=== PATIENT | female | born 1965 | race Caucasian/White ===

== ENCOUNTER 2016-10-11 13:12 | Inpatient (IN) | payer OTHER ==
[2016-10-11] VITALS (7 sets, daily range): BP systolic 124–174; BP diastolic 88–99; PULSE 84–99; RESP 16–18; TEMP 96.6–98.7; O2SAT 98–100
[~2016-10-11] VITALS: Ht 154.9 cm; Wt 48.9 kg
[~2016-10-11 13:12] MED LIST: ALAV10TA10 PO; ALBU0.08 NEB; CLON1TAB PO; GABA100C4 PO; LISI-515 PO; SODI1TAB PO; VENTAER INH
--- NOTE | 2016-10-11 14:44 | PD ---
HPI Chief Complaint: GI Complaint Time Seen by Provider: 14:26 Travel History International Travel<30 days: No Contact w/Intl Traveler<30days: No Traveled to known affect area: No History of Present Illness HPI 51-year-old female complains of nausea and poor appetite and generalized malaise and weakness. Patient states that symptoms started a week ago. Patient states that she has mild aching headache. Patient denies any visual change. Patient denies any neck pain. Patient denies any chest pain or shortness of breath. Patient denies abdominal pain. Patient states that she has nausea but no vomiting or diarrhea. Patient denies dysuria or frequency. Patient denies any fever chills. Patient denies any focal weakness and numbness of extremity. Patient was admitted on September 25 and discharged September 28 for hyponatremia, hypokalemia, COPD, anemia and depression. Patient has been taking sodium tablets as directed. Patient was advised to follow with waist pleater for hyponatremia problem. Patient has not seen a waist pleater as directed. Patient states that she did not take sodium tablets yesterday and today. Patient states that she has intermittent nausea vomiting for the past week. Patient denies any diarrhea. PFSH Past Medical History Hx Anticoagulant Therapy: No Asthma: Yes Autoimmune Disease: No Anxiety: No Depression: No Heart Rhythm Problems: No Cancer: No Cardiovascular Problems: Yes (HTN) High Cholesterol: No Chest Pain: No Congestive Heart Failure: No COPD: Yes Cerebrovascular Accident: No Diabetes: No Diminished Hearing: No Endocrine: No Gastrointestinal Disorders: Yes GERD: Yes Glaucoma: No Genitourinary: No Hepatitis: No Hypertension: Yes Immune Disorder: No Musculoskeletal: Yes Neurologic: Yes Psychiatric: No Reproductive: No Respiratory: Yes (ASTHMA) Immunizations Current: Yes Migraines: Yes Seizures: No Sleep Apnea: No Thyroid Disease: No Ulcer: Yes ?: Not Past Surgical History Abdominal Surgery: Yes (endoscopy and colonoscopy) Cardiac Surgery: No Genitourinary Surgery: No Gynecologic Surgery: Yes (tubal ligation and partial hysterectomy) Hysterectomy: Yes (2007) Pacemaker: No Thoracic Surgery: No Other Surgery: Yes (' BREAST AUGMENTATION ) Social History Alcohol Use: Yes (SOCIALLY) Tobacco Use: Yes (1.5PPD) Substance Use: Yes Allergies-Medications (Allergen,Severity, Reaction): Coded Allergies: Lipitor (Verified Adverse Reaction, Severe, Myalgia, 10/11/16) Codeine (Verified Adverse Reaction, Intermediate, Sedation, 10/11/16) Uncoded Allergies: SEASONAL ALLERGIES (Allergy, Mild, 03/13/08) estroven (Adverse Reaction, Intermediate, raised BP, 06/12/15) Reported Meds & Prescriptions Reported Meds & Active Scripts Active Lisinopril 20 Mg Tab 10 Mg PO DAILY Sodium Chloride 1 Gm Tab 500 Mg PO BID 30 Days Reported Clonazepam 1 Mg Tab 1 Mg PO BID Albuterol Neb (Albuterol Sulfate) 2.5 Mg/3 Ml Neb 2.5 Mg NEB Q2HR While awake Ventolin Hfa 18 GM Inh (Albuterol Sulfate) 90 Mcg/Act Aer 2 Puff INH Q6H PRN Gabapentin 100 Mg Cap 100 Mg PO 5 TIMES A DAY Alavert (Loratadine) 10 Mg Tab 10 Mg PO DAILY Review of Systems General / Constitutional: No: Fever Eyes: No: Visual changes HENT: Positive: Headaches Cardiovascular: No: Chest Pain or Discomfort Respiratory: No: Shortness of Breath Gastrointestinal: No: Abdominal Pain Genitourinary: No: Dysuria Musculoskeletal: No: Pain Skin: No Rash Neurologic: No: Weakness Psychiatric: No: Depression Endocrine: No: Polydipsia Hematologic/Lymphatic: No: Easy Bruising Physical Exam Narrative GENERAL: Well-nourished, well-developed patient. SKIN: Warm and dry. HEAD: Normocephalic. EYES: No scleral icterus. No injection or drainage. NECK: Supple, trachea midline. No JVD or lymphadenopathy. CARDIOVASCULAR: Regular rate and rhythm without murmurs, gallops, or rubs. RESPIRATORY: Breath sounds equal bilaterally. No accessory muscle use. GASTROINTESTINAL: Abdomen soft, non-tender, nondistended. MUSCULOSKELETAL: No cyanosis, or edema. BACK: Nontender without obvious deformity. No CVA tenderness. Neurologic exam normal. Data Data Last Documented VS Vital Signs Date Time Temp Pulse Resp B/P Pulse Ox O2 Delivery O2 Flow Rate FiO2 10/11/16 15:09 16 100 Room Air 10/11/16 13:47 98.7 99 124/89 Orders Electrocardiogram (10/11/16 14:31) Complete Blood Count With Diff (10/11/16 14:31) Comprehensive Metabolic Panel (10/11/16 14:31) Lipase (10/11/16 14:31) Urinalysis - C+S If Indicated (10/11/16 14:31) Thyroid Stimulating Hormone (10/11/16 14:31) Iv Access Insert/Monitor (10/11/16 14:31) Ecg Monitoring (10/11/16 14:31) Oximetry (10/11/16 14:31) Ns + Kcl 20 Meq Inj (Ns + Kcl 20 Meq Inj (10/11/16 14:45) Sodium Chlor 0.9% 1000 Ml Inj (Ns 1000 M (10/11/16 16:45) Labs Laboratory Tests Test 10/11/16 15:05 White Blood Count 7.8 TH/MM3 Red Blood Count 3.95 MIL/MM3 Hemoglobin 11.0 GM/DL Hematocrit 33.3 % Mean Corpuscular Volume 84.4 FL Mean Corpuscular Hemoglobin 27.8 PG Mean Corpuscular Hemoglobin 33.0 % Concent Red Cell Distribution Width 15.1 % Platelet Count 385 TH/MM3 Mean Platelet Volume 8.6 FL Neutrophils (%) (Auto) 73.2 % Lymphocytes (%) (Auto) 16.7 % Monocytes (%) (Auto) 5.2 % Eosinophils (%) (Auto) 0.6 % Basophils (%) (Auto) 4.3 % Neutrophils # (Auto) 5.8 TH/MM3 Lymphocytes # (Auto) 1.3 TH/MM3 Monocytes # (Auto) 0.4 TH/MM3 Eosinophils # (Auto) 0.0 TH/MM3 Basophils # (Auto) 0.3 TH/MM3 CBC Comment DIFF FINAL Differential Comment Sodium Level 113 MEQ/L Potassium Level 3.4 MEQ/L Chloride Level 76 MEQ/L Carbon Dioxide Level 22.1 MEQ/L Anion Gap 15 MEQ/L Blood Urea Nitrogen 4 MG/DL Creatinine 0.52 MG/DL Estimat Glomerular Filtration 124 ML/MIN Rate Random Glucose 98 MG/DL Calcium Level 8.6 MG/DL Total Bilirubin 0.6 MG/DL Aspartate Amino Transf 20 U/L (AST/SGOT) Alanine Aminotransferase 14 U/L (ALT/SGPT) Alkaline Phosphatase 99 U/L Total Protein 7.4 GM/DL Albumin 3.5 GM/DL Lipase 85 U/L Thyroid Stimulating Hormone 0.622 uIU/ML 3rd Gen [facility] Medical Decision Making Medical Screen Exam Complete: Yes Emergency Medical Condition: Yes Interpretation(s) 1626 PM. CBC within normal limit. Sodium 113. Potassium 3.4. TSH normal. Differential Diagnosis Differential diagnosis including electrolyte imbalance, dehydration, viral syndrome, UTI, sepsis. Narrative Course 51-year-old female with nausea, poor appetite and generalized malaise. History of hyponatremia and hypokalemia. Normal saline solution 1 L IV bolus. Normal saline solution with 20 mEq KCl per liter at 1 25 cc an hour. Diagnosis Primary Impression: Hyponatremia Additional Impression: Hypokalemia Admitting Information Admitting Physician Requests: Admit Martin Tom MD Oct 11, 2016 14:43
[2016-10-11] MEDS ORDERED: NS + KCL 20 MEQ INJ 1,000 ML IV SCH ×2 (14:45→17:30)
[2016-10-11 15:13] LABS: AUTOMATED NEUTROPHIL # 5.8 TH/MM3 (1.8-7.7); BASOPHIL # 0.3 TH/MM3 (0-0.2); BASOPHIL % 4.3 % (0.0-2.0); EOSINOPHIL % 0.6 % (0.0-4.0); HEMATOCRIT 33.3 % (35.0-46.0); HEMO FLAGS DIFF FINAL; LYMPH % 16.7 % (9.0-44.0); LYMPHOCYTE # 1.3 TH/MM3 (1.0-4.8); MEAN CELL VOLUME 84.4 FL (80.0-100.0); MEAN CORPUSCULAR HEMOGLOBIN 27.8 PG (27.0-34.0); MONO % 5.2 % (0.0-8.0); NEUT % 73.2 % (16.0-70.0); PLATELET COUNT 385 TH/MM3 (150-450); RED BLOOD COUNT 3.95 MIL/MM3 (4.00-5.30); RED CELL DISTRIBUTION WIDTH 15.1 % (11.6-17.2); WHITE BLOOD COUNT 7.8 TH/MM3 (4.0-11.0)
[2016-10-11 15:54] LABS: ALKALINE PHOSPHATASE 99 U/L (45-117); ALT (GPT) 14 U/L (10-53); ANION GAP 15 MEQ/L (5-15); AST (GOT) 20 U/L (15-37); BICARBONATE 22.1 MEQ/L (21.0-32.0); BLOOD UREA NITROGEN 4 MG/DL (7-18); CHLORIDE 76 MEQ/L (98-107); GLOMERULAR FILTRATION RATE 124 ML/MIN (>89); POTASSIUM 3.4 MEQ/L (3.5-5.1); TOTAL BILIRUBIN ADULT 0.6 MG/DL (0.2-1.0)
[2016-10-11 15:59] LABS: SODIUM (NA) 113 MEQ/L (136-145)
[2016-10-11] MEDS ORDERED: SODIUM CHLOR 0.9% 1000 ML INJ 1,000 ML IV ONE (16:45)
[2016-10-11] MEDS ORDERED: SODIUM CHLORIDE 0.9% FLUSH 5 ML FLUSH IVF PRN (17:00)
[2016-10-11] MEDS ORDERED: ONDANSETRON HCL 4 MG/2 ML VIAL IV PRN (17:00)
[2016-10-11] MEDS: ACETAMINOPHEN 325 MG TAB PO PRN ×2 (17:29→20:01)
[2016-10-11] MEDS ORDERED: ACETAMINOPHEN 325 MG TAB PO ONE (17:30)
[2016-10-11] MEDS ORDERED: IBUPROFEN 600 MG TAB PO ONE (17:30)
[2016-10-11] MEDS ORDERED: ONDANSETRON HCL 4 MG/2 ML VIAL IVP PRN (17:30)
[2016-10-11] MEDS ORDERED: NALOXONE HCL 0.4 MG/ML AMP IV PRN (17:30)
[2016-10-11] MEDS ORDERED: TOLVAPTAN 15 MG TAB PO STA (18:14)
[2016-10-11] MEDS ORDERED: TOLVAPTAN 30 MG TAB PO ONE (18:30)
[2016-10-11] MEDS: SODIUM CHLORIDE 0.9% FLUSH 5 ML FLUSH FLUSH SCH (20:01)
[2016-10-11] MEDS ORDERED: SODIUM CHLORIDE 0.9% FLUSH 5 ML FLUSH IVF SCH (21:00)
[2016-10-11 21:35] LABS: BICARBONATE 20.5 MEQ/L (21.0-32.0)
[2016-10-11 21:43] LABS: POTASSIUM 2.9 MEQ/L (3.5-5.1)
[2016-10-11] MEDS ORDERED: 1/2 NS + KCL 20 MEQ INJ 1,000 ML IV SCH (22:45)
[2016-10-11] MEDS ORDERED: POTASSIUM CHLORIDE 20 MEQ CONTROLLED RELEASE TAB PO ONE (23:00)
[2016-10-11] MEDS ORDERED: DEXTROSE 5% IV PRN (23:15)
[2016-10-11] MEDS ORDERED: WATE IV PRN (23:15)
[2016-10-12] VITALS (8 sets, daily range): BP systolic 97–131; BP diastolic 64–95; PULSE 72–95; RESP 16–20; TEMP 97.1–98.1; O2SAT 87–100
[2016-10-12] MEDS: DEXTROSE 5% IV PRN ×2 (00:02→03:29)
[2016-10-12] MEDS: WATE IV PRN ×2 (00:02→03:29)
[2016-10-12] MEDS: SODIUM CHLORIDE 0.9% FLUSH 5 ML FLUSH FLUSH PRN ×2 (00:03→03:30)
--- NOTE | 2016-10-12 00:06 | RADHPO ---
EXAM DATE/TIME: 10/11/2016 22:53 [facility] COMPARISON: CT ABDOMEN & PELVIS W CONTRAST, October 22, 2014, 15:48. CHEST SINGLE AP, August 05, 2016, 13:44. INDICATIONS : Evaluate for neoplasm. Severe hypotremia. RADIATION DOSE: 6.19 CTDIvol (mGy) MEDICAL HISTORY : Gastroesophageal reflux disease. Chronic obstructive pulmonary disease. Hypertension. SURGICAL HISTORY : Hysterectomy. ENCOUNTER: Initial ACUITY: 1 day PAIN SCALE: 0/10 LOCATION: chest TECHNIQUE: Volumetric scanning of the chest was performed. Using automated exposure control and adjustment of t he mA and/or kV according to patient size, radiation dose was kept as low as reasonably achievable to obtain optimal diagnostic quality images. FINDINGS: LUNGS: There is a masslike area consolidation involving the medial left upper lobe. This extends from the ramirez perior portion of the hilum anteriorly and superiorly. This lesion measures 7.3 x 5.9-2.4 cm. Scatter ed areas of groundglass opacity are seen throughout the remaining lungs bilaterally but most pronounc ed within the left lower lobe. PLEURAE: A tiny left pleural effusion. No effusion on the right. MEDIASTINUM: The heart is normal in size. Significant coronary artery atherosclerotic calcifications noted. Aorta and pulmonary arteries are normal in caliber. Mediastinal adenopathy is seen involving anterior media stinum. The largest lymph node is within the aorticopulmonary window measuring 2.3 x 1.3 cm. No peric ardial effusion. AXILLAE: Within normal limits. No lymphadenopathy. MUSCULOSKELETAL: Within normal limits for patient age. MISCELLANEOUS: Multiple low density masses are seen within the visualized portions of the liver. The largest is with in the right lobe measuring 2.8 cm. Bilateral breast implants. CONCLUSION: 1. Mass-like consolidation involving the left upper lobe with metastatic involvement to the liver and mediastinal lymph nodes. The dominant hepatic lesion is percutaneously accessible for biopsy. Baron Layton Jr., MD on October 11, 2016 at 23:58 Board Certified Radiologist. This report was verified electronically.
[2016-10-12 00:18] LABS: BLOOD, URINE TRACE (NEG); GLUCOSE,URINE NEG (NEG); KETONE, URINE NEG (NEG); NITRITE,URINE NEG (NEG)
[2016-10-12 00:25] LABS: METHOD OF COLLECTION CLEAN CATCH; URINE COLOR STRAW (YELLW/STRAW)
[2016-10-12 00:26] LABS: RBC, URINE 0-3 /hpf (0-3); SQUAMOUS EPITHELIAL CELL URINE 0-5 /hpf (0-5)
[2016-10-12 00:29] LABS: COMMENT (UR) CULT NOT INDICATED; CULTURE IF INDICATED CULT NOT INDICATED
[2016-10-12] MEDS: ACETAMINOPHEN 325 MG TAB PO PRN ×2 (04:58→14:32)
[2016-10-12 06:23] LABS: BASOPHIL % 0.5 % (0.0-2.0); EOSINOPHIL % 0.3 % (0.0-4.0); HEMATOCRIT 30.5 % (35.0-46.0); LYMPH % 20.2 % (9.0-44.0); LYMPHOCYTE # 1.2 TH/MM3 (1.0-4.8); MEAN CELL VOLUME 83.8 FL (80.0-100.0); MEAN CORPUSCULAR HEMOGLOBIN 27.9 PG (27.0-34.0); MEAN CORPUSCULAR HGB CONC 33.3 % (32.0-36.0); MONO % 10.4 % (0.0-8.0); NEUT % 68.6 % (16.0-70.0); PLATELET COUNT 384 TH/MM3 (150-450); RED BLOOD COUNT 3.64 MIL/MM3 (4.00-5.30); RED CELL DISTRIBUTION WIDTH 15.8 % (11.6-17.2); WHITE BLOOD COUNT 5.8 TH/MM3 (4.0-11.0)
[2016-10-12 06:27] LABS: HEMO FLAGS AUTO DIFF
[2016-10-12 06:43] LABS: BICARBONATE 22.1 MEQ/L (21.0-32.0); POTASSIUM 4.2 MEQ/L (3.5-5.1)
[2016-10-12 07:35] LABS: SCAN/DIFF AUTO DIFF CONFIRMED
[2016-10-12] MEDS: SODIUM CHLORIDE 0.9% FLUSH 5 ML FLUSH FLUSH SCH ×2 (09:00→20:58)
--- NOTE | 2016-10-12 09:26 | PD.CONS ---
HPI Consult Requested By Reason for Consult Hyponatremia Primary Care Physician Adele Chow History of Present Illness This is my first encounter with this patient who apparently has been admitted multiple times previously with hyponatremia. 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 Patient has been on salt pills previously but somewhat noncompliant. Has not followed up with a tissue inserter as an outpatient apparently. On questioning patient she indicated that she has been smoking since the age of 11 and continues to do so. Patient now presents again with complaints of nausea , anorexia. No history of thiazide diuretic usage, significant NSAID usage, denying excessive fluid intake also. No previous history of hypo-thyroidism and she has been screened for same in the past. Review of Systems Respiratory: COMPLAINS OF: Cough, DENIES: Apneas, Snoring, Wheezing, Hemoptysis, Sputum production, Shortness of breath Cardiovascular: DENIES: Chest pain, Palpitations, Syncope, Dyspnea on Exertion , PND, Lower Extremity Edema, Orthopnea, Claudication Gastrointestinal: COMPLAINS OF: Anorexia, DENIES: Abdominal pain, Black stools , Bloody stools, Constipation, Diarrhea, Nausea, Vomiting, Difficulty Swallowing Genitourinary: DENIES: Abnormal vaginal bleeding, Dysmenorrhea, Dyspareunia, Sexual dysfunction, Urinary frequency, Urinary incontinence, Urgency, Hematuria , Dysuria, Nocturia, Vaginal discharge Past Family Social History Allergies: Coded Allergies: Lipitor (Verified Adverse Reaction, Severe, Myalgia, 10/11/16) Codeine (Verified Adverse Reaction, Intermediate, Sedation, 10/11/16) Uncoded Allergies: SEASONAL ALLERGIES (Allergy, Mild, 03/13/08) estroven (Adverse Reaction, Intermediate, raised BP, 06/12/15) Past Medical History COPD Chronic tobacco use Recurrent hyponatremia with previous admissions. Past Surgical History Noncontributory to current complaint. Reported Medications Reported Meds & Active Scripts Active Lisinopril 20 Mg Tab 10 Mg PO DAILY Sodium Chloride 1 Gm Tab 500 Mg PO BID 30 Days Reported Clonazepam 1 Mg Tab 1 Mg PO BID Albuterol Neb (Albuterol Sulfate) 2.5 Mg/3 Ml Neb 2.5 Mg NEB Q2HR While awake Ventolin Hfa 18 GM Inh (Albuterol Sulfate) 90 Mcg/Act Aer 2 Puff INH Q6H PRN Gabapentin 100 Mg Cap 100 Mg PO 5 TIMES A DAY Alavert (Loratadine) 10 Mg Tab 10 Mg PO DAILY Active Ordered Medications Current Medications Potassium Chloride/Sodium Chloride 1,000 ml @ 125 mls/hr Q8H IV Last administered on 10/11/16 14:54; Start 10/11/16 at 14:45; Stop 10/11/16 at 22:42; Status DC Sodium Chloride (NS 1000 ml Inj) 1,000 ml @ 999 mls/hr BOLUS ONCE IV Last administered on 10/11/16 16:52; Start 10/11/16 at 16:45; Stop 10/11/16 at 17:45; Status DC Ondansetron HCl (Zofran Inj) 4 mg Q6H PRN IV NAUSEA OR VOMITING; Start 10/11/16 at 17:00 IV Flush (NS Flush) 2 ml BID IVF ; Start 10/11/16 at 21:00; Stop 10/11/16 at 22:44 ; Status DC IV Flush (NS Flush) 2 ml UNSCH PRN IVF FLUSH AFTER USING IV ACCESS; Start at 17:00; Stop 10/11/16 at 22:44; Status DC Ibuprofen (Motrin) 600 mg ONCE ONCE PO ; Start 10/11/16 at 17:30; Stop 10/11/16 at 17:31; Status DC IV Flush (NS Flush) 2 ml UNSCH PRN FLUSH FLUSH AFTER USING IV ACCESS Last administered on 10/12/16 03:30; Start 10/11/16 at 17:30 IV Flush (NS Flush) 2 ml BID FLUSH Last administered on 10/12/16 09:00; Start 10/11/16 at 21:00 Acetaminophen (Tylenol) 650 mg Q4H PRN PO TEMP > 100.4 Last administered on 10/12 04:58; Start 10/11/16 at 17:30 Ondansetron HCl (Zofran Inj) 4 mg Q6H PRN IVP NAUSEA OR VOMITING; Start at 17:30; Stop 10/11/16 at 17:30; Status DC Naloxone HCl 0.4 mg 0.4 mg UNSCH PRN IV SEE LABEL COMMENTS; Start 10/11/16 at 17 :30 Potassium Chloride/Sodium Chloride (NS + KCl 20 Meq Inj) 1,000 ml @ 125 mls/hr Q8H IV ; Start 10/11/16 at 17:30; Stop 10/11/16 at 22:42; Status DC Acetaminophen (Tylenol) 650 mg ONCE ONCE PO ; Start 10/11/16 at 17:30; Stop 10/11 at 17:31; Status DC Tolvaptan (Samsca) 15 mg ONCE STAT PO ; Start 10/11/16 at 18:14; Stop 10/11/16 at 18:22; Status DC Tolvaptan 15 mg 15 mg STAT ONCE PO Last administered on 10/11/16 18:30; Start 10/11/16 at 18:30; Stop 10/11/16 at 18:31; Status DC Potassium Chloride/Sodium Chloride (10/10 NS + KCl 20 Meq Inj) 1,000 ml @ 75 mls/ hr [id number] IV ; Start 10/11/16 at 22:45; Stop 10/11/16 at 23:06; Status DC Potassium Chloride 40 meq 40 meq NOW ONCE PO Last administered on 10/11/16 23: 43; Start 10/11/16 at 23:00; Stop 10/11/16 at 23:02; Status DC Dextrose 400 ml @ 200 mls/hr BOLUS PRN IV As per Comments X 1.; Start 10/11/16 at 23:15; Stop 10/12/16 at 00:00; Status DC Dextrose 400 ml @ 200 mls/hr BOLUS PRN IV SEE COMMENTS Last administered on 03:29; Start 10/12/16 at 00:15 Dextrose (D5W 500 ml Inj) 500 ml @ 250 mls/hr BOLUS ONCE IV ; Start 10/12/16 at 09:30; Stop 10/12/16 at 11:29; Status UNV Desmopressin Acetate (Ddavp Inj) 1 mcg ONCE ONCE IV PUSH ; Start 10/12/16 at 09: 30; Stop 10/12/16 at 09:31; Status UNV Family History Noncontributory to current complaint. Social History Alcohol usage said to have been discontinued several months ago. Ongoing chronic tobacco usage since the age of 11. Physical Exam Vital Signs Vital Signs Date Time Temp Pulse Resp B/P Pulse Ox O2 Delivery O2 Flow Rate FiO2 10/12/16 04:00 97.3 87 18 102/70 87 1/4/17 00:00 97.2 91 18 97/64 97 10/11/16 20:00 96 10/11/16 20:00 96.7 85 18 155/94 100 10/11/16 20:00 98 21 10/11/16 18:48 174/88 10/11/16 18:19 96.6 87 16 174/99 100 10/11/16 16:53 84 16 158/99 98 Room Air 10/11/16 16:50 98 21 10/11/16 15:09 16 100 Room Air 10/11/16 13:47 98.7 99 16 124/89 100 Physical Exam GENERAL: Not in respiratory distress. SKIN: Warm and dry. HEAD: Normocephalic. EYES: No scleral icterus. No injection or drainage. NECK: Supple, trachea midline. No JVD or lymphadenopathy. CARDIOVASCULAR: Regular rate and rhythm without murmurs, gallops, or rubs. RESPIRATORY: Breath sounds equal bilaterally. No accessory muscle use. GASTROINTESTINAL: Abdomen soft, non-tender, nondistended. MUSCULOSKELETAL: No cyanosis, or edema. No CVA tenderness. Laboratory Laboratory Tests Test 10/11/16 10/11/16 10/11/16 10/12/16 15:05 21:09 22:00 02:50 White Blood Count 7.8 Red Blood Count 3.95 Hemoglobin 11.0 Hematocrit 33.3 Mean Corpuscular Volume 84.4 Mean Corpuscular Hemoglobin 27.8 Mean Corpuscular Hemoglobin 33.0 Concent Red Cell Distribution Width 15.1 Platelet Count 385 Mean Platelet Volume 8.6 Neutrophils (%) (Auto) 73.2 Lymphocytes (%) (Auto) 16.7 Monocytes (%) (Auto) 5.2 Eosinophils (%) (Auto) 0.6 Basophils (%) (Auto) 4.3 Neutrophils # (Auto) 5.8 Lymphocytes # (Auto) 1.3 Monocytes # (Auto) 0.4 Eosinophils # (Auto) 0.0 Basophils # (Auto) 0.3 CBC Comment DIFF FINAL Differential Comment Sodium Level 113 122 129 Potassium Level 3.4 2.9 Chloride Level 76 89 Carbon Dioxide Level 22.1 20.5 Anion Gap 15 13 Blood Urea Nitrogen 4 4 Creatinine 0.52 0.66 Estimat Glomerular Filtration 124 94 Rate Random Glucose 98 125 Calcium Level 8.6 8.0 Total Bilirubin 0.6 Aspartate Amino Transf 20 (AST/SGOT) Alanine Aminotransferase 14 (ALT/SGPT) Alkaline Phosphatase 99 Total Protein 7.4 Albumin 3.5 Lipase 85 Thyroid Stimulating Hormone 0.622 3rd Gen Ethyl Alcohol Level 0 Urine Collection Type CLEAN CATCH Urine Color STRAW Urine Turbidity CLEAR Urine pH 6.0 Urine Specific Rousseau 1.001 Urine Protein NEG Urine Glucose (UA) NEG Urine Ketones NEG Urine Occult Blood TRACE Urine Nitrite NEG Urine Bilirubin NEG Urine Leukocyte Esterase NEG Urine RBC 0-3 Urine Squamous Epithelial 0-5 Cells Urine Amorphous Sediment SMALL Microscopic Urinalysis Comment CULT NOT INDICATED Test 10/12/16 05:35 White Blood Count 5.8 Red Blood Count 3.64 Hemoglobin 10.1 Hematocrit 30.5 Mean Corpuscular Volume 83.8 Mean Corpuscular Hemoglobin 27.9 Mean Corpuscular Hemoglobin 33.3 Concent Red Cell Distribution Width 15.8 Platelet Count 384 Mean Platelet Volume 9.2 Neutrophils (%) (Auto) 68.6 Lymphocytes (%) (Auto) 20.2 Monocytes (%) (Auto) 10.4 Eosinophils (%) (Auto) 0.3 Basophils (%) (Auto) 0.5 Neutrophils # (Auto) 4.0 Lymphocytes # (Auto) 1.2 Monocytes # (Auto) 0.6 Eosinophils # (Auto) 0.0 Basophils # (Auto) 0.0 CBC Comment AUTO DIFF Differential Comment AUTO DIFF CONFIRMED Sodium Level 130 Potassium Level 4.2 Chloride Level 98 Carbon Dioxide Level 22.1 Anion Gap 10 Blood Urea Nitrogen 2 Creatinine 0.62 Estimat Glomerular Filtration 101 Rate Random Glucose 121 Calcium Level 9.0 Result Diagram: 10/12/16 0535 10/12/16 0535 Imaging Last [address] 10/11/16 0000 Signed Impressions: Service Date/Time: Tuesday, October 11, 2016 22:53 - CONCLUSION: 1. Mass-like consolidation involving the left upper lobe with metastatic involvement to the liver and mediastinal lymph nodes. The dominant hepatic lesion is percutaneously accessible for biopsy. Baron Layton Jr., MD Assessment and Plan Problem List: (1) Hyponatremia Plan: This is my first encounter with this patient who has been admitted previously with hyponatremia. Patient may have had idiopathic SIADH based on previous urine osmolalities from previous admissions however in view of tobacco history I ordered a CT of the chest and there is evidence of masslike lesion involving the left upper lobe with suggestion of metastatic involvement of the liver. I informed the patient that there is a lesion within her lung and that she would be seeing pulmonary. Patient may have small cell carcinoma the lung. Agree with pulmonary consultation and she may require oncology consultation also. 1 dose of Samsca was administered last night. Serum sodium level is improving more rapidly than I would like. 2 doses of D5W have been administered overnight and we will order another bolus with 1 dose of desmopressin with follow-up of the sodium level. The patient indicated that Samsca was very expensive and she cannot afford same and also the FDA does not recommend usage beyond 30 days regardless. I advised her that I would likely have to resume sodium chloride pills with fluid restriction and I emphasize the importance of compliance with same post discharge. Patient will be seen when necessary. Please do not hesitate to call. Discussed Condition With Patient. Rafiq Rai MD Oct 12, 2016 09:26
[2016-10-12] MEDS ORDERED: DEXTROSE 5% IN WATE 500 ML INJ 500 ML IV ONE ×2 (09:30→18:45)
[2016-10-12] MEDS ORDERED: DESMOPRESSIN ACETATE 4 MCG/ML VIAL IV PUSH ONE ×3 (09:30→18:45)
--- NOTE | 2016-10-12 11:44 | EKG ---
Date Performed: 10/11/2016 Time Performed: 14:54:42 PTAGE: 51 years EKG: Sinus rhythm Possible left atrial abnormality rSr'(V1) - probable normal variant Possible inferior infarct - age undetermined Septal ST changes are nonspecific Abnormal ECG PREVIOUS TRACING : 09/25/2016 13.36 DOCTOR: Jamel Rausch Interpretating Date/Time 10/12/2016 11:43:10
[2016-10-12] MEDS ORDERED: ALBUTEROL SULFATE 90 MCG/ACT HFA 8 GM INHALER INH PRN (14:15)
[2016-10-12] MEDS: clonazePAM 1 MG TAB PO SCH ×2 (14:15→20:59)
[2016-10-12] MEDS: LORATADINE 10 MG TAB PO SCH (14:28)
[2016-10-12] MEDS: SODIUM CHLORIDE 1 GRAM TAB PO SCH ×2 (14:28→20:59)
--- NOTE | 2016-10-12 14:48 | MH ---
cc: ULI GARNETT MD DATE OF ADMISSION: 10/11/2016 CHIEF COMPLAINT Generalized weakness HISTORY OF PRESENT ILLNESS This is 51-year-old female with past medical and surgical history significant for hypertension, GERD, COPD, asthma, stomach ulcer, history of endoscopy and colonoscopy in the past, tubal ligation and partial hysterectomy in 2007 and breast augmentation in 1992, who came to the ER at [facility] complaining of nausea and poor appetite and generalized malaise and weakness. She feels very weak and tired. She denies any chest pain, any shortness of breath. She denies any abdominal pain. She has a mild achy headache. Denies any visual changes. Denies any neck pain. Denies any neck stiffness. Denies any fever or chills. Denies any blood in the stool. Denies any nausea, vomiting or diarrhea. The patient denies any difficulty with urination, painful urination or UTI symptoms. Denies any focal weakness or numbness. She was admitted on September 25 and discharged on September 28 for hyponatremia and hypokalemia, COPD, anemia and depression. Other than that her sodium on that admission was 113 and now sodium increased is increased to 133. The patient also had a low potassium of 2.9 which improved to 4.2. The patient denies any symptoms at the time of examination. The nurse, Torie, was present in the room during the whole time. All questions were answered to the patient's satisfaction. Other than that nothing significant. PAST MEDICAL/SURGICAL HISTORY As dictated above. SOCIAL HISTORY She smoked 1-1/2 packs a day since the age of 11. She drank socially but says she quit. Denies any drug abuse. She lives at home with her and she is unemployed. FAMILY HISTORY Her father had a heart attack. ALLERGIES 1. LIPITOR. 2. CODEINE. 3. SEASONAL ALLERGIES. 4. ESTROVEN. MEDICATIONS 1. Lisinopril 20 mg p.o. daily. 2. Sodium chloride 1 mg p.o. b.i.d. 3. Clonazepam 1 mg p.o. b.i.d. 4. Albuterol nebulization 2.5 mg q.2h. 5. Ventolin HFA 18 mcg, two puffs inhalation q.6h. 6. Gabapentin 100 mg five times a day. 7. Alavert 10 mg p.o. daily. REVIEW OF SYSTEMS The review of systems is negative except for feeling weak and tired. PHYSICAL EXAMINATION GENERAL: This is a 51-year-old female sitting on the bed, not in acute distress. VITAL SIGNS: Temperature 97.7, heart rate 91, respirations 18, blood pressure 121/85. O2 saturation 98% on room air. HEENT: Normocephalic, atraumatic. EOMI. PERRL. Oral mucosa moist. NECK: Supple. No visible thyromegaly or neck mass. Trachea is central. CARDIOVASCULAR: Regular rate and rhythm. LUNGS: Respiration is bilaterally clear to auscultation. ABDOMEN: Soft, nontender. Bowel sounds audible. EXTREMITIES: No cyanosis or clubbing. Full range of motion of all extremities. NEUROLOGIC: Awake, alert, oriented x4. No focal deficit. SKIN: Warm and dry. PSYCHIATRIC: Patient is cooperative. Mood and affect are normal. LABORATORY DATA CBC shows a WBC count of 5.8. Hemoglobin was 11.0 now it is 10.1. Hematocrit was 33.3 now it is 30.5. [place] is 10.4 high, neutrophils 73.2 high. BMP is totally unremarkable except for sodium was 113 now it is 133, potassium was 3.4 now it is 4.2, chloride was 89 now it is 98, carbon dioxide was 20.5 now it is 22.1. BUN 4 low. Glucose random 121 high. Ethyl alcohol 0. Urinalysis shows trace occult blood, specific gravity 1.0. IMAGING DATA CT chest was done and shows a mass-like consolidation involving the left upper lobe with metastatic involvement to the liver and mediastinal lymph nodes. A dominant hepatic lesion is percutaneously assessable for biopsy. ASSESSMENT AND PLAN 1. This is 51-year-old female who came to the ER diagnosed with generalized weakness, most likely secondary to hyponatremia and hypokalemia. The patient's sodium and potassium have improved. Nephrology, Dr. Manuel, has seen the patient. Per nephrology Samsca is very expensive and cannot afford. The same also does not recommend usage beyond 30 days regardless and they recommended to resume the sodium chloride pill with fluid restriction. She has a mass-like consolidative involving the left upper lobe with metastatic involvement of the liver and mediastinal lymph nodes. No hepatic lesion is percutaneous accessible for biopsy. I will consult pulmonology and oncology. The patient was advised to quit smoking. She has been smoking since the age of 11. 2. History of smoking. Patient advised to quit. 3. Hypertension. Continue home medication. 4. History of anxiety. Continue home medication. 5. We are going to manage the patient on a daily basis and make recommendations on a daily basis. Uli Garnett MD EA/STEFFANIE /2:06 PM /2:23 PM
[2016-10-12] MEDS ORDERED: RESP: ALBUTEROL 2.5 MG/3 ML NEB (PRN) NEB (16:00)
[2016-10-12] MEDS: LISINOPRIL 10 MG TAB PO SCH (16:16)
[2016-10-12] MEDS: GABAPENTIN 100 MG CAP PO SCH ×2 (16:17→20:59)
[2016-10-12 18:00] LABS: MAGNESIUM 1.8 MG/DL (1.5-2.5)
[2016-10-12] MEDS: cefTRIAXone INJ 1,000 MG in SODIUM CHLORIDE 0.9% INJ 100 ML IV SCH (18:28)
[2016-10-12] MEDS: RESP: ALBUTEROL 2.5 MG/IPRATROPIUM 0.5 MG NEB (SCH) NEB (19:54)
[2016-10-12] MEDS: BUDESONIDE-FORMOTEROL 160/4.5 MCG INHALER INH SCH (20:58)
[2016-10-12 21:01] LABS: POTASSIUM 3.8 MEQ/L (3.5-5.1)
[2016-10-12 21:13] LABS: BETA HCG QUANT 3 MIU/ML (0-5)
--- NOTE | 2016-10-12 21:13 | MB ---
cc: LISA HOFFMANN DATE OF CONSULTATION: 10/12/16 INPATIENT CONSULT AT [facility] DATE OF 1965 REASON FOR CONSULTATION Patient with findings of a lung lesion as well as liver lesions and hyponatremia. CHIEF COMPLAINT Confusion, hyponatremia, confusion/low sodium levels. HISTORY OF PRESENT ILLNESS Mrs. Galaviz is a 51-year-old female with a past medical history of extensive tobacco abuse of approximately 70 pack-years. She smokes two packs of cigarettes and has done so for the last 30-35 years. She also has a history of hypertension, anxiety, asthma and peripheral neuropathy. The patient was admitted to the hospital with hyponatremia. The patient states that sometime in June and July of 2016 she visited her primary care physician and was found to be hyponatremic. She has had multiple hospital admissions since then and she developed confusion. She was again admitted to the hospital yesterday with hyponatremia. On admission she had a CT of the chest without IV contrast and this showed a mass-like consolidation area involving the medial left upper lobe of the lung. This extended from the superior portion of the hilum anteriorly and superiorly. This lesion is quite large and measures 7.3 x 5.9 x 2.4 cm. There is a tiny left pleural effusion. There is also mediastinal lymphadenopathy seen involving the anterior mediastinum. The largest lymph node is within the aortopulmonary window measuring 2.3 x 1.3 cm. There are also multiple low-density lesions visualized in the liver. The largest lesion is in the right lobe and measures 2.8 cm. I have been consulted to evaluate this patient who has a long history of tobacco abuse and now what appears to be bronchogenic carcinoma which is metastatic to liver. She also has hyponatremia. The patient lives in the [facility] with her . She does not have any children. She does not work. She complains of constant headaches that come and go. She has had confusion previously but she is currently alert and oriented. She does not have any dysphagia. She denies any shortness of breath, no hemoptysis, no chest pain, no abdominal pain, no changes in her bowel habits. She does not have any lower extremity edema or pain. She denies any nosebleeds, gum bleeds, petechiae or lesions. No bright red blood per rectum or melena. Her ECOG performance status is 1. REVIEW OF SYSTEMS A comprehensive 14-point review of systems was completed which is negative except as described in the HPI. PAST MEDICAL HISTORY 1. Hypertension. 2. Hyperlipidemia. 3. Asthma. 4. Anxiety. 5. Peripheral neuropathy. MEDICATIONS 1. Lisinopril 20 mg daily. 2. Sodium chloride 1 mg p.o. b.i.d. 3. Clonazepam 1 mg p.o. b.i.d. 4. Albuterol nebulizer 2.5 mg q.2 hours p.r.n. 5. Ventolin HFA 18 mcg two puffs INH q.6 hours. 6. Gabapentin 100 mg three times a day. 7. Alavert 10 mg one tablet p.o. daily. ALLERGIES SHE IS ALLERGIC TO LIPITOR, CODEINE, ESTROVEN AND SHE HAS SEASONAL ALLERGIES. FAMILY HISTORY Reviewed. Significant for coronary artery disease. SOCIAL HISTORY She lives with her in [place]. She is unemployed. She smokes two packs of cigarettes and has done that since age 11. She occasionally drinks alcohol. No illicit drug use. PHYSICAL EXAMINATION VITAL SIGNS: Blood pressure is 118/80, pulse is in the 80s, temperature is 97.7, respiratory rate is 16, O2 sats are 98% on room air. GENERAL: A thin female in no apparent distress. HEENT: Pupils are equal, round and reactive to light. EOMI. No oral thrush. No oral lesions. NECK: Neck is supple. No JVD. No bruits. No lymphadenopathy. CHEST: Chest is clear to auscultation bilaterally. CARDIAC: S1, S2. Regular rate and rhythm. ABDOMEN: Abdomen is soft, nontender, nondistended. Bowel sounds are present. EXTREMITIES: Extremities without any edema, erythema or cyanosis. SKIN: Skin without any petechiae, lesions or bruises. NEUROLOGIC: No focal deficits. PSYCHIATRIC: Mood and affect is appropriate. LYMPH NODES EXAM: No cervical, supraclavicular, axillary, epitrochlear or inguinal lymphadenopathy on exam. LABORATORY DATA WBC is 5.8, hemoglobin is 10.1, MCV is 83.8, platelet count is 384. Chemistries: Sodium 132, potassium 4.2, chloride 98, CO2 22.1, anion gap 20, BUN 2, creatinine 0.62, GFR is 101, glucose is 121, calcium 9, magnesium is 1.8. IMAGING Reviewed in the HPI. ASSESSMENT AND PLAN This is a 51-year-old female with a past medical history of extensive tobacco abuse, COPD, asthma, hypertension, hyperlipidemia, anxiety, and history of hyponatremia discovered in June of 2016 who presents with hyponatremia. She has also lost 30 pounds unintentionally over the past six months. She appears cachectic. 1. Lung lesion involving the medial left upper lobe. This is a fairly large lesion which is 7.3 x 5.9 x 2.4 cm, there is mediastinal involvement. Additionally, there appears to be a metastatic lesion in the liver in the right lobe measuring 2.8 cm. Given her past medical history of smoking cigarettes and findings on imaging, this is highly suspicious for bronchogenic carcinoma. It appears to be metastatic disease. I had a long conversation with the patient. In order to make a diagnosis we have to obtain a tissue biopsy. It appears that her liver lesion is amenable to CT-guided biopsy. The patient is agreeable to proceeding with this procedure. I will refer her to interventional radiology for a CT-guided biopsy of the liver lesion. We will need to obtain a CT of the abdomen and pelvis as well as an MRI of the brain to complete her staging. I explained to her that if this is confirmed metastatic bronchogenic carcinoma that she will require systemic chemotherapy treatments. There will not be any surgical or radiation options. After the completion of biopsy and CT of the chest, abdomen and pelvis as well as the MRI, the patient can be discharged if she is stable. The patient can be scheduled for an outpatient port placement once we have confirmed the diagnosis. She will also need outpatient PET-CT scan. Check CEA and LDH levels. 2. Hyponatremia. 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 I agree with sodium tabs orally as well as oral free water restriction. 3. Normocytic anemia with a hemoglobin of 10.1. Anemia studies. Check B12 and folate. Obtain a stool hemoccult. 4. History of COPD/tobacco abuse. I counseled the patient to abstain from smoking. All questions asked by the patient were answered. Thank you for allowing me to participate in the care of this patient. MD DOMINICK Brown/KI /7:55 PM /8:25 PM EMELI
[2016-10-12 23:11] LABS: TRANSFERRIN IRON PROFILE 188 MG/DL (200-360)
[2016-10-12] MEDS ORDERED: IOHEXOL 300 MG/ML 100 ML BTL (for Rad CT) IV ONE (23:21)
--- NOTE | 2016-10-12 23:40 | MB ---
cc: ULI GARNETT MD, JOHN DATE OF CONSULTATION: 10/12/2016 REASON FOR CONSULTATION: Lung density. HISTORY OF PRESENT ILLNESS: This is a 51-year-old white female who has had a history of hypertension, COPD, asthma and gastroesophageal reflux, who has been admitted through the emergency room with complaints of nausea, abdominal pain, loss of appetite and generalized weakness. She has had these symptoms for the past 2-3 months. She also stated she has lost about 30 pounds of weight in the past 4 months. She denied any GI bleed but has had some nausea. The patient also has mild cough but does not bring up much sputum. Upon arrival, however, chest CT was obtained and CT chest demonstrated evidence of rounded infiltrate in the left lung field and also some mediastinal adenopathy and lesions in the liver which may be metastatic lesions. The patient was then admitted. She has been started on oxygen at two liters. She was given potassium infusion since her K-level was only 2.9, but did improve to over 4. Presently she is feeling somewhat better and denies any chest tightness or shortness of breath. PAST HISTORY 1. History of tubal ligation and partial hysterectomy. 2. Breast augmentation surgery. 3. Hypertension. 4. History of asthma with chronic bronchitis. HABITS: The patient was a smoker, one pack per day for almost 40 years and trying to quit. No significant alcohol use at this time. No illicit drug use. FAMILY HISTORY: Significant for heart disease in her father. ALLERGIES CODEINE. LIPITOR ESTROVEN MEDICATIONS: 1. Ventolin 2 puffs q.i.d. p.r.n. 2. Gabapentin 100 milligrams q.i.d. 3. Alavert 10 milligrams daily. 4. Clonazepam 1 mg b.i.d. 5. Lisinopril 20 mg a day. SYSTEM REVIEW: The patient has had significant weight loss. She has dizziness, postnasal drip, cough and wheezing. She has some epigastric discomfort and abdominal cramping. She denies any GI bleed. No urinary symptoms. No leg or calf muscle pain. She has some joint pain. PHYSICAL EXAMINATION This thinly built middle-aged white female is alert, pale and in no acute distress. VITAL SIGNS: Blood pressure 130/70, pulse is 85, respirations are 18, temperature 97.5. HEENT: Head normocephalic. Pupils reactive. Tongue is moist. Nasal mucosa erythematous. Throat is injected. NECK: Supple. No lymphadenopathy. Trachea midline. CHEST: Equal movements with distant breath sounds with occasional wheezes, bilaterally prolonged expirations. HEART: The heart sounds are irregular. S1-S2 with no murmur. No S3 gallop. ABDOMEN: Soft, protuberant, no masses, no organomegaly. Liver is just felt below the costal margin. Bowel sounds are active. EXTREMITIES: No edema, no lesions. No calf tenderness. Reflexes are normal. NEUROLOGIC: There are no gross motor deficits. Cranial nerves II-XII grossly intact. RECTAL: Deferred. SKIN: No lesions. IMPRESSION 1. COPD with chronic bronchitis and acute exacerbation. 2. Left upper lobe lung density, possible obstructive pneumonia with malignancy. 3. Liver lesions, rule out malignancy. PLAN The patient had been placed on O2 at 2 liters and a blood gas study will be obtained. Nebulized albuterol/Atrovent solution added q.i.d. She was also counseled about quitting cigarette smoking and use a nicotine patch. We will add IV antibiotic therapy including Rocephin 1 gram daily IV, and a CT-guided biopsy of the liver lesion to be done by radiology. Pulmonary function study was also ordered at the bedside. If the biopsy of the liver lesion is inconclusive bronchoscopy will be scheduled. Thank you, Dr. Uli Ganrett, for this consultation. MD KAUR Roger/IFTIKHAR /10:59 PM /11:14 PM
--- NOTE | 2016-10-12 23:49 | RADHPO ---
EXAM DATE/TIME: 10/12/2016 23:16 [facility] COMPARISON: CT ABDOMEN & PELVIS W CONTRAST, October 22, 2014, 15:48. INDICATIONS : Lung and liver cancer. Evaluate metastatic disease. IV CONTRAST: 100 cc Omnipaque 300 (iohexol) IV ORAL CONTRAST: No oral contrast ingested. RADIATION DOSE: 4.74 CTDIvol (mGy) MEDICAL HISTORY : Carcinoma, lung. Carcinoma, hepatocellular. Hypertension. SURGICAL HISTORY : Tubal ligation. Hysterectomy. ENCOUNTER: Initial ACUITY: 1 day PAIN SCALE: 0/10 LOCATION: abdomen TECHNIQUE: Volumetric scanning of the abdomen and pelvis was performed. Using automated exposure control and ad justment of the mA and/or kV according to patient size, radiation dose was kept as low as reasonably achievable to obtain optimal diagnostic quality images. FINDINGS: LOWER LUNGS: The visualized lower lungs are clear. LIVER: Multiple new hepatic masses are seen. These are scattered throughout the left and right lobes of the liver. The largest lesion measures 2.2 cm within the medial portion of segment 6. No ductal dilatatio n. Portal vein is patent. Gallbladder is unremarkable. SPLEEN: Absent or atrophic. PANCREAS: Within normal limits. KIDNEYS: Normal in size and shape. There is no mass, stone or hydronephrosis. ADRENAL GLANDS: Within normal limits. VASCULAR: There is no aortic aneurysm. BOWEL/MESENTERY: The stomach, small bowel, and colon demonstrate no acute abnormality. There is no free intraperitone al air or fluid. ABDOMINAL WALL: Within normal limits. RETROPERITONEUM: There is no lymphadenopathy. BLADDER: No wall thickening or mass. REPRODUCTIVE: Within normal limits. INGUINAL: There is no lymphadenopathy or hernia. MUSCULOSKELETAL: Scattered subtle areas of sclerosis throughout the lumbar spine consistent with metastatic disease. T he largest lesion involves the L1 vertebral body. This measures 2 cm in diameter. CONCLUSION: 1. Multiple hepatic lesions consistent with metastatic disease. The largest lesion measures 2.2 cm wi thin segment 6 and has percutaneously accessible for biopsy. 2. Subtle areas of sclerosis scattered throughout the lumbar spine consistent with metastatic disease . Baron Layton Jr., MD on October 12, 2016 at 23:35 Board Certified Radiologist. This report was verified electronically.
[2016-10-13] VITALS (11 sets, daily range): BP systolic 121–182; BP diastolic 75–96; PULSE 65–102; RESP 15–20; TEMP 95–97.9; O2SAT 94–100
[2016-10-13 00:24] LABS: LDH SERUM 147 U/L (84-246)
[2016-10-13] MEDS: GABAPENTIN 100 MG CAP PO SCH ×5 (06:00→21:00)
[2016-10-13 06:11] LABS: AUTOMATED NEUTROPHIL # 3.1 TH/MM3 (1.8-7.7); BASOPHIL # 0.1 TH/MM3 (0-0.2); EOSINOPHIL # 0.1 TH/MM3 (0-0.4); EOSINOPHIL % 0.9 % (0.0-4.0); HEMATOCRIT 29.3 % (35.0-46.0); HEMO FLAGS DIFF FINAL; LYMPH % 42.3 % (9.0-44.0); LYMPHOCYTE # 2.8 TH/MM3 (1.0-4.8); MEAN CELL VOLUME 84.8 FL (80.0-100.0); MEAN CORPUSCULAR HEMOGLOBIN 28.3 PG (27.0-34.0); MEAN CORPUSCULAR HGB CONC 33.3 % (32.0-36.0); NEUT % 47.8 % (16.0-70.0); PLATELET COUNT 330 TH/MM3 (150-450); RED BLOOD COUNT 3.45 MIL/MM3 (4.00-5.30); RED CELL DISTRIBUTION WIDTH 15.9 % (11.6-17.2); WHITE BLOOD COUNT 6.6 TH/MM3 (4.0-11.0)
[2016-10-13 06:18] LABS: APTT (PATIENT) 27.8 SEC (24.3-30.1); PROTHROMBIN TIME - PATIENT 11.3 SEC (9.8-11.6)
[2016-10-13] MEDS: RESP: ALBUTEROL 2.5 MG/IPRATROPIUM 0.5 MG NEB (SCH) NEB ×4 (07:47→19:46)
--- NOTE | 2016-10-13 08:07 | HHI.PR ---
Subjective History of Present Illness Patient feel better weakness better sodium still low Pulmonary and oncology input noted getting CT Guided biopsy metastatic work up in progress CT Abdomen and pelvis shows multiple hepatic lesion and lumber spine lesion consistant with metastasis ...d/w Patient.d/w SARAH Ferrer all patient question answered to patient satisafication and happy with care provided. Review of Systems Constitutional Constitutional: Fatigue, Weakness Vitals/Results Intake & Output 10/12/16 10/12/16 10/13/16 15:00 23:00 07:00 Intake Total 1345 ml 240 ml Balance 1345 ml 240 ml Intake Oral 730 ml 240 ml IV Total 615 ml # Voids 3 1 # Bowel Movements 0 0 Vital Signs Vital Signs Date Time Temp Pulse Resp B/P Pulse Ox O2 Delivery O2 Flow Rate FiO2 10/13/16 07:49 98 21 10/13/16 04:00 96.2 88 20 145/95 99 10/13/16 00:00 95.0 89 20 127/92 100 10/12/16 20:01 95 10/12/16 20:00 97.1 72 20 131/95 100 10/12/16 19:54 100 21 10/12/16 16:04 18 10/12/16 16:00 97.7 80 16 118/80 98 10/12/16 12:00 98.1 80 18 120/84 96 CBC/BMP: 10/13/16 0510 10/13/16 0510 Lab Results Laboratory Tests Test 10/12/16 10/12/16 10/12/16 10/12/16 09:20 12:50 17:16 20:45 Sodium Level 132 MEQ/L 133 MEQ/L 132 MEQ/L 131 MEQ/L Magnesium Level 1.8 MG/DL Iron Level 39 MCG/DL Total Iron Binding Capacity 263 MCG/DL Percent Iron Saturation 14.8 % Potassium Level 3.8 MEQ/L Chloride Level 97 MEQ/L Carbon Dioxide Level 23.0 MEQ/L Anion Gap 11 MEQ/L Blood Urea Nitrogen 3 MG/DL Creatinine 0.61 MG/DL Estimat Glomerular Filtration 103 ML/MIN Rate Random Glucose 93 MG/DL Calcium Level 8.8 MG/DL Transferrin 177 MG/DL Lactate Dehydrogenase 147 U/L Carcinoembryonic Antigen 6.4 NG/ML Vitamin B12 Level 451 PG/ML Human Chorionic Gonadotropin, 3 MIU/ML Quant Test 10/13/16 10/13/16 01:01 05:10 Sodium Level 126 MEQ/L 128 MEQ/L White Blood Count 6.6 TH/MM3 Red Blood Count 3.45 MIL/MM3 Hemoglobin 9.8 GM/DL Hematocrit 29.3 % Mean Corpuscular Volume 84.8 FL Mean Corpuscular Hemoglobin 28.3 PG Mean Corpuscular Hemoglobin 33.3 % Concent Red Cell Distribution Width 15.9 % Platelet Count 330 TH/MM3 Mean Platelet Volume 9.7 FL Neutrophils (%) (Auto) 47.8 % Lymphocytes (%) (Auto) 42.3 % Monocytes (%) (Auto) 8.0 % Eosinophils (%) (Auto) 0.9 % Basophils (%) (Auto) 1.0 % Neutrophils # (Auto) 3.1 TH/MM3 Lymphocytes # (Auto) 2.8 TH/MM3 Monocytes # (Auto) 0.5 TH/MM3 Eosinophils # (Auto) 0.1 TH/MM3 Basophils # (Auto) 0.1 TH/MM3 CBC Comment DIFF FINAL Differential Comment Prothrombin Time 11.3 SEC Prothromb Time International 1.0 RATIO Ratio Activated Partial 27.8 SEC Thromboplast Time Physical Exam General General Appearance: No Acute Distress, Comfortable Eyes Eye Exam: Pupils Equal, Pupils Reactive, Sclera White, Extraocular Movement Intact Ears & Nose Ears & Nose Exam: Tympanic Membranes Normal, Auditory Canals Normal, Nasal Mucosa [place], Septum Midline Throat Throat Exam: Oral Mucosa [place] & Moist, Oral Pharynx Normal Neck Neck Exam: Neck Supple, Trachea Midline Pulmonary Resp Exam: Clear Bilaterally, Breath Sounds Equal Cardiology CV Exam: Regular, Normal Sinus Rhythm Gastrointestinal/Abdomen GI Exam: Soft, Non-Tender, Bowel Sounds Present Musculoskeletal MS Exam: Joints Intact, Normal Tone Integumentary Skin Exam: Clear, Warm, Dry, Intact, Normal Turgor Extremeties Extremities Exam: No Edema Neurologic Neuro Exam: Alert, Awake, Oriented, Speech Clear, Moving All Extremities, No Focal Deficits Psychiatric Psych Exam: Appropriate Responses PUD Prophylasis PUD Prophylaxis: Protonix Assessment/Plan Assessment/Plan ASSESSMENT AND PLAN 1. This is 51-year-old female who came to the ER diagnosed with generalized weakness, most likely secondary to hyponatremia and hypokalemia. The patient's sodium and potassium have improved. Nephrology, , has seen the patient. Per nephrology on sodium chloride pill with fluid restriction. She has a mass-like consolidative involving the left upper lobe with metastatic involvement of the liver and mediastinal lymph nodes. hepatic lesion is percutaneous accessible for biopsy. pulmonology and oncology input noted metastatic work up in progress CT Abdomen and pelvis shows multiple hepatic lesion and lumber spine lesion consistant with metastasis ...d/w Patient Getting CT Guided biopsy . The patient was advised to quit smoking. She has been smoking since the age of 11. 2. History of smoking. Patient advised to quit. 3. Hypertension. Continue home medication. 4. History of anxiety. Continue home medication. 5. We are going to manage the patient on a daily basis and make recommendations on a daily basis. Discussed Condition with: Patient Uli Serrano MD Oct 13, 2016 08:07
[2016-10-13] MEDS: LORATADINE 10 MG TAB PO SCH (08:58)
[2016-10-13] MEDS: SODIUM CHLORIDE 1 GRAM TAB PO SCH ×3 (08:59→17:08)
[2016-10-13] MEDS: LISINOPRIL 10 MG TAB PO SCH (08:59)
[2016-10-13] MEDS: clonazePAM 1 MG TAB PO SCH ×2 (08:59→20:59)
[2016-10-13] MEDS: SODIUM CHLORIDE 0.9% FLUSH 5 ML FLUSH FLUSH SCH ×2 (09:00→20:59)
[2016-10-13] MEDS: AZITHROMYCIN 250 MG TAB PO SCH (09:00)
[2016-10-13] MEDS: BUDESONIDE-FORMOTEROL 160/4.5 MCG INHALER INH SCH ×2 (09:06→20:59)
[2016-10-13] MEDS ORDERED: LORazepam 1 MG TAB PO ONE (10:45)
[2016-10-13] MEDS ORDERED: GADODIAMIDE PF 287 MG/ML 10 ML VIAL (for RAD MRI) IV ONE (11:55)
--- NOTE | 2016-10-13 14:07 | RADHPO ---
EXAM DATE/TIME: 10/13/2016 11:52 [facility] COMPARISON: No previous studies available for comparison. INDICATIONS : Metastatic disease. Headaches. CONTRAST: 10 cc Omniscan (gadodiamide) IV MEDICAL HISTORY : Hypertension. Lung cancer. SURGICAL HISTORY : Tubal ligation. Hysterectomy. ENCOUNTER: Initial ACUITY: 2 day PAIN SCORE: 4/10 LOCATION: Head. TECHNIQUE: Multiplanar, multisequence MRI of the brain was performed both prior to and following the administrat ion of paramagnetic contrast. FINDINGS: CEREBRUM: The ventricles are normal for age. No evidence of midline shift, mass lesion, hemorrhage or acute in farction. No extraaxial fluid collections are seen. The pituitary gland and suprasellar cistern are normal in configuration. WHITE MATTER: Scattered areas of high focal flair signal abnormalities are seen in the periventricular white matter . There is a white matter plaque within the right frontal subcortical white matter measuring approxim ately 1 cm in size. No significant enhancement. POSTERIOR FOSSA: The cerebellum and brainstem are intact. The 4th ventricle is midline. The cerebellopontine angle is unremarkable. The cerebellar tonsils are normal in position. DIFFUSION IMAGING: No focal areas of restricted diffusion are seen. No evidence of acute infarction. EXTRACRANIAL: The visualized portions of the orbits and paranasal sinuses are unremarkable. POST-CONTRAST: No abnormal areas of parenchymal or dural enhancement. No evidence of blood-brain barrier breakdown. CONCLUSION: 1. 1 cm white matter lesion in the right frontal lobe. This does not enhance with contrast and althou gh somewhat unusual likely related to nonspecific white matter changes. No enhancement to suggest met astatic disease. Close interval followup. 2. Chronic ischemic small vessel vasculopathy. 3. No enhancement to suggest metastatic disease. Chaparro Baig MD on October 13, 2016 at 13:57 Board Certified Radiologist. This report was verified electronically.
[2016-10-13] MEDS: cefTRIAXone INJ 1,000 MG in SODIUM CHLORIDE 0.9% INJ 100 ML IV SCH (17:08)
[2016-10-13 17:20] LABS: CHLORIDE 92 MEQ/L (98-107); POTASSIUM 3.6 MEQ/L (3.5-5.1); SODIUM (NA) 127 MEQ/L (136-145)
[2016-10-13 17:24] LABS: ANION GAP 10 MEQ/L (5-15); BICARBONATE 25.5 MEQ/L (21.0-32.0); BLOOD UREA NITROGEN 3 MG/DL (7-18)
[2016-10-13 17:27] LABS: ALT (GPT) 16 U/L (10-53); AST (GOT) 21 U/L (15-37); GLOMERULAR FILTRATION RATE 91 ML/MIN (>89)
[2016-10-13 17:29] LABS: TOTAL BILIRUBIN ADULT 0.4 MG/DL (0.2-1.0)
[2016-10-13 17:30] LABS: ALKALINE PHOSPHATASE 95 U/L (45-117)
--- NOTE | 2016-10-13 20:10 | HHI.PR ---
Subjective Remarks Weak and SOB . Cannot bring up any Sputum , No fever. CT biopsy of liver pending. On IV antibiotics for MARC infiltrate Objective Vital Signs Date Time Temp Pulse Resp B/P Pulse Ox O2 Delivery O2 Flow Rate FiO2 10/13/16 19:46 100 21 10/13/16 18:36 90 10/13/16 16:00 96.6 80 20 125/90 99 10/13/16 12:00 96.2 84 20 121/93 99 10/13/16 08:00 96.7 93 20 133/92 97 10/13/16 07:49 98 21 10/13/16 04:00 96.2 88 20 145/95 99 10/13/16 00:00 95.0 89 20 127/92 100 I/O 10/12/16 10/12/16 10/12/16 10/13/16 10/13/16 10/13/16 07:00 15:00 23:00 07:00 15:00 23:00 Intake Total 800 ml 1345 ml 240 ml Output Total 1800 ml Balance -1000 ml 1345 ml 240 ml Intake Oral 730 ml 240 ml IV Total 800 ml 615 ml Output Urine Total 1800 ml # Voids 3 3 1 4 # Bowel Movements 0 0 0 Result Diagram: 10/13/16 0510 10/13/16 1705 Objective Remarks This thinly built middle-aged white female is alert, pale and in no acute distress. HEENT: Head normocephalic. Pupils reactive. Tongue is moist. Nasal mucosa erythematous. Throat is injected. NECK: Supple. No lymphadenopathy. Trachea midline. CHEST: Equal movements with distant breath sounds with occasional wheezes, bilaterally prolonged expirations. HEART: The heart sounds are irregular. S1-S2 with no murmur. No S3 gallop. ABDOMEN: Soft, protuberant, no masses, no organomegaly. Liver is just felt below the costal margin. Bowel sounds are active. EXTREMITIES: No edema, no lesions. No calf tenderness. Reflexes are normal. NEUROLOGIC: There are no gross motor deficits. Cranial nerves II-XII grossly intact. RECTAL: Deferred. SKIN: No lesions. Assessment and Plan Assessment and Plan IMPRESSION 1. COPD with chronic bronchitis and acute exacerbation. 2. Left upper lobe lung density, possible obstructive pneumonia with malignancy. 3. Liver lesions, rule out malignancy. Plan 1. O2 prn 2 l 2. Nebs qid, duoneb. 3. CT guided biopsy of liver mass. 4. Cont Solumedrol 40 mg IV q8h. 5. CBC,BMP in am Ronel Sparrow MD Oct 13, 2016 20:10
--- NOTE | 2016-10-13 22:55 | PD.ONC.PN ---
Subjective Subjective Remarks unable to have biopsy today. plans for biopsy in am discussed with Dr. Serrano about possible transfer to [facility] if biopsy not possible [place] abdomen and pelvis reviewed. multiple hepatic lesions MRI brain reviewed. white matter changes--less likely metastatic disease Hyponatremia due to SIADH increase salt tabs to 1gm TID continue free water restriction D/W RN Objective Data Date Time Temp Pulse Resp B/P Pulse Ox O2 Delivery O2 Flow Rate FiO2 10/13/16 20:00 96.9 92 20 146/96 100 10/13/16 19:46 100 21 10/13/16 18:36 90 10/13/16 16:00 96.6 80 20 125/90 99 10/13/16 12:00 96.2 84 20 121/93 99 10/13/16 08:00 96.7 93 20 133/92 97 10/13/16 07:49 98 21 10/13/16 04:00 96.2 88 20 145/95 99 10/13/16 00:00 95.0 89 20 127/92 100 10/13/16 10/13/16 10/13/16 07:00 15:00 23:00 Intake Total 240 ml 195 ml Balance 240 ml 195 ml Result Diagram: 10/13/16 0510 10/13/16 1705 Laboratory Results Laboratory Tests Test 10/13/16 10/13/16 10/13/16 10/13/16 01:01 05:10 09:20 13:00 Sodium Level 126 MEQ/L 128 MEQ/L 128 MEQ/L 128 MEQ/L White Blood Count 6.6 TH/MM3 Red Blood Count 3.45 MIL/MM3 Hemoglobin 9.8 GM/DL Hematocrit 29.3 % Mean Corpuscular Volume 84.8 FL Mean Corpuscular Hemoglobin 28.3 PG Mean Corpuscular Hemoglobin 33.3 % Concent Red Cell Distribution Width 15.9 % Platelet Count 330 TH/MM3 Mean Platelet Volume 9.7 FL Neutrophils (%) (Auto) 47.8 % Lymphocytes (%) (Auto) 42.3 % Monocytes (%) (Auto) 8.0 % Eosinophils (%) (Auto) 0.9 % Basophils (%) (Auto) 1.0 % Neutrophils # (Auto) 3.1 TH/MM3 Lymphocytes # (Auto) 2.8 TH/MM3 Monocytes # (Auto) 0.5 TH/MM3 Eosinophils # (Auto) 0.1 TH/MM3 Basophils # (Auto) 0.1 TH/MM3 CBC Comment DIFF FINAL Differential Comment Prothrombin Time 11.3 SEC Prothromb Time International 1.0 RATIO Ratio Activated Partial 27.8 SEC Thromboplast Time Test 10/13/16 17:05 Sodium Level 127 MEQ/L Potassium Level 3.6 MEQ/L Chloride Level 92 MEQ/L Carbon Dioxide Level 25.5 MEQ/L Anion Gap 10 MEQ/L Blood Urea Nitrogen 3 MG/DL Creatinine 0.68 MG/DL Estimat Glomerular Filtration 91 ML/MIN Rate Random Glucose 112 MG/DL Calcium Level 9.2 MG/DL Total Bilirubin 0.4 MG/DL Aspartate Amino Transf 21 U/L (AST/SGOT) Alanine Aminotransferase 16 U/L (ALT/SGPT) Alkaline Phosphatase 95 U/L Total Protein 7.1 GM/DL Albumin 3.3 GM/DL Imaging Studies Last 24 hours Impressions Brain MRI 10/13/16 0000 Signed Impressions: Service Date/Time: October 11:52 - CONCLUSION: 1. 1 cm white matter lesion in the right frontal lobe. This does not enhance with contrast and although somewhat unusual likely related to nonspecific white matter changes. No enhancement to suggest metastatic disease. Close interval followup. 2. Chronic ischemic small vessel vasculopathy. 3. No enhancement to suggest metastatic disease. Chaparro Baig MD Administered Medications Medications (Trade) Dose Ordered Sig/Ermias Route PRN Reason Start Time Stop Time Status Last Admin Dose Admin IV Flush (NS Flush) 2 ml UNSCH PRN FLUSH FLUSH AFTER USING IV ACCESS 10/11/16 17:30 10/12/16 03:30 IV Flush (NS Flush) 2 ml BID FLUSH 10/11/16 21:00 10/13/16 20:59 Acetaminophen 650 mg 650 mg Q4H PRN PO TEMP > 100.4 10/11/16 17:30 10/12/16 14:32 Dextrose (D5W 1000 ml Inj) 400 ml @ 200 mls/hr BOLUS PRN IV SEE COMMENTS 10/12/16 00:15 10/12/16 03:29 Clonazepam (KlonoPIN) 1 mg BID PO 10/12/16 14:15 10/13/16 20:59 Lisinopril (Prinivil) 10 mg DAILY PO 10/12/16 14:30 10/13/16 08:59 Loratadine 10 mg 10 mg DAILY PO 10/12/16 14:15 10/13/16 08:58 Ceftriaxone Sodium/Sodium Chloride (Rocephin Inj/NS Inj) 100 ml @ 200 mls/hr Q24H IV 10/12/16 18:00 10/13/16 17:08 Azithromycin (Zithromax) 500 mg DAILY PO 10/13/16 09:00 10/13/16 09:00 Budesonide/ Formoterol Fumarate (Symbicort 160-4.5 Inh) 1 puff Q12HR INH 10/12/16 21:00 10/13/16 20:59 Sodium Chloride (Sodium Chloride) 1 gm TID PO 10/13/16 13:00 10/13/16 17:08 Objective Remarks GENERAL: nad, thin cachectic SKIN: Warm and dry. HEAD: Normocephalic. EYES: No scleral icterus. No injection or drainage. NECK: Supple, trachea midline. No JVD or lymphadenopathy. LYMPHATIC: No adenopathy. CARDIOVASCULAR: Regular rate and rhythm without murmurs. RESPIRATORY: Breath sounds equal bilaterally. No accessory muscle use. GASTROINTESTINAL: Abdomen soft, non-tender, nondistended. EXTREMITIES: No cyanosis, or edema. Assessment/Plan Problem List: (1) Hyponatremia Status: Acute (2) Anemia Status: Acute (3) Tobacco abuse Status: Acute (4) Liver lesion Status: Acute (5) Lesion of lung Status: Acute (6) SIADH (syndrome of inappropriate ADH production) Status: Acute Aakash Gama MD Oct 13, 2016 22:55
[2016-10-14] VITALS (9 sets, daily range): BP systolic 120–151; BP diastolic 82–97; PULSE 74–94; RESP 15–18; TEMP 96.3–98.2; O2SAT 92–99
[2016-10-14 05:21] LABS: AUTOMATED NEUTROPHIL # 3.6 TH/MM3 (1.8-7.7); BASOPHIL # 0.1 TH/MM3 (0-0.2); BASOPHIL % 1.4 % (0.0-2.0); EOSINOPHIL # 0.1 TH/MM3 (0-0.4); EOSINOPHIL % 1.4 % (0.0-4.0); HEMO FLAGS DIFF FINAL; LYMPHOCYTE # 3.9 TH/MM3 (1.0-4.8); MEAN CELL VOLUME 82.4 FL (80.0-100.0); MEAN CORPUSCULAR HEMOGLOBIN 28.9 PG (27.0-34.0); MEAN CORPUSCULAR HGB CONC 35.1 % (32.0-36.0); MONO % 7.7 % (0.0-8.0); NEUT % 43.5 % (16.0-70.0); PLATELET COUNT 285 TH/MM3 (150-450); RED BLOOD COUNT 3.04 MIL/MM3 (4.00-5.30); RED CELL DISTRIBUTION WIDTH 16.2 % (11.6-17.2); WHITE BLOOD COUNT 8.4 TH/MM3 (4.0-11.0)
[2016-10-14 06:00] LABS: ALKALINE PHOSPHATASE 84 U/L (45-117); ALT (GPT) 14 U/L (10-53); ANION GAP 10 MEQ/L (5-15); AST (GOT) 21 U/L (15-37); BICARBONATE 22.5 MEQ/L (21.0-32.0); BLOOD UREA NITROGEN 4 MG/DL (7-18); CHLORIDE 91 MEQ/L (98-107); GLOMERULAR FILTRATION RATE 119 ML/MIN (>89); POTASSIUM 3.6 MEQ/L (3.5-5.1); TOTAL BILIRUBIN ADULT 0.2 MG/DL (0.2-1.0)
[2016-10-14] MEDS: GABAPENTIN 100 MG CAP PO SCH ×5 (06:05→20:27)
--- NOTE | 2016-10-14 06:07 | HHI.PR ---
Subjective History of Present Illness Patient feel better weakness better sodium still low Pulmonary and oncology input noted s/p CT Guided biopsy metastatic work up in progress CT Abdomen and pelvis shows multiple hepatic lesion and lumber spine lesion consistant with metastasis MRI Brain discussed with patient ...d/w family at bed side.. all patient question answered to patient satisafication and happy with care provided. Review of Systems Constitutional Constitutional: Fatigue, Weakness Vitals/Results Intake & Output 10/13/16 10/13/16 10/14/16 15:00 23:00 07:00 Intake Total 195 ml Balance 195 ml Intake Oral 80 ml IV Total 115 ml # Voids 4 1 # Bowel Movements 0 0 Vital Signs Vital Signs Date Time Temp Pulse Resp B/P Pulse Ox O2 Delivery O2 Flow Rate FiO2 10/14/16 03:50 97.1 90 15 120/82 96 10/14/16 00:38 94 10/13/16 21:35 97.9 95 15 133/83 99 10/13/16 20:00 96.9 92 20 146/96 100 10/13/16 19:46 100 21 10/13/16 19:22 102 10/13/16 18:36 90 10/13/16 16:00 96.6 80 20 125/90 99 10/13/16 12:00 96.2 84 20 121/93 99 10/13/16 08:00 96.7 93 20 133/92 97 10/13/16 07:49 98 21 CBC/BMP: 10/14/16 0441 10/13/16 1705 Lab Results Laboratory Tests Test 10/13/16 10/13/16 10/13/16 10/14/16 09:20 13:00 17:05 04:41 Sodium Level 128 MEQ/L 128 MEQ/L 127 MEQ/L Potassium Level 3.6 MEQ/L Chloride Level 92 MEQ/L Carbon Dioxide Level 25.5 MEQ/L Anion Gap 10 MEQ/L Blood Urea Nitrogen 3 MG/DL Creatinine 0.68 MG/DL Estimat Glomerular Filtration 91 ML/MIN Rate Random Glucose 112 MG/DL Calcium Level 9.2 MG/DL Total Bilirubin 0.4 MG/DL Aspartate Amino Transf 21 U/L (AST/SGOT) Alanine Aminotransferase 16 U/L (ALT/SGPT) Alkaline Phosphatase 95 U/L Total Protein 7.1 GM/DL Albumin 3.3 GM/DL White Blood Count 8.4 TH/MM3 Red Blood Count 3.04 MIL/MM3 Hemoglobin 8.8 GM/DL Hematocrit 25.0 % Mean Corpuscular Volume 82.4 FL Mean Corpuscular Hemoglobin 28.9 PG Mean Corpuscular Hemoglobin 35.1 % Concent Red Cell Distribution Width 16.2 % Platelet Count 285 TH/MM3 Mean Platelet Volume 9.3 FL Neutrophils (%) (Auto) 43.5 % Lymphocytes (%) (Auto) 46.0 % Monocytes (%) (Auto) 7.7 % Eosinophils (%) (Auto) 1.4 % Basophils (%) (Auto) 1.4 % Neutrophils # (Auto) 3.6 TH/MM3 Lymphocytes # (Auto) 3.9 TH/MM3 Monocytes # (Auto) 0.6 TH/MM3 Eosinophils # (Auto) 0.1 TH/MM3 Basophils # (Auto) 0.1 TH/MM3 CBC Comment DIFF FINAL Differential Comment Physical Exam General General Appearance: No Acute Distress, Comfortable Eyes Eye Exam: Pupils Equal, Pupils Reactive, Sclera White, Extraocular Movement Intact Ears & Nose Ears & Nose Exam: Tympanic Membranes Normal, Auditory Canals Normal, Nasal Mucosa [place], Septum Midline Throat Throat Exam: Oral Mucosa [place] & Moist, Oral Pharynx Normal Neck Neck Exam: Neck Supple, Trachea Midline Pulmonary Resp Exam: Clear Bilaterally, Breath Sounds Equal Cardiology CV Exam: Regular, Normal Sinus Rhythm Gastrointestinal/Abdomen GI Exam: Soft, Non-Tender, Bowel Sounds Present Musculoskeletal MS Exam: Joints Intact, Normal Tone Integumentary Skin Exam: Clear, Warm, Dry, Intact, Normal Turgor Extremeties Extremities Exam: No Edema Neurologic Neuro Exam: Alert, Awake, Oriented, Speech Clear, Moving All Extremities, No Focal Deficits Psychiatric Psych Exam: Appropriate Responses PUD Prophylasis PUD Prophylaxis: Protonix Assessment/Plan Assessment/Plan ASSESSMENT AND PLAN 1. This is 51-year-old female who came to the ER diagnosed with generalized weakness, most likely secondary to hyponatremia and hypokalemia. The patient's sodium and potassium have improved. Nephrology, , has seen the patient. Per nephrology on sodium chloride pill with fluid restriction. She has a mass-like consolidative involving the left upper lobe with metastatic involvement of the liver and mediastinal lymph nodes. hepatic lesion is percutaneous accessible for biopsy. pulmonology and oncology input noted metastatic work up in progress CT Abdomen and pelvis shows multiple hepatic lesion and lumber spine lesion consistant with metastasis ...d/w Patient s/p CT Guided biopsy.. MRI of Brain discussed with patient. . The patient was advised to quit smoking. She has been smoking since the age of 11. 2. History of smoking. Patient advised to quit. 3. Hypertension. Continue home medication. 4. History of anxiety. Continue home medication. 5. We are going to manage the patient on a daily basis and make recommendations on a daily basis. Discussed Condition with: Patient, Parent Uli Serrano MD Oct 14, 2016 06:07
[2016-10-14 06:08] LABS: SODIUM (NA) 123 MEQ/L (136-145)
[2016-10-14] MEDS: RESP: ALBUTEROL 2.5 MG/IPRATROPIUM 0.5 MG NEB (SCH) NEB ×4 (08:36→21:04)
[2016-10-14] MEDS: SODIUM CHLORIDE 0.9% FLUSH 5 ML FLUSH FLUSH SCH ×2 (09:00→20:27)
[2016-10-14] MEDS: LORATADINE 10 MG TAB PO SCH (09:00)
[2016-10-14] MEDS: SODIUM CHLORIDE 1 GRAM TAB PO SCH ×5 (09:00→21:30)
[2016-10-14] MEDS: clonazePAM 1 MG TAB PO SCH ×2 (09:00→21:00)
[2016-10-14] MEDS: BUDESONIDE-FORMOTEROL 160/4.5 MCG INHALER INH SCH ×2 (09:00→21:00)
[2016-10-14] MEDS: AZITHROMYCIN 250 MG TAB PO SCH (09:00)
[2016-10-14] MEDS: LISINOPRIL 10 MG TAB PO SCH (09:00)
[2016-10-14] MEDS ORDERED: fentaNYL CITRATE 250 MCG/5 ML AMP ONE (09:15)
[2016-10-14] MEDS ORDERED: MIDAZOLAM HCL 5 MG/5 ML VIAL ONE (09:15)
[2016-10-14] MEDS ORDERED: LIDOCAINE 1%/EPINEPHrine 1:100,000 SOLN 20 ML VIAL ONE (09:16)
[2016-10-14] MEDS: ACETAMINOPHEN 325 MG TAB PO PRN ×2 (13:07→18:42)
--- NOTE | 2016-10-14 14:20 | RADRPT ---
EXAM DATE/TIME: 10/14/2016 10:03 [place] COMPARISON: No previous studies available for comparison. INDICATIONS : Liver lesions, history of lung mass. SEDATION TIME: 30 minutes BIOPSY SITE: Right liver MEDICATION(S): 1.) 1 mg midazolam (Versed) IV 2.) 100 mcg fentanyl (Sublimaze) IV DEVICE(S): 1.) 18 gauge Oneil blunt needle 2.) 20 gauge Temno core biopsy needle MEDICAL HISTORY : Hypertension. Chronic obstructive pulmonary disease. Gastroesophageal reflux disease. SURGICAL HISTORY : None. ENCOUNTER: Initial ACUITY: 1 day PAIN SCORE: 0/10 LOCATION: Right liver A total of two core specimen(s) were obtained and sent to the laboratory for pathologic evaluation. PROCEDURE: 1. CT guided liver biopsy. 2. Conscious sedation with continuous EKG and oximetry monitoring. Prior to the procedure informed consent was obtained. Any appropriate prior imaging studies were rev iewed. The site was prepped in a sterile fashion. Full sterile technique was used, including cap, mask, familia rile gloves and gown and a large sterile sheet. Hand hygiene and 2% chlorhexidine and/or betadine/al cohol prep was utilized per protocol for cutaneous antisepsis. The skin and subcutaneous tissues wer e infiltrated with local anesthetic solution. 18 gauge blunt needle was placed down to the lesion in the right lobe of the liver. 2 cores were obt ained. Slides were submitted. Follow-up CT scan reveals no hemorrhage. The patient tolerated the procedure well and there were no complications. The patient was returned to the Radiology Outpatient Unit in stable condition. CONCLUSION: Uncomplicated CT guided biopsy of the mass right lobe of the liver. Gurwidner Hernandez MD FACR on October 14, 2016 at 14:17 Board Certified Radiologist. This report was verified electronically.
[2016-10-14] MEDS: cefTRIAXone INJ 1,000 MG in SODIUM CHLORIDE 0.9% INJ 100 ML IV SCH (17:59)
--- NOTE | 2016-10-14 18:43 | HHI.PR ---
Subjective Remarks Feels better , No fever. CT biopsy of liver done today .On IV antibiotics for MARC infiltrate. Off o2 Objective Vital Signs Date Time Temp Pulse Resp B/P Pulse Ox O2 Delivery O2 Flow Rate FiO2 10/14/16 16:00 87 10/14/16 16:00 96.3 78 16 139/87 96 10/14/16 12:05 74 16 136/86 96 10/14/16 11:35 78 18 147/97 95 10/14/16 11:05 84 18 144/90 92 10/14/16 10:48 97.6 82 18 130/86 96 10/14/16 08:00 97.2 84 16 151/86 99 10/14/16 03:50 97.1 90 15 120/82 96 10/14/16 00:38 94 10/13/16 21:35 97.9 95 15 133/83 99 10/13/16 20:00 96.9 92 20 146/96 100 10/13/16 19:46 100 21 10/13/16 19:22 102 I/O 10/13/16 10/13/16 10/13/16 10/14/16 10/14/16 10/14/16 06:59 14:59 22:59 06:59 14:59 22:59 Intake Total 855 ml 195 ml 0 ml 480 ml Output Total 0 ml 2 ml Balance 855 ml 195 ml 0 ml 478 ml Intake Oral 240 ml 80 ml 0 ml 480 ml IV Total 615 ml 115 ml Output Urine Total 0 ml 2 ml # Voids 1 4 1 # Bowel Movements 0 0 0 1 Result Diagram: 10/14/1644010/14/16440 Objective Remarks This thinly built middle-aged white female is alert, pale and in no acute distress. HEENT: Head normocephalic. Pupils reactive. Tongue is moist. Nasal mucosa erythematous. Throat is clear NECK: Supple. No lymphadenopathy. Trachea midline. CHEST: Equal movements with distant breath sounds with occasional wheezes, bilaterally prolonged expirations. HEART: The heart sounds are irregular. S1-S2 with no murmur. No S3 gallop. ABDOMEN: Soft, protuberant, no masses, no organomegaly. Liver is just felt below the costal margin. Bowel sounds are active. EXTREMITIES: No edema, no lesions. No calf tenderness. Reflexes are normal. NEUROLOGIC: There are no gross motor deficits. RECTAL: Deferred. SKIN: No lesions. Assessment and Plan Assessment and Plan IMPRESSION 1. COPD with chronic bronchitis and acute exacerbation. 2. Left upper lobe lung density, possible obstructive pneumonia with malignancy. 3. Liver lesions, rule out malignancy. Plan 1. O2 prn 2 l 2. Nebs qid, duoneb. 3. CXR in am 4. D/C Solumedrol and add Prednisone 20 mg daily. 5. CBC,BMP in am Ronel Sparrow MD Oct 14, 2016 18:43
--- NOTE | 2016-10-14 21:17 | PD.ONC.PN ---
Subjective Subjective Remarks awake and alert no complaints had liver biopsy today and pathology results pending sodium trending down patient drinking water increase sodium tab to to 2gm tid Free water restriction further recs after biopsy results available Objective Data Date Time Temp Pulse Resp B/P Pulse Ox O2 Delivery O2 Flow Rate FiO2 10/14/16 18:56 Room Air 10/14/16 16:00 87 10/14/16 16:00 96.3 78 16 139/87 96 10/14/16 12:05 74 16 136/86 96 10/14/16 11:35 78 18 147/97 95 10/14/16 11:05 84 18 144/90 92 10/14/16 10:48 97.6 82 18 130/86 96 10/14/16 08:00 97.2 84 16 151/86 99 10/14/16 03:50 97.1 90 15 120/82 96 10/14/16 00:38 94 10/13/16 21:35 97.9 95 15 133/83 99 10/14/16 10/14/16 10/14/16 07:00 15:00 23:00 Intake Total 480 ml Output Total 2 ml Balance 478 ml Result Diagram: 10/14/16 0441 10/14/16 0441 Laboratory Results Laboratory Tests Test 10/14/16 04:41 White Blood Count 8.4 TH/MM3 Red Blood Count 3.04 MIL/MM3 Hemoglobin 8.8 GM/DL Hematocrit 25.0 % Mean Corpuscular Volume 82.4 FL Mean Corpuscular Hemoglobin 28.9 PG Mean Corpuscular Hemoglobin 35.1 % Concent Red Cell Distribution Width 16.2 % Platelet Count 285 TH/MM3 Mean Platelet Volume 9.3 FL Neutrophils (%) (Auto) 43.5 % Lymphocytes (%) (Auto) 46.0 % Monocytes (%) (Auto) 7.7 % Eosinophils (%) (Auto) 1.4 % Basophils (%) (Auto) 1.4 % Neutrophils # (Auto) 3.6 TH/MM3 Lymphocytes # (Auto) 3.9 TH/MM3 Monocytes # (Auto) 0.6 TH/MM3 Eosinophils # (Auto) 0.1 TH/MM3 Basophils # (Auto) 0.1 TH/MM3 CBC Comment DIFF FINAL Differential Comment Sodium Level 123 MEQ/L Potassium Level 3.6 MEQ/L Chloride Level 91 MEQ/L Carbon Dioxide Level 22.5 MEQ/L Anion Gap 10 MEQ/L Blood Urea Nitrogen 4 MG/DL Creatinine 0.54 MG/DL Estimat Glomerular Filtration 119 ML/MIN Rate Random Glucose 85 MG/DL Calcium Level 8.5 MG/DL Total Bilirubin 0.2 MG/DL Aspartate Amino Transf 21 U/L (AST/SGOT) Alanine Aminotransferase 14 U/L (ALT/SGPT) Alkaline Phosphatase 84 U/L Total Protein 5.9 GM/DL Albumin 3.0 GM/DL Imaging Studies Last 24 hours Impressions Liver Biopsy CT 10/14/16 0000 Signed Impressions: Service Date/Time: Friday, October 14, 2016 10:03 - CONCLUSION: Uncomplicated CT guided biopsy of the mass right lobe of the liver. Gurwinder Hernandez MD FACR Administered Medications Medications (Trade) Dose Ordered Sig/Ermias Route PRN Reason Start Time Stop Time Status Last Admin Dose Admin IV Flush (NS Flush) 2 ml UNSCH PRN FLUSH FLUSH AFTER USING IV ACCESS 10/11/16 17:30 10/12/16 03:30 IV Flush (NS Flush) 2 ml BID FLUSH 10/11/16 21:00 10/14/16 20:27 Acetaminophen 650 mg 650 mg Q4H PRN PO TEMP > 100.4 10/11/16 17:30 10/14/16 18:42 Dextrose (D5W 1000 ml Inj) 400 ml @ 200 mls/hr BOLUS PRN IV SEE COMMENTS 10/12/16 00:15 10/12/16 03:29 Clonazepam (KlonoPIN) 1 mg BID PO 10/12/16 14:15 10/13/16 20:59 Lisinopril (Prinivil) 10 mg DAILY PO 10/12/16 14:30 10/13/16 08:59 Loratadine 10 mg 10 mg DAILY PO 10/12/16 14:15 10/13/16 08:58 Ceftriaxone Sodium/Sodium Chloride (Rocephin Inj/NS Inj) 100 ml @ 200 mls/hr Q24H IV 10/12/16 18:00 10/14/16 17:59 Azithromycin (Zithromax) 500 mg DAILY PO 10/13/16 09:00 10/13/16 09:00 Budesonide/ Formoterol Fumarate (Symbicort 160-4.5 Inh) 1 puff Q12HR INH 10/12/16 21:00 10/13/16 20:59 Sodium Chloride (Sodium Chloride) 1 gm QID PO 10/14/16 18:00 10/14/16 20:27 Objective Remarks GENERAL: nad SKIN: Warm and dry. HEAD: Normocephalic. EYES: No scleral icterus. No injection or drainage. NECK: Supple, trachea midline. No JVD or lymphadenopathy. LYMPHATIC: No adenopathy. CARDIOVASCULAR: Regular rate and rhythm without murmurs. RESPIRATORY: Breath sounds equal bilaterally. No accessory muscle use. GASTROINTESTINAL: Abdomen soft, non-tender, nondistended. EXTREMITIES: No cyanosis, or edema. Assessment/Plan Problem List: (1) Hyponatremia Status: Acute (2) Anemia Status: Acute (3) Tobacco abuse Status: Acute (4) Liver lesion Status: Acute (5) Lesion of lung Status: Acute (6) SIADH (syndrome of inappropriate ADH production) Status: Acute Aakash Gama MD Oct 14, 2016 21:17
[2016-10-15] VITALS: BP 143/91; PULSE 85; RESP 16; TEMP 97.8; O2SAT 98
[2016-10-15] MEDS: GABAPENTIN 100 MG CAP PO SCH ×5 (05:24→21:03)
[2016-10-15 06:28] LABS: AUTOMATED NEUTROPHIL # 3.3 TH/MM3 (1.8-7.7); BASOPHIL # 0.1 TH/MM3 (0-0.2); BASOPHIL % 1.4 % (0.0-2.0); EOSINOPHIL # 0.2 TH/MM3 (0-0.4); EOSINOPHIL % 2.8 % (0.0-4.0); HEMATOCRIT 26.4 % (35.0-46.0); HEMO FLAGS DIFF FINAL; LYMPH % 41.5 % (9.0-44.0); LYMPHOCYTE # 3.1 TH/MM3 (1.0-4.8); MEAN CELL VOLUME 83.9 FL (80.0-100.0); MEAN CORPUSCULAR HEMOGLOBIN 28.8 PG (27.0-34.0); MEAN CORPUSCULAR HGB CONC 34.3 % (32.0-36.0); MONO % 10.7 % (0.0-8.0); NEUT % 43.6 % (16.0-70.0); PLATELET COUNT 263 TH/MM3 (150-450); RED BLOOD COUNT 3.15 MIL/MM3 (4.00-5.30); RED CELL DISTRIBUTION WIDTH 15.8 % (11.6-17.2); WHITE BLOOD COUNT 7.5 TH/MM3 (4.0-11.0)
--- NOTE | 2016-10-15 07:03 | HHI.PR ---
Subjective History of Present Illness Patient feel better weakness better sodium still low Pulmonary and oncology input noted s/p CT Guided biopsy metastatic work up in progress CT Abdomen and pelvis shows multiple hepatic lesion and lumber spine lesion consistant with metastasis MRI Brain discussed with patient no tan. ...d/w RN [place]... Low sodium 120 nephrology to address. Review of Systems Constitutional Constitutional: Fatigue, Weakness Vitals/Results Intake & Output 10/14/16 10/14/16 10/15/16 15:00 23:00 07:00 Intake Total 480 ml 720 ml 240 ml Output Total 2 ml Balance 478 ml 720 ml 240 ml Intake Oral 480 ml 720 ml 240 ml Output Urine Total 2 ml # Voids 1 1 # Bowel Movements 1 Vital Signs Vital Signs Date Time Temp Pulse Resp B/P Pulse Ox O2 Delivery O2 Flow Rate FiO2 10/15/16 00:00 97.8 85 16 143/91 98 10/14/16 20:00 98.2 93 16 149/91 99 10/14/16 18:56 Room Air 10/14/16 16:00 87 10/14/16 16:00 96.3 78 16 139/87 96 10/14/16 12:05 74 16 136/86 96 10/14/16 11:35 78 18 147/97 95 10/14/16 11:05 84 18 144/90 92 10/14/16 10:48 97.6 82 18 130/86 96 10/14/16 08:00 97.2 84 16 151/86 99 CBC/BMP: 10/15/16 0508 10/14/16 0441 Lab Results Laboratory Tests Test 10/15/16 05:08 White Blood Count 7.5 TH/MM3 Red Blood Count 3.15 MIL/MM3 Hemoglobin 9.0 GM/DL Hematocrit 26.4 % Mean Corpuscular Volume 83.9 FL Mean Corpuscular Hemoglobin 28.8 PG Mean Corpuscular Hemoglobin 34.3 % Concent Red Cell Distribution Width 15.8 % Platelet Count 263 TH/MM3 Mean Platelet Volume 9.5 FL Neutrophils (%) (Auto) 43.6 % Lymphocytes (%) (Auto) 41.5 % Monocytes (%) (Auto) 10.7 % Eosinophils (%) (Auto) 2.8 % Basophils (%) (Auto) 1.4 % Neutrophils # (Auto) 3.3 TH/MM3 Lymphocytes # (Auto) 3.1 TH/MM3 Monocytes # (Auto) 0.8 TH/MM3 Eosinophils # (Auto) 0.2 TH/MM3 Basophils # (Auto) 0.1 TH/MM3 CBC Comment DIFF FINAL Differential Comment Physical Exam General General Appearance: No Acute Distress, Comfortable Eyes Eye Exam: Pupils Equal, Pupils Reactive, Sclera White, Extraocular Movement Intact Ears & Nose Ears & Nose Exam: Tympanic Membranes Normal, Auditory Canals Normal, Nasal Mucosa [place], Septum Midline Throat Throat Exam: Oral Mucosa [place] & Moist, Oral Pharynx Normal Neck Neck Exam: Neck Supple, Trachea Midline Pulmonary Resp Exam: Clear Bilaterally, Breath Sounds Equal Cardiology CV Exam: Regular, Normal Sinus Rhythm Gastrointestinal/Abdomen GI Exam: Soft, Non-Tender, Bowel Sounds Present Musculoskeletal MS Exam: Joints Intact, Normal Tone Integumentary Skin Exam: Clear, Warm, Dry, Intact, Normal Turgor Extremeties Extremities Exam: No Edema Neurologic Neuro Exam: Alert, Awake, Oriented, Speech Clear, Moving All Extremities, No Focal Deficits Psychiatric Psych Exam: Appropriate Responses PUD Prophylasis PUD Prophylaxis: Protonix Assessment/Plan Assessment/Plan ASSESSMENT AND PLAN 1. This is 51-year-old female who came to the ER diagnosed with generalized weakness, most likely secondary to hyponatremia and hypokalemia. The patient's sodium and potassium have improved. Nephrology, , has seen the patient. Per nephrology on sodium chloride pill with fluid restriction. She has a mass-like consolidative involving the left upper lobe with metastatic involvement of the liver and mediastinal lymph nodes. hepatic lesion is percutaneous accessible for biopsy. pulmonology and oncology input noted metastatic work up in progress CT Abdomen and pelvis shows multiple hepatic lesion and lumber spine lesion consistant with metastasis ...d/w Patient s/p CT Guided biopsy.. MRI of Brain discussed with patient. no metasis. The patient was advised to quit smoking. She has been smoking since the age of 11. 2. History of smoking. Patient advised to quit. 3. Hypertension. Continue home medication. 4. History of anxiety. Continue home medication. 5. We are going to manage the patient on a daily basis and make recommendations on a daily basis. Uli Serrano MD Oct 15, 2016 07:03 Uli Serrano MD Oct 15, 2016 07:03
[2016-10-15 07:14] LABS: ALKALINE PHOSPHATASE 88 U/L (45-117); ALT (GPT) 13 U/L (10-53); ANION GAP 11 MEQ/L (5-15); AST (GOT) 14 U/L (15-37); BICARBONATE 25.6 MEQ/L (21.0-32.0); BLOOD UREA NITROGEN 3 MG/DL (7-18); CHLORIDE 83 MEQ/L (98-107); GLOMERULAR FILTRATION RATE 139 ML/MIN (>89); POTASSIUM 3.6 MEQ/L (3.5-5.1); TOTAL BILIRUBIN ADULT 0.3 MG/DL (0.2-1.0)
[2016-10-15 07:35] LABS: SODIUM (NA) 120 MEQ/L (136-145)
[2016-10-15 08:00] VITALS: BP 159/100; PULSE 83; RESP 16; TEMP 98.2; O2SAT 98
[2016-10-15] MEDS: LORATADINE 10 MG TAB PO SCH (08:28)
[2016-10-15] MEDS: AZITHROMYCIN 250 MG TAB PO SCH (08:28)
[2016-10-15] MEDS: clonazePAM 1 MG TAB PO SCH ×2 (08:28→21:03)
[2016-10-15] MEDS: SODIUM CHLORIDE 1 GRAM TAB PO SCH ×3 (08:28→18:10)
[2016-10-15] MEDS: predniSONE 20 MG TAB PO SCH (08:28)
[2016-10-15] MEDS: LISINOPRIL 10 MG TAB PO SCH (08:28)
[2016-10-15] MEDS: BUDESONIDE-FORMOTEROL 160/4.5 MCG INHALER INH SCH ×2 (08:29→21:00)
[2016-10-15] MEDS: SODIUM CHLORIDE 0.9% FLUSH 5 ML FLUSH FLUSH SCH ×2 (08:29→21:04)
[2016-10-15] MEDS: ACETAMINOPHEN 325 MG TAB PO PRN ×2 (08:31→21:03)
[2016-10-15] MEDS: RESP: ALBUTEROL 2.5 MG/IPRATROPIUM 0.5 MG NEB (SCH) NEB ×4 (09:05→20:22)
[2016-10-15 10:29] VITALS: PULSE 78
[2016-10-15 12:00] VITALS: BP 136/81; PULSE 86; RESP 16; TEMP 96.1; O2SAT 97
[2016-10-15] MEDS ORDERED: TOLVAPTAN 15 MG TAB PO STA (14:39)
[2016-10-15] MEDS: POTASSIUM CHLORIDE 10 MEQ CONTROLLED RELEASE TAB PO SCH (15:34)
[2016-10-15 16:16] VITALS: BP 123/70; PULSE 109; RESP 16; TEMP 96.1; O2SAT 99
--- NOTE | 2016-10-15 16:33 | HHI.NPPN ---
Subjective History of Present Illness Patient with a history of chronic hyponatremia and tobacco usage with CT scan indicating probable malignancy but biopsy currently pending as far as results are concerned. Patient's serum sodium level initially improved with salt pills however deteriorating again and I was recalled. Patient himself has no complaints. by bedside. Review of Systems General Constitutional: Fatigue Objective Data Data 10/14/16 10/15/16 19:00 07:00 Intake Total 480 ml 960 ml Output Total 2 ml Balance 478 ml 960 ml Intake Oral 480 ml 960 ml Output Urine Total 2 ml # Voids 2 # Bowel Movements 1 Vital Signs Date Time Temp Pulse Resp B/P Pulse Ox O2 Delivery O2 Flow Rate FiO2 10/15/16 12:00 96.1 86 16 136/81 97 10/15/16 10:29 78 10/15/16 09:00 Room Air 10/15/16 08:00 98.2 83 16 159/100 98 10/15/16 00:00 97.8 85 16 143/91 98 10/14/16 20:00 98.2 93 16 149/91 99 10/14/16 18:56 Room Air -: 10/15/16 0508 10/15/16 0508 Physical Exam General Appearance: No Acute Distress, Comfortable Eyes Eye Exam: Pupils Equal, Pupils Reactive, Sclera White Ears & Nose Ears & Nose Exam: Nasal Mucosa [place], Septum Midline Throat Throat Exam: Oral Mucosa [place] & Moist Pulmonary Resp Exam: Clear Bilaterally, Breath Sounds Equal Cardiology CV Exam: Regular, Normal Sinus Rhythm Gastrointestinal/Abdomen GI Exam: Soft, Non-Tender, Bowel Sounds Present Musculoskeletal MS Exam: Joints Intact, Normal Tone Integumentary Skin Exam: Clear, Warm, Dry, Intact, Normal Turgor Extremeties Extremities Exam: No Edema Neurologic Neuro Exam: Alert, Awake, Oriented, Speech Clear Psychiatric Psych Exam: Appropriate Responses Assessment/Plan Discussed Condition With: Patient, Spouse Problem List: (1) Hyponatremia Plan: In view of deteriorating sodium level again we'll give 1 dose of [place] today. Add furosemide to salt pills to try and stabilize a serum sodium level. Goal will be to maintain the sodium level 130 of greater if possible. If the patient does have small cell carcinoma definitive treatment of SIADH is treatment of the underlying cause. We'll defer to oncology in this regard. Repeat BMP a.m. I will also discontinue the salt restricted diet. Patient was advised of the need to improve her dietary protein intake as poor nutritional intake could also aggravate her hyponatremia. Rafiq Rai MD Oct 15, 2016 16:33
[2016-10-15] MEDS: cefTRIAXone INJ 1,000 MG in SODIUM CHLORIDE 0.9% INJ 100 ML IV SCH (18:09)
[2016-10-15 20:00] VITALS: BP 138/77; PULSE 107; RESP 16; TEMP 96.9; O2SAT 100
[2016-10-16] VITALS (7 sets, daily range): BP systolic 103–139; BP diastolic 73–88; PULSE 92–117; RESP 16–20; TEMP 95.5–98.2; O2SAT 93–100
[2016-10-16] MEDS: GABAPENTIN 100 MG CAP PO SCH ×5 (05:04→21:16)
[2016-10-16 06:00] LABS: AUTOMATED NEUTROPHIL # 4.4 TH/MM3 (1.8-7.7); BASOPHIL # 0.1 TH/MM3 (0-0.2); BASOPHIL % 1.7 % (0.0-2.0); EOSINOPHIL % 0.5 % (0.0-4.0); HEMATOCRIT 27.9 % (35.0-46.0); HEMO FLAGS DIFF FINAL; LYMPH % 33.8 % (9.0-44.0); LYMPHOCYTE # 2.8 TH/MM3 (1.0-4.8); MEAN CORPUSCULAR HGB CONC 34.6 % (32.0-36.0); MONO % 10.6 % (0.0-8.0); NEUT % 53.4 % (16.0-70.0); PLATELET COUNT 266 TH/MM3 (150-450); RED BLOOD COUNT 3.32 MIL/MM3 (4.00-5.30); WHITE BLOOD COUNT 8.2 TH/MM3 (4.0-11.0)
[2016-10-16 06:26] LABS: ALKALINE PHOSPHATASE 95 U/L (45-117); ALT (GPT) 15 U/L (10-53); ANION GAP 12 MEQ/L (5-15); AST (GOT) 16 U/L (15-37); BICARBONATE 23.2 MEQ/L (21.0-32.0); BLOOD UREA NITROGEN 3 MG/DL (7-18); CHLORIDE 91 MEQ/L (98-107); GLOMERULAR FILTRATION RATE 121 ML/MIN (>89); POTASSIUM 3.7 MEQ/L (3.5-5.1); SODIUM (NA) 126 MEQ/L (136-145); TOTAL BILIRUBIN ADULT 0.2 MG/DL (0.2-1.0)
[2016-10-16] MEDS: RESP: ALBUTEROL 2.5 MG/IPRATROPIUM 0.5 MG NEB (SCH) NEB ×4 (08:00→19:42)
[2016-10-16] MEDS: SODIUM CHLORIDE 1 GRAM TAB PO SCH ×3 (08:29→16:52)
[2016-10-16] MEDS: LORATADINE 10 MG TAB PO SCH (08:30)
[2016-10-16] MEDS: clonazePAM 1 MG TAB PO SCH ×2 (08:30→21:16)
[2016-10-16] MEDS: FUROSEMIDE 20 MG TAB PO SCH ×2 (08:30→16:52)
[2016-10-16] MEDS: predniSONE 20 MG TAB PO SCH (08:30)
[2016-10-16] MEDS: LISINOPRIL 10 MG TAB PO SCH (08:30)
[2016-10-16] MEDS: AZITHROMYCIN 250 MG TAB PO SCH (08:30)
[2016-10-16] MEDS: POTASSIUM CHLORIDE 10 MEQ CONTROLLED RELEASE TAB PO SCH (08:30)
[2016-10-16] MEDS: BUDESONIDE-FORMOTEROL 160/4.5 MCG INHALER INH SCH ×2 (09:00→21:00)
--- NOTE | 2016-10-16 09:31 | HHI.PR ---
Subjective History of Present Illness Patient feel better weakness better sodium still low 126 Nephrology managing.. Pulmonary and oncology input noted s/p CT Guided biopsy report pending.. metastatic work up noted.. CT Abdomen and pelvis shows multiple hepatic lesion and lumber spine lesion consistant with metastasis MRI Brain discussed with patient no metastasis Review of Systems Constitutional Constitutional: Fatigue, Weakness Vitals/Results Intake & Output 10/15/16 10/15/16 10/16/16 15:00 23:00 07:00 Intake Total 690 ml 1060 ml 240 ml Balance 690 ml 1060 ml 240 ml Intake Oral 690 ml 960 ml 240 ml IV Total 100 ml # Voids 3 2 2 Vital Signs Vital Signs Date Time Temp Pulse Resp B/P Pulse Ox O2 Delivery O2 Flow Rate FiO2 10/16/16 04:00 98.2 99 20 118/80 95 10/16/16 00:00 97.5 101 16 124/76 97 10/15/16 20:00 96.9 107 16 138/77 100 10/15/16 16:16 96.1 109 16 123/70 99 10/15/16 12:00 96.1 86 16 136/81 97 10/15/16 10:29 78 CBC/BMP: 10/16/16 0500 10/16/16 0500 Lab Results Laboratory Tests Test 10/16/16 05:00 White Blood Count 8.2 TH/MM3 Red Blood Count 3.32 MIL/MM3 Hemoglobin 9.7 GM/DL Hematocrit 27.9 % Mean Corpuscular Volume 84.0 FL Mean Corpuscular Hemoglobin 29.0 PG Mean Corpuscular Hemoglobin 34.6 % Concent Red Cell Distribution Width 16.0 % Platelet Count 266 TH/MM3 Mean Platelet Volume 9.6 FL Neutrophils (%) (Auto) 53.4 % Lymphocytes (%) (Auto) 33.8 % Monocytes (%) (Auto) 10.6 % Eosinophils (%) (Auto) 0.5 % Basophils (%) (Auto) 1.7 % Neutrophils # (Auto) 4.4 TH/MM3 Lymphocytes # (Auto) 2.8 TH/MM3 Monocytes # (Auto) 0.9 TH/MM3 Eosinophils # (Auto) 0.0 TH/MM3 Basophils # (Auto) 0.1 TH/MM3 CBC Comment DIFF FINAL Differential Comment Sodium Level 126 MEQ/L Potassium Level 3.7 MEQ/L Chloride Level 91 MEQ/L Carbon Dioxide Level 23.2 MEQ/L Anion Gap 12 MEQ/L Blood Urea Nitrogen 3 MG/DL Creatinine 0.53 MG/DL Estimat Glomerular Filtration 121 ML/MIN Rate Random Glucose 92 MG/DL Calcium Level 8.7 MG/DL Total Bilirubin 0.2 MG/DL Aspartate Amino Transf 16 U/L (AST/SGOT) Alanine Aminotransferase 15 U/L (ALT/SGPT) Alkaline Phosphatase 95 U/L Total Protein 6.9 GM/DL Albumin 3.2 GM/DL Physical Exam General General Appearance: No Acute Distress, Comfortable Eyes Eye Exam: Pupils Equal, Pupils Reactive, Sclera White Ears & Nose Ears & Nose Exam: Nasal Mucosa [place], Septum Midline Throat Throat Exam: Oral Mucosa [place] & Moist Pulmonary Resp Exam: Clear Bilaterally, Breath Sounds Equal Cardiology CV Exam: Regular, Normal Sinus Rhythm Gastrointestinal/Abdomen GI Exam: Soft, Non-Tender, Bowel Sounds Present Musculoskeletal MS Exam: Joints Intact, Normal Tone Integumentary Skin Exam: Clear, Warm, Dry, Intact, Normal Turgor Extremeties Extremities Exam: No Edema Neurologic Neuro Exam: Alert, Awake, Oriented, Speech Clear Psychiatric Psych Exam: Appropriate Responses Assessment/Plan Assessment/Plan ASSESSMENT AND PLAN 1. This is 51-year-old female who came to the ER diagnosed with generalized weakness, most likely secondary to hyponatremia and hypokalemia. The patient's sodium and potassium have improved. Nephrology, , has seen the patient. Per nephrology on sodium chloride pill with fluid restriction. 2. Mass-like consolidative involving the left upper lobe with metastatic involvement of the liver and mediastinal lymph nodes. hepatic lesion is percutaneous accessible for biopsy. pulmonology and oncology input noted metastatic work up in progress CT Abdomen and pelvis shows multiple hepatic lesion and lumber spine lesion consistant with metastasis ...d/w Patient S/P CT Guided biopsy. Report pending... MRI of Brain discussed with patient. no metastasis. The patient was advised to quit smoking. She has been smoking since the age of 11. 3. History of smoking. Patient advised to quit. 4. Hypertension. Continue home medication. 5. History of anxiety. Continue home medication. 6. We are going to manage the patient on a daily basis and make recommendations on a daily basis. Discussed Condition with: Patient Uli Serrano MD Oct 16, 2016 09:31
[2016-10-16] MEDS: cefTRIAXone INJ 1,000 MG in SODIUM CHLORIDE 0.9% INJ 100 ML IV SCH (16:56)
[2016-10-16] MEDS: SODIUM CHLORIDE 0.9% FLUSH 5 ML FLUSH FLUSH SCH (21:16)
[2016-10-17 00:34] VITALS: BP 151/89; PULSE 105; RESP 17; TEMP 97.6; O2SAT 99
[2016-10-17 04:55] VITALS: BP 135/80; PULSE 95; RESP 17; TEMP 96.6; O2SAT 96
[2016-10-17] MEDS: GABAPENTIN 100 MG CAP PO SCH ×5 (05:38→21:20)
[2016-10-17 06:22] LABS: AUTOMATED NEUTROPHIL # 7.4 TH/MM3 (1.8-7.7); BASOPHIL # 0.3 TH/MM3 (0-0.2); BASOPHIL % 2.1 % (0.0-2.0); EOSINOPHIL # 0.1 TH/MM3 (0-0.4); EOSINOPHIL % 0.5 % (0.0-4.0); HEMATOCRIT 31.5 % (35.0-46.0); HEMO FLAGS DIFF FINAL; LYMPH % 31.2 % (9.0-44.0); LYMPHOCYTE # 4.1 TH/MM3 (1.0-4.8); MEAN CELL VOLUME 84.2 FL (80.0-100.0); MEAN CORPUSCULAR HEMOGLOBIN 27.6 PG (27.0-34.0); MEAN CORPUSCULAR HGB CONC 32.8 % (32.0-36.0); MONO % 10.1 % (0.0-8.0); NEUT % 56.1 % (16.0-70.0); PLATELET COUNT 342 TH/MM3 (150-450); RED BLOOD COUNT 3.74 MIL/MM3 (4.00-5.30); RED CELL DISTRIBUTION WIDTH 16.1 % (11.6-17.2); WHITE BLOOD COUNT 13.2 TH/MM3 (4.0-11.0)
[2016-10-17 07:13] LABS: ALKALINE PHOSPHATASE 104 U/L (45-117); ALT (GPT) 28 U/L (10-53); ANION GAP 11 MEQ/L (5-15); AST (GOT) 33 U/L (15-37); BICARBONATE 25.7 MEQ/L (21.0-32.0); BLOOD UREA NITROGEN 5 MG/DL (7-18); CHLORIDE 95 MEQ/L (98-107); GLOMERULAR FILTRATION RATE 86 ML/MIN (>89); POTASSIUM 3.9 MEQ/L (3.5-5.1); SODIUM (NA) 132 MEQ/L (136-145); TOTAL BILIRUBIN ADULT 0.2 MG/DL (0.2-1.0)
[2016-10-17 08:00] VITALS: BP 145/90; PULSE 93; RESP 18; TEMP 97.2; O2SAT 100
[2016-10-17] MEDS: LORATADINE 10 MG TAB PO SCH (08:57)
[2016-10-17] MEDS: POTASSIUM CHLORIDE 10 MEQ CONTROLLED RELEASE TAB PO SCH (08:57)
[2016-10-17] MEDS: predniSONE 20 MG TAB PO SCH (08:57)
[2016-10-17] MEDS: LISINOPRIL 10 MG TAB PO SCH (08:57)
[2016-10-17] MEDS: FUROSEMIDE 20 MG TAB PO SCH ×2 (08:57→17:39)
[2016-10-17] MEDS: AZITHROMYCIN 250 MG TAB PO SCH (08:57)
[2016-10-17] MEDS: clonazePAM 1 MG TAB PO SCH ×2 (08:57→21:20)
[2016-10-17] MEDS: SODIUM CHLORIDE 1 GRAM TAB PO SCH ×3 (08:58→17:39)
[2016-10-17] MEDS: BUDESONIDE-FORMOTEROL 160/4.5 MCG INHALER INH SCH ×2 (09:00→21:00)
[2016-10-17] MEDS: SODIUM CHLORIDE 0.9% FLUSH 5 ML FLUSH FLUSH SCH ×2 (09:02→21:20)
--- NOTE | 2016-10-17 10:10 | HHI.NPPN ---
Subjective History of Present Illness Patient with a history of chronic hyponatremia and tobacco usage with CT scan indicating probable malignancy but biopsy currently pending as far as results are concerned. Patient's serum sodium level initially improved with salt pills however deteriorating again and I was recalled. Patient himself has no complaints. by bedside. Interval History Feeling OK today. States she is having diarrhea Review of Systems General Constitutional: Fatigue Objective Data Data 10/16/16 10/17/16 19:00 07:00 Intake Total 480 ml 960 ml Balance 480 ml 960 ml Intake Oral 480 ml 960 ml # Voids 4 9 # Bowel Movements 2 5 Vital Signs Date Time Temp Pulse Resp B/P Pulse Ox O2 Delivery O2 Flow Rate FiO2 10/17/16 08:00 97.2 93 18 145/90 100 10/17/16 04:55 96.6 95 17 135/80 96 10/17/16 00:34 97.6 105 17 151/89 99 10/16/16 21:30 96.5 104 17 129/88 97 10/16/16 17:40 95.9 117 17 129/84 99 10/16/16 16:31 93 21 10/16/16 12:46 95.5 115 16 103/73 97 -: 10/17/16 0556 10/17/16 0556 Medication Review Current Medications Medications (Trade) Dose Ordered Sig/Ermias Route Start Time Stop Time Status Last Admin (Zofran Inj) 4 mg Q6H PRN IV 10/11/16 17:00 (NS Flush) 2 ml UNSCH PRN FLUSH 10/11/16 17:30 10/12/16 03:30 (NS Flush) 2 ml BID FLUSH 10/11/16 21:00 10/17/16 09:02 (Tylenol) 650 mg Q4H PRN PO 10/11/16 17:30 10/15/16 21:03 Naloxone HCl 0.4 mg 0.4 mg UNSCH PRN IV 10/11/16 17:30 (D5W 1000 ml Inj) 400 ml @ 200 mls/hr BOLUS PRN IV 10/12/16 00:15 10/12/16 03:29 (Proair Hfa Inh) 2 puff Q6H PRN INH 10/12/16 14:15 (KlonoPIN) 1 mg BID PO 10/12/16 14:15 10/17/16 08:57 (Prinivil) 10 mg DAILY PO 10/12/16 14:30 10/17/16 08:57 Loratadine 10 mg 10 mg DAILY PO 10/12/16 14:15 10/17/16 08:57 (Rocephin Inj/NS Inj) 100 ml @ 200 mls/hr Q24H IV 10/12/16 18:00 10/16/16 16:56 (Zithromax) 500 mg DAILY PO 10/13/16 09:00 10/17/16 08:57 (Symbicort 160-4.5 Inh) 1 puff Q12HR INH 10/12/16 21:00 10/15/16 08:29 (Deltasone) 20 mg DAILY PO 10/15/16 09:00 10/17/16 08:57 (Sodium Chloride) 2 gm TID PO 10/14/16 21:30 10/17/16 08:58 (Lasix) 10 mg BID@09,18 PO 10/16/16 09:00 10/17/16 08:57 (KCl) 10 meq DAILY PO 10/15/16 15:00 10/17/16 08:57 Physical Exam General Appearance: No Acute Distress, Comfortable Eyes Eye Exam: Pupils Equal, Pupils Reactive, Sclera White Ears & Nose Ears & Nose Exam: Nasal Mucosa [place], Septum Midline Throat Throat Exam: Oral Mucosa [place] & Moist Pulmonary Resp Exam: Clear Bilaterally, Breath Sounds Equal Cardiology CV Exam: Regular, Normal Sinus Rhythm Gastrointestinal/Abdomen GI Exam: Soft, Non-Tender, Bowel Sounds Present Musculoskeletal MS Exam: Joints Intact, Normal Tone Integumentary Skin Exam: Clear, Warm, Dry, Intact, Normal Turgor Extremeties Extremities Exam: No Edema Neurologic Neuro Exam: Alert, Awake, Oriented, Speech Clear Psychiatric Psych Exam: Appropriate Responses Assessment/Plan Discussed Condition With: Patient, Spouse Problem List: (1) Hyponatremia Plan: Na level improved after dose of Samsca. Continue on NaCl tablets with Lasix. Continue on fluid restriction. Advised of importance of dietary protein intake. Goal will be to maintain the sodium level 130 of greater if possible. If the patient does have small cell carcinoma definitive treatment of SIADH is treatment of the underlying cause. We'll defer to oncology in this regard. Elda Tejada Oct 17, 2016 10:10
--- NOTE | 2016-10-17 11:03 | PD.ONC.PN ---
Subjective Subjective Remarks Afebrile overnight. Patient states she had multiple loose stools overnight. She denies pain at the site of her CT-guided liver biopsy. She wants to know when she can go home. Objective Data Date Time Temp Pulse Resp B/P Pulse Ox O2 Delivery O2 Flow Rate FiO2 10/17/16 08:00 97.2 93 18 145/90 100 10/17/16 04:55 96.6 95 17 135/80 96 10/17/16 00:34 97.6 105 17 151/89 99 10/16/16 21:30 96.5 104 17 129/88 97 10/16/16 17:40 95.9 117 17 129/84 99 10/16/16 16:31 93 21 10/16/16 12:46 95.5 115 16 103/73 97 10/17/16 10/17/16 10/17/16 07:00 15:00 23:00 Intake Total 240 ml Balance 240 ml Result Diagram: 10/17/16 0556 10/17/16 0556 Laboratory Results Laboratory Tests Test 10/17/16 05:56 White Blood Count 13.2 TH/MM3 Red Blood Count 3.74 MIL/MM3 Hemoglobin 10.3 GM/DL Hematocrit 31.5 % Mean Corpuscular Volume 84.2 FL Mean Corpuscular Hemoglobin 27.6 PG Mean Corpuscular Hemoglobin 32.8 % Concent Red Cell Distribution Width 16.1 % Platelet Count 342 TH/MM3 Mean Platelet Volume 9.3 FL Neutrophils (%) (Auto) 56.1 % Lymphocytes (%) (Auto) 31.2 % Monocytes (%) (Auto) 10.1 % Eosinophils (%) (Auto) 0.5 % Basophils (%) (Auto) 2.1 % Neutrophils # (Auto) 7.4 TH/MM3 Lymphocytes # (Auto) 4.1 TH/MM3 Monocytes # (Auto) 1.3 TH/MM3 Eosinophils # (Auto) 0.1 TH/MM3 Basophils # (Auto) 0.3 TH/MM3 CBC Comment DIFF FINAL Differential Comment Sodium Level 132 MEQ/L Potassium Level 3.9 MEQ/L Chloride Level 95 MEQ/L Carbon Dioxide Level 25.7 MEQ/L Anion Gap 11 MEQ/L Blood Urea Nitrogen 5 MG/DL Creatinine 0.71 MG/DL Estimat Glomerular Filtration 86 ML/MIN Rate Random Glucose 82 MG/DL Calcium Level 9.2 MG/DL Total Bilirubin 0.2 MG/DL Aspartate Amino Transf 33 U/L (AST/SGOT) Alanine Aminotransferase 28 U/L (ALT/SGPT) Alkaline Phosphatase 104 U/L Total Protein 7.5 GM/DL Albumin 3.5 GM/DL Administered Medications Medications (Trade) Dose Ordered Sig/Ermias Route PRN Reason Start Time Stop Time Status Last Admin Dose Admin IV Flush (NS Flush) 2 ml UNSCH PRN FLUSH FLUSH AFTER USING IV ACCESS 10/11/16 17:30 10/12/16 03:30 IV Flush (NS Flush) 2 ml BID FLUSH 10/11/16 21:00 10/17/16 09:02 Acetaminophen 650 mg 650 mg Q4H PRN PO TEMP > 100.4 10/11/16 17:30 10/15/16 21:03 Dextrose (D5W 1000 ml Inj) 400 ml @ 200 mls/hr BOLUS PRN IV SEE COMMENTS 10/12/16 00:15 10/12/16 03:29 Clonazepam (KlonoPIN) 1 mg BID PO 10/12/16 14:15 10/17/16 08:57 Lisinopril (Prinivil) 10 mg DAILY PO 10/12/16 14:30 10/17/16 08:57 Loratadine 10 mg 10 mg DAILY PO 10/12/16 14:15 10/17/16 08:57 Ceftriaxone Sodium/Sodium Chloride (Rocephin Inj/NS Inj) 100 ml @ 200 mls/hr Q24H IV 10/12/16 18:00 10/16/16 16:56 Azithromycin (Zithromax) 500 mg DAILY PO 10/13/16 09:00 10/17/16 08:57 Budesonide/ Formoterol Fumarate (Symbicort 160-4.5 Inh) 1 puff Q12HR INH 10/12/16 21:00 10/15/16 08:29 Prednisone (Deltasone) 20 mg DAILY PO 10/15/16 09:00 10/17/16 08:57 Sodium Chloride (Sodium Chloride) 2 gm TID PO 10/14/16 21:30 10/17/16 08:58 Furosemide (Lasix) 10 mg BID@,18 PO 10/16/16 09:00 10/17/16 08:57 Potassium Chloride (KCl) 10 meq DAILY PO 10/15/16 15:00 10/17/16 08:57 Objective Remarks GENERAL: Middle aged female, sitting up in bed in nad. SKIN: Warm and dry. HEAD: Normocephalic. EYES: No injection or drainage. NECK: Supple, trachea midline. CARDIOVASCULAR: Regular rate and rhythm RESPIRATORY: Breath sounds equal bilaterally. No accessory muscle use. GASTROINTESTINAL: Abdomen soft, non-tender, nondistended. EXTREMITIES: No cyanosis NEUROLOGICAL: No obvious focal deficit. Awake, alert, and oriented x3. Assessment/Plan Problem List: (1) Normocytic anemia Status: Acute Plan: --hgb stable. --B12 WNL --low iron (2) Hyponatremia Status: Acute Plan: --on sodium tablets 2gm TID --on Samsca + diuretics --nephrology following --sodium improved to 132 today (3) Liver lesion Status: Acute Plan: --s/p CT guided liver biopsy, pathology pending (4) Lesion of lung Status: Acute (5) SIADH (syndrome of inappropriate ADH production) Status: Acute (6) Tobacco abuse Status: Acute Assessment 51y/o female with stage IV small cell lung cancer. Plan 1. 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 2. monitor sodium 3. arrange follow up in clinic--fs faxed to new patient referrals. 4. we plan to give the first dose of chemotherapy inpatient as we expect outpatient follow up will be delayed due to patient's lack of insurance. Attending Statement The exam, history, and the medical decision-making described in the above note were completed with the assistance of the mid-level provider. I reviewed and agree with the findings presented. I attest that I had a [id number] encounter with the patient on the same day, and personally performed and documented my assessment and findings in the medical record. Extensive stage Small Cell carcinoma. Needs port placement. Case management to assist with insurance and outpatient follow-up. If she is not able to be seen out-patient in a timely fashion then we plan to give her first treatment in- patient. SIADH--Na improving. continue salt tabs and free water restriction Johanna Orozco Oct 17, 2016 11:03 Aakash Gama MD Oct 17, 2016 20:52
--- NOTE | 2016-10-17 11:54 | HHI.PR ---
Subjective History of Present Illness Patient have diarrhea checking stool studies. sodium still low 132 Nephrology managing.. Pulmonary and oncology input noted s/p CT Guided biopsy report pending.. metastatic work up noted.. D/W RN Bora at bed side. Review of Systems Constitutional Constitutional: Fatigue, Weakness Vitals/Results Intake & Output 10/16/16 10/16/16 10/17/16 15:00 23:00 07:00 Intake Total 480 ml 720 ml 240 ml Balance 480 ml 720 ml 240 ml Intake Oral 480 ml 720 ml 240 ml # Voids 4 6 3 # Bowel Movements 2 5 0 Vital Signs Vital Signs Date Time Temp Pulse Resp B/P Pulse Ox O2 Delivery O2 Flow Rate FiO2 10/17/16 08:00 97.2 93 18 145/90 100 10/17/16 04:55 96.6 95 17 135/80 96 10/17/16 00:34 97.6 105 17 151/89 99 10/16/16 21:30 96.5 104 17 129/88 97 10/16/16 17:40 95.9 117 17 129/84 99 10/16/16 16:31 93 21 10/16/16 12:46 95.5 115 16 103/73 97 CBC/BMP: 10/17/16 0556 10/17/16 0556 Lab Results Laboratory Tests Test 10/17/16 05:56 White Blood Count 13.2 TH/MM3 Red Blood Count 3.74 MIL/MM3 Hemoglobin 10.3 GM/DL Hematocrit 31.5 % Mean Corpuscular Volume 84.2 FL Mean Corpuscular Hemoglobin 27.6 PG Mean Corpuscular Hemoglobin 32.8 % Concent Red Cell Distribution Width 16.1 % Platelet Count 342 TH/MM3 Mean Platelet Volume 9.3 FL Neutrophils (%) (Auto) 56.1 % Lymphocytes (%) (Auto) 31.2 % Monocytes (%) (Auto) 10.1 % Eosinophils (%) (Auto) 0.5 % Basophils (%) (Auto) 2.1 % Neutrophils # (Auto) 7.4 TH/MM3 Lymphocytes # (Auto) 4.1 TH/MM3 Monocytes # (Auto) 1.3 TH/MM3 Eosinophils # (Auto) 0.1 TH/MM3 Basophils # (Auto) 0.3 TH/MM3 CBC Comment DIFF FINAL Differential Comment Sodium Level 132 MEQ/L Potassium Level 3.9 MEQ/L Chloride Level 95 MEQ/L Carbon Dioxide Level 25.7 MEQ/L Anion Gap 11 MEQ/L Blood Urea Nitrogen 5 MG/DL Creatinine 0.71 MG/DL Estimat Glomerular Filtration 86 ML/MIN Rate Random Glucose 82 MG/DL Calcium Level 9.2 MG/DL Total Bilirubin 0.2 MG/DL Aspartate Amino Transf 33 U/L (AST/SGOT) Alanine Aminotransferase 28 U/L (ALT/SGPT) Alkaline Phosphatase 104 U/L Total Protein 7.5 GM/DL Albumin 3.5 GM/DL Physical Exam General General Appearance: No Acute Distress, Comfortable Eyes Eye Exam: Pupils Equal, Pupils Reactive, Sclera White Ears & Nose Ears & Nose Exam: Nasal Mucosa [place], Septum Midline Throat Throat Exam: Oral Mucosa [place] & Moist Pulmonary Resp Exam: Clear Bilaterally, Breath Sounds Equal Cardiology CV Exam: Regular, Normal Sinus Rhythm Gastrointestinal/Abdomen GI Exam: Soft, Non-Tender, Bowel Sounds Present Musculoskeletal MS Exam: Joints Intact, Normal Tone Integumentary Skin Exam: Clear, Warm, Dry, Intact, Normal Turgor Extremeties Extremities Exam: No Edema Neurologic Neuro Exam: Alert, Awake, Oriented, Speech Clear Psychiatric Psych Exam: Appropriate Responses Assessment/Plan Assessment/Plan ASSESSMENT AND PLAN 1. This is 51-year-old female who came to the ER diagnosed with Generalized weakness, most likely secondary to hyponatremia and hypokalemia. The patient's sodium and potassium have improved. Nephrology, has seen the patient. Per nephrology on sodium chloride pill with fluid restriction. 2. Mass-like consolidative involving the left upper lobe with metastatic involvement of the liver and mediastinal lymph nodes. hepatic lesion is percutaneous accessible for biopsy. pulmonology and oncology input noted metastatic work up in progress CT Abdomen and pelvis shows multiple hepatic lesion and lumber spine lesion consistant with metastasis ...d/w Patient S/P CT Guided biopsy. Report pending... MRI of Brain discussed with patient. no metastasis. The patient was advised to quit smoking. She has been smoking since the age of 11. 3. History of smoking. Patient advised to quit. 4. Hypertension. Continue home medication. 5. History of anxiety. Continue home medication. 6. Diarrhea checking stool study. We are going to manage the patient on a daily basis and make recommendations on a daily basis. Check CBC with diff CMP in AM. Discussed Condition with: Patient Uli Serrano MD Oct 17, 2016 11:54
[2016-10-17 12:00] VITALS: BP 142/88; PULSE 99; RESP 18; TEMP 98.1; O2SAT 97
[2016-10-17] MEDS: ACETAMINOPHEN 325 MG TAB PO PRN (13:17)
[2016-10-17 16:00] VITALS: BP 121/82; PULSE 91; RESP 18; TEMP 97.4; O2SAT 97
[2016-10-17] MEDS: cefTRIAXone INJ 1,000 MG in SODIUM CHLORIDE 0.9% INJ 100 ML IV SCH (17:39)
--- NOTE | 2016-10-17 19:55 | HHI.PR ---
Subjective Remarks Feels better , No fever. CT biopsy of liver shows Small cell Carcinoma.On IV antibiotics for MARC infiltrate. Off o2 Oncology on Board for chemo. Objective Vital Signs Date Time Temp Pulse Resp B/P Pulse Ox O2 Delivery O2 Flow Rate FiO2 10/17/16 16:00 97.4 91 18 121/82 97 10/17/16 12:00 98.1 99 18 142/88 97 10/17/16 09:00 Room Air 10/17/16 08:00 97.2 93 18 145/90 100 10/17/16 04:55 96.6 95 17 135/80 96 10/17/16 00:34 97.6 105 17 151/89 99 10/16/16 21:30 96.5 104 17 129/88 97 I/O 10/16/16 10/16/16 10/16/16 10/17/16 10/17/16 10/17/16 07:00 15:00 23:00 07:00 15:00 23:00 Intake Total 240 ml 480 ml 720 ml 240 ml 830 ml Balance 240 ml 480 ml 720 ml 240 ml 830 ml Intake Oral 240 ml 480 ml 720 ml 240 ml 830 ml # Voids 2 4 6 3 3 # Bowel Movements 2 5 0 2 Result Diagram: 10/17/16 0556 10/17/16 0556 Objective Remarks This thinly built middle-aged white female is alert, pale and in no acute distress. HEENT: Head normocephalic. Pupils reactive. Tongue is moist. Nasal mucosa erythematous. Throat is clear NECK: Supple. No lymphadenopathy. Trachea midline. CHEST: Equal movements with distant breath sounds with occasional wheezes, bilaterally . HEART: The heart sounds are irregular. S1-S2 with no murmur. No S3 gallop. ABDOMEN: Soft, protuberant, no masses, no organomegaly. Liver is just felt below the costal margin. Bowel sounds are active. EXTREMITIES: No edema, no lesions. No calf tenderness. Reflexes are normal. NEUROLOGIC: There are no gross motor deficits. RECTAL: Deferred. SKIN: No lesions. Assessment and Plan Assessment and Plan IMPRESSION 1. COPD with chronic bronchitis and acute exacerbation. 2. Left upper lobe lung density, possible obstructive pneumonia with malignancy. 3. Liver lesions, Metastatic Small cell Ca. Plan 1. O2 prn 2 l 2. Nebs qid, duoneb. 3. CXR in am 4. Prednisone 20 mg daily.and taper over 2 weeks. 5. Oncology evaluation 6. D/C IV antibiotics and add ceftin 500 mg bid X 7 days. Ronel Sparrow MD Oct 17, 2016 19:55
[2016-10-17 20:00] VITALS: BP 129/74; PULSE 103; RESP 16; TEMP 97.5; O2SAT 99
[2016-10-17] MEDS: CEFUROXIME AXETIL 500 MG TAB PO SCH (21:20)
[2016-10-18] VITALS (10 sets, daily range): BP systolic 132–189; BP diastolic 68–102; PULSE 68–96; RESP 16–20; TEMP 95.5–98.1; O2SAT 95–100
[2016-10-18] MEDS ORDERED: cloNIDine HCL 0.1 MG TAB PO PRN (06:00)
[2016-10-18] MEDS: GABAPENTIN 100 MG CAP PO SCH ×5 (06:10→20:49)
[2016-10-18 06:11] LABS: AUTOMATED NEUTROPHIL # 8.7 TH/MM3 (1.8-7.7); BASOPHIL # 0.2 TH/MM3 (0-0.2); BASOPHIL % 1.2 % (0.0-2.0); EOSINOPHIL # 0.1 TH/MM3 (0-0.4); EOSINOPHIL % 0.8 % (0.0-4.0); HEMATOCRIT 26.4 % (35.0-46.0); HEMO FLAGS DIFF FINAL; LYMPHOCYTE # 4.2 TH/MM3 (1.0-4.8); MEAN CELL VOLUME 84.2 FL (80.0-100.0); MEAN CORPUSCULAR HEMOGLOBIN 28.4 PG (27.0-34.0); MEAN CORPUSCULAR HGB CONC 33.7 % (32.0-36.0); MONO % 8.9 % (0.0-8.0); NEUT % 60.1 % (16.0-70.0); PLATELET COUNT 317 TH/MM3 (150-450); RED BLOOD COUNT 3.14 MIL/MM3 (4.00-5.30); RED CELL DISTRIBUTION WIDTH 15.9 % (11.6-17.2); WHITE BLOOD COUNT 14.4 TH/MM3 (4.0-11.0)
[2016-10-18 06:34] LABS: ALKALINE PHOSPHATASE 89 U/L (45-117); ALT (GPT) 20 U/L (10-53); ANION GAP 9 MEQ/L (5-15); AST (GOT) 18 U/L (15-37); BICARBONATE 25.7 MEQ/L (21.0-32.0); BLOOD UREA NITROGEN 5 MG/DL (7-18); CHLORIDE 92 MEQ/L (98-107); GLOMERULAR FILTRATION RATE 114 ML/MIN (>89); POTASSIUM 3.3 MEQ/L (3.5-5.1); SODIUM (NA) 127 MEQ/L (136-145); TOTAL BILIRUBIN ADULT 0.2 MG/DL (0.2-1.0)
--- NOTE | 2016-10-18 07:58 | HHI.PR ---
Subjective History of Present Illness Patient have diarrhea checking stool studies. sodium still low 127 Nephrology managing.. Pulmonary and oncology input noted s/p CT Guided biopsy report shows small cell cancer .. metastatic work up noted.. s/p Port Placement.. D/ W RN Bora at bed side. Low Potassium will replace. Review of Systems Constitutional Constitutional: Fatigue, Weakness Vitals/Results Intake & Output 10/17/16 10/17/16 10/18/16 15:00 23:00 07:00 Intake Total 830 ml 240 ml 240 ml Balance 830 ml 240 ml 240 ml Intake Oral 830 ml 240 ml 240 ml # Voids 3 2 1 # Bowel Movements 2 2 0 Vital Signs Vital Signs Date Time Temp Pulse Resp B/P Pulse Ox O2 Delivery O2 Flow Rate FiO2 10/18/16 05:41 97.6 89 16 176/91 97 10/18/16 00:00 98.0 92 16 139/68 95 10/17/16 20:00 97.5 103 16 129/74 99 10/17/16 16:00 97.4 91 18 121/82 97 10/17/16 12:00 98.1 99 18 142/88 97 10/17/16 09:00 Room Air 10/17/16 08:00 97.2 93 18 145/90 100 CBC/BMP: 10/18/16 0525 10/18/16 0525 Lab Results Laboratory Tests Test 10/18/16 05:25 White Blood Count 14.4 TH/MM3 Red Blood Count 3.14 MIL/MM3 Hemoglobin 8.9 GM/DL Hematocrit 26.4 % Mean Corpuscular Volume 84.2 FL Mean Corpuscular Hemoglobin 28.4 PG Mean Corpuscular Hemoglobin 33.7 % Concent Red Cell Distribution Width 15.9 % Platelet Count 317 TH/MM3 Mean Platelet Volume 9.4 FL Neutrophils (%) (Auto) 60.1 % Lymphocytes (%) (Auto) 29.0 % Monocytes (%) (Auto) 8.9 % Eosinophils (%) (Auto) 0.8 % Basophils (%) (Auto) 1.2 % Neutrophils # (Auto) 8.7 TH/MM3 Lymphocytes # (Auto) 4.2 TH/MM3 Monocytes # (Auto) 1.3 TH/MM3 Eosinophils # (Auto) 0.1 TH/MM3 Basophils # (Auto) 0.2 TH/MM3 CBC Comment DIFF FINAL Differential Comment Sodium Level 127 MEQ/L Potassium Level 3.3 MEQ/L Chloride Level 92 MEQ/L Carbon Dioxide Level 25.7 MEQ/L Anion Gap 9 MEQ/L Blood Urea Nitrogen 5 MG/DL Creatinine 0.56 MG/DL Estimat Glomerular Filtration 114 ML/MIN Rate Random Glucose 74 MG/DL Calcium Level 8.8 MG/DL Total Bilirubin 0.2 MG/DL Aspartate Amino Transf 18 U/L (AST/SGOT) Alanine Aminotransferase 20 U/L (ALT/SGPT) Alkaline Phosphatase 89 U/L Total Protein 6.3 GM/DL Albumin 2.9 GM/DL Physical Exam General General Appearance: No Acute Distress, Comfortable Eyes Eye Exam: Pupils Equal, Pupils Reactive, Sclera White Ears & Nose Ears & Nose Exam: Nasal Mucosa [place], Septum Midline Throat Throat Exam: Oral Mucosa [place] & Moist Pulmonary Resp Exam: Clear Bilaterally, Breath Sounds Equal Cardiology CV Exam: Regular, Normal Sinus Rhythm Gastrointestinal/Abdomen GI Exam: Soft, Non-Tender, Bowel Sounds Present Musculoskeletal MS Exam: Joints Intact, Normal Tone Integumentary Skin Exam: Clear, Warm, Dry, Intact, Normal Turgor Extremeties Extremities Exam: No Edema Neurologic Neuro Exam: Alert, Awake, Oriented, Speech Clear Psychiatric Psych Exam: Appropriate Responses Assessment/Plan Assessment/Plan ASSESSMENT AND PLAN 1. This is 51-year-old female who came to the ER diagnosed with Generalized weakness, most likely secondary to hyponatremia and hypokalemia. The patient's sodium and potassium have improved. Nephrology, has seen the patient. Per nephrology on sodium chloride pill with fluid restriction. 2. Mass-like consolidative involving the left upper lobe with metastatic involvement of the liver and mediastinal lymph nodes. hepatic lesion is percutaneous accessible for biopsy. pulmonology and oncology input noted metastatic work up noted CT Abdomen and pelvis shows multiple hepatic lesion and lumber spine lesion consistant with metastasis ...d/w Patient S/P CT Guided biopsy. Report shows small cell lung cancer. s/p Port Placement..... MRI of Brain discussed with patient. no metastasis. The patient was advised to quit smoking. She has been smoking since the age of 11. 3. History of smoking. Patient advised to quit. 4. Hypertension. Continue home medication. 5. History of anxiety. Continue home medication. 6. Diarrhea checking stool study. 7. Hypokalemia will replace We are going to manage the patient on a daily basis and make recommendations on a daily basis. Check CBC with diff CMP in AM. Discussed Condition with: Patient Uli Serrano MD Oct 18, 2016 07:58
[2016-10-18] MEDS: POTASSIUM CHLORIDE 10 MEQ CONTROLLED RELEASE TAB PO SCH (08:33)
[2016-10-18] MEDS: SODIUM CHLORIDE 1 GRAM TAB PO SCH ×3 (08:33→17:43)
[2016-10-18] MEDS: FUROSEMIDE 20 MG TAB PO SCH ×2 (08:33→17:44)
[2016-10-18] MEDS: CEFUROXIME AXETIL 500 MG TAB PO SCH ×2 (08:33→20:00)
[2016-10-18] MEDS: LISINOPRIL 10 MG TAB PO SCH (08:34)
[2016-10-18] MEDS: LORATADINE 10 MG TAB PO SCH (08:34)
[2016-10-18] MEDS: predniSONE 20 MG TAB PO SCH (08:34)
[2016-10-18] MEDS: ACETAMINOPHEN 325 MG TAB PO PRN ×2 (08:34→17:43)
[2016-10-18] MEDS: clonazePAM 1 MG TAB PO SCH ×2 (08:34→20:00)
[2016-10-18] MEDS: SODIUM CHLORIDE 0.9% FLUSH 5 ML FLUSH FLUSH SCH ×2 (08:35→20:04)
[2016-10-18] MEDS: BUDESONIDE-FORMOTEROL 160/4.5 MCG INHALER INH SCH ×2 (08:40→20:01)
[2016-10-18] MEDS ORDERED: LIDOCAINE 1%/EPINEPHrine 1:100,000 SOLN 20 ML VIAL ONE (09:23)
--- NOTE | 2016-10-18 10:04 | PD.ONC.PN ---
Subjective Subjective Remarks Afebrile overnight. Patient reporting feeling thirsty, wanting to be able to drink more fluids. No pain at site of liver biopsy. Objective Data Date Time Temp Pulse Resp B/P Pulse Ox O2 Delivery O2 Flow Rate FiO2 10/18/16 05:41 97.6 89 16 176/91 97 10/18/16 00:00 98.0 92 16 139/68 95 10/17/16 20:00 97.5 103 16 129/74 99 10/17/16 16:00 97.4 91 18 121/82 97 10/17/16 12:00 98.1 99 18 142/88 97 10/18/16 10/18/16 10/18/16 07:00 15:00 23:00 Intake Total 240 ml Balance 240 ml Result Diagram: 10/18/1625 10/18/1625 Laboratory Results Laboratory Tests Test 10/18/16 05:25 White Blood Count 14.4 TH/MM3 Red Blood Count 3.14 MIL/MM3 Hemoglobin 8.9 GM/DL Hematocrit 26.4 % Mean Corpuscular Volume 84.2 FL Mean Corpuscular Hemoglobin 28.4 PG Mean Corpuscular Hemoglobin 33.7 % Concent Red Cell Distribution Width 15.9 % Platelet Count 317 TH/MM3 Mean Platelet Volume 9.4 FL Neutrophils (%) (Auto) 60.1 % Lymphocytes (%) (Auto) 29.0 % Monocytes (%) (Auto) 8.9 % Eosinophils (%) (Auto) 0.8 % Basophils (%) (Auto) 1.2 % Neutrophils # (Auto) 8.7 TH/MM3 Lymphocytes # (Auto) 4.2 TH/MM3 Monocytes # (Auto) 1.3 TH/MM3 Eosinophils # (Auto) 0.1 TH/MM3 Basophils # (Auto) 0.2 TH/MM3 CBC Comment DIFF FINAL Differential Comment Sodium Level 127 MEQ/L Potassium Level 3.3 MEQ/L Chloride Level 92 MEQ/L Carbon Dioxide Level 25.7 MEQ/L Anion Gap 9 MEQ/L Blood Urea Nitrogen 5 MG/DL Creatinine 0.56 MG/DL Estimat Glomerular Filtration 114 ML/MIN Rate Random Glucose 74 MG/DL Calcium Level 8.8 MG/DL Total Bilirubin 0.2 MG/DL Aspartate Amino Transf 18 U/L (AST/SGOT) Alanine Aminotransferase 20 U/L (ALT/SGPT) Alkaline Phosphatase 89 U/L Total Protein 6.3 GM/DL Albumin 2.9 GM/DL Administered Medications Medications (Trade) Dose Ordered Sig/Ermias Route PRN Reason Start Time Stop Time Status Last Admin Dose Admin IV Flush (NS Flush) 2 ml UNSCH PRN FLUSH FLUSH AFTER USING IV ACCESS 10/11/16 17:30 10/12/16 03:30 IV Flush (NS Flush) 2 ml BID FLUSH 10/11/16 21:00 10/18/16 08:35 Acetaminophen 650 mg 650 mg Q4H PRN PO TEMP > 100.4 10/11/16 17:30 10/18/16 08:34 Dextrose (D5W 1000 ml Inj) 400 ml @ 200 mls/hr BOLUS PRN IV SEE COMMENTS 10/12/16 00:15 10/12/16 03:29 Clonazepam (KlonoPIN) 1 mg BID PO 10/12/16 14:15 10/18/16 08:34 Lisinopril (Prinivil) 10 mg DAILY PO 10/12/16 14:30 10/18/16 08:34 Loratadine (Claritin) 10 mg DAILY PO 10/12/16 14:15 10/18/16 08:34 Budesonide/ Formoterol Fumarate (Symbicort 160-4.5 Inh) 1 puff Q12HR INH 10/12/16 21:00 10/15/16 08:29 Prednisone (Deltasone) 20 mg DAILY PO 10/15/16 09:00 10/18/16 08:34 Sodium Chloride (Sodium Chloride) 2 gm TID PO 10/14/16 21:30 10/18/16 08:33 Furosemide (Lasix) 10 mg BID@09,18 PO 10/16/16 09:00 10/18/16 08:33 Potassium Chloride (KCl) 10 meq DAILY PO 10/15/16 15:00 10/18/16 08:33 Cefuroxime Axetil (Ceftin) 500 mg Q12HR PO 10/17/16 21:00 10/18/16 08:33 Objective Remarks GENERAL: Middle aged female, sitting up in bed. SKIN: Warm and dry. HEAD: Normocephalic. EYES: No injection or drainage. NECK: Supple, trachea midline. CARDIOVASCULAR: Regular rate and rhythm RESPIRATORY: diminished at bases. anterior butler occasional wheeze GASTROINTESTINAL: Abdomen soft, non-tender, nondistended. EXTREMITIES: No cyanosis NEUROLOGICAL: awake and alert, normal speech. Assessment/Plan Problem List: (1) SCLC (small cell lung carcinoma) Status: Acute Plan: --CT guided lung biopsy shows small cell (oat cell) carcinoma --plan to place port and start chemotherapy inpatient (2) Normocytic anemia Status: Acute Plan: --monitor hgb --B12 WNL --low iron (3) Hyponatremia Status: Acute Plan: --on sodium tablets 2gm TID --on Samsca + diuretics --nephrology following (4) SIADH (syndrome of inappropriate ADH production) Status: Acute (5) Tobacco abuse Status: Acute Assessment 51y/o female with stage IV small cell lung cancer. Plan 1. Pathology results returned which show Stage IV small cell lung cancer. I had a long discussion with Ms. Mullins in which I reviewed the pathology results with her and discussed the diagnosis of stage IV lung cancer. We discussed that this is a treatable, but not curable condition. We discussed the next steps of placing a port. I asked Ms. Mullins if she had anyone who she would like me to call to go over the pathology results with. She stated her was working and asked me to speak with her sister. I spoke with her sister in her presence and reviewed the pathology results and diagnosis with her. We discussed the next step of placing the port. We discussed having the case management rn apply for SSI on Ms. Mullins's behalf. We discussed the potential side effects of cytopenias, hair loss, GI symptoms with chemotherapy. Emotional support provided. Feelings normalized. Opportunities to ask questions provided. I discussed with the patient's nurse the aforementioned conversations as well as the diagnosis and treatment plan. I also asked the case management rn to begin working on applying for SSI. Attending Statement The exam, history, and the medical decision-making described in the above note were completed with the assistance of the mid-level provider. I reviewed and agree with the findings presented. I attest that I had a [id number] encounter with the patient on the same day, and personally performed and documented my assessment and findings in the medical record. Discussed diagnosis Port placement Initiate treatment in-patient since there will be delay in treatment o/p transfer to oncology floor. Johanna Orozco 10, 2017 10:04 Aakash Gama MD Oct 18, 2016 21:37
[2016-10-18] MEDS ORDERED: fentaNYL CITRATE 250 MCG/5 ML AMP ONE (10:13)
[2016-10-18] MEDS ORDERED: MIDAZOLAM HCL 5 MG/5 ML VIAL ONE (10:13)
--- NOTE | 2016-10-18 10:20 | RSPPFT ---
DATE OF PROCEDURE: 10/13/16 COMMENTS: Spirometry demonstrates an FEV1 of 1.1 at 47% of predicted, FVC of 1.3 at49%, FEF 25-75 at 39% of predicted. Post-bronchodilator study demonstrated no significant change. Lung volumes were not completed. Flow volume loops suggest a restrictive pattern. IMPRESSION: 1. Moderate restrictive disease. 2. Additional mild to moderate obstructive disease. 3. No significant change following use of bronchodilator.
--- NOTE | 2016-10-18 11:05 | PD.RAD ---
Post Procedure Progress Note Pre Procedure Diagnosis: (1) Liver lesion (2) Lesion of lung (3) SCLC (small cell lung carcinoma) Post Procedure Diagnosis: (1) Liver lesion (2) Lesion of lung (3) SCLC (small cell lung carcinoma) Procedure Date: Oct 18, 2016 Supervising Radiologist: Marshal Mace Proceduralist/Assist: Bisi Lackey, RT(R)(CV), Melany Eastman RT(R)() Anesthesia: Local, Conscious Sedation Plan of Activity Patient to Unit: Nursing Unit Patient Condition: Good See PACS Report for procedural detail/treatment Central Venous Access Device Procedure 1 Right Internal Jugular Infusaport Placement single lumen Indonesian: 8 Marshal Mace MD Oct 18, 2016 11:05
[2016-10-18] MEDS ORDERED: MIDAZOLAM HCL 5 MG/5 ML VIAL IVP ONE (11:26)
[2016-10-18] MEDS ORDERED: fentaNYL CITRATE 250 MCG/5 ML AMP IV PUSH ONE (11:26)
--- NOTE | 2016-10-18 14:00 | RADRPT ---
EXAM DATE/TIME: 10/18/2016 09:42 [place] COMPARISON: No previous studies available for comparison. INDICATIONS : Patient is in need of placement of an Infusaport for chemotherapy. MEDICAL HISTORY : History of lung cancer with metastases to liver and lymph nodes, COPD, asthma, anemia, herniated disk s. SURGICAL HISTORY : History of CTuided liver biopsy, partial hysterectomy, tubal ligation, breast augmentation, endoscopy , colnoscopy. ENCOUNTER: Initial ACUITY: 1 week PAIN SCORE: 0/10 FLUORO TIME: 0.6 minutes SEDATION TIME: 30 minutes ACCESS: Right internal jugular vein SEDATION: 1.) 2 mg midazolam (Versed) IV 2.) 150 mcg fentanyl (Sublimaze) IV Prophylactic antibiotics were administered with appropriate pre-procedure timing. Vancomycin within 2 hours of procedure, Ancef (or alternative) within 1 hour of procedure. DEVICE: 1. 8 Kosovan Bard Power Port PROCEDURE : 1. Continuous pulse oximetry and EKG monitoring. 2. Intravenous conscious sedation. 3. Ultrasound guidance for venous access. 4. Fluoroscopic guided implantable central venous port placement. The patient was placed supine. The neck was prepped in sterile fashion. Full sterile technique was u sed, including cap, mask, sterile gloves and gown, and a large sterile sheet. Hand hygiene and 2% ch lorhexidine Betadine was utilized per protocol for cutaneous antisepsis with appropriate dry time for site. The skin and subcutaneous tissues were infiltrated with local anesthetic solution. Under direct ultrasound guidance, central venous access was accomplished in the targeted vessel. The ultrasound images depicting access guidance were stored and saved to PACS for permanent record. A s ubcutaneous pocket was created using blunt dissection. The port was introduced to the pocket. The c atheter tubing was fed through a subcutaneous tunnel to the venotomy site. The catheter tubing was c ut to a suitable length and then was introduced through a valved Peel-Away sheath and positioned with catheter tubing tip at the cavo-atrial junction level. The pocket incision was closed with subcutic ular Vicryl suture. Steri-Strips were applied. The port was flushed and locked with heparin solutio n per protocol. Sterile dressing was applied to the site. The patient tolerated the procedure well. Conscious sedation was performed with the prescribed dosages and duration as above. The patient eleni ated the procedure well and there were no complications. EKG and oximetry remained stable throughout the procedure. The patient was sent to post anesthesia recovery in stable condition. CONCLUSION: Uncomplicated ultrasound and fluoroscopic guided implanted central venous port catheter placement as described in detail above. An 8 Kosovan Power port was placed. Marshal Mace MD on October 18, 2016 at 13:58 Board Certified Radiologist. This report was verified electronically.
[2016-10-18] MEDS ORDERED: POTASSIUM CL 40 MEQ/30 ML LIQ UDC PO ONE (15:00)
--- NOTE | 2016-10-18 15:00 | EKG ---
Date Performed: 10/17/2016 Time Performed: 12:30:51 PTAGE: 51 years EKG: Sinus rhythm POSSIBLE RIGHT VENTRICULAR CONDUCTION DELAY Since previous tracing, no significant change noted ABNO RMAL RHYTHM ECG PREVIOUS TRACING : 10/11/2016 14.54 DOCTOR: Joseph Prather Interpretating Date/Time 10/18/2016 14:58:19
[2016-10-18] MEDS ORDERED: HYDROmorphone HCL PF 1 MG/ML VIAL IV PRN (23:30)
[2016-10-18] MEDS ORDERED: amLODIPine BESYLATE 5 MG TAB PO SCH (23:30)
[2016-10-19] VITALS (8 sets, daily range): BP systolic 88–172; BP diastolic 69–84; PULSE 68–86; RESP 15–16; TEMP 96.7–98.7; O2SAT 96–100
[2016-10-19] MEDS: GABAPENTIN 100 MG CAP PO SCH ×5 (04:50→21:28)
[2016-10-19 06:29] LABS: BASOPHIL # 0.1 TH/MM3 (0-0.2); BASOPHIL % 1.1 % (0.0-2.0); EOSINOPHIL # 0.1 TH/MM3 (0-0.4); EOSINOPHIL % 0.7 % (0.0-4.0); HEMATOCRIT 28.7 % (35.0-46.0); HEMO FLAGS DIFF FINAL; LYMPH % 35.3 % (9.0-44.0); LYMPHOCYTE # 4.6 TH/MM3 (1.0-4.8); MEAN CELL VOLUME 84.4 FL (80.0-100.0); MEAN CORPUSCULAR HEMOGLOBIN 28.2 PG (27.0-34.0); MEAN CORPUSCULAR HGB CONC 33.4 % (32.0-36.0); MONO % 8.6 % (0.0-8.0); NEUT % 54.3 % (16.0-70.0); PLATELET COUNT 330 TH/MM3 (150-450); RED CELL DISTRIBUTION WIDTH 15.3 % (11.6-17.2); WHITE BLOOD COUNT 12.9 TH/MM3 (4.0-11.0)
[2016-10-19 06:51] LABS: ALKALINE PHOSPHATASE 90 U/L (45-117); ALT (GPT) 19 U/L (10-53); ANION GAP 9 MEQ/L (5-15); AST (GOT) 21 U/L (15-37); BICARBONATE 27.8 MEQ/L (21.0-32.0); BLOOD UREA NITROGEN 4 MG/DL (7-18); CHLORIDE 85 MEQ/L (98-107); GLOMERULAR FILTRATION RATE 111 ML/MIN (>89); POTASSIUM 3.7 MEQ/L (3.5-5.1); TOTAL BILIRUBIN ADULT 0.3 MG/DL (0.2-1.0)
[2016-10-19 07:03] LABS: SODIUM (NA) 122 MEQ/L (136-145)
--- NOTE | 2016-10-19 08:16 | HHI.PR ---
Subjective History of Present Illness Patient have diarrhea checking stool studies. sodium still low 122 Nephrology managing.. Pulmonary and oncology input noted s/p CT Guided biopsy report shows small cell cancer .. metastatic work up noted.. s/p Port Placement.. D/ W SARAH Brasher at bed side. Low Potassium resolved. Review of Systems Constitutional Constitutional: Fatigue, Weakness Vitals/Results Intake & Output 10/18/16 10/18/16 10/19/16 15:00 23:00 07:00 Intake Total 1160 ml 240 ml 200 ml Balance 1160 ml 240 ml 200 ml Intake Oral 1160 ml 240 ml 200 ml # Voids 4 1 1 # Bowel Movements 2 0 0 Vital Signs Vital Signs Date Time Temp Pulse Resp B/P Pulse Ox O2 Delivery O2 Flow Rate FiO2 10/19/16 04:00 97.8 69 16 140/77 96 10/19/16 01:33 149/79 10/19/16 00:30 96.8 68 16 172/81 97 10/18/16 20:45 96.9 81 17 189/102 99 10/18/16 16:00 96.6 96 18 162/85 100 10/18/16 12:20 68 18 139/83 96 10/18/16 11:49 70 18 143/89 96 10/18/16 11:19 74 19 149/91 97 10/18/16 11:15 98.1 72 20 149/90 98 10/18/16 11:04 98.1 72 18 143/90 98 10/18/16 08:25 Room Air CBC/BMP: 10/19/16 0529 10/19/16 0529 Lab Results Laboratory Tests Test 10/19/16 05:29 White Blood Count 12.9 TH/MM3 Red Blood Count 3.40 MIL/MM3 Hemoglobin 9.6 GM/DL Hematocrit 28.7 % Mean Corpuscular Volume 84.4 FL Mean Corpuscular Hemoglobin 28.2 PG Mean Corpuscular Hemoglobin 33.4 % Concent Red Cell Distribution Width 15.3 % Platelet Count 330 TH/MM3 Mean Platelet Volume 9.4 FL Neutrophils (%) (Auto) 54.3 % Lymphocytes (%) (Auto) 35.3 % Monocytes (%) (Auto) 8.6 % Eosinophils (%) (Auto) 0.7 % Basophils (%) (Auto) 1.1 % Neutrophils # (Auto) 7.0 TH/MM3 Lymphocytes # (Auto) 4.6 TH/MM3 Monocytes # (Auto) 1.1 TH/MM3 Eosinophils # (Auto) 0.1 TH/MM3 Basophils # (Auto) 0.1 TH/MM3 CBC Comment DIFF FINAL Differential Comment Sodium Level 122 MEQ/L Potassium Level 3.7 MEQ/L Chloride Level 85 MEQ/L Carbon Dioxide Level 27.8 MEQ/L Anion Gap 9 MEQ/L Blood Urea Nitrogen 4 MG/DL Creatinine 0.57 MG/DL Estimat Glomerular Filtration 111 ML/MIN Rate Random Glucose 71 MG/DL Calcium Level 8.8 MG/DL Total Bilirubin 0.3 MG/DL Aspartate Amino Transf 21 U/L (AST/SGOT) Alanine Aminotransferase 19 U/L (ALT/SGPT) Alkaline Phosphatase 90 U/L Total Protein 6.8 GM/DL Albumin 3.2 GM/DL Physical Exam General General Appearance: No Acute Distress, Comfortable Eyes Eye Exam: Pupils Equal, Pupils Reactive, Sclera White Ears & Nose Ears & Nose Exam: Nasal Mucosa [place], Septum Midline Throat Throat Exam: Oral Mucosa [place] & Moist Pulmonary Resp Exam: Clear Bilaterally, Breath Sounds Equal Cardiology CV Exam: Regular, Normal Sinus Rhythm Gastrointestinal/Abdomen GI Exam: Soft, Non-Tender, Bowel Sounds Present Musculoskeletal MS Exam: Joints Intact, Normal Tone Integumentary Skin Exam: Clear, Warm, Dry, Intact, Normal Turgor Extremeties Extremities Exam: No Edema Neurologic Neuro Exam: Alert, Awake, Oriented, Speech Clear Psychiatric Psych Exam: Appropriate Responses Assessment/Plan Assessment/Plan ASSESSMENT AND PLAN 1. This is 51-year-old female who came to the ER diagnosed with Generalized weakness, most likely secondary to hyponatremia and hypokalemia. The patient's sodium and potassium have improved. Nephrology, has seen the patient. Per nephrology on sodium chloride pill with fluid restriction. 2. Mass-like consolidative involving the left upper lobe with metastatic involvement of the liver and mediastinal lymph nodes. hepatic lesion is percutaneous accessible for biopsy. pulmonology and oncology input noted metastatic work up noted CT Abdomen and pelvis shows multiple hepatic lesion and lumber spine lesion consistant with metastasis ...d/w Patient S/P CT Guided biopsy. Report shows small cell lung cancer. s/p Port Placement..... MRI of Brain discussed with patient. no metastasis. The patient was advised to quit smoking. She has been smoking since the age of 11. 3. History of smoking. Patient advised to quit. 4. Hypertension. Continue home medication. 5. History of anxiety. Continue home medication. 6. Diarrhea checking stool study...better. 7. Hypokalemia resolved. We are going to manage the patient on a daily basis and make recommendations on a daily basis. Check CBC with diff CMP in AM. Discussed Condition with: Patient Uli Serrano MD Oct 19, 2016 08:16
[2016-10-19] MEDS: clonazePAM 1 MG TAB PO SCH ×2 (08:27→21:28)
[2016-10-19] MEDS: FUROSEMIDE 20 MG TAB PO SCH ×2 (08:27→18:10)
[2016-10-19] MEDS: LISINOPRIL 10 MG TAB PO SCH (08:27)
[2016-10-19] MEDS: amLODIPine BESYLATE 5 MG TAB PO SCH (08:27)
[2016-10-19] MEDS: SODIUM CHLORIDE 1 GRAM TAB PO SCH ×3 (08:27→18:10)
[2016-10-19] MEDS: POTASSIUM CHLORIDE 10 MEQ CONTROLLED RELEASE TAB PO SCH (08:27)
[2016-10-19] MEDS: predniSONE 20 MG TAB PO SCH (08:27)
[2016-10-19] MEDS: SODIUM CHLORIDE 0.9% FLUSH 5 ML FLUSH FLUSH SCH ×2 (08:28→21:32)
[2016-10-19] MEDS: CEFUROXIME AXETIL 500 MG TAB PO SCH ×2 (08:28→21:28)
[2016-10-19] MEDS: BUDESONIDE-FORMOTEROL 160/4.5 MCG INHALER INH SCH ×2 (08:28→21:00)
[2016-10-19] MEDS: LORATADINE 10 MG TAB PO SCH (08:28)
[2016-10-19] MEDS ORDERED: FLUCONAZOLE 100 MG TAB PO ONE (12:15)
[2016-10-19] MEDS: ACETAMINOPHEN 325 MG TAB PO PRN ×2 (12:51→19:47)
[2016-10-19] MEDS ORDERED: TOLVAPTAN 15 MG TAB PO STA (15:37)
--- NOTE | 2016-10-19 19:19 | HHI.PR ---
Subjective Remarks Wants to drink more water. Sodium [id number]. No fever. CT biopsy of liver shows Small cell Carcinoma.Had Port placed. Off o2 Oncology on Board for chemo. Objective Vital Signs Date Time Temp Pulse Resp B/P Pulse Ox O2 Delivery O2 Flow Rate FiO2 10/19/16 12:40 96.7 76 15 124/83 97 10/19/16 08:00 96.8 72 16 143/84 100 10/19/16 04:00 97.8 69 16 140/77 96 10/19/16 01:33 149/79 10/19/16 00:30 96.8 68 16 172/81 97 10/18/16 20:45 96.9 81 17 189/102 99 I/O 10/18/16 10/18/16 10/18/16 10/19/16 10/19/16 10/19/16 07:00 15:00 23:00 07:00 15:00 23:00 Intake Total 240 ml 1160 ml 240 ml 200 ml Balance 240 ml 1160 ml 240 ml 200 ml Intake Oral 240 ml 1160 ml 240 ml 200 ml # Voids 1 4 1 1 # Bowel Movements 0 2 0 0 Result Diagram: 10/19/1652810/19/16528 Objective Remarks This thinly built middle-aged white female is alert, pale and in no acute distress. HEENT: Head normocephalic. Pupils reactive. Tongue is moist. Nasal mucosa erythematous. Throat is clear NECK: Supple. No lymphadenopathy. Trachea midline. CHEST: Equal movements with distant breath sounds with occasional wheezes, bilaterally .Right chest with Port. HEART: The heart sounds are irregular. S1-S2 with no murmur. No S3 gallop. ABDOMEN: Soft, protuberant, no masses, no organomegaly. Liver is just felt below the costal margin. Bowel sounds are active. EXTREMITIES: No edema, no lesions. No calf tenderness. Reflexes are normal. NEUROLOGIC: There are no gross motor deficits. RECTAL: Deferred. SKIN: No lesions. Assessment and Plan Assessment and Plan IMPRESSION 1. COPD with chronic bronchitis and acute exacerbation. 2. Left upper lobe lung density, possible obstructive pneumonia with malignancy. 3. Liver lesions, Metastatic Small cell Ca. Plan 1. Fluid restriction 2. Nebs qid, duoneb. 3. CXR in am 4. Prednisone 10 mg daily. 5. Chemo this week per Oncology 6.ceftin 500 mg bid X 7 days. Ronel Sparrow MD Oct 19, 2016 19:19
--- NOTE | 2016-10-19 23:36 | PD.ONC.PN ---
Subjective Subjective Remarks port placed today family present bedside had numerous question regarding diagnosis/prognosis and treatment no cough/congestion/no fevers having diarrhea d/w rn Objective Data Date Time Temp Pulse Resp B/P Pulse Ox O2 Delivery O2 Flow Rate FiO2 10/19/16 20:00 98.7 86 16 88/69 98 10/19/16 19:52 77 10/19/16 16:00 97.6 82 16 92/69 100 10/19/16 12:40 96.7 76 15 124/83 97 10/19/16 08:00 96.8 72 16 143/84 100 10/19/16 04:00 97.8 69 16 140/77 96 10/19/16 01:33 149/79 10/19/16 00:30 96.8 68 16 172/81 97 10/19/16 10/19/16 10/19/16 07:00 15:00 23:00 Intake Total 200 ml 240 ml Balance 200 ml 240 ml Result Diagram: 10/19/16 0529 10/19/16 0529 Laboratory Results Laboratory Tests Test 10/19/16 05:29 White Blood Count 12.9 TH/MM3 Red Blood Count 3.40 MIL/MM3 Hemoglobin 9.6 GM/DL Hematocrit 28.7 % Mean Corpuscular Volume 84.4 FL Mean Corpuscular Hemoglobin 28.2 PG Mean Corpuscular Hemoglobin 33.4 % Concent Red Cell Distribution Width 15.3 % Platelet Count 330 TH/MM3 Mean Platelet Volume 9.4 FL Neutrophils (%) (Auto) 54.3 % Lymphocytes (%) (Auto) 35.3 % Monocytes (%) (Auto) 8.6 % Eosinophils (%) (Auto) 0.7 % Basophils (%) (Auto) 1.1 % Neutrophils # (Auto) 7.0 TH/MM3 Lymphocytes # (Auto) 4.6 TH/MM3 Monocytes # (Auto) 1.1 TH/MM3 Eosinophils # (Auto) 0.1 TH/MM3 Basophils # (Auto) 0.1 TH/MM3 CBC Comment DIFF FINAL Differential Comment Sodium Level 122 MEQ/L Potassium Level 3.7 MEQ/L Chloride Level 85 MEQ/L Carbon Dioxide Level 27.8 MEQ/L Anion Gap 9 MEQ/L Blood Urea Nitrogen 4 MG/DL Creatinine 0.57 MG/DL Estimat Glomerular Filtration 111 ML/MIN Rate Random Glucose 71 MG/DL Calcium Level 8.8 MG/DL Total Bilirubin 0.3 MG/DL Aspartate Amino Transf 21 U/L (AST/SGOT) Alanine Aminotransferase 19 U/L (ALT/SGPT) Alkaline Phosphatase 90 U/L Total Protein 6.8 GM/DL Albumin 3.2 GM/DL Administered Medications Medications (Trade) Dose Ordered Sig/Ermias Route PRN Reason Start Time Stop Time Status Last Admin Dose Admin Ondansetron HCl (Zofran Inj) 4 mg Q6H PRN IV NAUSEA OR VOMITING 10/11/16 17:00 10/19/16 16:22 IV Flush (NS Flush) 2 ml UNSCH PRN FLUSH FLUSH AFTER USING IV ACCESS 10/11/16 17:30 10/12/16 03:30 IV Flush (NS Flush) 2 ml BID FLUSH 10/11/16 21:00 10/19/16 21:32 Acetaminophen 650 mg 650 mg Q4H PRN PO TEMP > 100.4 10/11/16 17:30 10/19/16 19:47 Dextrose (D5W 1000 ml Inj) 400 ml @ 200 mls/hr BOLUS PRN IV SEE COMMENTS 10/12/16 00:15 10/12/16 03:29 Clonazepam (KlonoPIN) 1 mg BID PO 10/12/16 14:15 10/19/16 21:28 Lisinopril (Prinivil) 10 mg DAILY PO 10/12/16 14:30 10/19/16 08:27 Loratadine (Claritin) 10 mg DAILY PO 10/12/16 14:15 10/19/16 08:28 Budesonide/ Formoterol Fumarate (Symbicort 160-4.5 Inh) 1 puff Q12HR INH 10/12/16 21:00 10/15/16 08:29 Prednisone (Deltasone) 20 mg DAILY PO 10/15/16 09:00 10/19/16 08:27 Sodium Chloride (Sodium Chloride) 2 gm TID PO 10/14/16 21:30 10/19/16 18:10 Furosemide (Lasix) 10 mg BID@09,18 PO 10/16/16 09:00 10/19/16 18:10 Potassium Chloride (KCl) 10 meq DAILY PO 10/15/16 15:00 10/19/16 08:27 Cefuroxime Axetil (Ceftin) 500 mg Q12HR PO 10/17/16 21:00 10/19/16 21:28 Clonidine (Catapres) 0.1 mg Q6H PRN PO FOR SBP > 180 10/18/16 06:00 10/18/16 20:49 Amlodipine Besylate (Norvasc) 5 mg DAILY PO 10/19/16 09:00 10/19/16 08:27 Hydromorphone HCl (Dilaudid Pf Inj) 0.5 mg Q3H PRN IV BREAKTHROUGH PAIN 10/18/16 23:30 10/19/16 00:47 Objective Remarks GENERAL: nad SKIN: Warm and dry. NECK: Supple, trachea midline. No JVD or lymphadenopathy. LYMPHATIC: No adenopathy. CARDIOVASCULAR: Regular rate and rhythm without murmurs. RESPIRATORY: Breath sounds equal bilaterally. No accessory muscle use. GASTROINTESTINAL: Abdomen soft, non-tender, nondistended. EXTREMITIES: No cyanosis, or edema. PORT site covered with dressing Assessment/Plan Problem List: (1) SCLC (small cell lung carcinoma) Status: Acute Plan: --CT guided lung biopsy shows small cell (oat cell) carcinoma --plan to place port and start chemotherapy inpatient (2) Normocytic anemia Status: Acute Plan: --monitor hgb --B12 WNL --low iron (3) Hyponatremia Status: Acute Plan: --on sodium tablets 2gm TID --on Samsca + diuretics --nephrology following (4) SIADH (syndrome of inappropriate ADH production) Status: Acute (5) Tobacco abuse Status: Acute Assessment 51y/o female with extensive stage small cell lung cancer. Plan 1. Extensive Stage Small Cell Carcinoma - will need systemic chemotherapy - Due to delay in establishing o/p follow-up at the oncology clinic and persistent SIADH and risk of worsening will initiate first treatment in patient - Cisplatin and Etoposide. D1, D2 and D3 - d/w patient and family and answered questions - agreeable to proceeds discussed risks/side-effects and benefits - Port placed - Transfer to oncology floor. - Plan for treatment in AM 2. SIADH--sodium worsening - sodium tabs and free water restriction - Definitive treatment in chemotherapy 30 minutes spent with patient Aakash Gama MD Oct 19, 2016 23:36
[2016-10-20] VITALS (8 sets, daily range): BP systolic 88–122; BP diastolic 64–80; PULSE 76–103; RESP 16–19; TEMP 96.2–99.1; O2SAT 95–99
[2016-10-20 02:21] LABS: C. DIFF EPI 027 PRESUMPTIVE NEGATIVE (NEGATIVE); C. DIFF TOXIN PCR NEGATIVE (NEGATIVE)
[2016-10-20] MEDS: GABAPENTIN 100 MG CAP PO SCH ×5 (05:40→22:35)
[2016-10-20] MEDS: ACETAMINOPHEN 325 MG TAB PO PRN ×2 (05:40→15:09)
[2016-10-20 05:51] LABS: AUTOMATED NEUTROPHIL # 6.7 TH/MM3 (1.8-7.7); BASOPHIL # 0.1 TH/MM3 (0-0.2); BASOPHIL % 0.5 % (0.0-2.0); EOSINOPHIL # 0.1 TH/MM3 (0-0.4); EOSINOPHIL % 0.5 % (0.0-4.0); HEMO FLAGS DIFF FINAL; LYMPH % 30.3 % (9.0-44.0); LYMPHOCYTE # 3.6 TH/MM3 (1.0-4.8); MEAN CELL VOLUME 84.4 FL (80.0-100.0); MEAN CORPUSCULAR HEMOGLOBIN 28.3 PG (27.0-34.0); MEAN CORPUSCULAR HGB CONC 33.5 % (32.0-36.0); MONO % 11.7 % (0.0-8.0); PLATELET COUNT 368 TH/MM3 (150-450); RED BLOOD COUNT 3.68 MIL/MM3 (4.00-5.30); RED CELL DISTRIBUTION WIDTH 15.8 % (11.6-17.2); WHITE BLOOD COUNT 11.8 TH/MM3 (4.0-11.0)
[2016-10-20 06:08] LABS: ALT (GPT) 23 U/L (10-53); ANION GAP 10 MEQ/L (5-15); AST (GOT) 27 U/L (15-37); BICARBONATE 27.3 MEQ/L (21.0-32.0); BLOOD UREA NITROGEN 8 MG/DL (7-18); CHLORIDE 92 MEQ/L (98-107); GLOMERULAR FILTRATION RATE 94 ML/MIN (>89); POTASSIUM 3.6 MEQ/L (3.5-5.1); SODIUM (NA) 129 MEQ/L (136-145)
[2016-10-20 06:10] LABS: ALKALINE PHOSPHATASE 99 U/L (45-117); TOTAL BILIRUBIN ADULT 0.2 MG/DL (0.2-1.0)
[2016-10-20] MEDS: FUROSEMIDE 20 MG TAB PO SCH ×2 (09:00→18:00)
[2016-10-20] MEDS: SODIUM CHLORIDE 0.9% FLUSH 5 ML FLUSH FLUSH SCH ×2 (09:00→22:36)
[2016-10-20] MEDS: LISINOPRIL 10 MG TAB PO SCH (09:00)
[2016-10-20] MEDS: amLODIPine BESYLATE 5 MG TAB PO SCH (09:00)
[2016-10-20] MEDS: BUDESONIDE-FORMOTEROL 160/4.5 MCG INHALER INH SCH ×2 (09:00→21:00)
--- NOTE | 2016-10-20 10:08 | HHI.PR ---
Subjective History of Present Illness Patient have diarrhea checking stool studies...better.. sodium still low 129 Nephrology managing.. Pulmonary and oncology input noted s/p CT Guided biopsy report shows small cell cancer .. metastatic work up noted.. s/p Port Placement. getting chemotherapy soon.. D/W SARAH Moreno at bed side. Review of Systems Constitutional Constitutional: Fatigue, Weakness Vitals/Results Intake & Output 10/19/16 10/19/16 10/20/16 15:00 23:00 07:00 Intake Total 240 ml 640 ml 240 ml Balance 240 ml 640 ml 240 ml Intake Oral 240 ml 640 ml 240 ml # Voids 3 5 2 # Bowel Movements 1 5 0 Vital Signs Vital Signs Date Time Temp Pulse Resp B/P Pulse Ox O2 Delivery O2 Flow Rate FiO2 10/20/16 04:51 96.2 80 16 100/70 96 10/20/16 00:00 96.7 80 17 100/69 98 10/19/16 20:00 98.7 86 16 88/69 98 10/19/16 19:52 77 10/19/16 16:00 97.6 82 16 92/69 100 10/19/16 12:40 96.7 76 15 124/83 97 CBC/BMP: 10/20/16 0441 10/20/16 0441 Lab Results Laboratory Tests Test 10/20/16 10/20/16 01:20 04:41 Stool C. difficile Toxin (PCR) NEGATIVE Stl C. difficile Toxin PRESUMPTIVE Epiderm 027 NEGATIVE White Blood Count 11.8 TH/MM3 Red Blood Count 3.68 MIL/MM3 Hemoglobin 10.4 GM/DL Hematocrit 31.0 % Mean Corpuscular Volume 84.4 FL Mean Corpuscular Hemoglobin 28.3 PG Mean Corpuscular Hemoglobin 33.5 % Concent Red Cell Distribution Width 15.8 % Platelet Count 368 TH/MM3 Mean Platelet Volume 9.0 FL Neutrophils (%) (Auto) 57.0 % Lymphocytes (%) (Auto) 30.3 % Monocytes (%) (Auto) 11.7 % Eosinophils (%) (Auto) 0.5 % Basophils (%) (Auto) 0.5 % Neutrophils # (Auto) 6.7 TH/MM3 Lymphocytes # (Auto) 3.6 TH/MM3 Monocytes # (Auto) 1.4 TH/MM3 Eosinophils # (Auto) 0.1 TH/MM3 Basophils # (Auto) 0.1 TH/MM3 CBC Comment DIFF FINAL Differential Comment Sodium Level 129 MEQ/L Potassium Level 3.6 MEQ/L Chloride Level 92 MEQ/L Carbon Dioxide Level 27.3 MEQ/L Anion Gap 10 MEQ/L Blood Urea Nitrogen 8 MG/DL Creatinine 0.66 MG/DL Estimat Glomerular Filtration 94 ML/MIN Rate Random Glucose 74 MG/DL Calcium Level 9.2 MG/DL Total Bilirubin 0.2 MG/DL Aspartate Amino Transf 27 U/L (AST/SGOT) Alanine Aminotransferase 23 U/L (ALT/SGPT) Alkaline Phosphatase 99 U/L Total Protein 6.9 GM/DL Albumin 3.2 GM/DL Physical Exam General General Appearance: No Acute Distress, Comfortable Eyes Eye Exam: Pupils Equal, Pupils Reactive, Sclera White Ears & Nose Ears & Nose Exam: Nasal Mucosa [place], Septum Midline Throat Throat Exam: Oral Mucosa [place] & Moist Pulmonary Resp Exam: Clear Bilaterally, Breath Sounds Equal Cardiology CV Exam: Regular, Normal Sinus Rhythm Gastrointestinal/Abdomen GI Exam: Soft, Non-Tender, Bowel Sounds Present Musculoskeletal MS Exam: Joints Intact, Normal Tone Integumentary Skin Exam: Clear, Warm, Dry, Intact, Normal Turgor Extremeties Extremities Exam: No Edema Neurologic Neuro Exam: Alert, Awake, Oriented, Speech Clear Psychiatric Psych Exam: Appropriate Responses Assessment/Plan Assessment/Plan ASSESSMENT AND PLAN 1. This is 51-year-old female who came to the ER diagnosed with Generalized weakness, most likely secondary to hyponatremia and hypokalemia. The patient's sodium and potassium have improved. Nephrology, has seen the patient. Per nephrology on sodium chloride pill with fluid restriction. 2. Mass-like consolidative involving the left upper lobe with metastatic involvement of the liver and mediastinal lymph nodes. hepatic lesion is percutaneous accessible for biopsy. pulmonology and oncology input noted metastatic work up noted CT Abdomen and pelvis shows multiple hepatic lesion and lumber spine lesion consistant with metastasis. MRI of Brain discussed with patient. no metastasis in brain.....d/w Patient. S/P CT Guided biopsy. Report shows small cell lung cancer. s/p Port Placement...getting chemotherapy soon. The patient was advised to quit smoking. She has been smoking since the age of 11. 3. History of smoking. Patient advised to quit. 4. Hypertension. Continue home medication. 5. History of anxiety. Continue home medication. 6. Diarrhea checking stool study...better. 7. Hypokalemia resolved. We are going to manage the patient on a daily basis and make recommendations on a daily basis. Check CBC with diff CMP in AM. Discussed Condition with: Patient Uli Serrano MD Oct 20, 2016 10:08
[2016-10-20] MEDS: predniSONE 20 MG TAB PO SCH (11:16)
[2016-10-20] MEDS: clonazePAM 1 MG TAB PO SCH ×2 (11:16→22:35)
[2016-10-20] MEDS: SODIUM CHLORIDE 1 GRAM TAB PO SCH ×3 (11:16→18:26)
[2016-10-20] MEDS: POTASSIUM CHLORIDE 10 MEQ CONTROLLED RELEASE TAB PO SCH (11:17)
[2016-10-20] MEDS: LORATADINE 10 MG TAB PO SCH (11:18)
[2016-10-20] MEDS: CEFUROXIME AXETIL 500 MG TAB PO SCH ×2 (11:18→22:35)
[2016-10-20] MEDS ORDERED: SODIUM CHLORID 0.9% 500 ML INJ 500 ML IV SCH (16:00)
[2016-10-20] MEDS ORDERED: DEXAMETHASONE INJ 20 MG in SODIUM CHLORIDE 0.9% INJ 50 ML IV ONE (16:00)
[2016-10-20] MEDS ORDERED: GRANISETRON HCL 1 MG/ML VIAL IV ONE (16:00)
[2016-10-20] MEDS ORDERED: FUROSEMIDE 20 MG/2 ML VIAL IV PUSH ONE (16:00)
[2016-10-20] MEDS ORDERED: [UNRECOGNIZED DRUG - OTHER] IV ONE (17:00)
[2016-10-20] MEDS ORDERED: CISPLATIN IV ONE (17:00)
[2016-10-20] MEDS ORDERED: POTASSIUM CHLORIDE IV ONE (17:00)
[2016-10-20] MEDS ORDERED: MAGNESIUM SULFATE IV ONE (17:00)
[2016-10-20] MEDS ORDERED: SODIUM CHLOR 0.9% 1000 ML INJ 1,000 ML IV SCH (18:00)
--- NOTE | 2016-10-20 19:02 | HHI.PR ---
Subjective Remarks Wants to drink more water. Sodium [id number] Chemotherapy now. No chest pain. Objective Vital Signs Date Time Temp Pulse Resp B/P Pulse Ox O2 Delivery O2 Flow Rate FiO2 10/20/16 16:00 99.1 85 18 106/75 98 10/20/16 12:00 98.0 95 19 93/64 98 10/20/16 08:00 97.0 76 18 88/67 98 10/20/16 04:51 96.2 80 16 100/70 96 10/20/16 00:00 96.7 80 17 100/69 98 10/19/16 20:00 98.7 86 16 88/69 98 10/19/16 19:52 77 I/O 10/19/16 10/19/16 10/19/16 10/20/16 10/20/16 10/20/16 07:00 15:00 23:00 07:00 15:00 23:00 Intake Total 200 ml 240 ml 640 ml 240 ml 800 ml Balance 200 ml 240 ml 640 ml 240 ml 800 ml Intake Oral 200 ml 240 ml 640 ml 240 ml 800 ml # Voids 1 3 5 2 3 # Bowel Movements 0 1 5 0 2 Result Diagram: 10/20/1644010/20/16 0441 Objective Remarks This thinly built middle-aged white female is alert, pale and in no acute distress. HEENT: Head normocephalic. Pupils reactive. Tongue is moist. Nasal mucosa clear. Throat is clear NECK: Supple. No lymphadenopathy. Trachea midline. CHEST: Equal movements with distant breath sounds with occasional wheezes, bilaterally .Right chest with Port. HEART: The heart sounds are irregular. S1-S2 with no murmur. No S3 gallop. ABDOMEN: Soft, protuberant, no masses, no organomegaly. Liver is just felt below the costal margin. Bowel sounds are active. EXTREMITIES: No edema, no lesions. No calf tenderness. Reflexes are normal. NEUROLOGIC: There are no gross motor deficits. RECTAL: Deferred. SKIN: No lesions. Assessment and Plan Assessment and Plan IMPRESSION 1. COPD with chronic bronchitis and acute exacerbation. 2. Left upper lobe lung density, possible obstructive pneumonia with malignancy. 3. Liver lesions, Metastatic Small cell Ca. Plan 1. Fluid restriction 2. Nebs qid, duoneb. 3. CBC,BMP 4. Prednisone 10 mg daily. 5. Chemo this week per Oncology 6.ceftin 500 mg bid X 7 days. Ronel Sparrow MD Oct 20, 2016 19:02
[2016-10-20] MEDS: ETOPOSIDE IV SCH (22:15)
[2016-10-20] MEDS: NS IV SCH (22:15)
--- NOTE | 2016-10-20 23:14 | PD.ONC.PN ---
Subjective Subjective Remarks seen earlier in the day sleepy/had questions about treatment will proceed with treatment today. Cisplatin and [employer]-16 for extensive stage small cell carcinoma. D# 1 awaiting transfer to oncology floor. d/w rn d/w charge nurse on oncology floor chemotherapy orders signed Objective Data Date Time Temp Pulse Resp B/P Pulse Ox O2 Delivery O2 Flow Rate FiO2 10/20/16 20:00 97.7 97 16 102/69 99 10/20/16 16:00 99.1 85 18 106/75 98 10/20/16 12:00 98.0 95 19 93/64 98 10/20/16 08:00 97.0 76 18 88/67 98 10/20/16 04:51 96.2 80 16 100/70 96 10/20/16 00:00 96.7 80 17 100/69 98 10/20/16 10/20/16 10/20/16 07:00 15:00 23:00 Intake Total 240 ml 800 ml Balance 240 ml 800 ml Result Diagram: 10/20/16 0441 10/20/16 0441 Laboratory Results Laboratory Tests Test 10/20/16 10/20/16 01:20 04:41 Stool C. difficile Toxin (PCR) NEGATIVE Stl C. difficile Toxin PRESUMPTIVE Epiderm 027 NEGATIVE White Blood Count 11.8 TH/MM3 Red Blood Count 3.68 MIL/MM3 Hemoglobin 10.4 GM/DL Hematocrit 31.0 % Mean Corpuscular Volume 84.4 FL Mean Corpuscular Hemoglobin 28.3 PG Mean Corpuscular Hemoglobin 33.5 % Concent Red Cell Distribution Width 15.8 % Platelet Count 368 TH/MM3 Mean Platelet Volume 9.0 FL Neutrophils (%) (Auto) 57.0 % Lymphocytes (%) (Auto) 30.3 % Monocytes (%) (Auto) 11.7 % Eosinophils (%) (Auto) 0.5 % Basophils (%) (Auto) 0.5 % Neutrophils # (Auto) 6.7 TH/MM3 Lymphocytes # (Auto) 3.6 TH/MM3 Monocytes # (Auto) 1.4 TH/MM3 Eosinophils # (Auto) 0.1 TH/MM3 Basophils # (Auto) 0.1 TH/MM3 CBC Comment DIFF FINAL Differential Comment Sodium Level 129 MEQ/L Potassium Level 3.6 MEQ/L Chloride Level 92 MEQ/L Carbon Dioxide Level 27.3 MEQ/L Anion Gap 10 MEQ/L Blood Urea Nitrogen 8 MG/DL Creatinine 0.66 MG/DL Estimat Glomerular Filtration 94 ML/MIN Rate Random Glucose 74 MG/DL Calcium Level 9.2 MG/DL Total Bilirubin 0.2 MG/DL Aspartate Amino Transf 27 U/L (AST/SGOT) Alanine Aminotransferase 23 U/L (ALT/SGPT) Alkaline Phosphatase 99 U/L Total Protein 6.9 GM/DL Albumin 3.2 GM/DL Administered Medications Medications (Trade) Dose Ordered Sig/Ermias Route PRN Reason Start Time Stop Time Status Last Admin Dose Admin Ondansetron HCl (Zofran Inj) 4 mg Q6H PRN IV NAUSEA OR VOMITING 10/11/16 17:00 10/19/16 16:22 IV Flush (NS Flush) 2 ml UNSCH PRN FLUSH FLUSH AFTER USING IV ACCESS 10/11/16 17:30 10/12/16 03:30 IV Flush (NS Flush) 2 ml BID FLUSH 10/11/16 21:00 10/20/16 22:36 Acetaminophen 650 mg 650 mg Q4H PRN PO TEMP > 100.4 10/11/16 17:30 10/20/16 15:09 Dextrose (D5W 1000 ml Inj) 400 ml @ 200 mls/hr BOLUS PRN IV SEE COMMENTS 10/12/16 00:15 10/12/16 03:29 Clonazepam (KlonoPIN) 1 mg BID PO 10/12/16 14:15 10/20/16 22:35 Lisinopril (Prinivil) 10 mg DAILY PO 10/12/16 14:30 10/19/16 08:27 Loratadine (Claritin) 10 mg DAILY PO 10/12/16 14:15 10/20/16 11:18 Budesonide/ Formoterol Fumarate (Symbicort 160-4.5 Inh) 1 puff Q12HR INH 10/12/16 21:00 10/15/16 08:29 Sodium Chloride (Sodium Chloride) 2 gm TID PO 10/14/16 21:30 10/20/16 18:26 Furosemide (Lasix) 10 mg BID@09,18 PO 10/16/16 09:00 10/19/16 18:10 Potassium Chloride (KCl) 10 meq DAILY PO 10/15/16 15:00 10/20/16 11:17 Cefuroxime Axetil (Ceftin) 500 mg Q12HR PO 10/17/16 21:00 10/20/16 22:35 Clonidine (Catapres) 0.1 mg Q6H PRN PO FOR SBP > 180 10/18/16 06:00 10/18/16 20:49 Amlodipine Besylate (Norvasc) 5 mg DAILY PO 10/19/16 09:00 10/19/16 08:27 Hydromorphone HCl 0.5 mg 0.5 mg Q3H PRN IV BREAKTHROUGH PAIN 10/18/16 23:30 10/19/16 00:47 Etoposide/Sodium Chloride (Vepesid Inj/NS 500 ml ([place] Bag) Inj) 507.15 ml @ 507.15 mls/hr Q24H IV 10/20/16 18:00 10/22/16 18:59 10/20/16 22:15 Objective Remarks GENERAL: thin/cachectic SKIN: Warm and dry. NECK: Supple, trachea midline. No JVD or lymphadenopathy. LYMPHATIC: No adenopathy. CARDIOVASCULAR: Regular rate and rhythm without murmurs. RESPIRATORY: Breath sounds equal bilaterally. No accessory muscle use. GASTROINTESTINAL: Abdomen soft, non-tender, nondistended. EXTREMITIES: No cyanosis, or edema. Assessment/Plan Problem List: (1) SCLC (small cell lung carcinoma) Status: Acute Plan: --CT guided lung biopsy shows small cell (oat cell) carcinoma --plan to place port and start chemotherapy inpatient (2) Normocytic anemia Status: Acute Plan: --monitor hgb --B12 WNL --low iron (3) Hyponatremia Status: Acute Plan: --on sodium tablets 2gm TID --on Samsca + diuretics --nephrology following (4) SIADH (syndrome of inappropriate ADH production) Status: Acute (5) Tobacco abuse Status: Acute Assessment 51y/o female with extensive stage small cell lung cancer. Plan 1. Extensive Stage Small Cell Carcinoma - Due to delay in establishing o/p follow-up at the oncology clinic and persistent SIADH and risk of worsening, will initiate first treatment in patient - Cisplatin and Etoposide. D1, D2 and D3 today - Transfer to oncology floor. - D/C telemetry 2. SIADH--sodium worsening - sodium tabs and free water restriction - Definitive treatment is chemotherapy 3. Nausea prophylaxis - premeds with chemotherapy Post chemo IV fluids at 75 cc/hr approximately 30 minutes spent speaking with patient and coordination of care 30 minutes spent with patient Aakash Gama MD Oct 20, 2016 23:14
[2016-10-21] VITALS (10 sets, daily range): BP systolic 136–160; BP diastolic 84–99; PULSE 84–109; RESP 16–19; TEMP 95.9–97.1; O2SAT 95–100
[2016-10-21] MEDS: ACETAMINOPHEN 325 MG TAB PO PRN ×3 (00:44→18:53)
[2016-10-21] MEDS: GABAPENTIN 100 MG CAP PO SCH ×5 (05:07→20:22)
[2016-10-21 05:34] LABS: AUTOMATED NEUTROPHIL # 11.6 TH/MM3 (1.8-7.7); BASOPHIL % 0.3 % (0.0-2.0); HEMATOCRIT 29.7 % (35.0-46.0); HEMO FLAGS DIFF FINAL; LYMPH % 4.9 % (9.0-44.0); LYMPHOCYTE # 0.6 TH/MM3 (1.0-4.8); MEAN CELL VOLUME 85.1 FL (80.0-100.0); MEAN CORPUSCULAR HEMOGLOBIN 28.4 PG (27.0-34.0); MEAN CORPUSCULAR HGB CONC 33.3 % (32.0-36.0); NEUT % 90.8 % (16.0-70.0); PLATELET COUNT 383 TH/MM3 (150-450); RED BLOOD COUNT 3.49 MIL/MM3 (4.00-5.30); RED CELL DISTRIBUTION WIDTH 15.8 % (11.6-17.2); WHITE BLOOD COUNT 12.8 TH/MM3 (4.0-11.0)
[2016-10-21 06:11] LABS: ALKALINE PHOSPHATASE 105 U/L (45-117); ALT (GPT) 31 U/L (10-53); ANION GAP 11 MEQ/L (5-15); AST (GOT) 27 U/L (15-37); BICARBONATE 23.3 MEQ/L (21.0-32.0); BLOOD UREA NITROGEN 6 MG/DL (7-18); CHLORIDE 102 MEQ/L (98-107); GLOMERULAR FILTRATION RATE 92 ML/MIN (>89); POTASSIUM 3.7 MEQ/L (3.5-5.1); SODIUM (NA) 136 MEQ/L (136-145); TOTAL BILIRUBIN ADULT 0.5 MG/DL (0.2-1.0)
[2016-10-21] MEDS: SODIUM CHLORIDE 0.9% FLUSH 5 ML FLUSH FLUSH SCH ×2 (09:00→20:22)
[2016-10-21] MEDS: BUDESONIDE-FORMOTEROL 160/4.5 MCG INHALER INH SCH ×2 (09:00→20:22)
[2016-10-21] MEDS: PROCHLORPERAZINE MALEATE 10 MG TAB PO SCH (09:56)
[2016-10-21] MEDS: LORATADINE 10 MG TAB PO SCH (09:56)
[2016-10-21] MEDS: CEFUROXIME AXETIL 500 MG TAB PO SCH ×2 (09:56→20:22)
[2016-10-21] MEDS: predniSONE 10 MG TAB PO SCH (09:56)
[2016-10-21] MEDS: LISINOPRIL 10 MG TAB PO SCH (09:56)
[2016-10-21] MEDS: clonazePAM 1 MG TAB PO SCH ×2 (09:56→20:22)
[2016-10-21] MEDS: POTASSIUM CHLORIDE 10 MEQ CONTROLLED RELEASE TAB PO SCH (09:57)
[2016-10-21] MEDS: SODIUM CHLORIDE 1 GRAM TAB PO SCH ×3 (09:57→18:52)
[2016-10-21] MEDS: FUROSEMIDE 20 MG TAB PO SCH ×2 (09:57→18:53)
[2016-10-21] MEDS: amLODIPine BESYLATE 5 MG TAB PO SCH (09:57)
--- NOTE | 2016-10-21 11:17 | PD.ONC.PN ---
Subjective Subjective Remarks Afebrile overnight. Patient tolerated chemotherapy yesterday. She tells me she is very glad to have the telemetry off and that she was able to wash from the waist down yesterday. She is still having some loose bowel movements, which were causing some pain in her rectum. She is having trouble sleeping at night and would like to try something to help her sleep. Objective Data Date Time Temp Pulse Resp B/P Pulse Ox O2 Delivery O2 Flow Rate FiO2 10/21/16 09:40 95 10/21/16 08:00 97.1 108 18 144/85 96 10/21/16 04:00 95.9 100 18 155/99 100 10/21/16 00:00 96.7 90 16 140/90 99 10/20/16 23:14 103 10/20/16 20:20 97.7 89 18 122/80 95 10/20/16 20:00 97.7 97 16 102/69 99 10/20/16 16:00 99.1 85 18 106/75 98 10/20/16 12:00 98.0 95 19 93/64 98 10/21/16 10/21/16 10/21/16 07:00 15:00 23:00 Intake Total 670 ml Balance 670 ml Result Diagram: 10/21/16 0510 10/21/16 0510 Laboratory Results Laboratory Tests Test 10/21/16 05:10 White Blood Count 12.8 TH/MM3 Red Blood Count 3.49 MIL/MM3 Hemoglobin 9.9 GM/DL Hematocrit 29.7 % Mean Corpuscular Volume 85.1 FL Mean Corpuscular Hemoglobin 28.4 PG Mean Corpuscular Hemoglobin 33.3 % Concent Red Cell Distribution Width 15.8 % Platelet Count 383 TH/MM3 Mean Platelet Volume 8.6 FL Neutrophils (%) (Auto) 90.8 % Lymphocytes (%) (Auto) 4.9 % Monocytes (%) (Auto) 4.0 % Eosinophils (%) (Auto) 0.0 % Basophils (%) (Auto) 0.3 % Neutrophils # (Auto) 11.6 TH/MM3 Lymphocytes # (Auto) 0.6 TH/MM3 Monocytes # (Auto) 0.5 TH/MM3 Eosinophils # (Auto) 0.0 TH/MM3 Basophils # (Auto) 0.0 TH/MM3 CBC Comment DIFF FINAL Differential Comment Sodium Level 136 MEQ/L Potassium Level 3.7 MEQ/L Chloride Level 102 MEQ/L Carbon Dioxide Level 23.3 MEQ/L Anion Gap 11 MEQ/L Blood Urea Nitrogen 6 MG/DL Creatinine 0.67 MG/DL Estimat Glomerular Filtration 92 ML/MIN Rate Random Glucose 146 MG/DL Calcium Level 8.7 MG/DL Total Bilirubin 0.5 MG/DL Aspartate Amino Transf 27 U/L (AST/SGOT) Alanine Aminotransferase 31 U/L (ALT/SGPT) Alkaline Phosphatase 105 U/L Total Protein 7.3 GM/DL Albumin 3.2 GM/DL Administered Medications Medications (Trade) Dose Ordered Sig/Ermias Route PRN Reason Start Time Stop Time Status Last Admin Dose Admin Ondansetron HCl (Zofran Inj) 4 mg Q6H PRN IV NAUSEA OR VOMITING 10/11/16 17:00 10/19/16 16:22 IV Flush (NS Flush) 2 ml UNSCH PRN FLUSH FLUSH AFTER USING IV ACCESS 10/11/16 17:30 10/12/16 03:30 IV Flush (NS Flush) 2 ml BID FLUSH 10/11/16 21:00 10/20/16 22:36 Acetaminophen 650 mg 650 mg Q4H PRN PO TEMP > 100.4 10/11/16 17:30 10/21/16 05:08 Dextrose (D5W 1000 ml Inj) 400 ml @ 200 mls/hr BOLUS PRN IV SEE COMMENTS 10/12/16 00:15 10/12/16 03:29 Clonazepam (KlonoPIN) 1 mg BID PO 10/12/16 14:15 10/21/16 09:56 Lisinopril (Prinivil) 10 mg DAILY PO 10/12/16 14:30 10/21/16 09:56 Loratadine (Claritin) 10 mg DAILY PO 10/12/16 14:15 10/21/16 09:56 Budesonide/ Formoterol Fumarate (Symbicort 160-4.5 Inh) 1 puff Q12HR INH 10/12/16 21:00 10/15/16 08:29 Sodium Chloride (Sodium Chloride) 2 gm TID PO 10/14/16 21:30 10/21/16 09:57 Furosemide (Lasix) 10 mg BID@,18 PO 10/16/16 09:00 10/21/16 09:57 Potassium Chloride (KCl) 10 meq DAILY PO 10/15/16 15:00 10/21/16 09:57 Clonidine (Catapres) 0.1 mg Q6H PRN PO FOR SBP > 180 10/18/16 06:00 10/18/16 20:49 Amlodipine Besylate (Norvasc) 5 mg DAILY PO 10/19/16 09:00 10/21/16 09:57 Hydromorphone HCl 0.5 mg 0.5 mg Q3H PRN IV BREAKTHROUGH PAIN 10/18/16 23:30 10/19/16 00:47 Etoposide/Sodium Chloride (Vepesid Inj/NS 500 ml ([place] Bag) Inj) 507.15 ml @ 507.15 mls/hr Q24H IV 10/20/16 18:00 10/22/16 18:59 10/20/16 22:15 Prochlorperazine Maleate (Compazine) 10 mg DAILY PO 10/21/16 09:00 10/22/16 09:01 10/21/16 09:56 Prednisone (Deltasone) 10 mg DAILY PO 10/21/16 09:00 10/21/16 09:56 Cefuroxime Axetil (Ceftin) 500 mg Q12HR PO 10/21/16 09:00 10/21/16 09:56 Objective Remarks GENERAL: Middle aged female, sitting up in bed, she is anxious appearing, but otherwise in nad. SKIN: Warm and dry. port in place, right chest wall. peripheral IV, right arm. HEAD: Normocephalic. EYES: No injection or drainage. NECK: Supple, trachea midline. CARDIOVASCULAR: Regular rate and rhythm RESPIRATORY: Breath sounds equal bilaterally. No accessory muscle use. GASTROINTESTINAL: Abdomen soft, non-tender, nondistended. EXTREMITIES: No cyanosis NEUROLOGICAL: No obvious focal deficit. Awake, alert, and oriented x3. 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 --patient approved for follow up in clinic. (2) Normocytic anemia Status: Acute Plan: --monitor hgb --B12 WNL --low iron (3) Hyponatremia Status: Resolved Plan: --treating underlying cause w/ chemotherapy (4) SIADH (syndrome of inappropriate ADH production) Status: Acute (5) Tobacco abuse Status: Acute Assessment 51y/o female with extensive stage small cell lung cancer. Plan 1. proceed with day 2 of chemotherapy today 2. arrange follow up in clinic--November 04--2:45 appointment, 2:15 arrival time. At [facility] office. 3. monitor labs Attending Statement The exam, history, and the medical decision-making described in the above note were completed with the assistance of the mid-level provider. I reviewed and agree with the findings presented. I attest that I had a [id number] encounter with the patient on the same day, and personally performed and documented my assessment and findings in the medical record. on going treatment with cisplatin and etoposide. continue to monitor labs cbc and bmp daily. SIADH stable. free water restriction. Johanna Orozco Oct 21, 2016 11:17 Aakash Gama MD Oct 23, 2016 15:06
--- NOTE | 2016-10-21 13:10 | HHI.PR ---
Subjective History of Present Illness Patient have diarrhea checking stool studies...better.. sodium still low 136 Nephrology managing.. Pulmonary and oncology input noted s/p CT Guided biopsy report shows small cell cancer .. metastatic work up noted.. s/p Port Placement. getting chemotherapy .. D/W SARAH Moreno at bed side. Review of Systems Constitutional Constitutional: Fatigue, Weakness Vitals/Results Intake & Output 10/20/16 10/20/16 10/21/16 15:00 23:00 07:00 Intake Total 1040 ml 670 ml Balance 1040 ml 670 ml Intake Oral 1040 ml 240 ml IV Total 430 ml # Voids 10 1 # Bowel Movements 9 0 Vital Signs Vital Signs Date Time Temp Pulse Resp B/P Pulse Ox O2 Delivery O2 Flow Rate FiO2 10/21/16 12:00 96.6 109 19 136/94 100 10/21/16 09:40 95 10/21/16 08:00 97.1 108 18 144/85 96 10/21/16 04:00 95.9 100 18 155/99 100 10/21/16 00:00 96.7 90 16 140/90 99 10/20/16 23:14 103 10/20/16 20:20 97.7 89 18 122/80 95 10/20/16 20:00 97.7 97 16 102/69 99 10/20/16 16:00 99.1 85 18 106/75 98 CBC/BMP: 10/21/16 0510 10/21/16 0510 Lab Results Laboratory Tests Test 10/21/16 05:10 White Blood Count 12.8 TH/MM3 Red Blood Count 3.49 MIL/MM3 Hemoglobin 9.9 GM/DL Hematocrit 29.7 % Mean Corpuscular Volume 85.1 FL Mean Corpuscular Hemoglobin 28.4 PG Mean Corpuscular Hemoglobin 33.3 % Concent Red Cell Distribution Width 15.8 % Platelet Count 383 TH/MM3 Mean Platelet Volume 8.6 FL Neutrophils (%) (Auto) 90.8 % Lymphocytes (%) (Auto) 4.9 % Monocytes (%) (Auto) 4.0 % Eosinophils (%) (Auto) 0.0 % Basophils (%) (Auto) 0.3 % Neutrophils # (Auto) 11.6 TH/MM3 Lymphocytes # (Auto) 0.6 TH/MM3 Monocytes # (Auto) 0.5 TH/MM3 Eosinophils # (Auto) 0.0 TH/MM3 Basophils # (Auto) 0.0 TH/MM3 CBC Comment DIFF FINAL Differential Comment Sodium Level 136 MEQ/L Potassium Level 3.7 MEQ/L Chloride Level 102 MEQ/L Carbon Dioxide Level 23.3 MEQ/L Anion Gap 11 MEQ/L Blood Urea Nitrogen 6 MG/DL Creatinine 0.67 MG/DL Estimat Glomerular Filtration 92 ML/MIN Rate Random Glucose 146 MG/DL Calcium Level 8.7 MG/DL Total Bilirubin 0.5 MG/DL Aspartate Amino Transf 27 U/L (AST/SGOT) Alanine Aminotransferase 31 U/L (ALT/SGPT) Alkaline Phosphatase 105 U/L Total Protein 7.3 GM/DL Albumin 3.2 GM/DL Physical Exam General General Appearance: No Acute Distress, Comfortable Eyes Eye Exam: Pupils Equal, Pupils Reactive, Sclera White Ears & Nose Ears & Nose Exam: Nasal Mucosa [place], Septum Midline Throat Throat Exam: Oral Mucosa [place] & Moist Pulmonary Resp Exam: Clear Bilaterally, Breath Sounds Equal Cardiology CV Exam: Regular, Normal Sinus Rhythm Gastrointestinal/Abdomen GI Exam: Soft, Non-Tender, Bowel Sounds Present Musculoskeletal MS Exam: Joints Intact, Normal Tone Integumentary Skin Exam: Clear, Warm, Dry, Intact, Normal Turgor Extremeties Extremities Exam: No Edema Neurologic Neuro Exam: Alert, Awake, Oriented, Speech Clear Psychiatric Psych Exam: Appropriate Responses Assessment/Plan Assessment/Plan ASSESSMENT AND PLAN 1. This is 51-year-old female who came to the ER diagnosed with Generalized weakness, most likely secondary to hyponatremia and hypokalemia. The patient's sodium and potassium have improved. Nephrology, has seen the patient. Per nephrology on sodium chloride pill with fluid restriction. 2. Mass-like consolidative involving the left upper lobe with metastatic involvement of the liver and mediastinal lymph nodes. hepatic lesion is percutaneous accessible for biopsy. pulmonology and oncology input noted metastatic work up noted CT Abdomen and pelvis shows multiple hepatic lesion and lumber spine lesion consistant with metastasis. MRI of Brain discussed with patient. no metastasis in brain.....d/w Patient. S/P CT Guided biopsy. Report shows small cell lung cancer. s/p Port Placement...getting chemotherapy. The patient was advised to quit smoking. She has been smoking since the age of 11. 3. History of smoking. Patient advised to quit. 4. Hypertension. Continue home medication. 5. History of anxiety. Continue home medication. 6. Diarrhea checking stool study...better. 7. Hypokalemia resolved. We are going to manage the patient on a daily basis and make recommendations on a daily basis. Check CBC with diff CMP in AM. Discussed Condition with: Patient, Relative Uli Serrano MD Oct 21, 2016 13:10
[2016-10-21] MEDS ORDERED: SODIUM CHLOR 0.9% IV SCH (18:00)
[2016-10-21] MEDS: NS IV SCH (23:01)
[2016-10-21] MEDS: ETOPOSIDE IV SCH (23:01)
[2016-10-22] VITALS (8 sets, daily range): BP systolic 130–154; BP diastolic 78–105; PULSE 80–120; RESP 16–20; TEMP 96.1–97.1; O2SAT 97–100
[2016-10-22] MEDS: ACETAMINOPHEN 325 MG TAB PO PRN ×2 (03:49→22:44)
[2016-10-22] MEDS: GABAPENTIN 100 MG CAP PO SCH ×5 (05:02→20:05)
[2016-10-22 05:45] LABS: BASOPHIL # 0.1 TH/MM3 (0-0.2); BASOPHIL % 0.8 % (0.0-2.0); EOSINOPHIL % 0.1 % (0.0-4.0); HEMO FLAGS DIFF FINAL; LYMPH % 19.1 % (9.0-44.0); LYMPHOCYTE # 2.7 TH/MM3 (1.0-4.8); MEAN CELL VOLUME 84.4 FL (80.0-100.0); MEAN CORPUSCULAR HEMOGLOBIN 28.6 PG (27.0-34.0); MEAN CORPUSCULAR HGB CONC 33.9 % (32.0-36.0); MONO % 10.5 % (0.0-8.0); NEUT % 69.5 % (16.0-70.0); PLATELET COUNT 383 TH/MM3 (150-450); RED BLOOD COUNT 3.19 MIL/MM3 (4.00-5.30); RED CELL DISTRIBUTION WIDTH 15.9 % (11.6-17.2); WHITE BLOOD COUNT 14.4 TH/MM3 (4.0-11.0)
[2016-10-22 06:10] LABS: ANION GAP 9 MEQ/L (5-15)
[2016-10-22 06:14] LABS: ALKALINE PHOSPHATASE 81 U/L (45-117); ALT (GPT) 33 U/L (10-53); AST (GOT) 33 U/L (15-37); BLOOD UREA NITROGEN 6 MG/DL (7-18); CHLORIDE 92 MEQ/L (98-107); GLOMERULAR FILTRATION RATE 109 ML/MIN (>89); SODIUM (NA) 128 MEQ/L (136-145); TOTAL BILIRUBIN ADULT 0.3 MG/DL (0.2-1.0)
[2016-10-22 06:18] LABS: POTASSIUM 2.8 MEQ/L (3.5-5.1)
[2016-10-22] MEDS ORDERED: POTASSIUM CHLOR 20 MEQ PREMIX 100 ML IV ONE (07:00)
[2016-10-22] MEDS ORDERED: POTASSIUM CHLORIDE 20 MEQ CONTROLLED RELEASE TAB PO ONE (07:00)
[2016-10-22] MEDS: FUROSEMIDE 20 MG TAB PO SCH ×2 (08:48→17:31)
[2016-10-22] MEDS: CEFUROXIME AXETIL 500 MG TAB PO SCH ×2 (08:48→20:05)
[2016-10-22] MEDS: LORATADINE 10 MG TAB PO SCH (08:49)
[2016-10-22] MEDS: POTASSIUM CHLORIDE 10 MEQ CONTROLLED RELEASE TAB PO SCH (08:49)
[2016-10-22] MEDS: amLODIPine BESYLATE 5 MG TAB PO SCH (08:49)
[2016-10-22] MEDS: PROCHLORPERAZINE MALEATE 10 MG TAB PO SCH (08:49)
[2016-10-22] MEDS: LISINOPRIL 10 MG TAB PO SCH (08:49)
[2016-10-22] MEDS: SODIUM CHLORIDE 0.9% FLUSH 5 ML FLUSH FLUSH SCH ×2 (08:50→20:06)
[2016-10-22] MEDS: predniSONE 10 MG TAB PO SCH (08:50)
[2016-10-22] MEDS: clonazePAM 1 MG TAB PO SCH ×2 (08:50→20:05)
[2016-10-22] MEDS: SODIUM CHLORIDE 1 GRAM TAB PO SCH ×3 (08:50→17:31)
[2016-10-22] MEDS: BUDESONIDE-FORMOTEROL 160/4.5 MCG INHALER INH SCH ×2 (08:50→20:06)
--- NOTE | 2016-10-22 10:56 | PD.ONC.PN ---
Subjective Subjective Remarks Afebrile overnight. Patient resting comfortably. She wants to know when she can go home. She is still very thirsty and wants to know when she can drink normally again. She continues to have frequent urination and frequent stools. Objective Data Date Time Temp Pulse Resp B/P Pulse Ox O2 Delivery O2 Flow Rate FiO2 10/22/16 08:00 96.1 92 20 153/87 100 10/22/16 04:00 96.3 89 18 154/96 100 10/22/16 00:15 80 153/94 100 10/22/16 00:00 96.9 93 18 148/105 100 10/21/16 23:01 96 21 10/21/16 22:45 84 145/92 98 10/21/16 20:00 96.3 106 18 160/94 100 10/21/16 16:00 96.6 103 18 141/84 100 10/21/16 12:00 96.6 109 19 136/94 100 10/22/16 10/22/16 10/22/16 07:00 15:00 23:00 Intake Total 1682 ml Balance 1682 ml Result Diagram: 10/22/16 0527 10/22/16 0527 Laboratory Results Laboratory Tests Test 10/22/16 05:27 White Blood Count 14.4 TH/MM3 Red Blood Count 3.19 MIL/MM3 Hemoglobin 9.1 GM/DL Hematocrit 27.0 % Mean Corpuscular Volume 84.4 FL Mean Corpuscular Hemoglobin 28.6 PG Mean Corpuscular Hemoglobin 33.9 % Concent Red Cell Distribution Width 15.9 % Platelet Count 383 TH/MM3 Mean Platelet Volume 8.7 FL Neutrophils (%) (Auto) 69.5 % Lymphocytes (%) (Auto) 19.1 % Monocytes (%) (Auto) 10.5 % Eosinophils (%) (Auto) 0.1 % Basophils (%) (Auto) 0.8 % Neutrophils # (Auto) 10.0 TH/MM3 Lymphocytes # (Auto) 2.7 TH/MM3 Monocytes # (Auto) 1.5 TH/MM3 Eosinophils # (Auto) 0.0 TH/MM3 Basophils # (Auto) 0.1 TH/MM3 CBC Comment DIFF FINAL Differential Comment Sodium Level 128 MEQ/L Potassium Level 2.8 MEQ/L Chloride Level 92 MEQ/L Carbon Dioxide Level 27.0 MEQ/L Anion Gap 9 MEQ/L Blood Urea Nitrogen 6 MG/DL Creatinine 0.58 MG/DL Estimat Glomerular Filtration 109 ML/MIN Rate Random Glucose 95 MG/DL Calcium Level 8.4 MG/DL Total Bilirubin 0.3 MG/DL Aspartate Amino Transf 33 U/L (AST/SGOT) Alanine Aminotransferase 33 U/L (ALT/SGPT) Alkaline Phosphatase 81 U/L Total Protein 6.7 GM/DL Albumin 3.1 GM/DL Administered Medications Medications (Trade) Dose Ordered Sig/Ermias Route PRN Reason Start Time Stop Time Status Last Admin Dose Admin Ondansetron HCl (Zofran Inj) 4 mg Q6H PRN IV NAUSEA OR VOMITING 10/11/16 17:00 10/19/16 16:22 IV Flush (NS Flush) 2 ml UNSCH PRN FLUSH FLUSH AFTER USING IV ACCESS 10/11/16 17:30 10/12/16 03:30 IV Flush (NS Flush) 2 ml BID FLUSH 10/11/16 21:00 10/20/16 22:36 Acetaminophen 650 mg 650 mg Q4H PRN PO TEMP > 100.4 10/11/16 17:30 10/22/16 03:49 Dextrose (D5W 1000 ml Inj) 400 ml @ 200 mls/hr BOLUS PRN IV SEE COMMENTS 10/12/16 00:15 10/12/16 03:29 Clonazepam (KlonoPIN) 1 mg BID PO 10/12/16 14:15 10/22/16 08:50 Lisinopril (Prinivil) 10 mg DAILY PO 10/12/16 14:30 10/22/16 08:49 Loratadine (Claritin) 10 mg DAILY PO 10/12/16 14:15 10/22/16 08:49 Budesonide/ Formoterol Fumarate (Symbicort 160-4.5 Inh) 1 puff Q12HR INH 10/12/16 21:00 10/22/16 08:50 Sodium Chloride (Sodium Chloride) 2 gm TID PO 10/14/16 21:30 10/22/16 08:50 Furosemide (Lasix) 10 mg BID@09,18 PO 10/16/16 09:00 10/22/16 08:48 Potassium Chloride (KCl) 10 meq DAILY PO 10/15/16 15:00 10/22/16 08:49 Clonidine (Catapres) 0.1 mg Q6H PRN PO FOR SBP > 180 10/18/16 06:00 10/18/16 20:49 Amlodipine Besylate (Norvasc) 5 mg DAILY PO 10/19/16 09:00 10/22/16 08:49 Hydromorphone HCl 0.5 mg 0.5 mg Q3H PRN IV BREAKTHROUGH PAIN 10/18/16 23:30 10/19/16 00:47 Etoposide 143 mg/ Sodium Chloride 507.15 ml @ 507.15 mls/hr Q24H IV 10/20/16 18:00 10/22/16 18:59 10/21/16 23:01 Sodium Chloride (NS 1000 ml Inj) 1,500 ml @ 75 mls/hr Q20H IV 10/21/16 18:00 10/22/16 17:59 10/21/16 23:07 Prednisone (Deltasone) 10 mg DAILY PO 10/21/16 09:00 10/22/16 08:50 Cefuroxime Axetil (Ceftin) 500 mg Q12HR PO 10/21/16 09:00 10/22/16 08:48 Objective Remarks GENERAL: Middle aged female, lying in bed in nad. SKIN: Warm and dry. port right chest wall. IV, right arm. HEAD: Normocephalic. EYES: No injection or drainage. NECK: Supple, trachea midline. CARDIOVASCULAR: Regular rate and rhythm RESPIRATORY: Breath sounds equal bilaterally. No accessory muscle use. GASTROINTESTINAL: Abdomen soft, non-tender, nondistended. EXTREMITIES: No cyanosis NEUROLOGICAL: No obvious focal deficit. Awake, alert, and oriented x3. 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 --patient approved for follow up in clinic. (2) Normocytic anemia Status: Acute Plan: --monitor hgb --B12 WNL --low iron (3) Hyponatremia Status: Resolved Plan: --treating underlying cause w/ chemotherapy (4) SIADH (syndrome of inappropriate ADH production) Status: Acute (5) Tobacco abuse Status: Acute Assessment 51y/o female with extensive stage small cell lung cancer. Plan 1. proceed with last day of chemotherapy today 2. follow up is scheduled for -->November 04--2:45 appointment, 2:15 arrival time. At [facility]. 3. monitor labs Attending Statement The exam, history, and the medical decision-making described in the above note were completed with the assistance of the mid-level provider. I reviewed and agree with the findings presented. I attest that I had a [id number] encounter with the patient on the same day, and personally performed and documented my assessment and findings in the medical record. Johanna Orozco Oct 22, 2016 10:55 Aakash Gama MD Oct 23, 2016 15:06
--- NOTE | 2016-10-22 10:58 | HHI.PR ---
Subjective History of Present Illness Patient feel weak sodium still low 128 and low potassium 2.8 will replace. Nephrology managing.. Pulmonary and oncology input noted S/P CT Guided biopsy report shows small cell cancer .. metastatic work up noted.. S/P Port Placement. getting chemotherapy . Review of Systems Constitutional Constitutional: Fatigue, Weakness Vitals/Results Intake & Output 10/21/16 10/21/16 10/22/16 15:00 23:00 07:00 Intake Total 2320 ml 1682 ml Balance 2320 ml 1682 ml Intake Oral 2320 ml 720 ml IV Total 962 ml # Voids 11 3 # Bowel Movements 8 3 Vital Signs Vital Signs Date Time Temp Pulse Resp B/P Pulse Ox O2 Delivery O2 Flow Rate FiO2 10/22/16 08:00 96.1 92 20 153/87 100 10/22/16 04:00 96.3 89 18 154/96 100 10/22/16 00:15 80 153/94 100 10/22/16 00:00 96.9 93 18 148/105 100 10/21/16 23:01 96 21 10/21/16 22:45 84 145/92 98 10/21/16 20:00 96.3 106 18 160/94 100 10/21/16 16:00 96.6 103 18 141/84 100 10/21/16 12:00 96.6 109 19 136/94 100 CBC/BMP: 10/22/16 0527 10/22/16 0527 Lab Results Laboratory Tests Test 10/22/16 05:27 White Blood Count 14.4 TH/MM3 Red Blood Count 3.19 MIL/MM3 Hemoglobin 9.1 GM/DL Hematocrit 27.0 % Mean Corpuscular Volume 84.4 FL Mean Corpuscular Hemoglobin 28.6 PG Mean Corpuscular Hemoglobin 33.9 % Concent Red Cell Distribution Width 15.9 % Platelet Count 383 TH/MM3 Mean Platelet Volume 8.7 FL Neutrophils (%) (Auto) 69.5 % Lymphocytes (%) (Auto) 19.1 % Monocytes (%) (Auto) 10.5 % Eosinophils (%) (Auto) 0.1 % Basophils (%) (Auto) 0.8 % Neutrophils # (Auto) 10.0 TH/MM3 Lymphocytes # (Auto) 2.7 TH/MM3 Monocytes # (Auto) 1.5 TH/MM3 Eosinophils # (Auto) 0.0 TH/MM3 Basophils # (Auto) 0.1 TH/MM3 CBC Comment DIFF FINAL Differential Comment Sodium Level 128 MEQ/L Potassium Level 2.8 MEQ/L Chloride Level 92 MEQ/L Carbon Dioxide Level 27.0 MEQ/L Anion Gap 9 MEQ/L Blood Urea Nitrogen 6 MG/DL Creatinine 0.58 MG/DL Estimat Glomerular Filtration 109 ML/MIN Rate Random Glucose 95 MG/DL Calcium Level 8.4 MG/DL Total Bilirubin 0.3 MG/DL Aspartate Amino Transf 33 U/L (AST/SGOT) Alanine Aminotransferase 33 U/L (ALT/SGPT) Alkaline Phosphatase 81 U/L Total Protein 6.7 GM/DL Albumin 3.1 GM/DL Physical Exam General General Appearance: No Acute Distress, Comfortable Eyes Eye Exam: Pupils Equal, Pupils Reactive, Sclera White Ears & Nose Ears & Nose Exam: Nasal Mucosa [place], Septum Midline Throat Throat Exam: Oral Mucosa [place] & Moist Pulmonary Resp Exam: Clear Bilaterally, Breath Sounds Equal Cardiology CV Exam: Regular, Normal Sinus Rhythm Gastrointestinal/Abdomen GI Exam: Soft, Non-Tender, Bowel Sounds Present Musculoskeletal MS Exam: Joints Intact, Normal Tone Integumentary Skin Exam: Clear, Warm, Dry, Intact, Normal Turgor Extremeties Extremities Exam: No Edema Neurologic Neuro Exam: Alert, Awake, Oriented, Speech Clear Psychiatric Psych Exam: Appropriate Responses Assessment/Plan Assessment/Plan ASSESSMENT AND PLAN 1. This is 51-year-old female who came to the ER diagnosed with Generalized weakness, most likely secondary to hyponatremia and hypokalemia. The patient's sodium and potassium have improved. Nephrology, has seen the patient. Per nephrology on sodium chloride pill with fluid restriction. 2. Mass-like consolidative involving the left upper lobe with metastatic involvement of the liver and mediastinal lymph nodes. hepatic lesion is percutaneous accessible for biopsy. pulmonology and oncology input noted metastatic work up noted CT Abdomen and pelvis shows multiple hepatic lesion and lumber spine lesion consistant with metastasis. MRI of Brain discussed with patient. no metastasis in brain.....d/w Patient. S/P CT Guided biopsy. Report shows small cell lung cancer. s/p Port Placement...getting chemotherapy. The patient was advised to quit smoking. She has been smoking since the age of 11. 3. History of smoking. Patient advised to quit. 4. Hypertension. Continue home medication. 5. History of anxiety. Continue home medication. 6. Diarrhea checking stool study...better. 7. Hypokalemia wiil replace. We are going to manage the patient on a daily basis and make recommendations on a daily basis. Check CBC with diff CMP in AM. Discussed Condition with: Patient Uli Serrano MD Oct 22, 2016 10:58
[2016-10-22] MEDS: NS IV SCH (20:42)
[2016-10-22] MEDS: ETOPOSIDE IV SCH (20:42)
[2016-10-23] VITALS: BP 136/85; PULSE 98; RESP 18; TEMP 97.8; O2SAT 99
[2016-10-23] MEDS: ZOLPIDEM TARTRATE 5 MG TAB PO PRN (00:01)
[2016-10-23] MEDS: GABAPENTIN 100 MG CAP PO SCH ×5 (04:41→20:31)
[2016-10-23 05:14] LABS: AUTOMATED NEUTROPHIL # 6.5 TH/MM3 (1.8-7.7); BASOPHIL # 0.3 TH/MM3 (0-0.2); BASOPHIL % 2.7 % (0.0-2.0); EOSINOPHIL # 0.1 TH/MM3 (0-0.4); EOSINOPHIL % 0.6 % (0.0-4.0); HEMATOCRIT 29.1 % (35.0-46.0); HEMO FLAGS DIFF FINAL; LYMPH % 35.1 % (9.0-44.0); MEAN CELL VOLUME 84.7 FL (80.0-100.0); MEAN CORPUSCULAR HEMOGLOBIN 28.3 PG (27.0-34.0); MEAN CORPUSCULAR HGB CONC 33.5 % (32.0-36.0); NEUT % 57.6 % (16.0-70.0); PLATELET COUNT 365 TH/MM3 (150-450); RED BLOOD COUNT 3.44 MIL/MM3 (4.00-5.30); RED CELL DISTRIBUTION WIDTH 15.4 % (11.6-17.2); WHITE BLOOD COUNT 11.3 TH/MM3 (4.0-11.0)
[2016-10-23 05:33] LABS: ALKALINE PHOSPHATASE 94 U/L (45-117); ALT (GPT) 45 U/L (10-53); ANION GAP 10 MEQ/L (5-15); AST (GOT) 48 U/L (15-37); BICARBONATE 25.3 MEQ/L (21.0-32.0); BLOOD UREA NITROGEN 7 MG/DL (7-18); CHLORIDE 91 MEQ/L (98-107); GLOMERULAR FILTRATION RATE 114 ML/MIN (>89); POTASSIUM 3.7 MEQ/L (3.5-5.1); SODIUM (NA) 126 MEQ/L (136-145); TOTAL BILIRUBIN ADULT 0.2 MG/DL (0.2-1.0)
[2016-10-23 08:00] VITALS: BP 151/94; PULSE 88; RESP 16; TEMP 97.2; O2SAT 98
[2016-10-23] MEDS: predniSONE 10 MG TAB PO SCH (08:03)
[2016-10-23] MEDS: POTASSIUM CHLORIDE 10 MEQ CONTROLLED RELEASE TAB PO SCH (08:03)
[2016-10-23] MEDS: FUROSEMIDE 20 MG TAB PO SCH ×2 (08:03→17:07)
[2016-10-23] MEDS: LORATADINE 10 MG TAB PO SCH (08:03)
[2016-10-23] MEDS: amLODIPine BESYLATE 5 MG TAB PO SCH (08:03)
[2016-10-23] MEDS: CEFUROXIME AXETIL 500 MG TAB PO SCH ×2 (08:03→20:31)
[2016-10-23] MEDS: LISINOPRIL 10 MG TAB PO SCH (08:03)
[2016-10-23] MEDS: clonazePAM 1 MG TAB PO SCH ×2 (08:03→20:31)
[2016-10-23] MEDS: SODIUM CHLORIDE 0.9% FLUSH 5 ML FLUSH FLUSH SCH ×2 (08:04→20:32)
[2016-10-23] MEDS: BUDESONIDE-FORMOTEROL 160/4.5 MCG INHALER INH SCH ×2 (08:04→20:31)
[2016-10-23] MEDS: SODIUM CHLORIDE 1 GRAM TAB PO SCH ×3 (08:04→17:06)
[2016-10-23] MEDS: ACETAMINOPHEN 325 MG TAB PO PRN ×2 (09:58→15:17)
[2016-10-23 12:00] VITALS: BP 137/85; PULSE 91; RESP 20; TEMP 96.8; O2SAT 98
--- NOTE | 2016-10-23 12:43 | PD.ONC.PN ---
Subjective Subjective Remarks Afebrile overnight. Patient resting comfortably. Stating she really wants to go home. She also really wants to be able to drink more fluids. Sister and at bedside. Objective Data Date Time Temp Pulse Resp B/P Pulse Ox O2 Delivery O2 Flow Rate FiO2 10/23/16 10:58 18 10/23/16 08:00 97.2 88 16 151/94 98 10/23/16 00:00 97.8 98 18 136/85 99 10/22/16 20:00 97.1 101 16 131/78 98 10/22/16 19:30 120 10/22/16 16:00 96.1 92 20 145/86 100 10/23/16 10/23/16 10/23/16 07:00 15:00 23:00 Intake Total 736 ml Balance 736 ml Result Diagram: 10/23/16 0451 10/23/16 0451 Laboratory Results Laboratory Tests Test 10/23/16 04:51 White Blood Count 11.3 TH/MM3 Red Blood Count 3.44 MIL/MM3 Hemoglobin 9.7 GM/DL Hematocrit 29.1 % Mean Corpuscular Volume 84.7 FL Mean Corpuscular Hemoglobin 28.3 PG Mean Corpuscular Hemoglobin 33.5 % Concent Red Cell Distribution Width 15.4 % Platelet Count 365 TH/MM3 Mean Platelet Volume 8.9 FL Neutrophils (%) (Auto) 57.6 % Lymphocytes (%) (Auto) 35.1 % Monocytes (%) (Auto) 4.0 % Eosinophils (%) (Auto) 0.6 % Basophils (%) (Auto) 2.7 % Neutrophils # (Auto) 6.5 TH/MM3 Lymphocytes # (Auto) 4.0 TH/MM3 Monocytes # (Auto) 0.5 TH/MM3 Eosinophils # (Auto) 0.1 TH/MM3 Basophils # (Auto) 0.3 TH/MM3 CBC Comment DIFF FINAL Differential Comment Sodium Level 126 MEQ/L Potassium Level 3.7 MEQ/L Chloride Level 91 MEQ/L Carbon Dioxide Level 25.3 MEQ/L Anion Gap 10 MEQ/L Blood Urea Nitrogen 7 MG/DL Creatinine 0.56 MG/DL Estimat Glomerular Filtration 114 ML/MIN Rate Random Glucose 81 MG/DL Calcium Level 8.2 MG/DL Total Bilirubin 0.2 MG/DL Aspartate Amino Transf 48 U/L (AST/SGOT) Alanine Aminotransferase 45 U/L (ALT/SGPT) Alkaline Phosphatase 94 U/L Total Protein 6.9 GM/DL Albumin 3.1 GM/DL Administered Medications Medications (Trade) Dose Ordered Sig/Ermias Route PRN Reason Start Time Stop Time Status Last Admin Dose Admin Ondansetron HCl (Zofran Inj) 4 mg Q6H PRN IV NAUSEA OR VOMITING 10/11/16 17:00 10/19/16 16:22 IV Flush (NS Flush) 2 ml UNSCH PRN FLUSH FLUSH AFTER USING IV ACCESS 10/11/16 17:30 10/12/16 03:30 IV Flush (NS Flush) 2 ml BID FLUSH 10/11/16 21:00 10/20/16 22:36 Acetaminophen 650 mg 650 mg Q4H PRN PO TEMP > 100.4 10/11/16 17:30 10/23/16 09:58 Dextrose (D5W 1000 ml Inj) 400 ml @ 200 mls/hr BOLUS PRN IV SEE COMMENTS 10/12/16 00:15 10/12/16 03:29 Clonazepam (KlonoPIN) 1 mg BID PO 10/12/16 14:15 10/23/16 08:03 Lisinopril (Prinivil) 10 mg DAILY PO 10/12/16 14:30 10/23/16 08:03 Loratadine (Claritin) 10 mg DAILY PO 10/12/16 14:15 10/23/16 08:03 Budesonide/ Formoterol Fumarate (Symbicort 160-4.5 Inh) 1 puff Q12HR INH 10/12/16 21:00 10/23/16 08:04 Sodium Chloride (Sodium Chloride) 2 gm TID PO 10/14/16 21:30 10/23/16 08:04 Furosemide (Lasix) 10 mg BID@09,18 PO 10/16/16 09:00 10/23/16 08:03 Potassium Chloride (KCl) 10 meq DAILY PO 10/15/16 15:00 10/23/16 08:03 Clonidine (Catapres) 0.1 mg Q6H PRN PO FOR SBP > 180 10/18/16 06:00 10/18/16 20:49 Amlodipine Besylate (Norvasc) 5 mg DAILY PO 10/19/16 09:00 10/23/16 08:03 Hydromorphone HCl (Dilaudid Pf Inj) 0.5 mg Q3H PRN IV BREAKTHROUGH PAIN 10/18/16 23:30 10/19/16 00:47 Prednisone (Deltasone) 10 mg DAILY PO 10/21/16 09:00 10/23/16 08:03 Cefuroxime Axetil (Ceftin) 500 mg Q12HR PO 10/21/16 09:00 10/23/16 08:03 Zolpidem Tartrate (Ambien) 5 mg HS PRN PO INSOMNIA 10/21/16 19:00 10/23/16 00:01 Objective Remarks GENERAL: Middle aged female, sitting up in bed talking excitedly. SKIN: Warm and dry. port accessed, right chest wall. HEAD: Normocephalic. EYES: No injection or drainage. NECK: Supple, trachea midline. CARDIOVASCULAR: Regular rate and rhythm RESPIRATORY: Breath sounds equal bilaterally. No accessory muscle use. GASTROINTESTINAL: Abdomen soft, non-tender, nondistended. EXTREMITIES: No cyanosis NEUROLOGICAL: No obvious focal deficit. Awake, alert, and oriented x3. 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 --patient approved for follow up in clinic. (2) Normocytic anemia Status: Acute Plan: --monitor hgb --B12 WNL --low iron (3) Hyponatremia Status: Resolved Plan: --free water restriction of 1200cc/day --treating underlying cause w/ chemotherapy (4) SIADH (syndrome of inappropriate ADH production) Status: Acute (5) Tobacco abuse Status: Acute Assessment 51y/o female with extensive stage small cell lung cancer. Plan 1. monitor sodium 2. finished chemotherapy yesterday 3. monitor CBC follow up is scheduled for -->November 04--2:45 appointment, 2:15 arrival time. At [facility] office. Johanna Orozco Oct 23, 2016 12:42
[2016-10-23] MEDS ORDERED: TOLVAPTAN 15 MG TAB PO ONE (13:15)
--- NOTE | 2016-10-23 13:23 | HHI.PR ---
Subjective History of Present Illness Patient feel weak sodium still low 126 and low potassium resolved . Nephrology managing.. Pulmonary and oncology input noted S/P CT Guided biopsy report shows small cell cancer .. metastatic work up noted.. S/P Port Placement. getting chemotherapy . Review of Systems Constitutional Constitutional: Fatigue, Weakness Vitals/Results Intake & Output 10/22/16 10/22/16 10/23/16 15:00 23:00 07:00 Intake Total 300 ml 360 ml 736 ml Output Total 725 ml Balance -425 ml 360 ml 736 ml Intake Oral 300 ml 360 ml 240 ml IV Total 496 ml Output Urine Total 725 ml # Voids 3 2 2 Vital Signs Vital Signs Date Time Temp Pulse Resp B/P Pulse Ox O2 Delivery O2 Flow Rate FiO2 10/23/16 12:00 96.8 91 20 137/85 98 10/23/16 10:58 18 10/23/16 08:00 97.2 88 16 151/94 98 10/23/16 00:00 97.8 98 18 136/85 99 10/22/16 20:00 97.1 101 16 131/78 98 10/22/16 19:30 120 10/22/16 16:00 96.1 92 20 145/86 100 CBC/BMP: 10/23/16 0451 10/23/16 0451 Lab Results Laboratory Tests Test 10/23/16 04:51 White Blood Count 11.3 TH/MM3 Red Blood Count 3.44 MIL/MM3 Hemoglobin 9.7 GM/DL Hematocrit 29.1 % Mean Corpuscular Volume 84.7 FL Mean Corpuscular Hemoglobin 28.3 PG Mean Corpuscular Hemoglobin 33.5 % Concent Red Cell Distribution Width 15.4 % Platelet Count 365 TH/MM3 Mean Platelet Volume 8.9 FL Neutrophils (%) (Auto) 57.6 % Lymphocytes (%) (Auto) 35.1 % Monocytes (%) (Auto) 4.0 % Eosinophils (%) (Auto) 0.6 % Basophils (%) (Auto) 2.7 % Neutrophils # (Auto) 6.5 TH/MM3 Lymphocytes # (Auto) 4.0 TH/MM3 Monocytes # (Auto) 0.5 TH/MM3 Eosinophils # (Auto) 0.1 TH/MM3 Basophils # (Auto) 0.3 TH/MM3 CBC Comment DIFF FINAL Differential Comment Sodium Level 126 MEQ/L Potassium Level 3.7 MEQ/L Chloride Level 91 MEQ/L Carbon Dioxide Level 25.3 MEQ/L Anion Gap 10 MEQ/L Blood Urea Nitrogen 7 MG/DL Creatinine 0.56 MG/DL Estimat Glomerular Filtration 114 ML/MIN Rate Random Glucose 81 MG/DL Calcium Level 8.2 MG/DL Total Bilirubin 0.2 MG/DL Aspartate Amino Transf 48 U/L (AST/SGOT) Alanine Aminotransferase 45 U/L (ALT/SGPT) Alkaline Phosphatase 94 U/L Total Protein 6.9 GM/DL Albumin 3.1 GM/DL Physical Exam General General Appearance: No Acute Distress, Comfortable Eyes Eye Exam: Pupils Equal, Pupils Reactive, Sclera White Ears & Nose Ears & Nose Exam: Nasal Mucosa [place], Septum Midline Throat Throat Exam: Oral Mucosa [place] & Moist Pulmonary Resp Exam: Clear Bilaterally, Breath Sounds Equal Cardiology CV Exam: Regular, Normal Sinus Rhythm Gastrointestinal/Abdomen GI Exam: Soft, Non-Tender, Bowel Sounds Present Musculoskeletal MS Exam: Joints Intact, Normal Tone Integumentary Skin Exam: Clear, Warm, Dry, Intact, Normal Turgor Extremeties Extremities Exam: No Edema Neurologic Neuro Exam: Alert, Awake, Oriented, Speech Clear Psychiatric Psych Exam: Appropriate Responses Assessment/Plan Assessment/Plan ASSESSMENT AND PLAN 1. This is 51-year-old female who came to the ER diagnosed with Generalized weakness, most likely secondary to hyponatremia and hypokalemia. The patient's sodium and potassium have improved. Nephrology, has seen the patient. Per nephrology on sodium chloride pill with fluid restriction. 2. Mass-like consolidative involving the left upper lobe with metastatic involvement of the liver and mediastinal lymph nodes. hepatic lesion is percutaneous accessible for biopsy. pulmonology and oncology input noted metastatic work up noted CT Abdomen and pelvis shows multiple hepatic lesion and lumber spine lesion consistant with metastasis. MRI of Brain discussed with patient. no metastasis in brain.....d/w Patient. S/P CT Guided biopsy. Report shows small cell lung cancer. s/p Port Placement...getting chemotherapy. The patient was advised to quit smoking. She has been smoking since the age of 11. 3. History of smoking. Patient advised to quit. 4. Hypertension. Continue home medication. 5. History of anxiety. Continue home medication. 6. Diarrhea checking stool study...better. 7. Hypokalemia resolved. We are going to manage the patient on a daily basis and make recommendations on a daily basis. Check CBC with diff CMP in AM. Discussed Condition with: Patient Uli Serrano MD Oct 23, 2016 13:23
[2016-10-23 16:00] VITALS: BP 136/82; PULSE 87; RESP 20; TEMP 96.4; O2SAT 100
[2016-10-23 20:00] VITALS: BP 127/86; PULSE 93; RESP 16; TEMP 97.2; O2SAT 98
[2016-10-23 20:23] VITALS: PULSE 97
[2016-10-24] VITALS: BP 123/92; PULSE 114; RESP 17; TEMP 97.4; O2SAT 97
[2016-10-24] MEDS: ZOLPIDEM TARTRATE 5 MG TAB PO PRN (00:03)
[2016-10-24] MEDS: ACETAMINOPHEN 325 MG TAB PO PRN (03:38)
[2016-10-24 04:00] VITALS: BP 130/91; PULSE 103; RESP 16; TEMP 97.5; O2SAT 99
[2016-10-24] MEDS: GABAPENTIN 100 MG CAP PO SCH ×3 (05:41→13:43)
[2016-10-24 05:55] LABS: AUTOMATED NEUTROPHIL # 7.6 TH/MM3 (1.8-7.7); BASOPHIL # 0.1 TH/MM3 (0-0.2); BASOPHIL % 0.9 % (0.0-2.0); EOSINOPHIL # 0.1 TH/MM3 (0-0.4); EOSINOPHIL % 0.8 % (0.0-4.0); HEMATOCRIT 31.4 % (35.0-46.0); HEMO FLAGS DIFF FINAL; LYMPH % 29.9 % (9.0-44.0); LYMPHOCYTE # 3.4 TH/MM3 (1.0-4.8); MEAN CORPUSCULAR HEMOGLOBIN 28.2 PG (27.0-34.0); MEAN CORPUSCULAR HGB CONC 32.8 % (32.0-36.0); NEUT % 67.4 % (16.0-70.0); PLATELET COUNT 346 TH/MM3 (150-450); RED BLOOD COUNT 3.65 MIL/MM3 (4.00-5.30); RED CELL DISTRIBUTION WIDTH 15.1 % (11.6-17.2); WHITE BLOOD COUNT 11.2 TH/MM3 (4.0-11.0)
[2016-10-24 06:10] LABS: ALKALINE PHOSPHATASE 93 U/L (45-117); ALT (GPT) 61 U/L (10-53); ANION GAP 9 MEQ/L (5-15); AST (GOT) 55 U/L (15-37); BICARBONATE 27.9 MEQ/L (21.0-32.0); BLOOD UREA NITROGEN 7 MG/DL (7-18); CHLORIDE 95 MEQ/L (98-107); GLOMERULAR FILTRATION RATE 89 ML/MIN (>89); POTASSIUM 3.1 MEQ/L (3.5-5.1); SODIUM (NA) 132 MEQ/L (136-145); TOTAL BILIRUBIN ADULT 0.5 MG/DL (0.2-1.0)
--- NOTE | 2016-10-24 07:29 | HHI.PR ---
Subjective History of Present Illness Patient feel weak sodium still low 126 and low potassium resolved . Nephrology managing.. Pulmonary and oncology input noted S/P CT Guided biopsy report shows small cell cancer .. metastatic work up noted.. S/P Port Placement.s/p chemotherapy . ok to dc home today. Review of Systems Constitutional Constitutional: Fatigue, Weakness Vitals/Results Intake & Output 10/23/16 10/23/16 10/24/16 15:00 23:00 07:00 Intake Total 1400 ml 360 ml Output Total 1000 ml Balance 400 ml 360 ml Intake Oral 800 ml 360 ml IV Total 600 ml Output Urine Total 1000 ml # Voids 11 1 # Bowel Movements 11 0 Vital Signs Vital Signs Date Time Temp Pulse Resp B/P Pulse Ox O2 Delivery O2 Flow Rate FiO2 10/24/16 00:00 97.4 114 17 123/92 97 10/23/16 20:23 97 10/23/16 20:00 97.2 93 16 127/86 98 10/23/16 16:17 18 10/23/16 16:00 96.4 87 20 136/82 100 10/23/16 12:00 96.8 91 20 137/85 98 10/23/16 08:00 97.2 88 16 151/94 98 CBC/BMP: 10/24/16 0533 10/24/16 0533 Lab Results Laboratory Tests Test 10/24/16 05:33 White Blood Count 11.2 TH/MM3 Red Blood Count 3.65 MIL/MM3 Hemoglobin 10.3 GM/DL Hematocrit 31.4 % Mean Corpuscular Volume 86.0 FL Mean Corpuscular Hemoglobin 28.2 PG Mean Corpuscular Hemoglobin 32.8 % Concent Red Cell Distribution Width 15.1 % Platelet Count 346 TH/MM3 Mean Platelet Volume 8.8 FL Neutrophils (%) (Auto) 67.4 % Lymphocytes (%) (Auto) 29.9 % Monocytes (%) (Auto) 1.0 % Eosinophils (%) (Auto) 0.8 % Basophils (%) (Auto) 0.9 % Neutrophils # (Auto) 7.6 TH/MM3 Lymphocytes # (Auto) 3.4 TH/MM3 Monocytes # (Auto) 0.1 TH/MM3 Eosinophils # (Auto) 0.1 TH/MM3 Basophils # (Auto) 0.1 TH/MM3 CBC Comment DIFF FINAL Differential Comment Sodium Level 132 MEQ/L Potassium Level 3.1 MEQ/L Chloride Level 95 MEQ/L Carbon Dioxide Level 27.9 MEQ/L Anion Gap 9 MEQ/L Blood Urea Nitrogen 7 MG/DL Creatinine 0.69 MG/DL Estimat Glomerular Filtration 89 ML/MIN Rate Random Glucose 109 MG/DL Serum Osmolality 269 MOSM/KG Calcium Level 8.5 MG/DL Total Bilirubin 0.5 MG/DL Aspartate Amino Transf 55 U/L (AST/SGOT) Alanine Aminotransferase 61 U/L (ALT/SGPT) Alkaline Phosphatase 93 U/L Total Protein 7.1 GM/DL Albumin 3.3 GM/DL Physical Exam General General Appearance: No Acute Distress, Comfortable Eyes Eye Exam: Pupils Equal, Pupils Reactive, Sclera White Ears & Nose Ears & Nose Exam: Nasal Mucosa [place], Septum Midline Throat Throat Exam: Oral Mucosa [place] & Moist Pulmonary Resp Exam: Clear Bilaterally, Breath Sounds Equal Cardiology CV Exam: Regular, Normal Sinus Rhythm Gastrointestinal/Abdomen GI Exam: Soft, Non-Tender, Bowel Sounds Present Musculoskeletal MS Exam: Joints Intact, Normal Tone Integumentary Skin Exam: Clear, Warm, Dry, Intact, Normal Turgor Extremeties Extremities Exam: No Edema Neurologic Neuro Exam: Alert, Awake, Oriented, Speech Clear Psychiatric Psych Exam: Appropriate Responses Assessment/Plan Assessment/Plan ASSESSMENT AND PLAN 1. This is 51-year-old female who came to the ER diagnosed with Generalized weakness, most likely secondary to hyponatremia and hypokalemia. The patient's sodium and potassium have improved. Nephrology, has seen the patient. Per nephrology on sodium chloride pill with fluid restriction. 2. Mass-like consolidative involving the left upper lobe with metastatic involvement of the liver and mediastinal lymph nodes. hepatic lesion is percutaneous accessible for biopsy. pulmonology and oncology input noted metastatic work up noted CT Abdomen and pelvis shows multiple hepatic lesion and lumber spine lesion consistant with metastasis. MRI of Brain discussed with patient. no metastasis in brain.....d/w Patient. S/P CT Guided biopsy. Report shows small cell lung cancer. s/p Port Placement...getting chemotherapy. The patient was advised to quit smoking. She has been smoking since the age of 11. 3. History of smoking. Patient advised to quit. 4. Hypertension. Continue home medication. 5. History of anxiety. Continue home medication. 6. Diarrhea checking stool study...better. 7. Hypokalemia resolved. ok to dc home today. f/u with oncology/Nephrology 2-3 days. Discussed Condition with: Patient Uli Serrano MD Oct 24, 2016 07:28
[2016-10-24] MEDS: LISINOPRIL 10 MG TAB PO SCH (07:59)
[2016-10-24] MEDS: clonazePAM 1 MG TAB PO SCH (07:59)
[2016-10-24] MEDS: POTASSIUM CHLORIDE 10 MEQ CONTROLLED RELEASE TAB PO SCH (07:59)
[2016-10-24] MEDS: SODIUM CHLORIDE 1 GRAM TAB PO SCH ×2 (07:59→13:00)
[2016-10-24] MEDS: predniSONE 10 MG TAB PO SCH (07:59)
[2016-10-24] MEDS: CEFUROXIME AXETIL 500 MG TAB PO SCH (07:59)
[2016-10-24 08:00] VITALS: BP 100/68; PULSE 109; RESP 18; TEMP 97.8; O2SAT 99
[2016-10-24] MEDS: LORATADINE 10 MG TAB PO SCH (08:00)
[2016-10-24] MEDS: FUROSEMIDE 20 MG TAB PO SCH (08:00)
[2016-10-24] MEDS: amLODIPine BESYLATE 5 MG TAB PO SCH (08:00)
[2016-10-24] MEDS: SODIUM CHLORIDE 0.9% FLUSH 5 ML FLUSH FLUSH SCH (09:00)
[2016-10-24] MEDS: BUDESONIDE-FORMOTEROL 160/4.5 MCG INHALER INH SCH (09:00)
[2016-10-24] MEDS ORDERED: SODI1TAB PO (09:14)
[2016-10-24] MEDS ORDERED: AMBI5TAB PO (09:14)
[2016-10-24] MEDS ORDERED: AMLO5 PO (09:14)
[2016-10-24] MEDS ORDERED: SYMB160A INH (09:14)
[2016-10-24] MEDS ORDERED: POTA-243 PO (09:14)
[2016-10-24] MEDS ORDERED: CEFT500T3 PO (09:14)
--- NOTE | 2016-10-24 10:14 | PD.ONC.PN ---
Subjective Subjective Remarks Afebrile overnight. patient eager to know when she can go home. Still thirsty. Objective Data Date Time Temp Pulse Resp B/P Pulse Ox O2 Delivery O2 Flow Rate FiO2 10/24/16 04:00 97.5 103 16 130/91 99 10/24/16 00:00 97.4 114 17 123/92 97 10/23/16 20:23 97 10/23/16 20:00 97.2 93 16 127/86 98 10/23/16 16:17 18 10/23/16 16:00 96.4 87 20 136/82 100 10/23/16 12:00 96.8 91 20 137/85 98 10/24/16 10/24/16 10/24/16 07:00 15:00 23:00 Intake Total 240 ml Balance 240 ml Result Diagram: 10/24/16 0533 10/24/16 0533 Laboratory Results Laboratory Tests Test 10/24/16 05:33 White Blood Count 11.2 TH/MM3 Red Blood Count 3.65 MIL/MM3 Hemoglobin 10.3 GM/DL Hematocrit 31.4 % Mean Corpuscular Volume 86.0 FL Mean Corpuscular Hemoglobin 28.2 PG Mean Corpuscular Hemoglobin 32.8 % Concent Red Cell Distribution Width 15.1 % Platelet Count 346 TH/MM3 Mean Platelet Volume 8.8 FL Neutrophils (%) (Auto) 67.4 % Lymphocytes (%) (Auto) 29.9 % Monocytes (%) (Auto) 1.0 % Eosinophils (%) (Auto) 0.8 % Basophils (%) (Auto) 0.9 % Neutrophils # (Auto) 7.6 TH/MM3 Lymphocytes # (Auto) 3.4 TH/MM3 Monocytes # (Auto) 0.1 TH/MM3 Eosinophils # (Auto) 0.1 TH/MM3 Basophils # (Auto) 0.1 TH/MM3 CBC Comment DIFF FINAL Differential Comment Sodium Level 132 MEQ/L Potassium Level 3.1 MEQ/L Chloride Level 95 MEQ/L Carbon Dioxide Level 27.9 MEQ/L Anion Gap 9 MEQ/L Blood Urea Nitrogen 7 MG/DL Creatinine 0.69 MG/DL Estimat Glomerular Filtration 89 ML/MIN Rate Random Glucose 109 MG/DL Serum Osmolality 269 MOSM/KG Calcium Level 8.5 MG/DL Total Bilirubin 0.5 MG/DL Aspartate Amino Transf 55 U/L (AST/SGOT) Alanine Aminotransferase 61 U/L (ALT/SGPT) Alkaline Phosphatase 93 U/L Total Protein 7.1 GM/DL Albumin 3.3 GM/DL Administered Medications Medications (Trade) Dose Ordered Sig/Ermias Route PRN Reason Start Time Stop Time Status Last Admin Dose Admin Ondansetron HCl (Zofran Inj) 4 mg Q6H PRN IV NAUSEA OR VOMITING 10/11/16 17:00 10/19/16 16:22 IV Flush (NS Flush) 2 ml UNSCH PRN FLUSH FLUSH AFTER USING IV ACCESS 10/11/16 17:30 10/12/16 03:30 IV Flush (NS Flush) 2 ml BID FLUSH 10/11/16 21:00 10/23/16 20:32 Acetaminophen 650 mg 650 mg Q4H PRN PO TEMP > 100.4 10/11/16 17:30 10/24/16 03:38 Dextrose (D5W 1000 ml Inj) 400 ml @ 200 mls/hr BOLUS PRN IV SEE COMMENTS 10/12/16 00:15 10/12/16 03:29 Albuterol Sulfate (Proair Hfa Inh) 2 puff Q6H PRN INH SHORTNESS OF BREATH 10/12/16 14:15 10/24/16 08:05 Clonazepam (KlonoPIN) 1 mg BID PO 10/12/16 14:15 10/24/16 07:59 Lisinopril (Prinivil) 10 mg DAILY PO 10/12/16 14:30 10/24/16 07:59 Loratadine (Claritin) 10 mg DAILY PO 10/12/16 14:15 10/24/16 08:00 Budesonide/ Formoterol Fumarate (Symbicort 160-4.5 Inh) 1 puff Q12HR INH 10/12/16 21:00 10/23/16 08:04 Sodium Chloride (Sodium Chloride) 2 gm TID PO 10/14/16 21:30 10/24/16 07:59 Furosemide (Lasix) 10 mg BID@09,18 PO 10/16/16 09:00 10/24/16 08:00 Potassium Chloride (KCl) 10 meq DAILY PO 10/15/16 15:00 10/24/16 07:59 Clonidine (Catapres) 0.1 mg Q6H PRN PO FOR SBP > 180 10/18/16 06:00 10/18/16 20:49 Amlodipine Besylate (Norvasc) 5 mg DAILY PO 10/19/16 09:00 10/24/16 08:00 Hydromorphone HCl (Dilaudid Pf Inj) 0.5 mg Q3H PRN IV BREAKTHROUGH PAIN 10/18/16 23:30 10/19/16 00:47 Prednisone (Deltasone) 10 mg DAILY PO 10/21/16 09:00 10/24/16 07:59 Cefuroxime Axetil (Ceftin) 500 mg Q12HR PO 10/21/16 09:00 10/24/16 07:59 Zolpidem Tartrate (Ambien) 5 mg HS PRN PO INSOMNIA 10/21/16 19:00 10/24/16 00:03 Objective Remarks GENERAL: Middle aged female, sitting up in bed in nad SKIN: Warm and dry. port , right chest wall. HEAD: Normocephalic. EYES: No injection or drainage. NECK: Supple, trachea midline. CARDIOVASCULAR: Regular rate and rhythm RESPIRATORY: Breath sounds equal bilaterally. No accessory muscle use. GASTROINTESTINAL: Abdomen soft, non-tender, nondistended. EXTREMITIES: No cyanosis NEUROLOGICAL: No obvious focal deficit. Awake, alert, and oriented x3. Assessment/Plan Problem List: (1) SCLC (small cell lung carcinoma) Status: Acute Plan: --CT guided lung biopsy shows small cell (oat cell) carcinoma --port placed and cisplatin + VP16 started 10/20/16 (completed 10/22/16) --patient approved for follow up in clinic. (2) Normocytic anemia Status: Acute Plan: --monitor hgb --B12 WNL --low iron (3) Hyponatremia Status: Resolved Plan: --free water restriction of 1200cc/day --treating underlying cause w/ chemotherapy (4) SIADH (syndrome of inappropriate ADH production) Status: Acute (5) Tobacco abuse Status: Acute Assessment 51y/o female with extensive stage small cell lung cancer. Plan 1. monitor sodium 2. clear for discharge follow up is scheduled for -->November 04--2:45 appointment, 2:15 arrival time. At [facility] office. Attending Statement The exam, history, and the medical decision-making described in the above note were completed with the assistance of the mid-level provider. I reviewed and agree with the findings presented. I attest that I had a [id number] encounter with the patient on the same day, and personally performed and documented my assessment and findings in the medical record. tolerated chemotherapy, no major issues at this point. Hponatremia improving. f/ u with in clinic in 1-2 weeks, Johanna Orozco Oct 24, 2016 10:14 Aakash Gama MD Oct 24, 2016 23:49
[2016-10-24 12:00] VITALS: BP 113/76; PULSE 105; RESP 19; TEMP 98.3; O2SAT 97
[2016-10-24 16:00] VITALS: BP 122/87; PULSE 98; RESP 19; TEMP 96.9; O2SAT 100
--- NOTE | 2016-11-03 07:43 | MD ---
cc: ULI GARNETT MD ADMISSION DATE: 10/11/2016 DISCHARGE DATE: 10/24/2016 DISPOSITION Okay to discharge the patient home. CONDITION AT THE TIME OF DISCHARGE Satisfactory. ACTIVITY As tolerated. DIET Cardiac diet. ALLERGIES LIPITOR. CODEINE. SEASONAL ALLERGY. ESTROVEN. DISCHARGE MEDICATIONS 1. Amlodipine 5 mg p.o. daily 2. Symbicort 1 puff inhalation q.12 hours. 3. Ceftin 500 mg q. 12-hour for 7 days. 4. Potassium chloride 10 mEq p.o. daily. 5. Sodium chloride 2 grams p.o. t.i.d. 6. Ambien 5 mg p.o. at bedtime. 7. Klonopin 1 mg p.o. b.i.d. 8. Albuterol nebulization. 9. Albuterol inhaler 2 puffs q. 6 hours. 10. Albuterol nebulization q.2 hours. 11. Clonazepam 1 mg p.o. b.i.d. 12. Gabapentin 100 mg of five times a day. 13. Lisinopril 10 mg p.o. daily. 14. Loratadine 10 mg p.o. daily. FOLLOWUP The patient was advised to follow with Nephrology and Oncology and PCP within a week. ADMISSION DIAGNOSES 1. Generalized weakness secondary to hyponatremia and hypokalemia. Sodium and potassium were low and eventually they improved. Mass-like consolidation involving the left upper lobe with metastatic involvement of the liver, edematous mediastinal lymph node. The hepatic lesion was percutaneously accessible for biopsy. Biopsy was done and showed a small-cell cancer of the lung, Stage IV. The patient is status post port placement and had chemotherapy done and was discharged home, advised to follow up with Oncology. 2. History of smoking since the age of 11. The patient advised to quit. 3. History of hypertension. 4. History of anxiety. 5. Diarrhea which has resolved. 6. Hypokalemia which has resolved. HOSPITAL COURSE This is a 51-year-old female admitted the generalized weakness, had hyponatremia. Sodium was 113. The patient was given sodium replacement and also given sodium chloride tablets. The patient's sodium improved. The patient had a CT of the abdomen done, shows multiple hepatic lesion consistent with metastatic disease, largest lesion measuring 2.2 cm within Segment and was percutaneously accessible for biopsy. Subtle areas of sclerosis scattered throughout the lumbar spine consistent with metastatic disease. CT chest was done that showed mass-like consolidation involving the left upper lobe with metastatic involvement to the liver and mediastinal lymph nodes. Dominant hepatic lesion is percutaneously accessible for biopsy. The patient had MRI of the brain done that shows no metastatic disease in the brain but CT abdomen shows metastatic disease in the lumbar spine. The patient was seen by Oncology, Dr. Aakash Gama. The patient's histopathology of the mass showed a small-cell cancer. The patient had mild leukocytosis during the hospital stay. The patient also had anemia of 9.7-9.8 hemoglobin during hospital stay. The patient had a fluctuating sodium level during the hospital stay but at the time of discharge sodium was 132. The patient also had hypokalemia during the hospital stay. The patient's INR was 1.0, APTT was 27.8. Urine examination shows trace of occult blood. Toxicology screen and alcohol was negative. C-diff was negative. Dr. Manuel has seen the patient from nephrology standpoint. Further details in the medical record. Uli Garnett MD EA/MICK /3:33 PM /7:19 AM
== END 2016-10-24 17:43 | disposition home or self-care (01) | DRG 180 ==
LOC: PHED 13:12 → PHEDA 16:50 → PH3A 18:08 → N06A 10-13 23:37
PROVIDERS: ADMIT Family Medicine; ATTEND Family Medicine
PROC: 0FB13ZX Excision of Right Lobe Liver, Percutaneous Approach, Diagnostic (ICD-10-PCS; principal; 2016-10-14)
PROC: 0JH63XZ Insertion of Tunneled Vascular Access Device into Chest Subcutaneous Tissue and Fascia, Percutaneous Approach (ICD-10-PCS; 2016-10-18)
PROC: 05HM33Z Insertion of Infusion Device into Right Internal Jugular Vein, Percutaneous Approach (ICD-10-PCS; 2016-10-18)
PROC: B543ZZA Ultrasonography of Right Jugular Veins, Guidance (ICD-10-PCS; 2016-10-18)
PROC: 3E04305 Introduction of Other Antineoplastic into Central Vein, Percutaneous Approach (ICD-10-PCS; 2016-10-20)
DX: C34.12 Malignant neoplasm of upper lobe, left bronchus or lung (principal); J18.9 Pneumonia, unspecified organism; R64 Cachexia; C78.7 Secondary malignant neoplasm of liver and intrahepatic bile duct; C77.1 Secondary and unspecified malignant neoplasm of intrathoracic lymph nodes; E22.2 Syndrome of inappropriate secretion of antidiuretic hormone; C79.51 Secondary malignant neoplasm of bone; J44.0 Chronic obstructive pulmonary disease with (acute) lower respiratory infection; J44.1 Chronic obstructive pulmonary disease with (acute) exacerbation; G62.9 Polyneuropathy, unspecified; I10 Essential (primary) hypertension; E87.6 Hypokalemia; J45.909 Unspecified asthma, uncomplicated; K21.9 Gastro-esophageal reflux disease without esophagitis; F41.9 Anxiety disorder, unspecified; E78.5 Hyperlipidemia, unspecified; D64.9 Anemia, unspecified; R19.7 Diarrhea, unspecified; F17.210 Nicotine dependence, cigarettes, uncomplicated; Z68.20 Body mass index [BMI] 20.0-20.9, adult; Z88.5 Allergy status to narcotic agent; Z91.19 Patient's noncompliance with other medical treatment and regimen
CPT/HCPCS: 36561; 47000; 70553; 71250; 74177; 76937; 77001; 77012; 80048; 80053; 80320; 81001; 82378; 82607; 82747; 83540; 83550; 83615; 83690; 83735; 83930; 84295; 84443; 84466; 84702; 85025; 85610; 85730; 87493; 88307; 88333; 88341; 88342; 93005; 94060; 94640; 94664; 96360; 96361; 99152; 99153; A9579; C1788; J0696; J1100; J1170; J1626; J1642; J1940; J2250; J2405; J2597; J3010; J3475; J3480; J7030; J7040; J7060; J7070; J7512; J9060; J9181; Q0164; Q9967

== ENCOUNTER 2016-10-31 16:58 | Inpatient (IN) | payer OTHER ==
[~2016-10-31] VITALS: Ht 154.9 cm; Wt 47.9 kg
[~2016-10-31 16:58] MED LIST changes: +AMBI5TAB PO; +AMLO5 PO; +CEFT500T3 PO; +POTA-243 PO; +SYMB160A INH
[2016-10-31 17:03] VITALS: BP 118/78; PULSE 80; RESP 18; TEMP 97.7; O2SAT 96
[2016-10-31 17:11] VITALS: BP 118/74; PULSE 84; TEMP 97.7; O2SAT 99
[2016-10-31] MEDS ORDERED: SODIUM CHLOR 0.9% 1000 ML INJ 1,000 ML IV SCH (17:20)
--- NOTE | 2016-10-31 17:21 | PD ---
HPI Chief Complaint: Dizziness Time Seen by Provider: 17:21 Travel History International Travel<30 days: No Contact w/Intl Traveler<30days: No Traveled to known affect area: No History of Present Illness HPI 51-year-old female with a history of hypertension, COPD, asthma, GERD, small cell lung cancer is brought to the emergency department by EMS for evaluation of dizziness and confusion. The patient states that she was at home having her sister color her hair, was bent over the sink when she began to experience dizziness. Per EMS report the family states that she became confused and had difficulty finding words. States that she is no longer experiencing any dizziness, complains of feeling slightly fatigued. Denies any one-sided weakness, numbness or tingling, headache, nausea, vomiting, chest pain, shortness of breath. The patient admits that she has a history of hyponatremia and that sometimes she feels this way when her sodium is low. States that she has only taken 2 of her 6 sodium tablets today because she ran out of her pills. The patient was just recently diagnosed with small cell lung carcinoma and had a port placed, was given her first dose of chemotherapy 2 weeks ago. States she has an appointment with the oncologist in about a week for follow- up. No other complaints. PFSH Past Medical History Hx Anticoagulant Therapy: No Asthma: Yes Autoimmune Disease: No Anxiety: No Depression: No Heart Rhythm Problems: No Cancer: No Cardiovascular Problems: Yes (HTN) High Cholesterol: No Chest Pain: No Congestive Heart Failure: No COPD: Yes Cerebrovascular Accident: No Diabetes: No Diminished Hearing: No Endocrine: No Gastrointestinal Disorders: Yes GERD: Yes Glaucoma: No Genitourinary: No Hepatitis: No Hypertension: Yes Immune Disorder: No Implanted Vascular Access Dvce: No Medical other: Yes (GERD) Musculoskeletal: Yes Neurologic: Yes Psychiatric: No Reproductive: No Respiratory: Yes (ASTHMA) Immunizations Current: Yes Migraines: Yes Seizures: No Sleep Apnea: No Thyroid Disease: No Ulcer: Yes Tetanus Vaccination: < 5 Years Influenza Vaccination: Yes ?: Not Past Surgical History Abdominal Surgery: Yes (endoscopy and colonoscopy) Cardiac Surgery: No Genitourinary Surgery: No Gynecologic Surgery: Yes (tubal ligation and partial hysterectomy) Hysterectomy: Yes (PARTIAL ) Neurologic Surgery: No Pacemaker: No Thoracic Surgery: No Other Surgery: Yes (93' BREAST AUGMENTATION ) Social History Alcohol Use: No Tobacco Use: Yes (1.5PPD) Substance Use: No Allergies-Medications (Allergen,Severity, Reaction): Coded Allergies: Lipitor (Verified Adverse Reaction, Severe, Myalgia, 10/11/16) Codeine (Verified Adverse Reaction, Intermediate, Sedation, 10/11/16) Uncoded Allergies: SEASONAL ALLERGIES (Allergy, Mild, 03/13/08) estroven (Adverse Reaction, Intermediate, raised BP, 06/12/15) Reported Meds & Prescriptions Reported Meds & Active Scripts Active Symbicort Inh (Budesonide/Formoterol Fumarate) 160-4.5 Mcg/Act Aero 1 Puff INH Q12HR Klor-Con 10 (Potassium Chloride) 10 Meq Tab 10 Meq PO DAILY Ambien (Zolpidem Tartrate) 5 Mg Tab 5 Mg PO HS PRN Sodium Chloride 1 Gm Tab 2 Gm PO TID Ceftin (Cefuroxime Axetil) 500 Mg Tab 500 Mg PO Q12HR Norvasc (Amlodipine Besylate) 5 Mg Tab 5 Mg PO DAILY Lisinopril 20 Mg Tab 10 Mg PO DAILY Reported Clonazepam 1 Mg Tab 1 Mg PO BID Albuterol Neb (Albuterol Sulfate) 2.5 Mg/3 Ml Neb 2.5 Mg NEB Q2HR While awake Ventolin Hfa 18 GM Inh (Albuterol Sulfate) 90 Mcg/Act Aer 2 Puff INH Q6H PRN Gabapentin 100 Mg Cap 100 Mg PO 5 TIMES A DAY Alavert (Loratadine) 10 Mg Tab 10 Mg PO DAILY Review of Systems Except as stated in HPI: all other systems reviewed are Neg Physical Exam Narrative GENERAL: Well-nourished and well-developed pleasant patient in no acute distress who is nontoxic appearing. SKIN: Warm and dry. HEAD: Normocephalic and atraumatic. EYES: No injection, drainage, or hyphema noted. PERRLA. EOMI. ENT: No nasal drainage noted. Oropharynx is clear. NECK: Supple and the trachea is midline. CARDIOVASCULAR: Regular rate and rhythm. RESPIRATORY: Breath sounds are equal bilaterally with no accessory muscle use, wheezing, rhonchi, or crackles. GASTROINTESTINAL: Abdomen is soft, non-tender, and nondistended. MUSCULOSKELETAL: No obvious deformities, swelling, cyanosis, or ecchymosis is present throughout the upper and lower extremities. Patient has full range of motion without any signs of neurovascular compromise. Strength 5/5 upper and lower extremities equal bilaterally. NEUROLOGICAL: Awake, alert, and oriented. Normal speech and gait. Finger to nose test is normal. Cranial nerves are grossly intact. Data Data Last Documented VS Vital Signs Date Time Temp Pulse Resp B/P Pulse Ox O2 Delivery O2 Flow Rate FiO2 10/31/16 17:37 99 Room Air 10/31/16 17:11 97.7 84 118/74 10/31/16 17:03 18 Orders Electrocardiogram (10/31/16 17:20) Complete Blood Count With Diff (10/31/16 17:20) Comprehensive Metabolic Panel (10/31/16 17:20) Drug Screen, Random Urine (10/31/16 17:20) Prothrombin Time / Inr (Pt) (10/31/16 17:20) Act Partial Throm Time (Ptt) (10/31/16 17:20) Troponin I (10/31/16 17:20) Urinalysis - C+S If Indicated (10/31/16 17:20) Chest, Single Ap (10/31/16 17:20) Ct Brain W/O Iv Contrast(Rout) (10/31/16 17:20) Ecg Monitoring (10/31/16 17:20) Iv Access Insert/Monitor (10/31/16 17:20) Oximetry (10/31/16 17:20) Sodium Chloride 0.9% Flush (Ns Flush) (10/31/16 17:30) Sodium Chlor 0.9% 1000 Ml Inj (Ns 1000 M (10/31/16 17:20) Acetaminophen (Tylenol) (10/31/16 19:00) Admit Order (Ed Use Only) (10/31/16 19:03) 3% Saline Inj (10/31/16 19:06) Labs Laboratory Tests Test 10/31/16 17:30 White Blood Count 3.1 TH/MM3 Red Blood Count 3.57 MIL/MM3 Hemoglobin 10.2 GM/DL Hematocrit 29.9 % Mean Corpuscular Volume 83.7 FL Mean Corpuscular Hemoglobin 28.4 PG Mean Corpuscular Hemoglobin 33.9 % Concent Red Cell Distribution Width 14.1 % Platelet Count 97 TH/MM3 Mean Platelet Volume 8.8 FL Neutrophils (%) (Auto) 51.8 % Lymphocytes (%) (Auto) 41.3 % Monocytes (%) (Auto) 5.7 % Eosinophils (%) (Auto) 0.7 % Basophils (%) (Auto) 0.5 % Neutrophils # (Auto) 1.6 TH/MM3 Lymphocytes # (Auto) 1.3 TH/MM3 Monocytes # (Auto) 0.2 TH/MM3 Eosinophils # (Auto) 0.0 TH/MM3 Basophils # (Auto) 0.0 TH/MM3 CBC Comment AUTO DIFF Differential Comment AUTO DIFF CONFIRMED Platelet Estimate LOW Platelet Morphology Comment NORMAL Red Cell Morphology Comment NORMAL Prothrombin Time 11.1 SEC Prothromb Time International 1.0 RATIO Ratio Activated Partial 30.6 SEC Thromboplast Time Sodium Level 111 MEQ/L Potassium Level 3.9 MEQ/L Chloride Level 76 MEQ/L Carbon Dioxide Level 23.0 MEQ/L Anion Gap 12 MEQ/L Blood Urea Nitrogen 5 MG/DL Creatinine 0.42 MG/DL Estimat Glomerular Filtration 158 ML/MIN Rate Random Glucose 93 MG/DL Calcium Level 8.2 MG/DL Total Bilirubin 0.3 MG/DL Aspartate Amino Transf 20 U/L (AST/SGOT) Alanine Aminotransferase 22 U/L (ALT/SGPT) Alkaline Phosphatase 102 U/L Troponin I LESS THAN 0.02 NG/ML Total Protein 6.8 GM/DL Albumin 3.4 GM/DL MDM Medical Decision Making Medical Screen Exam Complete: Yes Emergency Medical Condition: Yes Differential Diagnosis Electrolyte abnormality versus TIA versus UTI versus other Narrative Course 51-year-old female is brought to the emergency department by EMS for evaluation of confusion and dizziness. Patient is afebrile, vital signs are stable. Physical examination is essentially unremarkable. No focal neurologic deficits. Patient has a history of hyponatremia with several recent admissions for the same, I reviewed the patient's EMR. IV access is obtained, labs have been drawn and sent. EKG shows normal sinus rhythm with no acute ST elevations or depressions. CBC shows pancytopenia. CBC shows severe hypernatremia with a sodium of 111. Troponin is less than 0.02. Coags are unremarkable. Chest x-ray shows left upper lobe mass consistent with previous chest x-ray. Head CT is negative for any Abnormalities. Patient will be admitted to the [facility] for severe hyponatremia. I discussed the case with my attending physician Dr. Das who is aware of the patients history, physical examination findings, and treatment plan. Physician Communication Physician Communication Dr. Das spoke with Dr. Nunn [facility] who agrees to admit the patient to his service. He requests 3% Saline ran at 30 mls/hr. Diagnosis Primary Impression: Hyponatremia Christie Britton Oct 31, 2016 17:21
[2016-10-31] MEDS ORDERED: SODIUM CHLORIDE 0.9% FLUSH 5 ML FLUSH IVF PRN (17:30)
[2016-10-31 17:37] VITALS: O2SAT 99
[2016-10-31 17:46] LABS: AUTOMATED NEUTROPHIL # 1.6 TH/MM3 (1.8-7.7); BASOPHIL % 0.5 % (0.0-2.0); EOSINOPHIL % 0.7 % (0.0-4.0); HEMATOCRIT 29.9 % (35.0-46.0); LYMPH % 41.3 % (9.0-44.0); LYMPHOCYTE # 1.3 TH/MM3 (1.0-4.8); MEAN CELL VOLUME 83.7 FL (80.0-100.0); MEAN CORPUSCULAR HEMOGLOBIN 28.4 PG (27.0-34.0); MEAN CORPUSCULAR HGB CONC 33.9 % (32.0-36.0); MONO % 5.7 % (0.0-8.0); NEUT % 51.8 % (16.0-70.0); PLATELET COUNT 97 TH/MM3 (150-450); RED BLOOD COUNT 3.57 MIL/MM3 (4.00-5.30); RED CELL DISTRIBUTION WIDTH 14.1 % (11.6-17.2); WHITE BLOOD COUNT 3.1 TH/MM3 (4.0-11.0)
[2016-10-31 17:56] LABS: APTT (PATIENT) 30.6 SEC (24.3-30.1); PROTHROMBIN TIME - PATIENT 11.1 SEC (9.8-11.6)
[2016-10-31 18:04] LABS: ALKALINE PHOSPHATASE 102 U/L (45-117); ALT (GPT) 22 U/L (10-53); ANION GAP 12 MEQ/L (5-15); AST (GOT) 20 U/L (15-37); BLOOD UREA NITROGEN 5 MG/DL (7-18); CHLORIDE 76 MEQ/L (98-107); GLOMERULAR FILTRATION RATE 158 ML/MIN (>89); POTASSIUM 3.9 MEQ/L (3.5-5.1); TOTAL BILIRUBIN ADULT 0.3 MG/DL (0.2-1.0)
[2016-10-31 18:12] LABS: SODIUM (NA) 111 MEQ/L (136-145)
[2016-10-31 18:13] LABS: HEMO FLAGS AUTO DIFF
[2016-10-31 18:14] LABS: PLATELET ESTIMATE SMEAR LOW (NORMAL); PLATELET MORPHOLOGY NORMAL (NORMAL); SCAN/DIFF AUTO DIFF CONFIRMED
--- NOTE | 2016-10-31 18:38 | RADRPT ---
EXAM DATE/TIME: 10/31/2016 17:59 [facility] COMPARISON: CT THORAX W/O CONTRAST, October 11, 2016, 22:53. INDICATIONS : Short of breath. MEDICAL HISTORY : History of lung cancer with metastases to liver and lymph nodes, COPD, asthma. SURGICAL HISTORY : Endoscopy. Breast augmentation. Port placement. ENCOUNTER: Initial ACUITY: 1 day PAIN SCORE: 0/10 LOCATION: Bilateral chest FINDINGS: Comparison the chest CT from October 11, 2016. Airspace disease in the left upper lobe has decreased b ut remains present overlying the left hilum. Right lung remains relatively clear. No effusion. Infuse -a-Port tip in superior vena cava. CONCLUSION: 1. Improvement in left upper lobe airspace disease since chest CT from October 11. Clem Ingram MD on October 31, 2016 at 18:34 Board Certified Radiologist. This report was verified electronically.
[2016-10-31] MEDS ORDERED: ACETAMINOPHEN 325 MG TAB PO ONE (19:00)
--- NOTE | 2016-10-31 19:00 | RADRPT ---
EXAM DATE/TIME: 10/31/2016 18:30 [facility] COMPARISON: CT BRAIN W/O CONTRAST, August 05, 2016, 11:34. INDICATIONS : Dizziness with confusion and trouble with speech today. RADIATION DOSE: 36.18 CTDIvol (mGy) MEDICAL HISTORY : Cardiovascular disease. Hypertension. Carcinoma, lung.copd SURGICAL HISTORY : Tubal ligation. Hysterectomy. ENCOUNTER: Initial ACUITY: 1 day PAIN SCALE: 0/10 LOCATION: cranial TECHNIQUE: Multiple contiguous axial images were obtained of the head. Using automated exposure control and adj ustment of the mA and/or kV according to patient size, radiation dose was kept as low as reasonably a chievable to obtain optimal diagnostic quality images. FINDINGS: CEREBRUM: The ventricles are normal for age. No evidence of midline shift, mass lesion, hemorrhage or acute in farction. No extra-axial fluid collections are seen. POSTERIOR FOSSA: The cerebellum and brainstem are intact. The 4th ventricle is midline. The cerebellopontine angle i s unremarkable. EXTRACRANIAL: The visualized portion of the orbits is intact. SKULL: The calvaria is intact. No evidence of skull fracture. CONCLUSION: Normal examination for a patient of this age. Clem Ingram MD on October 31, 2016 at 18:56 Board Certified Radiologist. This report was verified electronically.
[2016-10-31] MEDS ORDERED: 3% SALINE INJ 500 ML IV STA (19:06)
--- NOTE | 2016-10-31 19:11 | PD ---
Data Data Last Documented VS Vital Signs Date Time Temp Pulse Resp B/P Pulse Ox O2 Delivery O2 Flow Rate FiO2 10/31/16 17:37 99 Room Air 10/31/16 17:11 97.7 84 118/74 10/31/16 17:03 18 Orders Electrocardiogram (10/31/16 17:20) Complete Blood Count With Diff (10/31/16 17:20) Comprehensive Metabolic Panel (10/31/16 17:20) Drug Screen, Random Urine (10/31/16 17:20) Prothrombin Time / Inr (Pt) (10/31/16 17:20) Act Partial Throm Time (Ptt) (10/31/16 17:20) Troponin I (10/31/16 17:20) Urinalysis - C+S If Indicated (10/31/16 17:20) Chest, Single Ap (10/31/16 17:20) Ct Brain W/O Iv Contrast(Rout) (10/31/16 17:20) Ecg Monitoring (10/31/16 17:20) Iv Access Insert/Monitor (10/31/16 17:20) Oximetry (10/31/16 17:20) Sodium Chloride 0.9% Flush (Ns Flush) (10/31/16 17:30) Sodium Chlor 0.9% 1000 Ml Inj (Ns 1000 M (10/31/16 17:20) Acetaminophen (Tylenol) (10/31/16 19:00) Admit Order (Ed Use Only) (10/31/16 19:03) Labs Laboratory Tests Test 10/31/16 17:30 White Blood Count 3.1 TH/MM3 Red Blood Count 3.57 MIL/MM3 Hemoglobin 10.2 GM/DL Hematocrit 29.9 % Mean Corpuscular Volume 83.7 FL Mean Corpuscular Hemoglobin 28.4 PG Mean Corpuscular Hemoglobin 33.9 % Concent Red Cell Distribution Width 14.1 % Platelet Count 97 TH/MM3 Mean Platelet Volume 8.8 FL Neutrophils (%) (Auto) 51.8 % Lymphocytes (%) (Auto) 41.3 % Monocytes (%) (Auto) 5.7 % Eosinophils (%) (Auto) 0.7 % Basophils (%) (Auto) 0.5 % Neutrophils # (Auto) 1.6 TH/MM3 Lymphocytes # (Auto) 1.3 TH/MM3 Monocytes # (Auto) 0.2 TH/MM3 Eosinophils # (Auto) 0.0 TH/MM3 Basophils # (Auto) 0.0 TH/MM3 CBC Comment AUTO DIFF Differential Comment AUTO DIFF CONFIRMED Platelet Estimate LOW Platelet Morphology Comment NORMAL Red Cell Morphology Comment NORMAL Prothrombin Time 11.1 SEC Prothromb Time International 1.0 RATIO Ratio Activated Partial 30.6 SEC Thromboplast Time Sodium Level 111 MEQ/L Potassium Level 3.9 MEQ/L Chloride Level 76 MEQ/L Carbon Dioxide Level 23.0 MEQ/L Anion Gap 12 MEQ/L Blood Urea Nitrogen 5 MG/DL Creatinine 0.42 MG/DL Estimat Glomerular Filtration 158 ML/MIN Rate Random Glucose 93 MG/DL Calcium Level 8.2 MG/DL Total Bilirubin 0.3 MG/DL Aspartate Amino Transf 20 U/L (AST/SGOT) Alanine Aminotransferase 22 U/L (ALT/SGPT) Alkaline Phosphatase 102 U/L Troponin I LESS THAN 0.02 NG/ML Total Protein 6.8 GM/DL Albumin 3.4 GM/DL MDM Supervised Visit with KATINA: Yes Narrative Course I, Dr. HOBBS, have reviewed the advance practice practitioner's documentation and am in agreement, met with the patient face to face, made the diagnosis, and the medical decision making was done by me. *My assessment and Findings: Symptomatic hyponatremia requiring 3% saline and ICU admission Critical Care Narrative Aggregate critical care time was 30 minutes. Time to perform other separately billable procedures was not included in the critical care time. My time did not include minutes spent treating any other patients simultaneously or on activities that did not directly contribute to the patient's treatment. The services I provided to this patient were to treat and/or prevent clinically significant deterioration that could result in: , decompensation, deterioration I provided critical care services requiring my management, as noted below: Chart data review, documentation time, medication orders and management, vital sign assessments/reviewing monitor data, ordering and reviewing lab tests, ordering and interpreting/reviewing x-rays and diagnostic studies, care of the patient and discussion of the patient with the admitting physicians. Diagnosis Primary Impression: Hyponatremia Carrie Hobbs DO Oct 31, 2016 19:11
[2016-10-31 19:25] VITALS: BP 115/68; PULSE 78; RESP 16; O2SAT 98
[2016-10-31] MEDS ORDERED: MISCELLANEOUS NURSING INFORMATION XX SCH (19:45)
[2016-10-31] MEDS ORDERED: CHLORHEXIDINE GLUCONATE 2 % 1 PACK (2 CLOTHS) TOP PRN (19:45)
[2016-10-31] MEDS ORDERED: RESP: ALBUTEROL 2.5 MG/IPRATROPIUM 0.5 MG NEB (PRN) INH (19:45)
[2016-10-31] MEDS: RESP: ALBUTEROL 2.5 MG/IPRATROPIUM 0.5 MG NEB (SCH) INH (22:27)
[2016-11-01] VITALS (12 sets, daily range): BP systolic 116–147; BP diastolic 71–84; PULSE 81–106; RESP 16–26; TEMP 97.5–98.1; O2SAT 97–100
[2016-11-01] MEDS ORDERED: ZOLPIDEM TARTRATE 5 MG TAB PO ONE
[2016-11-01] MEDS: RESP: ALBUTEROL 2.5 MG/IPRATROPIUM 0.5 MG NEB (SCH) INH (03:51)
[2016-11-01] MEDS: CHLORHEXIDINE GLUCONATE 2 % 1 PACK (2 CLOTHS) TOP SCH (04:00)
[2016-11-01] MEDS: ACETAMINOPHEN 325 MG TAB PO PRN ×3 (04:06→15:18)
[2016-11-01 04:18] LABS: AUTOMATED NEUTROPHIL # 1.3 TH/MM3 (1.8-7.7); BASOPHIL # 0.1 TH/MM3 (0-0.2); BASOPHIL % 1.6 % (0.0-2.0); EOSINOPHIL % 0.5 % (0.0-4.0); HEMATOCRIT 25.8 % (35.0-46.0); LYMPH % 59.4 % (9.0-44.0); LYMPHOCYTE # 2.5 TH/MM3 (1.0-4.8); MEAN CELL VOLUME 83.7 FL (80.0-100.0); MEAN CORPUSCULAR HEMOGLOBIN 29.2 PG (27.0-34.0); MEAN CORPUSCULAR HGB CONC 34.9 % (32.0-36.0); MONO % 6.9 % (0.0-8.0); NEUT % 31.6 % (16.0-70.0); PLATELET COUNT 91 TH/MM3 (150-450); RED BLOOD COUNT 3.09 MIL/MM3 (4.00-5.30); RED CELL DISTRIBUTION WIDTH 14.2 % (11.6-17.2); WHITE BLOOD COUNT 4.2 TH/MM3 (4.0-11.0)
[2016-11-01 04:33] LABS: HEMO FLAGS AUTO DIFF
[2016-11-01 04:50] LABS: BICARBONATE 20.8 MEQ/L (21.0-32.0); MAGNESIUM 1.1 MG/DL (1.5-2.5); POTASSIUM 3.2 MEQ/L (3.5-5.1)
[2016-11-01] MEDS ORDERED: POTASSIUM CHLOR 20 MEQ PREMIX 100 ML IV PRN ×3 (05:15)
[2016-11-01] MEDS ORDERED: MAGNESIUM OXIDE 400 MG TAB PO PRN ×2 (05:15)
[2016-11-01] MEDS ORDERED: POTASSIUM PHOSPHATE MONOBASIC 500 MG TAB PO PRN ×2 (05:15)
[2016-11-01] MEDS ORDERED: MAGNESIUM SULFATE INJ 2 GM in SODIUM CHLORIDE 0.9% INJ 96 ML IV PRN ×2 (05:15)
[2016-11-01] MEDS ORDERED: POTASSIUM PHOSPHATE INJ 30 MMOL in SODIUM CHLOR 0.9% 250 ML INJ 250 ML IV PRN ×2 (05:15)
[2016-11-01] MEDS ORDERED: FUROSEMIDE 20 MG/2 ML VIAL IV PUSH ONE (05:15)
[2016-11-01] MEDS ORDERED: SODIUM PHOSPHATE INJ 30 MMOL in SODIUM CHLOR 0.9% 250 ML INJ 240 ML IV PRN ×2 (05:15)
[2016-11-01] MEDS ORDERED: POTASSIUM CL 40 MEQ/30 ML LIQ UDC PO/TUBE PRN ×4 (05:15)
[2016-11-01] MEDS ORDERED: POTASSIUM PHOSPHATE MONOBASIC 500 MG TAB PO/TUBE PRN ×2 (05:15)
[2016-11-01] MEDS ORDERED: POTASSIUM CHLOR 40 MEQ PREMIX 100 ML IV PRN ×4 (05:15)
[2016-11-01] MEDS ORDERED: MAGNESIUM SULFATE INJ 4 GM in SODIUM CHLORIDE 0.9% INJ 92 ML IV PRN ×2 (05:15)
[2016-11-01] MEDS ORDERED: NS + KCL 20 MEQ INJ 1,000 ML IV SCH (05:30)
[2016-11-01] MEDS ORDERED: ALBUTEROL SULFATE 90 MCG/ACT HFA 8 GM INHALER INH PRN (05:30)
[2016-11-01] MEDS: POTASSIUM CHLOR 20 MEQ PREMIX 100 ML IV PRN ×3 (05:51→11:09)
[2016-11-01] MEDS ORDERED: RESP: ALBUTEROL 2.5 MG/3 ML NEB (PRN) NEB SCH (06:00)
[2016-11-01] MEDS ORDERED: FUROSEMIDE 20 MG/2 ML VIAL IV PUSH SCH (06:00)
[2016-11-01 07:10] LABS: ACANTHOCYTES OCC (NORMAL); KERATOCYTES OCC (NORMAL)
[2016-11-01 07:11] LABS: HELMET CELLS OCC (NORMAL); PLATELET ESTIMATE SMEAR LOW (NORMAL); PLATELET MORPHOLOGY NORMAL (NORMAL); SCAN/DIFF AUTO DIFF CONFIRMED
[2016-11-01] MEDS: RESP: ALBUTEROL 2.5 MG/3 ML NEB (SCH) NEB ×8 (07:55→23:30)
--- NOTE | 2016-11-01 08:43 | MH ---
cc: MARGARITA DELGADO M.D. DATE OF ADMISSION: 10/31/2016 DATE OF 1965 HISTORY OF PRESENT ILLNESS The patient is a 51-year-old female with past medical history of COPD, gastroesophageal reflux disease, recent diagnosis of metastatic small cell lung cancer diagnosed via CT-guided biopsy of a liver mass on October 14. The patient underwent chemotherapy on October 22 with cisplatin and ROLLED HAM LACER-16. In addition she has a history of SIADH, normocytic anemia, chronic hyponatremia and hypertension. She presented to [facility] ED via EMS for evaluation of dizziness and confusion. Per the ED report, the patient became confused and had difficulty finding words. Also, her states that she has been having decreased p.o. intake along with feeling nauseous. Her baseline sodium level ranges between 126-133. Her laboratory data showed severe hyponatremia with a sodium level of 111. She is also on salt tablets at home. Due to her mental status, a CT scan of the brain was obtained which showed no evidence of any acute intracranial process. In the ED she was given 1 liter bolus of normal saline and placed on 3% saline at 30 mL per hour. She denies any chest pain, shortness of breath, cough or any constitutional symptoms. Her states that she had similar presentations normally when her sodium is low. PAST MEDICAL HISTORY Significant for - 1. Recent diagnosis of metastatic small cell lung cancer to the liver status post chemotherapy. 2. SIADH. 3. Normocytic anemia. 4. Hypertension. 5. COPD. 6. Gastroesophageal reflux disease. PAST SURGICAL HISTORY 1. Previous port placement. 2. Previous tubal ligation and partial hysterectomy. 3. Previous endoscopy and colonoscopy. ALLERGIES LIPITOR. CODEINE. ESTROVEN. REPORTED MEDICATIONS 1. Symbicort. 2. Ambien. 3. Sodium. 4. Norvasc. 5. Lisinopril. 6. Loratadine. FAMILY HISTORY Noncontributory. SOCIAL HISTORY The patient has a history of tobacco use. Nondrinker. REVIEW OF SYSTEMS As per HPI. The rest of the review of systems is unremarkable. PHYSICAL EXAMINATION GENERAL: A 51-year-old female lying in bed in no acute respiratory distress. VITAL SIGNS: Temperature 97.7, pulse of 82, blood pressure 113/75, saturation 99% on room air. HEENT: Atraumatic, normocephalic. Pupils equal and reactive to light and accommodation. Extraocular muscles intact. Conjunctivae pink. Nonicteric sclerae. Oral mucosa within normal. NECK: Supple. No JVD, adenopathy or thyromegaly. Trachea in the midline. CARDIOVASCULAR EXAM: Regular rate and rhythm. Normal S1-S2. No murmurs, rubs or gallops noted. PULMONARY EXAM: Bilateral equal entry. No rales or wheezing. ABDOMEN: Soft, nontender, no distension. Positive bowel sounds. EXTREMITIES: No cyanosis, clubbing or edema. NEURO: No focal sensory deficit. LABORATORY DATA Sodium 111, calcium 3.9, chloride 76, CO2 23, BUN of 5, creatinine 0.42, glucose 93. AST 20, ALT 22, total bilirubin 0.3. Troponin less than 0.02. WBC 3.1, hemoglobin 10.2, hematocrit 29, platelet count of 97. INR 1.0. PT 11.1, PTT 30.6. RADIOGRAPHIC STUDIES Chest x-ray showed improvement in left upper lobe airspace disease compared to prior study from October 11. CT scan of the brain - No acute intracranial process. IMPRESSION 1. Altered mental status, likely secondary to hyponatremia. 2. Severe hyponatremia. 3. Metastatic small cell lung CA to the liver, status post chemotherapy on October 22. 4. 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 5. Normocytic anemia. 6. Thrombocytopenia. 7. Hypertension. 8. COPD. 9. GERD. 10. Port placement. RECOMMENDATIONS 1. Monitor neuro status and avoid any sedatives. CT scan of the brain in the ED negative for acute intracranial process. 2. Oxygen p.r.n. to maintain sats above 92%. 3. Bronchodilators in the form of DuoNeb and Symbicort. 4. Monitor heart rate and blood pressure closely and maintain MAP greater than 65 mmHg. 5. Monitor renal function and electrolyte replacement as needed. 6. She was given 1 liter bolus of normal saline in the ED and placed on 30% saline at 30 mL/hour. We will monitor sodium level q.4 hours. 7. Check serum and urine osmolality and we will obtain a baseline TSH level. We will consult nephrology service given underlying history of chronic hyponatremia. 8. Monitor CBC for signs of infections which include fever and WBC. 9. Chest x-ray in the ED showed improvements in her left upper lobe airspace disease compared to prior study of October 11. 10. We will consult Dr. Gama from Oncology Service as the patient is known to him. She is status post chemotherapy on October 22 with cisplatin and ROLLED HAM LACER-16. 11. Sliding scale insulin if needed for glycemic control. 12. GI prophylaxis with Protonix 40 mg daily and DVT prophylaxis with SCDs. We will hold off on chemical prophylaxis for now given underlying thrombocytopenia. Critical care time 50 minutes excluding procedures. MD MACY Sánchez/MICK /10:43 PM /8:23 AM
[2016-11-01 08:54] LABS: BLOOD, URINE NEG (NEG); COMMENT (UR) CATH-CULT NOT IND; CULTURE IF INDICATED CATH CULTURE NOT IND; GLUCOSE,URINE NEG (NEG); KETONE, URINE NEG (NEG); NITRITE,URINE NEG (NEG); PH, URINE 6.5 (5.0-8.5); URINE COLOR COLORLESS (YELLW/STRAW)
[2016-11-01] MEDS: BUDESONIDE-FORMOTEROL 160/4.5 MCG INHALER INH SCH ×2 (09:00→22:20)
--- NOTE | 2016-11-01 09:32 | HHI.CCPN ---
Subjective Remarks/Hospital Course DX: Symptomatic Hyponatremia 10/31: The patient is a 51-year-old female with past medical history of COPD, gastroesophageal reflux disease, recent diagnosis of metastatic small cell lung cancer diagnosed via CT-guided biopsy of a liver mass on October 14. The patient underwent chemotherapy on October 22 with cisplatin and DIRECTOR ENTERPRISE SYSTEMS-16. In addition she has a history of SIADH, normocytic anemia, chronic hyponatremia and hypertension. She presented to [facility] ED via EMS for evaluation of dizziness and confusion. The patient became confused and had difficulty finding words. Also, her states that she has been having decreased p.o. intake along with feeling nauseous. Her baseline sodium level ranges between 126-133. 11/01: Speech is improved this morning. Patient still having slowed mentation. Objective Vital Signs Date Time Temp Pulse Resp B/P Pulse Ox O2 Delivery O2 Flow Rate FiO2 11/01/16 06:00 81 11/01/16 04:00 97.7 20 147/73 100 11/01/16 00:27 Room Air Result Diagram: 11/01/16 0330 11/01/16 0350 Objective Remarks PHYSICAL EXAMINATION GENERAL: Talkative 51-year-old female. VITAL SIGNS: Temperature 98.7, pulse of 81, blood pressure 147/85, saturation 97% on room air. HEENT: Atraumatic, normocephalic. NECK: Supple. Airway widely patent. Trachea in the midline. CARDIOVASCULAR EXAM: Regular rate and rhythm. Normal S1-S2. No murmurs, rubs or gallops noted. No JVD. PULMONARY EXAM: Bilateral equal entry. No rales or wheezing. ABDOMEN: Soft, nontender, no distension. Positive bowel sounds. EXTREMITIES: No cyanosis, clubbing or edema. Well perfused. NEURO: No focal sensory deficit. O X 2, speech still slightly garbled but better. A/P Assessment and Plan IMPRESSION: 1. Altered mental status, likely secondary to hyponatremia. 2. Severe hyponatremia. 3. Metastatic small cell lung CA to the liver, status post chemotherapy on October 22. 4. 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 5. Normocytic anemia. 6. Thrombocytopenia. 7. Hypertension. 8. COPD. 9. GERD. 10. Port placement. RECOMMENDATIONS: 1. Monitor neuro status and avoid any sedatives. 2. Oxygen p.r.n. to maintain sats above 92%. 3. Bronchodilators in the form of DuoNeb and Symbicort. 4. Monitor heart rate and blood pressure closely and maintain MAP greater than 65 mmHg. 5. Monitor renal function and electrolyte replacement as needed. 6. NS at 42 ml/hr. Q6h lytes. 7. Check serum and urine osmolality and we will obtain a baseline TSH level. We will consult nephrology service given underlying history of chronic hyponatremia. 8. Monitor CBC for signs of infections which include fever and WBC. 9. Chest x-ray in the ED showed improvements in her left upper lobe airspace disease compared to prior study of October 11. 10. We will consult Dr. Gama from Oncology Service as the patient is known to him. She is status post chemotherapy on October 22 with cisplatin and DIRECTOR ENTERPRISE SYSTEMS-16. 11. Sliding scale insulin if needed for glycemic control. 12. GI prophylaxis with Protonix 40 mg daily and DVT prophylaxis with SCDs. We will hold off on chemical prophylaxis for now given underlying thrombocytopenia. Overall impression: Chronic moderate hyponatremia from SIADH. Stopped taking salt pills, holding onto free water. Correct slowly to baseline mid 120s. Baudilio Willett MD Nov 01, 2016 09:32
[2016-11-01] MEDS: PANTOPRAZOLE SODIUM 40 MG VIAL IV SCH (09:34)
--- NOTE | 2016-11-01 12:41 | PD.CONS ---
HPI Service Nephrology Consult Requested By Primary Care Physician Adele Chow History of Present Illness The patient is a 51-year-old female with past medical history of COPD, gastroesophageal reflux disease, recent diagnosis of metastatic small cell lung cancer diagnosed via CT-guided biopsy of a liver mass on October 14. The patient underwent chemotherapy on October 22 with cisplatin and PATIENT FINANCIAL REPRESENTATIVE-16. In addition she has a history of SIADH, normocytic anemia, chronic hyponatremia and hypertension. She presented to [facility] ED via EMS for evaluation of dizziness and confusion. The patient became confused and had difficulty finding words. Also, her states that she has been having decreased p.o. intake along with feeling nauseous. Her baseline sodium level ranges between 126-133. Her admitting serum Na was 111. She was started on 3 % Sodium chloride and also NS with potassium. Most recent serum Na is 120, a correction of about 9 mEq/L in about 17.5 hours. Review of Systems Constitutional: COMPLAINS OF: Fatigue Respiratory: DENIES: Cough Cardiovascular: DENIES: Chest pain, Dyspnea on Exertion Gastrointestinal: DENIES: Abdominal pain, Black stools Musculoskeletal: DENIES: Joint pain, Muscle aches Neurologic: DENIES: Abnormal gait Past Family Social History Allergies: Coded Allergies: Lipitor (Verified Adverse Reaction, Severe, Myalgia, 10/11/16) Codeine (Verified Adverse Reaction, Intermediate, Sedation, 10/11/16) Uncoded Allergies: SEASONAL ALLERGIES (Allergy, Mild, 03/13/08) estroven (Adverse Reaction, Intermediate, raised BP, 06/12/15) Past Medical History GERD COPD Tobacco abuse Metastatic lung cancer Reported Medications Symbicort Inh (Budesonide/Formoterol Fumarate) 160-4.5 Mcg/Act Aero 1 Puff INH Q12HR Klor-Con 10 (Potassium Chloride) 10 Meq Tab 10 Meq PO DAILY Ambien (Zolpidem Tartrate) 5 Mg Tab 5 Mg PO HS PRN Sodium Chloride 1 Gm Tab 2 Gm PO TID Ceftin (Cefuroxime Axetil) 500 Mg Tab 500 Mg PO Q12HR Norvasc (Amlodipine Besylate) 5 Mg Tab 5 Mg PO DAILY Lisinopril 20 Mg Tab 10 Mg PO DAILY Reported Clonazepam 1 Mg Tab 1 Mg PO BID Albuterol Neb (Albuterol Sulfate) 2.5 Mg/3 Ml Neb 2.5 Mg NEB Q2HR While awake Ventolin Hfa 18 GM Inh (Albuterol Sulfate) 90 Mcg/Act Aer 2 Puff INH Q6H PRN Gabapentin 100 Mg Cap 100 Mg PO 5 TIMES A DAY Alavert (Loratadine) 10 Mg Tab 10 Mg PO DAILY Active Ordered Medications Current Medications Medications (Trade) Dose Ordered Sig/Ermias Route Start Time Stop Time Status Last Admin (NS Flush) 2 ml UNSCH PRN IVF 10/31/16 17:30 (Protonix Inj) 40 mg DAILY IV 11/01/16 09:00 11/01/16 09:34 Miscellaneous Information 1 [id number] XX 10/31/16 19:45 (Chlorhexidine 2% Cloth) 3 pack Taper DAILY@04 TOP 11/01/16 04:00 10/28/17 03:59 (Chlorhexidine 2% Cloth) 3 pack UNSCH PRN TOP 10/31/16 19:45 Acetaminophen 650 mg 650 mg Q4H PRN PO 11/01/16 04:00 11/01/16 09:34 Potassium Chloride 100 ml @ 50 mls/hr Q2H PRN IV 11/01/16 05:15 (KCl 20 Meq Premix Inj) 100 ml @ 50 mls/hr Q2H PRN IV 11/01/16 05:15 11/01/16 08:20 Potassium Chloride 40 meq 40 meq UNSCH PRN PO/TUBE 11/01/16 05:15 Potassium Chloride 100 ml @ 25 mls/hr UNSCH PRN IV 11/01/16 05:15 Potassium Chloride 100 ml @ 50 mls/hr Q2H PRN IV 11/01/16 05:15 (Magnesium Sulfate Inj/NS Inj) 100 ml @ 50 mls/hr UNSCH PRN IV 11/01/16 05:15 Magnesium Oxide 800 mg 800 mg UNSCH PRN PO 11/01/16 05:15 (Magnesium Sulfate Inj/NS Inj) 100 ml @ 50 mls/hr UNSCH PRN IV 11/01/16 05:15 Potassium Phosphate 2000 mg 2,000 mg Q4H PRN PO 11/01/16 05:15 (Sodium Phosphate Inj/NS 250 ml Inj) 250 ml @ 42 mls/hr UNSCH PRN IV 11/01/16 05:15 11/01/16 06:25 (KCl 40 Meq/30 ml Liq) 40 meq UNSCH PRN PO/TUBE 11/01/16 05:15 Potassium Phosphate 2000 mg 2,000 mg UNSCH PRN PO/TUBE 11/01/16 05:15 Potassium Phosphate 30 mmol/ Sodium Chloride 260 ml @ 42 mls/hr UNSCH PRN IV 11/01/16 05:15 Potassium Chloride 100 ml @ 50 mls/hr Q2H PRN IV 11/01/16 05:15 (KCl 20 Meq Premix Inj) 100 ml @ 50 mls/hr Q2H PRN IV 11/01/16 05:15 Potassium Chloride 40 meq 40 meq UNSCH PRN PO/TUBE 11/01/16 05:15 Potassium Chloride 100 ml @ 25 mls/hr UNSCH PRN IV 11/01/16 05:15 Potassium Chloride 100 ml @ 50 mls/hr Q2H PRN IV 11/01/16 05:15 (Magnesium Sulfate Inj/NS Inj) 100 ml @ 50 mls/hr UNSCH PRN IV 11/01/16 05:15 11/01/16 06:26 Magnesium Oxide 800 mg 800 mg UNSCH PRN PO 11/01/16 05:15 (Magnesium Sulfate Inj/NS Inj) 100 ml @ 50 mls/hr UNSCH PRN IV 11/01/16 05:15 Potassium Phosphate 2000 mg 2,000 mg Q4H PRN PO 11/01/16 05:15 (Sodium Phosphate Inj/NS 250 ml Inj) 250 ml @ 42 mls/hr UNSCH PRN IV 11/01/16 05:15 (KCl 40 Meq/30 ml Liq) 40 meq UNSCH PRN PO/TUBE 11/01/16 05:15 Potassium Phosphate 2000 mg 2,000 mg UNSCH PRN PO/TUBE 11/01/16 05:15 Potassium Phosphate 30 mmol/ Sodium Chloride 260 ml @ 42 mls/hr UNSCH PRN IV 11/01/16 05:15 (NS + KCl 20 Meq Inj) 1,000 ml @ 42 mls/hr [id number] IV 11/01/16 05:30 11/01/16 05:52 (Lasix Inj) 20 mg BID@06,18 IV PUSH 11/01/16 06:00 11/02/16 22:00 (Proair Hfa Inh) 2 puff Q6H PRN INH 11/01/16 05:30 (Symbicort 160-4.5 Inh) 1 puff Q12HR INH 11/01/16 09:00 Family History non contributory Social History History of tobacco abuse. Physical Exam Vital Signs Vital Signs Date Time Temp Pulse Resp B/P Pulse Ox O2 Delivery O2 Flow Rate FiO2 11/01/16 08:00 91 11/01/16 08:00 97.5 91 26 117/84 97 11/01/16 06:00 81 11/01/16 04:00 97.7 92 20 147/73 100 11/01/16 04:00 90 11/01/16 04:00 101 11/01/16 00:27 82 16 121/71 98 Room Air 10/31/16 19:25 78 16 115/68 98 Room Air 10/31/16 17:37 99 Room Air 10/31/16 17:11 96 Room Air 10/31/16 17:11 97.7 84 118/74 99 Room Air 10/31/16 17:03 97.7 80 18 118/78 96 Physical Exam GENERAL: she is oriented, knows she is in the hospital. Knows her name. SKIN: Warm and dry. HEAD: Normocephalic. EYES: No scleral icterus. No injection or drainage. NECK: Supple, trachea midline. No JVD or lymphadenopathy. CARDIOVASCULAR: Regular rate and rhythm without murmurs, gallops, or rubs. RESPIRATORY: Breath sounds equal bilaterally. No accessory muscle use. GASTROINTESTINAL: Abdomen soft, non-tender, nondistended. MUSCULOSKELETAL: No cyanosis, or edema. BACK: Nontender without obvious deformity. No CVA tenderness. Laboratory Laboratory Tests Test 10/31/16 10/31/16 11/01/16 11/01/16 17:30 22:00 03:30 03:50 White Blood Count 3.1 4.2 Red Blood Count 3.57 3.09 Hemoglobin 10.2 9.0 Hematocrit 29.9 25.8 Mean Corpuscular Volume 83.7 83.7 Mean Corpuscular Hemoglobin 28.4 29.2 Mean Corpuscular Hemoglobin 33.9 34.9 Concent Red Cell Distribution Width 14.1 14.2 Platelet Count 97 91 Mean Platelet Volume 8.8 9.8 Neutrophils (%) (Auto) 51.8 31.6 Lymphocytes (%) (Auto) 41.3 59.4 Monocytes (%) (Auto) 5.7 6.9 Eosinophils (%) (Auto) 0.7 0.5 Basophils (%) (Auto) 0.5 1.6 Neutrophils # (Auto) 1.6 1.3 Lymphocytes # (Auto) 1.3 2.5 Monocytes # (Auto) 0.2 0.3 Eosinophils # (Auto) 0.0 0.0 Basophils # (Auto) 0.0 0.1 CBC Comment AUTO DIFF AUTO DIFF Differential Comment AUTO DIFF AUTO DIFF CONFIRMED CONFIRMED Platelet Estimate LOW LOW Platelet Morphology Comment NORMAL NORMAL Red Cell Morphology Comment NORMAL Prothrombin Time 11.1 Prothromb Time International 1.0 Ratio Activated Partial 30.6 Thromboplast Time Sodium Level 111 112 113 Potassium Level 3.9 3.2 Chloride Level 76 79 Carbon Dioxide Level 23.0 20.8 Anion Gap 12 13 Blood Urea Nitrogen 5 3 Creatinine 0.42 0.36 Estimat Glomerular Filtration 158 189 Rate Random Glucose 93 84 Calcium Level 8.2 8.0 Total Bilirubin 0.3 Aspartate Amino Transf 20 (AST/SGOT) Alanine Aminotransferase 22 (ALT/SGPT) Alkaline Phosphatase 102 Troponin I LESS THAN 0.02 Total Protein 6.8 Albumin 3.4 Serum Osmolality 226 Thyroid Stimulating Hormone 0.398 3rd Gen Helmet Cells OCC Acanthocytes OCC Keratocytes OCC Phosphorus Level 2.1 Magnesium Level 1.1 Test 11/01/16 11/01/16 07:00 10:00 Urine Color COLORLESS Urine Turbidity CLEAR Urine pH 6.5 Urine Specific Karthaus 1.004 Urine Protein NEG Urine Glucose (UA) NEG Urine Ketones NEG Urine Occult Blood NEG Urine Nitrite NEG Urine Bilirubin NEG Urine Urobilinogen LESS THAN 2.0 Urine Leukocyte Esterase NEG Urine RBC 1 Urine WBC LESS THAN 1 Microscopic Urinalysis Comment CATH-CULT NOT IND Sodium Level 120 Result Diagram: 11/01/16 0330 11/01/16 1000 Assessment and Plan Problem List: (1) Hyponatremia Plan: due to SIADH, resulting from small cell lung cancer. She was initiated on 3 % saline due to neurological symptoms apparently noted yesterday. Recommendation is to correct serum Na by about 6-8 mEq in 24 hours. Her current rate of correction is faster than desired. I have asked the RN to stop both 3 % saline and 0.9% NS. Repeat serum Na, continue to monitor. If the serum Na increases, recommend desmopressin. If it continues to decrease, consider Tolvaptan tomorrow as she now does not have neurological symptoms. No need for fluid restriction while on Tolvaptan. On the skilled nursing, she will need fluid restriction and possibly salt tablets with loop diuretic. To complete the workup, I will obtain urine osmolality, urine Na, and serum uric acid. (2) Hypokalemia Plan: replace as needed. (3) SIADH (syndrome of inappropriate ADH production) Plan: due to small cell cancer of the lung. (4) SCLC (small cell lung carcinoma) Plan: She has received chemotherapy. Metastatic, has liver lesion that was biopsied. Assessment and Plan Thanks for the consult. Santiago Elliott MD Nov 01, 2016 12:41
[2016-11-01] MEDS ORDERED: POTASSIUM CHLORIDE 10 MEQ CONTROLLED RELEASE TAB PO ONE (12:45)
[2016-11-01 16:51] LABS: URIC ACID 1.1 MG/DL (2.6-6.0)
--- NOTE | 2016-11-01 16:52 | EKG ---
Date Performed: 10/31/2016 Time Performed: 17:50:12 PTAGE: 51 years EKG: Sinus rhythm POSSIBLE RIGHT VENTRICULAR CONDUCTION DELAY Compared to prior tracing no significant change BORDERLI NE ECG PREVIOUS TRACING : 10/17/2016 12.30 DOCTOR: Zelda Smith Interpretating Date/Time 11/01/2016 16:51:22
[2016-11-01 18:59] LABS: AMPHETAMINE, URINE NEG (NEG); BARBITURATES, URINE NEG (NEG); COCAINE, URINE NEG (NEG)
[2016-11-01 23:11] LABS: POTASSIUM 4.1 MEQ/L (3.5-5.1)
--- NOTE | 2016-11-01 23:39 | MB ---
cc: LISA HOFFMANN DATE OF CONSULTATION: 11/01/2016 Date of : 1965 REASON FOR CONSULTATION Patient with a history of small-cell lung cancer presents with acute mental status changes and hyponatremia. CHIEF COMPLAINT "I am doing better." HISTORY OF PRESENT ILLNESS: Ms. Galaviz is a 51 year-old female who was recently diagnosed with extensive stage small cell lung cancer. She has metastatic disease to the liver. She has a long history of COPD and tobacco abuse. The patient was brought to the emergency department after she acutely became confused and had difficulty with speech. The patient was found to be hyponatremic on admission with a sodium level of 111. The patient was discharged home with salt tabs and she states that she ran out of salt tabs three to four days ago and has not had them since then. In the emergency department, she had a CT scan of her brain which did not show any acute intracranial process. The patient was started on 3% saline at 30 cc per hour. Her sodium had subsequently improved to 120 today. She is more alert and awake. She does not have any other complaints. REVIEW OF SYSTEMS: A comprehensive 14-point review of systems was completed which is negative except as described in the HPI. PAST MEDICAL HISTORY 1. Extensive stage small cell lung cancer. 2. COPD. 3. Tobacco abuse. 4. Gastroesophageal reflux disease. 5. SIADH. PAST SURGICAL HISTORY: Liver biopsy. MEDICATIONS: 6. Symbicort one puff INH q12 hours. 7. Klor-Con 10 mEq 1 tablet p.o. daily. 8. Ambien 5 mg one tablet p.o. q.h.s. 9. Sodium chloride 1 gram tabs 2 grams p.o. t.i.d. 10. Ceftin 500 mg one tablet p.o. q.12 h. 11. Norvasc 5 mg one tablet p.o. daily 12. Lisinopril 20 mg tablet p.o. daily. 13. Clonazepam 1 milligram, one tablet p.o. t.i.d. 14. Gabapentin 100 milligram one tablet p.o. five times a day. 15. Loratadine 10 milligrams one tablet p.o. daily FAMILY HISTORY: Reviewed, noncontributory to this admission. SOCIAL HISTORY: She is an ex-smoker, had than more than 30 pack-year smoking history. She does not drink alcohol. No illicit drug use. ALLERGIES LIPITOR AND CODEINE PHYSICAL EXAMINATION Vital signs: Blood pressure is 117/84, respiratory rate 14, pulse in the 90s, temperature 97.5, pulse oximetry is 97% on room air. GENERAL: Thin female in no apparent distress. She is alert and oriented. HEENT: Pupils are equal, round, reactive to light. EOMI. No oral thrush. No oral lesions. Neck is supple. No JVD, no bruits. No lymphadenopathy. Chest: Clear to auscultation bilaterally. Cardiac: S1-S2 regular rate and rhythm. Abdomen: Soft, nontender, nondistended, bowel sounds are present. Extremities: Without any edema, erythema or cyanosis. Skin: Without any lesions or bruises. Neuro: She is grossly alert and oriented. No focal deficits. Psychiatric: Mood and affect appropriate. LABORATORY DATA: WBC is 4.2, hemoglobin is 9. MCV is 83.7, platelet count is 91. Sodium is 113, most recent one is 120. Potassium 3.2, chloride is 79. CO2 is 20.8, BUN is 3, creatinine is 0.36. AST is 20, ALT is 22. IMAGING STUDIES: Reviewed in the EMR. ASSESSMENT AND PLAN: The patient is a 51 year-old female with a diagnosis of extensive stage small cell lung cancer who has received one cycle of carboplatin and etoposide. She was admitted to the hospital after she presented with confusion and difficulty with speech. She was found to have: 1. Hyponatremia secondary to SIADH. Apparently she ran out of salt tabs. Sodium on admission was 111. She was started on hypertonic solution with a rapid improvement in her sodium levels and I agree with nephrology colleague that we need to be careful with an increased rate of correction. 3% normal saline has been stopped. We will restart the patient on salt tabs at 2 grams p.o. t.i.d. Will have free water restriction of 800 cc per day. Appreciate nephrology recommendations. 2. Hypokalemia. Replace potassium. 3. Small cell lung carcinoma, status post treatment with cisplatin, etoposide. She will need outpatient follow up. She will be due for her second cycle of chemotherapy very soon. Thank you for allowing me to participate in the care of this patient. I will continue to follow this patient along. MD PRAVEEN Brown /10:28 PM /11:14 PM EMELI
[2016-11-02] VITALS (12 sets, daily range): BP systolic 92–164; BP diastolic 63–93; PULSE 78–109; RESP 11–25; TEMP 97.2–98.6; O2SAT 100
[2016-11-02] MEDS: RESP: ALBUTEROL 2.5 MG/3 ML NEB (SCH) NEB (01:04)
[2016-11-02] MEDS: CHLORHEXIDINE GLUCONATE 2 % 1 PACK (2 CLOTHS) TOP SCH (05:27)
[2016-11-02] MEDS ORDERED: 2% NS 1000 ML IV SCH ×2 (05:30)
--- NOTE | 2016-11-02 07:19 | HHI.CCPN ---
Subjective Remarks/Hospital Course DX: Symptomatic Hyponatremia 10/31: The patient is a 51-year-old female with past medical history of COPD, gastroesophageal reflux disease, recent diagnosis of metastatic small cell lung cancer diagnosed via CT-guided biopsy of a liver mass on October 14. The patient underwent chemotherapy on October 22 with cisplatin and CUSTOMER SUCCESS DIRECTOR-16. In addition she has a history of SIADH, normocytic anemia, chronic hyponatremia and hypertension. She presented to [facility] ED via EMS for evaluation of dizziness and confusion. The patient became confused and had difficulty finding words. Also, her states that she has been having decreased p.o. intake along with feeling nauseous. Her baseline sodium level ranges between 126-133. 11/01: Speech is improved this morning. Patient still having slowed mentation. 11/02: Continued efforts to slowly raise sodium level. No change in behavior. Objective Vital Signs Date Time Temp Pulse Resp B/P Pulse Ox O2 Delivery O2 Flow Rate FiO2 11/02/16 06:00 78 11/02/16 04:00 97.9 20 152/93 100 11/01/16 00:27 Room Air Intake and Output 11/01/16 11/01/16 11/02/16 08:00 16:00 00:00 Intake Total 310 ml 1220 ml 400 ml Output Total 1200 ml 1000 ml 1000 ml Balance -890 ml 220 ml -600 ml Result Diagram: 11/01/16 0330 11/02/16 0400 Objective Remarks PHYSICAL EXAMINATION GENERAL: Talkative 51-year-old female. VITAL SIGNS: Pulse of 78, blood pressure 152/93, saturation 96%, R 15 HEENT: Atraumatic, normocephalic. NECK: Supple. Airway widely patent. CARDIOVASCULAR EXAM: Regular rate and rhythm. Normal S1-S2. No murmurs, rubs or gallops noted. No JVD. PULMONARY EXAM: Bilateral equal entry. No rales or wheezing. Comfortable pattern. ABDOMEN: Soft, nontender, no distension. Active bowel sounds. EXTREMITIES: No cyanosis, clubbing or edema. Well perfused. NEURO: No focal sensory deficit. O X 3, speech still slightly garbled but better. A/P Assessment and Plan IMPRESSION: 1. Altered mental status, likely secondary to hyponatremia. 2. Severe hyponatremia. 3. Metastatic small cell lung CA to the liver, status post chemotherapy on October 22. 4. 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 5. Normocytic anemia. 6. Thrombocytopenia. 7. Hypertension. 8. COPD. 9. GERD. 10. Port placement. RECOMMENDATIONS: 1. Monitor neuro status and avoid any sedatives. 2. Oxygen p.r.n. to maintain sats above 92%. 3. Bronchodilators. 5. Monitor renal function and electrolyte replacement as needed. 6. d/c NS at 42 ml/hr. Q6h lytes. 7. Check serum and urine osmolality and we will obtain a baseline TSH level. 8. Monitor CBC for signs of infections which include fever and WBC. 10. We will consult Dr. Gama from Oncology Service as the patient is known to him. She is status post chemotherapy on October 22 with cisplatin and CUSTOMER SUCCESS DIRECTOR-16. 11. Sliding scale insulin if needed for glycemic control. 12. GI prophylaxis with Protonix 40 mg daily and DVT prophylaxis with SCDs. 13. Hold chemical DVT px - thrombocytopenia. Overall impression: Chronic moderate hyponatremia from SIADH. Stopped taking salt pills, holding onto free water. Correct slowly to baseline mid 120s. May transfer today. Baudilio Willett MD Nov 02, 2016 07:19
[2016-11-02] MEDS: PANTOPRAZOLE SODIUM 40 MG VIAL IV SCH (08:09)
[2016-11-02] MEDS: TOLVAPTAN 15 MG TAB PO SCH (09:00)
--- NOTE | 2016-11-02 11:15 | HHI.NPPN ---
Subjective Interval History Lying in bed in no distress. She nods head yes/no but unable to speak. Nurse states she called and ordered herself breakfast today. (Karie Valencia ) Objective Data Data 11/01/16 11/02/16 19:00 07:00 Intake Total 1220 ml 640 ml Output Total 1000 ml 1400 ml Balance 220 ml -760 ml Intake Oral 350 ml 640 ml IV Total 870 ml Output Urine Total 1000 ml 1400 ml Stool Total 0 ml 0 ml # Voids 1 # Bowel Movements 1 Vital Signs Date Time Temp Pulse Resp B/P Pulse Ox O2 Delivery O2 Flow Rate FiO2 11/02/16 10:00 81 11/02/16 08:00 97.6 84 11 164/87 100 11/02/16 08:00 78 11/02/16 08:00 84 Room Air 11/02/16 06:00 78 11/02/16 04:00 97.9 87 20 152/93 100 11/02/16 04:00 87 11/02/16 02:00 87 11/02/16 00:00 97.9 107 16 152/90 100 11/02/16 00:00 107 11/01/16 22:00 91 11/01/16 20:00 98.1 94 19 132/81 100 11/01/16 20:00 94 11/01/16 19:53 100 11/01/16 18:00 90 11/01/16 16:00 97.5 93 22 116/73 100 11/01/16 16:00 93 11/01/16 14:00 106 11/01/16 12:00 98 (Karie Valencia) -: 11/01/16 0330 11/02/16 0400 Imaging Last [address] 10/31/160 Signed Impressions: Service Date/Time: Monday, October 31, 2016 18:30 - CONCLUSION: Normal examination for a patient of this age. Clem Ingram MD Chest X-Ray 10/31/160 Signed Impressions: Service Date/Time: Monday, October 31, 2016 17:59 - CONCLUSION: 1. Improvement in left upper lobe airspace disease since chest CT from October 11. Clem Ingram MD (Karie Valencia) Physical Exam General Appearance: Well Developed, Well Nourished, No Acute Distress (Karie Valencia) Eyes Eye Exam: Pupils Equal (Karie Valencia) Throat Throat Exam: Oral Mucosa [place] & Moist (Karie Valencia) Pulmonary Resp Exam: Clear Bilaterally, Breath Sounds Equal (Karie ValenciaP) Cardiology CV Exam: Regular, Normal Sinus Rhythm (Karie Valencia) Gastrointestinal/Abdomen GI Exam: Soft, Non-Tender, Bowel Sounds Present (Karie Valencia) Musculoskeletal MS Exam: Joints Intact, Normal Tone (Karie Valencia) Integumentary Skin Exam: Clear, Warm, Dry, Intact (Karie Valencia) Extremeties Extremities Exam: No Edema, Pedal Pulses Palpable (Karie Valencia) Neurologic Neuro Exam: Alert, Awake, Moving All Extremities (Karie Valencia) Assessment/Plan Discussed Condition With: Patient Electrolyte Assessment: Hyponatremia Problem List: (1) Hyponatremia Plan: due to SIADH, resulting from small cell lung cancer. Work up including osmolality and uric acid in agreement. I have stopped her 2% NS this morning she was started on Tolvaptan today no salt tabs or fluid restriction is required at this time Repeat serum Na, continue to monitor. On the prison, she will need fluid restriction and possibly salt tablets with loop diuretic. (2) SIADH (syndrome of inappropriate ADH production) Plan: due to small cell cancer of the lung. (3) Hypokalemia Plan: replace as needed. (4) SCLC (small cell lung carcinoma) Plan: seen by oncology She has received chemotherapy. Is to have further treatment in the future. (Karie Valencia) Plan patient was seen and examined. Start Tolvaptan. Patient has SIADH. No fluid restriction while on Tolvaptan. (Santiago Elliott MD) Karie Valencia Nov 02, 2016 11:15 Santiago Elliott MD Nov 03, 2016 14:13
[2016-11-02] MEDS ORDERED: SODIUM CHLOR 0.9% 1000 ML INJ 1,000 ML IV SCH (12:00)
--- NOTE | 2016-11-02 16:58 | PD.ONC.PN ---
Subjective Subjective Remarks Afebrile overnight. Pt is resting in bed in no acute distress. She is nodding her head yes and no to answer questions. She nods her head yes when asked about sore throat and indicates that is the reason she does not want to talk. She has no other complaints. Objective Data Date Time Temp Pulse Resp B/P Pulse Ox O2 Delivery O2 Flow Rate FiO2 11/02/16 14:00 98 11/02/16 12:00 98.6 82 13 118/72 11/02/16 12:00 82 11/02/16 10:00 81 11/02/16 08:00 97.6 84 11 164/87 100 11/02/16 08:00 78 11/02/16 08:00 84 Room Air 11/02/16 06:00 78 11/02/16 04:00 97.9 87 20 152/93 100 11/02/16 04:00 87 11/02/16 02:00 87 11/02/16 00:00 97.9 107 16 152/90 100 11/02/16 00:00 107 11/01/16 22:00 91 11/01/16 20:00 98.1 94 19 132/81 100 11/01/16 20:00 94 11/01/16 19:53 100 11/01/16 18:00 90 11/02/16 11/02/16 11/02/16 07:00 15:00 23:00 Intake Total 240 ml 416 ml Output Total 400 ml 1100 ml Balance -160 ml -684 ml Result Diagram: 11/01/16 0330 11/02/16 1030 Laboratory Results Laboratory Tests Test 11/01/16 11/02/16 11/02/16 22:20 04:00 10:30 Sodium Level 118 MEQ/L 115 MEQ/L 114 MEQ/L Potassium Level 4.1 MEQ/L Administered Medications Medications (Trade) Dose Ordered Sig/Ermias Route PRN Reason Start Time Stop Time Status Last Admin Dose Admin Pantoprazole Sodium (Protonix Inj) 40 mg DAILY IV 11/01/16 09:00 11/02/16 08:09 Chlorhexidine Gluconate (Chlorhexidine 2% Cloth) 3 pack Taper DAILY@04 TOP 11/01/16 04:00 10/28/17 03:59 11/02/16 05:27 Acetaminophen 650 mg 650 mg Q4H PRN PO HEADACHE 11/01/16 04:00 11/01/16 15:18 Potassium Chloride 100 ml @ 50 mls/hr Q2H PRN IV For Potassium 2.8 - 3.2 mEq/L 11/01/16 05:15 11/01/16 08:20 Sodium Phosphate 30 mmol/Sodium Chloride 250 ml @ 42 mls/hr UNSCH PRN IV For Phosphorus < 2.5 mg/dL 11/01/16 05:15 11/01/16 06:25 Magnesium Sulfate/ Sodium Chloride (Magnesium Sulfate Inj/NS Inj) 100 ml @ 50 mls/hr UNSCH PRN IV For Magnesium 0.9 - 1.1 mg/dL 11/01/16 05:15 11/01/16 06:26 Budesonide/ Formoterol Fumarate (Symbicort 160-4.5 Inh) 1 puff Q12HR INH 11/01/16 09:00 11/01/16 22:20 Tolvaptan 15 mg 15 mg DAILY PO 11/02/16 09:00 11/02/16 09:00 Sodium Chloride (NS 1000 ml Inj) 1,000 ml @ 50 mls/hr Q20H IV 11/02/16 12:00 11/02/16 12:00 Objective Remarks GENERAL: Middle-aged female sitting up in bed in no distress. SKIN: Warm and dry. HEAD: Normocephalic. EYES: No injection or drainage. NECK: Supple, trachea midline. CARDIOVASCULAR: +S1/S2. No murmur appreciated. RESPIRATORY: Lungs clear anteriorly. Breathing unlabored. GASTROINTESTINAL: Abdomen soft, non-tender, nondistended. EXTREMITIES: No cyanosis, or edema. NEUROLOGICAL: Awake and alert. Nodding her head yes and no appropriately to questions. Assessment/Plan Problem List: (1) SCLC (small cell lung carcinoma) Status: Acute Plan: -- Extensive stage -- s/p 1 dose Cisplatin and Etoposide -- Has now developed SIADH. Hx/Workup: Pt recently diagnosed with extensive stage small cell lung cancer. She has mets to the liver. She received one dose of chemotherapy with Cisplatin and Etoposide. She was brought to the ER after she became confused and had difficulty speaking. (2) Hyponatremia Status: Acute Plan: -- Pt with difficulty speaking; CT brain negative. -- On Samsca 15mg po daily -- Nephrology following -- Will consult speech therapy for difficulty speaking. Assessment 51 y/o female presents to the ER with difficulty speaking and dizziness. Plan 1. Continue Samsca 2. Daily labs to monitor electrolytes 3. Consult speech therapy for difficulty speaking 4. Supportive care. Attending Statement The exam, history, and the medical decision-making described in the above note were completed with the assistance of the mid-level provider. I reviewed and agree with the findings presented. I attest that I had a [id number] encounter with the patient on the same day, and personally performed and documented my assessment and findings in the medical record. having speech issues and sometimes incoherent speech. Hyponatremia may be contributing. Given history of small cell carcinoma which has a propensity to metastasize to the Brain, we will get an MRI with contrast. Brain CT scan did not show any intracranial abnormality. It was w/o contrast and not very sensitive. Discussed with Patient. Saba Banegas Nov 02, 2016 16:58 Aakash Gama MD Nov 02, 2016 23:46
[2016-11-02] MEDS: SODIUM CHLOR 0.45% 1000 ML INJ 1,000 ML IV SCH (21:00)
[2016-11-02] MEDS: BUDESONIDE-FORMOTEROL 160/4.5 MCG INHALER INH SCH (21:00)
[2016-11-03] VITALS (13 sets, daily range): BP systolic 99–111; BP diastolic 63–81; PULSE 98–118; RESP 14–20; TEMP 97.7–98.2; O2SAT 98–100
[2016-11-03 01:20] LABS: BETA HCG QUANT 2 MIU/ML (0-5)
[2016-11-03 01:23] LABS: SODIUM (NA) 129 MEQ/L (136-145)
[2016-11-03] MEDS: CHLORHEXIDINE GLUCONATE 2 % 1 PACK (2 CLOTHS) TOP SCH (04:00)
[2016-11-03 07:53] LABS: AUTOMATED NEUTROPHIL # 1.2 TH/MM3 (1.8-7.7); BASOPHIL # 0.1 TH/MM3 (0-0.2); BASOPHIL % 2.5 % (0.0-2.0); EOSINOPHIL % 0.1 % (0.0-4.0); HEMATOCRIT 29.1 % (35.0-46.0); HEMO FLAGS DIFF FINAL; LYMPH % 46.6 % (9.0-44.0); LYMPHOCYTE # 1.5 TH/MM3 (1.0-4.8); MEAN CELL VOLUME 84.2 FL (80.0-100.0); MEAN CORPUSCULAR HEMOGLOBIN 29.3 PG (27.0-34.0); MEAN CORPUSCULAR HGB CONC 34.8 % (32.0-36.0); NEUT % 37.8 % (16.0-70.0); PLATELET COUNT 104 TH/MM3 (150-450); RED BLOOD COUNT 3.45 MIL/MM3 (4.00-5.30); RED CELL DISTRIBUTION WIDTH 14.3 % (11.6-17.2); WHITE BLOOD COUNT 3.3 TH/MM3 (4.0-11.0)
[2016-11-03] MEDS: BUDESONIDE-FORMOTEROL 160/4.5 MCG INHALER INH SCH ×3 (09:00→21:00)
[2016-11-03] MEDS: TOLVAPTAN 15 MG TAB PO SCH (09:00)
[2016-11-03] MEDS: PANTOPRAZOLE SODIUM 40 MG VIAL IV SCH (10:16)
--- NOTE | 2016-11-03 12:05 | PD.ONC.PN ---
Subjective Subjective Remarks awake and alert. family says she has occasional incoherent speech throat stallings no fevers/cough/congestion no nuase/vomiting or headaches d/w children's author present during rounds d/w in detail with patient's sister Objective Data Date Time Temp Pulse Resp B/P Pulse Ox O2 Delivery O2 Flow Rate FiO2 11/03/16 11:00 98.1 99 14 99/63 100 11/03/16 08:00 99 11/03/16 07:00 Room Air 11/03/16 06:00 103 11/03/16 04:00 97.7 107 20 108/81 100 11/03/16 04:00 107 11/03/16 02:00 105 11/03/16 00:00 100 11/03/16 00:00 98.1 100 20 111/76 100 11/02/16 22:00 108 11/02/16 20:00 97.6 108 20 92/63 100 11/02/16 20:00 108 11/02/16 19:00 100 11/02/16 18:00 102 11/02/16 16:00 97.2 109 25 123/78 11/02/16 16:00 109 11/02/16 14:00 98 11/03/16 11/03/16 11/03/16 07:00 15:00 23:00 Intake Total 634 ml Output Total 1050 ml Balance -416 ml Result Diagram: 11/03/16 0740 11/03/16 0600 Laboratory Results Laboratory Tests Test 11/02/16 11/03/16 11/03/16 11/03/16 18:15 00:30 06:00 07:40 Sodium Level 124 MEQ/L 129 MEQ/L 129 MEQ/L Human Chorionic Gonadotropin, 2 MIU/ML Quant White Blood Count 3.3 TH/MM3 Red Blood Count 3.45 MIL/MM3 Hemoglobin 10.1 GM/DL Hematocrit 29.1 % Mean Corpuscular Volume 84.2 FL Mean Corpuscular Hemoglobin 29.3 PG Mean Corpuscular Hemoglobin 34.8 % Concent Red Cell Distribution Width 14.3 % Platelet Count 104 TH/MM3 Mean Platelet Volume 9.5 FL Neutrophils (%) (Auto) 37.8 % Lymphocytes (%) (Auto) 46.6 % Monocytes (%) (Auto) 13.0 % Eosinophils (%) (Auto) 0.1 % Basophils (%) (Auto) 2.5 % Neutrophils # (Auto) 1.2 TH/MM3 Lymphocytes # (Auto) 1.5 TH/MM3 Monocytes # (Auto) 0.4 TH/MM3 Eosinophils # (Auto) 0.0 TH/MM3 Basophils # (Auto) 0.1 TH/MM3 CBC Comment DIFF FINAL Differential Comment Administered Medications Medications (Trade) Dose Ordered Sig/Ermias Route PRN Reason Start Time Stop Time Status Last Admin Dose Admin Pantoprazole Sodium (Protonix Inj) 40 mg DAILY IV 11/01/16 09:00 11/03/16 10:16 Chlorhexidine Gluconate (Chlorhexidine 2% Cloth) 3 pack Taper DAILY@04 TOP 11/01/16 04:00 10/28/17 03:59 11/02/16 05:27 Acetaminophen 650 mg 650 mg Q4H PRN PO HEADACHE 11/01/16 04:00 11/01/16 15:18 Potassium Chloride 100 ml @ 50 mls/hr Q2H PRN IV For Potassium 2.8 - 3.2 mEq/L 11/01/16 05:15 11/01/16 08:20 Sodium Phosphate 30 mmol/Sodium Chloride 250 ml @ 42 mls/hr UNSCH PRN IV For Phosphorus < 2.5 mg/dL 11/01/16 05:15 11/01/16 06:25 Magnesium Sulfate/ Sodium Chloride (Magnesium Sulfate Inj/NS Inj) 100 ml @ 50 mls/hr UNSCH PRN IV For Magnesium 0.9 - 1.1 mg/dL 11/01/16 05:15 11/01/16 06:26 Budesonide/ Formoterol Fumarate (Symbicort 160-4.5 Inh) 1 puff Q12HR INH 11/01/16 09:00 11/02/16 21:00 Tolvaptan 15 mg 15 mg DAILY PO 11/02/16 09:00 11/02/16 09:00 Sodium Chloride (1/2 NS 1000 ml Inj) 1,000 ml @ 50 mls/hr Q20H IV 11/02/16 21:45 11/02/16 21:00 Objective Remarks GENERAL: nad SKIN: Warm and dry. NECK: Supple, trachea midline. No JVD or lymphadenopathy. LYMPHATIC: No adenopathy. CARDIOVASCULAR: Regular rate and rhythm without murmurs. RESPIRATORY: Breath sounds equal bilaterally. No accessory muscle use. GASTROINTESTINAL: Abdomen soft, non-tender, nondistended. EXTREMITIES: No cyanosis, or edema. Assessment/Plan Problem List: (1) SCLC (small cell lung carcinoma) Status: Acute Plan: -- Extensive stage -- s/p 1 dose Cisplatin and Etoposide -- Has now developed SIADH. Hx/Workup: Pt recently diagnosed with extensive stage small cell lung cancer. She has mets to the liver. She received one dose of chemotherapy with Cisplatin and Etoposide. She was brought to the ER after she became confused and had difficulty speaking. (2) Hyponatremia Status: Acute Plan: -- Pt with difficulty speaking; CT brain negative. -- On Samsca 15mg po daily -- Nephrology following -- Will consult speech therapy for difficulty speaking. Assessment 51 y/o female presents to the ER with difficulty speaking and dizziness. Plan 1. SIADH--sodium improving, received tolvaptan 2. Confusion/speech problems: obtain MRI to r/o brain mets. Ativan 0.5mg IV prior to MRI for anxiety. 3. Odynophagia/?esophagitis/Voice changes: GI consult for EGD. start Diflucan 4. 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 Diarrhea: stop antibiotics. if continues will check c.diff tomorrow. Discussed with family, patient plans for future treatment Time spent 30 minutes Aakash Gama MD Nov 03, 2016 12:05
--- NOTE | 2016-11-03 13:37 | HHI.NPPN ---
Subjective Interval History She is now able to speak, reporting sore throat. Na 129. (Karie Valencia) Review of Systems Ears, Nose, & Throat Ears, Nose & Throat: Sore Throat (Karie Valencia) Objective Data Data 11/02/16 11/03/16 19:00 07:00 Intake Total 416 ml 1741 ml Output Total 1100 ml 3350 ml Balance -684 ml -1609 ml Intake Oral 240 ml 900 ml IV Total 176 ml 841 ml Output Urine Total 1100 ml 3350 ml # Voids 1 # Bowel Movements 0 0 Vital Signs Date Time Temp Pulse Resp B/P Pulse Ox O2 Delivery O2 Flow Rate FiO2 11/03/16 12:00 98.0 102 20 106/80 99 11/03/16 12:00 102 11/03/16 11:00 98.1 99 14 99/63 100 11/03/16 10:00 114 11/03/16 08:00 99 11/03/16 07:00 Room Air 11/03/16 06:00 103 11/03/16 04:00 97.7 107 20 108/81 100 11/03/16 04:00 107 11/03/16 02:00 105 11/03/16 00:00 100 11/03/16 00:00 98.1 100 20 111/76 100 11/02/16 22:00 108 11/02/16 20:00 97.6 108 20 92/63 100 11/02/16 20:00 108 11/02/16 19:00 100 11/02/16 18:00 102 11/02/16 16:00 97.2 109 25 123/78 11/02/16 16:00 109 11/02/16 14:00 98 (Karie Valencia) -: 11/03/16 0740 11/03/16 0600 Physical Exam General Appearance: Well Developed, Well Nourished, No Acute Distress, Comfortable ( Karie Valencia) Eyes Eye Exam: Pupils Equal (Karie Valencia) Throat Throat Exam: Oral Mucosa [place] & Moist (Karie Valencia) Neck Neck Exam: Neck Supple (Karie Valencia) Pulmonary Resp Exam: Clear Bilaterally, Breath Sounds Equal (Karie Valencia) Cardiology CV Exam: Regular, Normal Sinus Rhythm, Good Perfusion (Karie Valencia) Gastrointestinal/Abdomen GI Exam: Soft, Non-Tender, Bowel Sounds Present (Karie Valencia) Musculoskeletal MS Exam: Joints Intact, Normal Tone, Good Strength (Karie Valencia) Integumentary Skin Exam: Clear, Warm, Dry, Intact (Karie Valencia) Extremeties Extremities Exam: No Edema, Pedal Pulses Palpable (Karie Valencia) Neurologic Neuro Exam: Alert, Awake, Oriented, Speech Clear, Moving All Extremities ( Karie Valencia) Assessment/Plan Discussed Condition With: Patient Electrolyte Assessment: Hyponatremia Problem List: (1) Hyponatremia Plan: due to SIADH, resulting from small cell lung cancer. Work up confirms she was started on Tolvaptan 11/02, due to current Na level we will hold today's dose and reevaluate tomorrow to prevent rapid rise in serum Na, she is on 1/2 NS with liberal water intake no salt tabs or fluid restriction is required at this time Repeat serum Na, continue to monitor. On the moth exterminator, she will need fluid restriction and possibly salt tablets with loop diuretic. She reports she ran out of Na tabs for two days leading to this hospitalization (2) SIADH (syndrome of inappropriate ADH production) Plan: due to small cell cancer of the lung. (3) Hypokalemia Plan: replace as needed. (4) SCLC (small cell lung carcinoma) Plan: seen by oncology She has received chemotherapy. Is to have further treatment in the future. (Karie Valencia) Plan patient was seen and examined. Agree with above assessment and plan. (Santiago Elliott MD) Karie Valencia Nov 03, 2016 13:37 Santiago Elliott MD Nov 03, 2016 15:03
[2016-11-03] MEDS ORDERED: LORazepam 2 MG/ML VIAL IV PUSH SCH (14:15)
[2016-11-03] MEDS ORDERED: DEXAMETHASONE SOD PHOS 20 MG/5 ML VIAL IV SCH (14:15)
[2016-11-03] MEDS ORDERED: GADODIAMIDE PF 287 MG/ML 10 ML VIAL (for RAD MRI) IV ONE (15:44)
--- NOTE | 2016-11-03 16:15 | RADRPT ---
EXAM DATE/TIME: 11/03/2016 15:32 [facility] COMPARISON: MRI BRAIN W & W/O CONTRAST, October 13, 2016, 11:52. INDICATIONS : Metastatic disease. Speech abnormalities and confusion. History of small cell lung cancer. CONTRAST: 9 cc Omniscan (gadodiamide) IV MEDICAL HISTORY : Carcinoma, lung. Hypertension. Small cell lung cancer. SURGICAL HISTORY : Hysterectomy. Port placement. Breast implants. ENCOUNTER: Subsequent ACUITY: 2 day PAIN SCORE: 0/10 LOCATION: head. TECHNIQUE: Multiplanar, multisequence MRI of the brain was performed both prior to and following the administrat ion of paramagnetic contrast. FINDINGS: CEREBRUM: The ventricles are normal for age. No evidence of midline shift, mass lesion, hemorrhage or acute in farction. No extraaxial fluid collections are seen. The pituitary gland and suprasellar cistern are normal in configuration. WHITE MATTER: The previously noted area of abnormal increased T2 signal identified within the right subcortical whi te matter has resolved. Currently there are no abnormal foci of T2 signal. POSTERIOR FOSSA: The cerebellum and brainstem are intact. The 4th ventricle is midline. The cerebellopontine angle is unremarkable. The cerebellar tonsils are normal in position. DIFFUSION IMAGING: No focal areas of restricted diffusion are seen. No evidence of acute infarction. EXTRACRANIAL: The visualized portions of the orbits and paranasal sinuses are unremarkable. POST-CONTRAST: No abnormal areas of parenchymal or dural enhancement. No evidence of blood-brain barrier breakdown. CONCLUSION: Normal exam. The previously noted area of abnormal signal identified within the subcortical white mat ter of the right frontal lobe has resolved. No abnormal enhancement seen to suggest metastatic diseas e.. Gertrude Forrest MD on November 03, 2016 at 16:03 Board Certified Radiologist. This report was verified electronically.
[2016-11-03] MEDS: SODIUM CHLOR 0.45% 1000 ML INJ 1,000 ML IV SCH (17:52)
--- NOTE | 2016-11-03 19:39 | HHI.PR ---
Objective Objective Results - Vital Signs Date Time Temp Pulse Resp B/P Pulse Ox O2 Delivery O2 Flow Rate FiO2 11/03/16 18:00 102 11/03/16 16:30 98.2 107 18 101/76 100 11/03/16 16:30 107 11/03/16 14:00 98 11/03/16 12:00 98.0 102 20 106/80 99 11/03/16 12:00 102 11/03/16 11:00 98.1 99 14 99/63 100 11/03/16 10:00 114 11/03/16 08:00 99 11/03/16 07:00 Room Air 11/03/16 06:00 103 11/03/16 04:00 97.7 107 20 108/81 100 11/03/16 04:00 107 11/03/16 02:00 105 11/03/16 00:00 100 11/03/16 00:00 98.1 100 20 111/76 100 11/02/16 22:00 108 11/02/16 20:00 97.6 108 20 92/63 100 11/02/16 20:00 108 I/O 11/02/16 11/02/16 11/02/16 11/03/16 11/03/16 11/03/16 07:00 15:00 23:00 07:00 15:00 23:00 Intake Total 240 ml 416 ml 1107 ml 634 ml 602 ml Output Total 400 ml 1100 ml 2300 ml 1050 ml Balance -160 ml -684 ml -1193 ml -416 ml 602 ml Intake Oral 240 ml 240 ml 600 ml 300 ml 240 ml IV Total 176 ml 507 ml 334 ml 362 ml Output Urine Total 400 ml 1100 ml 2300 ml 1050 ml # Voids 1 1 2 # Bowel Movements 1 0 0 0 0 Result Diagram: 11/03/16 0740 11/03/16 0600 Other Results Laboratory Tests Test 11/03/16 11/03/16 11/03/16 00:30 06:00 07:40 Sodium Level 129 129 Human Chorionic Gonadotropin, 2 Quant White Blood Count 3.3 Red Blood Count 3.45 Hemoglobin 10.1 Hematocrit 29.1 Mean Corpuscular Volume 84.2 Mean Corpuscular Hemoglobin 29.3 Mean Corpuscular Hemoglobin 34.8 Concent Red Cell Distribution Width 14.3 Platelet Count 104 Mean Platelet Volume 9.5 Neutrophils (%) (Auto) 37.8 Lymphocytes (%) (Auto) 46.6 Monocytes (%) (Auto) 13.0 Eosinophils (%) (Auto) 0.1 Basophils (%) (Auto) 2.5 Neutrophils # (Auto) 1.2 Lymphocytes # (Auto) 1.5 Monocytes # (Auto) 0.4 Eosinophils # (Auto) 0.0 Basophils # (Auto) 0.1 CBC Comment DIFF FINAL Differential Comment Physical Exam Physical Exam PT is seen & examined chart reviewed d/w Brooke see consult see orders will f/u Allen Lerma MD Nov 03, 2016 19:39
[2016-11-03] MEDS ORDERED: FLUCONAZOLE 200 MG TAB PO ONE (21:55)
[2016-11-04] VITALS (8 sets, daily range): BP systolic 116–149; BP diastolic 76–101; PULSE 87–109; RESP 16–20; TEMP 97.5–98.2; O2SAT 100
[2016-11-04] MEDS: ACETAMINOPHEN 325 MG TAB PO PRN ×2 (00:41→06:53)
[2016-11-04] MEDS: CHLORHEXIDINE GLUCONATE 2 % 1 PACK (2 CLOTHS) TOP SCH (04:00)
[2016-11-04 04:35] LABS: HEMATOCRIT 25.9 % (35.0-46.0); MEAN CELL VOLUME 84.1 FL (80.0-100.0); MEAN CORPUSCULAR HEMOGLOBIN 29.1 PG (27.0-34.0); MEAN CORPUSCULAR HGB CONC 34.6 % (32.0-36.0); PLATELET COUNT 115 TH/MM3 (150-450); RED BLOOD COUNT 3.08 MIL/MM3 (4.00-5.30); RED CELL DISTRIBUTION WIDTH 14.4 % (11.6-17.2); REVIEW FLAG FINAL; WHITE BLOOD COUNT 2.1 TH/MM3 (4.0-11.0)
[2016-11-04 05:00] LABS: BICARBONATE 22.8 MEQ/L (21.0-32.0)
[2016-11-04] MEDS: BUDESONIDE-FORMOTEROL 160/4.5 MCG INHALER INH SCH ×2 (09:00→21:00)
--- NOTE | 2016-11-04 09:05 | MB ---
cc: ALLEN LERMA MD DATE OF ADMISSION 10/31/2016 DATE OF CONSULTATION 11/03/2016 REASON FOR CONSULTATION Medical management assistance. DATE OF 1965 HISTORY OF PRESENT ILLNESS This is a pleasant 51-year-old white female who was recently diagnosed with metastatic small cell lung cancer in October. She has already undergone chemotherapy starting October [address]-guided biopsy on a liver mass October 14. The patient has had four admissions in the past two months, struggling with hyponatremia/SIADH. She has been seen per Oncology and Nephrology and has continued to receive workups and treatment regimens to stabilize her sodium. states that the sodium will drop as much as 10 points in 24 hours despite aggressive treatment regimen. The patient has the tendency to become confused, have difficulty with word-finding. This current admission she states that she lost at least two days of time due to her confusion. She has also been known to have chronic hyponatremia. The patient denies any chest pain. She is positive for nausea but not vomiting, a decreased appetite. Her states that she eats approximately 200-300 calories per day and cannot stomach anything else. She is able to take water and p.o. liquids but she is limiting that currently due to the hyponatremia events. She did present this admission with some hypertension, dizziness, altered mental status and confusion but at this time has started to clear and is a fairly good historian. She does tend to get off on prior history information that is not related to this illness but is easy to reorient back to the current and present time. She has had an approximately 40-pound weight loss in the past four months. In the ER the patient receive normal saline boluses and she has just returned to her room from MRI. PAST MEDICAL HISTORY 1. Recent diagnosis of metastatic small cell lung cancer with mets to the liver. 2. Normocytic anemia. 3. Hypertension. 4. SIADH. 5. COPD/asthma as a child. 6. GERD. 7. Weight loss of 40 pounds in the past four months. PAST SURGICAL HISTORY 1. Tubal ligation. 2. Partial hysterectomy. 3. Port insertion. 4. Endoscopy. 5. Colonoscopy. 6. MRI procedure today. ALLERGIES CODEINE. LIPITOR. ESTROVEN. MEDICATIONS 1. Symbicort. 2. Ambien. 3. Sodium tabs. 4. Norvasc. 5. Lisinopril. 6. Loratadine. SOCIAL HISTORY The patient is , currently lives in her home with her . She has been a 1-1/2 pack per day smoker and is still currently smoking. No alcohol. No illicit drugs. FAMILY HISTORY N/A. REVIEW OF SYSTEMS A 12-point review was done. Positive assessments include some pleasant confusion but orients easily, dizziness, decreased appetite, some insomnia. All other systems were unremarkable or negative. PHYSICAL EXAMINATION GENERAL: This is a thin, 51-year-old white female resting in the bed. She is alert and talking with no acute distress at this time. VITAL SIGNS: Temperature is 98.1, pulse 99, respiratory rate 20, blood pressure 106/80 and 99/63. O2 sat 100. HEENT: Atraumatic, normocephalic. PERRLA. Nonicteric sclerae. Oral mucosa is pink and moist. NECK: Supple. No JVD. Trachea is midline. CARDIOVASCULAR: Regular rate and rhythm. Borderline tachycardic. S1, S2, without murmur or gallops appreciated. She has no edema and her pulses are intact, 2+/4+. PULMONARY: Essentially clear anteriorly and posteriorly without any wheezes, rales or rhonchi. She has equal expansion and no struggle at rest. ABDOMEN: Soft, flat, non-tender, non-distended. Positive bowel sounds in all four quadrants. MUSCULOSKELETAL: She moves all extremities with purpose. She can overcome resistance. No clubbing, cyanosis or edema. NEUROLOGIC: She is alert, appropriate 95% of the time. She is able to give her history. No focal sensory deficits. LABORATORY DATA White count is 3.3, RBC count 3.45, hemoglobin 10.1, hematocrit is 29.1, platelet count 104, lymphocyte auto 46.6, monocytes 13. PT/INR was 1 on 10/31/2016. Sodium is 129, has been as low as 114 on 11/02/2016. Nasal MRSA screen negative. Toxicology screen negative for any cannabis, cocaine, benzos, amphetamines, barbiturates or opiates. IMAGING STUDIES MRI performed today - normal exam. Chest x-ray and CT also done on the : Improvement of her left upper lobe airspace disease this admission from October 11. CT of the head - Normal exam for a patient of this age. ASSESSMENT AND PLAN 1. Altered mental status. 2. Severe hyponatremia. 3. Metastatic small cell lung cancer with mets to the liver status post chemotherapy. 4. SIADH probably secondary to the lung cancer. 5. Anemia, probably secondary to chronic disease. 6. Thrombocytopenia. 7. Hypertension. 8. Chronic obstructive pulmonary disease. 9. Gastroesophageal reflux disease. 10. Asthma. We will assist in managing her electrolytes, nutritional support, pain management, monitoring of her vital signs. We will monitor for any fever, any heart rate issues, blood pressure or respirations. Hydration continues with normal saline, regular diet, highly encouraged frequent small amounts of food even if she is not hungry, medical management of her medications, support for this and patient through this difficult time. Currently the patient is full code, full aggressive care, and we will follow. Dictated by: MOUSTAPHA Stone Allen Lerma MD MNA/SSB /5:08 PM /9:04 AM PT is seen & examined chart reviewed d/w Brooke see consult see orders will f/u Allen Lerma MD Nov 03, 2016 19:39 MTDD
--- NOTE | 2016-11-04 10:51 | HHI.PR ---
Subjective History of Present Illness I am ok feels better No N/V drank lot of fluid yesterday as per renal rec appetite is improving no cough or sputum no fever or chills no abd pain offers no other c/o Vitals/Results Intake & Output 11/03/16 11/03/16 11/04/16 15:00 23:00 07:00 Intake Total 602 ml 1384 ml 1060 ml Output Total 800 ml 200 ml Balance 602 ml 584 ml 860 ml Intake Oral 240 ml 1000 ml 750 ml IV Total 362 ml 384 ml 310 ml Output Urine Total 800 ml 200 ml # Voids 2 3 # Bowel Movements 0 0 2 Vital Signs Vital Signs Date Time Temp Pulse Resp B/P Pulse Ox O2 Delivery O2 Flow Rate FiO2 11/04/16 08:00 97.7 87 16 148/101 100 140/94 11/04/16 06:00 88 11/04/16 04:00 89 11/04/16 04:00 97.5 89 20 146/90 100 11/04/16 02:00 87 11/04/16 00:00 97.8 98 16 133/86 100 11/04/16 00:00 98 11/03/16 22:00 102 11/03/16 20:00 97.9 118 20 108/71 98 11/03/16 20:00 118 11/03/16 19:00 98 Room Air 11/03/16 18:00 102 11/03/16 16:30 98.2 107 18 101/76 100 11/03/16 16:30 107 11/03/16 14:00 98 11/03/16 12:00 98.0 102 20 106/80 99 11/03/16 12:00 102 11/03/16 11:00 98.1 99 14 99/63 100 CBC/BMP: 11/04/16 0420 11/04/16 0420 Lab Results Laboratory Tests Test 11/03/16 11/04/16 22:50 04:20 Sodium Level 129 MEQ/L 125 MEQ/L White Blood Count 2.1 TH/MM3 Red Blood Count 3.08 MIL/MM3 Hemoglobin 9.0 GM/DL Hematocrit 25.9 % Mean Corpuscular Volume 84.1 FL Mean Corpuscular Hemoglobin 29.1 PG Mean Corpuscular Hemoglobin 34.6 % Concent Red Cell Distribution Width 14.4 % Platelet Count 115 TH/MM3 Mean Platelet Volume 9.3 FL Potassium Level 4.0 MEQ/L Chloride Level 92 MEQ/L Carbon Dioxide Level 22.8 MEQ/L Anion Gap 10 MEQ/L Blood Urea Nitrogen 2 MG/DL Creatinine 0.49 MG/DL Estimat Glomerular Filtration 133 ML/MIN Rate Random Glucose 125 MG/DL Calcium Level 8.9 MG/DL Physical Exam General General Appearance: No Acute Distress, Comfortable Eyes Eye Exam: Pupils Equal, Sclera White, Extraocular Movement Intact Ears & Nose Ears & Nose Exam: Nasal Mucosa [place] Throat Throat Exam: Oral Mucosa [place] & Moist Neck Neck Exam: Neck Supple, Trachea Midline Pulmonary Resp Exam: Clear Bilaterally, Breath Sounds Equal, No Distress Cardiology CV Exam: Regular, Normal Sinus Rhythm, Good Perfusion Gastrointestinal/Abdomen GI Exam: Soft, Non-Tender, Bowel Sounds Present Integumentary Skin Exam: Warm, Dry Extremeties Extremities Exam: No Edema, Pedal Pulses Palpable Neurologic Neuro Exam: Alert, Awake, Oriented, Speech Clear, Moving All Extremities PUD Prophylasis PUD Prophylaxis: Protonix Assessment/Plan Assessment/Plan ASSESSMENT AND PLAN 1. s/p Altered mental status Metabolic Encephalopathy 2. Severe hyponatremia d/t SIADH . 3. Metastatic small cell lung cancer with mets to the liver s/p chemotherapy. 4. SIADH secondary to the lung cancer. 5. Anemia, probably secondary to chronic disease + Chemo. 6. Thrombocytopenia d/t Chemo 7. Hypertension. 8. Chronic obstructive pulmonary disease. 9. Gastroesophageal reflux disease. 10. Asthma. PLAN fluid restriction 1400cc/day cont Tolvaptan monitor Na level albuterol symbicort PPI monitor CBC stop smoking ambulate am labs for d/c planning Dr Orr will f/u in am Allen Lerma MD Nov 04, 2016 10:51
--- NOTE | 2016-11-04 11:31 | PD.ONC.PN ---
Subjective Subjective Remarks Afebrile overnight. The patient is awake, jovial. She states she feels much better. Sore throat is improved. She has no complaints except that she cannot sleep. Objective Data Date Time Temp Pulse Resp B/P Pulse Ox O2 Delivery O2 Flow Rate FiO2 11/04/16 08:00 97.7 87 16 148/101 100 140/94 11/04/16 06:00 88 11/04/16 04:00 89 11/04/16 04:00 97.5 89 20 146/90 100 11/04/16 02:00 87 11/04/16 00:00 97.8 98 16 133/86 100 11/04/16 00:00 98 11/03/16 22:00 102 11/03/16 20:00 97.9 118 20 108/71 98 11/03/16 20:00 118 11/03/16 19:00 98 Room Air 11/03/16 18:00 102 11/03/16 16:30 98.2 107 18 101/76 100 11/03/16 16:30 107 11/03/16 14:00 98 11/03/16 12:00 98.0 102 20 106/80 99 11/03/16 12:00 102 11/04/16 11/04/16 11/04/16 07:00 15:00 23:00 Intake Total 1060 ml Output Total 200 ml Balance 860 ml Result Diagram: 11/04/16 0420 11/04/16 0420 Laboratory Results Laboratory Tests Test 11/03/16 11/04/16 22:50 04:20 Sodium Level 129 MEQ/L 125 MEQ/L White Blood Count 2.1 TH/MM3 Red Blood Count 3.08 MIL/MM3 Hemoglobin 9.0 GM/DL Hematocrit 25.9 % Mean Corpuscular Volume 84.1 FL Mean Corpuscular Hemoglobin 29.1 PG Mean Corpuscular Hemoglobin 34.6 % Concent Red Cell Distribution Width 14.4 % Platelet Count 115 TH/MM3 Mean Platelet Volume 9.3 FL Potassium Level 4.0 MEQ/L Chloride Level 92 MEQ/L Carbon Dioxide Level 22.8 MEQ/L Anion Gap 10 MEQ/L Blood Urea Nitrogen 2 MG/DL Creatinine 0.49 MG/DL Estimat Glomerular Filtration 133 ML/MIN Rate Random Glucose 125 MG/DL Calcium Level 8.9 MG/DL Imaging Studies Last 48 hours Impressions Brain MRI 11/03/16 0000 Signed Impressions: Service Date/Time: October 15:32 - CONCLUSION: Normal exam. The previously noted area of abnormal signal identified within the subcortical white matter of the right frontal lobe has resolved. No abnormal enhancement seen to suggest metastatic disease.. Gertrude Forrest MD Administered Medications Medications (Trade) Dose Ordered Sig/Ermias Route PRN Reason Start Time Stop Time Status Last Admin Dose Admin Pantoprazole Sodium (Protonix Inj) 40 mg DAILY IV 11/01/16 09:00 11/03/16 10:16 Chlorhexidine Gluconate (Chlorhexidine 2% Cloth) 3 pack Taper DAILY@04 TOP 11/01/16 04:00 10/28/17 03:59 11/02/16 05:27 Acetaminophen (Tylenol) 650 mg Q4H PRN PO HEADACHE 11/01/16 04:00 11/04/16 06:53 Budesonide/ Formoterol Fumarate (Symbicort 160-4.5 Inh) 1 puff Q12HR INH 11/01/16 09:00 11/02/16 21:00 Tolvaptan 15 mg 15 mg DAILY PO 11/02/16 09:00 11/02/16 09:00 Sodium Chloride (1/2 NS 1000 ml Inj) 1,000 ml @ 50 mls/hr Q20H IV 11/02/16 21:45 11/03/16 17:52 Objective Remarks GENERAL: Middle aged female lying in bed in no distress. SKIN: Warm and dry. HEAD: Normocephalic. EYES: No injection or drainage. NECK: Supple, trachea midline. CARDIOVASCULAR: +S1/S2. No murmur appreciated. RESPIRATORY: Lungs clear throughout. Breathing easy and unlabored. GASTROINTESTINAL: Abdomen soft, non-tender, nondistended. EXTREMITIES: No cyanosis, or edema. NEUROLOGICAL: Normal speech. Moving all extremities. No obvious focal deficit. 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 Hx/Workup: Pt recently diagnosed with extensive stage small cell lung cancer. She has mets to the liver. She received one dose of chemotherapy with Cisplatin and Etoposide. She was brought to the ER after she became confused and had difficulty speaking. (2) Hyponatremia Status: Acute Plan: -- Previously had difficulty speaking. -- CT and MRI of brain were both negative for any acute processes. -- On Samsca 15mg po daily -- Nephrology following Assessment 51 y/o female presents to the ER with difficulty speaking and dizziness. Plan 1. SIADH--sodium 125 today. Continue Samsca 15mg po daily. 2. Confusion/speech problems resolved. 3. Await GI consult for esophagitis/ odynophagia 4. 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 Diarrhea; will check stool for C-diff. Attending Statement The exam, history, and the medical decision-making described in the above note were completed with the assistance of the mid-level provider. I reviewed and agree with the findings presented. I attest that I had a [id number] encounter with the patient on the same day, and personally performed and documented my assessment and findings in the medical record. Brain MRI did not show any acute intracranial pathology Discussed with Patient and family the results of MRI More coherent today Sodium levels better Esophageal pain improved continue Diflucan GI consult pending Plans for chemotherapy next week out-patient. Dr. Chavez to see patient on Monday. Saba Banegas Nov 04, 2016 11:30 Aakash Gama MD Nov 04, 2016 23:10
[2016-11-04] MEDS: TOLVAPTAN 15 MG TAB PO SCH (15:05)
[2016-11-04] MEDS: FLUCONAZOLE 100 MG TAB PO SCH (15:07)
[2016-11-04] MEDS: PANTOPRAZOLE SODIUM 40 MG VIAL IV SCH (15:08)
--- NOTE | 2016-11-04 15:56 | HHI.NPPN ---
Subjective Interval History she is comfortable. Voiced no complaints. Wants to go home. Able to communicate. Review of Systems Ears, Nose, & Throat Ears, Nose & Throat: Sore Throat Objective Data Data 11/03/16 11/04/16 19:00 07:00 Intake Total 602 ml 2444 ml Output Total 1000 ml Balance 602 ml 1444 ml Intake Oral 240 ml 1750 ml IV Total 362 ml 694 ml Output Urine Total 1000 ml # Voids 2 3 # Bowel Movements 0 2 Vital Signs Date Time Temp Pulse Resp B/P Pulse Ox O2 Delivery O2 Flow Rate FiO2 11/04/16 12:00 98.0 109 18 116/93 100 11/04/16 08:00 97.7 87 16 148/101 100 140/94 11/04/16 06:00 88 11/04/16 04:00 89 11/04/16 04:00 97.5 89 20 146/90 100 11/04/16 02:00 87 11/04/16 00:00 97.8 98 16 133/86 100 11/04/16 00:00 98 11/03/16 22:00 102 11/03/16 20:00 97.9 118 20 108/71 98 11/03/16 20:00 118 11/03/16 19:00 98 Room Air 11/03/16 18:00 102 11/03/16 16:30 98.2 107 18 101/76 100 11/03/16 16:30 107 -: 11/04/16 0420 11/04/16 0420 Physical Exam General Appearance: Well Developed, Well Nourished, No Acute Distress, Comfortable Eyes Eye Exam: Pupils Equal Throat Throat Exam: Oral Mucosa [place] & Moist Neck Neck Exam: Neck Supple Pulmonary Resp Exam: Clear Bilaterally, Breath Sounds Equal Cardiology CV Exam: Regular, Normal Sinus Rhythm, Good Perfusion Gastrointestinal/Abdomen GI Exam: Soft, Non-Tender, Bowel Sounds Present Musculoskeletal MS Exam: Joints Intact, Normal Tone, Good Strength Integumentary Skin Exam: Clear, Warm, Dry, Intact Extremeties Extremities Exam: No Edema, Pedal Pulses Palpable Neurologic Neuro Exam: Alert, Awake, Oriented, Speech Clear, Moving All Extremities Assessment/Plan Discussed Condition With: Patient Electrolyte Assessment: Hyponatremia Problem List: (1) Hyponatremia Plan: due to SIADH, resulting from small cell lung cancer. Work up confirms this diagnosis. Another dose of Tolvaptan today. No need for fluid restriction while on Tolvaptan. [place] fluid restriction at the time of discharge along with salt tablets and a small dose of loop diuretic: 10 mg PO daily. (2) SIADH (syndrome of inappropriate ADH production) Plan: due to small cell cancer of the lung. (3) Hypokalemia Plan: replace as needed. (4) SCLC (small cell lung carcinoma) Plan: seen by oncology She has received chemotherapy. Is to have further treatment in the future. Plan Possible discharge tomorrow Santiago Elliott MD Nov 04, 2016 15:56
[2016-11-05] VITALS: BP 148/105; PULSE 94; RESP 20; TEMP 98.1; O2SAT 100
[2016-11-05] MEDS: ACETAMINOPHEN 325 MG TAB PO PRN ×5 (01:25→23:25)
[2016-11-05 04:00] VITALS: BP 144/99
[2016-11-05] MEDS: CHLORHEXIDINE GLUCONATE 2 % 1 PACK (2 CLOTHS) TOP SCH ×2 (04:00→19:32)
[2016-11-05 06:29] LABS: BICARBONATE 27.8 MEQ/L (21.0-32.0); POTASSIUM 3.4 MEQ/L (3.5-5.1)
[2016-11-05 06:44] LABS: AUTOMATED NEUTROPHIL # 1.3 TH/MM3 (1.8-7.7); BASOPHIL % 0.4 % (0.0-2.0); EOSINOPHIL % 0.1 % (0.0-4.0); HEMATOCRIT 24.5 % (35.0-46.0); HEMO FLAGS DIFF FINAL; LYMPH % 58.8 % (9.0-44.0); LYMPHOCYTE # 3.5 TH/MM3 (1.0-4.8); MEAN CELL VOLUME 84.7 FL (80.0-100.0); MEAN CORPUSCULAR HEMOGLOBIN 29.6 PG (27.0-34.0); MONO % 18.1 % (0.0-8.0); NEUT % 22.6 % (16.0-70.0); PLATELET COUNT 153 TH/MM3 (150-450); RED BLOOD COUNT 2.89 MIL/MM3 (4.00-5.30); RED CELL DISTRIBUTION WIDTH 14.2 % (11.6-17.2); WHITE BLOOD COUNT 5.9 TH/MM3 (4.0-11.0)
[2016-11-05 08:00] VITALS: BP 137/85; PULSE 80; RESP 20; TEMP 97.5; O2SAT 99
[2016-11-05] MEDS: BUDESONIDE-FORMOTEROL 160/4.5 MCG INHALER INH SCH ×2 (08:10→19:32)
[2016-11-05] MEDS: FLUCONAZOLE 100 MG TAB PO SCH (08:11)
[2016-11-05] MEDS: PANTOPRAZOLE SODIUM 40 MG VIAL IV SCH (08:11)
--- NOTE | 2016-11-05 10:20 | MB ---
cc: EVARISTO SANCHEZ M.D., AWAIS DATE OF CONSULTATION: 11/04/[address] Gama REASON FOR CONSULTATION Metastatic liver disease. Going through the records, apparently the consultation was called for a possible endoscopy for odynophagia and voice change. HISTORY OF PRESENT ILLNESS Ms. Madison Galaviz is a 51-year-old lady who was recently diagnosed with small cell lung cancer status post chemotherapy two weeks ago, with metastasis to the liver. The patient was admitted with severe hyponatremia. She had recurrent episodes of altered mental status secondary to hyponatremia. Currently on supplementation of salt and water restriction.Apparently she had some hoarseness, odynophagia, dysphagia few days ago , resolved for now. PAST MEDICAL HISTORY 1. Small cell lung cancer with metastatic liver disease. 2. COPD. 3. History of tobacco abuse. 4. Reflux. 5. SIADH. PAST SURGICAL HISTORY Liver biopsy. MEDICATIONS 1. Symbicort. 2. Potassium chloride. 3. Ambien. 4. Sodium chloride. 5. Ceftin. 6. Norvasc. 7. Lisinopril. 8. Clonazepam. 9. Gabapentin. 10. Loratadine. FAMILY HISTORY No family history of colon cancer or any other GI pathology. SOCIAL HISTORY Ex-smoker. Denies any drugs or alcohol use. ALLERGIES LIPITOR AND CODEINE. REVIEW OF SYSTEMS She denies any fever or chills. She does have significant weight loss. ENT: No alteration in baseline hearing or visual acuity. PULMONARY: She does have shortness of breath. GASTROINTESTINAL: As above. GENITOURINARY: Denies dysuria or hematuria. HEMATOLOGICAL: Denies any history of anemia or bleeding disorder. SKIN: No alteration in baseline skin lesion. NEUROLOGICAL: No history of TIA or CVA kind of symptoms, but she does have a history of recurrent altered mental status secondary to hyponatremia. The patient complains of headaches followed by episodes of nausea and vomiting, they last for a few hours and then improve after taking Tylenol and then reappear again. PHYSICAL EXAMINATION GENERAL: On current examination, she is sitting comfortable in bed in no acute distress. VITAL SIGNS: Her vitals are stable. Her temperature is 98.2, pulse is 96, respiration is 16, blood pressure 118/76, pulse oximetry 100. HEAD, EYES, EARS, NOSE AND THROAT: LINO. NECK: No JVD. No lymphadenopathy. CHEST: Clear to auscultation and palpation. CARDIOVASCULAR: S1, S2. No murmur. ABDOMEN: Abdomen is soft, nontender. Bowel sounds are present. FILE KEEPER: Awake, alert, oriented x3. No focal signs identified. LABORATORY DATA Her sodium currently is 125, her glucose is 125. Her most recent liver enzymes done 10/24/2016: AST 55, ALT 61, her total bilirubin is 0.5; before that they were normal. IMAGING The patient had a brain MRI which showed no abnormal lesion to suggest metastatic disease. Had a CT abdomen and pelvis done on 10/12/2016 which showed multiple hepatic lesions consistent with metastatic disease. The largest lesion measured 2.2 cm. Her pathology report from the liver biopsy shows small cell carcinoma. The patient had an endoscopy and a colonoscopy back in 2014. Pathology from the antrum showed gastritis and duodenitis. IMPRESSION Ms. Galaviz is a 51-year-old lady with newly diagnosed metastatic lung cancer to the liver, undergoing chemotherapy at this time. Initial consultation was called for metastatic liver disease. Not much to add from GI point of view in terms of treatment. Reviewing the chart, apparently the consultation was requested actually for odynophagia, dysphagia and voice change. At this time, the patient denies any symptoms. She said all her above symptoms improved significantly. RECOMMENDATIONS Continue PPI. If the patient continues to have dysphagia, odynophagia or change in voice, we are going to schedule an upper endoscopy. Supportive care. Poor prognosis. MD SANDIP Harden/KI /7:31 PM /9:40 AM EMELI
--- NOTE | 2016-11-05 10:23 | PD.ONC.PN ---
Subjective Subjective Remarks Afebrile overnight. Patient feeling very well today. She really wants to go home. Objective Data Date Time Temp Pulse Resp B/P Pulse Ox O2 Delivery O2 Flow Rate FiO2 11/05/16 09:11 19 11/05/16 08:07 Room Air 11/05/16 08:00 97.5 80 20 137/85 99 11/05/16 04:00 144/99 11/05/16 00:00 98.1 94 20 148/105 100 11/04/16 21:13 Room Air 11/04/16 20:00 98.1 100 20 149/100 100 11/04/16 16:00 98.2 96 16 118/76 100 11/04/16 12:00 98.0 109 18 116/93 100 11/05/16 11/05/16 11/05/16 07:00 15:00 23:00 Intake Total 120 ml 120 ml Balance 120 ml 120 ml Result Diagram: 11/05/16 0534 11/05/16 0534 Laboratory Results Laboratory Tests Test 11/05/16 05:34 White Blood Count 5.9 TH/MM3 Red Blood Count 2.89 MIL/MM3 Hemoglobin 8.6 GM/DL Hematocrit 24.5 % Mean Corpuscular Volume 84.7 FL Mean Corpuscular Hemoglobin 29.6 PG Mean Corpuscular Hemoglobin 35.0 % Concent Red Cell Distribution Width 14.2 % Platelet Count 153 TH/MM3 Mean Platelet Volume 9.4 FL Neutrophils (%) (Auto) 22.6 % Lymphocytes (%) (Auto) 58.8 % Monocytes (%) (Auto) 18.1 % Eosinophils (%) (Auto) 0.1 % Basophils (%) (Auto) 0.4 % Neutrophils # (Auto) 1.3 TH/MM3 Lymphocytes # (Auto) 3.5 TH/MM3 Monocytes # (Auto) 1.1 TH/MM3 Eosinophils # (Auto) 0.0 TH/MM3 Basophils # (Auto) 0.0 TH/MM3 CBC Comment DIFF FINAL Differential Comment Sodium Level 136 MEQ/L Potassium Level 3.4 MEQ/L Chloride Level 100 MEQ/L Carbon Dioxide Level 27.8 MEQ/L Anion Gap 8 MEQ/L Blood Urea Nitrogen 4 MG/DL Creatinine 0.67 MG/DL Estimat Glomerular Filtration 92 ML/MIN Rate Random Glucose 79 MG/DL Calcium Level 8.6 MG/DL Administered Medications Medications (Trade) Dose Ordered Sig/Ermias Route PRN Reason Start Time Stop Time Status Last Admin Dose Admin Pantoprazole Sodium (Protonix Inj) 40 mg DAILY IV 11/01/16 09:00 11/05/16 08:11 Chlorhexidine Gluconate (Chlorhexidine 2% Cloth) 3 pack Taper DAILY@04 TOP 11/01/16 04:00 10/28/17 03:59 11/02/16 05:27 Acetaminophen (Tylenol) 650 mg Q4H PRN PO HEADACHE 11/01/16 04:00 11/05/16 08:11 Budesonide/ Formoterol Fumarate (Symbicort 160-4.5 Inh) 1 puff Q12HR INH 11/01/16 09:00 11/02/16 21:00 Tolvaptan (Samsca) 15 mg DAILY PO 11/02/16 09:00 11/04/16 15:05 Fluconazole (Diflucan) 100 mg DAILY PO 11/04/16 09:00 11/05/16 08:11 Objective Remarks GENERAL: Middle aged female, sitting up in bed in [facility]. SKIN: Warm and dry. HEAD: Normocephalic. EYES: No injection or drainage. NECK: Supple, trachea midline. CARDIOVASCULAR: Regular rate and rhythm RESPIRATORY: Breath sounds equal bilaterally. No accessory muscle use. GASTROINTESTINAL: Abdomen soft, non-tender, nondistended. EXTREMITIES: No cyanosis NEUROLOGICAL: No obvious focal deficit. Awake, alert, and oriented x3. 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 Hx/Workup: Pt recently diagnosed with extensive stage small cell lung cancer. She has mets to the liver. She received one dose of chemotherapy with Cisplatin and Etoposide. She was brought to the ER after she became confused and had difficulty speaking. (2) Hyponatremia Status: Acute Plan: Na 136 today -- CT and MRI of brain were both negative for any acute processes. -- On Samsca 15mg po daily -- Nephrology following (3) Diarrhea Status: Acute Plan: --c. diff pending. Assessment 51 y/o female w/ SCLC admitted with difficulty speaking and dizziness. Plan 1. SIADH--sodium 136 today. Continue Samsca 15mg po daily. 2. diarrhea: awaiting C. diff testing 3. dysphagia: improved. appreciate GI consult. continue PPI. patient may need EGD at some point in future. Attending Statement The exam, history, and the medical decision-making described in the above note were completed with the assistance of the mid-level provider. I reviewed and agree with the findings presented. I attest that I had a [id number] encounter with the patient on the same day, and personally performed and documented my assessment and findings in the medical record. Patient was seen and examined, labs, vital signs, medications were reviewed. Patient reports feeling better, she feels more alert and oriented today. When I saw her, she was in her bed crying; she tells me she is upset at her sister for giving her a hard time because she continues to smoke. The patient denies acute complaints. She wants know she is ready to go home today. This patient does have a history of metastatic small cell carcinoma of the lung. She has been given a single dose of cisplatin/etoposide the previous few weeks. 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 Dispo: Clear for discharge from oncology standpoint. She is to follow-up with Dr. Gama next week. Johanna Orozco Nov 05, 2016 10:23 Christopher Chavez MD Nov 05, 2016 13:36
--- NOTE | 2016-11-05 10:56 | HHI.NPPN ---
Subjective Interval History patient's serum Na has improved. She wants to go home. Review of Systems Ears, Nose, & Throat Ears, Nose & Throat: Sore Throat Objective Data Data 11/04/16 11/05/16 19:00 07:00 Intake Total 600 ml 840 ml Output Total 850 ml Balance -250 ml 840 ml Intake Oral 600 ml 840 ml IV Total 0 ml Output Urine Total 850 ml # Voids 8 # Bowel Movements 3 3 Vital Signs Date Time Temp Pulse Resp B/P Pulse Ox O2 Delivery O2 Flow Rate FiO2 11/05/16 09:11 19 11/05/16 08:07 Room Air 11/05/16 08:00 97.5 80 20 137/85 99 11/05/16 04:00 144/99 11/05/16 00:00 98.1 94 20 148/105 100 11/04/16 21:13 Room Air 11/04/16 20:00 98.1 100 20 149/100 100 11/04/16 16:00 98.2 96 16 118/76 100 11/04/16 12:00 98.0 109 18 116/93 100 -: 11/05/16 0534 11/05/16 0534 Physical Exam General Appearance: No Acute Distress, Comfortable Eyes Eye Exam: Pupils Equal, Sclera White, Extraocular Movement Intact Ears & Nose Ears & Nose Exam: Nasal Mucosa [place] Throat Throat Exam: Oral Mucosa [place] & Moist Neck Neck Exam: Neck Supple, Trachea Midline Pulmonary Resp Exam: Clear Bilaterally, Breath Sounds Equal, No Distress Cardiology CV Exam: Regular, Normal Sinus Rhythm, Good Perfusion Gastrointestinal/Abdomen GI Exam: Soft, Non-Tender, Bowel Sounds Present Integumentary Skin Exam: Warm, Dry Extremeties Extremities Exam: No Edema, Pedal Pulses Palpable Neurologic Neuro Exam: Alert, Awake, Oriented, Speech Clear, Moving All Extremities PUD Prophylasis PUD Prophylaxis: Protonix Assessment/Plan Discussed Condition With: Patient Electrolyte Assessment: Hyponatremia Problem List: (1) Hyponatremia Plan: due to SIADH, resulting from small cell lung cancer. Work up confirms this diagnosis. Serum Na has improved with Tolvaptan. We can discontinue Tolvaptan at this time. Start Sodium chloride tablet, loop diuretic and potassium supplementation. Fluid restriction to 1200 ml/day. (2) SIADH (syndrome of inappropriate ADH production) Plan: due to small cell cancer of the lung. (3) Hypokalemia Plan: replace as needed. (4) SCLC (small cell lung carcinoma) Plan: seen by oncology She has received chemotherapy. Is to have further treatment in the future. Plan Patient can be discharged from renal standpoint. I will sign off at this time. Santiago Elliott MD Nov 05, 2016 10:56
[2016-11-05 11:29] VITALS: BP_SYST 94; PULSE 86; RESP 20; TEMP 97.6; O2SAT 96
--- NOTE | 2016-11-05 15:46 | HHI.PR ---
Subjective Interval History Alert, oriented, confused, cried during the interview , thinks that she is dying , Review of Systems Constitutional Constitutional Remarks General weakness, depression, complaining of her hair hurting, 10 systems reviewed and otherwise negative but not reliable Vitals/Results Intake & Output 11/04/16 11/04/16 11/05/16 15:00 23:00 07:00 Intake Total 600 ml 720 ml 120 ml Output Total 850 ml Balance -250 ml 720 ml 120 ml Intake Oral 600 ml 720 ml 120 ml IV Total 0 ml 0 ml Output Urine Total 850 ml # Voids 3 5 # Bowel Movements 3 3 Vital Signs Vital Signs Date Time Temp Pulse Resp B/P Pulse Ox O2 Delivery O2 Flow Rate FiO2 11/05/16 15:02 18 11/05/16 11:29 97.6 86 20 94/ 96 11/05/16 08:07 Room Air 11/05/16 08:00 97.5 80 20 137/85 99 11/05/16 04:00 144/99 11/05/16 00:00 98.1 94 20 148/105 100 11/04/16 21:13 Room Air 11/04/16 20:00 98.1 100 20 149/100 100 11/04/16 16:00 98.2 96 16 118/76 100 CBC/BMP: 11/05/16 0534 11/05/16 0534 Lab Results Laboratory Tests Test 11/05/16 05:34 White Blood Count 5.9 TH/MM3 Red Blood Count 2.89 MIL/MM3 Hemoglobin 8.6 GM/DL Hematocrit 24.5 % Mean Corpuscular Volume 84.7 FL Mean Corpuscular Hemoglobin 29.6 PG Mean Corpuscular Hemoglobin 35.0 % Concent Red Cell Distribution Width 14.2 % Platelet Count 153 TH/MM3 Mean Platelet Volume 9.4 FL Neutrophils (%) (Auto) 22.6 % Lymphocytes (%) (Auto) 58.8 % Monocytes (%) (Auto) 18.1 % Eosinophils (%) (Auto) 0.1 % Basophils (%) (Auto) 0.4 % Neutrophils # (Auto) 1.3 TH/MM3 Lymphocytes # (Auto) 3.5 TH/MM3 Monocytes # (Auto) 1.1 TH/MM3 Eosinophils # (Auto) 0.0 TH/MM3 Basophils # (Auto) 0.0 TH/MM3 CBC Comment DIFF FINAL Differential Comment Sodium Level 136 MEQ/L Potassium Level 3.4 MEQ/L Chloride Level 100 MEQ/L Carbon Dioxide Level 27.8 MEQ/L Anion Gap 8 MEQ/L Blood Urea Nitrogen 4 MG/DL Creatinine 0.67 MG/DL Estimat Glomerular Filtration 92 ML/MIN Rate Random Glucose 79 MG/DL Calcium Level 8.6 MG/DL Physical Exam General General Appearance: No Acute Distress, Comfortable, Malnourished Eyes Eye Exam: Pupils Equal, Sclera White, Extraocular Movement Intact Ears & Nose Ears & Nose Exam: Nasal Mucosa [place] Throat Throat Exam: Oral Mucosa [place] & Moist Neck Neck Exam: Neck Supple, Trachea Midline Pulmonary Resp Exam: Breath Sounds Equal, No Distress, Crackles, Rhonchi Cardiology CV Exam: Regular, Normal Sinus Rhythm, Good Perfusion Chest/Breast Chest/Breast Remarks Right upper chest [id number] in place Gastrointestinal/Abdomen GI Exam: Soft, Non-Tender, Bowel Sounds Present Musculoskeletal MS Exam: Normal Tone Integumentary Skin Exam: Warm, Dry Extremeties Extremities Exam: No Edema, Pedal Pulses Palpable Neurologic Neuro Exam: Alert, Awake, Oriented, Speech Clear, Moving All Extremities Psychiatric Psych Exam: Appropriate Responses PUD Prophylasis PUD Prophylaxis: Protonix Assessment/Plan Assessment/Plan ASSESSMENT AND PLAN . s/p Altered mental status Metabolic Encephalopathy . Severe hyponatremia secondary to SIADH . . Metastatic small cell lung cancer with mets to the liver s/p chemotherapy. . SIADH secondary to the lung cancer. . Anemia, probably secondary to chronic disease + Chemo. . Thrombocytopenia secondary to Chemo . Hypertension. . Chronic obstructive pulmonary disease. . Gastroesophageal reflux disease. . Asthma. PLAN fluid restriction 1400cc/day Tolvaptan discontinued, no longer needed monitor Na level albuterol symbicort PPI monitor CBC stop smoking ambulate am labs ss for d/c planning Keara Orr MD Nov 05, 2016 15:46
[2016-11-05 16:00] VITALS: BP 140/80; PULSE 81; RESP 19; TEMP 97.5; O2SAT 96
[2016-11-05] MEDS: HEPARIN SODIUM - SQ 10,000 UNITS/ML VIAL SQ SCH (19:33)
[2016-11-05 20:00] VITALS: BP 143/82; PULSE 105; RESP 18; TEMP 97.5; O2SAT 100
[2016-11-06] VITALS: BP_SYST 166; BP_SYST 167; BP_DIAS 85; BP_DIAS 95; PULSE 89; PULSE 95; RESP 18; TEMP 97.6; TEMP 97.9; O2SAT 100; O2SAT 99
[2016-11-06 04:00] VITALS: BP 162/94
[2016-11-06] MEDS: ACETAMINOPHEN 325 MG TAB PO PRN ×3 (05:03→19:23)
[2016-11-06] MEDS: FUROSEMIDE 20 MG TAB PO SCH (07:42)
[2016-11-06] MEDS: SODIUM CHLORIDE 1 GRAM TAB PO SCH (07:42)
[2016-11-06] MEDS: BUDESONIDE-FORMOTEROL 160/4.5 MCG INHALER INH SCH ×2 (07:43→19:22)
[2016-11-06] MEDS: PANTOPRAZOLE SODIUM 40 MG VIAL IV SCH (07:43)
[2016-11-06] MEDS: HEPARIN SODIUM - SQ 10,000 UNITS/ML VIAL SQ SCH ×2 (07:43→19:22)
[2016-11-06] MEDS: FLUCONAZOLE 100 MG TAB PO SCH (07:43)
[2016-11-06 08:02] VITALS: BP 151/91; PULSE 81; RESP 20; TEMP 97.9; O2SAT 100
[2016-11-06 08:30] LABS: MEAN CORPUSCULAR HEMOGLOBIN 29.9 PG (27.0-34.0); MEAN CORPUSCULAR HGB CONC 35.2 % (32.0-36.0); PLATELET COUNT 191 TH/MM3 (150-450); RED BLOOD COUNT 2.82 MIL/MM3 (4.00-5.30); RED CELL DISTRIBUTION WIDTH 14.5 % (11.6-17.2); WHITE BLOOD COUNT 6.4 TH/MM3 (4.0-11.0)
[2016-11-06 08:31] LABS: HEMO FLAGS AUTO DIFF
[2016-11-06 08:48] LABS: BICARBONATE 25.4 MEQ/L (21.0-32.0); POTASSIUM 3.2 MEQ/L (3.5-5.1)
[2016-11-06] MEDS ORDERED: POTASSIUM CHLORIDE 10 MEQ CONTROLLED RELEASE TAB PO SCH (09:00)
[2016-11-06 10:21] LABS: BANDS 1 % (0-6); EOSINOPHILS 1 % (0-4); NEUTROPHIL # MANUAL DIFF 0.6 TH/MM3 (1.8-7.7); PLATELET ESTIMATE SMEAR NORMAL (NORMAL); PLATELET MORPHOLOGY NORMAL (NORMAL); POLYS (SEG NEUTROPHILS) 8 % (16-70); SCAN/DIFF FINAL DIFF MANUAL; WBC DIFF SAMPLE 100
[2016-11-06 10:23] LABS: ACANTHOCYTES 1+ (NORMAL)
[2016-11-06 11:45] VITALS: BP 132/84; PULSE 105; RESP 20; TEMP 98.5; O2SAT 100
--- NOTE | 2016-11-06 12:26 | HHI.GIFU ---
GI Follow-up Note Consult Follow-up Subjective: Patient laying in bed comfortably, denies nausea, vomiting, abdominal pain, dysphagia, odynophagia. She is awake and oriented times 3 at this point .Discussed about possible egd- states she is fine , not interested for now, if recurrent symptoms will let us know Objective: PHYSICAL EXAMINATION: Vitals signs stable No fever Vital Signs Date Time Temp Pulse Resp B/P Pulse Ox O2 Delivery O2 Flow Rate FiO2 11/06/16 11:45 98.5 105 20 132/84 100 11/06/16 08:02 97.9 81 20 151/91 100 11/06/16 07:41 Room Air HEENT: Pupils round and reactive to light; normocephalic; atraumatic; no jaundice. Throat is clear. NECK: Neck is supple, no JVD, no lymphadenopathy. CHEST: Chest is clear to auscultation and percussion. CARDIAC: Regular rate and rhythm with no murmur gallop or rubs. ABDOMEN: Soft, nondistended, nontender; no hepatosplenomegaly; bowel sounds are present in all four quadrants. EXTREMITIES: No clubbing, cyanosis, or edema. SKIN: Normal; no rash; no jaundice. 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 Available Data (labs, X- Rays, Procedues) : Laboratory Tests Test 11/05/16 11/06/16 05:34 08:00 White Blood Count 5.9 TH/MM3 6.4 TH/MM3 Red Blood Count 2.89 MIL/MM3 2.82 MIL/MM3 Hemoglobin 8.6 GM/DL 8.4 GM/DL Hematocrit 24.5 % 24.0 % Mean Corpuscular Volume 84.7 FL 85.0 FL Mean Corpuscular Hemoglobin 29.6 PG 29.9 PG Mean Corpuscular Hemoglobin 35.0 % 35.2 % Concent Red Cell Distribution Width 14.2 % 14.5 % Platelet Count 153 TH/MM3 191 TH/MM3 Mean Platelet Volume 9.4 FL 9.2 FL Neutrophils (%) (Auto) 22.6 % % Lymphocytes (%) (Auto) 58.8 % % Monocytes (%) (Auto) 18.1 % % Eosinophils (%) (Auto) 0.1 % % Basophils (%) (Auto) 0.4 % % Neutrophils # (Auto) 1.3 TH/MM3 TH/MM3 Lymphocytes # (Auto) 3.5 TH/MM3 TH/MM3 Monocytes # (Auto) 1.1 TH/MM3 TH/MM3 Eosinophils # (Auto) 0.0 TH/MM3 TH/MM3 Basophils # (Auto) 0.0 TH/MM3 TH/MM3 CBC Comment DIFF FINAL AUTO DIFF Differential Comment FINAL DIFF MANUAL Sodium Level 136 MEQ/L 132 MEQ/L Potassium Level 3.4 MEQ/L 3.2 MEQ/L Chloride Level 100 MEQ/L 98 MEQ/L Carbon Dioxide Level 27.8 MEQ/L 25.4 MEQ/L Anion Gap 8 MEQ/L 9 MEQ/L Blood Urea Nitrogen 4 MG/DL 2 MG/DL Creatinine 0.67 MG/DL 0.66 MG/DL Estimat Glomerular Filtration 92 ML/MIN 94 ML/MIN Rate Random Glucose 79 MG/DL 81 MG/DL Calcium Level 8.6 MG/DL 8.9 MG/DL Differential Total Cells 100 Counted Neutrophils % (Manual) 8 % Band Neutrophils % 1 % Lymphocytes % 71 % Monocytes % 19 % Eosinophils % 1 % Neutrophils # (Manual) 0.6 TH/MM3 Platelet Estimate NORMAL Platelet Morphology Comment NORMAL Acanthocytes 1+ Red Cell Morphology Comment ASSESSMENT/PLAN: metastatic lung cancer to the liver-not much gi can add to the management hoarse voice, [id number] not interested in egd at this point altered mental status due to sever hyponatremia-resolved for now hyponatremia secondary SIADH Recommendations ppi antireflux measures gi will sign off call us as needed It was a pleasure seeing Madison Mullins. Thank you for this consult. Entered by: Katey Ibrahim MD Nov 06, 2016 12:26
--- NOTE | 2016-11-06 13:28 | HHI.PR ---
Subjective Interval History Alert, verbal, oriented but confused, having a better day today, still occasionally crying during interview, Review of Systems Constitutional Constitutional Remarks General weakness, depression, 10 systems reviewed and otherwise negative but not reliable Vitals/Results Intake & Output 11/05/16 11/05/16 11/06/16 15:00 23:00 07:00 Intake Total 880 ml 240 ml 240 ml Output Total 800 ml 300 ml Balance 80 ml 240 ml -60 ml Intake Oral 880 ml 240 ml 240 ml IV Total 0 ml Output Urine Total 800 ml 300 ml # Voids 1 # Bowel Movements 0 0 Vital Signs Vital Signs Date Time Temp Pulse Resp B/P Pulse Ox O2 Delivery O2 Flow Rate FiO2 11/06/16 11:45 98.5 105 20 132/84 100 11/06/16 08:02 97.9 81 20 151/91 100 11/06/16 07:41 Room Air 11/06/16 04:00 162/94 11/06/16 00:00 97.6 95 18 167/95 99 11/05/16 20:30 Room Air 11/05/16 20:00 97.5 105 18 143/82 100 11/05/16 16:00 97.5 81 19 140/80 96 11/05/16 15:02 18 CBC/BMP: 11/06/16 0800 11/06/16 0800 Lab Results Laboratory Tests Test 11/06/16 08:00 White Blood Count 6.4 TH/MM3 Red Blood Count 2.82 MIL/MM3 Hemoglobin 8.4 GM/DL Hematocrit 24.0 % Mean Corpuscular Volume 85.0 FL Mean Corpuscular Hemoglobin 29.9 PG Mean Corpuscular Hemoglobin 35.2 % Concent Red Cell Distribution Width 14.5 % Platelet Count 191 TH/MM3 Mean Platelet Volume 9.2 FL Neutrophils (%) (Auto) % Lymphocytes (%) (Auto) % Monocytes (%) (Auto) % Eosinophils (%) (Auto) % Basophils (%) (Auto) % Neutrophils # (Auto) TH/MM3 Lymphocytes # (Auto) TH/MM3 Monocytes # (Auto) TH/MM3 Eosinophils # (Auto) TH/MM3 Basophils # (Auto) TH/MM3 CBC Comment AUTO DIFF Differential Total Cells 100 Counted Neutrophils % (Manual) 8 % Band Neutrophils % 1 % Lymphocytes % 71 % Monocytes % 19 % Eosinophils % 1 % Neutrophils # (Manual) 0.6 TH/MM3 Differential Comment FINAL DIFF MANUAL Platelet Estimate NORMAL Platelet Morphology Comment NORMAL Acanthocytes 1+ Red Cell Morphology Comment Sodium Level 132 MEQ/L Potassium Level 3.2 MEQ/L Chloride Level 98 MEQ/L Carbon Dioxide Level 25.4 MEQ/L Anion Gap 9 MEQ/L Blood Urea Nitrogen 2 MG/DL Creatinine 0.66 MG/DL Estimat Glomerular Filtration 94 ML/MIN Rate Random Glucose 81 MG/DL Calcium Level 8.9 MG/DL Physical Exam General General Appearance: No Acute Distress, Comfortable, Malnourished Eyes Eye Exam: Pupils Equal, Sclera White, Extraocular Movement Intact Ears & Nose Ears & Nose Exam: Nasal Mucosa [place] Throat Throat Exam: Oral Mucosa [place] & Moist Neck Neck Exam: Neck Supple, Trachea Midline Pulmonary Resp Exam: Breath Sounds Equal, No Distress, Crackles, Rhonchi Cardiology CV Exam: Regular, Normal Sinus Rhythm, Good Perfusion Chest/Breast Chest/Breast Remarks Right upper chest [id number] in place Gastrointestinal/Abdomen GI Exam: Soft, Non-Tender, Bowel Sounds Present Musculoskeletal MS Exam: Normal Tone Integumentary Skin Exam: Warm, Dry Extremeties Extremities Exam: No Edema, Pedal Pulses Palpable Neurologic Neuro Exam: Alert, Awake, Oriented, Speech Clear, Moving All Extremities Psychiatric Psych Exam: Appropriate Responses PUD Prophylasis PUD Prophylaxis: Protonix Assessment/Plan Assessment/Plan ASSESSMENT AND PLAN . s/p Altered mental status Metabolic Encephalopathy . Severe hyponatremia secondary to SIADH . Hypokalemia . Metastatic small cell lung cancer with mets to the liver s/p chemotherapy. . SIADH secondary to the lung cancer. . Anemia, probably secondary to chronic disease + Chemo. . Thrombocytopenia secondary to Chemo . Hypertension. . Chronic obstructive pulmonary disease. . Gastroesophageal reflux disease. . Asthma. PLAN Replace potassium fluid restriction 1400cc/day Tolvaptan discontinued, no longer needed monitor Na level albuterol symbicort PPI monitor CBC stop smoking ambulate am labs ss for d/c planning Keara Orr MD Nov 06, 2016 13:28
[2016-11-06 16:00] VITALS: BP 137/92; PULSE 83; RESP 20; TEMP 97.8; O2SAT 100
[2016-11-06] MEDS: CHLORHEXIDINE GLUCONATE 2 % 1 PACK (2 CLOTHS) TOP SCH (19:22)
[2016-11-06 20:00] VITALS: BP 121/76; PULSE 91; RESP 18; TEMP 97.3; O2SAT 100
[2016-11-07] VITALS: BP 166/85; PULSE 89; RESP 18; TEMP 97.9; O2SAT 100
[2016-11-07 08:00] VITALS: BP 151/92; PULSE 88; RESP 19; TEMP 96; O2SAT 100
[2016-11-07] MEDS: BUDESONIDE-FORMOTEROL 160/4.5 MCG INHALER INH SCH (08:44)
[2016-11-07] MEDS: PANTOPRAZOLE SODIUM 40 MG VIAL IV SCH (08:45)
[2016-11-07] MEDS: SODIUM CHLORIDE 1 GRAM TAB PO SCH (08:45)
[2016-11-07] MEDS: FLUCONAZOLE 100 MG TAB PO SCH (08:45)
[2016-11-07] MEDS: FUROSEMIDE 20 MG TAB PO SCH (08:46)
[2016-11-07] MEDS: HEPARIN SODIUM - SQ 10,000 UNITS/ML VIAL SQ SCH (08:46)
[2016-11-07] MEDS: ACETAMINOPHEN 325 MG TAB PO PRN (08:55)
[2016-11-07] MEDS ORDERED: POTASSIUM CHLORIDE 10 MEQ CONTROLLED RELEASE TAB PO SCH ×2 (09:00→21:00)
--- NOTE | 2016-11-07 10:55 | HHI.PR ---
Review of Systems Constitutional Constitutional Remarks General weakness, depression, 10 systems reviewed and otherwise negative but not reliable Vitals/Results Intake & Output 11/06/16 11/06/16 11/07/16 15:00 23:00 07:00 Intake Total 600 ml 240 ml 240 ml Output Total 700 ml Balance -100 ml 240 ml 240 ml Intake Oral 600 ml 240 ml 240 ml IV Total 0 ml Output Urine Total 700 ml # Voids 2 2 # Bowel Movements 0 1 0 Vital Signs Vital Signs Date Time Temp Pulse Resp B/P Pulse Ox O2 Delivery O2 Flow Rate FiO2 11/07/16 08:00 96.0 88 19 151/92 100 11/07/16 00:00 97.9 89 18 166/85 100 11/06/16 20:00 97.3 91 18 121/76 100 11/06/16 16:26 18 11/06/16 16:00 97.8 83 20 137/92 100 11/06/16 11:45 98.5 105 20 132/84 100 CBC/BMP: 11/06/16 0800 11/06/16 0800 Physical Exam General General Appearance: No Acute Distress, Comfortable, Malnourished Eyes Eye Exam: Pupils Equal, Sclera White, Extraocular Movement Intact Ears & Nose Ears & Nose Exam: Nasal Mucosa [place] Throat Throat Exam: Oral Mucosa [place] & Moist Neck Neck Exam: Neck Supple, Trachea Midline Pulmonary Resp Exam: Breath Sounds Equal, No Distress, Crackles, Rhonchi Cardiology CV Exam: Regular, Normal Sinus Rhythm, Good Perfusion Chest/Breast Chest/Breast Remarks Right upper chest [id number] in place Gastrointestinal/Abdomen GI Exam: Soft, Non-Tender, Bowel Sounds Present Musculoskeletal MS Exam: Normal Tone Integumentary Skin Exam: Warm, Dry Extremeties Extremities Exam: No Edema, Pedal Pulses Palpable Neurologic Neuro Exam: Alert, Awake, Oriented, Speech Clear, Moving All Extremities Psychiatric Psych Exam: Appropriate Responses PUD Prophylasis PUD Prophylaxis: Protonix Assessment/Plan Assessment/Plan ASSESSMENT AND PLAN . s/p Altered mental status Metabolic Encephalopathy . Severe hyponatremia secondary to SIADH . Hypokalemia . Metastatic small cell lung cancer with mets to the liver s/p chemotherapy. . SIADH secondary to the lung cancer. . Anemia, probably secondary to chronic disease + Chemo. . Thrombocytopenia secondary to Chemo . Hypertension. . Chronic obstructive pulmonary disease. . Gastroesophageal reflux disease. . Asthma. PLAN Replace potassium fluid restriction 1400cc/day Tolvaptan discontinued, no longer needed monitor Na level albuterol symbicort PPI monitor CBC stop smoking ambulate am labs for d/c planning Keara Orr MD Nov 07, 2016 10:55
[2016-11-07 11:13] LABS: AUTOMATED NEUTROPHIL # 1.1 TH/MM3 (1.8-7.7); BASOPHIL % 0.7 % (0.0-2.0); EOSINOPHIL # 0.2 TH/MM3 (0-0.4); HEMATOCRIT 25.2 % (35.0-46.0); HEMO FLAGS DIFF FINAL; LYMPH % 49.3 % (9.0-44.0); LYMPHOCYTE # 3.1 TH/MM3 (1.0-4.8); MEAN CELL VOLUME 85.5 FL (80.0-100.0); MEAN CORPUSCULAR HEMOGLOBIN 29.5 PG (27.0-34.0); MEAN CORPUSCULAR HGB CONC 34.5 % (32.0-36.0); MONO % 28.6 % (0.0-8.0); NEUT % 18.4 % (16.0-70.0); PLATELET COUNT 224 TH/MM3 (150-450); RED BLOOD COUNT 2.94 MIL/MM3 (4.00-5.30); RED CELL DISTRIBUTION WIDTH 14.8 % (11.6-17.2); WHITE BLOOD COUNT 6.2 TH/MM3 (4.0-11.0)
[2016-11-07 11:23] LABS: BICARBONATE 23.5 MEQ/L (21.0-32.0); POTASSIUM 3.4 MEQ/L (3.5-5.1)
[2016-11-07 12:00] VITALS: BP 139/80; PULSE 100; RESP 17; TEMP 97.7; O2SAT 100
--- NOTE | 2016-11-07 13:27 | PD.ONC.PN ---
Subjective Subjective Remarks Afebrile overnight. Patient anxious but otherwise without complaint. She is not confused. She denies headache or dizziness. She really wants to go home. Objective Data Date Time Temp Pulse Resp B/P Pulse Ox O2 Delivery O2 Flow Rate FiO2 11/07/16 12:00 97.7 100 17 139/80 100 11/07/16 09:00 100 Room Air 11/07/16 08:00 96.0 88 19 151/92 100 11/07/16 00:00 97.9 89 18 166/85 100 11/06/16 20:00 97.3 91 18 121/76 100 11/06/16 16:26 18 11/06/16 16:00 97.8 83 20 137/92 100 11/07/16 11/07/16 11/07/16 07:00 15:00 23:00 Intake Total 240 ml Balance 240 ml Result Diagram: 11/07/16 1056 11/07/16 1056 Laboratory Results Laboratory Tests Test 11/07/16 10:56 White Blood Count 6.2 TH/MM3 Red Blood Count 2.94 MIL/MM3 Hemoglobin 8.7 GM/DL Hematocrit 25.2 % Mean Corpuscular Volume 85.5 FL Mean Corpuscular Hemoglobin 29.5 PG Mean Corpuscular Hemoglobin 34.5 % Concent Red Cell Distribution Width 14.8 % Platelet Count 224 TH/MM3 Mean Platelet Volume 8.9 FL Neutrophils (%) (Auto) 18.4 % Lymphocytes (%) (Auto) 49.3 % Monocytes (%) (Auto) 28.6 % Eosinophils (%) (Auto) 3.0 % Basophils (%) (Auto) 0.7 % Neutrophils # (Auto) 1.1 TH/MM3 Lymphocytes # (Auto) 3.1 TH/MM3 Monocytes # (Auto) 1.8 TH/MM3 Eosinophils # (Auto) 0.2 TH/MM3 Basophils # (Auto) 0.0 TH/MM3 CBC Comment DIFF FINAL Differential Comment Sodium Level 130 MEQ/L Potassium Level 3.4 MEQ/L Chloride Level 96 MEQ/L Carbon Dioxide Level 23.5 MEQ/L Anion Gap 11 MEQ/L Blood Urea Nitrogen 4 MG/DL Creatinine 0.78 MG/DL Estimat Glomerular Filtration 78 ML/MIN Rate Random Glucose 126 MG/DL Calcium Level 8.3 MG/DL Administered Medications Medications (Trade) Dose Ordered Sig/Ermias Route PRN Reason Start Time Stop Time Status Last Admin Dose Admin Pantoprazole Sodium (Protonix Inj) 40 mg DAILY IV 11/01/16 09:00 11/07/16 08:45 Chlorhexidine Gluconate (Chlorhexidine 2% Cloth) Taper DAILY@04 TOP 11/01/16 04:00 10/28/17 03:59 11/02/16 05:27 Acetaminophen (Tylenol) 650 mg Q4H PRN PO HEADACHE 11/01/16 04:00 11/07/16 08:55 Budesonide/ Formoterol Fumarate (Symbicort 160-4.5 Inh) 1 puff Q12HR INH 11/01/16 09:00 11/02/16 21:00 Fluconazole (Diflucan) 100 mg DAILY PO 11/04/16 09:00 11/07/16 08:45 Sodium Chloride (Sodium Chloride) 1 gm DAILY PO 11/06/16 09:00 11/07/16 08:45 Furosemide (Lasix) 20 mg DAILY PO 11/06/16 09:00 11/07/16 08:46 Heparin Sodium (Porcine) (Heparin Inj) 5,000 units Q12HR SQ 11/05/16 21:00 11/07/16 08:46 Objective Remarks GENERAL: Middle aged female, sitting up in bed, anxious. SKIN: Warm and dry. HEAD: Normocephalic. EYES: No injection or drainage. NECK: Supple, trachea midline. CARDIOVASCULAR: Regular rate and rhythm RESPIRATORY: Breath sounds equal bilaterally. No accessory muscle use. GASTROINTESTINAL: Abdomen soft, non-tender, nondistended. EXTREMITIES: No cyanosis NEUROLOGICAL: awake and alert, normal speech. moving all extremities. 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 Hx/Workup: Pt recently diagnosed with extensive stage small cell lung cancer. She has mets to the liver. She received one dose of chemotherapy with Cisplatin and Etoposide. She was brought to the ER after she became confused and had difficulty speaking. (2) Hyponatremia Status: Acute Plan: Na 130 today -- CT and MRI of brain were both negative for any acute processes. -- On Samsca 15mg po daily -- Nephrology following (3) Diarrhea Status: Acute Plan: --c. diff pending. Assessment 51 y/o female w/ SCLC admitted with difficulty speaking and dizziness. Plan 1. clear for discharge 2. follow up Monday at noon @ [facility] as scheduled. Attending Statement The exam, history, and the medical decision-making described in the above note were completed with the assistance of the mid-level provider. I reviewed and agree with the findings presented. I attest that I had a [id number] encounter with the patient on the same day, and personally performed and documented my assessment and findings in the medical record. Johanna Orozco Nov 07, 2016 13:27 Aakash Gama MD Nov 14, 2016 09:06
[2016-11-07] MEDS ORDERED: SODI1TAB PO (14:08)
[2016-11-07] MEDS ORDERED: FURO1TAB62 PO (14:08)
--- NOTE | 2016-12-08 15:31 | HHI.DS ---
Discharge Summary Admission Date Oct 31, 2016 at 19:05 Discharge Date: Nov 07, 2016 Admitting Diagnosis Severe Hyponatremia Brief History The patient was a 51-year-old female with medical history of COPD, gastroesophageal reflux disease, recent diagnosis of metastatic small cell lung cancer diagnosed via CT-guided biopsy of a liver mass on October 14. The patient underwent chemotherapy on October 22 with cisplatin and MANAGER CONTROL-16. In addition she has a history of SIADH, normocytic anemia, chronic hyponatremia and hypertension. She presented to [facility] ED via EMS for evaluation of dizziness and confusion. Imaging Last Impressions Brain MRI 11/03/16 0000 Signed Impressions: Service Date/Time: October 15:32 - CONCLUSION: Normal exam. The previously noted area of abnormal signal identified within the subcortical white matter of the right frontal lobe has resolved. No abnormal enhancement seen to suggest metastatic disease.. Gertrude Forrest MD Head CT 10/31/160 Signed Impressions: Service Date/Time: Monday, October 31, 2016 18:30 - CONCLUSION: Normal examination for a patient of this age. Clem Ingram MD Chest X-Ray 10/31/161719 Signed Impressions: Service Date/Time: Monday, October 31, 2016 17:59 - CONCLUSION: 1. Improvement in left upper lobe airspace disease since chest CT from October 11. Clem Ingram MD PE at Discharge General Appearance: No Acute Distress, Comfortable, Malnourished Eyes Eye Exam: Pupils Equal, Sclera White, Extraocular Movement Intact Ears & Nose Ears & Nose Exam: Nasal Mucosa Healy Throat Throat Exam: Oral Mucosa Healy & Moist Neck Neck Exam: Neck Supple, Trachea Midline Pulmonary Resp Exam: Breath Sounds Equal, No Distress, Crackles, Rhonchi Cardiology CV Exam: Regular, Normal Sinus Rhythm, Good Perfusion Chest/Breast Chest/Breast Remarks Right upper chest [id number] in place Gastrointestinal/Abdomen GI Exam: Soft, Non-Tender, Bowel Sounds Present Musculoskeletal MS Exam: Normal Tone Integumentary Skin Exam: Warm, Dry Extremeties Extremities Exam: No Edema, Pedal Pulses Palpable Neurologic Neuro Exam: Alert, Awake, Oriented, Speech Clear, Moving All Extremities Psychiatric Psych Exam: Appropriate Responses PUD Prophylasis PUD Prophylaxis: Protonix Hospital Course In the ED she was given 1 liter bolus of normal saline and placed on 3% saline at 30 mL per hour. She denied any chest pain, shortness of breath, cough or any constitutional symptoms. Her stated that she had similar presentations normally when her sodium is low. Per the ED report, the patient became confused and had difficulty finding words. Also, her stated that she has been having decreased p.o. intake along with feeling nauseous. Her baseline sodium level ranges between 126-133. Her laboratory data showed severe hyponatremia with a sodium level of 111. She was also on salt tablets at home. Due to her mental status, a CT scan of the brain was obtained which showed no evidence of any acute intracranial process. These are the diagnoses that were used during this plan of care and hospital stay . s/p Altered mental status Metabolic Encephalopathy . Severe hyponatremia secondary to SIADH . Hypokalemia . Metastatic small cell lung cancer with mets to the liver s/p chemotherapy. . SIADH secondary to the lung cancer. . Anemia, probably secondary to chronic disease + Chemo. . Thrombocytopenia secondary to Chemo . Hypertension. . Chronic obstructive pulmonary disease. . Gastroesophageal reflux disease. . Asthma. PLAN was to Replace potassium to treat her hypokalemia and do fluid restriction 1400cc/day Medications assessed. Tolvaptan discontinued, no longer needed monitor Na level due to hyponatremia, patient was treated with Diflucan during this hospital stay. albuterol treatments were used for any shortness of breath or symptoms of asthma /wheezing along with symbicort. Patient was known to have long-standing COPD. PPI prophylaxis, DVT T prophylaxis with heparin CBC was monitored, treated with medical management due to her thrombocytopenia from the chemotherapy treatment. Her levels showed slow improvement over the course of treatment. She was advised to stop smoking, and educated on her critical needs for quality of life Patient had multiple labs vital signs in tests during done which included MRI. She received gentle hydration with IV fluids and monitoring of her labs eluding her sodium level. ambulated during hospital stay due to debility. We also needed to monitor her safety during hospital stay and discharge Patient was seen per her dispatch associate, for SAIDH. This included medical management. Patient was seen per her real estate investor, His concerns were her Altered mental status with Metabolic Encephalopathy . Severe hyponatremia secondary to SIADH . Metastatic small cell lung cancer with mets to the liver s/p chemotherapy. . SIADH secondary to the lung cancer. . Anemia, probably secondary to chronic disease + Chemo. . Thrombocytopenia secondary to Chemo Assistance was given to monitor and manage her medical needs so she could return to her outpatient setting. This was done with medical management and lab monitoring . Pt Condition on Discharge: Stable Discharge Disposition: Discharge Home Discharge Instructions DIET: Follow Instructions for: As Tolerated, No Restrictions Additional Diet Instructions: 1200 fluid restriction per 24 hours Activities you can perform: Weight Bearing as Kalin Follow up Referrals: Internal Medicine Oncology - 11/10/16 with Aakash Gama MD Continued Medications: Albuterol 18 GM Inh (Ventolin Hfa 18 GM Inh) 90 Mcg/Act Aer 2 PUFF INH Q6H PRN SHORTNESS OF BREATH #1 Ref 0 INHALER Discontinued Medications: Cefuroxime (Ceftin) 500 Mg Tab 500 MG PO Q12HR Infection #14 TAB Brooke Donald Dec 08, 2016 15:31
== END 2016-11-07 15:53 | disposition home or self-care (01) | DRG 643 ==
LOC: NEPE 16:58 → NEDA 19:05 → NEDH 23:08 → N03A 11-01 01:23 → N07B 11-04 07:02
PROVIDERS: ADMIT Internal Medicine Critical Care Medicine; ATTEND Specialist
DX: E22.2 Syndrome of inappropriate secretion of antidiuretic hormone (principal); G93.41 Metabolic encephalopathy; D61.818 Other pancytopenia; C78.7 Secondary malignant neoplasm of liver and intrahepatic bile duct; D69.59 Other secondary thrombocytopenia; C34.90 Malignant neoplasm of unspecified part of unspecified bronchus or lung; D64.81 Anemia due to antineoplastic chemotherapy; R13.10 Dysphagia, unspecified; D63.8 Anemia in other chronic diseases classified elsewhere; I10 Essential (primary) hypertension; J44.9 Chronic obstructive pulmonary disease, unspecified; E87.6 Hypokalemia; K21.0 Gastro-esophageal reflux disease with esophagitis; R19.7 Diarrhea, unspecified; J45.909 Unspecified asthma, uncomplicated; F17.210 Nicotine dependence, cigarettes, uncomplicated; T45.1X5A Adverse effect of antineoplastic and immunosuppressive drugs, initial encounter
CPT/HCPCS: 70450; 70553; 71010; 80048; 80053; 80307; 81001; 83735; 83930; 83935; 84100; 84132; 84295; 84300; 84443; 84484; 84550; 84702; 85007; 85025; 85027; 85610; 85730; 87641; 93005; 94003; 94640; 94664; 96360; A9579; C9113; J1100; J1644; J1940; J2060; J3475; J3480; J7030; J7050; J7613

== ENCOUNTER 2016-12-07 10:44 | Inpatient (IN) | payer OTHER ==
[2016-12-07] VITALS (24 sets, daily range): BP systolic 86–141; BP diastolic 61–88; PULSE 104–143; RESP 16–31; TEMP 97.8–101; O2SAT 92–100
[~2016-12-07] VITALS: Ht 152.4 cm; Wt 55.7 kg
[~2016-12-07 10:44] MED LIST changes: -CEFT500T3 PO; +FURO1TAB62 PO
--- NOTE | 2016-12-07 11:11 | PD ---
HPI Chief Complaint: General Weakness Time Seen by Provider: 11:11 Travel History International Travel<30 days: No Contact w/Intl Traveler<30days: No Traveled to known affect area: No History of Present Illness HPI 51-year-old female came to the emergency room with history of altered mental status, lethargy, fever for past couple days. Her has brought her in. Patient has history of small cell carcinoma of her lungs and currently going through chemotherapy. Her last chemotherapy was 3 weeks ago. She was supposed to get another wound yesterday but given her condition she was given IV hydration and the chemotherapy was skipped. However her condition worsened and her decided to bring her to the emergency room. Patient is laying on the stretcher with her eyes closed but opens her eyes and answers questions upon calling her name. She was afebrile in the emergency room. However her said that she received Tylenol at 4 in the 8 this morning. She is not complaining of any pain. Patient has metastatic disease in her liver and bones. She was tachycardic and hypertensive in the ER. As per the she has been nauseous and vomited few times couple days ago. [facility] Past Medical History Narrative Medical List of her past medical, surgical, social and family history is reviewed from the nursing note. Hx Anticoagulant Therapy: No Arthritis: No Asthma: Yes Autoimmune Disease: No Anxiety: No Depression: No Heart Rhythm Problems: No Cancer: Yes Cardiovascular Problems: Yes High Cholesterol: No Chemotherapy: Yes Chest Pain: No Congestive Heart Failure: No COPD: Yes Cerebrovascular Accident: No Diabetes: No Diminished Hearing: No Endocrine: No Gastrointestinal Disorders: Yes GERD: Yes Glaucoma: No Genitourinary: No Hepatitis: No Hypertension: Yes Immune Disorder: No Implanted Vascular Access Dvce: No Musculoskeletal: Yes Neurologic: No Psychiatric: No Reproductive: No Respiratory: Yes Immunizations Current: Yes Migraines: Yes Seizures: No Sleep Apnea: No Thyroid Disease: No Ulcer: Yes ?: Not Past Surgical History Abdominal Surgery: No AICD: No Arteriovenous Shunt: No Cardiac Surgery: No Ear Surgery: No Endocrine Surgery: No Eye Surgery: No Genitourinary Surgery: No Gynecologic Surgery: Yes (tubal ligation and partical hysterectomy ) Hysterectomy: Yes Insulin Pump: No Joint Replacement: No Neurologic Surgery: No Oral Surgery: No Pacemaker: No Thoracic Surgery: No Other Surgery: Yes (93' BREAST AUGMENTATION ) Social History Alcohol Use: No Tobacco Use: Yes (1.5PPD) Substance Use: No Allergies-Medications (Allergen,Severity, Reaction): Coded Allergies: Lipitor (Verified Adverse Reaction, Severe, Myalgia, 12/07/16) Codeine (Verified Adverse Reaction, Intermediate, Sedation, 12/07/16) Uncoded Allergies: SEASONAL ALLERGIES (Allergy, Mild, 03/13/08) estroven (Adverse Reaction, Intermediate, raised BP, 06/12/15) Comments List of her allergies reviewed from the nursing note. Reported Meds & Prescriptions Reported Meds & Active Scripts Active Reported Singulair (Montelukast Sodium) 10 Mg Tab 10 Mg PO DAILY Flexeril (Cyclobenzaprine HCl) 10 Mg Tab 10 Mg PO HS Breo Ellipta Inh (Fluticasone/Vilanterol) 100-25 Mcg/Act Inh 1 Puff INH DAILY Use daily at the same time. Xanax (Alprazolam) 0.5 Mg Tab 0.5 Mg PO HS PRN Pantoprazole (Pantoprazole Sodium) 40 Mg Tab 40 Mg PO BID Prochlorperazine Maleate 5 Mg Tab 5 Mg PO Q4-6H PRN Amlodipine (Amlodipine Besylate) 2.5 Mg Tab 2.5 Mg PO DAILY Mapap (Acetaminophen) 500 Mg Tab 1,000 Mg PO BID PRN Ventolin Hfa 18 GM Inh (Albuterol Sulfate) 90 Mcg/Act Aer 2 Puff INH Q6H PRN Narrative Medication List of her home medications reviewed from the nursing note. Review of Systems Except as stated in HPI: all other systems reviewed are Neg Physical Exam Narrative GENERAL: Sleeping, wakes up upon calling her name, moderate distress SKIN: Warm and dry. Pale, alopecia HEAD: Atraumatic. Normocephalic. EYES: Pupils equal and round. No scleral icterus. No injection or drainage. ENT: No nasal bleeding or discharge. Dry lips and coated tongue. NECK: Trachea midline. No JVD. CARDIOVASCULAR: Regular rate and rhythm. No murmur appreciated. RESPIRATORY: No accessory muscle use. Clear to auscultation. Breath sounds equal bilaterally. GASTROINTESTINAL: Abdomen soft, non-tender, nondistended. Hepatic and splenic margins not palpable. MUSCULOSKELETAL: No obvious deformities. No clubbing. No cyanosis. No edema. NEUROLOGICAL: Awake and alert. No obvious cranial nerve deficits. Motor grossly within normal limits. Normal speech. PSYCHIATRIC: Appropriate mood and affect; insight and judgment normal. Data Data Last Documented VS Vital Signs Date Time Temp Pulse Resp B/P Pulse Ox O2 Delivery O2 Flow Rate FiO2 12/07/16 15:37 105 18 137/80 98 Room Air 12/07/16 13:49 97.9 Orders Complete Blood Count With Diff (12/07/16 11:28) Comprehensive Metabolic Panel (12/07/16 11:28) Lactic Acid Sepsis Protocol (12/07/16 11:28) Magnesium (Mg) (12/07/16 11:28) Urinalysis - C+S If Indicated (12/07/16 11:28) Blood Culture (12/07/16 11:28) Chest, Single Ap (12/07/16 11:28) Blood Glucose (12/07/16 11:28) Ecg Monitoring (12/07/16 11:28) Iv Access Insert/Monitor (12/07/16 11:28) Oximetry (12/07/16 11:28) Oxygen Administration (12/07/16 11:28) Sodium Chlor 0.9% 1000 Ml Inj (Ns 1000 M (12/07/16 11:28) Sodium Chlor 0.9% 1000 Ml Inj (Ns 1000 M (12/07/16 11:28) Sodium Chlor 0.9% 1000 Ml Inj (Ns 1000 M (12/07/16 11:28) Ct Brain W/O Iv Contrast(Rout) (12/07/16 ) Cefepime Inj (Maxipime Inj) (12/07/16 11:45) Mri Brain W&W/O Contrast (12/07/16 ) Consult Medical Oncology (12/07/16 ) (Hub Use Only)Inp Phy Cons/Ref (12/07/16 ) Calcium Gluconate Inj (Calcium Gluconate (12/07/16 13:30) ^ Straight Catheter (12/07/16 13:50) Type And Screen (12/07/16 14:00) Urine Culture (12/07/16 14:05) Vancomycin Inj (Vancomycin Inj) (12/07/16 14:45) Magnesium Sulfate 1 Gm Premix (Magnesium (12/07/16 15:15) Magnesium Sulfate 1 Gm Premix (Magnesium (12/07/16 15:15) Red Blood Cells (Rbc) (12/07/16 15:06) Blood Product Administration .UPON TRANSFUSION (12/07/16 15:06) Sodium Chlor 0.9% 250 Ml Inj (Ns 250 Ml (12/07/16 15:15) Admit Order (Ed Use Only) (12/07/16 15:37) Labs Laboratory Tests Test 12/07/16 12/07/16 12/07/16 12/07/16 12:25 14:05 14:21 15:06 White Blood Count 71.4 TH/MM3 Red Blood Count 2.27 MIL/MM3 Hemoglobin 6.8 GM/DL Hematocrit 20.2 % Mean Corpuscular Volume 88.8 FL Mean Corpuscular Hemoglobin 29.8 PG Mean Corpuscular Hemoglobin 33.6 % Concent Red Cell Distribution Width 17.8 % Platelet Count 166 TH/MM3 Mean Platelet Volume 8.6 FL Neutrophils (%) (Auto) % Lymphocytes (%) (Auto) % Monocytes (%) (Auto) % Eosinophils (%) (Auto) % Basophils (%) (Auto) % Neutrophils # (Auto) TH/MM3 Lymphocytes # (Auto) TH/MM3 Monocytes # (Auto) TH/MM3 Eosinophils # (Auto) TH/MM3 Basophils # (Auto) TH/MM3 CBC Comment AUTO DIFF Differential Total Cells 100 Counted Neutrophils % (Manual) 68 % Band Neutrophils % 28 % Lymphocytes % 1 % Monocytes % 1 % Neutrophils # (Manual) 70.0 TH/MM3 Metamyelocytes 2 % Differential Comment FINAL DIFF MANUAL Toxic Vacuolation PRESENT Platelet Estimate NORMAL Platelet Morphology Comment NORMAL Tear Drop Cells 1+ [place] Cells 1+ Acanthocytes OCC Keratocytes 1+ Sodium Level 131 MEQ/L Potassium Level 3.6 MEQ/L Chloride Level 101 MEQ/L Carbon Dioxide Level 18.9 MEQ/L Anion Gap 11 MEQ/L Blood Urea Nitrogen 24 MG/DL Creatinine 1.31 MG/DL Estimat Glomerular Filtration 43 ML/MIN Rate Random Glucose 83 MG/DL Lactic Acid Level 1.1 mmol/L Calcium Level 6.8 MG/DL Protein Corrected Calcium 7.7 MG/DL Magnesium Level 1.3 MG/DL Total Bilirubin 0.3 MG/DL Aspartate Amino Transf 61 U/L (AST/SGOT) Alanine Aminotransferase 22 U/L (ALT/SGPT) Alkaline Phosphatase 79 U/L Total Protein 5.4 GM/DL Albumin 2.3 GM/DL Urine Color LIGHT-YELLOW Urine Turbidity CLEAR Urine pH 5.0 Urine Specific [place] 1.008 Urine Protein TRACE mg/dL Urine Glucose (UA) NEG mg/dL Urine Ketones NEG mg/dL Urine Occult Blood SMALL Urine Nitrite NEG Urine Bilirubin NEG Urine Urobilinogen LESS THAN 2.0 MG/DL Urine Leukocyte Esterase NEG Urine RBC 1 /hpf Urine WBC 3 /hpf Urine Squamous Epithelial 1 /hpf Cells Urine Bacteria RARE /hpf Microscopic Urinalysis Comment CATH-CULTURE IND Blood Type B POSITIVE Antibody Screen NEGATIVE Crossmatch Leukocyte-Reduced Red Blood Cells Blood Bank Comment MDM Medical Decision Making Medical Screen Exam Complete: Yes Emergency Medical Condition: Yes Medical Record Reviewed: Yes Differential Diagnosis Sepsis, neutropenic fever, UTI, pneumonia, brain metastases Narrative Course 1:24 PM I spoke with patient's oncologist Dr. Martins and he agreed with the treatment and the plan. He wanted an MRI with and without contrast of the brain to rule out brain metastases. This has been ordered. Currently awaiting for the CBC to return. Chemistry shows mild hyponatremia, hypocalcemia and mild acidosis. Chest x-ray was negative. Patient will require admission. She is getting IV fluid as per sepsis protocol and IV cefepime. 4 PM patient's blood test result came back which shows significant leukocytosis with bandemia. She had hypomagnesemia as well. I spoke with Dr. Cheney from [facility] hospitalist group. After listening to the history and labs she preferred the patient to be admitted to the [facility]. I discussed the lab results with Dr. Gama again and as per him the leukocytosis was probably reactionary to the post chemotherapy Neupogen. However he agreed with adding vancomycin. Patient was given 2 units of PRBC for her anemia. I spoke with the [facility] bulk driver who has accepted the patient. Patient just returned from the MRI and awaiting for the report. However she started having bad shaking chills and her rectal temp was 100.7. She was given 650 mg of Tylenol suppository and have ordered another liter of IV fluid bolus. She looks toxic at this point. I discussed with her regarding her CODE STATUS and he mentioned that a decision was not made by her yet. Patient is in critical condition at this point. Her heart rate is in the 130s. Critical Care Narrative Aggregate critical care time was 75 minutes. Time to perform other separately billable procedures was not included in the critical care time. My time did not include minutes spent treating any other patients simultaneously or on activities that did not directly contribute to the patient's treatment. The services I provided to this patient were to treat and/or prevent clinically significant deterioration that could result in: Sepsis, altered mental status, toxic, sepsis protocol, fluid resuscitation I provided critical care services requiring my management, as noted below: Chart data review, documentation time, medication orders and management, vital sign assessments/reviewing monitor data, ordering and reviewing lab tests, ordering and interpreting/reviewing x-rays and diagnostic studies, care of the patient and discussion of the patient with the admitting physicians. Procedures EKG Prior to Arrival: No Physician Communication Physician Communication Dr. Gama, Dr. Cheney, Dr. Ortiz Diagnosis Primary Impression: Sepsis Qualified Code: A41.9 - Sepsis, due to unspecified organism Additional Impressions: Bacteremia Altered mental status Qualified Code: R41.0 - Delirium Lung cancer, primary, with metastasis from lung to other site Qualified Code: C34.90 - Lung cancer, primary, with metastasis from lung to other site, unspecified laterality Admitting Information Admitting Physician Requests: Albino Roth MD Dec 07, 2016 11:11
[2016-12-07] MEDS ORDERED: SODIUM CHLOR 0.9% 1000 ML INJ 100 ML IV ONE (11:28)
[2016-12-07] MEDS ORDERED: SODIUM CHLOR 0.9% 1000 ML INJ 1,000 ML IV ONE ×3 (11:28→16:15)
[2016-12-07] MEDS ORDERED: CEFEPIME INJ 2,000 MG in SODIUM CHLORIDE 0.9% INJ 100 ML IV ONE (11:45)
--- NOTE | 2016-12-07 12:25 | RADRPT ---
EXAM DATE/TIME: 12/07/2016 11:51 [facility] COMPARISON: CHEST SINGLE AP, October 31, 2016, 17:59. INDICATIONS : Short of breath with wheezing MEDICAL HISTORY : Carcinoma, lung. Chronic obstructive pulmonary disease. SURGICAL HISTORY : Port placement ENCOUNTER: Initial ACUITY: 2 days PAIN SCORE: 0/10 LOCATION: Bilateral chest FINDINGS: [id number] is in good position. There is mild interstitial prominence. There is no alveolar cons olidation, pleural effusion or pneumothorax. Portions of the bony skeleton visualized are unremarkab le. CONCLUSION: 1. [id number] in good position. 2. Mild interstitial prominence, new from the comparison study. Gurwinder Hernandez MD FACR on December 07, 2016 at 12:12 Board Certified Radiologist. This report was verified electronically.
[2016-12-07 12:44] LABS: MEAN CELL VOLUME 88.8 FL (80.0-100.0); MEAN CORPUSCULAR HEMOGLOBIN 29.8 PG (27.0-34.0); MEAN CORPUSCULAR HGB CONC 33.6 % (32.0-36.0); PLATELET COUNT 166 TH/MM3 (150-450); RED BLOOD COUNT 2.27 MIL/MM3 (4.00-5.30); RED CELL DISTRIBUTION WIDTH 17.8 % (11.6-17.2); WHITE BLOOD COUNT 71.4 TH/MM3 (4.0-11.0)
--- NOTE | 2016-12-07 13:05 | RADRPT ---
EXAM DATE/TIME: 12/07/2016 12:10 [facility] COMPARISON: CT BRAIN W/O CONTRAST, October 31, 2016, 18:30. INDICATIONS : After chemo yesterday patient became hypotensive,lethargic and confused. RADIATION DOSE: 34.02 CTDIvol (mGy) MEDICAL HISTORY : Carcinoma, lung. Hypertension. Cardiovascular disease SURGICAL HISTORY : Hysterectomy. ENCOUNTER: Initial ACUITY: 1 day PAIN SCALE: 8/10 LOCATION: cranial TECHNIQUE: Multiple contiguous axial images were obtained of the head. Using automated exposure control and adj ustment of the mA and/or kV according to patient size, radiation dose was kept as low as reasonably a chievable to obtain optimal diagnostic quality images. FINDINGS: CEREBRUM: The ventricles are normal for age. No evidence of midline shift, mass lesion, hemorrhage or acute in farction. No extra-axial fluid collections are seen. POSTERIOR FOSSA: The cerebellum and brainstem are intact. The 4th ventricle is midline. The cerebellopontine angle i s unremarkable. EXTRACRANIAL: The visualized portion of the orbits is intact. SKULL: The calvaria is intact. No evidence of skull fracture. CONCLUSION: Negative for acute process.. Gurwinder Hernandez MD FACR on December 07, 2016 at 13:03 Board Certified Radiologist. This report was verified electronically.
[2016-12-07 13:13] LABS: CALCIUM-PROTEIN CORRECTED 7.7 MG/DL (8.5-10.1); MAGNESIUM 1.3 MG/DL (1.5-2.5); TOTAL BILIRUBIN ADULT 0.3 MG/DL (0.2-1.0)
[2016-12-07 13:14] LABS: BICARBONATE 18.9 MEQ/L (21.0-32.0)
[2016-12-07 13:15] LABS: POTASSIUM 3.6 MEQ/L (3.5-5.1)
[2016-12-07 13:28] LABS: HEMATOCRIT 20.2 % (35.0-46.0)
[2016-12-07 13:29] LABS: HEMO FLAGS AUTO DIFF
[2016-12-07] MEDS ORDERED: CALCIUM GLUCONATE 10% 1 GM/10 ML VIAL IV PUSH ONE (13:30)
[2016-12-07] MEDS ORDERED: MAPA500T PO (13:46)
[2016-12-07] MEDS ORDERED: LISI10TA3 PO (13:47)
[2016-12-07 13:58] LABS: BANDS 28 % (0-6); METAMYELOCYTES 2 % (0-1); POLYS (SEG NEUTROPHILS) 68 % (16-70); WBC DIFF SAMPLE 100
[2016-12-07 13:59] LABS: TEARDROP RBCS 1+ (NORMAL)
[2016-12-07 14:00] LABS: KERATOCYTES 1+ (NORMAL)
[2016-12-07 14:01] LABS: PLATELET ESTIMATE SMEAR NORMAL (NORMAL); TOXIC VACUOLATION PRESENT (NONE SEEN)
[2016-12-07 14:02] LABS: PLATELET MORPHOLOGY NORMAL (NORMAL)
[2016-12-07 14:03] LABS: BURR CELLS 1+ (NORMAL)
[2016-12-07 14:04] LABS: ACANTHOCYTES OCC (NORMAL); SCAN/DIFF FINAL DIFF MANUAL
[2016-12-07] MEDS ORDERED: PROC5TAB PO (14:16)
[2016-12-07] MEDS ORDERED: AMLO2.5T PO (14:16)
[2016-12-07] MEDS ORDERED: FLUT1INH INH (14:17)
[2016-12-07] MEDS ORDERED: PANT40TA3 PO (14:17)
[2016-12-07] MEDS ORDERED: ALPR.5 PO (14:17)
[2016-12-07] MEDS ORDERED: CYCL1TAB29 PO (14:17)
[2016-12-07] MEDS ORDERED: MONT10TA2 PO (14:18)
[2016-12-07 14:36] LABS: BACTERIA, URINE RARE /hpf; BLOOD, URINE SMALL (NEG); COMMENT (UR) CATH-CULTURE IND; CULTURE IF INDICATED CATH CULTURE IND; GLUCOSE,URINE NEG (NEG); KETONE, URINE NEG (NEG); NITRITE,URINE NEG (NEG); SQUAMOUS EPITHELIAL CELL URINE 1 /hpf (0-5); URINE COLOR LIGHT-YELLOW (YELLW/STRAW)
[2016-12-07] MEDS ORDERED: VANCOMYCIN INJ 1,000 MG in SODIUM CHLOR 0.9% 250 ML INJ 250 ML IV ONE (14:45)
[2016-12-07] MEDS ORDERED: MAGNESIUM SULFATE 1 GM PREMIX 100 ML IV ONE ×2 (15:15)
[2016-12-07] MEDS ORDERED: SODIUM CHLOR 0.9% 250 ML INJ 250 ML IV ONE (15:15)
[2016-12-07] MEDS ORDERED: CHLORHEXIDINE GLUCONATE 2 % 1 PACK (2 CLOTHS) TOP PRN (16:15)
[2016-12-07] MEDS ORDERED: ACETAMINOPHEN 650 MG SUPP RECTAL ONE (16:15)
[2016-12-07] MEDS ORDERED: MISCELLANEOUS NURSING INFORMATION XX SCH (16:15)
[2016-12-07] MEDS ORDERED: GADOBENATE DIM PF 529 MG/ML 10ML VIAL (for RAD MRI) IV ONE (16:22)
--- NOTE | 2016-12-07 16:32 | RADRPT ---
EXAM DATE/TIME: 12/07/2016 15:03 [facility] COMPARISON: MRI BRAIN W & W/O CONTRAST, November 03, 2016, 15:32. INDICATIONS : Altered mental status. CONTRAST: 10 cc MultiHance (gadobenate) IV MEDICAL HISTORY : Hypertension. Carcinoma, lung. SURGICAL HISTORY : Hysterectomy. Breast augmentation. ENCOUNTER: Initial ACUITY: 1 day PAIN SCORE: 0/10 LOCATION: Cranial TECHNIQUE: Multiplanar, multisequence MRI of the brain was performed both prior to and following the administration of paramagnetic contrast. FINDINGS: MRI of the brain was performed without and with contrast in this individual with a hist ory of lung cancer. There are no significant periventricular white matter changes evident. There is no restricted diffusi on. There is no parenchymal hemorrhage. There are no extra-axial fluid collections appreciated. Posterior fossa appears normal. Following intravenous administration of Gadolinium there is no abnormal contrast enhancement. CONCLUSION: 1. Negative MRI of the brain. I do not see an etiology for the patient's metastatic disease. 2. I do not see obvious findings of a meningeal carcinomatosis either. Gurwinder Hernandez MD FACR on December 07, 2016 at 16:12 Board Certified Radiologist. This report was verified electronically.
[2016-12-07] MEDS ORDERED: Vancomycin Consult Pharmacy 1 EA OTHER SCH (17:00)
[2016-12-07] MEDS ORDERED: DEXT 5%-NACL 0.9% 1000 ML INJ 1,000 ML IV SCH (17:00)
[2016-12-07] MEDS: RESP: ALBUTEROL 2.5 MG/IPRATROPIUM 0.5 MG NEB (SCH) INH ×2 (17:08→19:42)
[2016-12-07] MEDS ORDERED: DEXTROSE 50% IN WATER 50 ML VIAL(D50) IV PUSH PRN (17:15)
[2016-12-07] MEDS ORDERED: GLUCAGON 1 MG/ML VIAL OTHER PRN (17:15)
--- NOTE | 2016-12-07 17:32 | RADRPT ---
EXAM DATE/TIME: 12/07/2016 16:45 [facility] COMPARISON: No previous studies available for comparison. INDICATIONS : Confusion, diffuse abdominal pain, dehydration. ORAL CONTRAST: No oral contrast ingested. RADIATION DOSE: 4.51 CTDIvol (mGy) MEDICAL HISTORY : Carcinoma, lung. Hypertension. Sepsis. Currently on chemotherapy for lung cance r. SURGICAL HISTORY :Hysterectomy. ENCOUNTER: Initial ACUITY: 1 day PAIN SCALE: 5/10 LOCATION: Bilateral lower quadrant TECHNIQUE: Volumetric scanning of the abdomen and pelvis was performed. Using automated exposure control and adjustment of the mA and/or kV according to patient size, radiation dose was kept as low as reasonably achievable to obtain optimal diagnostic quality images. FINDINGS: Coarse interstitial changes are seen in both lungs with small pleural effusions more so on the right than the left. There is no pericardial effusion. The liver is free of focal defects. The gallbladder is prominent. Several small splenules are identi fied. Portion of the pancreas visualized is unremarkable. There is induration about the left kidney. Lack of intravenous contrast makes exclusion of pyeloneph ritis difficult. The right kidney appears unremarkable. There is no ascites. A large amount of stool is seen in the descending and sigmoid colon. Pelvic contents are otherwise u nremarkable. There is no ascites or adenopathy. The abdominal wall is intact. There is no free air. CONCLUSION: 1. Abnormal lung bases with coarse interstitial changes suggesting fibrosis. 2. Abnormal left kidney. Pyelonephritis cannot be excluded without contrast. 3. The gallbladder appears prominent but unremarkable. 4. I do not see any etiology for the patient's abdominal pain. Gurwinder Hernandez MD FACR on December 07, 2016 at 17:01 Board Certified Radiologist. This report was verified electronically.
[2016-12-07] MEDS: INSULIN NovoLIN REGULAR SUPPLEMENTAL SCALE SQ SCH (18:00)
[2016-12-07] MEDS ORDERED: PIPERACIL-TAZO 3.375 GM PREMIX 50 ML IV SCH (18:00)
--- NOTE | 2016-12-07 18:04 | MH ---
cc: MARGARITA DELGADO M.D. 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 She presented to [facility] ED with altered mental status, lethargy and fever for the past couple days. Her last chemotherapy was two days ago however when the patient went to receive another session yesterday it was not given due to her condition and instead she was given IV hydration. On arrival to the ED, the patient was tachycardic with a heart rate of 110-120s and initially she was hypotensive with a systolic blood pressure 80s-90s. She also was found to have a temperature of 100.7 rectally. In the ED she was given 2 liter boluses of normal saline with improvement of her blood pressure to 141/86. Her laboratory data showed mild acute kidney injury with a creatinine level of 1.31 and hyponatremia with a sodium level of 131. In addition, the patient had significant leukocytosis with a WBC of 71.4 associated with bandemia 28. Also, her hemoglobin was 6.8 with hematocrit of 20.2. Two units of packed RBCs have been ordered by the ED physician. The patient received a Neulasta injection post her chemotherapy. Due to her altered mental status, a CT scan of the brain was obtained which was negative for acute process. The patient also had MRI of the brain which was negative for any metastatic disease. A chest x-ray in the ED showed Infusaport in good position and mild interstitial prominence. The patient received Vancomycin and cefepime in the ED, and a CT scan of the abdomen and pelvis has been ordered. Overall, history is limited as the patient is a poor historian. However, she is not complaining of any pain. PAST MEDICAL HISTORY Significant for - 1. Metastatic small cell lung cancer to the liver and spine. 2. Bronchial asthma. 3. History of migraine headaches. 4. GERD. 5. Hypertension. PAST SURGICAL HISTORY 1. Previous partial hysterectomy in 1999. 2. Previous breast implant in 1992. 3. Previous Infusaport placement. 4. Previous colonoscopy in 2014. ALLERGIES CODEINE AND LYRICA. REPORTED MEDICATIONS 1. Breo. 2. Xanax p.r.n. 3. Ventolin. 4. Flexeril. 5. Amlodipine. 6. Singulair. 7. Protonix. FAMILY HISTORY Noncontributory. SOCIAL HISTORY The patient has a history of tobacco use, nonsmoker. REVIEW OF SYSTEMS As per HPI. The rest of the review of systems limited as the patient is a poor historian. PHYSICAL EXAMINATION GENERAL: A 51-year-old female lying in bed in no acute respiratory distress. VITAL SIGNS: Temperature 100.7 rectally, pulse of 122, respiratory rate of 19, blood pressure 141/86, saturation 96% on 2 liters oxygen. HEENT: Atraumatic, normocephalic. Pupils equal, round, reactive to light and accommodation. Extraocular muscles intact. Conjunctivae pink. Nonicteric sclerae. Dry mucosal membranes noted. NECK: Supple. No JVD, adenopathy or thyromegaly. Trachea in the midline. CARDIOVASCULAR: Tachycardic. Normal S1, S2. No murmurs, rubs or gallops noted. PULMONARY: Bilateral equal air entry. No crackles or wheezing. ABDOMEN: Soft, nontender, no distention. Positive bowel sounds. EXTREMITIES: No cyanosis or clubbing. Trace edema. NEUROLOGIC: No focal sensory deficit. Lethargic. LABORATORY DATA WBC 71.4, hemoglobin 6.8, hematocrit 20, platelet count 166. Sodium 131, potassium 3.6, chloride 101, CO2 18, BUN 24, creatinine 1.31, glucose of 83, lactic acid 1.1, corrected calcium 7.7, AST 61, ALT 22, total bilirubin 0.3, albumin 2.3. Urinalysis showed 3 WBCs, negative leukocyte esterase. RADIOGRAPHIC STUDIES Chest x-ray showed Infusaport in good position. Brain MRI showed no evidence of metastatic disease. CT scan of the brain showed no acute intracranial process. IMPRESSION 1. Respiratory insufficiency. 2. Leukocytosis with bandemia. 3. Rule out aspiration pneumonia. 4. Severe anemia. 5. Acute kidney injury. 6. Dehydration. 7. Small cell lung cancer status post chemotherapy and Neupogen injection. 8. Chronic hyponatremia. 9. 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 10. Hypertension. 11. GERD. 12. History of bronchial asthma. RECOMMENDATIONS 1. Monitor neuro status closely and avoid sedatives. CT scan of the brain and MRI of the brain in the ED negative for acute process without any evidence of any metastatic disease. 2. Continue with oxygen and maintain sats above 92%. 3. Bronchodilators on a p.r.n. basis. 4. Monitor heart rate and blood pressure closely and maintain MAP greater than 65 mmHg. 5. Hold antihypertensive meds and continue with IV hydration. Lactic acid level measured at 1.1. 6. Monitor renal function, Is and Os and electrolyte replacement per protocol. We will continue with IV fluids in the form of D5 NS 75 mL/hr. The patient was given 2 liters of crystalloids in the ED with improvement of her blood pressure. 7. Keep n.p.o. for now until mental status improves and place on Protonix 40 mg IV daily for GI prophylaxis and underlying history of GERD. 8. Continue with broad-spectrum antibiotics in the form of Vancomycin and Zosyn and monitor for signs of infections which include fever and WBC. Two sets of blood cultures and urine culture have been performed in the ED, and the patient will obtain a blood culture from [facility]. I will followup on CT scan of the abdomen and pelvis. Infectious Disease evaluation. The case discussed with Dr. Chalino Fletcher. 9. We will check a Strep pneumonia and Legionella urinary antigen and repeat a chest x-ray in the a.m. 10. Monitor CBC. The patient is for transfusion 2 units of PRBC. We will repeat a post transfusion and we will consult Hematology service. The patient is known to Dr. Gama. 11. Sliding scale insulin with Accu-Cheks if needed for glycemic control. 12. GI prophylaxis with Protonix 40 mg daily and DVT prophylaxis with SCDs. We will hold off on chemical anticoagulation prophylaxis given underlying anemia requiring blood transfusions. Critical care time 40 minutes excluding procedures. MD MACY Sánchez/KI /5:03 PM /5:17 PM
[2016-12-07] MEDS: PANTOPRAZOLE SODIUM 40 MG VIAL IV SCH (18:13)
--- NOTE | 2016-12-07 20:53 | PD.ID.CON ---
History of Present Illness Service Infectious disease Consult Requested By Dr. Nunn Reason for Consult Evaluation and management of severe sepsis in an immune compromised patient. Primary Care Physician Adele Chow Diagnoses: History of Present Illness is a 51-year-old female with past medical history significant for extensive small cell lung carcinoma with metastatic lesions in the liver diagnosed in September 2016. Patient has undergone CT-guided biopsy of the liver mass. In addition to this patient is diagnosed with hyponatremia/ SIADH and has been managed with sodium tablets. Patient sees Dr.Awais Gama of Oncology and was last seen on November 29, 2016. Note in EMR is dictated on December 06, 2016 but the visit is for Nov 29 2016. Patient's family reports that her last Neulasta dose was approximately 3 weeks back. Her WBC count on December 05, 2016 was 11.5. During last visit at the oncology center patient was extremely weak, dehydrated appearing and patient was given IV fluids(1.5 L) for dehydration and she was discharged home. Due to worsening clinical condition and chills patient was brought into the hospital. Per patient's family she appears to be confused more so in the last few hours since admission. Based on review of the chart for outpatient as well as upon discussion with the family does not appear that she received any IV antibiotics or oral antibiotics prior to admission. On arrival to the emergency department, patient is tachycardic with heart rate of 110 to 120s, systolic blood pressure in the 80s to 90s. She was noted to have a temperature of 100.7 rectally. In the emergency department patient had 2 L of normal saline with improvement of her blood pressure 1 4186. Her initial lactic acid was 1.1. Review of her lab data shows, creatinine of 1.31 at baseline she is normal. Her sodium level was 131 which is close to her baseline. Of note patient is on salt tablets for her for hyponatremia. Patient has significant leukocytosis with a WBC of 71.4 with bandemia of 28. Her hemoglobin was 6.8 hematocrit 20.2. has been ordered 2 units of packed RBCs and is currently being transfused. Patient had a CT of the brain as well as an MRI which are reported as normal with no evidence of carcinomatosis. Sepsis workup was initiated emergency department she received cefepime IV as well as vancomycin in the emergency department. Patient has now been switched to a regimen of Zosyn IV as well as vancomycin IV. At the time of my evaluation patient is in the ICU, appears very critically ill, lethargic and unable to answer my questions. Patient is sitting up in bed having chills and fever. Patient would not let me flex her neck and was moaning. The patient was able to move her neck slightly from side to side. Patient is currently not on any pressors. Pertinent positives and negatives: No history of urinary symptoms. Patient has chronic back and neck pain no recent changes noted. No history of cough, chest pain or shortness of breath. No history of any skin lesions. Port is accessed regularly at the oncology center. No history of any diarrhea noted. No recent urological procedures. Infectious disease consulted for evaluation and management of severe sepsis in an immune compromised patient. Review of Systems ROS Limitations: Altered Mental Status Past Family Social History Allergies: Coded Allergies: Lipitor (Verified Adverse Reaction, Severe, Myalgia, 12/07/16) Codeine (Verified Adverse Reaction, Intermediate, Sedation, 12/07/16) Uncoded Allergies: SEASONAL ALLERGIES (Allergy, Mild, 03/13/08) estroven (Adverse Reaction, Intermediate, raised BP, 06/12/15) Past Medical History Asthma Migraine Pneumonia Small cell lung carcinoma with liver metastasis [facility] Past Surgical History Liver biopsy in 2015 Colonoscopy in 2014 Hysterectomy partial in 1999 Breast implants in 1992 Reported Medications Reported Meds & Active Scripts Active Reported Singulair (Montelukast Sodium) 10 Mg Tab 10 Mg PO DAILY Flexeril (Cyclobenzaprine HCl) 10 Mg Tab 10 Mg PO HS Breo Ellipta Inh (Fluticasone/Vilanterol) 100-25 Mcg/Act Inh 1 Puff INH DAILY Use daily at the same time. Xanax (Alprazolam) 0.5 Mg Tab 0.5 Mg PO HS PRN Pantoprazole (Pantoprazole Sodium) 40 Mg Tab 40 Mg PO BID Prochlorperazine Maleate 5 Mg Tab 5 Mg PO Q4-6H PRN Amlodipine (Amlodipine Besylate) 2.5 Mg Tab 2.5 Mg PO DAILY Mapap (Acetaminophen) 500 Mg Tab 1,000 Mg PO BID PRN Ventolin Hfa 18 GM Inh (Albuterol Sulfate) 90 Mcg/Act Aer 2 Puff INH Q6H PRN Active Ordered Medications Current Medications Medications (Trade) Dose Ordered Sig/Ermias Route Start Time Stop Time Status Last Admin (NS 250 ml Inj) 250 ml @ 15 mls/hr ONCE ONCE IV 12/07/16 15:15 12/08/16 07:54 12/07/16 17:35 (Protonix Inj) 40 mg DAILY IV 12/07/16 16:15 12/07/16 18:13 Miscellaneous Information 1 Q361D XX 12/07/16 16:15 (Chlorhexidine 2% Cloth) 3 pack Taper DAILY@04 TOP 12/08/16 04:00 12/04/17 03:59 Chlorhexidine Gluconate 3 pack 3 pack UNSCH PRN TOP 12/07/16 16:15 Vancomycin HCl 750 mg/Sodium Chloride 250 ml @ 250 mls/hr Q24H IV 12/08/16 16:00 Pharmacy Profile Note 0 ml @ 0 mls/hr UNSCH OTHER 12/07/16 17:00 (D5W-NS 1000 ml Inj) 1,000 ml @ 75 mls/hr [id number] IV 12/07/16 17:00 (D50w (Vial) Inj) 25 ml UNSCH PRN IV PUSH 12/07/16 17:15 (Glucagon Inj) 1 mg UNSCH PRN OTHER 12/07/16 17:15 (NovoLIN R SUPPLEMENTAL SCALE) 1 Q6H SQ 12/07/16 18:00 Miscellaneous Information SPECIFIC LAB TO BE ... ONCE ONCE XX 12/10/16 15:45 12/10/16 15:46 Meropenem 500 mg/ Sodium Chloride 100 ml @ 200 mls/hr Q8H IV 12/07/16 21:00 Azithromycin 500 mg/Sodium Chloride 250 ml @ 250 mls/hr Q24H IV 12/07/16 23:00 (Mycamine Inj/NS Inj) 100 ml @ 100 mls/hr Q24H IV 12/07/16 22:00 Family History Mother is alive with Alzheimer's disease, hypertension and thyroid disease Father history of [place] Social History and retired. Chronic long-term smoking for over 40 years. Former alcohol use not currently. Has 2 dogs at home. Patient had a flu shot in 2016 Pneumonia shot in 2013. Physical Exam Vital Signs Vital Signs Date Time Temp Pulse Resp B/P Pulse Ox O2 Delivery O2 Flow Rate FiO2 12/07/16 20:07 101.0 140 28 109/75 93 12/07/16 19:45 93 21 12/07/16 19:00 101.0 133 24 100/78 95 12/07/16 18:30 99.8 113 22 110/70 96 Nasal Cannula 2 12/07/16 18:15 99.2 113 22 110/74 96 Nasal Cannula 2 12/07/16 17:59 98.8 113 20 113/67 95 Nasal Cannula 2 12/07/16 17:45 98.3 132 22 119/76 95 Nasal Cannula 2 12/07/16 17:35 98.8 23 122/85 96 Nasal Cannula 2 12/07/16 17:30 99.0 132 23 127/85 96 Nasal Cannula 2 12/07/16 17:25 98.7 130 25 122/88 95 Nasal Cannula 2 12/07/16 17:20 99.0 137 20 130/82 96 Nasal Cannula 2 12/07/16 16:28 96 Nasal Cannula 2 12/07/16 16:27 92 Room Air 12/07/16 16:06 122 19 141/86 98 Room Air 12/07/16 16:00 100.7 12/07/16 15:37 105 18 137/80 98 Room Air 12/07/16 13:49 97.9 12/07/16 13:37 110 16 117/80 100 12/07/16 12:38 107 18 112/69 100 12/07/16 11:56 104 16 98/61 98 12/07/16 11:32 100 Room Air 12/07/16 11:32 100 Room Air 12/07/16 11:19 107 16 98 Room Air 12/07/16 11:02 108 17 86/63 100 12/07/16 10:46 97.8 116 18 92/63 98 Physical Exam GENERAL: Acutely ill appearing CF patient, in distress secondary to pain, shivering. SKIN: No rashes. Ecchymosis noted. HEAD: Atraumatic. Normocephalic. No temporal or scalp tenderness. EYES: Pupils equal round and reactive. Extraocular motions intact. No scleral icterus. No injection or drainage. ENT: Nose without bleeding, purulent drainage or septal hematoma. Throat without erythema, tonsillar hypertrophy or exudate. Uvula midline. Airway patent. NECK: Trachea midline. Supple, nontender, no meningeal signs. CARDIOVASCULAR: HS audible. RESPIRATORY: Clear to auscultation. Breath sounds equal bilaterally. GASTROINTESTINAL: Abdomen soft, distended, tenderness in left more than right quadrants. ? rebound tenderness in left quadrant. No guarding or rigidity. MUSCULOSKELETAL: Extremities without clubbing, cyanosis, or edema. No joint tenderness, effusion, or edema noted. No calf tenderness. Negative Homans sign bilaterally. NEUROLOGICAL: Lethargic, spoke once as monosyllable, shivering. Neck could not be flexed but patient moved neck side to side. Moves all 4 extremities. Psych: cooperative IV line sites with no e.o infection. Laboratory Laboratory Tests Test 12/07/16 12/07/16 12/07/16 12/07/16 12:25 14:05 14:21 15:06 White Blood Count 71.4 Red Blood Count 2.27 Hemoglobin 6.8 Hematocrit 20.2 Mean Corpuscular Volume 88.8 Mean Corpuscular Hemoglobin 29.8 Mean Corpuscular Hemoglobin 33.6 Concent Red Cell Distribution Width 17.8 Platelet Count 166 Mean Platelet Volume 8.6 Neutrophils (%) (Auto) Lymphocytes (%) (Auto) Monocytes (%) (Auto) Eosinophils (%) (Auto) Basophils (%) (Auto) Neutrophils # (Auto) Lymphocytes # (Auto) Monocytes # (Auto) Eosinophils # (Auto) Basophils # (Auto) CBC Comment AUTO DIFF Differential Total Cells 100 Counted Neutrophils % (Manual) 68 Band Neutrophils % 28 Lymphocytes % 1 Monocytes % 1 Neutrophils # (Manual) 70.0 Metamyelocytes 2 Differential Comment FINAL DIFF MANUAL Toxic Vacuolation PRESENT Platelet Estimate NORMAL Platelet Morphology Comment NORMAL Tear Drop Cells 1+ Virgil Cells 1+ Acanthocytes OCC Keratocytes 1+ Sodium Level 131 Potassium Level 3.6 Chloride Level 101 Carbon Dioxide Level 18.9 Anion Gap 11 Blood Urea Nitrogen 24 Creatinine 1.31 Estimat Glomerular Filtration 43 Rate Random Glucose 83 Lactic Acid Level 1.1 Calcium Level 6.8 Protein Corrected Calcium 7.7 Magnesium Level 1.3 Total Bilirubin 0.3 Aspartate Amino Transf 61 (AST/SGOT) Alanine Aminotransferase 22 (ALT/SGPT) Alkaline Phosphatase 79 Total Protein 5.4 Albumin 2.3 Urine Color LIGHT-YELLOW Urine Turbidity CLEAR Urine pH 5.0 Urine Specific Alder 1.008 Urine Protein TRACE Urine Glucose (UA) NEG Urine Ketones NEG Urine Occult Blood SMALL Urine Nitrite NEG Urine Bilirubin NEG Urine Urobilinogen LESS THAN 2.0 Urine Leukocyte Esterase NEG Urine RBC 1 Urine WBC 3 Urine Squamous Epithelial 1 Cells Urine Bacteria RARE Microscopic Urinalysis Comment CATH-CULTURE IND Blood Type B POSITIVE Antibody Screen NEGATIVE Crossmatch Leukocyte-Reduced Red Blood Cells Blood Bank Comment Date/Time Procedure Status Source Growth 12/07/16 14:05 Urine Culture Received Urine Catheterized Urine Pending 12/07/16 14:05 Legionella Antigen Received Urine Catheterized Urine Pending 12/07/16 14:05 Streptococcus pneumoniae Antigen (M Received Urine Catheterized Urine Pending 12/07/16 11:47 Aerobic Blood Culture Received Blood Peripheral Pending 12/07/16 11:47 Anaerobic Blood Culture Received Blood Peripheral Pending Result Diagram: 12/07/16 1225 12/07/16 1225 Imaging Last Impressions Chest X-Ray 12/07/16 1128 Signed Impressions: Service Date/Time: Wednesday, December 07, 2016 11:51 - CONCLUSION: 1. [id number]-[id number] in good position. 2. Mild interstitial prominence, new from the comparison study. Gurwinder Hernandez MD FACR Head CT 12/07/16 0000 Signed Impressions: Service Date/Time: Wednesday, December 07, 2016 12:10 - CONCLUSION: Negative for acute process.. Gurwinder Hernandez MD FACR Brain MRI 12/07/16 0000 Signed Impressions: Service Date/Time: Wednesday, December 07, 2016 15:03 - CONCLUSION: 1. Negative MRI of the brain. I do not see an etiology for the patient's metastatic disease. 2. I do not see obvious findings of a meningeal carcinomatosis either. Gurwinder Hernandez MD FACR Abdomen/Pelvis CT 12/07/16 0000 Signed Impressions: Service Date/Time: Wednesday, December 07, 2016 16:45 - CONCLUSION: 1. Abnormal lung bases with coarse interstitial changes suggesting fibrosis. 2. Abnormal left kidney. Pyelonephritis cannot be excluded without contrast. 3. The gallbladder appears prominent but unremarkable. 4. I do not see any etiology for the patient's abdominal pain. Gurwinder Hernandez MD FACR Assessment and Plan Assessment and Plan Severe sepsis Sources: Possible pyelonephritis, Possible port infection, possible aspiration pneumonia given the setting of SIADH, ? cdiff (was on chemo) Acute metabolic encephalopathy: ? Sepsis, SIADH. Possible meningitis Acute renal failure likely prerenal or sepsis Immune compromised Small cell lung cancer with metastasis Anemia acute onset. Recommendations: Discussed with Dr. Nunn: Blood cultures from port, broad-spectrum antibiotics, urine legionella antigen as well as urine strep pneumo antigen Repeat lactic acid for sepsis protocol given low bicarbonate. Discontinue Zosyn IV Start meropenem IV(ASP criteria: Immune compromised patient with severe sepsis, possible prior antibiotic usage will de-escalate once cultures back) Continue vancomycin IV target trough 15-20 Start azithromycin IV for possible atypical pneumonia Start Micafungin IV (port related fungemia in IC patient) Start Flagyl IV empiric Cdiff coverage given Chemo, antibiotic exposure, and diffuse abdominal pain with some rebound. CT with no e/o colitis but patient could still have clinical colitis. Discussed with Dr. Gomes about hydration, lactic acid follow-up, urine output. Insert colvin with temp sensor. Avoid rectal examinations or suppositories. Consult hemonc in am. Follow cultures Follow clinically. Will derek oncology team about last neulesta dose to be able to explain high WBC of 71k. Patients family reports last neulasta was approx 3 weeks back this remains to be confirmed. Follow cultures Follow Clinically. derek RN and Dr.Moses Hwang patients family spouse and brother in room. Time in excess of 60 mins. Critical thinking and decision making. Leena Fletcher MD Dec 07, 2016 20:53
--- NOTE | 2016-12-07 20:55 | MB ---
cc: LISA HOFFMANN DATE OF CONSULTATION: 12/07/2016 DATE OF : 1965 REASON FOR CONSULTATION Patient with a history of extensive stage small-cell lung cancer presents with hypotension and altered mental status. CHIEF COMPLAINT The patient is very drowsy. HISTORY OF PRESENT ILLNESS: Ms. Galaviz is a 51-year-old female who has a diagnosis of extensive stage small-cell lung cancer. She has metastatic disease to the liver. She was diagnosed with small-cell lung cancer in September 2016. She had originally presented with hyponatremia and eventually imaging revealed a lung mass. 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 The patient presented to the oncology clinic for chemotherapy treatment yesterday but she was found to be hypotensive. She was given a liter and a half of normal saline with improvement in her blood pressure. She was discharged home with a follow up today in the clinic and for consideration of her chemotherapy treatment, however, she was hypotensive and not feeling very well. She was sent to the emergency department. She was found to have leukocytosis of 71.4. Her hemoglobin was low at 6.8 and platelet count was 166,000. In the emergency department she had a CT scan and MRI of the brain which he did not show any acute abnormality. The patient was found to be hypotensive, however, her lactic acid is non-elevated. She has not had fever. She was found to be in acute renal failure with a creatinine of 1.31. Her baseline is 0.68. She also has LFT elevations with AST of 61 and ALT of 22. The patient is currently in the emergency department and being admitted to the intensive care unit for close monitoring. The patient appears lethargic and weak. REVIEW OF SYSTEMS A comprehensive 14-point review of systems was completed which is negative except as described in HPI. PAST MEDICAL HISTORY 1. Extensive stage small-cell lung cancer. 2. SIADH. 3. Gastroesophageal reflux disease. 4. Hypertension. PAST SURGICAL HISTORY 1. Liver biopsy in 2015. 2. Colonoscopy in 2014. 3. Hysterectomy in 1999. 4. Breast implants in 1992. ALLERGIES: CODEINE LIPITOR MEDICATIONS: 1. Flexeril 2. Gabapentin 3. Lasix 4. Lisinopril These medications have been stopped. Current medications: 1. Cefepime 2. IV vancomycin. FAMILY HISTORY: Reviewed, noncontributory to this admission. SOCIAL HISTORY: More than 50 pack-year smoking history. She quit 3 months ago. No alcohol abuse. No drug use. PHYSICAL EXAMINATION Vital signs: Blood pressure is 113/67, pulse is in the 100s, temperature is 98.8, O2 sats are 95% on two liters nasal cannula. General: Ill-appearing female in mild distress. She is very lethargic. HEENT: Pupils are equal, round, reactive to light. EOMI. No oral thrush. No oral lesions. Neck is supple. No JVD, no bruits. No lymphadenopathy. Chest is clear to auscultation bilaterally. Cardiac: Tachycardiac. S1-S2. Abdomen is soft, nontender, nondistended. Bowel sounds are present. Extremities: Without any edema, erythema or cyanosis. Skin: Without any petechiae lesion or bruises. Neuro: No focal deficits, lethargic, weak. LABORATORY DATA WBC 71.4, hemoglobin 6.8, platelet count 166. Serum chemistries show a sodium 131, potassium 2.6, chloride 101, BUN 24, creatinine 1.31, lactic acid is 1.1, magnesium is 1.3, total bilirubin is 0.3, AST 61, ALT is 22, albumin is 2.3. IMAGING STUDIES Reviewed in the EMR, discussed in the HPI as above. ASSESSMENT/PLAN This is a 51-year-old female with a diagnosis of extensive stage small-cell lung cancer who is currently receiving carboplatin, etoposide. She has metastatic disease to the liver. She presents to the emergency room with hypotension, lethargy and weakness. 1. Hypotension, lethargy, and leukocytosis. We need to rule out any underlying infection. I agree with broad-spectrum antibiotics. She is currently on cefepime and vancomycin. Obtain blood cultures x2. Obtain a UA and blood culture, obtain influenza panel. Aggressive IV hydration. 2. Acute renal failure. I believe this is prerenal. IV hydration as stated above. 3. Severe anemia with hemoglobin of 6.8, I would recommend 2 units of packed red blood cells, premedicate with Tylenol and Benadryl. 4. Hypomagnesemia. Replace magnesium. 5. Abnormal LFTs likely secondary to acute illness. She does have metastatic disease to the liver. 6. Hypoalbuminemia and malnutrition. obtain a receptionist clerk consult. Encourage oral intake, supplement diet with Boost or Ensure t.i.d. with meals. 7. DVT prophylaxis. We should place her on Lovenox 40 subcu daily. Thank you for allowing me to participate in the care of this patient. I will continue to follow this patient along. Further recommendation will be made based on the clinical course of this patient. MD DOMINICK Brown/IFTIKHAR /6:15 PM /8:40 PM MTDD
[2016-12-07] MEDS ORDERED: ASP: Other exception documentation: ( ) XX PRN (21:00)
[2016-12-07] MEDS ORDERED: MISCELLANEOUS PHARMACY INFORMATION XX PRN (21:00)
[2016-12-07] MEDS: metroNIDAZOLE 500 MG INJ 100 ML IV SCH (22:08)
[2016-12-07] MEDS: MICAFUNGIN INJ 150 MG in SODIUM CHLORIDE 0.9% INJ 100 ML IV SCH (22:23)
[2016-12-07 22:54] LABS: AUTOMATED NEUTROPHIL # 61.3 TH/MM3 (1.8-7.7); BASOPHIL # 0.1 TH/MM3 (0-0.2); BASOPHIL % 0.2 % (0.0-2.0); EOSINOPHIL # 0.1 TH/MM3 (0-0.4); EOSINOPHIL % 0.1 % (0.0-4.0); HEMATOCRIT 33.7 % (35.0-46.0); LYMPH % 0.8 % (9.0-44.0); LYMPHOCYTE # 0.5 TH/MM3 (1.0-4.8); MEAN CELL VOLUME 88.2 FL (80.0-100.0); MEAN CORPUSCULAR HGB CONC 34.1 % (32.0-36.0); MONO % 2.2 % (0.0-8.0); NEUT % 96.7 % (16.0-70.0); PLATELET COUNT 110 TH/MM3 (150-450); RED BLOOD COUNT 3.82 MIL/MM3 (4.00-5.30); RED CELL DISTRIBUTION WIDTH 16.4 % (11.6-17.2); WHITE BLOOD COUNT 63.3 TH/MM3 (4.0-11.0)
[2016-12-07] MEDS ORDERED: AZITHROMYCIN INJ 500 MG in SODIUM CHLOR 0.9% 250 ML INJ 250 ML IV SCH (23:00)
[2016-12-07 23:05] LABS: APTT (PATIENT) 37.9 SEC (24.3-30.1); INTERNATIONAL NORMALIZED RATIO 1.3 RATIO; PROTHROMBIN TIME - PATIENT 14.9 SEC (9.8-11.6)
[2016-12-07 23:23] LABS: BICARBONATE 18.4 MEQ/L (21.0-32.0); POTASSIUM 3.3 MEQ/L (3.5-5.1)
[2016-12-07 23:36] LABS: BACTERIA, URINE RARE /hpf; BLOOD, URINE MOD (NEG); GLUCOSE,URINE NEG (NEG); KETONE, URINE NEG (NEG); MUCUS URINE FEW /lpf (OCC); NITRITE,URINE NEG (NEG); URINE COLOR LIGHT-YELLOW (YELLW/STRAW)
[2016-12-07 23:37] LABS: COMMENT (UR) CATH-CULTURE IND; CULTURE IF INDICATED CATH CULTURE IND
[2016-12-07 23:38] LABS: CALCIUM-PROTEIN CORRECTED 8.1 MG/DL (8.5-10.1)
[2016-12-08] VITALS (21 sets, daily range): BP systolic 86–131; BP diastolic 58–91; PULSE 90–144; RESP 15–22; TEMP 98–101.8; O2SAT 92–100
[2016-12-08 00:16] LABS: HEMO FLAGS AUTO DIFF
[2016-12-08 00:17] LABS: BANDS 10 % (0-6); CORRECTED NUCLEATED RBC 1 /100 WBC (0-0); PLATELET ESTIMATE SMEAR LOW (NORMAL); PLATELET MORPHOLOGY NORMAL (NORMAL); POLYS (SEG NEUTROPHILS) 88 % (16-70); SCAN/DIFF FINAL DIFF MANUAL; WBC DIFF SAMPLE 100
[2016-12-08 00:18] LABS: TOXIC VACUOLATION PRESENT (NONE SEEN)
[2016-12-08 00:19] LABS: DOHLE BODIES PRESENT (NONE SEEN)
[2016-12-08 00:20] LABS: BURR CELLS 1+ (NORMAL)
[2016-12-08 00:22] LABS: ACANTHOCYTES 1+ (NORMAL)
[2016-12-08] MEDS ORDERED: POTASSIUM PHOSPHATE MONOBASIC 500 MG TAB PO PRN (01:00)
[2016-12-08] MEDS ORDERED: POTASSIUM CL 40 MEQ/30 ML LIQ UDC PO/TUBE PRN ×2 (01:00)
[2016-12-08] MEDS ORDERED: TERBUTALINE INJ 1 MG/ML AMP SQ PRN (01:00)
[2016-12-08] MEDS ORDERED: MAGNESIUM OXIDE 400 MG TAB PO PRN (01:00)
[2016-12-08] MEDS ORDERED: SODIUM CHLOR 0.9% 1000 ML INJ 1,000 ML IV ONE (01:00)
[2016-12-08] MEDS ORDERED: MAGNESIUM SULFATE INJ 4 GM in SODIUM CHLORIDE 0.9% INJ 92 ML IV PRN (01:00)
[2016-12-08] MEDS ORDERED: POTASSIUM CHLOR 40 MEQ PREMIX 100 ML IV PRN (01:00)
[2016-12-08] MEDS ORDERED: POTASSIUM CHLOR 20 MEQ PREMIX 100 ML IV PRN ×2 (01:00)
[2016-12-08] MEDS ORDERED: POTASSIUM PHOSPHATE MONOBASIC 500 MG TAB PO/TUBE PRN (01:00)
[2016-12-08] MEDS ORDERED: POTASSIUM PHOSPHATE INJ 30 MMOL in SODIUM CHLOR 0.9% 250 ML INJ 250 ML IV PRN (01:00)
[2016-12-08] MEDS ORDERED: SODIUM PHOSPHATE INJ 30 MMOL in SODIUM CHLOR 0.9% 250 ML INJ 240 ML IV PRN (01:00)
[2016-12-08 01:05] LABS: BLOOD GAS BASE EXCESS -8.6 mmol/L (-2-2); BLOOD GAS CARBOXYHEMOGLOBIN 1.5 % (0-4); BLOOD GAS HCO3 16 mmol/L (22-26); BLOOD GAS METHEMOGLOBIN 1.4 % (0-2); BLOOD GAS O2 HGB SATURATION 97 % (90-100); BLOOD GAS OXYGEN CONTENT 14.9 Vol % (12.0-20.0); BLOOD GAS PCO2 31 mmHg (38-42); BLOOD GAS PO2 170 mmHg (61-120); BLOOD GAS TOTAL HGB 10.7 G/DL (12.0-16.0); TEMP CORR TO 98.6
[2016-12-08 01:06] LABS: CRITICAL VALUE YES; DRAW SITE RT RADIAL; FIO2 100 %; NUMBER OF ARTERIAL PUNCTURES 2; OXYGEN DEVICE NONE REBREATHER; STAT YES; ULNAR PULSE PRESENT
[2016-12-08] MEDS: DEXT 5%-NACL 0.9% 1000 ML INJ 1,000 ML IV SCH ×2 (01:40→05:15)
[2016-12-08] MEDS: PHENYLEPHRINE INJ 40 MG in DEXTROSE 5% IN WATE 500 ML INJ 496 ML IV SCH ×2 (01:40)
[2016-12-08] MEDS: MEROPENEM INJ 500 MG in SODIUM CHLORIDE 0.9% INJ 100 ML IV SCH ×3 (01:40→13:00)
[2016-12-08] MEDS: POTASSIUM CHLOR 40 MEQ PREMIX 100 ML IV PRN ×2 (02:18→02:38)
[2016-12-08] MEDS: MAGNESIUM SULFATE INJ 2 GM in SODIUM CHLORIDE 0.9% INJ 96 ML IV PRN (02:37)
[2016-12-08] MEDS ORDERED: ETOMIDATE 20 MG/10 ML VIAL ONE (03:20)
[2016-12-08] MEDS ORDERED: ROCURONIUM INJ 50 MG/5 ML VIAL ONE (03:21)
[2016-12-08] MEDS ORDERED: fentaNYL DRIP 250 ML IV SCH (03:30)
[2016-12-08] MEDS ORDERED: ROCURONIUM INJ 50 MG/5 ML VIAL IV ONE (03:30)
[2016-12-08] MEDS ORDERED: ETOMIDATE 20 MG/10 ML VIAL IV PUSH ONE (03:30)
--- NOTE | 2016-12-08 03:47 | PD.PROCEDR ---
Procedure Note Procedure PROCEDURE NOTE PROCEDURE: Endotracheal intubation INDICATION: Acute respiratory failure, inadequate airway protection. Patient with progressive respiratory distress and decline in mental status necessitating intubation. I updated patient's by telephone and he agrees to intubation. DETAILS OF PROCEDURE: The patient was placed in optimal position and preoxygenated with 100% FiO2 via [id number]. Oximeter oxygen saturation of 90% was obtained prior to direct laryngoscopy with poor waveform. The patient was administered Etomidate 20 mg IV for sedation, rocuronium 50 mg IV. Direct laryngoscopy was performed with a 3 Tiwari laryngoscope blade and a grade II Cormack-Lehane view was obtained. On single attempt a size 7.5 subglottic endotracheal tube was visualized passing through the cords. Correct placement was confirmed with colorimetric CO2 detector. Breath sounds were equal bilaterally. No sounds auscultated over the stomach. The endotracheal tube was secured with a commercial tube solorzano at a depth of 21 cm at the lips. The patient was connected to the ventilator. The patient tolerated the procedure well without any apparent complication. Oxygen saturations were maintained greater than 88% at all times with intermittent waveform. Stat chest x-ray was ordered. Sapna Gomes MD Dec 08, 2016 03:47
[2016-12-08] MEDS: RESP: ALBUTEROL 2.5 MG/IPRATROPIUM 0.5 MG NEB (SCH) INH ×4 (03:51→19:33)
[2016-12-08] MEDS: CHLORHEXIDINE GLUCONATE 2 % 1 PACK (2 CLOTHS) TOP SCH (04:00)
[2016-12-08] MEDS: ACETAMINOPHEN 650 MG/20.3 ML UDC TUBE PRN (04:07)
[2016-12-08 05:57] LABS: BLOOD GAS BASE EXCESS -12.1 mmol/L (-2-2); BLOOD GAS CARBOXYHEMOGLOBIN 0.8 % (0-4); BLOOD GAS HCO3 16 mmol/L (22-26); BLOOD GAS METHEMOGLOBIN 1.5 % (0-2); BLOOD GAS O2 HGB SATURATION 97 % (90-100); BLOOD GAS OXYGEN CONTENT 16.6 Vol % (12.0-20.0); BLOOD GAS PCO2 52 mmHg (38-42); BLOOD GAS PO2 261 mmHg (61-120); BLOOD GAS TOTAL HGB 11.8 G/DL (12.0-16.0); TEMP CORR TO 98.6
[2016-12-08 05:58] LABS: CRITICAL VALUE YES; DRAW SITE RT RADIAL; FIO2 100 %; NUMBER OF ARTERIAL PUNCTURES 1; OXYGEN DEVICE VENTILATOR; STAT YES; ULNAR PULSE PRESENT; VENT SETTINGS AC/14/450/PEEP5
--- NOTE | 2016-12-08 05:59 | RADRPT ---
EXAM DATE/TIME: 12/08/2016 04:03 [facility] COMPARISON: CHEST SINGLE AP, December 07, 2016, 11:51. INDICATIONS : E-T tube placement. MEDICAL HISTORY : Carcinoma, lung. Hypertension Sepsis. SURGICAL HISTORY : Hysterectomy. ENCOUNTER: Subsequent ACUITY: 1 week PAIN SCORE: Non-responsive. LOCATION: Bilateral chest FINDINGS: A single view of the chest demonstrates the endotracheal tube tip at kaitlynn directed towards right ma instem bronchus. Right [id number] in superior vena cava. NG enters stomach. Bilateral airspace con solidation has developed since December 07. Heart size upper limits normal. Small pleural effusions. CONCLUSION: 1. Fairly rapid development of bilateral airspace disease over the last day with small effusions. Dif ferential diagnosis includes edema and infection or aspiration. 2. Endotracheal tube tip is at kaitlynn directed towards the right mainstem bronchus. This should be wi thdrawn about 3 cm. Clem Ingram MD on December 08, 2016 at 5:54 Board Certified Radiologist. This report was verified electronically.
[2016-12-08] MEDS: metroNIDAZOLE 500 MG INJ 100 ML IV SCH ×3 (06:07→22:34)
[2016-12-08] MEDS: INSULIN NovoLIN REGULAR SUPPLEMENTAL SCALE SQ SCH ×4 (06:27→18:00)
[2016-12-08 07:39] LABS: AUTOMATED NEUTROPHIL # 61.1 TH/MM3 (1.8-7.7); BASOPHIL # 0.1 TH/MM3 (0-0.2); BASOPHIL % 0.2 % (0.0-2.0); EOSINOPHIL # 0.4 TH/MM3 (0-0.4); EOSINOPHIL % 0.7 % (0.0-4.0); HEMATOCRIT 33.8 % (35.0-46.0); LYMPH % 0.7 % (9.0-44.0); LYMPHOCYTE # 0.4 TH/MM3 (1.0-4.8); MEAN CELL VOLUME 89.7 FL (80.0-100.0); MEAN CORPUSCULAR HEMOGLOBIN 29.7 PG (27.0-34.0); MEAN CORPUSCULAR HGB CONC 33.2 % (32.0-36.0); MONO % 2.4 % (0.0-8.0); PLATELET COUNT 90 TH/MM3 (150-450); RED BLOOD COUNT 3.77 MIL/MM3 (4.00-5.30); RED CELL DISTRIBUTION WIDTH 17.5 % (11.6-17.2); WHITE BLOOD COUNT 63.6 TH/MM3 (4.0-11.0)
[2016-12-08 07:50] LABS: HEMO FLAGS AUTO DIFF
[2016-12-08 07:56] LABS: ALKALINE PHOSPHATASE 72 U/L (45-117); ALT (GPT) 22 U/L (10-53); ANION GAP 6 MEQ/L (5-15); AST (GOT) 67 U/L (15-37); BICARBONATE 19.3 MEQ/L (21.0-32.0); BLOOD UREA NITROGEN 18 MG/DL (7-18); CHLORIDE 108 MEQ/L (98-107); GLOMERULAR FILTRATION RATE 46 ML/MIN (>89); MAGNESIUM 3.1 MG/DL (1.5-2.5); POTASSIUM 5.7 MEQ/L (3.5-5.1); SODIUM (NA) 133 MEQ/L (136-145); TOTAL BILIRUBIN ADULT 0.6 MG/DL (0.2-1.0)
[2016-12-08] MEDS: CHLORHEXIDINE 0.12% (ORAL KIT) 15 ML CUP MT SCH ×2 (08:00→20:57)
[2016-12-08] MEDS ORDERED: SODIUM BICARBONATE 8.4% INJ 50 MEQ/50 ML SYR ONE (08:10)
[2016-12-08] MEDS ORDERED: SODIUM BICARBONATE 8.4% INJ 50 MEQ/50 ML SYR IV PUSH ONE (08:15)
--- NOTE | 2016-12-08 08:18 | HHI.CCPN ---
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 She presented to [facility] ED with altered mental status, lethargy and fever for the past couple days. Her last chemotherapy was two days ago however when the patient went to receive another session yesterday it was not given due to her condition and instead she was given IV hydration. On arrival to the ED, the patient was tachycardic with a heart rate of 110-120s and initially she was hypotensive with a systolic blood pressure 80s-90s. She also was found to have a temperature of 100.7 rectally. In the ED she was given 2 liter boluses of normal saline with improvement of her blood pressure to 141/ 86. Her laboratory data showed mild acute kidney injury with a creatinine level of 1.31 and hyponatremia with a sodium level of 131. In addition, the patient had significant leukocytosis with a WBC of 71.4 associated with bandemia 28. Also, her hemoglobin was 6.8 with hematocrit of 20.2. Two units of packed RBCs have been ordered by the ED physician. The patient received a Neulasta injection post her chemotherapy. Due to her altered mental status, a CT scan of the brain was obtained which was negative for acute process. The patient also had MRI of the brain which was negative for any metastatic disease. A chest x-ray in the ED showed Infusaport in good position and mild interstitial prominence. The patient received Vancomycin and cefepime in the ED , and a CT scan of the abdomen and pelvis has been ordered. Overall, history is limited as the patient is a poor historian. However, she is not complaining of any pain. 3 Last night patient became tachycardic, hypoxic and worsening mental status she was subsequently intubated and placed on mechanical ventilation. She received additional 2L NS for hypotension and started on Neosyn 50 mics. s/p transfusion 2u PRBC yesterday for Hgb 6.8 her Hgb 11.2 this morning. Objective Vital Signs Date Time Temp Pulse Resp B/P Pulse Ox O2 Delivery O2 Flow Rate FiO2 12/08/16 07:00 120 12/08/16 06:35 93 60 12/08/16 04:00 101.2 15 118/91 12/07/16 21:38 Partial Rebreather 12/07/16 18:30 2 Intake and Output 12/07/16 12/07/16 12/08/16 08:00 16:00 00:00 Intake Total 2507 ml Output Total 1000 ml Balance 1507 ml Result Diagram: 12/08/16 0615 12/08/16 0615 Other Results Laboratory Tests Test 12/07/16 12/07/16 12/07/16 12/07/16 12:25 14:05 14:21 15:06 White Blood Count 71.4 TH/MM3 Red Blood Count 2.27 MIL/MM3 Hemoglobin 6.8 GM/DL Hematocrit 20.2 % Mean Corpuscular Volume 88.8 FL Mean Corpuscular Hemoglobin 29.8 PG Mean Corpuscular Hemoglobin 33.6 % Concent Red Cell Distribution Width 17.8 % Platelet Count 166 TH/MM3 Mean Platelet Volume 8.6 FL Neutrophils (%) (Auto) % Lymphocytes (%) (Auto) % Monocytes (%) (Auto) % Eosinophils (%) (Auto) % Basophils (%) (Auto) % Neutrophils # (Auto) TH/MM3 Lymphocytes # (Auto) TH/MM3 Monocytes # (Auto) TH/MM3 Eosinophils # (Auto) TH/MM3 Basophils # (Auto) TH/MM3 CBC Comment AUTO DIFF Differential Total Cells 100 Counted Neutrophils % (Manual) 68 % Band Neutrophils % 28 % Lymphocytes % 1 % Monocytes % 1 % Neutrophils # (Manual) 70.0 TH/MM3 Metamyelocytes 2 % Differential Comment FINAL DIFF MANUAL Toxic Vacuolation PRESENT Platelet Estimate NORMAL Platelet Morphology Comment NORMAL Tear Drop Cells 1+ [place] Cells 1+ Acanthocytes OCC Keratocytes 1+ Sodium Level 131 MEQ/L Potassium Level 3.6 MEQ/L Chloride Level 101 MEQ/L Carbon Dioxide Level 18.9 MEQ/L Anion Gap 11 MEQ/L Blood Urea Nitrogen 24 MG/DL Creatinine 1.31 MG/DL Estimat Glomerular Filtration 43 ML/MIN Rate Random Glucose 83 MG/DL Lactic Acid Level 1.1 mmol/L Calcium Level 6.8 MG/DL Protein Corrected Calcium 7.7 MG/DL Magnesium Level 1.3 MG/DL Total Bilirubin 0.3 MG/DL Aspartate Amino Transf 61 U/L (AST/SGOT) Alanine Aminotransferase 22 U/L (ALT/SGPT) Alkaline Phosphatase 79 U/L Total Protein 5.4 GM/DL Albumin 2.3 GM/DL Urine Color LIGHT-YELLOW Urine Turbidity CLEAR Urine pH 5.0 Urine Specific [place] 1.008 Urine Protein TRACE mg/dL Urine Glucose (UA) NEG mg/dL Urine Ketones NEG mg/dL Urine Occult Blood SMALL Urine Nitrite NEG Urine Bilirubin NEG Urine Urobilinogen LESS THAN 2.0 MG/DL Urine Leukocyte Esterase NEG Urine RBC 1 /hpf Urine WBC 3 /hpf Urine Squamous Epithelial 1 /hpf Cells Urine Bacteria RARE /hpf Microscopic Urinalysis Comment CATH-CULTURE IND Blood Type B POSITIVE Antibody Screen NEGATIVE Crossmatch Leukocyte-Reduced Red Blood Cells Blood Bank Comment Test 12/07/16 12/07/16 12/07/16 12/08/16 18:45 21:15 22:15 00:53 Nasal Screen MRSA (PCR) NEGATIVE Urine Color LIGHT-YELLOW Urine Turbidity HAZY Urine pH 5.0 Urine Specific [place] 1.013 Urine Protein 30 mg/dL Urine Glucose (UA) NEG mg/dL Urine Ketones NEG mg/dL Urine Occult Blood MOD Urine Nitrite NEG Urine Bilirubin NEG Urine Urobilinogen LESS THAN 2.0 MG/DL Urine Leukocyte Esterase NEG Urine RBC 7 /hpf Urine WBC 4 /hpf Urine Amorphous Sediment OCC Urine Bacteria RARE /hpf Urine Mucus FEW /lpf Microscopic Urinalysis Comment CATH-CULTURE IND Prothrombin Time 14.9 SEC Prothromb Time International 1.3 RATIO Ratio Activated Partial 37.9 SEC Thromboplast Time Lactic Acid Level 1.5 mmol/L White Blood Count 63.3 TH/MM3 Red Blood Count 3.82 MIL/MM3 Hemoglobin 11.5 GM/DL Hematocrit 33.7 % Mean Corpuscular Volume 88.2 FL Mean Corpuscular Hemoglobin 30.0 PG Mean Corpuscular Hemoglobin 34.1 % Concent Red Cell Distribution Width 16.4 % Platelet Count 110 TH/MM3 Mean Platelet Volume 9.7 FL Neutrophils (%) (Auto) 96.7 % Lymphocytes (%) (Auto) 0.8 % Monocytes (%) (Auto) 2.2 % Eosinophils (%) (Auto) 0.1 % Basophils (%) (Auto) 0.2 % Neutrophils # (Auto) 61.3 TH/MM3 Lymphocytes # (Auto) 0.5 TH/MM3 Monocytes # (Auto) 1.4 TH/MM3 Eosinophils # (Auto) 0.1 TH/MM3 Basophils # (Auto) 0.1 TH/MM3 CBC Comment AUTO DIFF Differential Total Cells 100 Counted Neutrophils % (Manual) 88 % Band Neutrophils % 10 % Lymphocytes % 1 % Monocytes % 1 % Neutrophils # (Manual) 62.0 TH/MM3 Nucleated Red Blood Cells 1 /100 WBC Differential Comment FINAL DIFF MANUAL Toxic Vacuolation PRESENT Dohle Bodies PRESENT Platelet Estimate LOW Platelet Morphology Comment NORMAL [place] Cells 1+ Acanthocytes 1+ Sodium Level 133 MEQ/L Potassium Level 3.3 MEQ/L Chloride Level 102 MEQ/L Carbon Dioxide Level 18.4 MEQ/L Anion Gap 13 MEQ/L Blood Urea Nitrogen 20 MG/DL Creatinine 1.11 MG/DL Estimat Glomerular Filtration 52 ML/MIN Rate Random Glucose 97 MG/DL Calcium Level 7.4 MG/DL Protein Corrected Calcium 8.1 MG/DL Phosphorus Level 5.4 MG/DL C-Reactive Protein 22.00 MG/DL Total Protein 5.8 GM/DL Blood Gas Puncture Site RT RADIAL Blood Gas Patient Temperature 98.6 Blood Gas HCO3 16 mmol/L Blood Gas Base Excess -8.6 mmol/L Blood Gas Oxygen Saturation 97 % Arterial Blood pH 7.34 Arterial Blood Partial 31 mmHg Pressure CO2 Arterial Blood Partial 170 mmHg Pressure O2 Arterial Blood Oxygen Content 14.9 Vol % Arterial Blood 1.5 % Carboxyhemoglobin Arterial Blood Methemoglobin 1.4 % Blood Gas Hemoglobin 10.7 G/DL Oxygen Delivery Device NONE REBREATHER Blood Gas Inspired Oxygen 100 % Test 12/08/16 12/08/16 05:16 06:15 Blood Gas Puncture Site RT RADIAL Blood Gas Patient Temperature 98.6 Blood Gas HCO3 16 mmol/L Blood Gas Base Excess -12.1 mmol/L Blood Gas Oxygen Saturation 97 % Arterial Blood pH 7.11 Arterial Blood Partial 52 mmHg Pressure CO2 Arterial Blood Partial 261 mmHg Pressure O2 Arterial Blood Oxygen Content 16.6 Vol % Arterial Blood 0.8 % Carboxyhemoglobin Arterial Blood Methemoglobin 1.5 % Blood Gas Hemoglobin 11.8 G/DL Oxygen Delivery Device VENTILATOR Blood Gas Ventilator Setting AC/14/450/PEEP5 Blood Gas Inspired Oxygen 100 % White Blood Count 63.6 TH/MM3 Red Blood Count 3.77 MIL/MM3 Hemoglobin 11.2 GM/DL Hematocrit 33.8 % Mean Corpuscular Volume 89.7 FL Mean Corpuscular Hemoglobin 29.7 PG Mean Corpuscular Hemoglobin 33.2 % Concent Red Cell Distribution Width 17.5 % Platelet Count 90 TH/MM3 Mean Platelet Volume 10.2 FL Neutrophils (%) (Auto) 96.0 % Lymphocytes (%) (Auto) 0.7 % Monocytes (%) (Auto) 2.4 % Eosinophils (%) (Auto) 0.7 % Basophils (%) (Auto) 0.2 % Neutrophils # (Auto) 61.1 TH/MM3 Lymphocytes # (Auto) 0.4 TH/MM3 Monocytes # (Auto) 1.5 TH/MM3 Eosinophils # (Auto) 0.4 TH/MM3 Basophils # (Auto) 0.1 TH/MM3 CBC Comment AUTO DIFF Sodium Level 133 MEQ/L Potassium Level 5.7 MEQ/L Chloride Level 108 MEQ/L Carbon Dioxide Level 19.3 MEQ/L Anion Gap 6 MEQ/L Blood Urea Nitrogen 18 MG/DL Creatinine 1.23 MG/DL Estimat Glomerular Filtration 46 ML/MIN Rate Random Glucose 195 MG/DL Calcium Level 7.5 MG/DL Phosphorus Level 4.9 MG/DL Magnesium Level 3.1 MG/DL Total Bilirubin 0.6 MG/DL Aspartate Amino Transf 67 U/L (AST/SGOT) Alanine Aminotransferase 22 U/L (ALT/SGPT) Alkaline Phosphatase 72 U/L Total Protein 5.9 GM/DL Albumin 2.2 GM/DL Imaging Last Impressions Chest X-Ray 12/08/16 0000 Signed Impressions: Service Date/Time: December 04:03 - CONCLUSION: 1. Fairly rapid development of bilateral airspace disease over the last day with small effusions. Differential diagnosis includes edema and infection or aspiration. 2. Endotracheal tube tip is at kaitlynn directed towards the right mainstem bronchus. This should be withdrawn about 3 cm. Clem Ingram MD Head CT 12/07/16 0000 Signed Impressions: Service Date/Time: Wednesday, December 07, 2016 12:10 - CONCLUSION: Negative for acute process.. Gurwinder Hernandez MD FACR Brain MRI 12/07/16 0000 Signed Impressions: Service Date/Time: Wednesday, December 07, 2016 15:03 - CONCLUSION: 1. Negative MRI of the brain. I do not see an etiology for the patient's metastatic disease. 2. I do not see obvious findings of a meningeal carcinomatosis either. Gurwinder Hernandez MD FACR Abdomen/Pelvis CT 12/07/16 0000 Signed Impressions: Service Date/Time: Wednesday, December 07, 2016 16:45 - CONCLUSION: 1. Abnormal lung bases with coarse interstitial changes suggesting fibrosis. 2. Abnormal left kidney. Pyelonephritis cannot be excluded without contrast. 3. The gallbladder appears prominent but unremarkable. 4. I do not see any etiology for the patient's abdominal pain. Gurwinder Hernandez MD FACR Objective Remarks GENERAL: Patient is 51 yo critically ill appearing intubated, sedated and on pressors. SKIN: Warm and dry. HEAD: Normocephalic. EYES: No scleral icterus. No injection or drainage. NECK: Supple, trachea midline. No JVD or lymphadenopathy. Orally intubated CARDIOVASCULAR: Regular rate and rhythm without murmurs, gallops, or rubs. RESPIRATORY: Breath sounds equal bilaterally. No accessory muscle use. GASTROINTESTINAL: Abdomen soft, mild tenderness on palpation. MUSCULOSKELETAL: No cyanosis, or edema. Neuro: Sedated, intubated A/P Assessment and Plan 1. VDRF 2. Leukocytosis with bandemia. 3. Rule out aspiration pneumonia. 4. Anemia, thrombocytopenia r/o DIC 5. Acute kidney injury. 6. Encephalopathy 7. Small cell lung cancer status post chemotherapy 8. Chronic hyponatremia. 9. 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 10 Hyperglycemia 11 Elevated AST 12. Hypertension. 13. GERD. 14. History of bronchial asthma. Plan Neuro: On Fentanyl infusion for sedation Monitor neuro status closely and avoid sedatives. CT brain and MRI brain negative for acute process EEG showed b/l front temporal spikes, will place on Keppra 500mg IV Q12, neuro eval. Pulm: Continue with vent support and maintain sats above 92%. Bronchodilators , ICU vent bundle. Increase RR 20, decrease FIO2 40% repeat ABG in 2 hrs. CV: Wean off Neosyn monitor HR and BP and maintain MAP > 65 mmHg. Lactic acid: 1.1. Recheck lactic acid. : Monitor renal function, Is and Os and electrolyte replacement per protocol. Given 4L crystalloids since admission. Change IVF SW+2amps bicarb Q100ml/hr Give amps sodium bicarb and repeat CMP. CT abd/pelvis : Pyelonephritis could not be excluded will get renal US. GI: On Protonix 40 mg IV daily for GI prophylaxis. Start TF-Glucerna 1.5 with goal rate 45ml/hr ID: Continue with abx per ID ( Vanco, Zithromax, Micafungin, Merrem, Flagyl) Strep pneumonia and Legionella urinary antigen negative. Follow up on cxs. Heme: Monitor CBC, coags, s/p transfusion 2 units of PRBC. Heme-Onc is following- Dr. Gama. Check DIC panel. Endo: Sliding scale insulin with Accu-Cheks for glycemic control. GI prophylaxis with Protonix 40 mg daily and DVT prophylaxis with SCDs. Not on chemical anticoagulation prophylaxis due to anemia requiring blood transfusions and thrombocytopenia Lines: Right Infuse A port CCT 30 mins . Ryan Nunn MD Dec 08, 2016 08:18
[2016-12-08] MEDS: PANTOPRAZOLE SODIUM 40 MG VIAL IV SCH (08:26)
[2016-12-08 08:42] LABS: AUTOMATED NEUTROPHIL # 54.1 TH/MM3 (1.8-7.7); BASOPHIL % 0.1 % (0.0-2.0); EOSINOPHIL % 0.1 % (0.0-4.0); HEMATOCRIT 31.7 % (35.0-46.0); LYMPH % 1.3 % (9.0-44.0); LYMPHOCYTE # 0.7 TH/MM3 (1.0-4.8); MEAN CORPUSCULAR HGB CONC 33.7 % (32.0-36.0); MONO % 1.8 % (0.0-8.0); NEUT % 96.7 % (16.0-70.0); PLATELET COUNT 76 TH/MM3 (150-450); RED BLOOD COUNT 3.56 MIL/MM3 (4.00-5.30); RED CELL DISTRIBUTION WIDTH 17.3 % (11.6-17.2); WHITE BLOOD COUNT 55.9 TH/MM3 (4.0-11.0)
[2016-12-08 08:44] LABS: HEMO FLAGS AUTO DIFF
[2016-12-08 08:56] LABS: INTERNATIONAL NORMALIZED RATIO 1.1 RATIO; PROTHROMBIN TIME - PATIENT 12.2 SEC (9.8-11.6)
[2016-12-08 09:02] LABS: CALCIUM-PROTEIN CORRECTED 8.1 MG/DL (8.5-10.1); POTASSIUM 4.7 MEQ/L (3.5-5.1); TOTAL BILIRUBIN ADULT 0.6 MG/DL (0.2-1.0)
[2016-12-08] MEDS: SODIUM BICARBONATE 8.4% INJ 100 MEQ in WATER STERILE FOR INJ 850 ML IV SCH ×2 (09:03→18:09)
[2016-12-08 09:05] LABS: BLOOD GAS BASE EXCESS -12.1 mmol/L (-2-2); BLOOD GAS CARBOXYHEMOGLOBIN 1.2 % (0-4); BLOOD GAS HCO3 15 mmol/L (22-26); BLOOD GAS METHEMOGLOBIN 1.6 % (0-2); BLOOD GAS O2 HGB SATURATION 90 % (90-100); BLOOD GAS OXYGEN CONTENT 13.9 Vol % (12.0-20.0); BLOOD GAS PCO2 43 mmHg (38-42); BLOOD GAS PO2 75 mmHg (61-120); CRITICAL VALUE YES; OXYGEN DEVICE VENTILATOR; TEMP CORR TO 98.6
[2016-12-08 09:06] LABS: DRAW SITE LT RADIAL; FIO2 40 %; NUMBER OF ARTERIAL PUNCTURES 1; STAT NO; ULNAR PULSE PRESENT; VENT SETTINGS A/C 16/500/+5/40
[2016-12-08 09:08] LABS: BANDS 13 % (0-6); NEUTROPHIL # MANUAL DIFF 54.8 TH/MM3 (1.8-7.7); POLYS (SEG NEUTROPHILS) 85 % (16-70); WBC DIFF SAMPLE 100
[2016-12-08 09:09] LABS: BURR CELLS 1+ (NORMAL); PLATELET ESTIMATE SMEAR LOW (NORMAL); PLATELET MORPHOLOGY NORMAL (NORMAL); SCAN/DIFF FINAL DIFF MANUAL; TARGET CELLS 1+ (NORMAL); TOXIC VACUOLATION PRESENT (NONE SEEN)
[2016-12-08 09:27] LABS: BANDS 14 % (0-6); BURR CELLS 1+ (NORMAL); NEUTROPHIL # MANUAL DIFF 62.3 TH/MM3 (1.8-7.7); PLATELET ESTIMATE SMEAR LOW (NORMAL); POLYS (SEG NEUTROPHILS) 84 % (16-70); TARGET CELLS 1+ (NORMAL); WBC DIFF SAMPLE 100
[2016-12-08 09:28] LABS: PLATELET MORPHOLOGY NORMAL (NORMAL); SCAN/DIFF FINAL DIFF MANUAL
[2016-12-08 10:23] LABS: BLOOD GAS BASE EXCESS -5.6 mmol/L (-2-2); BLOOD GAS CARBOXYHEMOGLOBIN 1.5 % (0-4); BLOOD GAS HCO3 19 mmol/L (22-26); BLOOD GAS METHEMOGLOBIN 1.4 % (0-2); BLOOD GAS O2 HGB SATURATION 92 % (90-100); BLOOD GAS PCO2 33 mmHg (38-42); BLOOD GAS PO2 74 mmHg (61-120); BLOOD GAS TOTAL HGB 9.9 G/DL (12.0-16.0); TEMP CORR TO 98.6
[2016-12-08 10:24] LABS: CRITICAL VALUE NO
[2016-12-08 10:25] LABS: DRAW SITE LT RADIAL; FIO2 40 %; NUMBER OF ARTERIAL PUNCTURES 1; OXYGEN DEVICE VENTILATOR; ULNAR PULSE PRESENT; VENT SETTINGS 20/500/40/5PEEP
[2016-12-08 10:26] LABS: STAT NO
--- NOTE | 2016-12-08 11:05 | HHI.IDPN ---
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 Patient undergoes chemotherapy last session on Nov 11 with last dose of Neulesta on Nov 11 (per Oncology). Admitted with severe sepsis. Overnight patient deteriorated needing intubation/ventilator for altered mental status. Also now on pressors Neosyn gtt. Urine output marginal. Na level ok but mentation not at normal per family. Fighting the vent, flexing her neck in restraints. High grade fevers overnight. No rash No diarrhea Antibiotics Meropenem IV Vanco IV Azithro IV Micafungin IV Lines Line sites with no e.o infection Past Medical History reviewed Allergies: Coded Allergies: Lipitor (Verified Adverse Reaction, Severe, Myalgia, 12/07/16) Codeine (Verified Adverse Reaction, Intermediate, Sedation, 12/07/16) Uncoded Allergies: SEASONAL ALLERGIES (Allergy, Mild, 03/13/08) estroven (Adverse Reaction, Intermediate, raised BP, 06/12/15) Objective . Vital Signs Date Time Temp Pulse Resp B/P Pulse Ox O2 Delivery O2 Flow Rate FiO2 12/08/16 10:00 105 12/08/16 08:50 92 40 12/08/16 08:05 96 40 12/08/16 08:00 97 12/08/16 07:00 120 12/08/16 06:35 93 60 12/08/16 06:15 100 50 12/08/16 04:00 101.2 144 15 118/91 100 12/08/16 03:35 100 100 12/08/16 00:00 101.8 135 22 86/58 94 12/07/16 22:24 100.6 143 31 126/81 98 12/07/16 21:38 93 Partial Rebreather 12/07/16 20:07 101.0 140 28 109/75 93 12/07/16 20:00 100 12/07/16 19:45 93 21 12/07/16 19:00 101.0 133 24 100/78 95 12/07/16 18:30 99.8 113 22 110/70 96 Nasal Cannula 2 12/07/16 18:15 99.2 113 22 110/74 96 Nasal Cannula 2 12/07/16 17:59 98.8 113 20 113/67 95 Nasal Cannula 2 12/07/16 17:45 98.3 132 22 119/76 95 Nasal Cannula 2 12/07/16 17:35 98.8 23 122/85 96 Nasal Cannula 2 12/07/16 17:30 99.0 132 23 127/85 96 Nasal Cannula 2 12/07/16 17:25 98.7 130 25 122/88 95 Nasal Cannula 2 12/07/16 17:20 99.0 137 20 130/82 96 Nasal Cannula 2 12/07/16 16:28 96 Nasal Cannula 2 12/07/16 16:27 92 Room Air 12/07/16 16:06 122 19 141/86 98 Room Air 12/07/16 16:00 100.7 12/07/16 15:37 105 18 137/80 98 Room Air 12/07/16 13:49 97.9 12/07/16 13:37 110 16 117/80 100 12/07/16 12:38 107 18 112/69 100 12/07/16 11:56 104 16 98/61 98 12/07/16 11:32 100 Room Air 12/07/16 11:32 100 Room Air 12/07/16 11:19 107 16 98 Room Air 12/07/16 12/07/16 12/08/16 15:00 23:00 07:00 Intake Total 2507 ml 2486 ml Output Total 1000 ml 400 ml Balance 1507 ml 2086 ml Intake IV Total 1507 ml 2486 ml Packed Cells 1000 ml Output Urine Total 1000 ml 400 ml # Voids 1 # Bowel Movements 1 . Laboratory Tests Test 12/07/16 12/07/16 12/08/16 12/08/16 12:25 22:15 06:15 08:22 White Blood Count 71.4 TH/MM3 63.3 TH/MM3 63.6 TH/MM3 55.9 TH/MM3 Red Blood Count 2.27 MIL/MM3 3.82 MIL/MM3 3.77 MIL/MM3 3.56 MIL/MM3 Hemoglobin 6.8 GM/DL 11.5 GM/DL 11.2 GM/DL 10.7 GM/DL Hematocrit 20.2 % 33.7 % 33.8 % 31.7 % Mean Corpuscular Volume 88.8 FL 88.2 FL 89.7 FL 89.0 FL Mean Corpuscular Hemoglobin 29.8 PG 30.0 PG 29.7 PG 30.0 PG Mean Corpuscular Hemoglobin 33.6 % 34.1 % 33.2 % 33.7 % Concent Red Cell Distribution Width 17.8 % 16.4 % 17.5 % 17.3 % Platelet Count 166 TH/MM3 110 TH/MM3 90 TH/MM3 76 TH/MM3 Mean Platelet Volume 8.6 FL 9.7 FL 10.2 FL 10.1 FL Neutrophils (%) (Auto) % 96.7 % 96.0 % 96.7 % Lymphocytes (%) (Auto) % 0.8 % 0.7 % 1.3 % Monocytes (%) (Auto) % 2.2 % 2.4 % 1.8 % Eosinophils (%) (Auto) % 0.1 % 0.7 % 0.1 % Basophils (%) (Auto) % 0.2 % 0.2 % 0.1 % Neutrophils # (Auto) TH/MM3 61.3 TH/MM3 61.1 TH/MM3 54.1 TH/MM3 Lymphocytes # (Auto) TH/MM3 0.5 TH/MM3 0.4 TH/MM3 0.7 TH/MM3 Monocytes # (Auto) TH/MM3 1.4 TH/MM3 1.5 TH/MM3 1.0 TH/MM3 Eosinophils # (Auto) TH/MM3 0.1 TH/MM3 0.4 TH/MM3 0.0 TH/MM3 Basophils # (Auto) TH/MM3 0.1 TH/MM3 0.1 TH/MM3 0.0 TH/MM3 CBC Comment AUTO DIFF AUTO DIFF AUTO DIFF AUTO DIFF Differential Total Cells 100 100 100 100 Counted Neutrophils % (Manual) 68 % 88 % 84 % 85 % Band Neutrophils % 28 % 10 % 14 % 13 % Lymphocytes % 1 % 1 % 2 % 1 % Monocytes % 1 % 1 % 1 % Neutrophils # (Manual) 70.0 TH/MM3 62.0 TH/MM3 62.3 TH/MM3 54.8 TH/MM3 Metamyelocytes 2 % Differential Comment FINAL DIFF FINAL DIFF FINAL DIFF FINAL DIFF MANUAL MANUAL MANUAL MANUAL Toxic Vacuolation PRESENT PRESENT PRESENT Platelet Estimate NORMAL LOW LOW LOW Platelet Morphology Comment NORMAL NORMAL NORMAL NORMAL Tear Drop Cells 1+ Portage Cells 1+ 1+ 1+ 1+ Acanthocytes OCC 1+ Keratocytes 1+ Nucleated Red Blood Cells 1 /100 WBC Dohle Bodies PRESENT Target Cells 1+ 1+ Laboratory Tests Test 3/1/17 12/07/16 12/08/16 12/08/16 12:25 22:15 06:15 08:22 Sodium Level 131 MEQ/L 133 MEQ/L 133 MEQ/L 136 MEQ/L Potassium Level 3.6 MEQ/L 3.3 MEQ/L 5.7 MEQ/L 4.7 MEQ/L Chloride Level 101 MEQ/L 102 MEQ/L 108 MEQ/L 110 MEQ/L Carbon Dioxide Level 18.9 MEQ/L 18.4 MEQ/L 19.3 MEQ/L 18.0 MEQ/L Anion Gap 11 MEQ/L 13 MEQ/L 6 MEQ/L 8 MEQ/L Blood Urea Nitrogen 24 MG/DL 20 MG/DL 18 MG/DL 16 MG/DL Creatinine 1.31 MG/DL 1.11 MG/DL 1.23 MG/DL 1.14 MG/DL Estimat Glomerular Filtration 43 ML/MIN 52 ML/MIN 46 ML/MIN 50 ML/MIN Rate Random Glucose 83 MG/DL 97 MG/DL 195 MG/DL 166 MG/DL Lactic Acid Level 1.1 mmol/L 1.5 mmol/L 1.8 mmol/L Calcium Level 6.8 MG/DL 7.4 MG/DL 7.5 MG/DL 7.3 MG/DL Protein Corrected Calcium 7.7 MG/DL 8.1 MG/DL 8.1 MG/DL Magnesium Level 1.3 MG/DL 3.1 MG/DL Total Bilirubin 0.3 MG/DL 0.6 MG/DL 0.6 MG/DL Aspartate Amino Transf 61 U/L 67 U/L 65 U/L (AST/SGOT) Alanine Aminotransferase 22 U/L 22 U/L 23 U/L (ALT/SGPT) Alkaline Phosphatase 79 U/L 72 U/L 74 U/L Total Protein 5.4 GM/DL 5.8 GM/DL 5.9 GM/DL 5.6 GM/DL Albumin 2.3 GM/DL 2.2 GM/DL 2.1 GM/DL Phosphorus Level 5.4 MG/DL 4.9 MG/DL C-Reactive Protein 22.00 MG/DL Microbiology Date/Time Procedure Status Source Growth 12/07/16 11:37 Aerobic Blood Culture Received Blood Peripheral Pending 12/07/16 11:37 Anaerobic Blood Culture Received Blood Peripheral Pending 12/07/16 11:47 Aerobic Blood Culture Received Blood Peripheral Pending 12/07/16 11:47 Anaerobic Blood Culture Received Blood Peripheral Pending 12/07/16 14:05 Urine Culture Received Urine Catheterized Urine Pending 12/07/16 14:05 Legionella Antigen - Final Complete Urine Catheterized Urine PRESUMPTIVE NEGATIVE FOR LEGIONELLA P... 12/07/16 14:05 Streptococcus pneumoniae Antigen (M - Final Complete Urine Catheterized Urine PRESUMPTIVE NEGATIVE FOR STREPTOCOCCU... 12/07/16 21:15 Urine Culture Received Urine Catheterized Urine Pending Imaging Last Impressions Chest X-Ray 12/08/16 0000 Signed Impressions: Service Date/Time: December 04:03 - CONCLUSION: 1. Fairly rapid development of bilateral airspace disease over the last day with small effusions. Differential diagnosis includes edema and infection or aspiration. 2. Endotracheal tube tip is at kaitlynn directed towards the right mainstem bronchus. This should be withdrawn about 3 cm. Clem Ingram MD Head CT 12/07/16 0000 Signed Impressions: Service Date/Time: Wednesday, December 07, 2016 12:10 - CONCLUSION: Negative for acute process.. Gurwinder Hernandez MD FACR Brain MRI 12/07/16 0000 Signed Impressions: Service Date/Time: Wednesday, December 07, 2016 15:03 - CONCLUSION: 1. Negative MRI of the brain. I do not see an etiology for the patient's metastatic disease. 2. I do not see obvious findings of a meningeal carcinomatosis either. Gurwinder Hernandez MD FACR Abdomen/Pelvis CT 12/07/16 0000 Signed Impressions: Service Date/Time: Wednesday, December 07, 2016 16:45 - CONCLUSION: 1. Abnormal lung bases with coarse interstitial changes suggesting fibrosis. 2. Abnormal left kidney. Pyelonephritis cannot be excluded without contrast. 3. The gallbladder appears prominent but unremarkable. 4. I do not see any etiology for the patient's abdominal pain. Gurwinder Hernandez MD FACR Physical Exam GENERAL: Acutely ill appearing CF patient. SKIN: No rashes. Ecchymosis noted. HEAD: Atraumatic. Normocephalic. No temporal or scalp tenderness. EYES: Pupils equal round and reactive. Extraocular motions intact. No scleral icterus. No injection or drainage. ENT: Nose without bleeding, purulent drainage or septal hematoma. Throat without erythema, tonsillar hypertrophy or exudate. Uvula midline. Airway patent. NECK: Trachea midline. Supple, nontender, no meningeal signs. CARDIOVASCULAR: HS audible. RESPIRATORY: Clear to auscultation. Breath sounds equal bilaterally. GASTROINTESTINAL: Abdomen soft, distended, tenderness in left more than right quadrants. ? rebound tenderness in left quadrant. No guarding or rigidity. MUSCULOSKELETAL: Extremities without clubbing, cyanosis, or edema. No joint tenderness, effusion, or edema noted. No calf tenderness. Negative Homans sign bilaterally. NEUROLOGICAL: Sedated, opens eyes spontaneously, tries to fight vent, flexes her neck, moves all 4 extremities. Psych: could not be assessed. IV line sites with no e.o infection. Port site with no e/o infection Assessment & Plan Remarks Septic Shock with Multiorgan dysfunction syndrome (MODS) Sources: Likely UTI with pyelonephritis, Possible port infection, Aspiration pneumonia possible CAP. Acute metabolic encephalopathy: ? Sepsis, SIADH. Possible meningitis Acute renal failure likely prerenal or sepsis Immune compromised Small cell lung cancer with metastasis Anemia acute onset. Recommendations: Continue meropenem IV(ASP criteria: Immune compromised patient with severe sepsis, possible prior antibiotic usage will de-escalate once cultures back) Continue vancomycin IV target trough 15-20 Continue azithromycin IV for possible atypical pneumonia Continue Micafungin IV (port related fungemia in IC patient) Continue Flagyl IV empiric Cdiff coverage given Chemo, antibiotic exposure, and diffuse abdominal pain with some rebound. CT with no e/o colitis but patient could still have clinical colitis. US KUB If Cr and UO improve and no source found or UTI will consider CT with contrast stone protocol and Urology consult. Rober.trino Family would like to avoid LP, clinically low probability of Meningitis but will follow clinically and reassess. Given her low platelets would like to avoid LP. Follow cultures Follow clinically. derek RN and Dr.Iskandar Hwang patients brother in room. Time in excess of 40 mins. Critical thinking and decision making. Leena Fletcher MD Dec 08, 2016 11:05
[2016-12-08] MEDS ORDERED: LORazepam 2 MG/ML VIAL ONE (12:27)
--- NOTE | 2016-12-08 12:40 | PD.ONC.PN ---
Subjective Subjective Remarks Afebrile. Patient intubated, sedated, on pressor support. Objective Data Date Time Temp Pulse Resp B/P Pulse Ox O2 Delivery O2 Flow Rate FiO2 12/08/16 11:42 99 40 12/08/16 10:00 105 12/08/16 08:50 92 40 12/08/16 08:05 96 40 12/08/16 08:00 98.3 116 16 109/79 99 12/08/16 08:00 97 12/08/16 07:00 120 12/08/16 06:35 93 60 12/08/16 06:15 100 50 12/08/16 04:00 101.2 144 15 118/91 100 12/08/16 03:35 100 100 12/08/16 00:00 101.8 135 22 86/58 94 12/07/16 22:24 100.6 143 31 126/81 98 12/07/16 21:38 93 Partial Rebreather 12/07/16 20:07 101.0 140 28 109/75 93 12/07/16 20:00 100 12/07/16 19:45 93 21 12/07/16 19:00 101.0 133 24 100/78 95 12/07/16 18:30 99.8 113 22 110/70 96 Nasal Cannula 2 12/07/16 18:15 99.2 113 22 110/74 96 Nasal Cannula 2 12/07/16 17:59 98.8 113 20 113/67 95 Nasal Cannula 2 12/07/16 17:45 98.3 132 22 119/76 95 Nasal Cannula 2 12/07/16 17:35 98.8 23 122/85 96 Nasal Cannula 2 12/07/16 17:30 99.0 132 23 127/85 96 Nasal Cannula 2 12/07/16 17:25 98.7 130 25 122/88 95 Nasal Cannula 2 12/07/16 17:20 99.0 137 20 130/82 96 Nasal Cannula 2 12/07/16 16:28 96 Nasal Cannula 2 12/07/16 16:27 92 Room Air 12/07/16 16:06 122 19 141/86 98 Room Air 12/07/16 16:00 100.7 12/07/16 15:37 105 18 137/80 98 Room Air 12/07/16 13:49 97.9 12/07/16 13:37 110 16 117/80 100 12/07/16 12:38 107 18 112/69 100 Result Diagram: 12/08/16 0822 12/08/16 0822 Laboratory Results Laboratory Tests Test 12/07/16 12/07/16 12/07/16 12/07/16 14:05 14:21 15:06 18:45 Urine Color LIGHT-YELLOW Urine Turbidity CLEAR Urine pH 5.0 Urine Specific [place] 1.008 Urine Protein TRACE mg/dL Urine Glucose (UA) NEG mg/dL Urine Ketones NEG mg/dL Urine Occult Blood SMALL Urine Nitrite NEG Urine Bilirubin NEG Urine Urobilinogen LESS THAN 2.0 MG/DL Urine Leukocyte Esterase NEG Urine RBC 1 /hpf Urine WBC 3 /hpf Urine Squamous Epithelial 1 /hpf Cells Urine Bacteria RARE /hpf Microscopic Urinalysis Comment CATH-CULTURE IND Blood Type B POSITIVE Antibody Screen NEGATIVE Crossmatch Leukocyte-Reduced Red Blood Cells Blood Bank Comment Nasal Screen MRSA (PCR) NEGATIVE Test 12/07/16 12/07/16 12/08/16 12/08/16 21:15 22:15 00:53 05:16 Urine Color LIGHT-YELLOW Urine Turbidity HAZY Urine pH 5.0 Urine Specific [place] 1.013 Urine Protein 30 mg/dL Urine Glucose (UA) NEG mg/dL Urine Ketones NEG mg/dL Urine Occult Blood MOD Urine Nitrite NEG Urine Bilirubin NEG Urine Urobilinogen LESS THAN 2.0 MG/DL Urine Leukocyte Esterase NEG Urine RBC 7 /hpf Urine WBC 4 /hpf Urine Amorphous Sediment OCC Urine Bacteria RARE /hpf Urine Mucus FEW /lpf Microscopic Urinalysis Comment CATH-CULTURE IND Prothrombin Time 14.9 SEC Prothromb Time International 1.3 RATIO Ratio Activated Partial 37.9 SEC Thromboplast Time Lactic Acid Level 1.5 mmol/L White Blood Count 63.3 TH/MM3 Red Blood Count 3.82 MIL/MM3 Hemoglobin 11.5 GM/DL Hematocrit 33.7 % Mean Corpuscular Volume 88.2 FL Mean Corpuscular Hemoglobin 30.0 PG Mean Corpuscular Hemoglobin 34.1 % Concent Red Cell Distribution Width 16.4 % Platelet Count 110 TH/MM3 Mean Platelet Volume 9.7 FL Neutrophils (%) (Auto) 96.7 % Lymphocytes (%) (Auto) 0.8 % Monocytes (%) (Auto) 2.2 % Eosinophils (%) (Auto) 0.1 % Basophils (%) (Auto) 0.2 % Neutrophils # (Auto) 61.3 TH/MM3 Lymphocytes # (Auto) 0.5 TH/MM3 Monocytes # (Auto) 1.4 TH/MM3 Eosinophils # (Auto) 0.1 TH/MM3 Basophils # (Auto) 0.1 TH/MM3 CBC Comment AUTO DIFF Differential Total Cells 100 Counted Neutrophils % (Manual) 88 % Band Neutrophils % 10 % Lymphocytes % 1 % Monocytes % 1 % Neutrophils # (Manual) 62.0 TH/MM3 Nucleated Red Blood Cells 1 /100 WBC Differential Comment FINAL DIFF MANUAL Toxic Vacuolation PRESENT Dohle Bodies PRESENT Platelet Estimate LOW Platelet Morphology Comment NORMAL Treadwell Cells 1+ Acanthocytes 1+ Sodium Level 133 MEQ/L Potassium Level 3.3 MEQ/L Chloride Level 102 MEQ/L Carbon Dioxide Level 18.4 MEQ/L Anion Gap 13 MEQ/L Blood Urea Nitrogen 20 MG/DL Creatinine 1.11 MG/DL Estimat Glomerular Filtration 52 ML/MIN Rate Random Glucose 97 MG/DL Calcium Level 7.4 MG/DL Protein Corrected Calcium 8.1 MG/DL Phosphorus Level 5.4 MG/DL C-Reactive Protein 22.00 MG/DL Total Protein 5.8 GM/DL Blood Gas Puncture Site RT RADIAL RT RADIAL Blood Gas Patient Temperature 98.6 98.6 Blood Gas HCO3 16 mmol/L 16 mmol/L Blood Gas Base Excess -8.6 mmol/L -12.1 mmol/L Blood Gas Oxygen Saturation 97 % 97 % Arterial Blood pH 7.34 7.11 Arterial Blood Partial 31 mmHg 52 mmHg Pressure CO2 Arterial Blood Partial 170 mmHg 261 mmHg Pressure O2 Arterial Blood Oxygen Content 14.9 Vol % 16.6 Vol % Arterial Blood 1.5 % 0.8 % Carboxyhemoglobin Arterial Blood Methemoglobin 1.4 % 1.5 % Blood Gas Hemoglobin 10.7 G/DL 11.8 G/DL Oxygen Delivery Device NONE VENTILATOR REBREATHER Blood Gas Inspired Oxygen 100 % 100 % Blood Gas Ventilator Setting AC/14/450/PEEP5 Test 12/08/16 12/08/16 12/08/16 12/08/16 06:15 07:32 08:22 10:07 White Blood Count 63.6 TH/MM3 55.9 TH/MM3 Red Blood Count 3.77 MIL/MM3 3.56 MIL/MM3 Hemoglobin 11.2 GM/DL 10.7 GM/DL Hematocrit 33.8 % 31.7 % Mean Corpuscular Volume 89.7 FL 89.0 FL Mean Corpuscular Hemoglobin 29.7 PG 30.0 PG Mean Corpuscular Hemoglobin 33.2 % 33.7 % Concent Red Cell Distribution Width 17.5 % 17.3 % Platelet Count 90 TH/MM3 76 TH/MM3 Mean Platelet Volume 10.2 FL 10.1 FL Neutrophils (%) (Auto) 96.0 % 96.7 % Lymphocytes (%) (Auto) 0.7 % 1.3 % Monocytes (%) (Auto) 2.4 % 1.8 % Eosinophils (%) (Auto) 0.7 % 0.1 % Basophils (%) (Auto) 0.2 % 0.1 % Neutrophils # (Auto) 61.1 TH/MM3 54.1 TH/MM3 Lymphocytes # (Auto) 0.4 TH/MM3 0.7 TH/MM3 Monocytes # (Auto) 1.5 TH/MM3 1.0 TH/MM3 Eosinophils # (Auto) 0.4 TH/MM3 0.0 TH/MM3 Basophils # (Auto) 0.1 TH/MM3 0.0 TH/MM3 CBC Comment AUTO DIFF AUTO DIFF Differential Total Cells 100 100 Counted Neutrophils % (Manual) 84 % 85 % Band Neutrophils % 14 % 13 % Lymphocytes % 2 % 1 % Neutrophils # (Manual) 62.3 TH/MM3 54.8 TH/MM3 Differential Comment FINAL DIFF FINAL DIFF MANUAL MANUAL Platelet Estimate LOW LOW Platelet Morphology Comment NORMAL NORMAL Target Cells 1+ 1+ Virgil Cells 1+ 1+ Sodium Level 133 MEQ/L 136 MEQ/L Potassium Level 5.7 MEQ/L 4.7 MEQ/L Chloride Level 108 MEQ/L 110 MEQ/L Carbon Dioxide Level 19.3 MEQ/L 18.0 MEQ/L Anion Gap 6 MEQ/L 8 MEQ/L Blood Urea Nitrogen 18 MG/DL 16 MG/DL Creatinine 1.23 MG/DL 1.14 MG/DL Estimat Glomerular Filtration 46 ML/MIN 50 ML/MIN Rate Random Glucose 195 MG/DL 166 MG/DL Calcium Level 7.5 MG/DL 7.3 MG/DL Phosphorus Level 4.9 MG/DL Magnesium Level 3.1 MG/DL Total Bilirubin 0.6 MG/DL 0.6 MG/DL Aspartate Amino Transf 67 U/L 65 U/L (AST/SGOT) Alanine Aminotransferase 22 U/L 23 U/L (ALT/SGPT) Alkaline Phosphatase 72 U/L 74 U/L Total Protein 5.9 GM/DL 5.6 GM/DL Albumin 2.2 GM/DL 2.1 GM/DL Blood Gas Puncture Site LT RADIAL LT RADIAL Blood Gas Patient Temperature 98.6 98.6 Blood Gas HCO3 15 mmol/L 19 mmol/L Blood Gas Base Excess -12.1 mmol/L -5.6 mmol/L Blood Gas Oxygen Saturation 90 % 92 % Arterial Blood pH 7.16 7.37 Arterial Blood Partial 43 mmHg 33 mmHg Pressure CO2 Arterial Blood Partial 75 mmHg 74 mmHg Pressure O2 Arterial Blood Oxygen Content 13.9 Vol % 13.0 Vol % Arterial Blood 1.2 % 1.5 % Carboxyhemoglobin Arterial Blood Methemoglobin 1.6 % 1.4 % Blood Gas Hemoglobin 11.0 G/DL 9.9 G/DL Oxygen Delivery Device VENTILATOR VENTILATOR Blood Gas Ventilator Setting A/C 20/500/40/5PEEP 16/500/+5/40 Blood Gas Inspired Oxygen 40 % 40 % Monocytes % 1 % Toxic Vacuolation PRESENT Prothrombin Time 12.2 SEC Prothromb Time International 1.1 RATIO Ratio Fibrinogen 489 mg/dL Lactic Acid Level 1.8 mmol/L Protein Corrected Calcium 8.1 MG/DL Culture Results Microbiology Date/Time Procedure Status Source Growth 12/07/16 11:37 Aerobic Blood Culture - Preliminary Resulted Blood Peripheral NO GROWTH IN 1 DAY 12/07/16 11:37 Anaerobic Blood Culture - Preliminary Resulted Blood Peripheral NO GROWTH IN 1 DAY 12/07/16 11:47 Aerobic Blood Culture - Preliminary Resulted Blood Peripheral NO GROWTH IN 1 DAY 12/07/16 11:47 Anaerobic Blood Culture - Preliminary Resulted Blood Peripheral NO GROWTH IN 1 DAY 12/07/16 14:05 Urine Culture Received Urine Catheterized Urine Pending 12/07/16 14:05 Legionella Antigen - Final Complete Urine Catheterized Urine PRESUMPTIVE NEGATIVE FOR LEGIONELLA P... 12/07/16 14:05 Streptococcus pneumoniae Antigen (M - Final Complete Urine Catheterized Urine PRESUMPTIVE NEGATIVE FOR STREPTOCOCCU... 12/07/16 21:15 Urine Culture Received Urine Catheterized Urine Pending Imaging Studies Last 24 hours Impressions Chest X-Ray 12/08/16 0000 Signed Impressions: Service Date/Time: December 04:03 - CONCLUSION: 1. Fairly rapid development of bilateral airspace disease over the last day with small effusions. Differential diagnosis includes edema and infection or aspiration. 2. Endotracheal tube tip is at kaitlynn directed towards the right mainstem bronchus. This should be withdrawn about 3 cm. Clem Ingram MD Administered Medications Medications (Trade) Dose Ordered Sig/Ermias Route PRN Reason Start Time Stop Time Status Last Admin Dose Admin Pantoprazole Sodium (Protonix Inj) 40 mg DAILY IV 12/07/16 16:15 12/08/16 08:26 Chlorhexidine Gluconate (Chlorhexidine 2% Cloth) 3 pack Taper DAILY@04 TOP 12/08/16 04:00 12/04/17 03:59 12/08/16 04:00 Insulin Human Regular 1 1 Q6H SQ 12/07/16 18:00 12/08/16 06:27 Meropenem 500 mg/ Sodium Chloride 100 ml @ 200 mls/hr Q8H IV 12/07/16 21:00 12/08/16 06:07 Azithromycin 500 mg/Sodium Chloride 250 ml @ 250 mls/hr Q24H IV 12/07/16 23:00 12/07/16 22:08 Micafungin Sodium 150 mg/Sodium Chloride 100 ml @ 100 mls/hr Q24H IV 12/07/16 22:00 12/07/16 22:23 Metronidazole (Flagyl 500 Mg Inj) 100 ml @ 100 mls/hr Q8H IV 12/07/16 22:00 12/08/16 06:07 Fentanyl Citrate 50 mcg 50 mcg Q1H PRN IV PUSH PAIN 5-10 12/07/16 21:45 12/08/16 02:00 Phenylephrine HCl 40 mg/Dextrose 500 ml @ 0 mls/hr TITRATE IV 12/08/16 02:00 12/08/16 01:40 Potassium Chloride 100 ml @ 50 mls/hr Q2H PRN IV For Potassium 2.8 - 3.2 mEq/L 12/08/16 01:00 12/08/16 02:38 Magnesium Sulfate/ Sodium Chloride (Magnesium Sulfate Inj/NS Inj) 100 ml @ 50 mls/hr UNSCH PRN IV For Magnesium 1.2 - 1.6 mg/dL 12/08/16 01:00 12/08/16 02:37 Acetaminophen (Tylenol 650 Mg/ 20 ml Liq) 650 mg Q4H PRN TUBE TEMP >101 12/08/16 03:30 12/08/16 04:07 Chlorhexidine Gluconate 15 ml 15 ml BID@08,20 MT 12/08/16 08:00 12/08/16 08:00 Sodium Bicarbonate/ Sterile Water (Sodium Bicarbonate 8.4% Inj/Sterile Water For Inj) 950 ml @ 100 mls/hr Q9H30M IV 12/08/16 08:45 12/08/16 09:03 Objective Remarks GENERAL: Supine female, intubated, sedated. SKIN: Warm and dry. HEAD: Normocephalic. EYES: No injection or drainage. NECK: Supple, trachea midline. CARDIOVASCULAR: +S1/S2 RESPIRATORY: anterior butler clear. on mechanical ventilation. GASTROINTESTINAL: Abdomen soft, nondistended. EXTREMITIES: No cyanosis NEUROLOGICAL: intubated, sedated Assessment/Plan Problem List: (1) Sepsis Status: Acute Plan: --BC no growth --on multiple abx as above, per ID. --U/A neg --CXR: shows bilateral airspace disease. last Neulasta shot was given on 11/16. (2) SCLC (small cell lung carcinoma) Status: Acute Plan: --s/p Carboplatin/AUTO BODY MAN 16, last chemo given in early November (3) Normocytic anemia Status: Acute Plan: --transfuse as needed --monitor for bleeding (4) Thrombocytopenia Status: Acute Plan: --likely consumptive due to acute illness. (5) Acute renal failure Status: Acute Plan: --on IVF (6) Elevated LFTs Status: Acute Plan: --Abnormal LFTs likely secondary to acute illness. ++does have metastatic disease to the liver. Assessment 51y/o admitted with hypotension, lethargy, leukocytosis, now critically ill in C, intubated and on pressor support h/o metastatic SCLC Plan 1. continue antibiotics, supportive care 2. monitor CBC 3. monitor coags Attending Statement 1. Sepsis/Hypotension/lethargy, and leukocytosis. - continue IV abx - follow Blood cx - R/O meningitis. LP done 2. Acute Respiratory failure on ventilator - would recommend a CTA to r/o PE when feasible. Check D-dimers. - will consider anticoagulation if d-dimers elevated 3. Acute renal failure. prerenal. improving with IV hydration 4. Acute anemia s/p 2 units of pRBC 5. Electrolyte abnormalities: check Mag/Phos and CMP in AM 6. Abnormal LFTs likely secondary to acute illness. some improvement - check coags and fibrinogen in am D/W Dr. Ortiz D/w family Problem Qualifiers (1) Sepsis: Qualified Code: A41.9 - Sepsis, due to unspecified organism Johanna Orozco Dec 08, 2016 12:40 Aakash Gama MD Dec 08, 2016 21:57
[2016-12-08] MEDS ORDERED: levETIRAcetam INJ 500 MG in SODIUM CHLORIDE 0.9% INJ 100 ML IV SCH (15:00)
--- NOTE | 2016-12-08 15:41 | RADRPT ---
EXAM DATE/TIME: 12/08/2016 14:46 [facility] COMPARISON: No previous studies available for comparison. INDICATIONS : Bilateral leg pain. MEDICAL HISTORY : Carcinoma, lung. Hypertension. Sepsis. Currently on chemotherapy for lung cancer. SURGICAL HISTORY : Tubal ligation. Hysterectomy. ENCOUNTER: Initial ACUITY: 1 day PAIN SCORE: Non-responsive LOCATION: Bilateral leg. TECHNIQUE: Venous ultrasound of the left and right leg was performed from the inguinal ligament to the proximal calf. Real-time, color Doppler and spectral tracing, compression and augmentation techniques were us ed. FINDINGS: RIGHT LEG: There is normal compressibility of the deep venous system from the inguinal region to the proximal ca lf. No echogenic clot is seen in the lumen of the common femoral, femoral, popliteal, and posterior tibial veins. There is a normal response of the venous system to proximal and distal augmentation an d respiration. LEFT LEG: There is normal compressibility of the deep venous system from the inguinal region to the proximal ca lf. No echogenic clot is seen in the lumen of the common femoral, femoral, popliteal, and posterior tibial veins. There is a normal response of the venous system to proximal and distal augmentation an d respiration. CONCLUSION: Normal examination. Jamel Stevenson MD on December 08, 2016 at 15:39 Board Certified Radiologist. This report was verified electronically.
--- NOTE | 2016-12-08 15:51 | HHI.PR ---
Addendum to Inpatient Note Addendum Reason: Additional Documentation Additional Information EEG with frontal spikes. DDx for seizures: 1. Meningoencephalitis 2.Meropenem induced 3. Chemo agents? Recs Agree with neuro consult LP: d/w Dr.Iskandar BHAGAT Meropenem IV Start Zerbaxa IV pending cultures Follow cultures Follow clinically. derek clinical pharmacist. Leena Fletcher MD Dec 08, 2016 15:51
[2016-12-08] MEDS: VANCOMYCIN INJ 750 MG in SODIUM CHLOR 0.9% 250 ML INJ 250 ML IV SCH (16:00)
--- NOTE | 2016-12-08 16:12 | RADRPT ---
EXAM DATE/TIME: 12/08/2016 14:15 [facility] COMPARISON: No previous studies available for comparison. EXTERNAL COMPARISON : [facility], US ABDOMEN LIVER, May 21, 2008. INDICATIONS : Abdominal pain. MEDICAL HISTORY : Gastroesophageal reflux disease. Hypertension. Chronic obstructive pulmonary disease. Ulcer. Liver di sease. Lung cancer, stage 4. Chemotherapy. SURGICAL HISTORY : Hysterectomy. Breast augmentation. Port, right chest. ENCOUNTER: Initial ACUITY: 1 day PAIN SCORE: Nonresponsive. LOCATION: Abdomen. MEASUREMENTS: LIVER: 15.0 cm length COMMON DUCT: 3 mm RIGHT KIDNEY: 10.5 x 5.3 x 4.6 cm LEFT KIDNEY: 10.4 x 5.2 x 5.7 cm SPLEEN: Non-visualized. AORTA: 1.8cm maximal FINDINGS: Ultrasound of the upper abdomen demonstrates normal echogenicity of the liver. No intrahepatic or ext ra hepatic ductal dilatation is seen. There is hepatopedal flow through the portal vein. The spleen is not visualized. The kidneys demonstrates increased echogenicity of the cortex compatible with medi zac renal disease. No hydronephrosis or mass lesions are identified. A small amount of fluid is prese nt in a perinephric location on the right. Small bilateral effusions are present. CONCLUSION: 1. No evidence of abdominal mass 2. Echogenic kidneys bilaterally compatible with medical renal disease. 3. Small bilateral effusions Dustin Hand MD on December 08, 2016 at 16:09 Board Certified Radiologist. This report was verified electronically.
--- NOTE | 2016-12-08 16:30 | PD.RAD ---
Post Procedure Progress Note Pre Procedure Diagnosis: (1) Altered mental status Post Procedure Diagnosis: (1) Altered mental status Procedure Date: Dec 08, 2016 Supervising Radiologist: Dustin Hand Proceduralist/Assist: Jovon Ramos RT(R), RT Dharmesh(R)() Anesthesia: Local Plan of Activity Patient to Unit: Critical Care Patient Condition: Poor See PACS Report for procedural detail/treatment Spinal Procedure Lumbar Puncture L2-L3 Fluid Removal (CCs): 10 Fluid Description: Dustin Terrell MD Dec 08, 2016 16:30
[2016-12-08] MEDS: CEFTOLOZANE-TAZOBACTAM INJ 1,500 MG in SODIUM CHLORIDE 0.9% INJ 100 ML IV SCH (16:59)
[2016-12-08] MEDS: SODIUM CHLORIDE 0.9% IV SCH (17:00)
[2016-12-08] MEDS: ACYCLOVIR IV SCH (17:00)
--- NOTE | 2016-12-08 17:02 | MG ---
cc: DERREK HINES Lab No: [id number] Date: 12/08/16 Age: Sex: F Race: TECHNIQUE 17 channel EEG. DESCRIPTION The background rhythm is generally slow in the theta and delta frequencies, fairly diffusely. I do not see any lateralizing features. Vertex sharp waves are present. I do not see any truly epileptiform features, however. INTERPRETATION Abnormal study consistent with a diffuse encephalopathy. MD XIAO Bauer/ /4:19 PM /4:44 PM
--- NOTE | 2016-12-08 17:09 | RADRPT ---
EXAM DATE/TIME: 12/08/2016 16:10 [facility] COMPARISON: No previous studies available for comparison. INDICATIONS : Patient presents with altered mental status in need of lumbar puncture for further diagnosis. MEDICAL HISTORY : Metastatic small cell lung cancer to liver and spine Asthma GERD HTN PAD Liver disease SURGICAL HISTORY : Right port Partial hysterectomy Breast augmentation Colonoscopy ENCOUNTER: Initial ACUITY: 1 day PAIN SCORE: Non-responsive LOCATION: N/A LUMBAR PUNCTURE TIME: 16:22 hours FLUORO TIME: 0.7 minutes IMAGE SERIES: 0 cc ACCESS LEVEL: L3-4 OPENING PRESSURE: 27 cm of water CLOSING PRESSURE: Not requested. FLUID: 12 cc of cloudy, yellow CSF was collected and sent to the laboratory for analysis. PROCEDURE : 1. Fluoroscopic guided lumbar puncture. 2. Recording of opening pressure. The risks, benefits and alternatives to the procedure were explained and verbal and written consent w as obtained. The site was prepped in sterile fashion. Full sterile technique was used, including ca p, mask, sterile gloves and gown and a large sterile sheet. Hand hygiene and 2% chlorhexidine and/or betadine/alcohol prep was utilized per protocol for cutaneous antisepsis. The skin and subcutaneous tissues were infiltrated with local anesthetic solution.With fluoroscopic guidance the lumbar thecal sac was punctured at the above level described above and the opening pressure was recorded. The abo ve described fluid was removed without difficulty. The patient tolerated the procedure well and there were no complications. CONCLUSION: Uncomplicated fluoroscopically guided lumbar puncture with pressures as above. Dustin Hand MD on December 08, 2016 at 17:07 Board Certified Radiologist. This report was verified electronically.
[2016-12-08] MEDS ORDERED: AMPICILLIN 500 MG VIAL IV PUSH SCH (18:30)
[2016-12-08 18:31] LABS: VOLUME TUBE # 1 2.5 ML
[2016-12-08 18:32] LABS: GROSS BLOOD TUBE #1 0 (0); SUPERNATE COLOR TUBE #1 CLEAR (CLEAR); SUPERNATE COLOR TUBE #2 CLEAR (CLEAR); SUPERNATE COLOR TUBE #3 CLEAR (CLEAR); SUPERNATE COLOR TUBE #4 CLEAR (CLEAR); WBC TUBE #1 978 /MM3 (0-10)
[2016-12-08 18:33] LABS: CSF LYMPHOCYTES 1 %; CSF MONOCYTES 3 %; CSF NEUTROPHILS 96 %
[2016-12-08] MEDS ORDERED: methylPREDNISolone SO SUCC INJ 1,000 MG in DEXTROSE 5% IN WATER INJ 250 ML IV ONE ×4 (19:15→20:00)
--- NOTE | 2016-12-08 19:27 | HHI.PR ---
Addendum to Inpatient Note Addendum Reason: Additional Documentation Additional Information Recd call from [facility] MD [place]. LP results reviewed. C/w bacterial meningitis. Recs DC Azithro IV Continue Zerbaxa IV pending cultures will deescalate once organism on Gram stain and cultures reviewed in am or clinical picture reassessed. Continue Vanco IV (target 15-20) Agree with Ceftriaxone IV meningitis dose. Start Rifampin IV. Start Ampicillin IV stat. Continue acyclovir IV Follow cultures. Follow clinically. D.w Patients EEG results, LP results and treatment plan. Appreciate neurology recommendations. Leena Fletcher MD Dec 08, 2016 19:27
[2016-12-08] MEDS: AMPICILLIN INJ 2,000 MG in SODIUM CHLORIDE 0.9% INJ 100 ML IV SCH (19:44)
[2016-12-08] MEDS: cefTRIAXone INJ 2,000 MG in SODIUM CHLORIDE 0.9% INJ 100 ML IV SCH (19:44)
[2016-12-08] MEDS ORDERED: RIFAMPIN INJ 300 MG in SODIUM CHLORIDE 0.9% INJ 100 ML IV SCH (21:00)
[2016-12-08] MEDS: MICAFUNGIN INJ 150 MG in SODIUM CHLORIDE 0.9% INJ 100 ML IV SCH (21:36)
--- NOTE | 2016-12-08 21:52 | MB ---
cc: AMANDA OCHOA M.D. DATE OF CONSULTATION: 12/08/2016 HISTORY OF PRESENT ILLNESS A 51-year-old woman with a history of small-cell lung cancer, mets to the liver and spine status post chemotherapy, chronic hyponatremia, SIADH secondary to malignancy, GERD, bronchial asthma, came in with a fever and mental status change, she had never had a seizure before. Last chemotherapy was two days prior to admission. She was tachycardic, heart rate 120, blood pressure down to the 80s-90s systolic, had a temperature of 100.7 rectally. Creatinine 1.31, sodium 131, white count 71,000 with bandemia, hemoglobin 6.8, hematocrit 20. She got some blood. A CAT scan was negative. MRI of the brain was reported as negative for any mets. She got Vancomycin. Then today about noon evidently she had a seizure where she was on sedatives, on a vent and stiffened and seemed to have tremors and shakes and the nurse thought it was pretty classical of a seizure for 2-3 minutes. She was given 1 mg of Ativan and has not had any since. SOCIAL HISTORY There is a history of smoking, not a smoker now. ALLERGIES CODEINE AND LYRICA. PAST MEDICAL HISTORY As above, also - 1. Migraines. 2. Hypertension. 3. Breast implant. 4. Colonoscopy. 5. Hysterectomy. MEDICATIONS AT HOME 1. Ventolin inhaler. 2. Acetaminophen. 3. Amlodipine. 4. Prochlorperazine. 5. Protonix. 6. Xanax. 7. Flexeril. 8. Singulair. NEUROLOGIC EXAMINATION VITAL SIGNS: Afebrile, 98, 20, 87/64. She is on pressors now, best blood pressure 118/91. She is on a ventilator, fully sedated. The toes are mute. Moved her left hand spontaneously. Tone in bilateral lower extremities was normal. There is no ankle clolnus. DTRs are trace. Eyes are rolled back. Pupils are equal. No response to commands. LABORATORY DATA She had an LP done. Total protein 180. Lactic acid 5.5. UA was negative. Urine drug screen was normal last one in October of this year. Basic metabolic profile essentially unremarkable. Carbon dioxide 18. Magnesium 3. LFTs near normal. B12 was normal in October of this year, TSH was normal at that time. CEA elevated at 6.4. ABG: The worst one was 7.11, 52, 261 earlier today. She does have glucose normal at 47. CSF shows many white cells, no organisms seen. IMAGING MRI of the brain read as negative. It was done with and without contrast. She had an MRI of the brain in October of this year, it was also read as negative. Certainly no large mets are noted however on the flare images on the right frontal lobe there appears to be some hyperintensity seen in the sulci and also in the white matter. EEG read today by Dr. Watts, bella, no definite seizure is seen. CURRENT MEDICATIONS 1. Keppra IV. 2. Acyclovir. 3. Vancomycin. 4. Azithromycin. 5. Micafungin IV. IMPRESSION The worry here is for L[employer]ER infection certainly with the abnormal CSF. I think that is likely at this point. I will be in touch with the med team. I note she is on acyclovir and the Vanco, may need to add ampicillin. Have Infectious Disease see the patient. A carcinomatous meningitis could also be considered although I note the glucose is normal. We will add ampicillin and ceftriaxone. MD BASIM Mercado/KI /6:24 PM /9:14 PM
[2016-12-08 22:50] LABS: BICARBONATE 24.5 MEQ/L (21.0-32.0); POTASSIUM 3.3 MEQ/L (3.5-5.1)
[2016-12-08 23:09] LABS: CALCIUM-PROTEIN CORRECTED 8.7 MG/DL (8.5-10.1)
[2016-12-09] VITALS (18 sets, daily range): BP systolic 95–134; BP diastolic 61–89; PULSE 74–103; RESP 20–21; TEMP 97.5–99.1; O2SAT 93–100
[2016-12-09] MEDS: ACYCLOVIR IV SCH ×3 (00:08→16:32)
[2016-12-09] MEDS: SODIUM CHLORIDE 0.9% IV SCH ×3 (00:08→16:32)
[2016-12-09] MEDS: CEFTOLOZANE-TAZOBACTAM INJ 1,500 MG in SODIUM CHLORIDE 0.9% INJ 100 ML IV SCH ×2 (00:08→09:00)
[2016-12-09] MEDS: AMPICILLIN INJ 2,000 MG in SODIUM CHLORIDE 0.9% INJ 100 ML IV SCH ×6 (00:11→21:32)
[2016-12-09] MEDS ORDERED: PROPOFOL 1000 MG/100 ML INJ 100 ML ONE (00:32)
[2016-12-09] MEDS: RESP: ALBUTEROL 2.5 MG/IPRATROPIUM 0.5 MG NEB (SCH) INH ×4 (02:56→20:55)
[2016-12-09] MEDS: levETIRAcetam INJ 1,000 MG in SODIUM CHLORIDE 0.9% INJ 100 ML IV SCH ×2 (03:06→16:40)
[2016-12-09] MEDS: SODIUM BICARBONATE 8.4% INJ 100 MEQ in WATER STERILE FOR INJ 850 ML IV SCH (03:07)
[2016-12-09 03:35] LABS: BICARBONATE 23.6 MEQ/L (21.0-32.0); CALCIUM-PROTEIN CORRECTED 8.6 MG/DL (8.5-10.1); POTASSIUM 3.1 MEQ/L (3.5-5.1); TOTAL BILIRUBIN ADULT 1.5 MG/DL (0.2-1.0)
[2016-12-09 03:39] LABS: AUTOMATED NEUTROPHIL # 24.2 TH/MM3 (1.8-7.7); BASOPHIL % 0.1 % (0.0-2.0); HEMATOCRIT 27.6 % (35.0-46.0); LYMPH % 0.6 % (9.0-44.0); LYMPHOCYTE # 0.1 TH/MM3 (1.0-4.8); MEAN CELL VOLUME 88.3 FL (80.0-100.0); MEAN CORPUSCULAR HEMOGLOBIN 30.2 PG (27.0-34.0); MEAN CORPUSCULAR HGB CONC 34.2 % (32.0-36.0); MONO % 1.5 % (0.0-8.0); NEUT % 97.8 % (16.0-70.0); PLATELET COUNT 58 TH/MM3 (150-450); RED BLOOD COUNT 3.12 MIL/MM3 (4.00-5.30); RED CELL DISTRIBUTION WIDTH 17.3 % (11.6-17.2); WHITE BLOOD COUNT 24.8 TH/MM3 (4.0-11.0)
[2016-12-09 03:43] LABS: HEMO FLAGS AUTO DIFF
[2016-12-09 03:44] LABS: INTERNATIONAL NORMALIZED RATIO 1.1 RATIO; PROTHROMBIN TIME - PATIENT 12.1 SEC (9.8-11.6)
[2016-12-09] MEDS: POTASSIUM CHLOR 40 MEQ PREMIX 100 ML IV PRN (05:09)
[2016-12-09] MEDS: PHENYLEPHRINE INJ 40 MG in DEXTROSE 5% IN WATE 500 ML INJ 496 ML IV SCH ×2 (05:11)
[2016-12-09] MEDS: metroNIDAZOLE 500 MG INJ 100 ML IV SCH (05:25)
[2016-12-09] MEDS: INSULIN NovoLIN REGULAR SUPPLEMENTAL SCALE SQ SCH ×4 (05:25→18:00)
[2016-12-09] MEDS: CHLORHEXIDINE GLUCONATE 2 % 1 PACK (2 CLOTHS) TOP SCH (05:26)
[2016-12-09 06:06] LABS: ACANTHOCYTES OCC (NORMAL); PLATELET ESTIMATE SMEAR LOW (NORMAL); PLATELET MORPHOLOGY ENLARGED (NORMAL); SCAN/DIFF AUTO DIFF CONFIRMED; TARGET CELLS 1+ (NORMAL)
[2016-12-09 06:07] LABS: HOWELL-JOLLY BODIES PRESENT (NONE SEEN)
[2016-12-09 06:08] LABS: KERATOCYTES OCC (NORMAL)
--- NOTE | 2016-12-09 07:55 | HHI.CCPN ---
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 She presented to [facility] ED with altered mental status, lethargy and fever for the past couple days. Her last chemotherapy was two days ago however when the patient went to receive another session yesterday it was not given due to her condition and instead she was given IV hydration. On arrival to the ED, the patient was tachycardic with a heart rate of 110-120s and initially she was hypotensive with a systolic blood pressure 80s-90s. She also was found to have a temperature of 100.7 rectally. In the ED she was given 2 liter boluses of normal saline with improvement of her blood pressure to 141/ 86. Her laboratory data showed mild acute kidney injury with a creatinine level of 1.31 and hyponatremia with a sodium level of 131. In addition, the patient had significant leukocytosis with a WBC of 71.4 associated with bandemia 28. Also, her hemoglobin was 6.8 with hematocrit of 20.2. Two units of packed RBCs have been ordered by the ED physician. The patient received a Neulasta injection post her chemotherapy. Due to her altered mental status, a CT scan of the brain was obtained which was negative for acute process. The patient also had MRI of the brain which was negative for any metastatic disease. A chest x-ray in the ED showed Infusaport in good position and mild interstitial prominence. The patient received Vancomycin and cefepime in the ED , and a CT scan of the abdomen and pelvis has been ordered. Overall, history is limited as the patient is a poor historian. However, she is not complaining of any pain. 3/ Last night patient became tachycardic, hypoxic and worsening mental status she was subsequently intubated and placed on mechanical ventilation. She received additional 2L NS for hypotension and started on Neosyn 50 mics. s/p transfusion 2u PRBC yesterday for Hgb 6.8 her Hgb 11.2 this morning. 12/09 Patient remains sedated with Diprivan and intubated. On Neosyn 40 mics and bicarb drip. T:99.9 last night WBC trending down 24 today from 55. s/p LP showed clear CSF, WBC 978, TP:179 , nl glc Objective Vital Signs Date Time Temp Pulse Resp B/P Pulse Ox O2 Delivery O2 Flow Rate FiO2 12/09/16 06:00 82 12/09/16 04:00 99.1 21 134/89 99 12/09/16 04:00 60 12/07/16 21:38 Partial Rebreather 12/07/16 18:30 2 Intake and Output 12/08/16 12/08/16 12/09/16 08:00 16:00 00:00 Intake Total 2486 ml 1208 ml 2462 ml Output Total 400 ml 750 ml 450 ml Balance 2086 ml 458 ml 2012 ml Result Diagram: 12/09/16 0144 12/09/16 0144 Other Results Laboratory Tests Test 12/08/16 12/08/16 12/08/16 12/08/16 08:22 10:07 16:25 21:50 White Blood Count 55.9 TH/MM3 Red Blood Count 3.56 MIL/MM3 Hemoglobin 10.7 GM/DL Hematocrit 31.7 % Mean Corpuscular Volume 89.0 FL Mean Corpuscular Hemoglobin 30.0 PG Mean Corpuscular Hemoglobin 33.7 % Concent Red Cell Distribution Width 17.3 % Platelet Count 76 TH/MM3 Mean Platelet Volume 10.1 FL Neutrophils (%) (Auto) 96.7 % Lymphocytes (%) (Auto) 1.3 % Monocytes (%) (Auto) 1.8 % Eosinophils (%) (Auto) 0.1 % Basophils (%) (Auto) 0.1 % Neutrophils # (Auto) 54.1 TH/MM3 Lymphocytes # (Auto) 0.7 TH/MM3 Monocytes # (Auto) 1.0 TH/MM3 Eosinophils # (Auto) 0.0 TH/MM3 Basophils # (Auto) 0.0 TH/MM3 CBC Comment AUTO DIFF Differential Total Cells 100 Counted Neutrophils % (Manual) 85 % Band Neutrophils % 13 % Lymphocytes % 1 % Monocytes % 1 % Neutrophils # (Manual) 54.8 TH/MM3 Differential Comment FINAL DIFF MANUAL Toxic Vacuolation PRESENT Platelet Estimate LOW Platelet Morphology Comment NORMAL Target Cells 1+ Virgil Cells 1+ Prothrombin Time 12.2 SEC Prothromb Time International 1.1 RATIO Ratio Fibrinogen 489 mg/dL Sodium Level 136 MEQ/L 139 MEQ/L Potassium Level 4.7 MEQ/L 3.3 MEQ/L Chloride Level 110 MEQ/L 104 MEQ/L Carbon Dioxide Level 18.0 MEQ/L 24.5 MEQ/L Anion Gap 8 MEQ/L 11 MEQ/L Blood Urea Nitrogen 16 MG/DL 17 MG/DL Creatinine 1.14 MG/DL 1.29 MG/DL Estimat Glomerular Filtration 50 ML/MIN 43 ML/MIN Rate Random Glucose 166 MG/DL 129 MG/DL Lactic Acid Level 1.8 mmol/L Calcium Level 7.3 MG/DL 7.3 MG/DL Protein Corrected Calcium 8.1 MG/DL 8.7 MG/DL Total Bilirubin 0.6 MG/DL Aspartate Amino Transf 65 U/L (AST/SGOT) Alanine Aminotransferase 23 U/L (ALT/SGPT) Alkaline Phosphatase 74 U/L Total Protein 5.6 GM/DL 4.7 GM/DL Albumin 2.1 GM/DL Blood Gas Puncture Site LT RADIAL Blood Gas Patient Temperature 98.6 Blood Gas HCO3 19 mmol/L Blood Gas Base Excess -5.6 mmol/L Blood Gas Oxygen Saturation 92 % Arterial Blood pH 7.37 Arterial Blood Partial 33 mmHg Pressure CO2 Arterial Blood Partial 74 mmHg Pressure O2 Arterial Blood Oxygen Content 13.0 Vol % Arterial Blood 1.5 % Carboxyhemoglobin Arterial Blood Methemoglobin 1.4 % Blood Gas Hemoglobin 9.9 G/DL Oxygen Delivery Device VENTILATOR Blood Gas Ventilator Setting 20/500/40/5PEEP Blood Gas Inspired Oxygen 40 % CSF Volume (Tube 1) 2.5 ML CSF Supernatant Color (tube 1) CLEAR CSF Gross Blood (Tube 1) 0 CSF WBC (Tube 1) 978 /MM3 CSF RBC (Tube 1) 86 /MM3 CSF Volume (Tube 2) 3.0 ML CSF Supernatant Color (tube 2) CLEAR CSF Volume (Tube 3) 3.0 ML CSF Supernatant Color (tube 3) CLEAR CSF Volume (Tube 4) 3.0 ML CSF Supernatant Color (tube 4) CLEAR CSF Neutrophils 96 % CSF Lymphocytes 1 % CSF Monocytes 3 % CSF Glucose 47 MG/DL CSF Lactic Acid 5.5 MMOL/L CSF Total Protein 179.9 MG/DL Test 12/08/16 12/09/16 22:30 01:44 D-Dimer Quantitative (PE/DVT) 5.14 MG/L FEU White Blood Count 24.8 TH/MM3 Red Blood Count 3.12 MIL/MM3 Hemoglobin 9.4 GM/DL Hematocrit 27.6 % Mean Corpuscular Volume 88.3 FL Mean Corpuscular Hemoglobin 30.2 PG Mean Corpuscular Hemoglobin 34.2 % Concent Red Cell Distribution Width 17.3 % Platelet Count 58 TH/MM3 Mean Platelet Volume 10.5 FL Neutrophils (%) (Auto) 97.8 % Lymphocytes (%) (Auto) 0.6 % Monocytes (%) (Auto) 1.5 % Eosinophils (%) (Auto) 0.0 % Basophils (%) (Auto) 0.1 % Neutrophils # (Auto) 24.2 TH/MM3 Lymphocytes # (Auto) 0.1 TH/MM3 Monocytes # (Auto) 0.4 TH/MM3 Eosinophils # (Auto) 0.0 TH/MM3 Basophils # (Auto) 0.0 TH/MM3 CBC Comment AUTO DIFF Differential Comment AUTO DIFF CONFIRMED Platelet Estimate LOW Platelet Morphology Comment ENLARGED Target Cells 1+ Perera-Bly Bodies PRESENT Acanthocytes OCC Keratocytes OCC Prothrombin Time 12.1 SEC Prothromb Time International 1.1 RATIO Ratio Fibrinogen 482 mg/dL Sodium Level 140 MEQ/L Potassium Level 3.1 MEQ/L Chloride Level 103 MEQ/L Carbon Dioxide Level 23.6 MEQ/L Anion Gap 13 MEQ/L Blood Urea Nitrogen 18 MG/DL Creatinine 1.28 MG/DL Estimat Glomerular Filtration 44 ML/MIN Rate Random Glucose 133 MG/DL Calcium Level 7.4 MG/DL Protein Corrected Calcium 8.6 MG/DL Total Bilirubin 1.5 MG/DL Aspartate Amino Transf 82 U/L (AST/SGOT) Alanine Aminotransferase 38 U/L (ALT/SGPT) Alkaline Phosphatase 67 U/L Total Protein 5.0 GM/DL Albumin 1.9 GM/DL Imaging Last Impressions Lumbar Puncture Fluoroscopy 12/08/16 0000 Signed Impressions: Service Date/Time: December 16:10 - CONCLUSION: Uncomplicated fluoroscopically guided lumbar puncture with pressures as above. Dustin Hand MD Lower Extremity Ultrasound 12/08/16 0000 Signed Impressions: Service Date/Time: December 14:46 - CONCLUSION: Normal examination. Jamel Stevenson MD Chest X-Ray 12/08/16 0000 Signed Impressions: Service Date/Time: December 04:03 - CONCLUSION: 1. Fairly rapid development of bilateral airspace disease over the last day with small effusions. Differential diagnosis includes edema and infection or aspiration. 2. Endotracheal tube tip is at kaitlynn directed towards the right mainstem bronchus. This should be withdrawn about 3 cm. Clem Inrgam MD Abdomen Ultrasound 12/08/16 Signed Impressions: Service Date/Time: December 14:15 - CONCLUSION: 1. No evidence of abdominal mass 2. Echogenic kidneys bilaterally compatible with medical renal disease. 3. Small bilateral effusions Dustin Hand MD Head CT 12/07/16 Signed Impressions: Service Date/Time: Wednesday, December 07, 2016 12:10 - CONCLUSION: Negative for acute process.. Gurwinder Hernandez MD FACR Brain MRI 12/07/16 Signed Impressions: Service Date/Time: Wednesday, December 07, 2016 15:03 - CONCLUSION: 1. Negative MRI of the brain. I do not see an etiology for the patient's metastatic disease. 2. I do not see obvious findings of a meningeal carcinomatosis either. Gurwinder Hernandez MD FACR Abdomen/Pelvis CT 12/07/16 Signed Impressions: Service Date/Time: Wednesday, December 07, 2016 16:45 - CONCLUSION: 1. Abnormal lung bases with coarse interstitial changes suggesting fibrosis. 2. Abnormal left kidney. Pyelonephritis cannot be excluded without contrast. 3. The gallbladder appears prominent but unremarkable. 4. I do not see any etiology for the patient's abdominal pain. Gurwinder Hernandez MD FACR Objective Remarks GENERAL: Patient is 51 yo critically ill appearing intubated, sedated and on pressors. SKIN: Warm and dry. HEAD: Normocephalic. EYES: No scleral icterus. No injection or drainage. NECK: Supple, trachea midline. No JVD or lymphadenopathy. Orally intubated CARDIOVASCULAR: Regular rate and rhythm without murmurs, gallops, or rubs. RESPIRATORY: Breath sounds equal bilaterally. No accessory muscle use. GASTROINTESTINAL: Abdomen soft, mild tenderness on palpation. MUSCULOSKELETAL: No cyanosis, or edema. Neuro: Sedated, intubated A/P Assessment and Plan 1. VDRF 2. Leukocytosis ..trending down 3. Rule out aspiration pneumonia. 4. Anemia, thrombocytopenia r/o DIC 5. Acute kidney injury. 6. Encephalopathy 7 Bacterial Meningitis 8. Small cell lung cancer status post chemotherapy 9. Chronic hyponatremia. 10. 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 11 Hyperglycemia 12 Elevated AST 13. Hypertension. 14. GERD. 15. History of bronchial asthma. Plan Neuro: On Diprivan infusion for sedation Monitor neuro status closely and avoid sedatives. CT brain and MRI brain negative for acute process EEG showed diffuse encephalopathy- on Keppra 500mg IV Q12, s/p LP 3/ - clear CSF, WBC 978, TP:179, nl Glc, 96 Neutrophils. Continue with abx, Decadron 10mg Q6 Neuro: Dr. Howe Pulm: Continue with vent support and maintain sats above 92%. Bronchodilators , ICU vent bundle. Check ABG CV: Wean off Neosyn monitor HR and BP and maintain MAP > 65 mmHg. Lactic acid: 1.8 : Monitor renal function, Is and Os and electrolyte replacement per protocol. Given 4L crystalloids since admission. Will need K replacement today. d/c bicarb drip CT abd/pelvis : Pyelonephritis could not be excluded . US abdomen: No masses, medical renal disease GI: On Protonix 40 mg IV daily for GI prophylaxis. Start TF-Glucerna 1.5 with goal rate 45ml/hr ID: Continue with abx per ID ( Zerbaxa, Ampicillin, Vanco, Ceftriaxone, Acyclovir, Flagyl, Micafungin, Rifampin) Strep pneumonia and Legionella urinary antigen negative. Follow up on cxs. s/p LP 12/07, follow up on LP results Heme: Monitor CBC, coags, s/p transfusion 2 units of PRBC on arrival. Heme-Onc is following- Dr. Gama. Endo: Sliding scale insulin with Accu-Cheks for glycemic control. GI prophylaxis with Protonix 40 mg daily and DVT prophylaxis with SCDs. Not on chemical anticoagulation prophylaxis due to anemia requiring blood transfusions and thrombocytopenia 3/2 Doppler US LE negative for DVT Lines: Right Infuse A port CCT 30 mins . Ryan Nunn MD Dec 09, 2016 07:55
[2016-12-09] MEDS: CHLORHEXIDINE 0.12% (ORAL KIT) 15 ML CUP MT SCH ×2 (08:00→21:30)
[2016-12-09 08:18] LABS: BLOOD GAS BASE EXCESS -2.5 mmol/L (-2-2); BLOOD GAS CARBOXYHEMOGLOBIN 1.6 % (0-4); BLOOD GAS HCO3 22 mmol/L (22-26); BLOOD GAS METHEMOGLOBIN 1.2 % (0-2); BLOOD GAS O2 HGB SATURATION 91 % (90-100); BLOOD GAS OXYGEN CONTENT 13.6 Vol % (12.0-20.0); BLOOD GAS PCO2 35 mmHg (38-42); BLOOD GAS PO2 70 mmHg (61-120); BLOOD GAS TOTAL HGB 10.6 G/DL (12.0-16.0); CRITICAL VALUE NO; FIO2 40 %; OXYGEN DEVICE VENTILATOR; TEMP CORR TO 98.6; VENT SETTINGS AC/20/500/PEEP5
[2016-12-09 08:19] LABS: DRAW SITE RT RADIAL; NUMBER OF ARTERIAL PUNCTURES 1; STAT NO; ULNAR PULSE PRESENT
[2016-12-09] MEDS: DEXAMETHASONE SOD PHOS 4 MG/ML VIAL IV PUSH SCH ×3 (08:19→21:31)
[2016-12-09] MEDS: PANTOPRAZOLE SODIUM 40 MG VIAL IV SCH (08:19)
[2016-12-09] MEDS: cefTRIAXone INJ 2,000 MG in SODIUM CHLORIDE 0.9% INJ 100 ML IV SCH ×2 (08:23→21:32)
[2016-12-09] MEDS: RIFAMPIN 150 MG CAP PO SCH ×2 (08:24→21:31)
--- NOTE | 2016-12-09 08:47 | HHI.PR ---
Subjective Remarks just off sedatives dip Objective Vital Signs Date Time Temp Pulse Resp B/P Pulse Ox O2 Delivery O2 Flow Rate FiO2 12/09/16 06:00 82 12/09/16 04:00 99.1 84 21 134/89 99 12/09/16 04:00 84 12/09/16 04:00 60 12/09/16 02:56 97 70 12/09/16 02:00 86 12/09/16 00:00 99.0 98 21 100/61 95 12/09/16 00:00 98 12/09/16 00:00 40 12/08/16 23:18 96 50 12/08/16 22:00 98 12/08/16 20:00 92 12/08/16 20:00 99.9 92 20 99/68 99 12/08/16 20:00 40 12/08/16 19:28 98 40 12/08/16 18:00 90 12/08/16 16:50 98.0 100 20 87/64 99 12/08/16 16:00 98 12/08/16 16:00 100 100 12/08/16 15:23 98 40 12/08/16 14:00 97 12/08/16 12:00 105 12/08/16 12:00 98.3 90 16 131/66 99 12/08/16 11:42 99 40 12/08/16 10:00 105 12/08/16 08:50 92 40 I/O 12/08/16 12/08/16 12/08/16 12/09/16 12/09/16 12/09/16 07:00 15:00 23:00 07:00 15:00 23:00 Intake Total 2486 ml 1208 ml 2462 ml 1897 ml Output Total 400 ml 750 ml 450 ml 500 ml Balance 2086 ml 458 ml 2012 ml 1397 ml Intake Oral 0 ml 0 ml 0 ml IV Total 2486 ml 1208 ml 2462 ml 1897 ml Packed Cells 0 ml 0 ml 0 ml Output Urine Total 400 ml 750 ml 450 ml 500 ml # Bowel Movements 0 0 0 Result Diagram: 12/09/16 0144 12/09/16 0144 Other Results csf posite 90% poly nl glucose 900 wbc inc protein no organisms Objective Remarks still heavily sedated toes down Assessment and Plan Assessment and Plan imp on abt and steroids make sure cytology done i just ordered cont current rx and follow clinically neuro will fu over weekend cont keppra watch creat on acyclovir Dustin Howe MD Dec 09, 2016 08:47
--- NOTE | 2016-12-09 10:45 | RADRPT ---
EXAM DATE/TIME: 12/09/2016 10:12 [place] COMPARISON: CHEST SINGLE AP, December 08, 2016, 4:03. INDICATIONS : Short of breath. MEDICAL HISTORY : Hypertension. Chronic obstructive pulmonary disease. Carcinoma, lung. SURGICAL HISTORY : breast augmentation. ENCOUNTER: Initial ACUITY: 3 days PAIN SCORE: Non-responsive. LOCATION: Bilateral chest FINDINGS: A single view of the chest demonstrates diffuse bilateral airspace disease slightly more prominent on current study and greater in the right lung. Endotracheal tube with tip 8 mm above the kaitlynn. Right -sided portacatheter and nasogastric tube are unchanged. The cardiomediastinal contours are unremark able. Osseous structures are intact. CONCLUSION: 1. Endotracheal tube 8 mm above the kaitlynn and could be retracted 3 cm. 2. Slight worsening airspace disease greater in the right lung. Chaparro Baig MD on December 09, 2016 at 10:42 Board Certified Radiologist. This report was verified electronically.
--- NOTE | 2016-12-09 12:36 | EC ---
Study Study Date:12/09/2016 STUDY CONCLUSIONS SUMMARY - Left ventricle: The cavity size was normal. Wall thickness was normal. Systolic function was severely reduced. The estimated ejection fraction was in the range of 25% to 30%. Diffuse hypokinesis. - Mitral valve: Mild regurgitation. - Tricuspid valve: Moderate regurgitation. - Pulmonary arteries: Systolic pressure was moderately increased. PA peak pressure: 48mm Hg (S). - Pericardium, extracardiac: There was a left pleural effusion. If LV function is below 40, please consider prescribing an ACEI or ARB or document rationale for non-use. PROCEDURE DATA STUDY STATUS: Elective. Procedure: Transthoracic echocardiography. Image quality was good. Scanning was performed from the parasternal, apical, and subcostal acoustic windows. Study completion: The patient tolerated the procedure well. Transthoracic echocardiography. M-mode, complete 2D, complete spectral Doppler, and color Doppler. Patient status: Inpatient. CARDIAC ANATOMY LEFT VENTRICLE: The cavity size was normal. Wall thickness was normal. Systolic function was severely reduced. The estimated ejection fraction was in the range of 25% to 30%. Diffuse hypokinesis. AORTIC VALVE: Trileaflet; normal thickness leaflets. Doppler: Transvalvular velocity was within the normal range. There was no stenosis. No regurgitation. AORTA: Aortic root: The aortic root was normal in size. MITRAL VALVE: Structurally normal valve. Doppler: Transvalvular velocity was within the normal range. There was no evidence for stenosis. Mild regurgitation. Peak gradient: 4mm Hg (D). LEFT ATRIUM: The atrium was normal in size. RIGHT VENTRICLE: The cavity size was normal. Wall thickness was normal. PULMONIC VALVE: Doppler: Transvalvular velocity was within the normal range. There was no evidence for stenosis. No regurgitation. TRICUSPID VALVE: Structurally normal valve. Doppler: Transvalvular velocity was within the normal range. Moderate regurgitation. PULMONARY ARTERY: The main pulmonary artery was normal-sized. Systolic pressure was moderately increased. RIGHT ATRIUM: The atrium was normal in size. PERICARDIUM: There was no pericardial effusion. SYSTEMIC VEINS: Inferior vena cava: The vessel was normal in size. Pleura: There was a left pleural effusion. BASIC MEASUREMENTS ADULT Normal Left ventricle LV internal dimension, ED, chordal level, *41.7 mm 43-52 PLAX LV internal dimension, ES, chordal level, 36.3 mm 23-38 PLAX Fractional shortening, chordal level, PLAX *13 % >29 LV posterior wall thickness, ED 5.89 mm IVS/LVPW ratio, ED *1.45 <1.3 Ventricular septum Septal thickness, ED 8.52 mm Aortic valve Leaflet separation 18 mm 15-26 Left atrium Anterior-posterior dimension 31 mm Right ventricle RV internal dimension, ED, PLAX 21 mm 19-38 BASIC MEASUREMENTS ADULT Normal Aortic valve Leaflet separation 18 mm 15-26 Aorta Root diameter, ED 31 mm 20-37 DOPPLER MEASUREMENTS ADULT Normal Main pulmonary artery Pressure, S *48 mm Hg =30 Mitral valve Peak E-wave velocity 93.8 cm/s Peak A-wave velocity 121 cm/s Peak gradient, D 4 mm Hg Peak E/A ratio 0.8 Tricuspid valve Regurgitant peak velocity 266 cm/s Peak RV-RA gradient, S 28 mm Hg Maximal regurgitant velocity 266 cm/s Systemic veins Estimated CVP 20 mm Hg Right ventricle RV pressure, S *48 mm Hg <30 LEGEND: Mean values are shown as u=mean value. Asterisk (*) damian values outside specified normal range. Prepared and signed by Zelda Smith [id number]
[2016-12-09] MEDS: FLUCONAZOLE 100 MG TAB PO SCH (12:43)
[2016-12-09] MEDS: metroNIDAZOLE 500 MG TAB PO SCH ×2 (12:43→21:31)
--- NOTE | 2016-12-09 13:34 | HHI.IDPN ---
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 Patient undergoes chemotherapy last session on Nov 11 with last dose of Neulesta on Nov 11 (per Oncology). Admitted with severe sepsis. Overnight patient did ok. On pressors Neosyn gtt but being weaned off. On Sedation, when off sedation moves all 4 extremities. Urine output ok Fevers defervesced. No rash No diarrhea No seizures Antibiotics Meropenem IV (DCed due to seizures new onset) Vanco IV Micafungin IV Zerbaxa IV Ceftriaxone IV Ampicillin IV Acyclovir IV Rifampin oral. Lines Line sites with no e.o infection Past Medical History reviewed Allergies: Coded Allergies: Lipitor (Verified Adverse Reaction, Severe, Myalgia, 12/07/16) Codeine (Verified Adverse Reaction, Intermediate, Sedation, 12/07/16) Uncoded Allergies: SEASONAL ALLERGIES (Allergy, Mild, 03/13/08) estroven (Adverse Reaction, Intermediate, raised BP, 06/12/15) Objective . Vital Signs Date Time Temp Pulse Resp B/P Pulse Ox O2 Delivery O2 Flow Rate FiO2 12/09/16 11:08 95 45 12/09/16 10:00 79 12/09/16 09:14 98 45 12/09/16 08:00 40 12/09/16 06:00 82 12/09/16 04:00 99.1 84 21 134/89 99 12/09/16 04:00 84 12/09/16 04:00 60 12/09/16 02:56 97 70 12/09/16 02:00 86 12/09/16 00:00 99.0 98 21 100/61 95 12/09/16 00:00 98 12/09/16 00:00 40 12/08/16 23:18 96 50 12/08/16 22:00 98 12/08/16 20:00 92 12/08/16 20:00 99.9 92 20 99/68 99 12/08/16 20:00 40 12/08/16 19:28 98 40 12/08/16 18:00 90 12/08/16 16:50 98.0 100 20 87/64 99 12/08/16 16:00 98 12/08/16 16:00 100 100 12/08/16 15:23 98 40 12/08/16 14:00 97 12/08/16 12/08/16 12/09/16 15:00 23:00 07:00 Intake Total 1208 ml 2462 ml 1897 ml Output Total 750 ml 450 ml 500 ml Balance 458 ml 2012 ml 1397 ml Intake Oral 0 ml 0 ml 0 ml IV Total 1208 ml 2462 ml 1897 ml Packed Cells 0 ml 0 ml 0 ml Output Urine Total 750 ml 450 ml 500 ml # Bowel Movements 0 0 0 . Laboratory Tests Test 12/07/16 12/08/16 12/08/16 12/09/16 22:15 06:15 08:22 01:44 White Blood Count 63.3 TH/MM3 63.6 TH/MM3 55.9 TH/MM3 24.8 TH/MM3 Red Blood Count 3.82 MIL/MM3 3.77 MIL/MM3 3.56 MIL/MM3 3.12 MIL/MM3 Hemoglobin 11.5 GM/DL 11.2 GM/DL 10.7 GM/DL 9.4 GM/DL Hematocrit 33.7 % 33.8 % 31.7 % 27.6 % Mean Corpuscular Volume 88.2 FL 89.7 FL 89.0 FL 88.3 FL Mean Corpuscular Hemoglobin 30.0 PG 29.7 PG 30.0 PG 30.2 PG Mean Corpuscular Hemoglobin 34.1 % 33.2 % 33.7 % 34.2 % Concent Red Cell Distribution Width 16.4 % 17.5 % 17.3 % 17.3 % Platelet Count 110 TH/MM3 90 TH/MM3 76 TH/MM3 58 TH/MM3 Mean Platelet Volume 9.7 FL 10.2 FL 10.1 FL 10.5 FL Neutrophils (%) (Auto) 96.7 % 96.0 % 96.7 % 97.8 % Lymphocytes (%) (Auto) 0.8 % 0.7 % 1.3 % 0.6 % Monocytes (%) (Auto) 2.2 % 2.4 % 1.8 % 1.5 % Eosinophils (%) (Auto) 0.1 % 0.7 % 0.1 % 0.0 % Basophils (%) (Auto) 0.2 % 0.2 % 0.1 % 0.1 % Neutrophils # (Auto) 61.3 TH/MM3 61.1 TH/MM3 54.1 TH/MM3 24.2 TH/MM3 Lymphocytes # (Auto) 0.5 TH/MM3 0.4 TH/MM3 0.7 TH/MM3 0.1 TH/MM3 Monocytes # (Auto) 1.4 TH/MM3 1.5 TH/MM3 1.0 TH/MM3 0.4 TH/MM3 Eosinophils # (Auto) 0.1 TH/MM3 0.4 TH/MM3 0.0 TH/MM3 0.0 TH/MM3 Basophils # (Auto) 0.1 TH/MM3 0.1 TH/MM3 0.0 TH/MM3 0.0 TH/MM3 CBC Comment AUTO DIFF AUTO DIFF AUTO DIFF AUTO DIFF Differential Total Cells 100 100 100 Counted Neutrophils % (Manual) 88 % 84 % 85 % Band Neutrophils % 10 % 14 % 13 % Lymphocytes % 1 % 2 % 1 % Monocytes % 1 % 1 % Neutrophils # (Manual) 62.0 TH/MM3 62.3 TH/MM3 54.8 TH/MM3 Nucleated Red Blood Cells 1 /100 WBC Differential Comment FINAL DIFF FINAL DIFF FINAL DIFF AUTO DIFF MANUAL MANUAL MANUAL CONFIRMED Toxic Vacuolation PRESENT PRESENT Dohle Bodies PRESENT Platelet Estimate LOW LOW LOW LOW Platelet Morphology Comment NORMAL NORMAL NORMAL ENLARGED [place] Cells 1+ 1+ 1+ Acanthocytes 1+ OCC Target Cells 1+ 1+ 1+ Perera-[place] Bodies PRESENT Keratocytes OCC Laboratory Tests Test 12/07/16 12/08/16 12/08/16 12/08/16 22:15 06:15 08:22 21:50 Lactic Acid Level 1.5 mmol/L 1.8 mmol/L Sodium Level 133 MEQ/L 133 MEQ/L 136 MEQ/L 139 MEQ/L Potassium Level 3.3 MEQ/L 5.7 MEQ/L 4.7 MEQ/L 3.3 MEQ/L Chloride Level 102 MEQ/L 108 MEQ/L 110 MEQ/L 104 MEQ/L Carbon Dioxide Level 18.4 MEQ/L 19.3 MEQ/L 18.0 MEQ/L 24.5 MEQ/L Anion Gap 13 MEQ/L 6 MEQ/L 8 MEQ/L 11 MEQ/L Blood Urea Nitrogen 20 MG/DL 18 MG/DL 16 MG/DL 17 MG/DL Creatinine 1.11 MG/DL 1.23 MG/DL 1.14 MG/DL 1.29 MG/DL Estimat Glomerular Filtration 52 ML/MIN 46 ML/MIN 50 ML/MIN 43 ML/MIN Rate Random Glucose 97 MG/DL 195 MG/DL 166 MG/DL 129 MG/DL Calcium Level 7.4 MG/DL 7.5 MG/DL 7.3 MG/DL 7.3 MG/DL Protein Corrected Calcium 8.1 MG/DL 8.1 MG/DL 8.7 MG/DL Phosphorus Level 5.4 MG/DL 4.9 MG/DL C-Reactive Protein 22.00 MG/DL Total Protein 5.8 GM/DL 5.9 GM/DL 5.6 GM/DL 4.7 GM/DL Magnesium Level 3.1 MG/DL Total Bilirubin 0.6 MG/DL 0.6 MG/DL Aspartate Amino Transf 67 U/L 65 U/L (AST/SGOT) Alanine Aminotransferase 22 U/L 23 U/L (ALT/SGPT) Alkaline Phosphatase 72 U/L 74 U/L Albumin 2.2 GM/DL 2.1 GM/DL Test 12/09/16 01:44 Sodium Level 140 MEQ/L Potassium Level 3.1 MEQ/L Chloride Level 103 MEQ/L Carbon Dioxide Level 23.6 MEQ/L Anion Gap 13 MEQ/L Blood Urea Nitrogen 18 MG/DL Creatinine 1.28 MG/DL Estimat Glomerular Filtration 44 ML/MIN Rate Random Glucose 133 MG/DL Calcium Level 7.4 MG/DL Protein Corrected Calcium 8.6 MG/DL Total Bilirubin 1.5 MG/DL Aspartate Amino Transf 82 U/L (AST/SGOT) Alanine Aminotransferase 38 U/L (ALT/SGPT) Alkaline Phosphatase 67 U/L Total Protein 5.0 GM/DL Albumin 1.9 GM/DL Microbiology Date/Time Procedure Status Source Growth 12/07/16 11:37 Aerobic Blood Culture - Preliminary Resulted Blood Peripheral NO GROWTH IN 2 DAYS 12/07/16 11:37 Anaerobic Blood Culture - Preliminary Resulted Blood Peripheral NO GROWTH IN 2 DAYS 12/07/16 11:47 Aerobic Blood Culture - Preliminary Resulted Blood Peripheral NO GROWTH IN 2 DAYS 12/07/16 11:47 Anaerobic Blood Culture - Preliminary Resulted Blood Peripheral NO GROWTH IN 2 DAYS 12/07/16 14:05 Urine Culture - Preliminary Resulted Urine Catheterized Urine 12/07/16 14:05 Legionella Antigen - Final Complete Urine Catheterized Urine PRESUMPTIVE NEGATIVE FOR LEGIONELLA P... 12/07/16 14:05 Streptococcus pneumoniae Antigen (M - Final Complete Urine Catheterized Urine PRESUMPTIVE NEGATIVE FOR STREPTOCOCCU... 3/1/17 21:15 Urine Culture - Final Complete Urine Catheterized Urine NO GROWTH IN 48 HOURS. 12/08/16 16:25 Gram Stain - Final Resulted Cerebral Spinal Fluid Lumbar Puncture 12/08/16 16:25 CSF Culture - Preliminary Resulted Cerebral Spinal Fluid Lumbar Puncture NO GROWTH IN 24 HOURS. 12/08/16 16:25 Fungal Smear Received Cerebral Spinal Fluid Lumbar Puncture Pending 12/08/16 16:25 Fungal Culture Received Cerebral Spinal Fluid Lumbar Puncture Pending 12/08/16 16:25 Acid Fast Stain Received Cerebral Spinal Fluid Lumbar Puncture Pending 12/08/16 16:25 Mycobacterial Culture Received Cerebral Spinal Fluid Lumbar Puncture Pending 12/08/16 17:15 Influenza Types A,B Antigen (MARC OA) - Final Complete Nasal Aspirate NEGATIVE FOR FLU A AND B ANTIGEN.... Imaging Last Impressions Chest X-Ray 12/08/16 0000 Signed Impressions: Service Date/Time: December 04:03 - CONCLUSION: 1. Fairly rapid development of bilateral airspace disease over the last day with small effusions. Differential diagnosis includes edema and infection or aspiration. 2. Endotracheal tube tip is at kaitlynn directed towards the right mainstem bronchus. This should be withdrawn about 3 cm. Clem Ingram MD Head CT 12/07/16 0000 Signed Impressions: Service Date/Time: Wednesday, December 07, 2016 12:10 - CONCLUSION: Negative for acute process.. Gurwinder Hernandez MD FACR Brain MRI 12/07/16 0000 Signed Impressions: Service Date/Time: Wednesday, December 07, 2016 15:03 - CONCLUSION: 1. Negative MRI of the brain. I do not see an etiology for the patient's metastatic disease. 2. I do not see obvious findings of a meningeal carcinomatosis either. Gurwinder Hernandez MD FACR Abdomen/Pelvis CT 12/07/16 0000 Signed Impressions: Service Date/Time: Wednesday, December 07, 2016 16:45 - CONCLUSION: 1. Abnormal lung bases with coarse interstitial changes suggesting fibrosis. 2. Abnormal left kidney. Pyelonephritis cannot be excluded without contrast. 3. The gallbladder appears prominent but unremarkable. 4. I do not see any etiology for the patient's abdominal pain. Gurwinder Hernandez MD FACR Physical Exam GENERAL: Acutely ill appearing CF patient. SKIN: No rashes. Ecchymosis noted. HEAD: Atraumatic. Normocephalic. No temporal or scalp tenderness. EYES: Pupils equal round and reactive. Extraocular motions intact. No scleral icterus. No injection or drainage. ENT: Intubated. Throat without erythema, tonsillar hypertrophy or exudate. Uvula midline. Airway patent. NECK: Trachea midline. Supple, nontender, no meningeal signs. CARDIOVASCULAR: HS audible. RESPIRATORY: Clear to auscultation. Breath sounds equal bilaterally. GASTROINTESTINAL: Abdomen soft,non tender, non distended. MUSCULOSKELETAL: Extremities without clubbing, cyanosis, or edema. No joint tenderness, effusion, or edema noted. No calf tenderness. Negative Homans sign bilaterally. NEUROLOGICAL: Sedated, opens eyes spontaneously, tries to fight vent, flexes her neck, moves all 4 extremities. Psych: could not be assessed. IV line sites with no e.o infection. Port site with no e/o infection Assessment & Plan Remarks Septic Shock with Multiorgan dysfunction syndrome (MODS) Meningitis: bacterial. Aspiration pneumonia. Acute metabolic encephalopathy: Meningitis, Sepsis, SIADH Acute renal failure likely prerenal or sepsis Immune compromised Small cell lung cancer with metastasis Anemia acute onset. 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 Continue IV Acyclovir for now. Follow CSF HSV and also urine output to decide continuation. Does not appear to be viral as neutrophilic. Patient IC so will wait for CSF HSV. Start Oral Diflucan oral lesions ? thrush. Change Flagyl to oral for few more days to cover aspiration PNA. Change Rifampin to oral (cover for resistant strep: deescalate based on Strep susceptibility) Follow cultures Follow clinically. derek SMITH and Dr.Iskandar Hwang patients spouse and brother in room. Time in excess of 40 mins. Critical thinking and decision making. Leena Fletcher MD Dec 09, 2016 13:34
--- NOTE | 2016-12-09 14:02 | PD.ONC.PN ---
Subjective Subjective Remarks Tmax 99.1 overnight. Pt supine in bed, sedated and intubated. Family at bedside. Per RN she was taken off pressors earlier today. Objective Data Date Time Temp Pulse Resp B/P Pulse Ox O2 Delivery O2 Flow Rate FiO2 12/09/16 12:00 76 12/09/16 12:00 40 12/09/16 11:08 95 45 12/09/16 10:00 79 12/09/16 09:14 98 45 12/09/16 08:00 40 12/09/16 06:00 82 12/09/16 04:00 99.1 84 21 134/89 99 12/09/16 04:00 84 12/09/16 04:00 60 12/09/16 02:56 97 70 12/09/16 02:00 86 12/09/16 00:00 99.0 98 21 100/61 95 12/09/16 00:00 98 12/09/16 00:00 40 12/08/16 23:18 96 50 12/08/16 22:00 98 12/08/16 20:00 92 12/08/16 20:00 99.9 92 20 99/68 99 12/08/16 20:00 40 12/08/16 19:28 98 40 12/08/16 18:00 90 12/08/16 16:50 98.0 100 20 87/64 99 12/08/16 16:00 98 12/08/16 16:00 100 100 12/08/16 15:23 98 40 12/08/16 14:00 97 12/09/16 12/09/16 12/09/16 07:00 15:00 23:00 Intake Total 1897 ml Output Total 500 ml Balance 1397 ml Result Diagram: 12/09/16 0144 12/09/16 0144 Laboratory Results Laboratory Tests Test 12/08/16 12/08/16 12/08/16 12/09/16 16:25 21:50 22:30 01:44 CSF Volume (Tube 1) 2.5 ML CSF Supernatant Color (tube 1) CLEAR CSF Gross Blood (Tube 1) 0 CSF WBC (Tube 1) 978 /MM3 CSF RBC (Tube 1) 86 /MM3 CSF Volume (Tube 2) 3.0 ML CSF Supernatant Color (tube 2) CLEAR CSF Volume (Tube 3) 3.0 ML CSF Supernatant Color (tube 3) CLEAR CSF Volume (Tube 4) 3.0 ML CSF Supernatant Color (tube 4) CLEAR CSF Neutrophils 96 % CSF Lymphocytes 1 % CSF Monocytes 3 % CSF Glucose 47 MG/DL CSF Lactic Acid 5.5 MMOL/L CSF Total Protein 179.9 MG/DL Sodium Level 139 MEQ/L 140 MEQ/L Potassium Level 3.3 MEQ/L 3.1 MEQ/L Chloride Level 104 MEQ/L 103 MEQ/L Carbon Dioxide Level 24.5 MEQ/L 23.6 MEQ/L Anion Gap 11 MEQ/L 13 MEQ/L Blood Urea Nitrogen 17 MG/DL 18 MG/DL Creatinine 1.29 MG/DL 1.28 MG/DL Estimat Glomerular Filtration 43 ML/MIN 44 ML/MIN Rate Random Glucose 129 MG/DL 133 MG/DL Calcium Level 7.3 MG/DL 7.4 MG/DL Protein Corrected Calcium 8.7 MG/DL 8.6 MG/DL Total Protein 4.7 GM/DL 5.0 GM/DL D-Dimer Quantitative (PE/DVT) 5.14 MG/L FEU White Blood Count 24.8 TH/MM3 Red Blood Count 3.12 MIL/MM3 Hemoglobin 9.4 GM/DL Hematocrit 27.6 % Mean Corpuscular Volume 88.3 FL Mean Corpuscular Hemoglobin 30.2 PG Mean Corpuscular Hemoglobin 34.2 % Concent Red Cell Distribution Width 17.3 % Platelet Count 58 TH/MM3 Mean Platelet Volume 10.5 FL Neutrophils (%) (Auto) 97.8 % Lymphocytes (%) (Auto) 0.6 % Monocytes (%) (Auto) 1.5 % Eosinophils (%) (Auto) 0.0 % Basophils (%) (Auto) 0.1 % Neutrophils # (Auto) 24.2 TH/MM3 Lymphocytes # (Auto) 0.1 TH/MM3 Monocytes # (Auto) 0.4 TH/MM3 Eosinophils # (Auto) 0.0 TH/MM3 Basophils # (Auto) 0.0 TH/MM3 CBC Comment AUTO DIFF Differential Comment AUTO DIFF CONFIRMED Platelet Estimate LOW Platelet Morphology Comment ENLARGED Target Cells 1+ Perera-[place] Bodies PRESENT Acanthocytes OCC Keratocytes OCC Prothrombin Time 12.1 SEC Prothromb Time International 1.1 RATIO Ratio Fibrinogen 482 mg/dL Total Bilirubin 1.5 MG/DL Aspartate Amino Transf 82 U/L (AST/SGOT) Alanine Aminotransferase 38 U/L (ALT/SGPT) Alkaline Phosphatase 67 U/L Albumin 1.9 GM/DL Test 12/09/16 08:06 Blood Gas Puncture Site RT RADIAL Blood Gas Patient Temperature 98.6 Blood Gas HCO3 22 mmol/L Blood Gas Base Excess -2.5 mmol/L Blood Gas Oxygen Saturation 91 % Arterial Blood pH 7.41 Arterial Blood Partial 35 mmHg Pressure CO2 Arterial Blood Partial 70 mmHg Pressure O2 Arterial Blood Oxygen Content 13.6 Vol % Arterial Blood 1.6 % Carboxyhemoglobin Arterial Blood Methemoglobin 1.2 % Blood Gas Hemoglobin 10.6 G/DL Oxygen Delivery Device VENTILATOR Blood Gas Ventilator Setting AC/20/500/PEEP5 Blood Gas Inspired Oxygen 40 % Culture Results Microbiology Date/Time Procedure Status Source Growth 12/07/16 11:37 Aerobic Blood Culture - Preliminary Resulted Blood Peripheral NO GROWTH IN 2 DAYS 12/07/16 11:37 Anaerobic Blood Culture - Preliminary Resulted Blood Peripheral NO GROWTH IN 2 DAYS 12/07/16 11:47 Aerobic Blood Culture - Preliminary Resulted Blood Peripheral NO GROWTH IN 2 DAYS 12/07/16 11:47 Anaerobic Blood Culture - Preliminary Resulted Blood Peripheral NO GROWTH IN 2 DAYS 12/07/16 14:05 Urine Culture - Preliminary Resulted Urine Catheterized Urine 12/07/16 14:05 Legionella Antigen - Final Complete Urine Catheterized Urine PRESUMPTIVE NEGATIVE FOR LEGIONELLA P... 12/07/16 14:05 Streptococcus pneumoniae Antigen (M - Final Complete Urine Catheterized Urine PRESUMPTIVE NEGATIVE FOR STREPTOCOCCU... 12/07/16 21:15 Urine Culture - Final Complete Urine Catheterized Urine NO GROWTH IN 48 HOURS. 12/08/16 16:25 Gram Stain - Final Resulted Cerebral Spinal Fluid Lumbar Puncture 12/08/16 16:25 CSF Culture - Preliminary Resulted Cerebral Spinal Fluid Lumbar Puncture NO GROWTH IN 24 HOURS. 12/08/16 16:25 Fungal Smear Received Cerebral Spinal Fluid Lumbar Puncture Pending 12/08/16 16:25 Fungal Culture Received Cerebral Spinal Fluid Lumbar Puncture Pending 12/08/16 16:25 Acid Fast Stain Received Cerebral Spinal Fluid Lumbar Puncture Pending 12/08/16 16:25 Mycobacterial Culture Received Cerebral Spinal Fluid Lumbar Puncture Pending 12/08/16 17:15 Influenza Types A,B Antigen (MARCO A) - Final Complete Nasal Aspirate NEGATIVE FOR FLU A AND B ANTIGEN.... Imaging Studies Last 24 hours Impressions Chest X-Ray 12/09/16 0000 Signed Impressions: Service Date/Time: Friday, December 09, 2016 10:12 - CONCLUSION: 1. Endotracheal tube 8 mm above the kaitlynn and could be retracted 3 cm. 2. Slight worsening airspace disease greater in the right lung. Chaparro Baig MD Administered Medications Medications (Trade) Dose Ordered Sig/Ermias Route PRN Reason Start Time Stop Time Status Last Admin Dose Admin Pantoprazole Sodium (Protonix Inj) 40 mg DAILY IV 12/07/16 16:15 12/09/16 08:19 Chlorhexidine Gluconate 3 pack 3 pack Taper DAILY@04 [facility] 12/08/16 04:00 12/04/17 03:59 12/09/16 05:26 Vancomycin HCl/ Sodium Chloride (Vancomycin Inj/ NS 250 ml Inj) 257.5 ml @ 257.5 mls/ hr Q24H IV 12/08/16 16:00 12/08/16 16:00 Insulin Human Regular (NovoLIN R SUPPLEMENTAL SCALE) 1 Q6H SQ 12/07/16 18:00 12/09/16 05:25 Fentanyl Citrate 50 mcg 50 mcg Q1H PRN IV PUSH PAIN 5-10 12/07/16 21:45 12/08/16 02:00 Phenylephrine HCl 40 mg/Dextrose 500 ml @ 0 mls/hr TITRATE IV 12/08/16 02:00 12/09/16 05:11 Potassium Chloride 100 ml @ 50 mls/hr Q2H PRN IV For Potassium 2.8 - 3.2 mEq/L 12/08/16 01:00 12/09/16 05:09 Magnesium Sulfate/ Sodium Chloride (Magnesium Sulfate Inj/NS Inj) 100 ml @ 50 mls/hr UNSCH PRN IV For Magnesium 1.2 - 1.6 mg/dL 12/08/16 01:00 12/08/16 02:37 Acetaminophen (Tylenol 650 Mg/ 20 ml Liq) 650 mg Q4H PRN TUBE TEMP >101 12/08/16 03:30 12/08/16 04:07 Chlorhexidine Gluconate 15 ml 15 ml BID@08,20 MT 12/08/16 08:00 12/09/16 08:00 Acyclovir Sodium 526 mg/Sodium Chloride 100 ml @ 100 mls/hr Q8H IV 12/08/16 17:00 12/09/16 08:19 Ceftriaxone Sodium 2000 mg/ Sodium Chloride 100 ml @ 200 mls/hr Q12H IV 12/08/16 20:00 12/09/16 08:23 Levetriacetam 1000 mg/Sodium Chloride 110 ml @ 420 mls/hr Q12H IV 12/09/16 03:00 12/09/16 03:06 Ampicillin Sodium/ Sodium Chloride (Ampicillin Inj/ NS Inj) 100 ml @ 400 mls/hr Q4H IV 12/08/16 20:00 12/09/16 12:43 Dexamethasone Sodium Phosphate (Decadron Inj) 10 mg Q6H IV PUSH 12/09/16 09:00 12/09/16 08:19 Metronidazole (Flagyl) 500 mg Q8HR PO 12/09/16 14:00 12/09/16 12:43 Rifampin (Rifampin) 300 mg Q12HR PO 12/09/16 09:00 12/09/16 08:24 Fluconazole (Diflucan) 100 mg DAILY PO 12/09/16 11:00 12/09/16 12:43 Objective Remarks GENERAL: Supine female, intubated, sedated. SKIN: Warm and dry. HEAD: Normocephalic. EYES: No injection or drainage. NECK: Supple, trachea midline. CARDIOVASCULAR: +S1/S2 RESPIRATORY: Anterior butler clear. on mechanical ventilation. GASTROINTESTINAL: Abdomen soft, nondistended. EXTREMITIES: No cyanosis NEUROLOGICAL: Intubated, sedated Assessment/Plan Problem List: (1) Sepsis Status: Acute Plan: -- CSF gram stain shows no growth -- All other CSF micro pending. --BC no growth --on multiple abx as above, per ID. --U/A neg --CXR: shows bilateral airspace disease. last Neulasta shot was given on 11/16. 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 (5) Acute renal failure Status: Acute Plan: --on IVF (6) Elevated LFTs Status: Acute Plan: --Abnormal LFTs likely secondary to acute illness. ++does have metastatic disease to the liver. Assessment 51y/o admitted with hypotension, lethargy, leukocytosis, now critically ill in I[facility], intubated and on pressor support h/o metastatic SCLC Plan 1. V/Q scan to rule out pulmonary embolism. 2. Monitor CBC, coags. Transfuse as necessary. 3. Await results of CSF micro, VQ scan. 4. Supportive care. Attending Statement The exam, history, and the medical decision-making described in the above note were completed with the assistance of the mid-level provider. I reviewed and agree with the findings presented. I attest that I had a [id number] encounter with the patient on the same day, and personally performed and documented my assessment and findings in the medical record. remains on mechanical ventilation- will obtain V/Q scan to r/o PE. Chest X-ray ordered earlier --worsening airspace disease r lung Leukocytosis improving suspected meningitis. on ABX Anemia --stable Thrombocytopenia 2/2 to chemotherapy and acute illness no blood products today Discussed with Dr. Fletcher discussed with patient's family Time spent: 30 minutes Problem Qualifiers (1) Sepsis: Qualified Code: A41.9 - Sepsis, due to unspecified organism Saba Banegas Dec 09, 2016 14:02 Aakash Gama MD Dec 09, 2016 23:44
--- NOTE | 2016-12-09 15:47 | RADRPT ---
EXAM DATE/TIME: 12/09/2016 14:54 [facility] COMPARISON: No previous studies available for comparison. INDICATIONS : Embolus. DOSE: 8.6 mCi Tc99m MAA IV 0.84 mCi Tc99m DTPA aerosol MEDICAL HISTORY : Carcinoma, lung. Chronic obstructive pulmonary disease. Asthma. SURGICAL HISTORY : Tubal ligation. Hysterectomy. Breast augmentation. ENCOUNTER: Initial ACUITY: 1 day PAIN SCALE: Non-responsive LOCATION: Chest. TECHNIQUE: Following five minutes of tidal breathing of DTPA aerosol, planar images of the lungs were performed in eight projections. The patient was then injected with MAA, and eight-view perfusion scan was perf ormed. FINDINGS: There is an inhomogeneous pattern of aerosol delivery to the periphery of both lungs. No focal venti latory defects are seen. The perfusion lung scan demonstrates a homogenous pattern of uptake in both lungs. No segmental or s ubsegmental defects are seen. CONCLUSION: Low probability for pulmonary embolism. Chaparro Baig MD on December 09, 2016 at 15:45 Board Certified Radiologist. This report was verified electronically.
[2016-12-09] MEDS: VANCOMYCIN INJ 750 MG in SODIUM CHLOR 0.9% 250 ML INJ 250 ML IV SCH (16:41)
[2016-12-09] MEDS: PROPOFOL 1000 MG/100 ML IV SCH (21:42)
[2016-12-10] VITALS (18 sets, daily range): BP systolic 107–145; BP diastolic 70–91; PULSE 78–135; RESP 21–31; TEMP 97.6–98.9; O2SAT 91–99
[2016-12-10] MEDS: AMPICILLIN INJ 2,000 MG in SODIUM CHLORIDE 0.9% INJ 100 ML IV SCH ×4 (01:33→11:17)
[2016-12-10] MEDS: ACYCLOVIR IV SCH ×2 (01:33→08:48)
[2016-12-10] MEDS: SODIUM CHLORIDE 0.9% IV SCH ×2 (01:33→08:48)
[2016-12-10] MEDS: levETIRAcetam INJ 1,000 MG in SODIUM CHLORIDE 0.9% INJ 100 ML IV SCH ×2 (03:18→13:54)
[2016-12-10] MEDS: DEXAMETHASONE SOD PHOS 4 MG/ML VIAL IV PUSH SCH ×4 (03:18→20:39)
[2016-12-10] MEDS: PROPOFOL 1000 MG/100 ML IV SCH ×3 (03:41→20:36)
[2016-12-10] MEDS: RESP: ALBUTEROL 2.5 MG/IPRATROPIUM 0.5 MG NEB (SCH) INH ×5 (03:46→20:50)
[2016-12-10] MEDS: metroNIDAZOLE 500 MG TAB PO SCH ×3 (05:42→20:41)
[2016-12-10] MEDS: CHLORHEXIDINE GLUCONATE 2 % 1 PACK (2 CLOTHS) TOP SCH (05:43)
[2016-12-10 05:54] LABS: AUTOMATED NEUTROPHIL # 17.3 TH/MM3 (1.8-7.7); BASOPHIL % 0.1 % (0.0-2.0); HEMATOCRIT 28.3 % (35.0-46.0); LYMPH % 10.6 % (9.0-44.0); LYMPHOCYTE # 2.1 TH/MM3 (1.0-4.8); MEAN CELL VOLUME 87.8 FL (80.0-100.0); MEAN CORPUSCULAR HEMOGLOBIN 30.8 PG (27.0-34.0); MEAN CORPUSCULAR HGB CONC 35.1 % (32.0-36.0); MONO % 2.2 % (0.0-8.0); NEUT % 87.1 % (16.0-70.0); PLATELET COUNT 30 TH/MM3 (150-450); RED BLOOD COUNT 3.22 MIL/MM3 (4.00-5.30); RED CELL DISTRIBUTION WIDTH 17.2 % (11.6-17.2); WHITE BLOOD COUNT 19.9 TH/MM3 (4.0-11.0)
[2016-12-10] MEDS: INSULIN NovoLIN REGULAR SUPPLEMENTAL SCALE SQ SCH ×5 (06:00→23:59)
[2016-12-10 06:12] LABS: ALT (GPT) 28 U/L (10-53); AST (GOT) 46 U/L (15-37); BICARBONATE 23.1 MEQ/L (21.0-32.0); BLOOD UREA NITROGEN 22 MG/DL (7-18); CHLORIDE 105 MEQ/L (98-107); GLOMERULAR FILTRATION RATE 39 ML/MIN (>89); MAGNESIUM 2.1 MG/DL (1.5-2.5); POTASSIUM 3.3 MEQ/L (3.5-5.1); SODIUM (NA) 141 MEQ/L (136-145)
[2016-12-10 06:13] LABS: ANION GAP 13 MEQ/L (5-15)
[2016-12-10 06:17] LABS: ALKALINE PHOSPHATASE 84 U/L (45-117); TOTAL BILIRUBIN ADULT 1.2 MG/DL (0.2-1.0)
[2016-12-10 06:20] LABS: HEMO FLAGS AUTO DIFF
[2016-12-10] MEDS ORDERED: BUMETANIDE INJ 1 MG/4 ML VIAL IV PUSH ONE (07:15)
[2016-12-10] MEDS ORDERED: METOCLOPRAMIDE HCL 10 MG/2 ML VIAL IV PUSH PRN (07:15)
--- NOTE | 2016-12-10 07:22 | HHI.CCPN ---
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 She presented to [facility] ED with altered mental status, lethargy and fever for the past couple days. Her last chemotherapy was two days ago however when the patient went to receive another session yesterday it was not given due to her condition and instead she was given IV hydration. On arrival to the ED, the patient was tachycardic with a heart rate of 110-120s and initially she was hypotensive with a systolic blood pressure 80s-90s. She also was found to have a temperature of 100.7 rectally. In the ED she was given 2 liter boluses of normal saline with improvement of her blood pressure to 141/ 86. Her laboratory data showed mild acute kidney injury with a creatinine level of 1.31 and hyponatremia with a sodium level of 131. In addition, the patient had significant leukocytosis with a WBC of 71.4 associated with bandemia 28. Also, her hemoglobin was 6.8 with hematocrit of 20.2. Two units of packed RBCs have been ordered by the ED physician. The patient received a Neulasta injection post her chemotherapy. Due to her altered mental status, a CT scan of the brain was obtained which was negative for acute process. The patient also had MRI of the brain which was negative for any metastatic disease. A chest x-ray in the ED showed Infusaport in good position and mild interstitial prominence. The patient received Vancomycin and cefepime in the ED , and a CT scan of the abdomen and pelvis has been ordered. Overall, history is limited as the patient is a poor historian. However, she is not complaining of any pain. 3/ Last night patient became tachycardic, hypoxic and worsening mental status she was subsequently intubated and placed on mechanical ventilation. She received additional 2L NS for hypotension and started on Neosyn 50 mics. s/p transfusion 2u PRBC yesterday for Hgb 6.8 her Hgb 11.2 this morning. 12/09 Patient remains sedated with Diprivan and intubated. On Neosyn 40 mics and bicarb drip. T:99.9 last night WBC trending down 24 today from 55. s/p LP showed clear CSF, WBC 978, TP:179 , nl glc 12/10 Patient is sedated with Diprivan and intubated. Off Neosyn. Afebrile. V/Q scaln yesterday low prob. BC from 12/07 GNR. Objective Vital Signs Date Time Temp Pulse Resp B/P Pulse Ox O2 Delivery O2 Flow Rate FiO2 12/10/16 04:00 40 12/10/16 03:46 95 12/09/16 18:00 80 12/09/16 16:00 97.5 20 95/66 12/07/16 21:38 Partial Rebreather 12/07/16 18:30 2 Intake and Output 12/09/16 12/09/16 12/10/16 08:00 16:00 00:00 Intake Total 1897 ml 980 ml 760 ml Output Total 500 ml 400 ml 650 ml Balance 1397 ml 580 ml 110 ml Result Diagram: 12/10/16 0416 12/10/16 0416 Other Results Laboratory Tests Test 12/09/16 12/10/16 08:06 04:16 Blood Gas Puncture Site RT RADIAL Blood Gas Patient Temperature 98.6 Blood Gas HCO3 22 mmol/L Blood Gas Base Excess -2.5 mmol/L Blood Gas Oxygen Saturation 91 % Arterial Blood pH 7.41 Arterial Blood Partial 35 mmHg Pressure CO2 Arterial Blood Partial 70 mmHg Pressure O2 Arterial Blood Oxygen Content 13.6 Vol % Arterial Blood 1.6 % Carboxyhemoglobin Arterial Blood Methemoglobin 1.2 % Blood Gas Hemoglobin 10.6 G/DL Oxygen Delivery Device VENTILATOR Blood Gas Ventilator Setting AC/20/500/PEEP5 Blood Gas Inspired Oxygen 40 % White Blood Count 19.9 TH/MM3 Red Blood Count 3.22 MIL/MM3 Hemoglobin 9.9 GM/DL Hematocrit 28.3 % Mean Corpuscular Volume 87.8 FL Mean Corpuscular Hemoglobin 30.8 PG Mean Corpuscular Hemoglobin 35.1 % Concent Red Cell Distribution Width 17.2 % Platelet Count 30 TH/MM3 Mean Platelet Volume 11.5 FL Neutrophils (%) (Auto) 87.1 % Lymphocytes (%) (Auto) 10.6 % Monocytes (%) (Auto) 2.2 % Eosinophils (%) (Auto) 0.0 % Basophils (%) (Auto) 0.1 % Neutrophils # (Auto) 17.3 TH/MM3 Lymphocytes # (Auto) 2.1 TH/MM3 Monocytes # (Auto) 0.4 TH/MM3 Eosinophils # (Auto) 0.0 TH/MM3 Basophils # (Auto) 0.0 TH/MM3 CBC Comment AUTO DIFF Sodium Level 141 MEQ/L Potassium Level 3.3 MEQ/L Chloride Level 105 MEQ/L Carbon Dioxide Level 23.1 MEQ/L Anion Gap 13 MEQ/L Blood Urea Nitrogen 22 MG/DL Creatinine 1.43 MG/DL Estimat Glomerular Filtration 39 ML/MIN Rate Random Glucose 135 MG/DL Calcium Level 8.0 MG/DL Phosphorus Level 2.9 MG/DL Magnesium Level 2.1 MG/DL Total Bilirubin 1.2 MG/DL Aspartate Amino Transf 46 U/L (AST/SGOT) Alanine Aminotransferase 28 U/L (ALT/SGPT) Alkaline Phosphatase 84 U/L Total Protein 5.4 GM/DL Albumin 1.9 GM/DL Imaging Last Impressions Lung Scan-V Nuclear Medicine 12/09/16 Signed Impressions: Service Date/Time: Friday, December 09, 2016 14:54 - CONCLUSION: Low probability for pulmonary embolism. Chaparro Baig MD Chest X-Ray 12/09/16 Signed Impressions: Service Date/Time: Friday, December 09, 2016 10:12 - CONCLUSION: 1. Endotracheal tube 8 mm above the kaitlynn and could be retracted 3 cm. 2. Slight worsening airspace disease greater in the right lung. Chaparro Baig MD Lumbar Puncture Fluoroscopy 12/08/16 Signed Impressions: Service Date/Time: December 16:10 - CONCLUSION: Uncomplicated fluoroscopically guided lumbar puncture with pressures as above. Dustin Hand MD Lower Extremity Ultrasound 12/08/16 Signed Impressions: Service Date/Time: December 14:46 - CONCLUSION: Normal examination. Jamel Stevenson MD Abdomen Ultrasound 12/08/16 0000 Signed Impressions: Service Date/Time: December 14:15 - CONCLUSION: 1. No evidence of abdominal mass 2. Echogenic kidneys bilaterally compatible with medical renal disease. 3. Small bilateral effusions Dustin Hand MD Head CT 12/07/16 0000 Signed Impressions: Service Date/Time: Wednesday, December 07, 2016 12:10 - CONCLUSION: Negative for acute process.. Gurwinder Hernandez MD FACR Brain MRI 12/07/16 0000 Signed Impressions: Service Date/Time: Wednesday, December 07, 2016 15:03 - CONCLUSION: 1. Negative MRI of the brain. I do not see an etiology for the patient's metastatic disease. 2. I do not see obvious findings of a meningeal carcinomatosis either. Gurwinder Hernandez MD FACR Abdomen/Pelvis CT 12/07/16 0000 Signed Impressions: Service Date/Time: Wednesday, December 07, 2016 16:45 - CONCLUSION: 1. Abnormal lung bases with coarse interstitial changes suggesting fibrosis. 2. Abnormal left kidney. Pyelonephritis cannot be excluded without contrast. 3. The gallbladder appears prominent but unremarkable. 4. I do not see any etiology for the patient's abdominal pain. Gurwinder Hernandez MD FACR Objective Remarks GENERAL: Patient is 51 yo critically ill appearing intubated and sedated SKIN: Warm and dry. HEAD: Normocephalic. EYES: No scleral icterus. No injection or drainage. NECK: Supple, trachea midline. No JVD or lymphadenopathy. Orally intubated CARDIOVASCULAR: Tachycardic without murmurs, gallops, or rubs. RESPIRATORY: Breath sounds equal bilaterally. No accessory muscle use. GASTROINTESTINAL: Abdomen soft, mild tenderness on palpation. MUSCULOSKELETAL: No cyanosis, or edema. Neuro: Sedated, intubated A/P Assessment and Plan 1. VDRF 2. Leukocytosis ..trending down 3. Rule out aspiration pneumonia. 4. Anemia, thrombocytopenia r/o DIC 5. Acute kidney injury. 6. Encephalopathy 7 Bacterial Meningitis 8. Small cell lung cancer status post chemotherapy 9. Chronic hyponatremia. 10. 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 11 Hyperglycemia 12 Elevated AST 13. Hypertension. 14. GERD. 15. History of bronchial asthma. Plan Neuro: On Diprivan infusion for sedation Monitor neuro status closely and avoid sedatives. CT brain and MRI brain negative for acute process EEG showed diffuse encephalopathy- on Keppra IV Q12, Decadron 10mg Q6 s/p LP 12/08 - clear CSF, WBC 978, TP:179, nl Glc, 96 Neutrophils. Continue with abx, Decadron 10mg Q6 Neuro: Dr. Howe Pulm: Continue with vent support and maintain sats above 92%. Bronchodilators , ICU vent bundle. SBT as lazaro V/Q scan- Low prob PE CV: Off Neosyn monitor HR and BP and maintain MAP > 65 mmHg. Lactic acid: 1.8 Place on Lopressor 12.5mg BID Echo showed diffuse hypokinesis EF 25-30% : Monitor renal function, Is and Os and electrolyte replacement per protocol. Given 4L crystalloids since admission. Will need K replacement today. CT abd/pelvis : Pyelonephritis could not be excluded . US abdomen: No masses, medical renal disease Diurese with Bumex 1mg x1 GI: On Protonix 40 mg IV daily for GI prophylaxis. Resume TF-Glucerna 1.5 with goal rate 45ml/hr Place on Reglan 5mg Q8 PRN high residuals. ID: Continue with abx per ID ( Ampicillin, Vanco, Ceftriaxone, Acyclovir, Flagyl , Diflucan, Rifampin) Strep pneumonia and Legionella urinary antigen negative. s/p LP 12/07, follow up on LP results- NGTD BC from 12/07: GNR. Recheck BC x 2 sets today. WBC trending down Heme: Monitor CBC, coags, s/p transfusion 2 units of PRBC on arrival. Heme-Onc is following- Dr. Gama. Endo: Sliding scale insulin with Accu-Cheks for glycemic control. GI prophylaxis with Protonix 40 mg daily and DVT prophylaxis with SCDs. Not on chemical anticoagulation prophylaxis due to anemia requiring blood transfusions and thrombocytopenia 3/2 Doppler US LE negative for DVT 3 V/Q scan low prob PE Lines: Right Infuse A port CCT 30 mins . Ryan Nunn MD Dec 10, 2016 07:22
[2016-12-10] MEDS: CHLORHEXIDINE 0.12% (ORAL KIT) 15 ML CUP MT SCH ×2 (07:41→20:41)
[2016-12-10 08:35] LABS: ACANTHOCYTES OCC (NORMAL); BURR CELLS 1+ (NORMAL); PLATELET ESTIMATE SMEAR LOW (NORMAL); PLATELET MORPHOLOGY ENLARGED (NORMAL); SCAN/DIFF AUTO DIFF CONFIRMED; TARGET CELLS 1+ (NORMAL)
[2016-12-10] MEDS: cefTRIAXone INJ 2,000 MG in SODIUM CHLORIDE 0.9% INJ 100 ML IV SCH (08:48)
[2016-12-10] MEDS: PANTOPRAZOLE SODIUM 40 MG VIAL IV SCH (08:49)
[2016-12-10] MEDS: RIFAMPIN 150 MG CAP PO SCH ×2 (08:50→20:40)
[2016-12-10] MEDS: FLUCONAZOLE 100 MG TAB PO SCH (08:50)
[2016-12-10] MEDS: METOPROLOL TARTRATE 25 MG TAB PO SCH ×2 (08:51→20:40)
--- NOTE | 2016-12-10 10:52 | PD.ONC.PN ---
Subjective Subjective Remarks Afebrile overnight. Pt on CPAP trials. Off vasopressors. Per RN she has not had any bleeding. Objective Data Date Time Temp Pulse Resp B/P Pulse Ox O2 Delivery O2 Flow Rate FiO2 12/10/16 10:00 99 12/10/16 08:04 94 45 12/10/16 08:00 99 12/10/16 08:00 45 12/10/16 08:00 98.6 114 29 141/90 91 12/10/16 06:45 21 12/10/16 06:00 117 12/10/16 04:00 40 12/10/16 04:00 98.1 125 21 132/88 95 12/10/16 04:00 125 12/10/16 03:46 95 55 12/10/16 02:00 116 12/10/16 01:28 99 40 12/10/16 00:00 78 12/10/16 00:00 97.6 78 21 107/73 96 12/10/16 00:00 40 12/09/16 22:11 95 40 12/09/16 22:00 103 12/09/16 20:00 97.8 74 21 97/63 96 12/09/16 20:00 40 12/09/16 20:00 74 12/09/16 19:41 97 40 12/09/16 18:00 80 12/09/16 16:08 93 45 12/09/16 16:00 97.5 80 20 95/66 95 12/09/16 16:00 80 12/09/16 16:00 40 12/09/16 14:40 100 100 12/09/16 14:00 90 12/09/16 12:00 76 12/09/16 12:00 97.6 79 20 116/79 98 12/09/16 12:00 40 12/09/16 11:08 95 45 12/10/16 12/10/16 12/10/16 07:00 15:00 23:00 Intake Total 720 ml Output Total 300 ml Balance 420 ml Result Diagram: 12/10/16 0416 12/10/16 0416 Laboratory Results Laboratory Tests Test 12/10/16 04:16 White Blood Count 19.9 TH/MM3 Red Blood Count 3.22 MIL/MM3 Hemoglobin 9.9 GM/DL Hematocrit 28.3 % Mean Corpuscular Volume 87.8 FL Mean Corpuscular Hemoglobin 30.8 PG Mean Corpuscular Hemoglobin 35.1 % Concent Red Cell Distribution Width 17.2 % Platelet Count 30 TH/MM3 Mean Platelet Volume 11.5 FL Neutrophils (%) (Auto) 87.1 % Lymphocytes (%) (Auto) 10.6 % Monocytes (%) (Auto) 2.2 % Eosinophils (%) (Auto) 0.0 % Basophils (%) (Auto) 0.1 % Neutrophils # (Auto) 17.3 TH/MM3 Lymphocytes # (Auto) 2.1 TH/MM3 Monocytes # (Auto) 0.4 TH/MM3 Eosinophils # (Auto) 0.0 TH/MM3 Basophils # (Auto) 0.0 TH/MM3 CBC Comment AUTO DIFF Differential Comment AUTO DIFF CONFIRMED Platelet Estimate LOW Platelet Morphology Comment ENLARGED Target Cells 1+ Virgil Cells 1+ Acanthocytes OCC Sodium Level 141 MEQ/L Potassium Level 3.3 MEQ/L Chloride Level 105 MEQ/L Carbon Dioxide Level 23.1 MEQ/L Anion Gap 13 MEQ/L Blood Urea Nitrogen 22 MG/DL Creatinine 1.43 MG/DL Estimat Glomerular Filtration 39 ML/MIN Rate Random Glucose 135 MG/DL Calcium Level 8.0 MG/DL Phosphorus Level 2.9 MG/DL Magnesium Level 2.1 MG/DL Total Bilirubin 1.2 MG/DL Aspartate Amino Transf 46 U/L (AST/SGOT) Alanine Aminotransferase 28 U/L (ALT/SGPT) Alkaline Phosphatase 84 U/L Total Protein 5.4 GM/DL Albumin 1.9 GM/DL Culture Results Microbiology Date/Time Procedure Status Source Growth 12/07/16 11:37 Aerobic Blood Culture - Preliminary Resulted Blood Peripheral 12/07/16 11:37 Anaerobic Blood Culture - Preliminary Resulted Blood Peripheral NO GROWTH IN 2 DAYS 12/07/16 11:47 Aerobic Blood Culture - Preliminary Resulted Blood Peripheral Gram Negative David 12/07/16 11:47 Anaerobic Blood Culture - Preliminary Resulted Blood Peripheral NO GROWTH IN 2 DAYS 12/07/16 14:05 Urine Culture - Final Complete Urine Catheterized Urine 12/07/16 14:05 Legionella Antigen - Final Complete Urine Catheterized Urine PRESUMPTIVE NEGATIVE FOR LEGIONELLA P... 12/07/16 14:05 Streptococcus pneumoniae Antigen (M - Final Complete Urine Catheterized Urine PRESUMPTIVE NEGATIVE FOR STREPTOCOCCU... 12/07/16 21:15 Urine Culture - Final Complete Urine Catheterized Urine NO GROWTH IN 48 HOURS. 12/08/16 16:25 Gram Stain - Final Resulted Cerebral Spinal Fluid Lumbar Puncture 12/08/16 16:25 CSF Culture - Preliminary Resulted Cerebral Spinal Fluid Lumbar Puncture NO GROWTH IN 48 HOURS. 12/08/16 16:25 Fungal Smear Received Cerebral Spinal Fluid Lumbar Puncture Pending 12/08/16 16:25 Fungal Culture Received Cerebral Spinal Fluid Lumbar Puncture Pending 12/08/16 16:25 Acid Fast Stain - Final Resulted Cerebral Spinal Fluid Lumbar Puncture NO ACID FAST BACILLI SEEN 12/08/16 16:25 Mycobacterial Culture Resulted Cerebral Spinal Fluid Lumbar Puncture Pending 12/08/16 17:15 Influenza Types A,B Antigen (MARCO A) - Final Complete Nasal Aspirate NEGATIVE FOR FLU A AND B ANTIGEN.... 12/10/16 08:44 Aerobic Blood Culture Received Blood Peripheral Pending 12/10/16 08:44 Anaerobic Blood Culture Received Blood Peripheral Pending Administered Medications Medications (Trade) Dose Ordered Sig/Ermias Route PRN Reason Start Time Stop Time Status Last Admin Dose Admin Pantoprazole Sodium (Protonix Inj) 40 mg DAILY IV 12/07/16 16:15 12/10/16 08:49 Chlorhexidine Gluconate 3 pack 3 pack Taper DAILY@04 TOP 12/08/16 04:00 12/04/17 03:59 12/10/16 05:43 Vancomycin HCl/ Sodium Chloride (Vancomycin Inj/ NS 250 ml Inj) 257.5 ml @ 257.5 mls/ hr Q24H IV 12/08/16 16:00 12/09/16 16:41 Insulin Human Regular (NovoLIN R SUPPLEMENTAL SCALE) 1 Q6H SQ 12/07/16 18:00 12/09/16 05:25 Fentanyl Citrate 50 mcg 50 mcg Q1H PRN IV PUSH PAIN 5-10 12/07/16 21:45 12/10/16 05:42 Phenylephrine HCl 40 mg/Dextrose 500 ml @ 0 mls/hr TITRATE IV 12/08/16 02:00 12/09/16 05:11 Potassium Chloride 100 ml @ 50 mls/hr Q2H PRN IV For Potassium 2.8 - 3.2 mEq/L 12/08/16 01:00 12/09/16 05:09 Magnesium Sulfate/ Sodium Chloride (Magnesium Sulfate Inj/NS Inj) 100 ml @ 50 mls/hr UNSCH PRN IV For Magnesium 1.2 - 1.6 mg/dL 12/08/16 01:00 12/08/16 02:37 Acetaminophen (Tylenol 650 Mg/ 20 ml Liq) 650 mg Q4H PRN TUBE TEMP >101 12/08/16 03:30 12/08/16 04:07 Chlorhexidine Gluconate 15 ml 15 ml BID@08,20 MT 12/08/16 08:00 12/10/16 07:41 Acyclovir Sodium 526 mg/Sodium Chloride 100 ml @ 100 mls/hr Q8H IV 12/08/16 17:00 12/10/16 08:48 Ceftriaxone Sodium 2000 mg/ Sodium Chloride 100 ml @ 200 mls/hr Q12H IV 12/08/16 20:00 12/10/16 08:48 Levetriacetam 1000 mg/Sodium Chloride 110 ml @ 420 mls/hr Q12H IV 12/09/16 03:00 12/10/16 03:18 Ampicillin Sodium 2000 mg/Sodium Chloride 100 ml @ 400 mls/hr Q4H IV 12/08/16 20:00 12/10/16 08:48 Propofol (Diprivan 1000 Mg/100ml Inj) 100 ml @ 0 mls/hr TITRATE IV 12/09/16 00:45 12/10/16 09:18 Dexamethasone Sodium Phosphate (Decadron Inj) 10 mg Q6H IV PUSH 12/09/16 09:00 12/10/16 08:52 Metronidazole (Flagyl) 500 mg Q8HR PO 12/09/16 14:00 12/10/16 05:42 Rifampin (Rifampin) 300 mg Q12HR PO 12/09/16 09:00 12/10/16 08:50 Fluconazole (Diflucan) 100 mg DAILY PO 12/09/16 11:00 12/10/16 08:50 Metoprolol Tartrate (Lopressor) 12.5 mg Q12HR PO 12/10/16 09:00 12/10/16 08:51 Objective Remarks GENERAL: Supine female, intubated, sedated. SKIN: Warm and dry. HEAD: Normocephalic. EYES: No injection or drainage. NECK: Supple, trachea midline. CARDIOVASCULAR: +S1/S2 RESPIRATORY: Scattered rhonchi. Mechanically ventilated. GASTROINTESTINAL: Abdomen soft, nondistended. EXTREMITIES: SCD's to BLE. Bilateral tips of toes erythematous. NEUROLOGICAL: Intubated, sedated Assessment/Plan Problem List: (1) Sepsis Status: Acute Plan: -- Likely bacterial meningitis -- CSF gram stain shows no growth -- All other CSF micro pending. --on multiple abx as above, per ID. --U/A neg --CXR: shows bilateral airspace disease. last Neulasta shot was given on 11/16. (2) SCLC (small cell lung carcinoma) Status: Acute Plan: --s/p Carboplatin/MD DO [facility], last chemo given in early November (3) Normocytic anemia Status: Acute Plan: --transfuse as needed --monitor for bleeding (4) Thrombocytopenia Status: Acute Plan: --likely consumptive due to acute illness. -- Fibrinogen OK. -- Transfuse for bleeding or platelets less than 15K. (5) Acute renal failure Status: Acute Plan: --on IVF (6) Elevated LFTs Status: Acute Plan: --Abnormal LFTs likely secondary to acute illness. ++does have metastatic disease to the liver. Assessment 51y/o admitted with hypotension, lethargy, leukocytosis, now critically ill in [facility], intubated and on pressor support h/o metastatic SCLC Plan 1. Low likelihood of PE from VQ scan results. 2. Thrombocytopenia. Will monitor. Transfuse for bleeding or platelets less than 15k. 3. ID, Neurology on board for bacterial meningitis. 4. Once acute issues have resolved she will followup with Dr. Gama in clinic. Attending Statement The exam, history, and the medical decision-making described in the above note were completed with the assistance of the mid-level provider. I reviewed and agree with the findings presented. I attest that I had a [id number] encounter with the patient on the same day, and personally performed and documented my assessment and findings in the medical record. Patient seen and examined. Earlier today she spent 4 hours on CPAP before she began to develop tachypnea and tachycardia. She is now back on AC ventilator settings. is at bedside. She appears to be resting comfortably, spontaneous movements of the upper or lower tremor is noted. She also seems to withdraw and showed discomfort in her abdomen was palpated. Clinically appears to be stable, continue empiric antibiotics. Continue to await improvement from her respiratory standpoint and hopeful extubation. Management of metastatic small cell carcinoma of the lung to resume once or critical and acute issues have resolved. Problem Qualifiers (1) Sepsis: Qualified Code: A41.9 - Sepsis, due to unspecified organism Saba Banegas Dec 10, 2016 10:52 Christopher Chavez MD Dec 10, 2016 16:22
[2016-12-10 12:25] LABS: HSV 1,PCR Negative (Negative)
[2016-12-10] MEDS ORDERED: PHARMACY ORDERED LAB XX ONE (15:45)
--- NOTE | 2016-12-10 15:45 | HHI.IDPN ---
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 Patient undergoes chemotherapy last session on Nov 11 with last dose of Neulesta on Nov 11 (per Oncology). Admitted with severe sepsis. Growing GNB from BC from 12/07 2 Off Neosyn. Afebrile Antibiotics Vanco IV Ceftriaxone IV Ampicillin IV Rifampin fluconazole flagyl Lines Line sites with no e.o infection Past Medical History reviewed Allergies: Coded Allergies: Lipitor (Verified Adverse Reaction, Severe, Myalgia, 12/07/16) Codeine (Verified Adverse Reaction, Intermediate, Sedation, 12/07/16) Uncoded Allergies: SEASONAL ALLERGIES (Allergy, Mild, 03/13/08) estroven (Adverse Reaction, Intermediate, raised BP, 06/12/15) Objective . Vital Signs Date Time Temp Pulse Resp B/P Pulse Ox O2 Delivery O2 Flow Rate FiO2 12/10/16 14:54 94 50 12/10/16 14:00 98 12/10/16 12:00 40 12/10/16 12:00 98.9 135 31 145/91 91 12/10/16 12:00 109 12/10/16 11:56 92 50 12/10/16 10:00 109 12/10/16 08:04 94 45 12/10/16 08:00 99 12/10/16 08:00 45 12/10/16 08:00 98.6 114 29 141/90 91 12/10/16 06:45 21 12/10/16 06:00 117 12/10/16 04:00 40 12/10/16 04:00 98.1 125 21 132/88 95 12/10/16 04:00 125 12/10/16 03:46 95 55 12/10/16 02:00 116 12/10/16 01:28 99 40 12/10/16 00:00 78 12/10/16 00:00 97.6 78 21 107/73 96 12/10/16 00:00 40 12/09/16 22:11 95 40 12/09/16 22:00 103 12/09/16 20:00 97.8 74 21 97/63 96 12/09/16 20:00 40 12/09/16 20:00 74 12/09/16 19:41 97 40 12/09/16 18:00 80 12/09/16 16:08 93 45 12/09/16 16:00 97.5 80 20 95/66 95 12/09/16 16:00 80 12/09/16 16:00 40 12/09/16 12/09/16 12/10/16 15:00 23:00 07:00 Intake Total 980 ml 760 ml 720 ml Output Total 400 ml 650 ml 300 ml Balance 580 ml 110 ml 420 ml Intake Oral 0 ml 0 ml 0 ml IV Total 980 ml 760 ml 720 ml Packed Cells 0 ml 0 ml 0 ml Output Urine Total 400 ml 650 ml 300 ml # Bowel Movements 0 0 0 . Laboratory Tests Test 12/09/16 12/10/16 01:44 04:16 White Blood Count 24.8 TH/MM3 19.9 TH/MM3 Red Blood Count 3.12 MIL/MM3 3.22 MIL/MM3 Hemoglobin 9.4 GM/DL 9.9 GM/DL Hematocrit 27.6 % 28.3 % Mean Corpuscular Volume 88.3 FL 87.8 FL Mean Corpuscular Hemoglobin 30.2 PG 30.8 PG Mean Corpuscular Hemoglobin 34.2 % 35.1 % Concent Red Cell Distribution Width 17.3 % 17.2 % Platelet Count 58 TH/MM3 30 TH/MM3 Mean Platelet Volume 10.5 FL 11.5 FL Neutrophils (%) (Auto) 97.8 % 87.1 % Lymphocytes (%) (Auto) 0.6 % 10.6 % Monocytes (%) (Auto) 1.5 % 2.2 % Eosinophils (%) (Auto) 0.0 % 0.0 % Basophils (%) (Auto) 0.1 % 0.1 % Neutrophils # (Auto) 24.2 TH/MM3 17.3 TH/MM3 Lymphocytes # (Auto) 0.1 TH/MM3 2.1 TH/MM3 Monocytes # (Auto) 0.4 TH/MM3 0.4 TH/MM3 Eosinophils # (Auto) 0.0 TH/MM3 0.0 TH/MM3 Basophils # (Auto) 0.0 TH/MM3 0.0 TH/MM3 CBC Comment AUTO DIFF AUTO DIFF Differential Comment AUTO DIFF AUTO DIFF CONFIRMED CONFIRMED Platelet Estimate LOW LOW Platelet Morphology Comment ENLARGED ENLARGED Target Cells 1+ 1+ Perera-Melmore Bodies PRESENT Acanthocytes OCC OCC Keratocytes OCC Virgil Cells 1+ Laboratory Tests Test 12/08/16 12/09/16 12/10/16 21:50 01:44 04:16 Sodium Level 139 MEQ/L 140 MEQ/L 141 MEQ/L Potassium Level 3.3 MEQ/L 3.1 MEQ/L 3.3 MEQ/L Chloride Level 104 MEQ/L 103 MEQ/L 105 MEQ/L Carbon Dioxide Level 24.5 MEQ/L 23.6 MEQ/L 23.1 MEQ/L Anion Gap 11 MEQ/L 13 MEQ/L 13 MEQ/L Blood Urea Nitrogen 17 MG/DL 18 MG/DL 22 MG/DL Creatinine 1.29 MG/DL 1.28 MG/DL 1.43 MG/DL Estimat Glomerular Filtration 43 ML/MIN 44 ML/MIN 39 ML/MIN Rate Random Glucose 129 MG/DL 133 MG/DL 135 MG/DL Calcium Level 7.3 MG/DL 7.4 MG/DL 8.0 MG/DL Protein Corrected Calcium 8.7 MG/DL 8.6 MG/DL Total Protein 4.7 GM/DL 5.0 GM/DL 5.4 GM/DL Total Bilirubin 1.5 MG/DL 1.2 MG/DL Aspartate Amino Transf 82 U/L 46 U/L (AST/SGOT) Alanine Aminotransferase 38 U/L 28 U/L (ALT/SGPT) Alkaline Phosphatase 67 U/L 84 U/L Albumin 1.9 GM/DL 1.9 GM/DL Phosphorus Level 2.9 MG/DL Magnesium Level 2.1 MG/DL Microbiology Date/Time Procedure Status Source Growth 12/07/16 21:15 Urine Culture - Final Complete Urine Catheterized Urine NO GROWTH IN 48 HOURS. 12/08/16 16:25 Gram Stain - Final Resulted Cerebral Spinal Fluid Lumbar Puncture 12/08/16 16:25 CSF Culture - Preliminary Resulted Cerebral Spinal Fluid Lumbar Puncture NO GROWTH IN 48 HOURS. 12/08/16 16:25 Fungal Smear Received Cerebral Spinal Fluid Lumbar Puncture Pending 12/08/16 16:25 Fungal Culture Received Cerebral Spinal Fluid Lumbar Puncture Pending 12/08/16 16:25 Acid Fast Stain - Final Resulted Cerebral Spinal Fluid Lumbar Puncture NO ACID FAST BACILLI SEEN 12/08/16 16:25 Mycobacterial Culture Resulted Cerebral Spinal Fluid Lumbar Puncture Pending 12/08/16 17:15 Influenza Types A,B Antigen (MARCO A) - Final Complete Nasal Aspirate NEGATIVE FOR FLU A AND B ANTIGEN.... 12/10/16 08:44 Aerobic Blood Culture Received Blood Peripheral Pending 12/10/16 08:44 Anaerobic Blood Culture Received Blood Peripheral Pending 12/10/16 12:20 Aerobic Blood Culture Received Blood Other Pending 12/10/16 12:20 Anaerobic Blood Culture Received Blood Other Pending Imaging Last Impressio Last Impressions Lung Scan-VQ Nuclear Medicine 12/09/16 0000 Signed Impressions: Service Date/Time: Friday, December 09, 2016 14:54 - CONCLUSION: Low probability for pulmonary embolism. Chaparro Baig MD Chest X-Ray 12/09/16 0000 Signed Impressions: Service Date/Time: Friday, December 09, 2016 10:12 - CONCLUSION: 1. Endotracheal tube 8 mm above the kaitlynn and could be retracted 3 cm. 2. Slight worsening airspace disease greater in the right lung. Chaparro Baig MD Lumbar Puncture Fluoroscopy 12/08/16 0000 Signed Impressions: Service Date/Time: December 16:10 - CONCLUSION: Uncomplicated fluoroscopically guided lumbar puncture with pressures as above. Dustin Hand MD Lower Extremity Ultrasound 12/08/16 0000 Signed Impressions: Service Date/Time: December 14:46 - CONCLUSION: Normal examination. Jamel Stevenson MD Abdomen Ultrasound 12/08/16 0000 Signed Impressions: Service Date/Time: December 14:15 - CONCLUSION: 1. No evidence of abdominal mass 2. Echogenic kidneys bilaterally compatible with medical renal disease. 3. Small bilateral effusions Dustin Hand MD Head CT 12/07/16 0000 Signed Impressions: Service Date/Time: Wednesday, December 07, 2016 12:10 - CONCLUSION: Negative for acute process.. Gurwinder Hernandez MD FACR Brain MRI 12/07/16 0000 Signed Impressions: Service Date/Time: Wednesday, December 07, 2016 15:03 - CONCLUSION: 1. Negative MRI of the brain. I do not see an etiology for the patient's metastatic disease. 2. I do not see obvious findings of a meningeal carcinomatosis either. Gurwinder Hernandez MD FACR Abdomen/Pelvis CT 12/07/16 0000 Signed Impressions: Service Date/Time: Wednesday, December 07, 2016 16:45 - CONCLUSION: 1. Abnormal lung bases with coarse interstitial changes suggesting fibrosis. 2. Abnormal left kidney. Pyelonephritis cannot be excluded without contrast. 3. The gallbladder appears prominent but unremarkable. 4. I do not see any etiology for the patient's abdominal pain. Gurwinder Hernandez MD FACR Physical Exam GENERAL: Acutely ill appearing CF patient. SKIN: No rashes. Ecchymosis noted. HEAD: Atraumatic. Normocephalic. No temporal or scalp tenderness. Alopecia EYES: Pupils equal round and reactive. Extraocular motions intact. No scleral icterus. No injection or drainage. ENT: Intubated. NECK: Trachea midline. Supple, nontender, no meningeal signs. CARDIOVASCULAR: HS audible. RESPIRATORY: Clear to auscultation. Breath sounds equal bilaterally. GASTROINTESTINAL: Abdomen soft,non tender, non distended. MUSCULOSKELETAL: Extremities without clubbing, cyanosis, or edema. toe tips are warm, with violacious erythema No joint tenderness, effusion, or edema noted. No calf tenderness. Negative Homans sign bilaterally. NEUROLOGICAL: Sedated, opens eyes spontaneously, tries to fight vent, flexes her neck, moves all 4 extremities. Psych: could not be assessed. IV line sites with no e.o infection. Port site with no e/o infection Assessment & Plan Remarks GNR sepsis - ID P - no mutatioons noted Septic Shock with Multiorgan dysfunction syndrome (MODS) Meningitis: bacterial. Aspiration pneumonia. Acute metabolic encephalopathy: Meningitis, Sepsis, SIADH Acute renal failure likely prerenal or sepsis Immune compromised Small cell lung cancer with metastasis Anemia acute onset. Recommendations: change Ceftriaxone 2gm IV q12hrs to cefepime dc Vancomycin IV target trough 15-20 dc Ampicillin IV (for Listeria in IC pt) cont Oral Diflucan oral lesions ? thrush. cont Flagyl to oral for few more days to cover aspiration PNA. derek SMITH and Dr.Iskandar Hwang [facility]ather[facility] MD Dec 10, 2016 15:45
[2016-12-10] MEDS: CEFEPIME INJ 2,000 MG in SODIUM CHLORIDE 0.9% INJ 100 ML IV SCH (18:06)
[2016-12-11] VITALS (19 sets, daily range): BP systolic 127–149; BP diastolic 75–103; PULSE 89–125; RESP 20–35; TEMP 98.1–99.2; O2SAT 90–96
[2016-12-11] MEDS: PROPOFOL 1000 MG/100 ML IV SCH ×4 (00:57→20:43)
[2016-12-11] MEDS: DEXAMETHASONE SOD PHOS 4 MG/ML VIAL IV PUSH SCH ×4 (02:11→20:22)
[2016-12-11] MEDS: levETIRAcetam INJ 1,000 MG in SODIUM CHLORIDE 0.9% INJ 100 ML IV SCH ×2 (02:12→14:16)
[2016-12-11] MEDS: CEFEPIME INJ 2,000 MG in SODIUM CHLORIDE 0.9% INJ 100 ML IV SCH ×3 (02:13→20:23)
[2016-12-11] MEDS: RESP: ALBUTEROL 2.5 MG/IPRATROPIUM 0.5 MG NEB (SCH) INH ×3 (04:18→14:33)
[2016-12-11 04:35] LABS: AUTOMATED NEUTROPHIL # 10.9 TH/MM3 (1.8-7.7); BASOPHIL % 0.1 % (0.0-2.0); HEMATOCRIT 29.6 % (35.0-46.0); LYMPH % 6.9 % (9.0-44.0); LYMPHOCYTE # 0.9 TH/MM3 (1.0-4.8); MEAN CELL VOLUME 89.2 FL (80.0-100.0); MEAN CORPUSCULAR HEMOGLOBIN 31.4 PG (27.0-34.0); MEAN CORPUSCULAR HGB CONC 35.2 % (32.0-36.0); MONO % 4.3 % (0.0-8.0); NEUT % 88.7 % (16.0-70.0); RED BLOOD COUNT 3.32 MIL/MM3 (4.00-5.30); RED CELL DISTRIBUTION WIDTH 17.1 % (11.6-17.2); WHITE BLOOD COUNT 12.3 TH/MM3 (4.0-11.0)
[2016-12-11 04:38] LABS: HEMO FLAGS AUTO DIFF
[2016-12-11 04:40] LABS: PLATELET COUNT 18 TH/MM3 (150-450)
[2016-12-11 05:03] LABS: ALT (GPT) 25 U/L (10-53); ANION GAP 14 MEQ/L (5-15); AST (GOT) 39 U/L (15-37); BICARBONATE 26.4 MEQ/L (21.0-32.0); BLOOD UREA NITROGEN 32 MG/DL (7-18); CHLORIDE 105 MEQ/L (98-107); GLOMERULAR FILTRATION RATE 36 ML/MIN (>89); MAGNESIUM 1.8 MG/DL (1.5-2.5); POTASSIUM 3.2 MEQ/L (3.5-5.1); SODIUM (NA) 145 MEQ/L (136-145)
[2016-12-11 05:05] LABS: ALKALINE PHOSPHATASE 135 U/L (45-117); TOTAL BILIRUBIN ADULT 0.9 MG/DL (0.2-1.0)
[2016-12-11 05:11] LABS: KERATOCYTES 1+ (NORMAL); NEUTROPHIL # MANUAL DIFF 11.2 TH/MM3 (1.8-7.7); OVALOCYTES 1+ (NORMAL); POLYS (SEG NEUTROPHILS) 91 % (16-70); TARGET CELLS 2+ (NORMAL); TEARDROP RBCS 1+ (NORMAL); WBC DIFF SAMPLE 100
[2016-12-11 05:12] LABS: PLATELET ESTIMATE SMEAR LOW (NORMAL); PLATELET MORPHOLOGY NORMAL (NORMAL); SCAN/DIFF FINAL DIFF MANUAL
[2016-12-11] MEDS: metroNIDAZOLE 500 MG TAB PO SCH ×3 (05:26→20:22)
[2016-12-11] MEDS: POTASSIUM CHLOR 40 MEQ PREMIX 100 ML IV PRN ×2 (05:27→08:07)
[2016-12-11] MEDS: CHLORHEXIDINE GLUCONATE 2 % 1 PACK (2 CLOTHS) TOP SCH (05:35)
[2016-12-11] MEDS: INSULIN NovoLIN REGULAR SUPPLEMENTAL SCALE SQ SCH ×3 (06:00→18:00)
[2016-12-11] MEDS: CHLORHEXIDINE 0.12% (ORAL KIT) 15 ML CUP MT SCH ×2 (07:24→20:22)
[2016-12-11] MEDS ORDERED: SODIUM CHLOR 0.9% 250 ML INJ 250 ML IV ONE ×3 (07:30→12:30)
[2016-12-11] MEDS: RIFAMPIN 150 MG CAP PO SCH ×2 (08:06→20:21)
[2016-12-11] MEDS: PANTOPRAZOLE SODIUM 40 MG VIAL IV SCH (08:07)
[2016-12-11] MEDS: FLUCONAZOLE 100 MG TAB PO SCH (08:08)
[2016-12-11] MEDS: METOPROLOL TARTRATE 25 MG TAB PO SCH ×3 (08:08→20:22)
--- NOTE | 2016-12-11 08:37 | HHI.CCPN ---
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 She presented to [facility] ED with altered mental status, lethargy and fever for the past couple days. Her last chemotherapy was two days ago however when the patient went to receive another session yesterday it was not given due to her condition and instead she was given IV hydration. On arrival to the ED, the patient was tachycardic with a heart rate of 110-120s and initially she was hypotensive with a systolic blood pressure 80s-90s. She also was found to have a temperature of 100.7 rectally. In the ED she was given 2 liter boluses of normal saline with improvement of her blood pressure to 141/ 86. Her laboratory data showed mild acute kidney injury with a creatinine level of 1.31 and hyponatremia with a sodium level of 131. In addition, the patient had significant leukocytosis with a WBC of 71.4 associated with bandemia 28. Also, her hemoglobin was 6.8 with hematocrit of 20.2. Two units of packed RBCs have been ordered by the ED physician. The patient received a Neulasta injection post her chemotherapy. Due to her altered mental status, a CT scan of the brain was obtained which was negative for acute process. The patient also had MRI of the brain which was negative for any metastatic disease. A chest x-ray in the ED showed Infusaport in good position and mild interstitial prominence. The patient received Vancomycin and cefepime in the ED , and a CT scan of the abdomen and pelvis has been ordered. Overall, history is limited as the patient is a poor historian. However, she is not complaining of any pain. 3/ Last night patient became tachycardic, hypoxic and worsening mental status she was subsequently intubated and placed on mechanical ventilation. She received additional 2L NS for hypotension and started on Neosyn 50 mics. s/p transfusion 2u PRBC yesterday for Hgb 6.8 her Hgb 11.2 this morning. 12/09 Patient remains sedated with Diprivan and intubated. On Neosyn 40 mics and bicarb drip. T:99.9 last night WBC trending down 24 today from 55. s/p LP showed clear CSF, WBC 978, TP:179 , nl glc 12/10 Patient is sedated with Diprivan and intubated. Off Neosyn. Afebrile. V/Q scaln yesterday low prob. BC from 12/07 GNR. 12/11 No acute events overnight. Sedated with Diprivan and intubated. Afebrile. WBC trending down. PLT 18 this morning. Tolerated CPAP x 4 hrs yesterday Objective Vital Signs Date Time Temp Pulse Resp B/P Pulse Ox O2 Delivery O2 Flow Rate FiO2 12/11/16 07:30 92 45 12/11/16 06:26 22 12/11/16 06:00 106 12/11/16 04:00 98.7 143/94 12/07/16 21:38 Partial Rebreather 12/07/16 18:30 2 Intake and Output 12/10/16 12/10/16 12/11/16 08:00 16:00 00:00 Intake Total 720 ml 1069 ml 924 ml Output Total 300 ml 1800 ml 1300 ml Balance 420 ml -731 ml -376 ml Result Diagram: 12/11/16 0324 12/11/16 0324 Other Results Laboratory Tests Test 12/10/16 12/11/16 15:45 03:24 Potassium Level 3.6 MEQ/L 3.2 MEQ/L White Blood Count 12.3 TH/MM3 Red Blood Count 3.32 MIL/MM3 Hemoglobin 10.4 GM/DL Hematocrit 29.6 % Mean Corpuscular Volume 89.2 FL Mean Corpuscular Hemoglobin 31.4 PG Mean Corpuscular Hemoglobin 35.2 % Concent Red Cell Distribution Width 17.1 % Platelet Count 18 TH/MM3 Mean Platelet Volume 11.1 FL Neutrophils (%) (Auto) 88.7 % Lymphocytes (%) (Auto) 6.9 % Monocytes (%) (Auto) 4.3 % Eosinophils (%) (Auto) 0.0 % Basophils (%) (Auto) 0.1 % Neutrophils # (Auto) 10.9 TH/MM3 Lymphocytes # (Auto) 0.9 TH/MM3 Monocytes # (Auto) 0.5 TH/MM3 Eosinophils # (Auto) 0.0 TH/MM3 Basophils # (Auto) 0.0 TH/MM3 CBC Comment AUTO DIFF Differential Total Cells 100 Counted Neutrophils % (Manual) 91 % Lymphocytes % 8 % Monocytes % 1 % Neutrophils # (Manual) 11.2 TH/MM3 Differential Comment FINAL DIFF MANUAL Platelet Estimate LOW Platelet Morphology Comment NORMAL Target Cells 2+ Tear Drop Cells 1+ Ovalocytes 1+ Keratocytes 1+ Sodium Level 145 MEQ/L Chloride Level 105 MEQ/L Carbon Dioxide Level 26.4 MEQ/L Anion Gap 14 MEQ/L Blood Urea Nitrogen 32 MG/DL Creatinine 1.52 MG/DL Estimat Glomerular Filtration 36 ML/MIN Rate Random Glucose 134 MG/DL Calcium Level 8.1 MG/DL Phosphorus Level 2.7 MG/DL Magnesium Level 1.8 MG/DL Total Bilirubin 0.9 MG/DL Aspartate Amino Transf 39 U/L (AST/SGOT) Alanine Aminotransferase 25 U/L (ALT/SGPT) Alkaline Phosphatase 135 U/L Total Protein 5.6 GM/DL Albumin 2.0 GM/DL Imaging Last Impressions Lung Scan-VQ Nuclear Medicine 12/09/16 Signed Impressions: Service Date/Time: Friday, December 09, 2016 14:54 - CONCLUSION: Low probability for pulmonary embolism. Chaparro Baig MD Chest X-Ray 12/09/16 Signed Impressions: Service Date/Time: Friday, December 09, 2016 10:12 - CONCLUSION: 1. Endotracheal tube 8 mm above the kaitlynn and could be retracted 3 cm. 2. Slight worsening airspace disease greater in the right lung. Chaparro Baig MD Lumbar Puncture Fluoroscopy 12/08/16 Signed Impressions: Service Date/Time: December 16:10 - CONCLUSION: Uncomplicated fluoroscopically guided lumbar puncture with pressures as above. Dustin Hand MD Lower Extremity Ultrasound 12/08/16 Signed Impressions: Service Date/Time: December 14:46 - CONCLUSION: Normal examination. Jamel Stevenson MD Abdomen Ultrasound 12/08/16 Signed Impressions: Service Date/Time: December 14:15 - CONCLUSION: 1. No evidence of abdominal mass 2. Echogenic kidneys bilaterally compatible with medical renal disease. 3. Small bilateral effusions Dustin Hand MD Head CT 12/07/16 Signed Impressions: Service Date/Time: Wednesday, December 07, 2016 12:10 - CONCLUSION: Negative for acute process.. Gurwinder Hernandez MD FACR Brain MRI 12/07/16 0000 Signed Impressions: Service Date/Time: Wednesday, December 07, 2016 15:03 - CONCLUSION: 1. Negative MRI of the brain. I do not see an etiology for the patient's metastatic disease. 2. I do not see obvious findings of a meningeal carcinomatosis either. Gurwinder Hernandez MD FACR Abdomen/Pelvis CT 12/07/16 0000 Signed Impressions: Service Date/Time: Wednesday, December 07, 2016 16:45 - CONCLUSION: 1. Abnormal lung bases with coarse interstitial changes suggesting fibrosis. 2. Abnormal left kidney. Pyelonephritis cannot be excluded without contrast. 3. The gallbladder appears prominent but unremarkable. 4. I do not see any etiology for the patient's abdominal pain. Gurwinder Hernandez MD FACR Objective Remarks GENERAL: Patient is 51 yo critically ill appearing intubated and sedated SKIN: Warm and dry. HEAD: Normocephalic. EYES: No scleral icterus. No injection or drainage. NECK: Supple, trachea midline. No JVD or lymphadenopathy. Orally intubated CARDIOVASCULAR: Tachycardic without murmurs, gallops, or rubs. RESPIRATORY: Breath sounds equal bilaterally. No accessory muscle use. GASTROINTESTINAL: Abdomen soft, mild tenderness on palpation. MUSCULOSKELETAL: No cyanosis, or edema. Neuro: Sedated, intubated A/P Assessment and Plan 1. VDRF 2. Leukocytosis ..trending down 3. Rule out aspiration pneumonia. 4. Anemia, thrombocytopenia r/o DIC 5. Acute kidney injury. 6. Encephalopathy 7 Bacterial Meningitis 8. Small cell lung cancer status post chemotherapy 9. Chronic hyponatremia. 10. 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 11 Hyperglycemia 12 Elevated AST 13. Hypertension. 14. GERD. 15. History of bronchial asthma. Plan Neuro: On Diprivan infusion for sedation Monitor neuro status closely and avoid sedatives. CT brain and MRI brain negative for acute process EEG showed diffuse encephalopathy- on Keppra IV Q12, Decadron 10mg Q6 s/p LP 12/08 - clear CSF, WBC 978, TP:179, nl Glc, 96 Neutrophils. Continue with abx, Decadron 10mg Q6 Neuro: Dr. Howe Pulm: Continue with vent support and maintain sats above 92%. Bronchodilators , ICU vent bundle. SBT as lazaro V/Q scan- Low prob PE CV: Increase Lopressor 25mg Q12. monitor HR and BP and maintain MAP > 65 mmHg. Lactic acid: 1.8 Echo showed diffuse hypokinesis EF 25-30% : Monitor renal function, Is and Os and electrolyte replacement per protocol. Cr: 1.52 today from 1.43, UO: 3750 ml in [address] abd/pelvis : Pyelonephritis could not be excluded . US abdomen: No masses, medical renal disease GI: On Protonix 40 mg IV daily for GI prophylaxis. TF-Glucerna 1.5 @ 45ml/hr on Reglan 5mg Q8 PRN high residuals. ID: Continue with abx per ID (Cefepime, Flagyl, Diflucan, Rifampin) Strep pneumonia and Legionella urinary antigen negative. s/p LP 12/07, follow up on LP results- NGTD BC from 12/07: GNR. follow up on BC from 12/10 .WBC trending down Heme: Monitor CBC, coags, s/p transfusion 2 units of PRBC on arrival. Heme-Onc is following- Dr. Gama. PLT count 18 this morning. Will defer PLT transfusion to Heme. Endo: SSI with Accu-Cheks for glycemic control. GI prophylaxis with Protonix 40 mg daily and DVT prophylaxis with SCDs. Not on chemical anticoagulation prophylaxis due to anemia requiring blood transfusions and thrombocytopenia 3/2 Doppler US LE negative for DVT 12/09 V/Q scan low prob PE Lines: Right Infuse A port CCT 30 mins . Ryan Nunn MD Dec 11, 2016 08:36
--- NOTE | 2016-12-11 09:48 | PD.ONC.PN ---
Subjective Subjective Remarks Afebrile overnight. Pt supine in bed sedated and mechanically ventilated. Per RN she has had no bleeding. She is tolerating TF. She unfortunately failed CPAP trials again this morning. Objective Data Date Time Temp Pulse Resp B/P Pulse Ox O2 Delivery O2 Flow Rate FiO2 12/11/16 08:54 90 55 12/11/16 08:00 98.9 125 34 146/103 96 12/11/16 08:00 45 12/11/16 08:00 122 12/11/16 07:30 92 45 12/11/16 06:26 22 12/11/16 06:00 106 12/11/16 04:19 96 50 12/11/16 04:00 98.7 102 27 143/94 96 12/11/16 04:00 45 12/11/16 04:00 102 12/11/16 02:00 100 12/11/16 00:23 95 50 12/11/16 00:00 99.2 93 20 132/90 96 12/11/16 00:00 45 12/11/16 00:00 93 12/10/16 22:00 81 12/10/16 20:00 88 12/10/16 20:00 98.9 88 22 109/70 95 12/10/16 20:00 45 12/10/16 19:20 95 50 12/10/16 18:00 90 12/10/16 16:00 98.8 107 25 136/91 93 12/10/16 16:00 40 12/10/16 16:00 107 12/10/16 14:54 94 50 12/10/16 14:00 98 12/10/16 12:00 40 12/10/16 12:00 98.9 135 31 145/91 91 12/10/16 12:00 109 12/10/16 11:56 92 50 12/10/16 10:00 109 12/11/16 12/11/16 12/11/16 07:00 15:00 23:00 Intake Total 892 ml Output Total 650 ml Balance 242 ml Result Diagram: 12/11/16 0324 12/11/16 0324 Laboratory Results Laboratory Tests Test 12/10/16 12/11/16 12/11/16 15:45 03:24 08:14 Potassium Level 3.6 MEQ/L 3.2 MEQ/L White Blood Count 12.3 TH/MM3 Red Blood Count 3.32 MIL/MM3 Hemoglobin 10.4 GM/DL Hematocrit 29.6 % Mean Corpuscular Volume 89.2 FL Mean Corpuscular Hemoglobin 31.4 PG Mean Corpuscular Hemoglobin 35.2 % Concent Red Cell Distribution Width 17.1 % Platelet Count 18 TH/MM3 Mean Platelet Volume 11.1 FL Neutrophils (%) (Auto) 88.7 % Lymphocytes (%) (Auto) 6.9 % Monocytes (%) (Auto) 4.3 % Eosinophils (%) (Auto) 0.0 % Basophils (%) (Auto) 0.1 % Neutrophils # (Auto) 10.9 TH/MM3 Lymphocytes # (Auto) 0.9 TH/MM3 Monocytes # (Auto) 0.5 TH/MM3 Eosinophils # (Auto) 0.0 TH/MM3 Basophils # (Auto) 0.0 TH/MM3 CBC Comment AUTO DIFF Differential Total Cells 100 Counted Neutrophils % (Manual) 91 % Lymphocytes % 8 % Monocytes % 1 % Neutrophils # (Manual) 11.2 TH/MM3 Differential Comment FINAL DIFF MANUAL Platelet Estimate LOW Platelet Morphology Comment NORMAL Target Cells 2+ Tear Drop Cells 1+ Ovalocytes 1+ Keratocytes 1+ Sodium Level 145 MEQ/L Chloride Level 105 MEQ/L Carbon Dioxide Level 26.4 MEQ/L Anion Gap 14 MEQ/L Blood Urea Nitrogen 32 MG/DL Creatinine 1.52 MG/DL Estimat Glomerular Filtration 36 ML/MIN Rate Random Glucose 134 MG/DL Calcium Level 8.1 MG/DL Phosphorus Level 2.7 MG/DL Magnesium Level 1.8 MG/DL Total Bilirubin 0.9 MG/DL Aspartate Amino Transf 39 U/L (AST/SGOT) Alanine Aminotransferase 25 U/L (ALT/SGPT) Alkaline Phosphatase 135 U/L Total Protein 5.6 GM/DL Albumin 2.0 GM/DL Blood Bank Comment Culture Results Microbiology Date/Time Procedure Status Source Growth 12/08/16 16:25 Gram Stain - Final Complete Cerebral Spinal Fluid Lumbar Puncture 12/08/16 16:25 CSF Culture - Final Complete Cerebral Spinal Fluid Lumbar Puncture NO GROWTH IN 72 HOURS 12/08/16 16:25 Fungal Smear Received Cerebral Spinal Fluid Lumbar Puncture Pending 12/08/16 16:25 Fungal Culture Received Cerebral Spinal Fluid Lumbar Puncture Pending 12/08/16 16:25 Acid Fast Stain - Final Resulted Cerebral Spinal Fluid Lumbar Puncture NO ACID FAST BACILLI SEEN 12/08/16 16:25 Mycobacterial Culture Resulted Cerebral Spinal Fluid Lumbar Puncture Pending 12/08/16 17:15 Influenza Types A,B Antigen (MARCO A) - Final Complete Nasal Aspirate NEGATIVE FOR FLU A AND B ANTIGEN.... 12/10/16 08:44 Aerobic Blood Culture Received Blood Peripheral Pending 12/10/16 08:44 Anaerobic Blood Culture Received Blood Peripheral Pending 12/10/16 12:20 Aerobic Blood Culture Received Blood Other Pending 12/10/16 12:20 Anaerobic Blood Culture Received Blood Other Pending 12/10/16 15:30 Gram Stain - Final Resulted Sputum Endotracheal 12/10/16 15:30 Sputum Culture Resulted Sputum Endotracheal Pending Administered Medications Medications (Trade) Dose Ordered Sig/Ermias Route PRN Reason Start Time Stop Time Status Last Admin Dose Admin Pantoprazole Sodium (Protonix Inj) 40 mg DAILY IV 12/07/16 16:15 12/11/16 08:07 Chlorhexidine Gluconate (Chlorhexidine 2% Cloth) 3 pack Taper DAILY@04 TOP 12/08/16 04:00 12/04/17 03:59 12/11/16 05:35 Insulin Human Regular (NovoLIN R SUPPLEMENTAL SCALE) 1 Q6H SQ 12/07/16 18:00 12/09/16 05:25 Fentanyl Citrate 50 mcg 50 mcg Q1H PRN IV PUSH PAIN 5-10 12/07/16 21:45 12/11/16 05:26 Phenylephrine HCl 40 mg/Dextrose 500 ml @ 0 mls/hr TITRATE IV 12/08/16 02:00 12/09/16 05:11 Potassium Chloride 100 ml @ 50 mls/hr Q2H PRN IV For Potassium 2.8 - 3.2 mEq/L 12/08/16 01:00 12/11/16 08:07 Potassium Chloride 100 ml @ 25 mls/hr UNSCH PRN IV For Potassium 3.3 - 3.5 mEq/L 12/08/16 01:00 12/10/16 10:50 Magnesium Sulfate/ Sodium Chloride (Magnesium Sulfate Inj/NS Inj) 100 ml @ 50 mls/hr UNSCH PRN IV For Magnesium 1.2 - 1.6 mg/dL 12/08/16 01:00 12/08/16 02:37 Acetaminophen (Tylenol 650 Mg/ 20 ml Liq) 650 mg Q4H PRN TUBE TEMP >101 12/08/16 03:30 12/08/16 04:07 Chlorhexidine Gluconate 15 ml 15 ml BID@08,20 MT 12/08/16 08:00 12/11/16 07:24 Levetriacetam 1000 mg/Sodium Chloride 110 ml @ 420 mls/hr Q12H IV 12/09/16 03:00 12/11/16 02:12 Propofol (Diprivan 1000 Mg/100ml Inj) 100 ml @ 0 mls/hr TITRATE IV 12/09/16 00:45 12/11/16 00:57 Dexamethasone Sodium Phosphate (Decadron Inj) 10 mg Q6H IV PUSH 12/09/16 09:00 12/11/16 08:07 Metronidazole (Flagyl) 500 mg Q8HR PO 12/09/16 14:00 12/11/16 05:26 Rifampin (Rifampin) 300 mg Q12HR PO 12/09/16 09:00 12/11/16 08:06 Fluconazole (Diflucan) 100 mg DAILY PO 12/09/16 11:00 12/11/16 08:08 Objective Remarks GENERAL: Chronically ill appearing female, lying in bed sedated and mechanically ventilated. SKIN: Warm and dry. No ecchymoses. HEAD: Normocephalic. +Alopecia. EYES: No injection or drainage. NECK: Supple, trachea midline. CARDIOVASCULAR: +S1/S2. RESPIRATORY: Coarse rhonchi throughout. Mechanically ventilated. GASTROINTESTINAL: Abdomen soft, nondistended. EXTREMITIES: SCD's to BLE. Bilateral tips of toes erythematous. NEUROLOGICAL: Intubated, sedated. Per RN, she is not following commands during sedation vacation. Assessment/Plan Problem List: (1) Sepsis Status: Acute Plan: -- Likely bacterial meningitis -- CSF gram stain shows no growth -- All other CSF micro pending. --on multiple abx as above, per ID. --U/A neg --CXR: shows bilateral airspace disease. last Neulasta shot was given on 11/16. 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 -- Fibrinogen OK. -- Transfuse for bleeding or platelets less than 20K. (5) Acute renal failure Status: Acute Plan: --on IVF (6) Elevated LFTs Status: Acute Plan: --Abnormal LFTs likely secondary to acute illness. ++does have metastatic disease to the liver. Assessment 51y/o admitted with hypotension, lethargy, leukocytosis, now critically ill in [facility], intubated and on pressor support h/o metastatic SCLC Plan 1. Platelets 18K today. Will transfuse 1 unit platelets. 2. Monitor for bleeding. Will recheck coags in am. 3. Continue supportive care. Attending Statement The exam, history, and the medical decision-making described in the above note were completed with the assistance of the mid-level provider. I reviewed and agree with the findings presented. I attest that I had a [id number] encounter with the patient on the same day, and personally performed and documented my assessment and findings in the medical record. The patient was examined, vital signs, blood work, microbiology, medications were reviewed. I also reviewed the patient's peripheral smear; the findings of which are summarized below: Significant anisocytosis identified, schistocytes were identified at her frequency of about 2 per medium powered field. LDH level, haptoglobin, fibrinogen, PT PTT INR have been ordered for today. 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 This is most likely a partially compensated peripheral consumptive coagulopathy (DIC). The clinical presentation is not consistent with TTP given the positive blood cultures for gram-negative rods. I recommended platelet transfusion today, FFP transfusion now and then again later today to replete some of the consumed coagulation factors as well as naturally occurring anticoagulants such as protein C and protein S. Problem Qualifiers (1) Sepsis: Qualified Code: A41.9 - Sepsis, due to unspecified organism Saba Banegas Dec 11, 2016 09:48 Christopher Chavez MD Dec 11, 2016 12:22
[2016-12-11 09:52] LABS: HAEMOPHILUS FLU AG TYPE B Not Detected (Not Detected); N MENINGITIDIS GRP B/ECOLI K1 Not Detected (Not Detected); N MENINGITIDIS GRP C/W135 Not Detected (Not Detected); N.MENINGITIDIS GRP A/Y Not Detected (Not Detected); STREPTOCOCCUS PNEUMONIAE Not Detected (Not Detected)
[2016-12-11] MEDS: MORPHINE SULFATE 4 MG/ML INJ IV PUSH PRN ×3 (11:51→20:46)
--- NOTE | 2016-12-11 12:13 | HHI.PR ---
Review/Management Diagnosis meningitis---r/o CA meningitis. cultures CSF negative after 72 hrs. csf cytology--pending Plan f/u csf cytology Diagnosis/Plan: Subjective Subjective Comments No acute events reported Active Medications Current Medications Medications (Trade) Dose Ordered Sig/Ermias Route Start Time Stop Time Status Last Admin (Protonix Inj) 40 mg DAILY IV 12/07/16 16:15 12/11/16 08:07 Miscellaneous Information 1 Q361D XX 12/07/16 16:15 (Chlorhexidine 2% Cloth) 3 pack Taper DAILY@04 TOP 12/08/16 04:00 12/04/17 03:59 12/11/16 05:35 (Chlorhexidine 2% Cloth) 3 pack UNSCH PRN TOP 12/07/16 16:15 (D50w (Vial) Inj) 25 ml UNSCH PRN IV PUSH 12/07/16 17:15 (Glucagon Inj) 1 mg UNSCH PRN OTHER 12/07/16 17:15 (NovoLIN R SUPPLEMENTAL SCALE) 1 Q6H SQ 12/07/16 18:00 12/09/16 05:25 (fentaNYL INJ) 25 mcg Q2H PRN IV PUSH 12/07/16 21:45 Fentanyl Citrate 50 mcg 50 mcg Q1H PRN IV PUSH 12/07/16 21:45 12/11/16 05:26 (Neosynephrine Inj/D5W 500 ml Inj) 500 ml @ 0 mls/hr TITRATE IV 12/08/16 02:00 12/09/16 05:11 Terbutaline Sulfate 1 mg 1 mg UNSCH PRN SQ 12/08/16 01:00 Potassium Chloride 100 ml @ 50 mls/hr Q2H PRN IV 12/08/16 01:00 12/11/16 08:07 (KCl 20 Meq Premix Inj) 100 ml @ 50 mls/hr Q2H PRN IV 12/08/16 01:00 Potassium Chloride 40 meq 40 meq UNSCH PRN PO/TUBE 12/08/16 01:00 Potassium Chloride 100 ml @ 25 mls/hr UNSCH PRN IV 12/08/16 01:00 12/10/16 10:50 Potassium Chloride 100 ml @ 50 mls/hr Q2H PRN IV 12/08/16 01:00 (Magnesium Sulfate Inj/NS Inj) 100 ml @ 50 mls/hr UNSCH PRN IV 12/08/16 01:00 Magnesium Oxide 800 mg 800 mg UNSCH PRN PO 12/08/16 01:00 (Magnesium Sulfate Inj/NS Inj) 100 ml @ 50 mls/hr UNSCH PRN IV 12/08/16 01:00 12/08/16 02:37 Potassium Phosphate 2000 mg 2,000 mg Q4H PRN PO 12/08/16 01:00 (Sodium Phosphate Inj/NS 250 ml Inj) 250 ml @ 42 mls/hr UNSCH PRN IV 12/08/16 01:00 (KCl 40 Meq/30 ml Liq) 40 meq UNSCH PRN PO/TUBE 12/08/16 01:00 Potassium Phosphate 2000 mg 2,000 mg UNSCH PRN PO/TUBE 12/08/16 01:00 Potassium Phosphate 30 mmol/ Sodium Chloride 260 ml @ 42 mls/hr UNSCH PRN IV 12/08/16 01:00 (fentaNYL DRIP) 250 ml @ 0 mls/hr TITRATE IV 12/08/16 03:30 (Tylenol 650 Mg/ 20 ml Liq) 650 mg Q4H PRN TUBE 12/08/16 03:30 12/08/16 04:07 (Peridex 0.12% Liq) 15 ml BID@08,20 MT 12/08/16 08:00 12/11/16 07:24 Lorazepam 1 mg 1 mg Q4H PRN IV PUSH 12/08/16 14:15 Levetriacetam 1000 mg/Sodium Chloride 110 ml @ 420 mls/hr Q12H IV 12/09/16 03:00 12/11/16 02:12 (Diprivan 1000 Mg/100ml Inj) 100 ml @ 0 mls/hr TITRATE IV 12/09/16 00:45 12/11/16 11:58 (Decadron Inj) 10 mg Q6H IV PUSH 12/09/16 09:00 12/11/16 08:07 (Flagyl) 500 mg Q8HR PO 12/09/16 14:00 12/11/16 05:26 (Rifampin) 300 mg Q12HR PO 12/09/16 09:00 12/11/16 08:06 (Diflucan) 100 mg DAILY PO 12/09/16 11:00 12/11/16 08:08 Metoclopramide HCl 5 mg 5 mg Q8H PRN IV PUSH 12/10/16 07:15 (NS 250 ml Inj) 250 ml @ 15 mls/hr ONCE ONCE IV 12/11/16 07:30 12/12/16 00:09 Metoprolol Tartrate 25 mg 25 mg Q12HR PO 12/11/16 09:00 (Maxipime Inj/NS Inj) 100 ml @ 200 mls/hr Q12H IV 12/11/16 20:00 (Morphine Inj) 1 mg Q4H PRN IV PUSH 12/11/16 11:15 12/11/16 11:51 Allergies Allergies Coded Allergies Lipitor (Verified Adverse Reaction, Severe, Myalgia, 12/07/16) Codeine (Verified Adverse Reaction, Intermediate, Sedation, 12/07/16) Uncoded Allergies SEASONAL ALLERGIES ( Allergy, Mild, 03/13/08) estroven ( Adverse Reaction, Intermediate, raised BP, 06/12/15) Exam I&O / VS 12/10/16 12/10/16 12/11/16 15:00 23:00 07:00 Intake Total 1069 ml 924 ml 892 ml Output Total 1800 ml 1300 ml 650 ml Balance -731 ml -376 ml 242 ml IV Total 753 ml 631 ml 588 ml Tube Feeding 316 ml 293 ml 304 ml Output Urine Total 1800 ml 1300 ml 650 ml # Bowel Movements 0 1 Vital Signs Date Time Temp Pulse Resp B/P Pulse Ox O2 Delivery O2 Flow Rate FiO2 12/11/16 10:00 98 12/11/16 08:54 90 55 12/11/16 08:00 98.9 125 34 146/103 96 12/11/16 08:00 45 12/11/16 08:00 122 12/11/16 07:30 92 45 12/11/16 06:26 22 12/11/16 06:00 106 12/11/16 04:19 96 50 12/11/16 04:00 98.7 102 27 143/94 96 12/11/16 04:00 45 12/11/16 04:00 102 12/11/16 02:00 100 12/11/16 00:23 95 50 12/11/16 00:00 99.2 93 20 132/90 96 12/11/16 00:00 45 12/11/16 00:00 93 12/10/16 22:00 81 12/10/16 20:00 88 12/10/16 20:00 98.9 88 22 109/70 95 12/10/16 20:00 45 12/10/16 19:20 95 50 12/10/16 18:00 90 12/10/16 16:00 98.8 107 25 136/91 93 12/10/16 16:00 40 12/10/16 16:00 107 12/10/16 14:54 94 50 12/10/16 14:00 98 Exam Comments nonresponsive/sedated Perrl, EOM-I to dolls Motor--no spontaneous limb movement, no posturing Objective Micro and Labs Laboratory Tests Test 12/10/16 12/11/16 12/11/16 15:45 03:24 08:14 Potassium Level 3.6 3.2 White Blood Count 12.3 Red Blood Count 3.32 Hemoglobin 10.4 Hematocrit 29.6 Mean Corpuscular Volume 89.2 Mean Corpuscular Hemoglobin 31.4 Mean Corpuscular Hemoglobin 35.2 Concent Red Cell Distribution Width 17.1 Platelet Count 18 Mean Platelet Volume 11.1 Neutrophils (%) (Auto) 88.7 Lymphocytes (%) (Auto) 6.9 Monocytes (%) (Auto) 4.3 Eosinophils (%) (Auto) 0.0 Basophils (%) (Auto) 0.1 Neutrophils # (Auto) 10.9 Lymphocytes # (Auto) 0.9 Monocytes # (Auto) 0.5 Eosinophils # (Auto) 0.0 Basophils # (Auto) 0.0 CBC Comment AUTO DIFF Differential Total Cells 100 Counted Neutrophils % (Manual) 91 Lymphocytes % 8 Monocytes % 1 Neutrophils # (Manual) 11.2 Differential Comment FINAL DIFF MANUAL Platelet Estimate LOW Platelet Morphology Comment NORMAL Target Cells 2+ Tear Drop Cells 1+ Ovalocytes 1+ Keratocytes 1+ Sodium Level 145 Chloride Level 105 Carbon Dioxide Level 26.4 Anion Gap 14 Blood Urea Nitrogen 32 Creatinine 1.52 Estimat Glomerular Filtration 36 Rate Random Glucose 134 Calcium Level 8.1 Phosphorus Level 2.7 Magnesium Level 1.8 Total Bilirubin 0.9 Aspartate Amino Transf 39 (AST/SGOT) Alanine Aminotransferase 25 (ALT/SGPT) Alkaline Phosphatase 135 Total Protein 5.6 Albumin 2.0 Blood Bank Comment Date/Time Procedure Status Source Growth 12/10/16 15:30 Gram Stain - Final Resulted Sputum Endotracheal 12/10/16 15:30 Sputum Culture Resulted Sputum Endotracheal Pending 12/10/16 12:20 Aerobic Blood Culture - Preliminary Resulted Blood Other NO GROWTH IN 1 DAY 12/10/16 12:20 Anaerobic Blood Culture - Preliminary Resulted Blood Other NO GROWTH IN 1 DAY 12/08/16 17:15 Influenza Types A,B Antigen (MARCO A) - Final Complete Nasal Aspirate NEGATIVE FOR FLU A AND B ANTIGEN.... 12/08/16 16:25 Fungal Smear Received Cerebral Spinal Fluid Lumbar Puncture Pending 12/08/16 16:25 Fungal Culture Received Cerebral Spinal Fluid Lumbar Puncture Pending 12/08/16 16:25 Acid Fast Stain - Final Resulted Cerebral Spinal Fluid Lumbar Puncture NO ACID FAST BACILLI SEEN 12/08/16 16:25 Mycobacterial Culture Resulted Cerebral Spinal Fluid Lumbar Puncture Pending 12/07/16 21:15 Urine Culture - Final Complete Urine Catheterized Urine NO GROWTH IN 48 HOURS. 12/07/16 14:05 Legionella Antigen - Final Complete Urine Catheterized Urine PRESUMPTIVE NEGATIVE FOR LEGIONELLA P... 12/07/16 14:05 Streptococcus pneumoniae Antigen (M - Final Complete Urine Catheterized Urine PRESUMPTIVE NEGATIVE FOR STREPTOCOCCU... Matthias Watts PhD Dec 11, 2016 12:13
[2016-12-11] MEDS ORDERED: diphenhydrAMINE HCL 25 MG CAP PO PRN ×3 (12:30→20:15)
[2016-12-11] MEDS ORDERED: ACETAMINOPHEN 325 MG TAB PO PRN ×2 (12:30)
[2016-12-11 13:08] LABS: APTT (PATIENT) 25.2 SEC (24.3-30.1); INTERNATIONAL NORMALIZED RATIO 1.1 RATIO; PROTHROMBIN TIME - PATIENT 11.8 SEC (9.8-11.6)
[2016-12-11 14:03] LABS: HEPARIN AB OD 0.181 O.D. (0.000-0.300); HEPARIN INDUCED PLATELET AB NEGATIVE (NEGATIVE)
[2016-12-11 16:44] LABS: CSF CRYPTOCOCCUS AG CONF ND (NOT DETECTD)
[2016-12-11] MEDS: ACETAMINOPHEN 650 MG/20.3 ML UDC TUBE PRN (20:21)
[2016-12-11] MEDS ORDERED: BUMETANIDE INJ 1 MG/4 ML VIAL IV PUSH ONE (22:30)
[2016-12-12] VITALS (20 sets, daily range): BP systolic 119–159; BP diastolic 74–107; PULSE 80–92; RESP 20–27; TEMP 97.9–100.5; O2SAT 91–99
[2016-12-12] MEDS: PROPOFOL 1000 MG/100 ML IV SCH ×3 (00:27→10:16)
[2016-12-12] MEDS: MORPHINE SULFATE 4 MG/ML INJ IV PUSH PRN ×4 (00:41→18:18)
[2016-12-12 02:34] LABS: AUTOMATED NEUTROPHIL # 10.4 TH/MM3 (1.8-7.7); BASOPHIL # 0.1 TH/MM3 (0-0.2); BASOPHIL % 0.6 % (0.0-2.0); HEMATOCRIT 23.5 % (35.0-46.0); LYMPH % 8.6 % (9.0-44.0); MEAN CORPUSCULAR HEMOGLOBIN 30.9 PG (27.0-34.0); MEAN CORPUSCULAR HGB CONC 34.7 % (32.0-36.0); MONO % 3.7 % (0.0-8.0); NEUT % 87.1 % (16.0-70.0); PLATELET COUNT 38 TH/MM3 (150-450); RED BLOOD COUNT 2.64 MIL/MM3 (4.00-5.30); RED CELL DISTRIBUTION WIDTH 17.3 % (11.6-17.2)
[2016-12-12 02:38] LABS: HEMO FLAGS AUTO DIFF
[2016-12-12 02:54] LABS: APTT (PATIENT) 24.5 SEC (24.3-30.1); INTERNATIONAL NORMALIZED RATIO 1.1 RATIO; PROTHROMBIN TIME - PATIENT 12.1 SEC (9.8-11.6)
[2016-12-12] MEDS: DEXAMETHASONE SOD PHOS 4 MG/ML VIAL IV PUSH SCH ×4 (02:58→19:47)
[2016-12-12] MEDS: CHLORHEXIDINE GLUCONATE 2 % 1 PACK (2 CLOTHS) TOP SCH (02:58)
[2016-12-12] MEDS: levETIRAcetam INJ 1,000 MG in SODIUM CHLORIDE 0.9% INJ 100 ML IV SCH ×2 (02:58→15:05)
[2016-12-12 03:06] LABS: ALT (GPT) 23 U/L (10-53); ANION GAP 9 MEQ/L (5-15); AST (GOT) 29 U/L (15-37); BICARBONATE 30.6 MEQ/L (21.0-32.0); BLOOD UREA NITROGEN 38 MG/DL (7-18); CHLORIDE 104 MEQ/L (98-107); GLOMERULAR FILTRATION RATE 40 ML/MIN (>89); MAGNESIUM 1.5 MG/DL (1.5-2.5); POTASSIUM 3.3 MEQ/L (3.5-5.1); SODIUM (NA) 144 MEQ/L (136-145)
[2016-12-12 03:08] LABS: ALKALINE PHOSPHATASE 101 U/L (45-117); TOTAL BILIRUBIN ADULT 1.1 MG/DL (0.2-1.0)
[2016-12-12 04:10] LABS: ACANTHOCYTES OCC (NORMAL); KERATOCYTES OCC (NORMAL); PLATELET ESTIMATE SMEAR LOW (NORMAL); PLATELET MORPHOLOGY NORMAL (NORMAL); SCAN/DIFF AUTO DIFF CONFIRMED
[2016-12-12 04:11] LABS: TARGET CELLS 1+ (NORMAL)
[2016-12-12] MEDS: metroNIDAZOLE 500 MG TAB PO SCH ×3 (04:55→21:07)
[2016-12-12] MEDS: INSULIN NovoLIN REGULAR SUPPLEMENTAL SCALE SQ SCH ×4 (05:53→18:00)
--- NOTE | 2016-12-12 08:11 | HHI.CCPN ---
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 She presented to [facility] ED with altered mental status, lethargy and fever for the past couple days. Her last chemotherapy was two days ago however when the patient went to receive another session yesterday it was not given due to her condition and instead she was given IV hydration. On arrival to the ED, the patient was tachycardic with a heart rate of 110-120s and initially she was hypotensive with a systolic blood pressure 80s-90s. She also was found to have a temperature of 100.7 rectally. In the ED she was given 2 liter boluses of normal saline with improvement of her blood pressure to 141/ 86. Her laboratory data showed mild acute kidney injury with a creatinine level of 1.31 and hyponatremia with a sodium level of 131. In addition, the patient had significant leukocytosis with a WBC of 71.4 associated with bandemia 28. Also, her hemoglobin was 6.8 with hematocrit of 20.2. Two units of packed RBCs have been ordered by the ED physician. The patient received a Neulasta injection post her chemotherapy. Due to her altered mental status, a CT scan of the brain was obtained which was negative for acute process. The patient also had MRI of the brain which was negative for any metastatic disease. A chest x-ray in the ED showed Infusaport in good position and mild interstitial prominence. The patient received Vancomycin and cefepime in the ED , and a CT scan of the abdomen and pelvis has been ordered. Overall, history is limited as the patient is a poor historian. However, she is not complaining of any pain. 3/ Last night patient became tachycardic, hypoxic and worsening mental status she was subsequently intubated and placed on mechanical ventilation. She received additional 2L NS for hypotension and started on Neosyn 50 mics. s/p transfusion 2u PRBC yesterday for Hgb 6.8 her Hgb 11.2 this morning. 12/09 Patient remains sedated with Diprivan and intubated. On Neosyn 40 mics and bicarb drip. T:99.9 last night WBC trending down 24 today from 55. s/p LP showed clear CSF, WBC 978, TP:179 , nl glc 12/10 Patient is sedated with Diprivan and intubated. Off Neosyn. Afebrile. V/Q scaln yesterday low prob. BC from 12/07 GNR. 12/11 No acute events overnight. Sedated with Diprivan and intubated. Afebrile. WBC trending down. PLT 18 this morning. Tolerated CPAP x 4 hrs yesterday 12/12 Patient remains sedated and intubated. On ACV RR20, TV 500, PEEP:5, FIO2 55% . Afebrile. s/p transfusion 1u PLT and FFP yesterday per heme. Objective Vital Signs Date Time Temp Pulse Resp B/P Pulse Ox O2 Delivery O2 Flow Rate FiO2 12/12/16 07:26 91 45 12/12/16 06:00 85 12/12/16 05:00 20 12/12/16 04:00 97.9 137/94 Intake and Output 12/11/16 12/11/16 12/12/16 08:00 16:00 00:00 Intake Total 892 ml 1206 ml 1582 ml Output Total 650 ml 850 ml 600 ml Balance 242 ml 356 ml 982 ml Result Diagram: 12/12/16 0225 12/12/16 0225 Other Results Laboratory Tests Test 12/11/16 12/11/16 12/11/16 12/11/16 08:14 11:55 12:30 12:52 Blood Bank Comment Platelet Count 79 TH/MM3 Haptoglobin 265 MG/DL Prothrombin Time 11.8 SEC Prothromb Time International 1.1 RATIO Ratio Activated Partial 25.2 SEC Thromboplast Time Fibrinogen 385 mg/dL Lactate Dehydrogenase 507 U/L Test 12/11/16 12/11/16 12/12/16 17:35 20:00 02:25 Potassium Level 3.8 MEQ/L 3.3 MEQ/L Blood Bank Comment White Blood Count 12.0 TH/MM3 Red Blood Count 2.64 MIL/MM3 Hemoglobin 8.2 GM/DL Hematocrit 23.5 % Mean Corpuscular Volume 89.0 FL Mean Corpuscular Hemoglobin 30.9 PG Mean Corpuscular Hemoglobin 34.7 % Concent Red Cell Distribution Width 17.3 % Platelet Count 38 TH/MM3 Mean Platelet Volume 10.8 FL Neutrophils (%) (Auto) 87.1 % Lymphocytes (%) (Auto) 8.6 % Monocytes (%) (Auto) 3.7 % Eosinophils (%) (Auto) 0.0 % Basophils (%) (Auto) 0.6 % Neutrophils # (Auto) 10.4 TH/MM3 Lymphocytes # (Auto) 1.0 TH/MM3 Monocytes # (Auto) 0.4 TH/MM3 Eosinophils # (Auto) 0.0 TH/MM3 Basophils # (Auto) 0.1 TH/MM3 CBC Comment AUTO DIFF Differential Comment AUTO DIFF CONFIRMED Platelet Estimate LOW Platelet Morphology Comment NORMAL Target Cells 1+ [place]-[employer] Bodies Acanthocytes OCC Keratocytes OCC Prothrombin Time 12.1 SEC Prothromb Time International 1.1 RATIO Ratio Activated Partial 24.5 SEC Thromboplast Time Sodium Level 144 MEQ/L Chloride Level 104 MEQ/L Carbon Dioxide Level 30.6 MEQ/L Anion Gap 9 MEQ/L Blood Urea Nitrogen 38 MG/DL Creatinine 1.38 MG/DL Estimat Glomerular Filtration 40 ML/MIN Rate Random Glucose 130 MG/DL Calcium Level 8.2 MG/DL Phosphorus Level 2.4 MG/DL Magnesium Level 1.5 MG/DL Total Bilirubin 1.1 MG/DL Aspartate Amino Transf 29 U/L (AST/SGOT) Alanine Aminotransferase 23 U/L (ALT/SGPT) Alkaline Phosphatase 101 U/L Total Protein 5.7 GM/DL Albumin 2.3 GM/DL Imaging Last Impressions Lung Scan-V Nuclear Medicine 12/09/16 0000 Signed Impressions: Service Date/Time: Friday, December 09, 2016 14:54 - CONCLUSION: Low probability for pulmonary embolism. Chaparro Baig MD Chest X-Ray 12/09/16 0000 Signed Impressions: Service Date/Time: Friday, December 09, 2016 10:12 - CONCLUSION: 1. Endotracheal tube 8 mm above the kaitlynn and could be retracted 3 cm. 2. Slight worsening airspace disease greater in the right lung. Chaparro Baig MD Lumbar Puncture Fluoroscopy 12/08/16 0000 Signed Impressions: Service Date/Time: December 16:10 - CONCLUSION: Uncomplicated fluoroscopically guided lumbar puncture with pressures as above. Dustin Hand MD Lower Extremity Ultrasound 12/08/16 0000 Signed Impressions: Service Date/Time: December 14:46 - CONCLUSION: Normal examination. Jamel Stevenson MD Abdomen Ultrasound 12/08/16 0000 Signed Impressions: Service Date/Time: December 14:15 - CONCLUSION: 1. No evidence of abdominal mass 2. Echogenic kidneys bilaterally compatible with medical renal disease. 3. Small bilateral effusions Dustin Hand MD Head CT 12/07/16 0000 Signed Impressions: Service Date/Time: Wednesday, December 07, 2016 12:10 - CONCLUSION: Negative for acute process.. Gurwinder Hernandez MD FACR Brain MRI 12/07/16 0000 Signed Impressions: Service Date/Time: Wednesday, December 07, 2016 15:03 - CONCLUSION: 1. Negative MRI of the brain. I do not see an etiology for the patient's metastatic disease. 2. I do not see obvious findings of a meningeal carcinomatosis either. Gurwinder Hernandez MD FACR Abdomen/Pelvis CT 12/07/16 0000 Signed Impressions: Service Date/Time: Wednesday, December 07, 2016 16:45 - CONCLUSION: 1. Abnormal lung bases with coarse interstitial changes suggesting fibrosis. 2. Abnormal left kidney. Pyelonephritis cannot be excluded without contrast. 3. The gallbladder appears prominent but unremarkable. 4. I do not see any etiology for the patient's abdominal pain. Gurwinder Hernandez MD FACR Objective Remarks GENERAL: Patient is 51 yo critically ill appearing intubated and sedated SKIN: Warm and dry. HEAD: Normocephalic. EYES: No scleral icterus. No injection or drainage. NECK: Supple, trachea midline. No JVD or lymphadenopathy. Orally intubated CARDIOVASCULAR: Tachycardic without murmurs, gallops, or rubs. RESPIRATORY: Breath sounds equal bilaterally. No accessory muscle use. GASTROINTESTINAL: Abdomen soft, mild tenderness on palpation. MUSCULOSKELETAL: No cyanosis, or edema. Neuro: Sedated, intubated A/P Assessment and Plan 1. VDRF 2. Leukocytosis ..trending down 3. Rule out aspiration pneumonia. 4. Anemia, thrombocytopenia r/o DIC 5. Acute kidney injury. 6. Encephalopathy 7 Bacterial Meningitis 8. Small cell lung cancer status post chemotherapy 9. Chronic hyponatremia. 10. 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 11 Hyperglycemia 12 Elevated AST 13. Hypertension. 14. GERD. 15. History of bronchial asthma. Plan Neuro: On Diprivan infusion for sedation Monitor neuro status closely and avoid sedatives. Place on Precedex drip and wean off Diprivan. CT brain and MRI brain negative for acute process EEG showed diffuse encephalopathy- on Keppra IV Q12, Decadron 10mg Q6 s/p LP 12/08 - clear CSF, WBC 978, TP:179, nl Glc, 96 Neutrophils. Continue with abx, Decadron 10mg Q6 Neuro: Dr. Howe Pulm: Continue with vent support and maintain sats above 92%. On AC RR 20, TV 500, PEEP:5, FIO2 55%. Decrease FIO2 45% as lazaro. Bronchodilators , ICU vent bundle. SBT as lazaro when appropriate. Check CXR/ABG V/Q scan- Low prob PE CV: On Lopressor 25mg Q12. monitor HR and BP and maintain MAP > 65 mmHg. Lactic acid: 1.8 Echo showed diffuse hypokinesis EF 25-30% : Monitor renal function, Is and Os and electrolyte replacement per protocol. Renal function improved with Cr: 1.38 from 1.52 with UO: 3850ml in 24hrs. Given Bumex 1mg x1 last night. Give Bumex 1mgIV x1 then Bumex drip 0.5mg/hr CT abd/pelvis : Pyelonephritis could not be excluded . US abdomen: No masses, medical renal disease GI: On Protonix 40 mg IV daily for GI prophylaxis. TF-Glucerna 1.5 @ 45ml/hr on Reglan 5mg Q8 PRN high residuals. ID: Continue with abx per ID (Cefepime, Flagyl, Diflucan, Rifampin) Strep pneumonia and Legionella urinary antigen negative. s/p LP 12/07, follow up on LP results- NGTD BC from 12/07: GNR. follow up on BC from 12/10 .WBC trending down Heme: Monitor CBC, coags, s/p transfusion 2 units of PRBC on arrival. Heme-Onc is following- Dr. Gama. s/p transfusion 1u PLT and 2u FFP yesterday. Further transfusion per heme. Endo: SSI with Accu-Cheks for glycemic control. GI prophylaxis with Protonix 40 mg daily and DVT prophylaxis with SCDs. Not on chemical anticoagulation prophylaxis due to anemia requiring blood transfusions and thrombocytopenia 3/2 Doppler US LE negative for DVT 3 V/Q scan low prob PE Lines: Right Infuse A port CCT 30 mins . Ryan Nunn MD Dec 12, 2016 08:11
--- NOTE | 2016-12-12 08:42 | HHI.PR ---
Subjective Remarks on dip Objective Vital Signs Date Time Temp Pulse Resp B/P Pulse Ox O2 Delivery O2 Flow Rate FiO2 12/12/16 07:26 91 45 12/12/16 06:00 85 12/12/16 05:00 20 12/12/16 04:19 97 55 12/12/16 04:00 97.9 80 20 137/94 98 12/12/16 04:00 80 12/12/16 04:00 55 12/12/16 02:00 80 12/12/16 01:00 95 55 12/12/16 00:00 82 12/12/16 00:00 55 12/12/16 00:00 98.8 82 20 119/74 94 12/11/16 22:14 93 55 12/11/16 22:00 89 12/11/16 21:21 20 12/11/16 20:00 98.6 103 22 127/75 93 12/11/16 20:00 103 12/11/16 20:00 55 12/11/16 19:32 93 55 12/11/16 18:00 105 12/11/16 16:00 112 12/11/16 16:00 98.7 112 35 141/94 95 12/11/16 16:00 45 12/11/16 14:35 95 55 12/11/16 14:00 114 12/11/16 12:00 98.1 102 27 149/96 96 12/11/16 12:00 45 12/11/16 12:00 90 12/11/16 10:00 98 12/11/16 08:54 90 55 I/O 12/11/16 12/11/16 12/11/16 12/12/16 12/12/16 12/12/16 07:00 15:00 23:00 07:00 15:00 23:00 Intake Total 892 ml 1206 ml 1582 ml 1006 ml Output Total 650 ml 850 ml 600 ml 2400 ml Balance 242 ml 356 ml 982 ml -1394 ml IV Total 588 ml 834 ml 963 ml 816 ml Tube Feeding 304 ml 372 ml 303 ml 130 ml FFP 256 ml Other 60 ml 60 ml Output Urine Total 650 ml 850 ml 600 ml 2400 ml # Bowel Movements 1 1 0 0 Result Diagram: 12/12/1622412/12/16224 Objective Remarks still heavily sedated toes down eyes disconjugate pupil = Assessment and Plan Assessment and Plan imp on abt and steroids cytology pend cont current rx and follow clinically cont keppra off acyclovir hsv neg i think you can lower steroids to just once a day at this point ards also see how does off sedatives if possible Dustin Howe MD Dec 12, 2016 08:42
[2016-12-12 08:48] LABS: BLOOD GAS BASE EXCESS 2.6 mmol/L (-2-2); BLOOD GAS CARBOXYHEMOGLOBIN 1.7 % (0-4); BLOOD GAS HCO3 27 mmol/L (22-26); BLOOD GAS METHEMOGLOBIN 1.1 % (0-2); BLOOD GAS O2 HGB SATURATION 89 % (90-100); BLOOD GAS OXYGEN CONTENT 13.6 Vol % (12.0-20.0); BLOOD GAS PCO2 41 mmHg (38-42); BLOOD GAS PO2 63 mmHg (61-120); BLOOD GAS TOTAL HGB 10.8 G/DL (12.0-16.0); TEMP CORR TO 98.6
[2016-12-12 08:49] LABS: CRITICAL VALUE YES; OXYGEN DEVICE VENTILATOR
[2016-12-12 08:50] LABS: DRAW SITE RT RADIAL; FIO2 55 %; NUMBER OF ARTERIAL PUNCTURES 1; STAT NO; ULNAR PULSE PRESENT; VENT SETTINGS AC/500/PEEP 5 RR 20
--- NOTE | 2016-12-12 08:51 | RADRPT ---
EXAM DATE/TIME: 12/12/2016 08:08 [place] COMPARISON: CHEST SINGLE AP, December 09, 2016, 10:12. INDICATIONS : Respiratory disease. MEDICAL HISTORY : Hypertension. Chronic obstructive pulmonary disease. Carcinoma, lung SURGICAL HISTORY : Breast augmentation. Infusaport. ENCOUNTER: Subsequent ACUITY: 1 week PAIN SCORE: Non-responsive. LOCATION: Bilateral chest FINDINGS: Portable AP views of the chest demonstrate a normal-sized cardiac silhouette. Endotracheal tube measu res 11 mm from the kaitlynn. Nasogastric tube courses beyond the GE junction. Right [place] dista l tip is at the cavoatrial junction. Patient is rotated and underinflated and there is a severe diffu se airspace consolidation bilaterally. Slightly improved in the right lower lung zone but increased i n the left upper lung zone. There is also a left pleural-based opacity. No pneumothorax is visualized . CONCLUSION: 1. Persistent severe diffuse bilateral airspace consolidation that appears slightly improved in the r ight lower lung zone but worsened in the left upper lung zone. 2. Left pleural effusion remains present. 3. Endotracheal tube tip measures only approximately 11 mm in the kaitlynn. Consider retraction. Bakari Charles MD on December 12, 2016 at 8:47 Board Certified Radiologist. This report was verified electronically.
[2016-12-12] MEDS: DEXMEDETOMIDINE INJ 50 ML IV SCH ×5 (09:13→21:47)
[2016-12-12] MEDS: PANTOPRAZOLE SODIUM 40 MG VIAL IV SCH (09:13)
[2016-12-12] MEDS: BUMETANIDE INJ 1 MG/4 ML VIAL IV PUSH SCH ×2 (09:14→18:18)
[2016-12-12] MEDS: RIFAMPIN 150 MG CAP PO SCH (09:15)
[2016-12-12] MEDS: CEFEPIME INJ 2,000 MG in SODIUM CHLORIDE 0.9% INJ 100 ML IV SCH ×2 (09:15→16:18)
[2016-12-12] MEDS: METOPROLOL TARTRATE 25 MG TAB PO SCH ×2 (09:15→19:47)
[2016-12-12] MEDS: FLUCONAZOLE 100 MG TAB PO SCH (09:16)
[2016-12-12] MEDS: CHLORHEXIDINE 0.12% (ORAL KIT) 15 ML CUP MT SCH ×2 (09:16→19:46)
--- NOTE | 2016-12-12 09:39 | HHI.IDPN ---
Subjective Subjective Remarks ID Coverage for Dr Fletcher is a 51-year-old female with past medical history significant for extensive small cell lung carcinoma with metastatic lesions in the liver diagnosed in September 2016. Patient undergoes chemotherapy last session on Nov 11 with last dose of Neulasta on Nov 11 (per Oncology). Admitted with severe sepsis. Also has meningitis based on LP, but C/S negative Growing GNB from BC from 12/07 11/10 On the vent and has tommie infiltrates WBC in ok, not neutropenic D/W RN Notes reviewed Temps ok Sedated on the vent Antibiotics Cefepime Flagyl Rifampin Fluconazole Flagyl Lines Port R upper chest Past Medical History reviewed Allergies: Coded Allergies: Lipitor (Verified Adverse Reaction, Severe, Myalgia, 12/07/16) Codeine (Verified Adverse Reaction, Intermediate, Sedation, 12/07/16) Uncoded Allergies: SEASONAL ALLERGIES (Allergy, Mild, 03/13/08) estroven (Adverse Reaction, Intermediate, raised BP, 06/12/15) Objective . Vital Signs Date Time Temp Pulse Resp B/P Pulse Ox O2 Delivery O2 Flow Rate FiO2 12/12/16 08:56 93 55 12/12/16 07:26 91 45 12/12/16 06:00 85 12/12/16 05:00 20 12/12/16 04:19 97 55 12/12/16 04:00 97.9 80 20 137/94 98 12/12/16 04:00 80 12/12/16 04:00 55 12/12/16 02:00 80 12/12/16 01:00 95 55 12/12/16 00:00 82 12/12/16 00:00 55 12/12/16 00:00 98.8 82 20 119/74 94 12/11/16 22:14 93 55 12/11/16 22:00 89 12/11/16 21:21 20 12/11/16 20:00 98.6 103 22 127/75 93 12/11/16 20:00 103 12/11/16 20:00 55 12/11/16 19:32 93 55 12/11/16 18:00 105 12/11/16 16:00 112 12/11/16 16:00 98.7 112 35 141/94 95 12/11/16 16:00 45 12/11/16 14:35 95 55 12/11/16 14:00 114 12/11/16 12:00 98.1 102 27 149/96 96 12/11/16 12:00 45 12/11/16 12:00 90 12/11/16 10:00 98 12/11/16 12/11/16 12/12/16 15:00 23:00 07:00 Intake Total 1206 ml 1582 ml 1006 ml Output Total 850 ml 600 ml 2400 ml Balance 356 ml 982 ml -1394 ml IV Total 834 ml 963 ml 816 ml Tube Feeding 372 ml 303 ml 130 ml FFP 256 ml Other 60 ml 60 ml Output Urine Total 850 ml 600 ml 2400 ml # Bowel Movements 1 0 0 . Laboratory Tests Test 12/11/16 12/11/16 12/11/16 12/12/16 03:24 11:55 12:30 02:25 White Blood Count 12.3 TH/MM3 12.0 TH/MM3 Red Blood Count 3.32 MIL/MM3 2.64 MIL/MM3 Hemoglobin 10.4 GM/DL 8.2 GM/DL Hematocrit 29.6 % 23.5 % Mean Corpuscular Volume 89.2 FL 89.0 FL Mean Corpuscular Hemoglobin 31.4 PG 30.9 PG Mean Corpuscular Hemoglobin 35.2 % 34.7 % Concent Red Cell Distribution Width 17.1 % 17.3 % Platelet Count 18 TH/MM3 79 TH/MM3 38 TH/MM3 Mean Platelet Volume 11.1 FL 10.8 FL Neutrophils (%) (Auto) 88.7 % 87.1 % Lymphocytes (%) (Auto) 6.9 % 8.6 % Monocytes (%) (Auto) 4.3 % 3.7 % Eosinophils (%) (Auto) 0.0 % 0.0 % Basophils (%) (Auto) 0.1 % 0.6 % Neutrophils # (Auto) 10.9 TH/MM3 10.4 TH/MM3 Lymphocytes # (Auto) 0.9 TH/MM3 1.0 TH/MM3 Monocytes # (Auto) 0.5 TH/MM3 0.4 TH/MM3 Eosinophils # (Auto) 0.0 TH/MM3 0.0 TH/MM3 Basophils # (Auto) 0.0 TH/MM3 0.1 TH/MM3 CBC Comment AUTO DIFF AUTO DIFF Differential Total Cells 100 Counted Neutrophils % (Manual) 91 % Lymphocytes % 8 % Monocytes % 1 % Neutrophils # (Manual) 11.2 TH/MM3 Differential Comment FINAL DIFF AUTO DIFF MANUAL CONFIRMED Platelet Estimate LOW LOW Platelet Morphology Comment NORMAL NORMAL Target Cells 2+ 1+ Tear Drop Cells 1+ Ovalocytes 1+ Keratocytes 1+ OCC Haptoglobin 265 MG/DL [place] Bodies Acanthocytes OCC Laboratory Tests Test 12/10/16 12/11/16 12/11/16 12/11/16 15:45 03:24 12:30 17:35 Potassium Level 3.6 MEQ/L 3.2 MEQ/L 3.8 MEQ/L Sodium Level 145 MEQ/L Chloride Level 105 MEQ/L Carbon Dioxide Level 26.4 MEQ/L Anion Gap 14 MEQ/L Blood Urea Nitrogen 32 MG/DL Creatinine 1.52 MG/DL Estimat Glomerular Filtration 36 ML/MIN Rate Random Glucose 134 MG/DL Calcium Level 8.1 MG/DL Phosphorus Level 2.7 MG/DL Magnesium Level 1.8 MG/DL Total Bilirubin 0.9 MG/DL Aspartate Amino Transf 39 U/L (AST/SGOT) Alanine Aminotransferase 25 U/L (ALT/SGPT) Alkaline Phosphatase 135 U/L Total Protein 5.6 GM/DL Albumin 2.0 GM/DL Lactate Dehydrogenase 507 U/L Test 12/12/16 02:25 Sodium Level 144 MEQ/L Potassium Level 3.3 MEQ/L Chloride Level 104 MEQ/L Carbon Dioxide Level 30.6 MEQ/L Anion Gap 9 MEQ/L Blood Urea Nitrogen 38 MG/DL Creatinine 1.38 MG/DL Estimat Glomerular Filtration 40 ML/MIN Rate Random Glucose 130 MG/DL Calcium Level 8.2 MG/DL Phosphorus Level 2.4 MG/DL Magnesium Level 1.5 MG/DL Total Bilirubin 1.1 MG/DL Aspartate Amino Transf 29 U/L (AST/SGOT) Alanine Aminotransferase 23 U/L (ALT/SGPT) Alkaline Phosphatase 101 U/L Total Protein 5.7 GM/DL Albumin 2.3 GM/DL Microbiology Date/Time Procedure Status Source Growth 12/10/16 08:44 Aerobic Blood Culture - Preliminary Resulted Blood Peripheral NO GROWTH IN 1 DAY 12/10/16 08:44 Anaerobic Blood Culture - Preliminary Resulted Blood Peripheral NO GROWTH IN 1 DAY 12/10/16 12:20 Aerobic Blood Culture - Preliminary Resulted Blood Other NO GROWTH IN 1 DAY 12/10/16 12:20 Anaerobic Blood Culture - Preliminary Resulted Blood Other NO GROWTH IN 1 DAY 12/10/16 15:30 Gram Stain - Final Complete Sputum Endotracheal 12/10/16 15:30 Sputum Culture - Final Complete Sputum Endotracheal NO GROWTH IN 48 HOURS. Imaging Last Impressio Last Impressions Lung Scan-VQ Nuclear Medicine 12/09/16 0000 Signed Impressions: Service Date/Time: Friday, December 09, 2016 14:54 - CONCLUSION: Low probability for pulmonary embolism. Chaparro Baig MD Chest X-Ray 12/09/16 Signed Impressions: Service Date/Time: Friday, December 09, 2016 10:12 - CONCLUSION: 1. Endotracheal tube 8 mm above the kaitlynn and could be retracted 3 cm. 2. Slight worsening airspace disease greater in the right lung. Chaparro Baig MD Lumbar Puncture Fluoroscopy 12/08/16 0000 Signed Impressions: Service Date/Time: December 16:10 - CONCLUSION: Uncomplicated fluoroscopically guided lumbar puncture with pressures as above. Dustin Hand MD Lower Extremity Ultrasound 12/08/16 Signed Impressions: Service Date/Time: December 14:46 - CONCLUSION: Normal examination. Jamel Stevenson MD Abdomen Ultrasound 12/08/16 Signed Impressions: Service Date/Time: December 14:15 - CONCLUSION: 1. No evidence of abdominal mass 2. Echogenic kidneys bilaterally compatible with medical renal disease. 3. Small bilateral effusions Dustin Hand MD Head CT 12/07/16 Signed Impressions: Service Date/Time: Wednesday, December 07, 2016 12:10 - CONCLUSION: Negative for acute process.. Gurwinder Hernandez MD FACR Brain MRI 12/07/16 0000 Signed Impressions: Service Date/Time: Wednesday, December 07, 2016 15:03 - CONCLUSION: 1. Negative MRI of the brain. I do not see an etiology for the patient's metastatic disease. 2. I do not see obvious findings of a meningeal carcinomatosis either. Gurwinder Hernandez MD FACR Abdomen/Pelvis CT 12/07/16 0000 Signed Impressions: Service Date/Time: Wednesday, December 07, 2016 16:45 - CONCLUSION: 1. Abnormal lung bases with coarse interstitial changes suggesting fibrosis. 2. Abnormal left kidney. Pyelonephritis cannot be excluded without contrast. 3. The gallbladder appears prominent but unremarkable. 4. I do not see any etiology for the patient's abdominal pain. Gurwinder Hernandez MD FACR Physical Exam GENERAL: Sedated on the vent, has alopecia, NAD SKIN: No rashes. Has dark reddish color all distal fingers and toes (baseline) HEAD: Atraumatic. Normocephalic. No temporal or scalp tenderness. Alopecia EYES: No petechia, no hemorrhage. No scleral icterus. No injection or drainage. ENT: Orally intubated, no nasal discharge NECK: Trachea midline. Supple, nontender, no meningeal signs. CARDIOVASCULAR: HS audible. Port no evidence of infection RESPIRATORY: Breath sounds equal bilaterally. Coarse BS tommie GASTROINTESTINAL: Abdomen soft,non tender, non distended. MUSCULOSKELETAL: Extremities without clubbing, cyanosis, or edema. No joint effusion. Dark reddish color all distal toes and fingers, (per , baseline, not new) NEUROLOGICAL: Sedated Psych: could not be assessed. LINE: IV line sites, port with no evidence of infection : Noriega in place, urine looks clear Assessment & Plan Remarks IMPRESSION GNR sepsis - ID pending; not growing well, growing in aerobic bottle Septic Shock with Multiorgan dysfunction syndrome (MODS) - BP better, off pressors Meningitis: bacterial. - CSF C/S negative Aspiration pneumonia. Acute metabolic encephalopathy: Meningitis, Sepsis, SIADH Acute renal failure likely prerenal or sepsis Immune compromised, Small cell lung cancer with metastasis Anemia acute onset. Recommendations: Continue Cefepime Continue Oral Diflucan Continue Flagyl Also on Rifampin Follow C/S Spoke with micro regarding GNR - still being worked up D/W RN Spoke with Radha Martin MD Dec 12, 2016 09:39
[2016-12-12] MEDS ORDERED: BUMETANIDE INJ 100 ML IV SCH (11:00)
--- NOTE | 2016-12-12 11:50 | PD.ONC.PN ---
Subjective Subjective Remarks Afebrile overnight. Patient intubated, sedated. Objective Data Date Time Temp Pulse Resp B/P Pulse Ox O2 Delivery O2 Flow Rate FiO2 12/12/16 11:39 55 12/12/16 11:02 96 55 12/12/16 08:56 93 55 12/12/16 07:26 91 45 12/12/16 06:00 85 12/12/16 05:00 20 12/12/16 04:19 97 55 12/12/16 04:00 97.9 80 20 137/94 98 12/12/16 04:00 80 12/12/16 04:00 55 12/12/16 02:00 80 12/12/16 01:00 95 55 12/12/16 00:00 82 12/12/16 00:00 55 12/12/16 00:00 98.8 82 20 119/74 94 12/11/16 22:14 93 55 12/11/16 22:00 89 12/11/16 21:21 20 12/11/16 20:00 98.6 103 22 127/75 93 12/11/16 20:00 103 12/11/16 20:00 55 12/11/16 19:32 93 55 12/11/16 18:00 105 12/11/16 16:00 112 12/11/16 16:00 98.7 112 35 141/94 95 12/11/16 16:00 45 12/11/16 14:35 95 55 12/11/16 14:00 114 12/11/16 12:00 98.1 102 27 149/96 96 12/11/16 12:00 45 12/11/16 12:00 90 12/12/16 12/12/16 12/12/16 07:00 15:00 23:00 Intake Total 1006 ml Output Total 2400 ml Balance -1394 ml Result Diagram: 12/12/1622412/12/16224 Laboratory Results Laboratory Tests Test 12/11/16 12/11/16 12/11/16 12/11/16 11:55 12:30 12:52 17:35 Platelet Count 79 TH/MM3 Haptoglobin 265 MG/DL Prothrombin Time 11.8 SEC Prothromb Time International 1.1 RATIO Ratio Activated Partial 25.2 SEC Thromboplast Time Fibrinogen 385 mg/dL Lactate Dehydrogenase 507 U/L Blood Bank Comment Potassium Level 3.8 MEQ/L Test 12/11/16 12/12/16 12/12/16 20:00 02:25 08:35 Blood Bank Comment White Blood Count 12.0 TH/MM3 Red Blood Count 2.64 MIL/MM3 Hemoglobin 8.2 GM/DL Hematocrit 23.5 % Mean Corpuscular Volume 89.0 FL Mean Corpuscular Hemoglobin 30.9 PG Mean Corpuscular Hemoglobin 34.7 % Concent Red Cell Distribution Width 17.3 % Platelet Count 38 TH/MM3 Mean Platelet Volume 10.8 FL Neutrophils (%) (Auto) 87.1 % Lymphocytes (%) (Auto) 8.6 % Monocytes (%) (Auto) 3.7 % Eosinophils (%) (Auto) 0.0 % Basophils (%) (Auto) 0.6 % Neutrophils # (Auto) 10.4 TH/MM3 Lymphocytes # (Auto) 1.0 TH/MM3 Monocytes # (Auto) 0.4 TH/MM3 Eosinophils # (Auto) 0.0 TH/MM3 Basophils # (Auto) 0.1 TH/MM3 CBC Comment AUTO DIFF Differential Comment AUTO DIFF CONFIRMED Platelet Estimate LOW Platelet Morphology Comment NORMAL Target Cells 1+ [place] Bodies Acanthocytes OCC Keratocytes OCC Prothrombin Time 12.1 SEC Prothromb Time International 1.1 RATIO Ratio Activated Partial 24.5 SEC Thromboplast Time Sodium Level 144 MEQ/L Potassium Level 3.3 MEQ/L Chloride Level 104 MEQ/L Carbon Dioxide Level 30.6 MEQ/L Anion Gap 9 MEQ/L Blood Urea Nitrogen 38 MG/DL Creatinine 1.38 MG/DL Estimat Glomerular Filtration 40 ML/MIN Rate Random Glucose 130 MG/DL Calcium Level 8.2 MG/DL Phosphorus Level 2.4 MG/DL Magnesium Level 1.5 MG/DL Total Bilirubin 1.1 MG/DL Aspartate Amino Transf 29 U/L (AST/SGOT) Alanine Aminotransferase 23 U/L (ALT/SGPT) Alkaline Phosphatase 101 U/L Total Protein 5.7 GM/DL Albumin 2.3 GM/DL Blood Gas Puncture Site RT RADIAL Blood Gas Patient Temperature 98.6 Blood Gas HCO3 27 mmol/L Blood Gas Base Excess 2.6 mmol/L Blood Gas Oxygen Saturation 89 % Arterial Blood pH 7.43 Arterial Blood Partial 41 mmHg Pressure CO2 Arterial Blood Partial 63 mmHg Pressure O2 Arterial Blood Oxygen Content 13.6 Vol % Arterial Blood 1.7 % Carboxyhemoglobin Arterial Blood Methemoglobin 1.1 % Blood Gas Hemoglobin 10.8 G/DL Oxygen Delivery Device VENTILATOR Blood Gas Ventilator Setting AC/500/PEEP 5 RR 20 Blood Gas Inspired Oxygen 55 % Culture Results Microbiology Date/Time Procedure Status Source Growth 12/10/16 08:44 Aerobic Blood Culture - Preliminary Resulted Blood Peripheral NO GROWTH IN 2 DAYS 12/10/16 08:44 Anaerobic Blood Culture - Preliminary Resulted Blood Peripheral NO GROWTH IN 2 DAYS 12/10/16 12:20 Aerobic Blood Culture - Preliminary Resulted Blood Other NO GROWTH IN 2 DAYS 12/10/16 12:20 Anaerobic Blood Culture - Preliminary Resulted Blood Other NO GROWTH IN 2 DAYS 12/10/16 15:30 Gram Stain - Final Complete Sputum Endotracheal 12/10/16 15:30 Sputum Culture - Final Complete Sputum Endotracheal NO GROWTH IN 48 HOURS. Imaging Studies Last 24 hours Impressions Chest X-Ray 12/12/16 0000 Signed Impressions: Service Date/Time: Monday, December 12, 2016 08:08 - CONCLUSION: 1. Persistent severe diffuse bilateral airspace consolidation that appears slightly improved in the right lower lung zone but worsened in the left upper lung zone. 2. Left pleural effusion remains present. 3. Endotracheal tube tip measures only approximately 11 mm in the kaitlynn. Consider retraction. Bakari Charles MD Administered Medications Medications (Trade) Dose Ordered Sig/Ermias Route PRN Reason Start Time Stop Time Status Last Admin Dose Admin Pantoprazole Sodium (Protonix Inj) 40 mg DAILY IV 12/07/16 16:15 12/12/16 09:13 Chlorhexidine Gluconate (Chlorhexidine 2% Cloth) 3 pack Taper DAILY@04 TOP 12/08/16 04:00 12/04/17 03:59 12/12/16 02:58 Insulin Human Regular (NovoLIN R SUPPLEMENTAL SCALE) 1 Q6H SQ 12/07/16 18:00 12/09/16 05:25 Fentanyl Citrate 50 mcg 50 mcg Q1H PRN IV PUSH PAIN 5-10 12/07/16 21:45 12/11/16 05:26 Phenylephrine HCl 40 mg/Dextrose 500 ml @ 0 mls/hr TITRATE IV 12/08/16 02:00 12/09/16 05:11 Potassium Chloride 100 ml @ 50 mls/hr Q2H PRN IV For Potassium 2.8 - 3.2 mEq/L 12/08/16 01:00 12/11/16 08:07 Potassium Chloride 100 ml @ 25 mls/hr UNSCH PRN IV For Potassium 3.3 - 3.5 mEq/L 12/08/16 01:00 12/10/16 10:50 Magnesium Sulfate 2 gm/Sodium Chloride 100 ml @ 50 mls/hr UNSCH PRN IV For Magnesium 1.2 - 1.6 mg/dL 12/08/16 01:00 12/08/16 02:37 Potassium Phosphate/Sodium Chloride (Potassium Phosphate Inj/NS 250 ml Inj) 260 ml @ 42 mls/hr UNSCH PRN IV SEE LABEL COMMENTS 12/08/16 01:00 12/12/16 05:51 Acetaminophen (Tylenol 650 Mg/ 20 ml Liq) 650 mg Q4H PRN TUBE TEMP >101 12/08/16 03:30 12/11/16 20:21 Chlorhexidine Gluconate 15 ml 15 ml BID@08,20 MT 12/08/16 08:00 12/12/16 09:16 Levetriacetam 1000 mg/Sodium Chloride 110 ml @ 420 mls/hr Q12H IV 12/09/16 03:00 12/12/16 02:58 Propofol (Diprivan 1000 Mg/100ml Inj) 100 ml @ 0 mls/hr TITRATE IV 12/09/16 00:45 12/12/16 10:16 Dexamethasone Sodium Phosphate (Decadron Inj) 10 mg Q6H IV PUSH 12/09/16 09:00 12/12/16 09:15 Metronidazole (Flagyl) 500 mg Q8HR PO 12/09/16 14:00 12/12/16 04:55 Fluconazole (Diflucan) 100 mg DAILY PO 12/09/16 11:00 12/12/16 09:16 Metoclopramide HCl (Reglan Inj) 5 mg Q8H PRN IV PUSH high residuals 12/10/16 07:15 12/11/16 20:44 Metoprolol Tartrate (Lopressor) 25 mg Q12HR PO 12/11/16 09:00 12/12/16 09:15 Morphine Sulfate (Morphine Inj) 1 mg Q4H PRN IV PUSH pain 12/11/16 11:15 12/12/16 09:13 Diphenhydramine HCl 25 mg 25 mg Q4H PRN PO BLOOD PRODUCT ADMINISTRATION 12/11/16 20:15 12/11/16 20:21 Dexmedetomidine HCl (Precedex Inj) 50 ml @ 0 mls/hr TITRATE IV 12/12/16 08:30 12/12/16 09:13 Bumetanide 1 mg 1 mg BID@09,18 IV PUSH 12/12/16 09:00 12/12/16 09:14 Bumetanide (Bumex Inj) 100 ml @ 2 mls/hr CONTINUOUS IV 12/12/16 11:00 12/12/16 10:44 Objective Remarks GENERAL: Supine female, intubated, sedated. SKIN: Warm and dry. HEAD: Normocephalic. EYES: No injection or drainage. NECK: Supple, trachea midline. CARDIOVASCULAR: +S1/S2 RESPIRATORY: anterior butler scattered rhonchi on mechanical ventilation. GASTROINTESTINAL: Abdomen soft, nondistended. EXTREMITIES: No cyanosis NEUROLOGICAL: intubated, sedated Assessment/Plan Problem List: (1) Sepsis Status: Acute Plan: --likely bacterial meningitis -- CSF gram stain shows no growth --on multiple abx as above, per ID. --U/A neg --CXR: shows bilateral airspace disease. last Neulasta shot was given on 11/16. (2) SCLC (small cell lung carcinoma) Status: Acute Plan: --s/p Carboplatin/CASING SEWER 16, last chemo given in early November (3) Normocytic anemia Status: Acute Plan: --transfuse as needed --monitor for bleeding (4) Thrombocytopenia Status: Acute Plan: -- Likely consumptive due to acute illness. -- Fibrinogen OK. -- Transfuse for bleeding or platelets less than 20K. (5) Acute renal failure Status: Acute Plan: --on IVF (6) Elevated LFTs Status: Acute Plan: --Abnormal LFTs likely secondary to acute illness. ++does have metastatic disease to the liver. Assessment 51y/o admitted with hypotension, lethargy, leukocytosis, now critically ill in [facility], intubated and on pressor support h/o metastatic SCLC Plan 1. no platelet transfusion needed at present 2. monitor CBC, coags 3. continue abx, supportive care Attending Statement The exam, history, and the medical decision-making described in the above note were completed with the assistance of the mid-level provider. I reviewed and agree with the findings presented. I attest that I had a [id number] encounter with the patient on the same day, and personally performed and documented my assessment and findings in the medical record. No evidence hemolysis. Platelets low due to DIC. Transfuse to keep Hb >7 and Platelets > 20 Problem Qualifiers (1) Sepsis: Qualified Code: A41.9 - Sepsis, due to unspecified organism Johanna Orozco Dec 12, 2016 11:50 Aakash Gama MD Dec 12, 2016 20:53
[2016-12-13] VITALS (21 sets, daily range): BP systolic 126–156; BP diastolic 84–100; PULSE 75–86; RESP 20; TEMP 98.9–100.8; O2SAT 97–100
[2016-12-13] MEDS: CEFEPIME INJ 2,000 MG in SODIUM CHLORIDE 0.9% INJ 100 ML IV SCH ×3 (00:57→16:32)
[2016-12-13] MEDS: DEXMEDETOMIDINE INJ 50 ML IV SCH ×6 (01:00→19:31)
[2016-12-13] MEDS: DEXAMETHASONE SOD PHOS 4 MG/ML VIAL IV PUSH SCH (01:11)
[2016-12-13] MEDS: levETIRAcetam INJ 1,000 MG in SODIUM CHLORIDE 0.9% INJ 100 ML IV SCH ×2 (01:11→15:21)
[2016-12-13] MEDS: POTASSIUM CHLOR 40 MEQ PREMIX 100 ML IV PRN ×2 (01:16→03:18)
[2016-12-13] MEDS: CHLORHEXIDINE GLUCONATE 2 % 1 PACK (2 CLOTHS) TOP SCH (03:13)
[2016-12-13] MEDS: metroNIDAZOLE 500 MG TAB PO SCH ×3 (05:22→21:22)
[2016-12-13] MEDS: INSULIN NovoLIN REGULAR SUPPLEMENTAL SCALE SQ SCH ×4 (05:24→17:34)
[2016-12-13 07:09] LABS: AUTOMATED NEUTROPHIL # 4.4 TH/MM3 (1.8-7.7); BASOPHIL % 0.3 % (0.0-2.0); EOSINOPHIL % 0.1 % (0.0-4.0); HEMATOCRIT 27.6 % (35.0-46.0); LYMPH % 24.2 % (9.0-44.0); LYMPHOCYTE # 1.6 TH/MM3 (1.0-4.8); MEAN CELL VOLUME 88.2 FL (80.0-100.0); MEAN CORPUSCULAR HGB CONC 35.1 % (32.0-36.0); MONO % 9.7 % (0.0-8.0); NEUT % 65.7 % (16.0-70.0); PLATELET COUNT 26 TH/MM3 (150-450); RED BLOOD COUNT 3.13 MIL/MM3 (4.00-5.30); RED CELL DISTRIBUTION WIDTH 16.5 % (11.6-17.2); WHITE BLOOD COUNT 6.7 TH/MM3 (4.0-11.0)
--- NOTE | 2016-12-13 07:09 | MB ---
cc: MAGNO PAGAN DATE OF CONSULTATION 12/12/2016 REASON FOR CONSULTATION Respiratory failure and pulmonary management. PRESENT ILLNESS This 51-year-old female with a past history of small cell lung cancer with metastatic disease to the liver and spine who received chemotherapy has been having hyponatremia. The patient also has a longstanding history of asthma and chronic bronchitis and presented to the emergency room with lethargy and altered mental status and apparently had received chemo just two days prior. Upon admission, the patient was noted to be dehydrated and hyponatremic and was tachycardiac and hypotensive. She was also running a fever and she was transferred to the unit and was noted to be having a hemoglobin of under 7. The patient had a CT of the brain and a chest x-ray which also showed interstitial infiltrates. She was given broad-spectrum antibiotic coverage and admitted. Following admission however, the patient went into progressive respiratory failure and hemoglobin did improve with transfusions, but the patient's other demonstrated evidence of acute kidney injury. The patient was hypoxic and required intubation and sedation on 12/09/16 and had to be sedated, placed on Andrew-Synephrine and bicarb drips and has been on antibiotic therapy and on ventilator support. Repeat chest x-rays over the past two days have shown bilateral patchy pulmonary infiltrates as well as effusions and she was hypoxic and tachypneic. C-PAP was tried, but she is still on 55% FIO2 and unable to wean off the ventilator. The temperature, however has dropped to normal. PAST HISTORY The patient's past history has included a history for: 1. Small cell lung cancer with metastatic disease to the liver and spine. 2. History of bronchial asthma and chronic bronchitis. 3. History of migraines. 4. History of hypertension. 5. Gastroesophageal reflux PAST SURGICAL HISTORY Includes: 1. Partial hysterectomy in 1999. 2. Breast implants in 3. Tftsvz-W-Ucay placement MEDICATIONS 1. Breo 100 mcg 1 puff daily 2. Amlodipine 5 mg a day 3. Singulair 10 mg a day 4. Ventolin 2 puffs p.r.n. 5. Protonix 40 mg a day FAMILY HISTORY Noncontributory HABITS The patient was a prior smoker. Does not drink alcohol. ALLERGIES LYRICA AND CODEINE SYSTEM REVIEW The patient is on ventilator support, unable to respond. PHYSICAL EXAMINATION This is an averagely built middle-aged lady who is intubated, sedated, tachypneic. VITAL SIGNS: Blood pressure was 110/60, pulse 105, respirations 28, temperature 98.5. HEENT: Head normocephalic. EYES: Pupils are reactive. Sclerae were injected. Tongue is moist. Throat has a few secretions. Ears have no inflammation. NECK: Supple. No bruits or thyroid enlargement. CHEST: Equal movements with scattered coarse wheezes throughout both lung butler with extensive bilateral crackles. HEART: The heart sounds are regular S1-S2 with no murmur. No S3. ABDOMEN: Soft and protuberant without masses. No organomegaly. Bowel sounds are faint. EXTREMITIES: No lesions. Peripheral pulses are diminished. Reflexes not elicited. The patient is sedated. Skin was dry and cool. IMPRESSION 1. Ventilator dependent respiratory failure. 2. Bilateral pneumonia and ARDS 3. Has severe anemia 4. Acute kidney injury, resolving. 5. Small-cell lung cancer status post chemotherapy. 6. SIADH 7. History of asthma and chronic bronchitis 8. Hypertension PLAN The patient will be continued on ventilator support. Sedation will be weaned down and hopefully FIO2 reduced to 40%. The patient has been placed on a rate of 20 and PRVC with a PEEP of 8. Chest x-ray to be repeated in the a.m. The patient will receive tube feedings and nebulized DuoNeb solution added every 6 hours. CBC and electrolytes are being monitored. Antibiotic therapy has been added for broad-spectrum coverage and severe sepsis and follow up chest x-ray in the a.m. as well. If it shows some improvement, attempts will be made to wean her down to C-PAP. Prognosis is quite guarded. Thank you Dr. Nunn for this consultation. MD KAUR Roger/MELANY /6:31 PM /6:53 AM
[2016-12-13 07:17] LABS: HEMO FLAGS AUTO DIFF
[2016-12-13 07:30] LABS: BICARBONATE 34.4 MEQ/L (21.0-32.0); MAGNESIUM 1.2 MG/DL (1.5-2.5); POTASSIUM 3.4 MEQ/L (3.5-5.1)
[2016-12-13] MEDS ORDERED: POTASSIUM PHOSPHATE INJ 15 MMOL in SODIUM CHLORIDE 0.9% INJ 150 ML IV ONE (07:45)
[2016-12-13 07:49] LABS: CALCIUM-PROTEIN CORRECTED 8.1 MG/DL (8.5-10.1)
[2016-12-13] MEDS ORDERED: MAGNESIUM SULFATE 1 GM PREMIX 100 ML IV ONE (08:00)
--- NOTE | 2016-12-13 08:01 | RADRPT ---
EXAM DATE/TIME: 12/13/2016 07:26 [facility] COMPARISON: CHEST SINGLE AP, December 12, 2016, 8:08. INDICATIONS : VDRF MEDICAL HISTORY : Carcinoma, lung. Hypertension. Cardiovascular disease SURGICAL HISTORY : Unobtainable. ENCOUNTER: Subsequent ACUITY: 1 week PAIN SCORE: Non-responsive. LOCATION: Bilateral chest FINDINGS: Portable AP view of the chest demonstrates a normal-sized cardiac silhouette. Endotracheal tube remai ns present with tip measuring approximately 11 mm in the kaitlynn. NG tube courses beyond the GE juncti on. Qomsyl-g-Fudv remains present. There is bilateral airspace consolidation predominantly in the mid and lower lung zones bilaterally. However, it has significantly improved compared to yesterday's exa mination. No pneumothorax is visualized. CONCLUSION: Significant interval improvement of the bilateral airspace consolidation. The bilateral consolidation is currently mild and lower lung zone predominant. Endotracheal tube tip remains 11 mm from the narciso na. Bakari Charles MD on December 13, 2016 at 7:58 Board Certified Radiologist. This report was verified electronically.
--- NOTE | 2016-12-13 08:04 | HHI.PR ---
Subjective Remarks on precedex Objective Vital Signs Date Time Temp Pulse Resp B/P Pulse Ox O2 Delivery O2 Flow Rate FiO2 12/13/16 06:00 85 12/13/16 04:02 99 50 12/13/16 04:00 84 12/13/16 04:00 99.2 84 20 144/100 99 12/13/16 04:00 50 12/13/16 02:00 85 12/13/16 01:03 99 50 12/13/16 00:15 99 50 12/13/16 00:00 50 12/13/16 00:00 99.2 86 20 147/100 99 12/13/16 00:00 86 12/12/16 22:00 87 12/12/16 20:10 98 50 12/12/16 20:00 99.5 86 21 159/107 99 12/12/16 20:00 50 12/12/16 20:00 86 12/12/16 18:00 85 12/12/16 16:28 98 55 12/12/16 16:00 55 12/12/16 16:00 100.5 80 20 145/92 98 12/12/16 16:00 80 12/12/16 14:00 82 12/12/16 13:45 97 55 12/12/16 12:00 84 12/12/16 12:00 55 12/12/16 12:00 98.6 84 21 132/80 95 12/12/16 11:39 55 12/12/16 11:02 96 55 12/12/16 10:00 85 12/12/16 08:56 93 55 I/O 12/12/16 12/12/16 12/12/16 12/13/16 12/13/16 12/13/16 07:00 15:00 23:00 07:00 15:00 23:00 Intake Total 1006 ml 1273 ml 413 ml 1419 ml Output Total 2400 ml 3250 ml 3515.0 ml 1335 ml Balance -1394 ml -1977 ml -3102.0 ml 84 ml Intake Oral 0 ml IV Total 816 ml 857 ml 353 ml 833 ml Tube Feeding 130 ml 326 ml 556 ml Other 60 ml 90 ml 60 ml 30 ml Output Urine Total 2400 ml 3250 ml 3335 ml 1335 ml Tube Feeding Residual Discard 180.0 ml # Bowel Movements 0 0 Result Diagram: 12/13/1662912/13/16629 Objective Remarks opens eyes on precedex not follow commands eyes more aligned pupil = Assessment and Plan Assessment and Plan imp on abt and steroids cytology pend still cont current rx and follow clinically will see how does in am off precedex cont keppra off acyclovir hsv neg i think you can lower steroids to just once a day at this point ards also see how does off sedatives if possible Dustin Howe MD Dec 13, 2016 08:04
--- NOTE | 2016-12-13 08:11 | HHI.CCPN ---
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 She presented to [facility] ED with altered mental status, lethargy and fever for the past couple days. Her last chemotherapy was two days ago however when the patient went to receive another session yesterday it was not given due to her condition and instead she was given IV hydration. On arrival to the ED, the patient was tachycardic with a heart rate of 110-120s and initially she was hypotensive with a systolic blood pressure 80s-90s. She also was found to have a temperature of 100.7 rectally. In the ED she was given 2 liter boluses of normal saline with improvement of her blood pressure to 141/ 86. Her laboratory data showed mild acute kidney injury with a creatinine level of 1.31 and hyponatremia with a sodium level of 131. In addition, the patient had significant leukocytosis with a WBC of 71.4 associated with bandemia 28. Also, her hemoglobin was 6.8 with hematocrit of 20.2. Two units of packed RBCs have been ordered by the ED physician. The patient received a Neulasta injection post her chemotherapy. Due to her altered mental status, a CT scan of the brain was obtained which was negative for acute process. The patient also had MRI of the brain which was negative for any metastatic disease. A chest x-ray in the ED showed Infusaport in good position and mild interstitial prominence. The patient received Vancomycin and cefepime in the ED , and a CT scan of the abdomen and pelvis has been ordered. Overall, history is limited as the patient is a poor historian. However, she is not complaining of any pain. 3/ Last night patient became tachycardic, hypoxic and worsening mental status she was subsequently intubated and placed on mechanical ventilation. She received additional 2L NS for hypotension and started on Neosyn 50 mics. s/p transfusion 2u PRBC yesterday for Hgb 6.8 her Hgb 11.2 this morning. 12/09 Patient remains sedated with Diprivan and intubated. On Neosyn 40 mics and bicarb drip. T:99.9 last night WBC trending down 24 today from 55. s/p LP showed clear CSF, WBC 978, TP:179 , nl glc 12/10 Patient is sedated with Diprivan and intubated. Off Neosyn. Afebrile. V/Q scaln yesterday low prob. BC from 12/07 GNR. 12/11 No acute events overnight. Sedated with Diprivan and intubated. Afebrile. WBC trending down. PLT 18 this morning. Tolerated CPAP x 4 hrs yesterday 12/12 Patient remains sedated and intubated. On ACV RR20, TV 500, PEEP:5, FIO2 55% . Afebrile. s/p transfusion 1u PLT and FFP yesterday per heme. 12/13 No acute events overnight. On Precedex infusion . CXR overall better today. Off Bumex drip. Afebrile. Objective Vital Signs Date Time Temp Pulse Resp B/P Pulse Ox O2 Delivery O2 Flow Rate FiO2 12/13/16 06:00 85 12/13/16 04:02 99 50 12/13/16 04:00 99.2 20 144/100 Intake and Output 12/12/16 12/12/16 12/13/16 08:00 16:00 00:00 Intake Total 1006 ml 1273 ml 413 ml Output Total 2400 ml 3250 ml 3515.0 ml Balance -1394 ml -1977 ml -3102.0 ml Result Diagram: 12/13/16 0630 12/13/16 0630 Other Results Laboratory Tests Test 12/12/16 12/12/16 12/13/16 08:35 18:35 06:30 Blood Gas Puncture Site RT RADIAL Blood Gas Patient Temperature 98.6 Blood Gas HCO3 27 mmol/L Blood Gas Base Excess 2.6 mmol/L Blood Gas Oxygen Saturation 89 % Arterial Blood pH 7.43 Arterial Blood Partial 41 mmHg Pressure CO2 Arterial Blood Partial 63 mmHg Pressure O2 Arterial Blood Oxygen Content 13.6 Vol % Arterial Blood 1.7 % Carboxyhemoglobin Arterial Blood Methemoglobin 1.1 % Blood Gas Hemoglobin 10.8 G/DL Oxygen Delivery Device VENTILATOR Blood Gas Ventilator Setting AC/500/PEEP 5 RR 20 Blood Gas Inspired Oxygen 55 % Potassium Level 3.0 MEQ/L 3.4 MEQ/L White Blood Count 6.7 TH/MM3 Red Blood Count 3.13 MIL/MM3 Hemoglobin 9.7 GM/DL Hematocrit 27.6 % Mean Corpuscular Volume 88.2 FL Mean Corpuscular Hemoglobin 31.0 PG Mean Corpuscular Hemoglobin 35.1 % Concent Red Cell Distribution Width 16.5 % Platelet Count 26 TH/MM3 Mean Platelet Volume 12.1 FL Neutrophils (%) (Auto) 65.7 % Lymphocytes (%) (Auto) 24.2 % Monocytes (%) (Auto) 9.7 % Eosinophils (%) (Auto) 0.1 % Basophils (%) (Auto) 0.3 % Neutrophils # (Auto) 4.4 TH/MM3 Lymphocytes # (Auto) 1.6 TH/MM3 Monocytes # (Auto) 0.7 TH/MM3 Eosinophils # (Auto) 0.0 TH/MM3 Basophils # (Auto) 0.0 TH/MM3 CBC Comment AUTO DIFF Sodium Level 144 MEQ/L Chloride Level 100 MEQ/L Carbon Dioxide Level 34.4 MEQ/L Anion Gap 10 MEQ/L Blood Urea Nitrogen 49 MG/DL Creatinine 1.59 MG/DL Estimat Glomerular Filtration 34 ML/MIN Rate Random Glucose 144 MG/DL Calcium Level 7.4 MG/DL Protein Corrected Calcium 8.1 MG/DL Phosphorus Level 2.1 MG/DL Magnesium Level 1.2 MG/DL Total Protein 5.9 GM/DL Imaging Last Impressions Chest X-Ray 12/12/16 0000 Signed Impressions: Service Date/Time: Monday, December 12, 2016 08:08 - CONCLUSION: 1. Persistent severe diffuse bilateral airspace consolidation that appears slightly improved in the right lower lung zone but worsened in the left upper lung zone. 2. Left pleural effusion remains present. 3. Endotracheal tube tip measures only approximately 11 mm in the kaitlynn. Consider retraction. Bakari Charles MD Lung Scan-VQ Nuclear Medicine 12/09/16 0000 Signed Impressions: Service Date/Time: Friday, December 09, 2016 14:54 - CONCLUSION: Low probability for pulmonary embolism. Chaparro Baig MD Lumbar Puncture Fluoroscopy 12/08/16 0000 Signed Impressions: Service Date/Time: December 16:10 - CONCLUSION: Uncomplicated fluoroscopically guided lumbar puncture with pressures as above. Dustin Hand MD Lower Extremity Ultrasound 12/08/16 0000 Signed Impressions: Service Date/Time: December 14:46 - CONCLUSION: Normal examination. Jamel Stevenson MD Abdomen Ultrasound 12/08/16 0000 Signed Impressions: Service Date/Time: December 14:15 - CONCLUSION: 1. No evidence of abdominal mass 2. Echogenic kidneys bilaterally compatible with medical renal disease. 3. Small bilateral effusions Dustin Hand MD Head CT 12/07/16 0000 Signed Impressions: Service Date/Time: Wednesday, December 07, 2016 12:10 - CONCLUSION: Negative for acute process.. Gurwinder Hernandez MD FACR Brain MRI 12/07/16 0000 Signed Impressions: Service Date/Time: Wednesday, December 07, 2016 15:03 - CONCLUSION: 1. Negative MRI of the brain. I do not see an etiology for the patient's metastatic disease. 2. I do not see obvious findings of a meningeal carcinomatosis either. Gurwinder Hernandez MD FACR Abdomen/Pelvis CT 12/07/16 0000 Signed Impressions: Service Date/Time: Wednesday, December 07, 2016 16:45 - CONCLUSION: 1. Abnormal lung bases with coarse interstitial changes suggesting fibrosis. 2. Abnormal left kidney. Pyelonephritis cannot be excluded without contrast. 3. The gallbladder appears prominent but unremarkable. 4. I do not see any etiology for the patient's abdominal pain. Gurwinder Hernandez MD FACR Objective Remarks GENERAL: Patient is 51 yo critically ill appearing intubated and sedated SKIN: Warm and dry. HEAD: Normocephalic. EYES: No scleral icterus. No injection or drainage. NECK: Supple, trachea midline. No JVD or lymphadenopathy. Orally intubated CARDIOVASCULAR: Tachycardic without murmurs, gallops, or rubs. RESPIRATORY: Breath sounds equal bilaterally. No accessory muscle use. GASTROINTESTINAL: Abdomen soft, mild tenderness on palpation. MUSCULOSKELETAL: No cyanosis, or edema. Neuro: Sedated, intubated A/P Assessment and Plan 1. VDRF 2. Leukocytosis ..trending down 3. Rule out aspiration pneumonia. 4. Anemia, thrombocytopenia r/o DIC 5. Acute kidney injury. 6. Encephalopathy 7 Bacterial Meningitis 8. Small cell lung cancer status post chemotherapy 9. Chronic hyponatremia. 10. 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 11 Hyperglycemia 12 Elevated AST 13. Hypertension. 14. GERD. 15. History of bronchial asthma. Plan Neuro: Off Diprivan infusion and now on Precedex infusion. Monitor neuro status closely and avoid sedatives. CT brain and MRI brain negative for acute process EEG showed diffuse encephalopathy- on Keppra IV Q12, Decadron 10mg Q6 s/p LP 12/08 - clear CSF, WBC 978, TP:179, nl Glc, 96 Neutrophils. Continue with abx, taper steroids- decrease Decadron 10mg BID Neuro: Dr. Howe Pulm: Continue with vent support and maintain sats above 92%. On AC RR 20, TV 500, PEEP:8, FIO2 50%. Decrease FIO2 40 % as lazaro. Bronchodilators , ICU vent bundle. SBT as lazaro when appropriate. CXR today overall better. Pulm is following- Dr. Sparrow. V/Q scan- Low prob PE CV: On Lopressor 25mg Q12. monitor HR and BP and maintain MAP > 65 mmHg. Lactic acid: 1.8 Echo showed diffuse hypokinesis EF 25-30% : Monitor renal function, Is and Os and electrolyte replacement per protocol. Will need K, Mg, Phos replacement today. Cr: 1.59 today from 1.38, UO: 7920 ml in 24 hrs Will d/c Bumex today given worsening renal function. CT abd/pelvis : Pyelonephritis could not be excluded . US abdomen: No masses, medical renal disease GI: On Protonix 40 mg IV daily for GI prophylaxis. TF-Glucerna 1.5 @ 45ml/hr on Reglan 5mg Q8 PRN high residuals. Colace/Senna for bowel regimen. ID: Continue with abx per ID (Cefepime, Flagyl, Diflucan, Rifampin) Strep pneumonia and Legionella urinary antigen negative. s/p LP 12/07, follow up on LP results- NGTD BC from 12/07: GNR. follow up on BC from 12/10 .WBC trending down Heme: Monitor CBC, coags, s/p transfusion 2 units of PRBC on arrival. Heme-Onc is following- Dr. Gama. Follow up on Cytology of CSF ( pending ) s/p transfusion 1u PLT and 2u FFP 12/11. Further transfusion per heme. PLT 26 this morning. H/H stable. Endo: SSI with Accu-Cheks for glycemic control. GI prophylaxis with Protonix 40 mg daily and DVT prophylaxis with SCDs. Not on chemical anticoagulation prophylaxis due to anemia requiring blood transfusions and thrombocytopenia 3/2 Doppler US LE negative for DVT 3/ V/Q scan low prob PE Lines: Right Infuse A port Consult palliative care to asses with goals of care CCT 30 mins . Ryan Nunn MD Dec 13, 2016 08:11
[2016-12-13 08:15] LABS: ACANTHOCYTES OCC (NORMAL); TARGET CELLS 2+ (NORMAL)
[2016-12-13] MEDS ORDERED: CALCIUM GLUCONATE INJ 1 GM in SODIUM CHLORIDE 0.9% INJ 100 ML IV ONE (08:15)
[2016-12-13 08:17] LABS: HELMET CELLS OCC (NORMAL); HOWELL-JOLLY BODIES PRESENT (NONE SEEN)
[2016-12-13 08:18] LABS: PLATELET ESTIMATE SMEAR LOW (NORMAL); PLATELET MORPHOLOGY ENLARGED (NORMAL); SCAN/DIFF AUTO DIFF CONFIRMED
[2016-12-13] MEDS: SENNOSIDES SYRUP 8.8 MG/5 ML CUP PO SCH (09:07)
[2016-12-13] MEDS: METOPROLOL TARTRATE 25 MG TAB PO SCH ×2 (09:08→21:22)
[2016-12-13] MEDS: DOCUSATE SODIUM 100 MG/10 ML UDC PO SCH ×2 (09:08→21:00)
[2016-12-13] MEDS: PANTOPRAZOLE SODIUM 40 MG VIAL IV SCH (09:08)
[2016-12-13] MEDS: CHLORHEXIDINE 0.12% (ORAL KIT) 15 ML CUP MT SCH ×2 (09:13→21:22)
[2016-12-13] MEDS: FLUCONAZOLE 100 MG TAB PO SCH (09:42)
--- NOTE | 2016-12-13 10:16 | PD.ONC.PN ---
Subjective Subjective Remarks Tmax 100.5 overnight. Patient awakens on precedex. Remains intubated. Not tracking with eyes or following commands. Objective Data Date Time Temp Pulse Resp B/P Pulse Ox O2 Delivery O2 Flow Rate FiO2 12/13/16 08:25 98 40 12/13/16 06:00 85 12/13/16 04:02 99 50 12/13/16 04:00 84 12/13/16 04:00 99.2 84 20 144/100 99 12/13/16 04:00 50 12/13/16 02:00 85 12/13/16 01:03 99 50 12/13/16 00:15 99 50 12/13/16 00:00 50 12/13/16 00:00 99.2 86 20 147/100 99 12/13/16 00:00 86 12/12/16 22:00 87 12/12/16 20:10 98 50 12/12/16 20:00 99.5 86 21 159/107 99 12/12/16 20:00 50 12/12/16 20:00 86 12/12/16 18:00 85 12/12/16 16:28 98 55 12/12/16 16:00 55 12/12/16 16:00 100.5 80 20 145/92 98 12/12/16 16:00 80 12/12/16 14:00 82 12/12/16 13:45 97 55 12/12/16 12:00 84 12/12/16 12:00 55 12/12/16 12:00 98.6 84 21 132/80 95 12/12/16 11:39 55 12/12/16 11:02 96 55 12/13/16 12/13/16 12/13/16 07:00 15:00 23:00 Intake Total 1419 ml Output Total 1335 ml Balance 84 ml Result Diagram: 12/13/1630 12/13/1630 Laboratory Results Laboratory Tests Test 12/12/16 12/13/16 18:35 06:30 Potassium Level 3.0 MEQ/L 3.4 MEQ/L White Blood Count 6.7 TH/MM3 Red Blood Count 3.13 MIL/MM3 Hemoglobin 9.7 GM/DL Hematocrit 27.6 % Mean Corpuscular Volume 88.2 FL Mean Corpuscular Hemoglobin 31.0 PG Mean Corpuscular Hemoglobin 35.1 % Concent Red Cell Distribution Width 16.5 % Platelet Count 26 TH/MM3 Mean Platelet Volume 12.1 FL Neutrophils (%) (Auto) 65.7 % Lymphocytes (%) (Auto) 24.2 % Monocytes (%) (Auto) 9.7 % Eosinophils (%) (Auto) 0.1 % Basophils (%) (Auto) 0.3 % Neutrophils # (Auto) 4.4 TH/MM3 Lymphocytes # (Auto) 1.6 TH/MM3 Monocytes # (Auto) 0.7 TH/MM3 Eosinophils # (Auto) 0.0 TH/MM3 Basophils # (Auto) 0.0 TH/MM3 CBC Comment AUTO DIFF Differential Comment AUTO DIFF CONFIRMED Platelet Estimate LOW Platelet Morphology Comment ENLARGED Target Cells 2+ Helmet Cells OCC Perera-Centrahoma Bodies PRESENT Acanthocytes OCC Sodium Level 144 MEQ/L Chloride Level 100 MEQ/L Carbon Dioxide Level 34.4 MEQ/L Anion Gap 10 MEQ/L Blood Urea Nitrogen 49 MG/DL Creatinine 1.59 MG/DL Estimat Glomerular Filtration 34 ML/MIN Rate Random Glucose 144 MG/DL Calcium Level 7.4 MG/DL Protein Corrected Calcium 8.1 MG/DL Phosphorus Level 2.1 MG/DL Magnesium Level 1.2 MG/DL Total Protein 5.9 GM/DL Culture Results Microbiology Date/Time Procedure Status Source Growth 12/10/16 12:20 Aerobic Blood Culture - Preliminary Resulted Blood Other NO GROWTH IN 2 DAYS 12/10/16 12:20 Anaerobic Blood Culture - Preliminary Resulted Blood Other NO GROWTH IN 2 DAYS 12/10/16 15:30 Gram Stain - Final Complete Sputum Endotracheal 12/10/16 15:30 Sputum Culture - Final Complete Sputum Endotracheal NO GROWTH IN 48 HOURS. Imaging Studies Last 24 hours Impressions Chest X-Ray 12/13/16 0000 Signed Impressions: Service Date/Time: Tuesday, December 13, 2016 07:26 - CONCLUSION: Significant interval improvement of the bilateral airspace consolidation. The bilateral consolidation is currently mild and lower lung zone predominant. Endotracheal tube tip remains 11 mm from the kaitlynn. Bakari Chrales MD Administered Medications Medications (Trade) Dose Ordered Sig/Ermias Route PRN Reason Start Time Stop Time Status Last Admin Dose Admin Pantoprazole Sodium (Protonix Inj) 40 mg DAILY IV 12/07/16 16:15 12/13/16 09:08 Chlorhexidine Gluconate (Chlorhexidine 2% Cloth) Taper DAILY@04 TOP 12/08/16 04:00 12/04/17 03:59 12/13/16 03:13 Insulin Human Regular (NovoLIN R SUPPLEMENTAL SCALE) 1 Q6H SQ 12/07/16 18:00 12/09/16 05:25 Fentanyl Citrate 50 mcg 50 mcg Q1H PRN IV PUSH PAIN 5-10 12/07/16 21:45 12/11/16 05:26 Phenylephrine HCl 40 mg/Dextrose 500 ml @ 0 mls/hr TITRATE IV 12/08/16 02:00 12/09/16 05:11 Potassium Chloride 100 ml @ 50 mls/hr Q2H PRN IV For Potassium 2.8 - 3.2 mEq/L 12/08/16 01:00 12/13/16 03:18 Potassium Chloride 100 ml @ 25 mls/hr UNSCH PRN IV For Potassium 3.3 - 3.5 mEq/L 12/08/16 01:00 12/10/16 10:50 Magnesium Sulfate 2 gm/Sodium Chloride 100 ml @ 50 mls/hr UNSCH PRN IV For Magnesium 1.2 - 1.6 mg/dL 12/08/16 01:00 12/08/16 02:37 Potassium Phosphate/Sodium Chloride (Potassium Phosphate Inj/NS 250 ml Inj) 260 ml @ 42 mls/hr UNSCH PRN IV SEE LABEL COMMENTS 12/08/16 01:00 12/12/16 05:51 Acetaminophen (Tylenol 650 Mg/ 20 ml Liq) 650 mg Q4H PRN TUBE TEMP >101 12/08/16 03:30 12/11/16 20:21 Chlorhexidine Gluconate 15 ml 15 ml BID@08,20 MT 12/08/16 08:00 12/13/16 09:13 Levetriacetam 1000 mg/Sodium Chloride 110 ml @ 420 mls/hr Q12H IV 12/09/16 03:00 12/13/16 01:11 Propofol (Diprivan 1000 Mg/100ml Inj) 100 ml @ 0 mls/hr TITRATE IV 12/09/16 00:45 12/12/16 10:16 Metronidazole (Flagyl) 500 mg Q8HR PO 12/09/16 14:00 12/13/16 05:22 Fluconazole (Diflucan) 100 mg DAILY PO 12/09/16 11:00 12/13/16 09:42 Metoclopramide HCl (Reglan Inj) 5 mg Q8H PRN IV PUSH high residuals 12/10/16 07:15 12/11/16 20:44 Metoprolol Tartrate (Lopressor) 25 mg Q12HR PO 12/11/16 09:00 12/13/16 09:08 Morphine Sulfate (Morphine Inj) 1 mg Q4H PRN IV PUSH pain 12/11/16 11:15 12/12/16 18:18 Diphenhydramine HCl 25 mg 25 mg Q4H PRN PO BLOOD PRODUCT ADMINISTRATION 12/11/16 20:15 12/11/16 20:21 Dexmedetomidine HCl 50 ml @ 0 mls/hr TITRATE IV 12/12/16 08:30 12/13/16 09:12 Cefepime HCl 2000 mg/Sodium Chloride 100 ml @ 200 mls/hr Q8H IV 12/12/16 16:00 12/13/16 09:08 Potassium Phosphate/Sodium Chloride (Potassium Phosphate Inj/NS Inj) 155 ml @ 38.75 mls/ hr ONCE ONCE IV 12/13/16 07:45 12/13/16 11:44 12/13/16 09:12 Sennosides (Senna Liq) 8.8 mg DAILY PO 12/13/16 09:00 12/13/16 09:07 Docusate Sodium (Colace Liq) 100 mg Q12HR PO 12/13/16 09:00 12/13/16 09:08 Objective Remarks GENERAL: Supine female, intubated. SKIN: Warm and dry. HEAD: Normocephalic. EYES: No injection or drainage. NECK: Supple, trachea midline. CARDIOVASCULAR: +S1/S2 RESPIRATORY: on mechanical ventilation. occasional rhonchi, anterior butler. GASTROINTESTINAL: Abdomen soft, nondistended. EXTREMITIES: No cyanosis NEUROLOGICAL: intubated, awake but does not follow commands or track with eyes. Assessment/Plan Problem List: (1) Sepsis Status: Acute Plan: --likely bacterial meningitis -- CSF gram stain shows no growth --on multiple abx as above, per ID. --U/A neg --CXR: shows bilateral airspace disease. last Neulasta shot was given on 11/16. (2) SCLC (small cell lung carcinoma) Status: Acute Plan: --s/p Carboplatin/INSOLE TACK PULLER HAND 16, last chemo given in early November (3) Normocytic anemia Status: Acute Plan: --transfuse as needed --monitor for bleeding (4) Thrombocytopenia Status: Acute Plan: -- Likely consumptive due to acute illness. -- Fibrinogen OK. -- Transfuse for bleeding or platelets less than 20K. (5) Acute renal failure Status: Acute Plan: --on IVF (6) Elevated LFTs Status: Acute Plan: --Abnormal LFTs likely secondary to acute illness. ++does have metastatic disease to the liver. Assessment 51y/o admitted with hypotension, lethargy, leukocytosis, now [place] [facility] [place] int[place]ated and on pressor support h/o metastatic SCLC Plan 1. continue antibiotics 2. monitor CBC 3. brother/ would like to have family meeting this afternoon to discuss patient's current condition and prognosis--will set up. Attending Statement The exam, history, and the medical decision-making described in the above note were completed with the assistance of the mid-level provider. I reviewed and agree with the findings presented. I attest that I had a [id number] encounter with the patient on the same day, and personally performed and documented my assessment and findings in the medical record remains critically ill with respiratory failure, sepsis and presumed meningitis. Thrombocytopenia due to sepsis/DIC/consumption. Fibrinogen preserved. check daily fibrinogen Transfuse to keep Hb> 7 and PLT > 20 Replace Magnesium and Phosp Long discussion with family regarding prognosis. They would like to continue to pursue aggressive care. Discussed with Dr. Ortiz Problem Qualifiers (1) Sepsis: Qualified Code: A41.9 - Sepsis, due to unspecified organism Johanna Orozco Dec 13, 2016 10:16 Aakash Gama MD Dec 13, 2016 20:06
[2016-12-13] MEDS: DEXAMETHASONE SOD PHOS 20 MG/5 ML VIAL IV PUSH SCH ×2 (11:18→21:00)
--- NOTE | 2016-12-13 11:28 | PD.CONS ---
Consult Service Palliative Care . Consult Requested By Dr. Ortiz . Primary Care Physician Adele Chow . Reason for Consultation a. To assist with evaluation and management of symptoms including: pain, dyspnea, anxiety b. To assist medical decision maker(s) with: better understanding of current medical conditions; weighing benefits/burdens of medical treatment options; making medical treatment decisions. . HPI History of Present Illness Ms. Mullins is a 51 year old female who presented to [facility] ED on 12/07/16 for evaluation of altered mental status, lethargy and fever. Ms. Mullins has a past medical history significant for extensive small cell lung carcinoma with metastatic lesions in the liver - diagnosed in September 2016. She underwent a CT-guided biopsy of the liver mass. Additionally, the patient was diagnosed with hyponatremia/SIADH and has been managed with sodium tablets. Ms. Mullins is a patient of Dr. Gama, oncology. During her last visit to the oncology center , the patient was weak and appeared dehydrated. She received IV fluids and was discharged home, chemotherapy was postponed. Was scheduled to begin another round of chemotherapy, but it was not administered given the patients poor condition and instead IVF were administered. Reporting recent history of nausea with vomiting and fevers. On arrival to the ED, the patient was tachycardic (HR [id number]) and hypotensive with a systolic blood pressure in the 80s to 90s. Additional PMH is significant for COPD, GERD, migraines, hypertension, Raynauds disease and bronchial asthma. Diagnostic findings in the ED: * Vital signs: Pulse 116, respirations 18, BP 92/63, oxygen saturation 98% on room air * Rectal temperature 100.7 * WBC: 71.4, hemoglobin 6.8, hematocrit 20.2, platelets 166 * Sodium: 131, potassium 3.6, chloride 101, carbon dioxide 18.9, glucose 83, calcium 6.8, magnesium 1.3 * BUN: 24, creatinine 1.31, GFR 43 * Total bilirubin: 0.3, AST 61, ALT 22, alkaline phosphatase 79 * Total protein: 5.4, albumin 2.3 * Lactic acid: 1.1 * C reactive protein: 22.00 * Blood culture: + gram-negative palak * Urinalysis with small amount of occult blood and rare bacteria. Urine culture : Negative * Chest x-ray: Mild interstitial prominence, new from the comparison study. * CT abdomen/pelvis: Abnormal lung bases with coarse interstitial changes suggesting fibrosis. Abnormal left kidney, pyelonephritis cannot be excluded without contrast. The gallbladder appears prominent and unremarkable. * Brain MRI: negative MRI of brain, no etiology for the patient's metastatic disease seen. No obvious findings of meningeal carcinomatosis. * CT brain: Negative for acute process. The patient had significant leukocytosis with a WBC of 71.4 with bandemia of 28. Dr. Gama, oncology felt the patient's leukocytosis was likely secondary to post chemotherapy Neupogen. The patient received IV fluids as well as IV cefepime and vancomycin in the emergency department. The patient received 2 units of PRBCs for H/H of 0.8/20.2. She was admitted for further evaluation and medical management of sepsis (likely bacterial meningitis), altered mental status and lung cancer. Infectious disease and oncology were consulted. The patient developed progressively worsening respiratory distress and decline in mental status overnight. She was subsequently intubated and placed on mechanical ablation. She received additional IVF for hypotension and was started on pressors. Neurology was consulted status post possible seizure activity. An EEG was consistent with diffuse encephalopathy. Patient was started on Keppra. Lumbar puncture was negative. Blood cultures growing gram negative rods. Patient remains on antibiotics per IDZerbaxa, Ampicillin, Vanco, Ceftriaxone, Acyclovir , Flagyl, Micafungin, Rifampin. Strep pneumonia and legionella urinary antigen negative. Echocardiogram on 12/09/16 showed diffuse hypokinesis with EF 25% to 30% 12/12/16 Patient remains sedated and intubated on mechanical ventilator. Patient was transfused with 1 unit platelets and FFP on 12/11/16. Follow-up chest x-ray today on 12/12/16 showing persistent severe diffuse bilateral airspace consolidation that appears slightly improved in the right lower lung zone but worsened in the left upper lung zone. Left pleural effusion remains present. V/Q scan showed low probability of pulmonary embolism. Pulmonology, Dr. Johnson, is following. Patient remains intubated today on Precedex. Intermittently febrile. She appears to be responding to antibiotic treatment, leukocytosis has resolved. WBC of 6.7 today. Worsening renal functioning, plan to discontinue Bumex. Creatinine today 1.59, previously 1.38 . Will need to replaces potassium, magnesium and phosphorus today. Family is meeting with oncology this afternoon to discuss medical treatment plan and overall prognosis. Palliative Care was consulted to assist with symptom management and to discuss with the patient/family the benefits and burdens of her current illnesses and the options regarding future care. Tentative plans to meet with family tomorrow morning 12/14/16. . Function/Cognitive Trajectory Patient resides with her spouse. Prior to this hospitalization the patient was independent with all ADLs and use no DME. . Review of Systems ROS Limitations: Intubated, Altered Mental Status, Unresponsive (Patient intubated, unable to provide information. No family present.) Past Family Social History Coded Allergies: Lipitor (Verified Adverse Reaction, Severe, Myalgia, 12/07/16) Codeine (Verified Adverse Reaction, Intermediate, Sedation, 12/07/16) Uncoded Allergies: SEASONAL ALLERGIES (Allergy, Mild, 03/13/08) estroven (Adverse Reaction, Intermediate, raised BP, 06/12/15) Past Medical History Metastatic small cell lung cancer to liver and spine COPD Bronchial asthma Raynaud disease Pneumonia SIADH History of migraine headaches GERD Hypertension . Past Surgical History Partial hysterectomy; 1999 Breast augmentation; 1992 [id number] placement Colonoscopy; 2014 Liver biopsy; 2016 . Reported Medications Singulair (Montelukast Sodium) 10 Mg Tab 10 Mg PO DAILY Flexeril (Cyclobenzaprine HCl) 10 Mg Tab 10 Mg PO HS Breo Ellipta Inh (Fluticasone/Vilanterol) 100-25 Mcg/Act Inh 1 Puff INH DAILY Xanax (Alprazolam) 0.5 Mg Tab 0.5 Mg PO HS PRN Pantoprazole (Pantoprazole Sodium) 40 Mg Tab 40 Mg PO BID Prochlorperazine Maleate 5 Mg Tab 5 Mg PO Q4-6H PRN Amlodipine (Amlodipine Besylate) 2.5 Mg Tab 2.5 Mg PO DAILY Mapap (Acetaminophen) 500 Mg Tab 1,000 Mg PO BID PRN Ventolin Hfa 18 GM Inh (Albuterol Sulfate) 90 Mcg/Act Aer 2 Puff INH Q6H PRN . Current Medications Medications (Trade) Dose Ordered Sig/Ermias Route Start Time Stop Time Status Last Admin (Protonix Inj) 40 mg DAILY IV 12/07/16 16:15 12/13/16 09:08 Miscellaneous Information 1 Q361D XX 12/07/16 16:15 (Chlorhexidine 2% Cloth) Taper DAILY@04 TOP 12/08/16 04:00 12/04/17 03:59 12/13/16 03:13 (Chlorhexidine 2% Cloth) 3 pack UNSCH PRN TOP 12/07/16 16:15 (D50w (Vial) Inj) 25 ml UNSCH PRN IV PUSH 12/07/16 17:15 (Glucagon Inj) 1 mg UNSCH PRN OTHER 12/07/16 17:15 (NovoLIN R SUPPLEMENTAL SCALE) 1 Q6H SQ 12/07/16 18:00 12/09/16 05:25 (fentaNYL INJ) 25 mcg Q2H PRN IV PUSH 12/07/16 21:45 Fentanyl Citrate 50 mcg 50 mcg Q1H PRN IV PUSH 12/07/16 21:45 12/11/16 05:26 (Neosynephrine Inj/D5W 500 ml Inj) 500 ml @ 0 mls/hr TITRATE IV 12/08/16 02:00 12/09/16 05:11 Terbutaline Sulfate 1 mg 1 mg UNSCH PRN SQ 12/08/16 01:00 Potassium Chloride 100 ml @ 50 mls/hr Q2H PRN IV 12/08/16 01:00 12/13/16 03:18 (KCl 20 Meq Premix Inj) 100 ml @ 50 mls/hr Q2H PRN IV 12/08/16 01:00 Potassium Chloride 40 meq 40 meq UNSCH PRN PO/TUBE 12/08/16 01:00 Potassium Chloride 100 ml @ 25 mls/hr UNSCH PRN IV 12/08/16 01:00 12/10/16 10:50 Potassium Chloride 100 ml @ 50 mls/hr Q2H PRN IV 12/08/16 01:00 (Magnesium Sulfate Inj/NS Inj) 100 ml @ 50 mls/hr UNSCH PRN IV 12/08/16 01:00 Magnesium Oxide 800 mg 800 mg UNSCH PRN PO 12/08/16 01:00 (Magnesium Sulfate Inj/NS Inj) 100 ml @ 50 mls/hr UNSCH PRN IV 12/08/16 01:00 12/08/16 02:37 Potassium Phosphate 2000 mg 2,000 mg Q4H PRN PO 12/08/16 01:00 (Sodium Phosphate Inj/NS 250 ml Inj) 250 ml @ 42 mls/hr UNSCH PRN IV 12/08/16 01:00 (KCl 40 Meq/30 ml Liq) 40 meq UNSCH PRN PO/TUBE 12/08/16 01:00 Potassium Phosphate 2000 mg 2,000 mg UNSCH PRN PO/TUBE 12/08/16 01:00 Potassium Phosphate 30 mmol/ Sodium Chloride 260 ml @ 42 mls/hr UNSCH PRN IV 12/08/16 01:00 12/12/16 05:51 (fentaNYL DRIP) 250 ml @ 0 mls/hr TITRATE IV 12/08/16 03:30 (Tylenol 650 Mg/ 20 ml Liq) 650 mg Q4H PRN TUBE 12/08/16 03:30 12/11/16 20:21 (Peridex 0.12% Liq) 15 ml BID@08,20 MT 12/08/16 08:00 12/13/16 09:13 Lorazepam 1 mg 1 mg Q4H PRN IV PUSH 12/08/16 14:15 Levetriacetam 1000 mg/Sodium Chloride 110 ml @ 420 mls/hr Q12H IV 12/09/16 03:00 12/13/16 01:11 (Diprivan 1000 Mg/100ml Inj) 100 ml @ 0 mls/hr TITRATE IV 12/09/16 00:45 12/12/16 10:16 (Flagyl) 500 mg Q8HR PO 12/09/16 14:00 12/13/16 05:22 (Diflucan) 100 mg DAILY PO 12/09/16 11:00 12/13/16 09:42 (Reglan Inj) 5 mg Q8H PRN IV PUSH 12/10/16 07:15 12/11/16 20:44 (Lopressor) 25 mg Q12HR PO 12/11/16 09:00 12/13/16 09:08 (Morphine Inj) 1 mg Q4H PRN IV PUSH 12/11/16 11:15 12/12/16 18:18 Diphenhydramine HCl 25 mg 25 mg Q4H PRN PO 12/11/16 20:15 12/11/16 20:21 Dexmedetomidine HCl 50 ml @ 0 mls/hr TITRATE IV 12/12/16 08:30 12/13/16 09:12 Cefepime HCl 2000 mg/Sodium Chloride 100 ml @ 200 mls/hr Q8H IV 12/12/16 16:00 12/13/16 09:08 (Potassium Phosphate Inj/NS Inj) 155 ml @ 38.75 mls/ hr ONCE ONCE IV 12/13/16 07:45 12/13/16 11:44 12/13/16 09:12 (Decadron Inj) 10 mg BID IV PUSH 12/13/16 09:00 (Senna Liq) 8.8 mg DAILY PO 12/13/16 09:00 12/13/16 09:07 (Colace Liq) 100 mg Q12HR PO 12/13/16 09:00 12/13/16 09:08 . Family History Patient's mother is alive with Alzheimer's disease, HTN and thyroid disease. Father with a history of [place]. . Substance Use Tobacco: Chronic long-term tobacco use > 40 years. Alcohol: Former alcohol consumption Prescription med abuse: None known Illicits: None known . Psychosocial History Patient was born and raised in [place], [place]. She is , currently living in [place]. She has no children. The patient has a college degree but is unemployed at this time. Patient has 2 siblings, Natalee and José, who live locally. . Spiritual/Cultural Factors Bahai teofilo . Documented care wishes: None available at this time. . Today's verbally stated goals: Patient is currently intubated and does not have capacity to participate in health care decision making. It is unclear at this time if the patient will regain capacity. . Family/friends goals: Patient's brother and sister both verbalize understanding that the patient's overall prognosis is poor. They state that they do not wish to "prolong" the patient suffering. Goals pending family meeting tomorrow 12/14/16. . Ethical and Legal Issues Per [place] statutes in the absence of written advanced directives healthcare proxy decision-making falls to the patient's , Bakari Mullins. . Physical Exam Vital Signs Date Time Temp Pulse Resp B/P Pulse Ox O2 Delivery O2 Flow Rate FiO2 12/13/16 08:25 98 40 12/13/16 06:00 85 12/13/16 04:02 99 50 12/13/16 04:00 84 12/13/16 04:00 99.2 84 20 144/100 99 12/13/16 04:00 50 12/13/16 02:00 85 12/13/16 01:03 99 50 12/13/16 00:15 99 50 12/13/16 00:00 50 12/13/16 00:00 99.2 86 20 147/100 99 12/13/16 00:00 86 12/12/16 22:00 87 12/12/16 20:10 98 50 12/12/16 20:00 99.5 86 21 159/107 99 12/12/16 20:00 50 12/12/16 20:00 86 12/12/16 18:00 85 12/12/16 16:28 98 55 12/12/16 16:00 55 12/12/16 16:00 100.5 80 20 145/92 98 12/12/16 16:00 80 12/12/16 14:00 82 12/12/16 13:45 97 55 12/12/16 12:00 84 12/12/16 12:00 55 12/12/16 12:00 98.6 84 21 132/80 95 12/12/16 11:39 55 12/12/16 11:02 96 55 12/12/16 10:00 85 . 12/12/16 12/13/16 19:00 07:00 Intake Total 1273 ml 1832 ml Output Total 3250 ml 4850.0 ml Balance -1977 ml -3018.0 ml Intake Oral 0 ml IV Total 857 ml 1186 ml Tube Feeding 326 ml 556 ml Other 90 ml 90 ml Output Urine Total 3250 ml 4670 ml Tube Feeding Residual Discard 180.0 ml # Bowel Movements 0 . Exam CONSTITUTIONAL/GENERAL: This is an adequately nourished, middle aged female patient intubated and on mechanical ventilator. TUBES/LINES/DRAINS: Noriega, OG tube, ETT, Port, PIV SKIN: No jaundice, rashes, or lesions. No wounds seen anteriorly. Skin temperature warm to touch HEAD: Atraumatic. Normocephalic. EYES: Pupils equal and round and sluggish. No scleral icterus. No injection or drainage. Fundi not examined. ENT:Nose without bleeding or purulent drainage. Orotracheally intubated. NECK: Trachea midline. Supple, nontender. No palpable thyroid enlargement or nodularity. CARDIOVASCULAR: Regular rate and rhythm without murmurs, gallops, or rubs. No JVD. Peripheral pulses symmetric. RESPIRATORY/CHEST: Orotracheally intubated on mechanical ventilator. Wheezing and upper lobes bilaterally, scattered rhonchi anterior butler. GASTROINTESTINAL: Abdomen soft, non-tender, nondistended. No guarding. Bowel sounds present. GENITOURINARY: Without palpable bladder distension. Noriega catheter in place. MUSCULOSKELETAL: Extremities without clubbing, cyanosis, or edema. No mottling or clubbing. LYMPHATICS: No palpable cervical or supraclavicular adenopathy. NEUROLOGICAL: Intubated, opens eyes to verbal stimuli. Does not follow commands. Does not track with eyes. PSYCHIATRIC: Unable to assess given patient's current clinical condition. . Diagnostic Tests Laboratory Laboratory Tests Test 12/10/16 12/10/16 12/11/16 12/11/16 15:45 16:00 03:24 08:14 Potassium Level 3.6 MEQ/L 3.2 MEQ/L (3.5-5.1) (3.5-5.1) Heparin-Induced Platelet Ab NEGATIVE (Rosa) (NEGATIVE) HIPA Patient Optical Density 0.181 O.D. (0.000-0.300) White Blood Count 12.3 TH/MM3 (4.0-11.0) Red Blood Count 3.32 MIL/MM3 (4.00-5.30) Hemoglobin 10.4 GM/DL (11.6-15.3) Hematocrit 29.6 % (35.0-46.0) Mean Corpuscular Volume 89.2 FL (80.0-100.0) Mean Corpuscular Hemoglobin 31.4 PG (27.0-34.0) Mean Corpuscular Hemoglobin 35.2 % Concent (32.0-36.0) Red Cell Distribution Width 17.1 % (11.6-17.2) Platelet Count 18 TH/MM3 (150-450) Mean Platelet Volume 11.1 FL (7.0-11.0) Neutrophils (%) (Auto) 88.7 % (16.0-70.0) Lymphocytes (%) (Auto) 6.9 % (9.0-44.0) Monocytes (%) (Auto) 4.3 % (0.0-8.0) Eosinophils (%) (Auto) 0.0 % (0.0-4.0) Basophils (%) (Auto) 0.1 % (0.0-2.0) Neutrophils # (Auto) 10.9 TH/MM3 (1.8-7.7) Lymphocytes # (Auto) 0.9 TH/MM3 (1.0-4.8) Monocytes # (Auto) 0.5 TH/MM3 (0-0.9) Eosinophils # (Auto) 0.0 TH/MM3 (0-0.4) Basophils # (Auto) 0.0 TH/MM3 (0-0.2) CBC Comment AUTO DIFF Differential Total Cells 100 Counted Neutrophils % (Manual) 91 % (16-70) Lymphocytes % 8 % (9-44) Monocytes % 1 % (0-8) Neutrophils # (Manual) 11.2 TH/MM3 (1.8-7.7) Differential Comment FINAL DIFF MANUAL Platelet Estimate LOW (NORMAL) Platelet Morphology Comment NORMAL (NORMAL) Target Cells 2+ (NORMAL) Tear Drop Cells 1+ (NORMAL) Ovalocytes 1+ (NORMAL) Keratocytes 1+ (NORMAL) Sodium Level 145 MEQ/L (136-145) Chloride Level 105 MEQ/L (98-107) Carbon Dioxide Level 26.4 MEQ/L (21.0-32.0) Anion Gap 14 MEQ/L (5-15) Blood Urea Nitrogen 32 MG/DL (7-18) Creatinine 1.52 MG/DL (0.50-1.00) Estimat Glomerular Filtration 36 ML/MIN (>89) Rate Random Glucose 134 MG/DL (74-106) Calcium Level 8.1 MG/DL (8.5-10.1) Phosphorus Level 2.7 MG/DL (2.5-4.9) Magnesium Level 1.8 MG/DL (1.5-2.5) Total Bilirubin 0.9 MG/DL (0.2-1.0) Aspartate Amino Transf 39 U/L (15-37) (AST/SGOT) Alanine Aminotransferase 25 U/L (10-53) (ALT/SGPT) Alkaline Phosphatase 135 U/L (45-117) Total Protein 5.6 GM/DL (6.4-8.2) Albumin 2.0 GM/DL (3.4-5.0) Blood Bank Comment Test 12/11/16 12/11/16 12/11/16 12/11/16 11:55 12:30 12:52 17:35 Platelet Count 79 TH/MM3 (150-450) Haptoglobin 265 MG/DL (30-200) Prothrombin Time 11.8 SEC (9.8-11.6) Prothromb Time International 1.1 RATIO Ratio Activated Partial 25.2 SEC Thromboplast Time (24.3-30.1) Fibrinogen 385 mg/dL (181-393) Lactate Dehydrogenase 507 U/L (84-246) Blood Bank Comment Potassium Level 3.8 MEQ/L (3.5-5.1) Test 12/11/16 12/12/16 12/12/16 12/12/16 20:00 02:25 08:35 18:35 Blood Bank Comment White Blood Count 12.0 TH/MM3 (4.0-11.0) Red Blood Count 2.64 MIL/MM3 (4.00-5.30) Hemoglobin 8.2 GM/DL (11.6-15.3) Hematocrit 23.5 % (35.0-46.0) Mean Corpuscular Volume 89.0 FL (80.0-100.0) Mean Corpuscular Hemoglobin 30.9 PG (27.0-34.0) Mean Corpuscular Hemoglobin 34.7 % Concent (32.0-36.0) Red Cell Distribution Width 17.3 % (11.6-17.2) Platelet Count 38 TH/MM3 (150-450) Mean Platelet Volume 10.8 FL (7.0-11.0) Neutrophils (%) (Auto) 87.1 % (16.0-70.0) Lymphocytes (%) (Auto) 8.6 % (9.0-44.0) Monocytes (%) (Auto) 3.7 % (0.0-8.0) Eosinophils (%) (Auto) 0.0 % (0.0-4.0) Basophils (%) (Auto) 0.6 % (0.0-2.0) Neutrophils # (Auto) 10.4 TH/MM3 (1.8-7.7) Lymphocytes # (Auto) 1.0 TH/MM3 (1.0-4.8) Monocytes # (Auto) 0.4 TH/MM3 (0-0.9) Eosinophils # (Auto) 0.0 TH/MM3 (0-0.4) Basophils # (Auto) 0.1 TH/MM3 (0-0.2) CBC Comment AUTO DIFF Differential Comment AUTO DIFF CONFIRMED Platelet Estimate LOW (NORMAL) Platelet Morphology Comment NORMAL (NORMAL) Target Cells 1+ (NORMAL) Perera-Crescent Bar Bodies (NONE SEEN) Acanthocytes OCC (NORMAL) Keratocytes OCC (NORMAL) Prothrombin Time 12.1 SEC (9.8-11.6) Prothromb Time International 1.1 RATIO Ratio Activated Partial 24.5 SEC Thromboplast Time (24.3-30.1) Sodium Level 144 MEQ/L (136-145) Potassium Level 3.3 MEQ/L 3.0 MEQ/L (3.5-5.1) (3.5-5.1) Chloride Level 104 MEQ/L (98-107) Carbon Dioxide Level 30.6 MEQ/L (21.0-32.0) Anion Gap 9 MEQ/L (5-15) Blood Urea Nitrogen 38 MG/DL (7-18) Creatinine 1.38 MG/DL (0.50-1.00) Estimat Glomerular Filtration 40 ML/MIN (>89) Rate Random Glucose 130 MG/DL (74-106) Calcium Level 8.2 MG/DL (8.5-10.1) Phosphorus Level 2.4 MG/DL (2.5-4.9) Magnesium Level 1.5 MG/DL (1.5-2.5) Total Bilirubin 1.1 MG/DL (0.2-1.0) Aspartate Amino Transf 29 U/L (15-37) (AST/SGOT) Alanine Aminotransferase 23 U/L (10-53) (ALT/SGPT) Alkaline Phosphatase 101 U/L (45-117) Total Protein 5.7 GM/DL (6.4-8.2) Albumin 2.3 GM/DL (3.4-5.0) Blood Gas Puncture Site RT RADIAL Blood Gas Patient Temperature 98.6 Blood Gas HCO3 27 mmol/L (22-26) Blood Gas Base Excess 2.6 mmol/L (-2-2) Blood Gas Oxygen Saturation 89 % (90-100) Arterial Blood pH 7.43 (7.380-7.420) Arterial Blood Partial 41 mmHg (38-42) Pressure CO2 Arterial Blood Partial 63 mmHg Pressure O2 (61-120) Arterial Blood Oxygen Content 13.6 Vol % (12.0-20.0) Arterial Blood 1.7 % (0-4) Carboxyhemoglobin Arterial Blood Methemoglobin 1.1 % (0-2) Blood Gas Hemoglobin 10.8 G/DL (12.0-16.0) Oxygen Delivery Device VENTILATOR Blood Gas Ventilator Setting AC/500/PEEP 5 RR 20 Blood Gas Inspired Oxygen 55 % Test 12/13/16 06:30 White Blood Count 6.7 TH/MM3 (4.0-11.0) Red Blood Count 3.13 MIL/MM3 (4.00-5.30) Hemoglobin 9.7 GM/DL (11.6-15.3) Hematocrit 27.6 % (35.0-46.0) Mean Corpuscular Volume 88.2 FL (80.0-100.0) Mean Corpuscular Hemoglobin 31.0 PG (27.0-34.0) Mean Corpuscular Hemoglobin 35.1 % Concent (32.0-36.0) Red Cell Distribution Width 16.5 % (11.6-17.2) Platelet Count 26 TH/MM3 (150-450) Mean Platelet Volume 12.1 FL (7.0-11.0) Neutrophils (%) (Auto) 65.7 % (16.0-70.0) Lymphocytes (%) (Auto) 24.2 % (9.0-44.0) Monocytes (%) (Auto) 9.7 % (0.0-8.0) Eosinophils (%) (Auto) 0.1 % (0.0-4.0) Basophils (%) (Auto) 0.3 % (0.0-2.0) Neutrophils # (Auto) 4.4 TH/MM3 (1.8-7.7) Lymphocytes # (Auto) 1.6 TH/MM3 (1.0-4.8) Monocytes # (Auto) 0.7 TH/MM3 (0-0.9) Eosinophils # (Auto) 0.0 TH/MM3 (0-0.4) Basophils # (Auto) 0.0 TH/MM3 (0-0.2) CBC Comment AUTO DIFF Differential Comment AUTO DIFF CONFIRMED Platelet Estimate LOW (NORMAL) Platelet Morphology Comment ENLARGED (NORMAL) Target Cells 2+ (NORMAL) Helmet Cells OCC (NORMAL) Perera-Crescent Bar Bodies PRESENT (NONE SEEN) Acanthocytes OCC (NORMAL) Sodium Level 144 MEQ/L (136-145) Potassium Level 3.4 MEQ/L (3.5-5.1) Chloride Level 100 MEQ/L (98-107) Carbon Dioxide Level 34.4 MEQ/L (21.0-32.0) Anion Gap 10 MEQ/L (5-15) Blood Urea Nitrogen 49 MG/DL (7-18) Creatinine 1.59 MG/DL (0.50-1.00) Estimat Glomerular Filtration 34 ML/MIN (>89) Rate Random Glucose 144 MG/DL (74-106) Calcium Level 7.4 MG/DL (8.5-10.1) Protein Corrected Calcium 8.1 MG/DL (8.5-10.1) Phosphorus Level 2.1 MG/DL (2.5-4.9) Magnesium Level 1.2 MG/DL (1.5-2.5) Total Protein 5.9 GM/DL (6.4-8.2) . Result Diagram: 12/13/16 0630 12/13/16 0630 Microbiology Microbiology Date/Time Procedure Status Source Growth 12/10/16 12:20 Aerobic Blood Culture - Preliminary Resulted Blood Other NO GROWTH IN 2 DAYS 12/10/16 12:20 Anaerobic Blood Culture - Preliminary Resulted Blood Other NO GROWTH IN 2 DAYS 12/10/16 15:30 Gram Stain - Final Complete Sputum Endotracheal 12/10/16 15:30 Sputum Culture - Final Complete Sputum Endotracheal NO GROWTH IN 48 HOURS. . Imaging Last 72 hours Impressions Chest X-Ray 12/13/16 0000 Signed Impressions: Service Date/Time: Tuesday, December 13, 2016 07:26 - CONCLUSION: Significant interval improvement of the bilateral airspace consolidation. The bilateral consolidation is currently mild and lower lung zone predominant. Endotracheal tube tip remains 11 mm from the kaitlynn. Bakari Charles MD Chest X-Ray 12/12/16 0000 Signed Impressions: Service Date/Time: Monday, December 12, 2016 08:08 - CONCLUSION: 1. Persistent severe diffuse bilateral airspace consolidation that appears slightly improved in the right lower lung zone but worsened in the left upper lung zone. 2. Left pleural effusion remains present. 3. Endotracheal tube tip measures only approximately 11 mm in the kaitlynn. Consider retraction. Bakari Charles MD . Procedures 12/07/16 lumbar puncture 12/08/16 intubation . Patient/Family Conference Present at Family Conference: Spoke to patient's sister and brother (Natalee and José) via telephone. Message left for patient's , Vish, on Exam18. Tentative family meeting scheduled for tomorrow 12/14/16. . Family Conference Location: Telephone Issues Discussed: * Palliative care role, purpose, approach * Additional medical, psychosocial, and spiritual history * Patients general health, functional status, and cognitive changes in the months leading up to the current hospitalization * Patient/family understanding of the current medical problems * Patient/family understanding of prognosis * Patients goals of care as best understood from advance directives and/or conversations and/or values * Current medical treatment options and benefits/burdens of those options * Likely scenarios comparing ongoing aggressive care with a transition to comfort measures only * Questions answered to the best of my ability * Palliative care contact information provided . Assessment and Plan Disease Oriented Problem List: (1) Hyponatremia (2) Hypokalemia (3) SIADH (syndrome of inappropriate ADH production) (4) Lung cancer, primary, with metastasis from lung to other site (5) Acute renal failure (6) Thrombocytopenia (7) Sepsis (8) Elevated LFTs (9) SCLC (small cell lung carcinoma) (10) Altered mental status (11) Tobacco abuse (12) Asthma (13) HTN (hypertension) (14) Bacteremia (15) Chronic obstructive pulmonary disease (16) Anemia Symptom Scale: (1) Anxiety 0-10 Scale: Unable to quantify (2) Dyspnea 0-10 Scale: Unable to quantify (3) Pain 0-10 Scale: Unable to quantify Comment: Morphine 1 mg IV q4 hours PRN for pain. Patient has received 1 dose in the past 24 hours. Pertinent Non-Medical Issues Psychosocial: Patient was born and raised in [place], [place]. She is , currently living in [place]. She has no children. The patient has a college degree but is unemployed at this time. Patient has 2 siblings, Natalee and José, who live locally. Spiritual: Bahai teofilo Legal: Per [place] statutes, in the absence of written advanced directives healthcare proxy decision making would fall to the patient's spouse, Bakari Mullins. Ethical issues impacting care: None known at this time . Important Contacts Bakari Mullins, spouse: [phone] Natalee Aponte, sister: [phone] José Henderson: [phone] . Prognosis Patient was diagnosed with extensive stage small cell lung cancer for which she was receiving chemotherapy consisting of cisplatin and etoposide. She has metastatic disease to the liver. A liver biopsy was completed on 10/14/16- results were consistent with small cell lung cancer. Patient has received 2 rounds of chemotherapy. 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 Patient has become progressively more weak per family who verbalized concern she is unable to tolerate further treatment. Overall prognosis is poor. . Code Status: Full Code Plan * FULL CODE * Decision making: Patient is currently intubated and does not have capacity to participate in health care decision making. It is unclear at this time if the patient will regain capacity. Per [place] statutes in the absence of written advanced directives healthcare proxy decision-making falls to the patient's , Bakari Mullins. * Goals: Goals pending family meeting tomorrow 12/14/16. Patient's brother and sister both verbalize understanding that the patient's overall prognosis is poor. They state that they do not wish to "prolong" the patient suffering. * Tentative family meeting scheduled for tomorrow morning 12/14/16. * Symptom managementpain: Possible causes of pain may include disease progression, comorbid conditions, invasiveness lines, immobility, bedbound status etc. On Precedex infusion. Morphine 1 mg IV is available q4 hours PRN for pain. Patient has received 1 dose in the past 24 hours. Palliative care will monitor PRN requirements and make recommendations as indicated. * Symptom managementdyspnea: Patient remains intubated, on mechanical ventilator. CXR overall better today. * Symptom managementanxiety: Potential for anxiety secondary to cancer diagnosis, intubation, dyspnea, invasiveness lines, immobility etc. Patient remains on Precedex infusion. * Palliative care contact information provided to patient's sister and brother, message with contact information left per patient's (Vish) via voicemail. * Palliative care will continue to follow this patient throughout her hospitalization to establish trust, assist with symptom management and clarification of medical treatment goals. Thank you for the opportunity to participate in the care of Ms. Mullins. . Attestation To help prompt me to consider important information that might be impacting today's encounter and assessment, information from prior notes written by myself or my colleagues may have been "brought forward" into today's note. My signature on this note, however, is an attestation that I personally performed the exam, history, and/or decision-making noted today, and, unless otherwise indicated, the interactions with patient, family, and staff as well as the review of records all occurred today. I also attest that the listed assessment and stated plan reflect my best clinical judgment today based on the combination of historical information, prior notes, and today's exam/ interactions. When time spent is documented, it refers only to time spent today by the signer, or if indicated, combined time spent today by collaborating physician/nurse practitioner. . Jordana Jc Dec 13, 2016 11:22
--- NOTE | 2016-12-13 14:39 | HHI.IDPN ---
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 Patient undergoes chemotherapy last session on Nov 11 with last dose of Neulasta on Nov 11 (per Oncology). Admitted with severe sepsis. Also has meningitis based on LP, but C/S negative Growing GNB from [facility] from 12/07 11/10 On the vent and has tommie infiltrates WBC in ok, not neutropenic Delayed entry patient seen at ~ 9 am D/W RN Notes reviewed Temps ok Sedated on the vent: opens eyes when off sedation. No seizures. Secretions small thin white. UO ok. Cr increased. No rash No diarrhea Antibiotics Cefepime Flagyl Fluconazole Lines Port R upper chest Past Medical History reviewed Allergies: Coded Allergies: Lipitor (Verified Adverse Reaction, Severe, Myalgia, 12/07/16) Codeine (Verified Adverse Reaction, Intermediate, Sedation, 12/07/16) Uncoded Allergies: SEASONAL ALLERGIES (Allergy, Mild, 03/13/08) estroven (Adverse Reaction, Intermediate, raised BP, 06/12/15) Objective . Vital Signs Date Time Temp Pulse Resp B/P Pulse Ox O2 Delivery O2 Flow Rate FiO2 12/13/16 14:06 100 40 12/13/16 11:35 98 40 12/13/16 08:25 98 40 12/13/16 06:00 85 12/13/16 04:02 99 50 12/13/16 04:00 84 12/13/16 04:00 99.2 84 20 144/100 99 12/13/16 04:00 50 12/13/16 02:00 85 12/13/16 01:03 99 50 12/13/16 00:15 99 50 12/13/16 00:00 50 12/13/16 00:00 99.2 86 20 147/100 99 12/13/16 00:00 86 12/12/16 22:00 87 12/12/16 20:10 98 50 12/12/16 20:00 99.5 86 21 159/107 99 12/12/16 20:00 50 12/12/16 20:00 86 12/12/16 18:00 85 12/12/16 16:28 98 55 12/12/16 16:00 55 12/12/16 16:00 100.5 80 20 145/92 98 12/12/16 16:00 80 12/12/16 12/12/16 12/13/16 15:00 23:00 07:00 Intake Total 1273 ml 413 ml 1419 ml Output Total 3250 ml 3515.0 ml 1335 ml Balance -1977 ml -3102.0 ml 84 ml Intake Oral 0 ml IV Total 857 ml 353 ml 833 ml Tube Feeding 326 ml 556 ml Other 90 ml 60 ml 30 ml Output Urine Total 3250 ml 3335 ml 1335 ml Tube Feeding Residual Discard 180.0 ml # Bowel Movements 0 . Laboratory Tests Test 12/12/16 12/13/16 02:25 06:30 White Blood Count 12.0 TH/MM3 6.7 TH/MM3 Red Blood Count 2.64 MIL/MM3 3.13 MIL/MM3 Hemoglobin 8.2 GM/DL 9.7 GM/DL Hematocrit 23.5 % 27.6 % Mean Corpuscular Volume 89.0 FL 88.2 FL Mean Corpuscular Hemoglobin 30.9 PG 31.0 PG Mean Corpuscular Hemoglobin 34.7 % 35.1 % Concent Red Cell Distribution Width 17.3 % 16.5 % Platelet Count 38 TH/MM3 26 TH/MM3 Mean Platelet Volume 10.8 FL 12.1 FL Neutrophils (%) (Auto) 87.1 % 65.7 % Lymphocytes (%) (Auto) 8.6 % 24.2 % Monocytes (%) (Auto) 3.7 % 9.7 % Eosinophils (%) (Auto) 0.0 % 0.1 % Basophils (%) (Auto) 0.6 % 0.3 % Neutrophils # (Auto) 10.4 TH/MM3 4.4 TH/MM3 Lymphocytes # (Auto) 1.0 TH/MM3 1.6 TH/MM3 Monocytes # (Auto) 0.4 TH/MM3 0.7 TH/MM3 Eosinophils # (Auto) 0.0 TH/MM3 0.0 TH/MM3 Basophils # (Auto) 0.1 TH/MM3 0.0 TH/MM3 CBC Comment AUTO DIFF AUTO DIFF Differential Comment AUTO DIFF AUTO DIFF CONFIRMED CONFIRMED Platelet Estimate LOW LOW Platelet Morphology Comment NORMAL ENLARGED Target Cells 1+ 2+ [place] Bodies PRESENT Acanthocytes OCC OCC Keratocytes OCC Helmet Cells OCC Laboratory Tests Test 12/11/16 12/12/16 12/12/16 3/7/17 17:35 02:25 18:35 06:30 Potassium Level 3.8 MEQ/L 3.3 MEQ/L 3.0 MEQ/L 3.4 MEQ/L Sodium Level 144 MEQ/L 144 MEQ/L Chloride Level 104 MEQ/L 100 MEQ/L Carbon Dioxide Level 30.6 MEQ/L 34.4 MEQ/L Anion Gap 9 MEQ/L 10 MEQ/L Blood Urea Nitrogen 38 MG/DL 49 MG/DL Creatinine 1.38 MG/DL 1.59 MG/DL Estimat Glomerular Filtration 40 ML/MIN 34 ML/MIN Rate Random Glucose 130 MG/DL 144 MG/DL Calcium Level 8.2 MG/DL 7.4 MG/DL Phosphorus Level 2.4 MG/DL 2.1 MG/DL Magnesium Level 1.5 MG/DL 1.2 MG/DL Total Bilirubin 1.1 MG/DL Aspartate Amino Transf 29 U/L (AST/SGOT) Alanine Aminotransferase 23 U/L (ALT/SGPT) Alkaline Phosphatase 101 U/L Total Protein 5.7 GM/DL 5.9 GM/DL Albumin 2.3 GM/DL Protein Corrected Calcium 8.1 MG/DL Microbiology Date/Time Procedure Status Source Growth 12/10/16 15:30 Gram Stain - Final Complete Sputum Endotracheal 12/10/16 15:30 Sputum Culture - Final Complete Sputum Endotracheal NO GROWTH IN 48 HOURS. Imaging Last Impressio Last Impressions Lung Scan-V Nuclear Medicine 12/09/16 0000 Signed Impressions: Service Date/Time: Friday, December 09, 2016 14:54 - CONCLUSION: Low probability for pulmonary embolism. Chaparro Baig MD Chest X-Ray 12/09/16 0000 Signed Impressions: Service Date/Time: Friday, December 09, 2016 10:12 - CONCLUSION: 1. Endotracheal tube 8 mm above the kaitlynn and could be retracted 3 cm. 2. Slight worsening airspace disease greater in the right lung. Chaparro Baig MD Lumbar Puncture Fluoroscopy 12/08/16 0000 Signed Impressions: Service Date/Time: December 16:10 - CONCLUSION: Uncomplicated fluoroscopically guided lumbar puncture with pressures as above. Dustin Hand MD Lower Extremity Ultrasound 12/08/16 0000 Signed Impressions: Service Date/Time: December 14:46 - CONCLUSION: Normal examination. Jamel Stevenson MD Abdomen Ultrasound 12/08/16 0000 Signed Impressions: Service Date/Time: December 14:15 - CONCLUSION: 1. No evidence of abdominal mass 2. Echogenic kidneys bilaterally compatible with medical renal disease. 3. Small bilateral effusions Dustin Hand MD Head CT 12/07/16 0000 Signed Impressions: Service Date/Time: Wednesday, December 07, 2016 12:10 - CONCLUSION: Negative for acute process.. Gurwinder Hernandez MD FACR Brain MRI 12/07/16 0000 Signed Impressions: Service Date/Time: Wednesday, December 07, 2016 15:03 - CONCLUSION: 1. Negative MRI of the brain. I do not see an etiology for the patient's metastatic disease. 2. I do not see obvious findings of a meningeal carcinomatosis either. Gurwinder Hernandez MD FACR Abdomen/Pelvis CT 12/07/16 0000 Signed Impressions: Service Date/Time: Wednesday, December 07, 2016 16:45 - CONCLUSION: 1. Abnormal lung bases with coarse interstitial changes suggesting fibrosis. 2. Abnormal left kidney. Pyelonephritis cannot be excluded without contrast. 3. The gallbladder appears prominent but unremarkable. 4. I do not see any etiology for the patient's abdominal pain. Gurwinder Hernandez MD FACR Physical Exam GENERAL: Sedated on the vent, has alopecia, NAD SKIN: No rashes. Has dark reddish color all distal fingers and toes (baseline) HEAD: Atraumatic. Normocephalic. No temporal or scalp tenderness. Alopecia EYES: No petechia, no hemorrhage. No scleral icterus. No injection or drainage. ENT: Orally intubated, no nasal discharge NECK: Trachea midline. Supple, nontender, no meningeal signs. CARDIOVASCULAR: HS audible. Port no evidence of infection RESPIRATORY: Breath sounds equal bilaterally. Coarse BS tommie GASTROINTESTINAL: Abdomen soft,non tender, non distended. MUSCULOSKELETAL: Extremities without clubbing, cyanosis, or edema. No joint effusion. Dark reddish color all distal toes and fingers, (per , baseline, not new) NEUROLOGICAL: Sedated Psych: could not be assessed. LINE: IV line sites, port with no evidence of infection : Noriega in place, urine looks clear Assessment & Plan Remarks IMPRESSION GNR sepsis - ID pending; not growing well, growing in aerobic bottle Septic Shock with Multiorgan dysfunction syndrome (MODS) - BP better, off pressors Meningitis: bacterial. - CSF C/S negative Aspiration pneumonia. Acute metabolic encephalopathy: Meningitis, Sepsis, SIADH Acute renal failure likely prerenal or sepsis Immune compromised, Small cell lung cancer with metastasis Anemia acute onset. Recommendations: Continue Cefepime Continue Oral Diflucan Continue Flagyl Follow C/S Spoke with micro regarding GNR - still being worked up D/W RN Spoke with brother in room. D.w Oncology and . Patients family would like Palliative care consult. Leena Fletcher MD Dec 13, 2016 14:38 Leena Fletcher MD Dec 13, 2016 14:38
--- NOTE | 2016-12-13 19:03 | HHI.PR ---
Subjective Remarks She is stable and now on FIO2 40 %. No fever. On sedation still. Objective Vital Signs Date Time Temp Pulse Resp B/P Pulse Ox O2 Delivery O2 Flow Rate FiO2 12/13/16 16:14 99 40 12/13/16 14:06 100 40 12/13/16 12:00 98.9 80 20 126/84 98 12/13/16 12:00 50 12/13/16 12:00 80 12/13/16 11:35 98 40 12/13/16 10:00 82 12/13/16 08:25 98 40 12/13/16 08:00 99.4 83 20 148/97 98 12/13/16 08:00 50 12/13/16 08:00 81 12/13/16 06:00 85 12/13/16 04:02 99 50 12/13/16 04:00 84 12/13/16 04:00 99.2 84 20 144/100 99 12/13/16 04:00 50 12/13/16 02:00 85 12/13/16 01:03 99 50 12/13/16 00:15 99 50 12/13/16 00:00 50 12/13/16 00:00 99.2 86 20 147/100 99 12/13/16 00:00 86 12/12/16 22:00 87 12/12/16 20:10 98 50 12/12/16 20:00 99.5 86 21 159/107 99 12/12/16 20:00 50 12/12/16 20:00 86 I/O 12/12/16 12/12/16 12/12/16 12/13/16 12/13/16 12/13/16 07:00 15:00 23:00 07:00 15:00 23:00 Intake Total 1006 ml 1273 ml 413 ml 1419 ml 1695 ml Output Total 2400 ml 3250 ml 3515.0 ml 1335 ml 1600 ml Balance -1394 ml -1977 ml -3102.0 ml 84 ml 95 ml Intake Oral 0 ml IV Total 816 ml 857 ml 353 ml 833 ml 1289 ml Tube Feeding 130 ml 326 ml 556 ml 376 ml Other 60 ml 90 ml 60 ml 30 ml 30 ml Output Urine Total 2400 ml 3250 ml 3335 ml 1335 ml 1600 ml Tube Feeding Residual Discard 180.0 ml # Bowel Movements 0 0 0 Result Diagram: 12/13/1662912/13/16629 Objective Remarks This is an averagely built middle-aged lady who is intubated, sedated, tachypneic. HEENT: Head normocephalic. EYES: Pupils are reactive. Sclerae were clear. Tongue is moist. Throat has a few secretions. Ears have no inflammation. NECK: Supple. No bruits or thyroid enlargement. CHEST: Equal movements with scattered coarse wheezes throughout both lung butler with bilateral crackles. HEART: The heart sounds are regular S1-S2 with no murmur. No S3. ABDOMEN: Soft and protuberant without masses. No organomegaly. Bowel sounds are faint. EXTREMITIES: No lesions. Peripheral pulses are diminished. Reflexes not elicited. The patient is sedated. Skin was dry and cool. Assessment and Plan Assessment and Plan IMPRESSION 1. Ventilator dependent respiratory failure. 2. Bilateral pneumonia and ARDS 3. Has severe anemia 4. Acute kidney injury, resolving. 5. Small-cell lung cancer status post chemotherapy. 6. SIADH 7. History of asthma and chronic bronchitis 8. Hypertension Plan : 1. Wean to CPAP in am. 2. Nebs qid , albuterol. 3. Antibiotics per ID. 4. Tube feeds at 50cc. 5. Reduce sedation. 6. Chest Xray in am. Ronel Sparrow MD Dec 13, 2016 19:03
[2016-12-13 22:54] LABS: MAGNESIUM 1.3 MG/DL (1.5-2.5)
[2016-12-13 22:57] LABS: POTASSIUM 2.6 MEQ/L (3.5-5.1)
[2016-12-14] VITALS (20 sets, daily range): BP systolic 125–150; BP diastolic 63–96; PULSE 70–89; RESP 20–21; TEMP 97.9–100.4; O2SAT 95–100
[2016-12-14] MEDS: DEXMEDETOMIDINE INJ 50 ML IV SCH ×8 (01:04→21:50)
[2016-12-14] MEDS: CEFEPIME INJ 2,000 MG in SODIUM CHLORIDE 0.9% INJ 100 ML IV SCH ×3 (01:06→15:39)
[2016-12-14] MEDS: POTASSIUM CHLOR 40 MEQ PREMIX 100 ML IV PRN ×3 (01:09→20:11)
[2016-12-14] MEDS: ACETAMINOPHEN 650 MG/20.3 ML UDC TUBE PRN (01:12)
[2016-12-14] MEDS: levETIRAcetam INJ 1,000 MG in SODIUM CHLORIDE 0.9% INJ 100 ML IV SCH ×2 (02:30→15:39)
[2016-12-14] MEDS: CHLORHEXIDINE GLUCONATE 2 % 1 PACK (2 CLOTHS) TOP SCH (02:31)
[2016-12-14] MEDS: MAGNESIUM SULFATE INJ 2 GM in SODIUM CHLORIDE 0.9% INJ 96 ML IV PRN (02:53)
[2016-12-14 02:55] LABS: AUTOMATED NEUTROPHIL # 6.3 TH/MM3 (1.8-7.7); BASOPHIL % 0.2 % (0.0-2.0); EOSINOPHIL % 0.2 % (0.0-4.0); HEMATOCRIT 26.5 % (35.0-46.0); LYMPH % 32.7 % (9.0-44.0); LYMPHOCYTE # 3.6 TH/MM3 (1.0-4.8); MEAN CELL VOLUME 89.5 FL (80.0-100.0); MEAN CORPUSCULAR HEMOGLOBIN 31.4 PG (27.0-34.0); MEAN CORPUSCULAR HGB CONC 35.1 % (32.0-36.0); MONO % 9.8 % (0.0-8.0); NEUT % 57.1 % (16.0-70.0); PLATELET COUNT 38 TH/MM3 (150-450); RED BLOOD COUNT 2.96 MIL/MM3 (4.00-5.30); RED CELL DISTRIBUTION WIDTH 16.9 % (11.6-17.2); WHITE BLOOD COUNT 10.9 TH/MM3 (4.0-11.0)
[2016-12-14 02:58] LABS: HEMO FLAGS AUTO DIFF
[2016-12-14 03:09] LABS: APTT (PATIENT) 25.5 SEC (24.3-30.1); INTERNATIONAL NORMALIZED RATIO 1.3 RATIO
[2016-12-14 03:11] LABS: BICARBONATE 35.3 MEQ/L (21.0-32.0); MAGNESIUM 1.3 MG/DL (1.5-2.5)
[2016-12-14 03:15] LABS: POTASSIUM 2.6 MEQ/L (3.5-5.1)
[2016-12-14 03:33] LABS: CALCIUM-PROTEIN CORRECTED 8.2 MG/DL (8.5-10.1)
[2016-12-14] MEDS: metroNIDAZOLE 500 MG TAB PO SCH ×3 (04:31→20:10)
[2016-12-14] MEDS: INSULIN NovoLIN REGULAR SUPPLEMENTAL SCALE SQ SCH ×4 (04:33→18:00)
[2016-12-14 04:48] LABS: BLOOD GAS CARBOXYHEMOGLOBIN 1.7 % (0-4); BLOOD GAS HCO3 31 mmol/L (22-26); BLOOD GAS O2 HGB SATURATION 92 % (90-100); BLOOD GAS OXYGEN CONTENT 11.3 Vol % (12.0-20.0); BLOOD GAS PCO2 35 mmHg (38-42); BLOOD GAS PO2 68 mmHg (61-120); BLOOD GAS TOTAL HGB 8.8 G/DL (12.0-16.0); CRITICAL VALUE YES; TEMP CORR TO 98.6
[2016-12-14 04:49] LABS: DRAW SITE RT RADIAL; FIO2 40 %; OXYGEN DEVICE VENTILATOR; VENT SETTINGS PRVC/AC
[2016-12-14 04:50] LABS: NUMBER OF ARTERIAL PUNCTURES 1; STAT NO; ULNAR PULSE PRESENT
[2016-12-14 07:03] LABS: ACANTHOCYTES OCC (NORMAL); HOWELL-JOLLY BODIES PRESENT (NONE SEEN); KERATOCYTES OCC (NORMAL); PLATELET ESTIMATE SMEAR LOW (NORMAL); TARGET CELLS 1+ (NORMAL)
[2016-12-14 07:04] LABS: PLATELET MORPHOLOGY ENLARGED (NORMAL); SCAN/DIFF AUTO DIFF CONFIRMED
[2016-12-14] MEDS: METOPROLOL TARTRATE 25 MG TAB PO SCH ×2 (08:20→20:10)
[2016-12-14] MEDS: PANTOPRAZOLE SODIUM 40 MG VIAL IV SCH (08:20)
[2016-12-14] MEDS: FLUCONAZOLE 100 MG TAB PO SCH (08:20)
--- NOTE | 2016-12-14 08:57 | HHI.PR ---
Objective Vital Signs Date Time Temp Pulse Resp B/P Pulse Ox O2 Delivery O2 Flow Rate FiO2 12/14/16 07:46 97 40 12/14/16 06:00 75 12/14/16 04:09 95 40 12/14/16 04:00 73 12/14/16 04:00 40 12/14/16 04:00 100.4 73 20 133/84 95 12/14/16 02:29 20 12/14/16 02:00 72 12/14/16 01:08 99 40 12/14/16 00:00 100.2 76 20 150/96 100 12/14/16 00:00 76 12/14/16 00:00 40 12/13/16 22:03 100 40 12/13/16 22:00 75 12/13/16 20:00 40 12/13/16 20:00 100.4 78 20 146/92 98 12/13/16 20:00 78 12/13/16 19:03 97 40 12/13/16 18:00 78 12/13/16 16:14 99 40 12/13/16 16:00 50 12/13/16 16:00 100.8 78 20 156/100 99 12/13/16 16:00 78 12/13/16 14:06 100 40 12/13/16 14:00 81 12/13/16 12:00 98.9 80 20 126/84 98 12/13/16 12:00 50 12/13/16 12:00 80 12/13/16 11:35 98 40 12/13/16 10:00 82 I/O 12/13/16 12/13/16 12/13/16 12/14/16 12/14/16 12/14/16 07:00 15:00 23:00 07:00 15:00 23:00 Intake Total 1419 ml 1695 ml 1059 ml 1026 ml Output Total 1335 ml 1600 ml 840 ml 850 ml Balance 84 ml 95 ml 219 ml 176 ml IV Total 833 ml 1289 ml 708 ml 694 ml Tube Feeding 556 ml 376 ml 291 ml 272 ml Other 30 ml 30 ml 60 ml 60 ml Output Urine Total 1335 ml 1600 ml 840 ml 850 ml # Bowel Movements 0 1 1 Result Diagram: 12/14/1621912/14/16219 Objective Remarks opens eyes and vff follows all commands moves all 4 ext shows bilat thumbs up vff counts fingers nad Assessment and Plan Assessment and Plan imp on abt and steroids cytology neg cont current rx cont keppra 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
[2016-12-14] MEDS: SENNOSIDES SYRUP 8.8 MG/5 ML CUP PO SCH (09:00)
[2016-12-14] MEDS: DOCUSATE SODIUM 100 MG/10 ML UDC PO SCH ×2 (09:00→20:10)
[2016-12-14] MEDS: NS + KCL 40 MEQ INJ 1,000 ML IV SCH ×2 (09:24→15:39)
[2016-12-14] MEDS: MAGNESIUM SULFATE 1 GM PREMIX 100 ML IV SCH ×2 (09:25→09:31)
[2016-12-14] MEDS: DEXAMETHASONE SOD PHOS 20 MG/5 ML VIAL IV PUSH SCH ×2 (09:26→20:10)
[2016-12-14] MEDS: CHLORHEXIDINE 0.12% (ORAL KIT) 15 ML CUP MT SCH ×2 (09:27→20:11)
--- NOTE | 2016-12-14 09:46 | HHI.CCPN ---
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 She presented to [facility] ED with altered mental status, lethargy and fever for the past couple days. Her last chemotherapy was two days ago however when the patient went to receive another session yesterday it was not given due to her condition and instead she was given IV hydration. On arrival to the ED, the patient was tachycardic with a heart rate of 110-120s and initially she was hypotensive with a systolic blood pressure 80s-90s. She also was found to have a temperature of 100.7 rectally. In the ED she was given 2 liter boluses of normal saline with improvement of her blood pressure to 141/ 86. Her laboratory data showed mild acute kidney injury with a creatinine level of 1.31 and hyponatremia with a sodium level of 131. In addition, the patient had significant leukocytosis with a WBC of 71.4 associated with bandemia 28. Also, her hemoglobin was 6.8 with hematocrit of 20.2. Two units of packed RBCs have been ordered by the ED physician. The patient received a Neulasta injection post her chemotherapy. Due to her altered mental status, a CT scan of the brain was obtained which was negative for acute process. The patient also had MRI of the brain which was negative for any metastatic disease. A chest x-ray in the ED showed Infusaport in good position and mild interstitial prominence. The patient received Vancomycin and cefepime in the ED , and a CT scan of the abdomen and pelvis has been ordered. Overall, history is limited as the patient is a poor historian. However, she is not complaining of any pain. 3/ Last night patient became tachycardic, hypoxic and worsening mental status she was subsequently intubated and placed on mechanical ventilation. She received additional 2L NS for hypotension and started on Neosyn 50 mics. s/p transfusion 2u PRBC yesterday for Hgb 6.8 her Hgb 11.2 this morning. 12/09 Patient remains sedated with Diprivan and intubated. On Neosyn 40 mics and bicarb drip. T:99.9 last night WBC trending down 24 today from 55. s/p LP showed clear CSF, WBC 978, TP:179 , nl glc 12/10 Patient is sedated with Diprivan and intubated. Off Neosyn. Afebrile. V/Q scaln yesterday low prob. BC from 12/07 GNR. 12/11 No acute events overnight. Sedated with Diprivan and intubated. Afebrile. WBC trending down. PLT 18 this morning. Tolerated CPAP x 4 hrs yesterday 12/12 Patient remains sedated and intubated. On ACV RR20, TV 500, PEEP:5, FIO2 55% . Afebrile. s/p transfusion 1u PLT and FFP yesterday per heme. 12/13 No acute events overnight. On Precedex infusion . CXR overall better today. Off Bumex drip. Afebrile. 12/14: Remains intubated, awake. UO adequate off Bumex drip. CXR stable to improving. Plt count 38. Objective Vital Signs Date Time Temp Pulse Resp B/P Pulse Ox O2 Delivery O2 Flow Rate FiO2 12/14/16 07:46 97 40 12/14/16 06:00 75 12/14/16 04:00 100.4 20 133/84 Intake and Output 12/13/16 12/13/16 12/14/16 08:00 16:00 00:00 Intake Total 1419 ml 1695 ml 1059 ml Output Total 1335 ml 1600 ml 840 ml Balance 84 ml 95 ml 219 ml Result Diagram: 12/14/1621912/14/16219 Other Results Laboratory Tests Test 12/14/16 04:35 Blood Gas Puncture Site RT RADIAL Blood Gas Patient Temperature 98.6 Blood Gas HCO3 31 mmol/L (22-26) Blood Gas Base Excess 8.0 mmol/L (-2-2) Blood Gas Oxygen Saturation 92 % (90-100) Arterial Blood pH 7.55 (7.380-7.420) Arterial Blood Partial 35 mmHg (38-42) Pressure CO2 Arterial Blood Partial 68 mmHg Pressure O2 (61-120) Arterial Blood Oxygen Content 11.3 Vol % (12.0-20.0) Arterial Blood 1.7 % (0-4) Carboxyhemoglobin Arterial Blood Methemoglobin 1.0 % (0-2) Blood Gas Hemoglobin 8.8 G/DL (12.0-16.0) Oxygen Delivery Device VENTILATOR Blood Gas Ventilator Setting PRVC/AC Blood Gas Inspired Oxygen 40 % Imaging Last Impressions Chest X-Ray 12/12/16 Signed Impressions: Service Date/Time: Monday, December 12, 2016 08:08 - CONCLUSION: 1. Persistent severe diffuse bilateral airspace consolidation that appears slightly improved in the right lower lung zone but worsened in the left upper lung zone. 2. Left pleural effusion remains present. 3. Endotracheal tube tip measures only approximately 11 mm in the kaitlynn. Consider retraction. Bakari Charles MD Lung Scan-VQ Nuclear Medicine 12/09/16 0000 Signed Impressions: Service Date/Time: Friday, December 09, 2016 14:54 - CONCLUSION: Low probability for pulmonary embolism. Chaparro Baig MD Lumbar Puncture Fluoroscopy 12/08/16 0000 Signed Impressions: Service Date/Time: December 16:10 - CONCLUSION: Uncomplicated fluoroscopically guided lumbar puncture with pressures as above. Dustin Hand MD Lower Extremity Ultrasound 12/08/16 Signed Impressions: Service Date/Time: December 14:46 - CONCLUSION: Normal examination. Jamel Stevenson MD Abdomen Ultrasound 12/08/16 0000 Signed Impressions: Service Date/Time: December 14:15 - CONCLUSION: 1. No evidence of abdominal mass 2. Echogenic kidneys bilaterally compatible with medical renal disease. 3. Small bilateral effusions Dustin Hand MD Head CT 12/07/16 0000 Signed Impressions: Service Date/Time: Wednesday, December 07, 2016 12:10 - CONCLUSION: Negative for acute process.. Gurwinder Hernandez MD FACR Brain MRI 12/07/16 0000 Signed Impressions: Service Date/Time: Wednesday, December 07, 2016 15:03 - CONCLUSION: 1. Negative MRI of the brain. I do not see an etiology for the patient's metastatic disease. 2. I do not see obvious findings of a meningeal carcinomatosis either. Gurwinder Hernandez MD FACR Abdomen/Pelvis CT 12/07/16 0000 Signed Impressions: Service Date/Time: Wednesday, December 07, 2016 16:45 - CONCLUSION: 1. Abnormal lung bases with coarse interstitial changes suggesting fibrosis. 2. Abnormal left kidney. Pyelonephritis cannot be excluded without contrast. 3. The gallbladder appears prominent but unremarkable. 4. I do not see any etiology for the patient's abdominal pain. Gurwinder Hernandez MD FACR Objective Remarks GENERAL: Patient is 51 yo critically ill appearing intubated and sedated, wakes up easily follows command SKIN: Warm and dry. HEAD: Normocephalic. EYES: No scleral icterus. No injection or drainage. NECK: Supple, trachea midline. No JVD or lymphadenopathy. Orally intubated CARDIOVASCULAR: Tachycardic without murmurs, gallops, or rubs. RESPIRATORY: Breath sounds equal bilaterally. No accessory muscle use. GASTROINTESTINAL: Abdomen soft, mild tenderness on palpation. MUSCULOSKELETAL: No cyanosis, or edema. Neuro: Sedated, intubated. awake alert. Follows commands all 4 extremities A/P Assessment and Plan 1. Acute respiratory failure 2. Leukocytosis ..trending down 3. Possible aspiration pneumonia. 4. Anemia, thrombocytopenia r/o DIC 5. Acute kidney injury. 6. Encephalopathy 7. Bacterial Meningitis 8. Small cell lung cancer status post chemotherapy 9. Chronic hyponatremia. 10. 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 11 Hyperglycemia 12 Elevated AST 13. Hypertension. 14. GERD. 15. History of bronchial asthma. Plan Neuro: On Precedex infusion. Monitor neuro status closely CT brain and MRI brain negative for acute process EEG showed diffuse encephalopathy- on Keppra IV Q12, Decadron 10mg Q6 s/p LP 3/2 - clear CSF, WBC 978, TP:179, nl Glc, 96 Neutrophils. Continue with abx, taper steroids- decrease Decadron 10mg BID Neuro: Dr. Howe Pulm: Continue with vent support and maintain sats above 90%. On AC RR 20, TV 500, PEEP:8, FIO2 40%. SBT for possible extubation Bronchodilators , ICU vent bundle. SBT as lazaro when appropriate. CXR improving. Pulm is following- Dr. Sparrow. V/Q scan- Low prob PE CV: On Lopressor 25mg Q12. monitor HR and BP and maintain MAP > 65 mmHg. Lactic acid: 1.8 Echo showed diffuse hypokinesis EF 25-30% : Monitor renal function, Is and Os and electrolyte replacement per protocol. Will need K, Mg, Phos replacement today. Cr: 1.29 from 1.59, UO: >3L ml in 24 hrs Off Bumex 12/13/16 CT abd/pelvis : Pyelonephritis could not be excluded . US abdomen: No masses, medical renal disease GI: On Protonix 40 mg IV daily for GI prophylaxis. TF-Glucerna 1.5 @ 45ml/hr on Reglan 5mg Q8 PRN high residuals. Colace/Senna for bowel regimen. ID: Continue with abx per ID (Cefepime, Flagyl, Diflucan) Strep pneumonia and Legionella urinary antigen negative. s/p LP 12/07, follow up on LP results- NGTD BC from 12/07: GNR. follow up on BC from 12/10 .WBC trending down Heme: Monitor CBC, coags, s/p transfusion 2 units of PRBC on arrival. Heme-Onc is following- Dr. Gama. Follow up on Cytology of CSF ( pending ) s/p transfusion 1u PLT and 2u FFP 12/11. Further transfusion per heme. PLT 38 this morning. H/H stable. Endo: SSI with Accu-Cheks for glycemic control. GI prophylaxis with Protonix 40 mg daily and DVT prophylaxis with SCDs. Not on chemical anticoagulation prophylaxis due to anemia requiring blood transfusions and thrombocytopenia 12/08 Doppler US LE negative for DVT 12/09 V/Q scan low prob PE Lines: Right Infuse A port Dr. Ortiz Consulted palliative care to asses with goals of care CCT 32 mins . Tracy Villegas MD Dec 14, 2016 09:46
[2016-12-14] MEDS ORDERED: POTASSIUM PHOSPHATE INJ 30 MMOL in SODIUM CHLOR 0.9% 250 ML INJ 250 ML IV ONE (10:00)
--- NOTE | 2016-12-14 11:42 | RADRPT ---
EXAM DATE/TIME: 12/14/2016 10:35 [place] COMPARISON: CHEST SINGLE AP, December 13, 2016, 7:26. INDICATIONS : Respiratory disease. MEDICAL HISTORY : Carcinoma, lung. Hypertension Cardiovascular disease. SURGICAL HISTORY : None. ENCOUNTER: Subsequent ACUITY: 2 weeks PAIN SCORE: Non-responsive. LOCATION: Bilateral chest FINDINGS: Portable AP view of the chest demonstrates a normal-sized cardiac silhouette. Endotracheal tube tip m easures approximately 14 mm from the kaitlynn and NG tube courses beyond the GE junction. There are sta ble bilateral lower lung zone interstitial opacities with small left pleural based opacity. No pneumo thorax is present. CONCLUSION: 1. Stable chest x-ray with small left pleural effusion and bilateral lower lung zone airspace opacity . 2. Endotracheal tube in stable position with tip measuring 14 mm from the kaitlynn. Bakari Charles MD on December 14, 2016 at 11:20 Board Certified Radiologist. This report was verified electronically.
[2016-12-14 11:54] LABS: BLOOD GAS BASE EXCESS 6.9 mmol/L (-2-2); BLOOD GAS CARBOXYHEMOGLOBIN 1.7 % (0-4); BLOOD GAS HCO3 30 mmol/L (22-26); BLOOD GAS METHEMOGLOBIN 1.2 % (0-2); BLOOD GAS O2 HGB SATURATION 94 % (90-100); BLOOD GAS OXYGEN CONTENT 11.7 Vol % (12.0-20.0); BLOOD GAS PCO2 39 mmHg (38-42); BLOOD GAS PO2 84 mmHg (61-120); BLOOD GAS TOTAL HGB 8.8 G/DL (12.0-16.0); CRITICAL VALUE YES; OXYGEN DEVICE VENTILATOR; TEMP CORR TO 98.6; VENT SETTINGS CPAP+5/PS+5
[2016-12-14 11:55] LABS: DRAW SITE RT RADIAL; FIO2 40 %; NUMBER OF ARTERIAL PUNCTURES 1; STAT NO; ULNAR PULSE PRESENT
--- NOTE | 2016-12-14 13:35 | PD.ONC.PN ---
Subjective Subjective Remarks Tmax overnight 100.4. Pt is currently on a CPAP trial. She is awake. Following commands. She shakes her head "no" when asked about pain or SOB. Per RN she had one dark stool overnight. Objective Data Date Time Temp Pulse Resp B/P Pulse Ox O2 Delivery O2 Flow Rate FiO2 12/14/16 12:15 97 40 12/14/16 10:00 74 12/14/16 08:00 98.7 89 21 138/85 100 12/14/16 08:00 75 12/14/16 08:00 40 12/14/16 07:46 97 40 12/14/16 06:00 75 12/14/16 04:09 95 40 12/14/16 04:00 73 12/14/16 04:00 40 12/14/16 04:00 100.4 73 20 133/84 95 12/14/16 02:29 20 12/14/16 02:00 72 12/14/16 01:08 99 40 12/14/16 00:00 100.2 76 20 150/96 100 12/14/16 00:00 76 12/14/16 00:00 40 12/13/16 22:03 100 40 12/13/16 22:00 75 12/13/16 20:00 40 12/13/16 20:00 100.4 78 20 146/92 98 12/13/16 20:00 78 12/13/16 19:03 97 40 12/13/16 18:00 78 12/13/16 16:14 99 40 12/13/16 16:00 50 12/13/16 16:00 100.8 78 20 156/100 99 12/13/16 16:00 78 12/13/16 14:06 100 40 12/13/16 14:00 81 12/14/16 12/14/16 12/14/16 07:00 15:00 23:00 Intake Total 1026 ml Output Total 850 ml Balance 176 ml Result Diagram: 12/14/1621912/14/16219 Laboratory Results Laboratory Tests Test 12/13/16 12/14/16 12/14/16 12/14/16 21:52 02:20 04:35 11:40 Potassium Level 2.6 MEQ/L 2.6 MEQ/L Calcium Level 7.2 MG/DL 7.4 MG/DL Magnesium Level 1.3 MG/DL 1.3 MG/DL White Blood Count 10.9 TH/MM3 Red Blood Count 2.96 MIL/MM3 Hemoglobin 9.3 GM/DL Hematocrit 26.5 % Mean Corpuscular Volume 89.5 FL Mean Corpuscular Hemoglobin 31.4 PG Mean Corpuscular Hemoglobin 35.1 % Concent Red Cell Distribution Width 16.9 % Platelet Count 38 TH/MM3 Mean Platelet Volume 13.0 FL Neutrophils (%) (Auto) 57.1 % Lymphocytes (%) (Auto) 32.7 % Monocytes (%) (Auto) 9.8 % Eosinophils (%) (Auto) 0.2 % Basophils (%) (Auto) 0.2 % Neutrophils # (Auto) 6.3 TH/MM3 Lymphocytes # (Auto) 3.6 TH/MM3 Monocytes # (Auto) 1.1 TH/MM3 Eosinophils # (Auto) 0.0 TH/MM3 Basophils # (Auto) 0.0 TH/MM3 CBC Comment AUTO DIFF Differential Comment AUTO DIFF CONFIRMED Platelet Estimate LOW Platelet Morphology Comment ENLARGED Target Cells 1+ Perera-Parkline Bodies PRESENT Acanthocytes OCC Keratocytes OCC Prothrombin Time 14.0 SEC Prothromb Time International 1.3 RATIO Ratio Activated Partial 25.5 SEC Thromboplast Time Fibrinogen 296 mg/dL Sodium Level 148 MEQ/L Chloride Level 104 MEQ/L Carbon Dioxide Level 35.3 MEQ/L Anion Gap 9 MEQ/L Blood Urea Nitrogen 54 MG/DL Creatinine 1.29 MG/DL Estimat Glomerular Filtration 43 ML/MIN Rate Random Glucose 132 MG/DL Protein Corrected Calcium 8.2 MG/DL Phosphorus Level 2.1 MG/DL Total Protein 5.7 GM/DL Blood Gas Puncture Site RT RADIAL RT RADIAL Blood Gas Patient Temperature 98.6 98.6 Blood Gas HCO3 31 mmol/L 30 mmol/L Blood Gas Base Excess 8.0 mmol/L 6.9 mmol/L Blood Gas Oxygen Saturation 92 % 94 % Arterial Blood pH 7.55 7.51 Arterial Blood Partial 35 mmHg 39 mmHg Pressure CO2 Arterial Blood Partial 68 mmHg 84 mmHg Pressure O2 Arterial Blood Oxygen Content 11.3 Vol % 11.7 Vol % Arterial Blood 1.7 % 1.7 % Carboxyhemoglobin Arterial Blood Methemoglobin 1.0 % 1.2 % Blood Gas Hemoglobin 8.8 G/DL 8.8 G/DL Oxygen Delivery Device VENTILATOR VENTILATOR Blood Gas Ventilator Setting PRVC/AC CPAP+5/PS+5 Blood Gas Inspired Oxygen 40 % 40 % Culture Results Microbiology Date/Time Procedure Status Source Growth 12/13/16 18:40 Aerobic Blood Culture - Preliminary Resulted Blood Peripheral NO GROWTH IN 1 DAY 12/13/16 18:40 Anaerobic Blood Culture - Preliminary Resulted Blood Peripheral NO GROWTH IN 1 DAY 12/13/16 21:52 Aerobic Blood Culture Received Blood Line Pending 12/13/16 21:52 Anaerobic Blood Culture Received Blood Line Pending Imaging Studies Last 24 hours Impressions Chest X-Ray 12/14/16 0000 Signed Impressions: Service Date/Time: Wednesday, December 14, 2016 10:35 - CONCLUSION: 1. Stable chest x-ray with small left pleural effusion and bilateral lower lung zone airspace opacity. 2. Endotracheal tube in stable position with tip measuring 14 mm from the kaitlynn. Bakari Charles MD Administered Medications Medications (Trade) Dose Ordered Sig/Ermias Route PRN Reason Start Time Stop Time Status Last Admin Dose Admin Pantoprazole Sodium (Protonix Inj) 40 mg DAILY IV 12/07/16 16:15 12/14/16 08:20 Chlorhexidine Gluconate (Chlorhexidine 2% Cloth) Taper DAILY@04 TOP 12/08/16 04:00 12/04/17 03:59 12/14/16 02:31 Insulin Human Regular (NovoLIN R SUPPLEMENTAL SCALE) 1 Q6H SQ 12/07/16 18:00 12/13/16 17:34 Fentanyl Citrate 50 mcg 50 mcg Q1H PRN IV PUSH PAIN 5-10 12/07/16 21:45 12/11/16 05:26 Phenylephrine HCl 40 mg/Dextrose 500 ml @ 0 mls/hr TITRATE IV 12/08/16 02:00 12/09/16 05:11 Potassium Chloride 100 ml @ 50 mls/hr Q2H PRN IV For Potassium 2.8 - 3.2 mEq/L 12/08/16 01:00 12/14/16 01:09 Potassium Chloride 100 ml @ 25 mls/hr UNSCH PRN IV For Potassium 3.3 - 3.5 mEq/L 12/08/16 01:00 12/10/16 10:50 Magnesium Sulfate 2 gm/Sodium Chloride 100 ml @ 50 mls/hr UNSCH PRN IV For Magnesium 1.2 - 1.6 mg/dL 12/08/16 01:00 12/14/16 02:53 Potassium Phosphate/Sodium Chloride (Potassium Phosphate Inj/NS 250 ml Inj) 260 ml @ 42 mls/hr UNSCH PRN IV SEE LABEL COMMENTS 12/08/16 01:00 12/12/16 05:51 Acetaminophen (Tylenol 650 Mg/ 20 ml Liq) 650 mg Q4H PRN TUBE TEMP >101 12/08/16 03:30 12/14/16 01:12 Chlorhexidine Gluconate 15 ml 15 ml BID@08,20 MT 12/08/16 08:00 12/14/16 09:27 Levetriacetam 1000 mg/Sodium Chloride 110 ml @ 420 mls/hr Q12H IV 12/09/16 03:00 12/14/16 02:30 Propofol (Diprivan 1000 Mg/100ml Inj) 100 ml @ 0 mls/hr TITRATE IV 12/09/16 00:45 12/12/16 10:16 Metronidazole (Flagyl) 500 mg Q8HR PO 12/09/16 14:00 12/14/16 04:31 Fluconazole (Diflucan) 100 mg DAILY PO 12/09/16 11:00 12/14/16 08:20 Metoclopramide HCl (Reglan Inj) 5 mg Q8H PRN IV PUSH high residuals 12/10/16 07:15 12/11/16 20:44 Metoprolol Tartrate (Lopressor) 25 mg Q12HR PO 12/11/16 09:00 12/14/16 08:20 Morphine Sulfate (Morphine Inj) 1 mg Q4H PRN IV PUSH pain 12/11/16 11:15 12/12/16 18:18 Diphenhydramine HCl 25 mg 25 mg Q4H PRN PO BLOOD PRODUCT ADMINISTRATION 12/11/16 20:15 12/11/16 20:21 Dexmedetomidine HCl 50 ml @ 0 mls/hr TITRATE IV 12/12/16 08:30 12/14/16 09:25 Cefepime HCl/ Sodium Chloride (Maxipime Inj/NS Inj) 100 ml @ 200 mls/hr Q8H IV 12/12/16 16:00 12/14/16 08:20 Dexamethasone Sodium Phosphate (Decadron Inj) 10 mg BID IV PUSH 12/13/16 09:00 12/14/16 09:26 Sennosides (Senna Liq) 8.8 mg DAILY PO 12/13/16 09:00 12/13/16 09:07 Docusate Sodium 100 mg 100 mg Q12HR PO 12/13/16 09:00 12/13/16 09:08 Potassium Phosphate 30 mmol/ Sodium Chloride 260 ml @ 43.333 mls/ hr ONCE ONCE IV 12/14/16 10:00 12/14/16 15:59 12/14/16 09:25 Potassium Chloride/Sodium Chloride (NS + KCl 40 Meq Inj) 1,000 ml @ 125 mls/hr Q8H IV 12/14/16 08:00 12/14/16 09:24 Objective Remarks GENERAL: Supine female awake in bed intubated on CPAP trial. SKIN: Warm and dry. HEAD: Normocephalic. EYES: No injection or drainage. NECK: Supple, trachea midline. CARDIOVASCULAR: +S1/S2 RESPIRATORY: Mechanically ventilated. Occasional rhonchi, anterior butler. GASTROINTESTINAL: Abdomen soft, nondistended. EXTREMITIES: No cyanosis. Bilateral tips of toes reddened. NEUROLOGICAL: Awake on CPAP. Nods her head appropriately to questions. Follows commands. Assessment/Plan Problem List: (1) Sepsis Status: Acute Plan: --likely bacterial meningitis -- CSF gram stain shows no growth --on multiple abx as above, per ID. --U/A neg --CXR: small left pleural effusion. last Neulasta shot was given on 11/16. (2) SCLC (small cell lung carcinoma) Status: Acute Plan: --s/p Carboplatin/[employer] 16, last chemo given in early November (3) Normocytic anemia Status: Acute Plan: --transfuse as needed --monitor for bleeding (4) Thrombocytopenia Status: Acute Plan: -- Likely consumptive due to acute illness. -- Fibrinogen OK. -- Transfuse for bleeding or platelets less than 20K. (5) Acute renal failure Status: Acute Plan: --on IVF (6) Elevated LFTs Status: Acute Plan: --Abnormal LFTs likely secondary to acute illness. ++does have metastatic disease to the liver. Assessment 51y/o admitted with hypotension, lethargy, leukocytosis, now [place] [facility] [place] int[place]ated and on pressor support h/o metastatic SCLC Plan 1. Monitor blood counts, fibrinogen. 2. No transfusion today. 3. Pt looked good on CPAP with no increased work of breathing. 4. Critical care to decide on extubation. 5. Continue antibiotics per ID. 6. Electrolytes being replaced per protocol. Attending Statement The exam, history, and the medical decision-making described in the above note were completed with the assistance of the mid-level provider. I reviewed and agree with the findings presented. I attest that I had a [id number] encounter with the patient on the same day, and personally performed and documented my assessment and findings in the medical record. some clinical improvement. awake. still on vent . weaning trials Thrombocytopenia due to sepsis/acute illnes/consumption and chemotherapy effect. Check daily fibrinogen and give cryo to keep fibrinogen >150 Anemia--Hb trended down slightly--dark stool. check stool heme-occult Leukocytosis- resolved. Replace Mag/Phos and potassium continue supportive care discussed with family d/w RN Problem Qualifiers (1) Sepsis: Qualified Code: A41.9 - Sepsis, due to unspecified organism Saba Banegas Dec 14, 2016 13:35 Aakash Gama MD Dec 14, 2016 23:41
[2016-12-14 13:54] LABS: VWF CLEAVING PROT ACT 69 (68-163); VWF PROTEASE INH ND BEU (<0.4)
--- NOTE | 2016-12-14 14:52 | HHI.IDPN ---
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 Patient undergoes chemotherapy last session on Nov 11 with last dose of Neulasta on Nov 11 (per Oncology). Admitted with severe sepsis. Also has meningitis based on LP, but C/S negative Growing GNB from [facility] from 12/07 11/10 - no ID yet, sent to [facility] for ID On the vent and has tommie infiltrates WBC is ok, not neutropenic Notes reviewed Had low gradet temps overnight, better this morning Did CPAP this morning Awake and following No seizures. No rash Still no ID on GNR in [facility] from 12/07 Followup [facility] negative so far Antibiotics Cefepime Flagyl Fluconazole Lines Port R upper chest Past Medical History reviewed Allergies: Coded Allergies: Lipitor (Verified Adverse Reaction, Severe, Myalgia, 12/07/16) Codeine (Verified Adverse Reaction, Intermediate, Sedation, 12/07/16) Uncoded Allergies: SEASONAL ALLERGIES (Allergy, Mild, 03/13/08) estroven (Adverse Reaction, Intermediate, raised BP, 06/12/15) Objective . Vital Signs Date Time Temp Pulse Resp B/P Pulse Ox O2 Delivery O2 Flow Rate FiO2 12/14/16 12:15 97 40 12/14/16 10:00 74 12/14/16 08:00 98.7 89 21 138/85 100 12/14/16 08:00 75 12/14/16 08:00 40 12/14/16 07:46 97 40 12/14/16 06:00 75 12/14/16 04:09 95 40 12/14/16 04:00 73 12/14/16 04:00 40 12/14/16 04:00 100.4 73 20 133/84 95 12/14/16 02:29 20 12/14/16 02:00 72 12/14/16 01:08 99 40 12/14/16 00:00 100.2 76 20 150/96 100 12/14/16 00:00 76 12/14/16 00:00 40 12/13/16 22:03 100 40 12/13/16 22:00 75 12/13/16 20:00 40 12/13/16 20:00 100.4 78 20 146/92 98 12/13/16 20:00 78 12/13/16 19:03 97 40 12/13/16 18:00 78 12/13/16 16:14 99 40 12/13/16 16:00 50 12/13/16 16:00 100.8 78 20 156/100 99 12/13/16 16:00 78 12/13/16 12/13/16 12/14/16 15:00 23:00 07:00 Intake Total 1695 ml 1059 ml 1026 ml Output Total 1600 ml 840 ml 850 ml Balance 95 ml 219 ml 176 ml IV Total 1289 ml 708 ml 694 ml Tube Feeding 376 ml 291 ml 272 ml Other 30 ml 60 ml 60 ml Output Urine Total 1600 ml 840 ml 850 ml # Bowel Movements 0 1 1 . Laboratory Tests Test 12/13/16 12/14/16 06:30 02:20 White Blood Count 6.7 TH/MM3 10.9 TH/MM3 Red Blood Count 3.13 MIL/MM3 2.96 MIL/MM3 Hemoglobin 9.7 GM/DL 9.3 GM/DL Hematocrit 27.6 % 26.5 % Mean Corpuscular Volume 88.2 FL 89.5 FL Mean Corpuscular Hemoglobin 31.0 PG 31.4 PG Mean Corpuscular Hemoglobin 35.1 % 35.1 % Concent Red Cell Distribution Width 16.5 % 16.9 % Platelet Count 26 TH/MM3 38 TH/MM3 Mean Platelet Volume 12.1 FL 13.0 FL Neutrophils (%) (Auto) 65.7 % 57.1 % Lymphocytes (%) (Auto) 24.2 % 32.7 % Monocytes (%) (Auto) 9.7 % 9.8 % Eosinophils (%) (Auto) 0.1 % 0.2 % Basophils (%) (Auto) 0.3 % 0.2 % Neutrophils # (Auto) 4.4 TH/MM3 6.3 TH/MM3 Lymphocytes # (Auto) 1.6 TH/MM3 3.6 TH/MM3 Monocytes # (Auto) 0.7 TH/MM3 1.1 TH/MM3 Eosinophils # (Auto) 0.0 TH/MM3 0.0 TH/MM3 Basophils # (Auto) 0.0 TH/MM3 0.0 TH/MM3 CBC Comment AUTO DIFF AUTO DIFF Differential Comment AUTO DIFF AUTO DIFF CONFIRMED CONFIRMED Platelet Estimate LOW LOW Platelet Morphology Comment ENLARGED ENLARGED Target Cells 2+ 1+ Helmet Cells OCC [place] Bodies PRESENT PRESENT Acanthocytes OCC OCC Keratocytes OCC Laboratory Tests Test 12/12/16 12/13/16 12/13/16 12/14/16 18:35 06:30 21:52 02:20 Potassium Level 3.0 MEQ/L 3.4 MEQ/L 2.6 MEQ/L 2.6 MEQ/L Sodium Level 144 MEQ/L 148 MEQ/L Chloride Level 100 MEQ/L 104 MEQ/L Carbon Dioxide Level 34.4 MEQ/L 35.3 MEQ/L Anion Gap 10 MEQ/L 9 MEQ/L Blood Urea Nitrogen 49 MG/DL 54 MG/DL Creatinine 1.59 MG/DL 1.29 MG/DL Estimat Glomerular Filtration 34 ML/MIN 43 ML/MIN Rate Random Glucose 144 MG/DL 132 MG/DL Calcium Level 7.4 MG/DL 7.2 MG/DL 7.4 MG/DL Protein Corrected Calcium 8.1 MG/DL 8.2 MG/DL Phosphorus Level 2.1 MG/DL 2.1 MG/DL Magnesium Level 1.2 MG/DL 1.3 MG/DL 1.3 MG/DL Total Protein 5.9 GM/DL 5.7 GM/DL Microbiology Date/Time Procedure Status Source Growth 12/13/16 18:40 Aerobic Blood Culture - Preliminary Resulted Blood Peripheral NO GROWTH IN 1 DAY 12/13/16 18:40 Anaerobic Blood Culture - Preliminary Resulted Blood Peripheral NO GROWTH IN 1 DAY 12/13/16 21:52 Aerobic Blood Culture Received Blood Line Pending 12/13/16 21:52 Anaerobic Blood Culture Received Blood Line Pending Imaging Last Impressio Last Impressions Lung Scan-V Nuclear Medicine 12/09/16 0000 Signed Impressions: Service Date/Time: Friday, December 09, 2016 14:54 - CONCLUSION: Low probability for pulmonary embolism. Chaparro Baig MD Chest X-Ray 12/09/16 0000 Signed Impressions: Service Date/Time: Friday, December 09, 2016 10:12 - CONCLUSION: 1. Endotracheal tube 8 mm above the kaitlynn and could be retracted 3 cm. 2. Slight worsening airspace disease greater in the right lung. Chaparro Baig MD Lumbar Puncture Fluoroscopy 12/08/16 0000 Signed Impressions: Service Date/Time: December 16:10 - CONCLUSION: Uncomplicated fluoroscopically guided lumbar puncture with pressures as above. Dustin Hand MD Lower Extremity Ultrasound 12/08/16 Signed Impressions: Service Date/Time: December 14:46 - CONCLUSION: Normal examination. Jamel Stevenson MD Abdomen Ultrasound 12/08/16 Signed Impressions: Service Date/Time: December 14:15 - CONCLUSION: 1. No evidence of abdominal mass 2. Echogenic kidneys bilaterally compatible with medical renal disease. 3. Small bilateral effusions Dustin Hand MD Head CT 12/07/16 Signed Impressions: Service Date/Time: Wednesday, December 07, 2016 12:10 - CONCLUSION: Negative for acute process.. Gurwinder Hernandez MD FACR Brain MRI 12/07/16 Signed Impressions: Service Date/Time: Wednesday, December 07, 2016 15:03 - CONCLUSION: 1. Negative MRI of the brain. I do not see an etiology for the patient's metastatic disease. 2. I do not see obvious findings of a meningeal carcinomatosis either. Gurwinder Hernandez MD FACR Abdomen/Pelvis CT 12/07/16 0000 Signed Impressions: Service Date/Time: Wednesday, December 07, 2016 16:45 - CONCLUSION: 1. Abnormal lung bases with coarse interstitial changes suggesting fibrosis. 2. Abnormal left kidney. Pyelonephritis cannot be excluded without contrast. 3. The gallbladder appears prominent but unremarkable. 4. I do not see any etiology for the patient's abdominal pain. Gurwinder Hernandez MD FACR Physical Exam GENERAL: Awake, following, has alopecia, NAD. On the vent SKIN: No rashes. Has dark reddish color all distal fingers and toes (baseline) HEAD: Atraumatic. Normocephalic. No temporal or scalp tenderness. Alopecia EYES: No petechia, no hemorrhage. No scleral icterus. No injection or drainage. ENT: Orally intubated, no nasal discharge NECK: Trachea midline. Supple, nontender, no meningeal signs. CARDIOVASCULAR: HS audible. Port no evidence of infection RESPIRATORY: Breath sounds equal bilaterally. Coarse BS tommie GASTROINTESTINAL: Abdomen soft,non tender, non distended. MUSCULOSKELETAL: Extremities without clubbing, cyanosis, or edema. No joint effusion. ) NEUROLOGICAL: Awake and following Psych: could not be assessed. LINE: IV line sites, port with no evidence of infection : Noriega in place, urine looks clear Assessment & Plan Remarks IMPRESSION GNR sepsis - ID pending; not growing well, growing in aerobic bottle Septic Shock with Multiorgan dysfunction syndrome (MODS) - BP better, off pressors Meningitis: bacterial. - CSF C/S negative Aspiration pneumonia. Acute metabolic encephalopathy: Meningitis, Sepsis, SIADH Acute renal failure likely prerenal or sepsis Immune compromised, Small cell lung cancer with metastasis Anemia acute onset. Low grade temps Recommendations: Continue Cefepime Continue Oral Diflucan Continue Flagyl UA and C/S Follow C/S Follow temps Monitor progress Radha Martin MD Dec 14, 2016 14:52
--- NOTE | 2016-12-14 16:59 | HHI.PR ---
Subjective Remarks She is stable and on FIO2 40 %. No fever. Responds to command when off sedation. Good output. Objective Vital Signs Date Time Temp Pulse Resp B/P Pulse Ox O2 Delivery O2 Flow Rate FiO2 12/14/16 15:31 100 40 12/14/16 12:15 97 40 12/14/16 10:00 74 12/14/16 08:00 98.7 89 21 138/85 100 12/14/16 08:00 75 12/14/16 08:00 40 12/14/16 07:46 97 40 12/14/16 06:00 75 12/14/16 04:09 95 40 12/14/16 04:00 73 12/14/16 04:00 40 12/14/16 04:00 100.4 73 20 133/84 95 12/14/16 02:29 20 12/14/16 02:00 72 12/14/16 01:08 99 40 12/14/16 00:00 100.2 76 20 150/96 100 12/14/16 00:00 76 12/14/16 00:00 40 12/13/16 22:03 100 40 12/13/16 22:00 75 12/13/16 20:00 40 12/13/16 20:00 100.4 78 20 146/92 98 12/13/16 20:00 78 12/13/16 19:03 97 40 12/13/16 18:00 78 I/O 12/13/16 12/13/16 12/13/16 12/14/16 12/14/16 12/14/16 07:00 15:00 23:00 07:00 15:00 23:00 Intake Total 1419 ml 1695 ml 1059 ml 1026 ml Output Total 1335 ml 1600 ml 840 ml 850 ml Balance 84 ml 95 ml 219 ml 176 ml IV Total 833 ml 1289 ml 708 ml 694 ml Tube Feeding 556 ml 376 ml 291 ml 272 ml Other 30 ml 30 ml 60 ml 60 ml Output Urine Total 1335 ml 1600 ml 840 ml 850 ml # Bowel Movements 0 1 1 Result Diagram: 12/14/1621912/14/16219 Objective Remarks This is an averagely built middle-aged lady who is intubated, sedated, assisting the vent. HEENT: Head normocephalic. EYES: Pupils are reactive. Sclerae were clear. Tongue is moist. Throat has a few secretions. Ears have no inflammation. NECK: Supple. No bruits or thyroid enlargement. CHEST: Equal movements with scattered coarse wheezes throughout both lung butler with basal crackles. HEART: The heart sounds are regular S1-S2 with no murmur. No S3. ABDOMEN: Soft and protuberant without masses. No organomegaly. Bowel sounds are faint. EXTREMITIES: No lesions. Peripheral pulses are diminished. Reflexes not elicited. The patient is sedated. Skin was dry and cool. Assessment and Plan Assessment and Plan IMPRESSION 1. Ventilator dependent respiratory failure. 2. Bilateral pneumonia and ARDS 3. Has severe anemia 4. Acute kidney injury, resolving. 5. Small-cell lung cancer status post chemotherapy. 6. SIADH 7. History of asthma and chronic bronchitis 8. Hypertension Plan : 1. CPAP Trial daily.Wean FIo2 . 2. Nebs qid , albuterol. 3. Antibiotics per ID. 4. Tube feeds at 50cc. 5. Reduce sedation. 6. CBC, BMP in am Ronel Sparrow MD Dec 14, 2016 16:59
--- NOTE | 2016-12-14 17:11 | HHI.HCPN ---
Reason for visit a. To assist with evaluation and management of symptoms including: pain, dyspnea, anxiety b. To assist medical decision maker(s) with: better understanding of current medical conditions; weighing benefits/burdens of medical treatment options; making medical treatment decisions. . Subjective/Interval History Patient is more alert today. Tolerating CPAP trails this morning. Patient is able to respond to yes/no questions by nodding and shaking her head, following commands. Patient shakes her head "no" when asked if she is experiencing pain or shortness of breath. Remains on Precedex infusion. Morphine 4mg IV is available q4 hours PRN pain, none used over the previous 24 hours. Febrile overnight. = WBC 10.9 (previously 6.7 on ), hemoglobin 9.3, hematocrit 26.5, platelets 38 (increased from 26 on 12/13/16), neutrophils 57.1% = Sodium: 148, potassium 2.6, chloride 104, carbon dioxide 35.3, glucose 132, calcium 7.4, phosphorus 2.1, magnesium 1.3 = BUN 54, creatinine 1.29, GFR 43 Follow-up chest x-ray on 12/14/16 stable with small left pleural effusion and bilateral lower lung zone airspace opacity. Patient's was at bedside stating they met with oncology yesterday, and they were optimistic. Per oncology, they would be able to restart chemotherapy after the patient was discharged and regained her strength. Briefly discussed patient's underlying diagnosis of small cell lung cancer with metastatic disease and recent complications (i.e. sepsis, hyponatremia, weakness). Patient 's spouse understands there is a high probability that the patient will experience continued setbacks, but he remains optimistic. . Family/friend interactions Patient's was at bedside this morning and states a met with oncology yesterday. He states oncology was optimistic and felt they would be able to restart chemotherapy soon after the patient was discharged and regained her strength. We briefly discussed the patient's underlying diagnosis of small cell lung cancer with metastatic disease and the recent complications (i.e. sepsis, hyponatremia, weakness). Patient's spouse understands there is a high probability that the patient will experience continued setbacks, but he remains optimistic. Later met with the patient's brother and SOLITARIO. The patient's brother (José) has many questions about comfort focused care, transitioning to hospice and living dupree. José states his understanding is that the patient's diagnosis is terminal. He states the patient's life expectancy is 1-2 months without treatment and approximately one year with treatment. The patient's brother (José) has many questions about comfort focused care, transitioning to hospice and living dupree. José states his understanding is that the patient's diagnosis is terminal. He states the patient's life expectancy is 1-2 months without treatment and approximately one year with treatment. The patient's family verbalizes a desire to support the patient's goals . They would like to have conversations with the patient's to address possible goals of care in the future as well-palliative care will assist with facilitating these conversations. . Advance Directives Advance Directive Specifics Documented care wishes: None available at this time. . Significant change in goals: Family verbalized understanding that the patient is terminally ill and transitioning to comfort focus care will be appropriate at some time in the future-but not now. Patient's goals remain aggressive at this time. . Objective Vital Signs Date Time Temp Pulse Resp B/P Pulse Ox O2 Delivery O2 Flow Rate FiO2 12/14/16 15:31 100 40 12/14/16 12:15 97 40 12/14/16 10:00 74 12/14/16 08:00 98.7 89 21 138/85 100 12/14/16 08:00 75 12/14/16 08:00 40 12/14/16 07:46 97 40 12/14/16 06:00 75 12/14/16 04:09 95 40 12/14/16 04:00 73 12/14/16 04:00 40 12/14/16 04:00 100.4 73 20 133/84 95 12/14/16 02:29 20 12/14/16 02:00 72 12/14/16 01:08 99 40 12/14/16 00:00 100.2 76 20 150/96 100 12/14/16 00:00 76 12/14/16 00:00 40 12/13/16 22:03 100 40 12/13/16 22:00 75 12/13/16 20:00 40 12/13/16 20:00 100.4 78 20 146/92 98 12/13/16 20:00 78 12/13/16 19:03 97 40 12/13/16 18:00 78 Intake & Output 12/14/16 12/14/16 07:00 19:00 Intake Total 2085 ml Output Total 1690 ml Balance 395 ml IV Total 1402 ml Tube Feeding 563 ml Other 120 ml Output Urine Total 1690 ml # Bowel Movements 2 . Physical Exam CONSTITUTIONAL/GENERAL: This is an adequately nourished, middle aged female patient tolerating CPAP. TUBES/LINES/DRAINS: Noriega, OG tube, ETT, Port, PIV SKIN: No jaundice, rashes, or lesions. No wounds seen anteriorly. Skin temperature warm to touch HEAD: Atraumatic. Normocephalic. EYES: Pupils equal and round and sluggish. No injection or drainage. Fundi not examined. ENT:Nose without bleeding or purulent drainage. Orotracheally intubated. NECK: Trachea midline. Supple, nontender. No palpable thyroid enlargement or nodularity. CARDIOVASCULAR: Regular rate and rhythm without murmurs, gallops, or rubs. No JVD. Peripheral pulses symmetric. RESPIRATORY/CHEST: Orotracheally intubated, tolerating CPAP trials. Scattered coarse wheezing bilaterally. GASTROINTESTINAL: Abdomen soft, non-tender, nondistended. No guarding. Bowel sounds present. GENITOURINARY: Without palpable bladder distension. Noriega catheter in place. MUSCULOSKELETAL: Extremities without clubbing, cyanosis, or edema. No mottling or clubbing. LYMPHATICS: No palpable cervical or supraclavicular adenopathy. NEUROLOGICAL: Alert. Patient is able to respond to yes/no questions by nodding and shaking her head, following commands. Patient shakes her head "no" when asked if she is experiencing pain or shortness of breath. PSYCHIATRIC: Unable to assess given patient's current clinical condition. . Diagnostic Tests Laboratory Laboratory Tests Test 12/11/16 12/11/16 12/12/16 12/12/16 17:35 20:00 02:25 08:35 Potassium Level 3.8 MEQ/L 3.3 MEQ/L (3.5-5.1) (3.5-5.1) Blood Bank Comment White Blood Count 12.0 TH/MM3 (4.0-11.0) Red Blood Count 2.64 MIL/MM3 (4.00-5.30) Hemoglobin 8.2 GM/DL (11.6-15.3) Hematocrit 23.5 % (35.0-46.0) Mean Corpuscular Volume 89.0 FL (80.0-100.0) Mean Corpuscular Hemoglobin 30.9 PG (27.0-34.0) Mean Corpuscular Hemoglobin 34.7 % Concent (32.0-36.0) Red Cell Distribution Width 17.3 % (11.6-17.2) Platelet Count 38 TH/MM3 (150-450) Mean Platelet Volume 10.8 FL (7.0-11.0) Neutrophils (%) (Auto) 87.1 % (16.0-70.0) Lymphocytes (%) (Auto) 8.6 % (9.0-44.0) Monocytes (%) (Auto) 3.7 % (0.0-8.0) Eosinophils (%) (Auto) 0.0 % (0.0-4.0) Basophils (%) (Auto) 0.6 % (0.0-2.0) Neutrophils # (Auto) 10.4 TH/MM3 (1.8-7.7) Lymphocytes # (Auto) 1.0 TH/MM3 (1.0-4.8) Monocytes # (Auto) 0.4 TH/MM3 (0-0.9) Eosinophils # (Auto) 0.0 TH/MM3 (0-0.4) Basophils # (Auto) 0.1 TH/MM3 (0-0.2) CBC Comment AUTO DIFF Differential Comment AUTO DIFF CONFIRMED Platelet Estimate LOW (NORMAL) Platelet Morphology Comment NORMAL (NORMAL) Target Cells 1+ (NORMAL) Perera-Planada Bodies (NONE SEEN) Acanthocytes OCC (NORMAL) Keratocytes OCC (NORMAL) Prothrombin Time 12.1 SEC (9.8-11.6) Prothromb Time International 1.1 RATIO Ratio Activated Partial 24.5 SEC Thromboplast Time (24.3-30.1) Sodium Level 144 MEQ/L (136-145) Chloride Level 104 MEQ/L (98-107) Carbon Dioxide Level 30.6 MEQ/L (21.0-32.0) Anion Gap 9 MEQ/L (5-15) Blood Urea Nitrogen 38 MG/DL (7-18) Creatinine 1.38 MG/DL (0.50-1.00) Estimat Glomerular Filtration 40 ML/MIN (>89) Rate Random Glucose 130 MG/DL (74-106) Calcium Level 8.2 MG/DL (8.5-10.1) Phosphorus Level 2.4 MG/DL (2.5-4.9) Magnesium Level 1.5 MG/DL (1.5-2.5) Total Bilirubin 1.1 MG/DL (0.2-1.0) Aspartate Amino Transf 29 U/L (15-37) (AST/SGOT) Alanine Aminotransferase 23 U/L (10-53) (ALT/SGPT) Alkaline Phosphatase 101 U/L (45-117) Total Protein 5.7 GM/DL (6.4-8.2) Albumin 2.3 GM/DL (3.4-5.0) Blood Gas Puncture Site RT RADIAL Blood Gas Patient Temperature 98.6 Blood Gas HCO3 27 mmol/L (22-26) Blood Gas Base Excess 2.6 mmol/L (-2-2) Blood Gas Oxygen Saturation 89 % (90-100) Arterial Blood pH 7.43 (7.380-7.420) Arterial Blood Partial 41 mmHg (38-42) Pressure CO2 Arterial Blood Partial 63 mmHg Pressure O2 (61-120) Arterial Blood Oxygen Content 13.6 Vol % (12.0-20.0) Arterial Blood 1.7 % (0-4) Carboxyhemoglobin Arterial Blood Methemoglobin 1.1 % (0-2) Blood Gas Hemoglobin 10.8 G/DL (12.0-16.0) Oxygen Delivery Device VENTILATOR Blood Gas Ventilator Setting AC/500/PEEP 5 RR 20 Blood Gas Inspired Oxygen 55 % Test 12/12/16 12/13/16 12/13/16 12/14/16 18:35 06:30 21:52 02:20 Potassium Level 3.0 MEQ/L 3.4 MEQ/L 2.6 MEQ/L 2.6 MEQ/L (3.5-5.1) (3.5-5.1) (3.5-5.1) (3.5-5.1) White Blood Count 6.7 TH/MM3 10.9 TH/MM3 (4.0-11.0) (4.0-11.0) Red Blood Count 3.13 MIL/MM3 2.96 MIL/MM3 (4.00-5.30) (4.00-5.30) Hemoglobin 9.7 GM/DL 9.3 GM/DL (11.6-15.3) (11.6-15.3) Hematocrit 27.6 % 26.5 % (35.0-46.0) (35.0-46.0) Mean Corpuscular Volume 88.2 FL 89.5 FL (80.0-100.0) (80.0-100.0) Mean Corpuscular Hemoglobin 31.0 PG 31.4 PG (27.0-34.0) (27.0-34.0) Mean Corpuscular Hemoglobin 35.1 % 35.1 % Concent (32.0-36.0) (32.0-36.0) Red Cell Distribution Width 16.5 % 16.9 % (11.6-17.2) (11.6-17.2) Platelet Count 26 TH/MM3 38 TH/MM3 (150-450) (150-450) Mean Platelet Volume 12.1 FL 13.0 FL (7.0-11.0) (7.0-11.0) Neutrophils (%) (Auto) 65.7 % 57.1 % (16.0-70.0) (16.0-70.0) Lymphocytes (%) (Auto) 24.2 % 32.7 % (9.0-44.0) (9.0-44.0) Monocytes (%) (Auto) 9.7 % (0.0-8.0) 9.8 % (0.0-8.0) Eosinophils (%) (Auto) 0.1 % (0.0-4.0) 0.2 % (0.0-4.0) Basophils (%) (Auto) 0.3 % (0.0-2.0) 0.2 % (0.0-2.0) Neutrophils # (Auto) 4.4 TH/MM3 6.3 TH/MM3 (1.8-7.7) (1.8-7.7) Lymphocytes # (Auto) 1.6 TH/MM3 3.6 TH/MM3 (1.0-4.8) (1.0-4.8) Monocytes # (Auto) 0.7 TH/MM3 1.1 TH/MM3 (0-0.9) (0-0.9) Eosinophils # (Auto) 0.0 TH/MM3 0.0 TH/MM3 (0-0.4) (0-0.4) Basophils # (Auto) 0.0 TH/MM3 0.0 TH/MM3 (0-0.2) (0-0.2) CBC Comment AUTO DIFF AUTO DIFF Differential Comment AUTO DIFF AUTO DIFF CONFIRMED CONFIRMED Platelet Estimate LOW (NORMAL) LOW (NORMAL) Platelet Morphology Comment ENLARGED ENLARGED (NORMAL) (NORMAL) Target Cells 2+ (NORMAL) 1+ (NORMAL) Helmet Cells OCC (NORMAL) Perera-Planada Bodies PRESENT (NONE PRESENT (NONE SEEN) SEEN) Acanthocytes OCC (NORMAL) OCC (NORMAL) Sodium Level 144 MEQ/L 148 MEQ/L (136-145) (136-145) Chloride Level 100 MEQ/L 104 MEQ/L (98-107) (98-107) Carbon Dioxide Level 34.4 MEQ/L 35.3 MEQ/L (21.0-32.0) (21.0-32.0) Anion Gap 10 MEQ/L (5-15) 9 MEQ/L (5-15) Blood Urea Nitrogen 49 MG/DL (7-18) 54 MG/DL (7-18) Creatinine 1.59 MG/DL 1.29 MG/DL (0.50-1.00) (0.50-1.00) Estimat Glomerular Filtration 34 ML/MIN (>89) 43 ML/MIN (>89) Rate Random Glucose 144 MG/DL 132 MG/DL (74-106) (74-106) Calcium Level 7.4 MG/DL 7.2 MG/DL 7.4 MG/DL (8.5-10.1) (8.5-10.1) (8.5-10.1) Protein Corrected Calcium 8.1 MG/DL 8.2 MG/DL (8.5-10.1) (8.5-10.1) Phosphorus Level 2.1 MG/DL 2.1 MG/DL (2.5-4.9) (2.5-4.9) Magnesium Level 1.2 MG/DL 1.3 MG/DL 1.3 MG/DL (1.5-2.5) (1.5-2.5) (1.5-2.5) Total Protein 5.9 GM/DL 5.7 GM/DL (6.4-8.2) (6.4-8.2) Keratocytes OCC (NORMAL) Prothrombin Time 14.0 SEC (9.8-11.6) Prothromb Time International 1.3 RATIO Ratio Activated Partial 25.5 SEC Thromboplast Time (24.3-30.1) Fibrinogen 296 mg/dL (181-393) Test 12/14/16 12/14/16 04:35 11:40 Blood Gas Puncture Site RT RADIAL RT RADIAL Blood Gas Patient Temperature 98.6 98.6 Blood Gas HCO3 31 mmol/L 30 mmol/L (22-26) (22-26) Blood Gas Base Excess 8.0 mmol/L 6.9 mmol/L (-2-2) (-2-2) Blood Gas Oxygen Saturation 92 % (90-100) 94 % (90-100) Arterial Blood pH 7.55 7.51 (7.380-7.420) (7.380-7.420) Arterial Blood Partial 35 mmHg (38-42) 39 mmHg (38-42) Pressure CO2 Arterial Blood Partial 68 mmHg 84 mmHg Pressure O2 (61-120) (61-120) Arterial Blood Oxygen Content 11.3 Vol % 11.7 Vol % (12.0-20.0) (12.0-20.0) Arterial Blood 1.7 % (0-4) 1.7 % (0-4) Carboxyhemoglobin Arterial Blood Methemoglobin 1.0 % (0-2) 1.2 % (0-2) Blood Gas Hemoglobin 8.8 G/DL 8.8 G/DL (12.0-16.0) (12.0-16.0) Oxygen Delivery Device VENTILATOR VENTILATOR Blood Gas Ventilator Setting PRVC/AC CPAP+5/PS+5 Blood Gas Inspired Oxygen 40 % 40 % . Result Diagram: 12/14/1621912/14/16219 Microbiology Microbiology Date/Time Procedure Status Source Growth 12/13/16 18:40 Aerobic Blood Culture - Preliminary Resulted Blood Peripheral NO GROWTH IN 1 DAY 12/13/16 18:40 Anaerobic Blood Culture - Preliminary Resulted Blood Peripheral NO GROWTH IN 1 DAY 12/13/16 21:52 Aerobic Blood Culture Received Blood Line Pending 12/13/16 21:52 Anaerobic Blood Culture Received Blood Line Pending Imaging Last 72 hours Impressions Chest X-Ray 12/14/16 0000 Signed Impressions: Service Date/Time: Wednesday, December 14, 2016 10:35 - CONCLUSION: 1. Stable chest x-ray with small left pleural effusion and bilateral lower lung zone airspace opacity. 2. Endotracheal tube in stable position with tip measuring 14 mm from the kaitlynn. Bakari Charles MD Chest X-Ray 12/13/16 0000 Signed Impressions: Service Date/Time: Tuesday, December 13, 2016 07:26 - CONCLUSION: Significant interval improvement of the bilateral airspace consolidation. The bilateral consolidation is currently mild and lower lung zone predominant. Endotracheal tube tip remains 11 mm from the kaitlynn. Bakari Charles MD Chest X-Ray 12/12/16 0000 Signed Impressions: Service Date/Time: Monday, December 12, 2016 08:08 - CONCLUSION: 1. Persistent severe diffuse bilateral airspace consolidation that appears slightly improved in the right lower lung zone but worsened in the left upper lung zone. 2. Left pleural effusion remains present. 3. Endotracheal tube tip measures only approximately 11 mm in the kaitlynn. Consider retraction. Bakari Charles MD . Procedures 12/07/16 lumbar puncture 12/08/16 intubation . Assessment and Plan Disease Oriented Problem List: (1) Hyponatremia (2) Hypokalemia (3) SIADH (syndrome of inappropriate ADH production) (4) Lung cancer, primary, with metastasis from lung to other site (5) Acute renal failure (6) Thrombocytopenia (7) Sepsis (8) Elevated LFTs (9) SCLC (small cell lung carcinoma) (10) Altered mental status (11) Tobacco abuse (12) Asthma (13) HTN (hypertension) (14) Bacteremia (15) Chronic obstructive pulmonary disease (16) Anemia Symptom Scale: (1) Anxiety 0-10 Scale: Unable to quantify (2) Dyspnea 0-10 Scale: Unable to quantify (3) Pain 0-10 Scale: Unable to quantify Comment: Morphine 1 mg IV q4 hours PRN for pain, none administered in the previous 24 hour time span. Pertinent Non-Medical Issues Psychosocial: Patient was born and raised in [place], [place]. She is , currently living in [place]. She has no children. The patient has a college degree but is unemployed at this time. Patient has 2 siblings, Natalee and José, who live locally. 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 Ethical issues impacting care: None known at this time . Important Contacts Bakari Galaviz, spouse: [phone] Natalee Aponte, sister: [phone] José Henderson: [phone] . Prognosis Patient was diagnosed with extensive stage small cell lung cancer for which she was receiving chemotherapy consisting of cisplatin and etoposide. She has metastatic disease to the liver. A liver biopsy was completed on 10/14/16- results were consistent with small cell lung cancer. Patient has received 2 rounds of chemotherapy. 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 Patient has become progressively more weak per family who verbalized concern she is unable to tolerate further treatment. Overall prognosis is poor. . Code Status: Full Code Plan * FULL CODE * Decision making: Patient is currently intubated and does not have capacity to participate in health care decision making. It is unclear at this time if the patient will regain capacity. Per [place] statutes in the absence of written advanced directives healthcare proxy decision-making falls to the patient's , Bakari Galaviz. * Goals: Goals remain aggressive. Plan to continue chemotherapy when patient is discharged and regains her strength. * Patient's was at bedside this morning and states a met with oncology yesterday. He states oncology was optimistic and felt they would be able to restart chemotherapy soon after the patient was discharged and regained her strength. We briefly discussed the patient's underlying diagnosis of small cell lung cancer with metastatic disease and the recent complications (i.e. sepsis, hyponatremia, weakness). Patient's spouse understands there is a high probability that the patient will experience continued setbacks, but he remains optimistic. * The patient's brother (José) has many questions about comfort focused care, transitioning to hospice and living dupree. José states his understanding is that the patient's diagnosis is terminal. He states the patient's life expectancy is 1-2 months without treatment and approximately one year with treatment. The patient's family verbalizes a desire to support the patient's goals . They would like to have conversations with the patient's to address possible goals of care in the future as well-palliative care will assist with facilitating these conversations. * Symptom managementpain: Possible causes of pain may include disease progression, comorbid conditions, invasiveness lines, immobility, bedbound status etc. On Precedex infusion. Morphine 1 mg IV is available q4 hours PRN for pain, none administered over the previous 24 hours. Palliative care will monitor PRN requirements and make recommendations as indicated. * Symptom managementdyspnea: Patient denies shortness of breath. She CPAP trials this morning but was unable to be extubated secondary to tachypnea and arterial blood gas. CXR overall better today. * Symptom managementanxiety: No sign/symptoms of anxiety observed. Potential for anxiety secondary to cancer diagnosis, intubation, dyspnea, invasiveness lines, immobility etc. Patient remains on Precedex infusion. * Palliative care contact information provided to patient's sister and brother, message with contact information left per patient's (Vish) via voicemail. * Palliative care will continue to follow this patient throughout her hospitalization to establish trust, assist with symptom management and clarification of medical treatment goals. Jordana Jc Dec 14, 2016 17:11 (14) Bacteremia (15) Chronic obstructive pulmonary disease (16) Anemia Symptom Scale: (1) Anxiety 0-10 Scale: Unable to quantify (2) Dyspnea 0-10 Scale: Unable to quantify (3) Pain 0-10 Scale: Unable to quantify Comment: Morphine 1 mg IV q4 hours PRN for pain, none administered in the previous 24 hour time span. Pertinent Non-Medical Issues Psychosocial: Patient was born and raised in [place], [place]. She is , currently living in [place]. She has no children. The patient has a college degree but is unemployed at this time. Patient has 2 siblings, Natalee and José, who live locally. 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 Ethical issues impacting care: None known at this time . Important Contacts Bakari Galaviz, spouse: [phone] Natalee Aponte, sister: [phone] José Henderson: [phone] . Prognosis Patient was diagnosed with extensive stage small cell lung cancer for which she was receiving chemotherapy consisting of cisplatin and etoposide. She has metastatic disease to the liver. A liver biopsy was completed on 1/6/17- results were consistent with small cell lung cancer. Patient has received 2 rounds of chemotherapy. 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 Patient has become progressively more weak per family who verbalized concern she is unable to tolerate further treatment. Overall prognosis is poor. . Code Status: Full Code Plan * FULL CODE * Decision making: Patient is currently intubated and does not have capacity to participate in health care decision making. It is unclear at this time if the patient will regain capacity. Per [place] statutes in the absence of written advanced directives healthcare proxy decision-making falls to the patient's , Bakari Galaviz. * Goals: Goals remain aggressive. Plan to continue chemotherapy when patient is discharged and regains her strength. * Patient's was at bedside this morning and states a met with oncology yesterday. He states oncology was optimistic and felt they would be able to restart chemotherapy soon after the patient was discharged and regained her strength. We briefly discussed the patient's underlying diagnosis of small cell lung cancer with metastatic disease and the recent complications (i.e. sepsis, hyponatremia, weakness). Patient's spouse understands there is a high probability that the patient will experience continued setbacks, but he remains optimistic. * The patient's brother (José) has many questions about comfort focused care, transitioning to hospice and living dupree. José states his understanding is that the patient's diagnosis is terminal. He states the patient's life expectancy is 1-2 months without treatment and approximately one year with treatment. The patient's family verbalizes a desire to support the patient's goals . They would like to have conversations with the patient's to address possible goals of care in the future as well-palliative care will assist with facilitating these conversations. * Symptom managementpain: Possible causes of pain may include disease progression, comorbid conditions, invasiveness lines, immobility, bedbound status etc. On Precedex infusion. Morphine 1 mg IV is available q4 hours PRN for pain, none administered over the previous 24 hours. Palliative care will monitor PRN requirements and make recommendations as indicated. * Symptom managementdyspnea: Patient denies shortness of breath. She CPAP trials this morning but was unable to be extubated secondary to tachypnea and arterial blood gas. CXR overall better today. * Symptom managementanxiety: No sign/symptoms of anxiety observed. Potential for anxiety secondary to cancer diagnosis, intubation, dyspnea, invasiveness lines, immobility etc. Patient remains on Precedex infusion. * Palliative care contact information provided to patient's sister and brother, message with contact information left per patient's (Vish) via voicemail. * Palliative care will continue to follow this patient throughout her hospitalization to establish trust, assist with symptom management and clarification of medical treatment goals. Jordana Jc Dec 14, 2016 17:11
[2016-12-14 18:17] LABS: MAGNESIUM 2.1 MG/DL (1.5-2.5); POTASSIUM 3.2 MEQ/L (3.5-5.1)
[2016-12-14 22:18] LABS: BLOOD, URINE MOD (NEG); GLUCOSE,URINE TRACE mg/dL (NEG); KETONE, URINE NEG (NEG); MUCUS URINE FEW /lpf (OCC); NITRITE,URINE NEG (NEG); SQUAMOUS EPITHELIAL CELL URINE <1 /hpf (0-5); URINE COLOR YELLOW (YELLW/STRAW)
[2016-12-14 22:19] LABS: COMMENT (UR) CATH-CULT NOT IND; CULTURE IF INDICATED CATH CULTURE NOT IND
[2016-12-15] VITALS (22 sets, daily range): BP systolic 119–172; BP diastolic 79–105; PULSE 71–116; RESP 19–24; TEMP 97–99.9; O2SAT 40–100
[2016-12-15] MEDS: NS + KCL 40 MEQ INJ 1,000 ML IV SCH ×3 (00:43→14:44)
[2016-12-15] MEDS: DEXMEDETOMIDINE INJ 50 ML IV SCH ×6 (00:44→23:34)
[2016-12-15] MEDS: MORPHINE SULFATE 4 MG/ML INJ IV PUSH PRN (00:47)
[2016-12-15] MEDS: CEFEPIME INJ 2,000 MG in SODIUM CHLORIDE 0.9% INJ 100 ML IV SCH ×4 (00:47→23:35)
[2016-12-15] MEDS ORDERED: hydrALAZINE HCL 20 MG/ML VIAL IV PRN (02:15)
[2016-12-15] MEDS: levETIRAcetam INJ 1,000 MG in SODIUM CHLORIDE 0.9% INJ 100 ML IV SCH ×2 (02:22→15:16)
[2016-12-15] MEDS: CHLORHEXIDINE GLUCONATE 2 % 1 PACK (2 CLOTHS) TOP SCH (04:00)
[2016-12-15 04:14] LABS: HEMATOCRIT 26.8 % (35.0-46.0); MEAN CELL VOLUME 91.1 FL (80.0-100.0); MEAN CORPUSCULAR HEMOGLOBIN 31.1 PG (27.0-34.0); MEAN CORPUSCULAR HGB CONC 34.1 % (32.0-36.0); PLATELET COUNT 54 TH/MM3 (150-450); RED BLOOD COUNT 2.94 MIL/MM3 (4.00-5.30); RED CELL DISTRIBUTION WIDTH 17.4 % (11.6-17.2); WHITE BLOOD COUNT 8.8 TH/MM3 (4.0-11.0)
[2016-12-15 04:20] LABS: REVIEW FLAG FINAL
[2016-12-15 04:38] LABS: BICARBONATE 26.1 MEQ/L (21.0-32.0); MAGNESIUM 1.6 MG/DL (1.5-2.5); POTASSIUM 4.1 MEQ/L (3.5-5.1)
[2016-12-15 05:07] LABS: CALCIUM-PROTEIN CORRECTED 8.1 MG/DL (8.5-10.1)
[2016-12-15] MEDS: INSULIN NovoLIN REGULAR SUPPLEMENTAL SCALE SQ SCH ×5 (05:32→23:35)
[2016-12-15] MEDS: SENNOSIDES SYRUP 8.8 MG/5 ML CUP PO SCH (05:33)
[2016-12-15] MEDS: DOCUSATE SODIUM 100 MG/10 ML UDC PO SCH ×2 (05:33→20:56)
[2016-12-15] MEDS: metroNIDAZOLE 500 MG TAB PO SCH ×2 (06:02→14:00)
[2016-12-15] MEDS: PANTOPRAZOLE SODIUM 40 MG VIAL IV SCH (08:18)
[2016-12-15] MEDS: DEXAMETHASONE SOD PHOS 20 MG/5 ML VIAL IV PUSH SCH ×2 (08:19→20:55)
[2016-12-15] MEDS: CHLORHEXIDINE 0.12% (ORAL KIT) 15 ML CUP MT SCH ×2 (08:19→20:56)
--- NOTE | 2016-12-15 08:22 | RADRPT ---
EXAM DATE/TIME: 12/15/2016 08:00 [facility] COMPARISON: CHEST SINGLE AP, December 14, 2016, 10:35. INDICATIONS : Respiratory status. MEDICAL HISTORY : Hypertension. Emphysema. cancer lung SURGICAL HISTORY : None. ENCOUNTER: Subsequent ACUITY: 4 - 6 days PAIN SCORE: 7/10 LOCATION: Bilateral upper chest FINDINGS: Portable AP view of the chest demonstrates a normal size cardiac silhouette. ETT and NG tube remain p resent. Multiple EKG lines overlie the patient. There is mild airspace consolidation in the right low er lung zone. There is improved aeration at the left lung base. No pneumothorax or pleural effusion i s appreciated. CONCLUSION: Improved aeration at the lung bases with residual mild consolidation in the right lower lung zone. Bakari Charles MD on December 15, 2016 at 8:19 Board Certified Radiologist. This report was verified electronically.
[2016-12-15] MEDS: FLUCONAZOLE 100 MG TAB PO SCH (08:28)
[2016-12-15] MEDS: METOPROLOL TARTRATE 25 MG TAB PO SCH ×2 (08:29→20:56)
[2016-12-15] MEDS ORDERED: BUMETANIDE INJ 1 MG/4 ML VIAL IV PUSH ONE (08:45)
[2016-12-15] MEDS ORDERED: POTASSIUM CHLOR 40 MEQ PREMIX 100 ML IV ONE (08:45)
[2016-12-15] MEDS ORDERED: CALCIUM CHLORIDE INJ 1 GM in DEXTROSE 5% IN WATER 100ML INJ 100 ML IV ONE ×2 (09:00)
[2016-12-15 10:06] LABS: BLOOD GAS CARBOXYHEMOGLOBIN 1.4 % (0-4); BLOOD GAS HCO3 24 mmol/L (22-26); BLOOD GAS O2 HGB SATURATION 94 % (90-100); BLOOD GAS OXYGEN CONTENT 15.5 Vol % (12.0-20.0); BLOOD GAS PCO2 34 mmHg (38-42); BLOOD GAS PO2 84 mmHg (61-120); BLOOD GAS TOTAL HGB 11.6 G/DL (12.0-16.0); CRITICAL VALUE NO; DRAW SITE RT RADIAL; FIO2 35 %; NUMBER OF ARTERIAL PUNCTURES 1; OXYGEN DEVICE VENTILATOR; STAT NO; TEMP CORR TO 98.6; ULNAR PULSE PRESENT; VENT SETTINGS CPAP5/PS 5
[2016-12-15] MEDS ORDERED: RESP: ALBUTEROL 2.5 MG/IPRATROPIUM 0.5 MG NEB (PRN) NEB (10:30)
--- NOTE | 2016-12-15 10:34 | HHI.CCPN ---
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 She presented to [facility] ED with altered mental status, lethargy and fever for the past couple days. Her last chemotherapy was two days ago however when the patient went to receive another session yesterday it was not given due to her condition and instead she was given IV hydration. On arrival to the ED, the patient was tachycardic with a heart rate of 110-120s and initially she was hypotensive with a systolic blood pressure 80s-90s. She also was found to have a temperature of 100.7 rectally. In the ED she was given 2 liter boluses of normal saline with improvement of her blood pressure to 141/ 86. Her laboratory data showed mild acute kidney injury with a creatinine level of 1.31 and hyponatremia with a sodium level of 131. In addition, the patient had significant leukocytosis with a WBC of 71.4 associated with bandemia 28. Also, her hemoglobin was 6.8 with hematocrit of 20.2. Two units of packed RBCs have been ordered by the ED physician. The patient received a Neulasta injection post her chemotherapy. Due to her altered mental status, a CT scan of the brain was obtained which was negative for acute process. The patient also had MRI of the brain which was negative for any metastatic disease. A chest x-ray in the ED showed Infusaport in good position and mild interstitial prominence. The patient received Vancomycin and cefepime in the ED , and a CT scan of the abdomen and pelvis has been ordered. Overall, history is limited as the patient is a poor historian. However, she is not complaining of any pain. 3/ Last night patient became tachycardic, hypoxic and worsening mental status she was subsequently intubated and placed on mechanical ventilation. She received additional 2L NS for hypotension and started on Neosyn 50 mics. s/p transfusion 2u PRBC yesterday for Hgb 6.8 her Hgb 11.2 this morning. 12/09 Patient remains sedated with Diprivan and intubated. On Neosyn 40 mics and bicarb drip. T:99.9 last night WBC trending down 24 today from 55. s/p LP showed clear CSF, WBC 978, TP:179 , nl glc 12/10 Patient is sedated with Diprivan and intubated. Off Neosyn. Afebrile. V/Q scaln yesterday low prob. BC from 12/07 GNR. 12/11 No acute events overnight. Sedated with Diprivan and intubated. Afebrile. WBC trending down. PLT 18 this morning. Tolerated CPAP x 4 hrs yesterday 12/12 Patient remains sedated and intubated. On ACV RR20, TV 500, PEEP:5, FIO2 55% . Afebrile. s/p transfusion 1u PLT and FFP yesterday per heme. 12/13 No acute events overnight. On Precedex infusion . CXR overall better today. Off Bumex drip. Afebrile. 12/14: Remains intubated, awake. UO adequate off Bumex drip. CXR stable to improving. Plt count 38. 12/15: Remains intubated, wide awake and following commands. CXR today improved. Bilateral wheezing Objective Vital Signs Date Time Temp Pulse Resp B/P Pulse Ox O2 Delivery O2 Flow Rate FiO2 12/15/16 08:54 100 35 12/15/16 06:00 71 12/15/16 04:00 98.9 24 119/79 Intake and Output 12/14/16 12/14/16 12/15/16 08:00 16:00 00:00 Intake Total 1026 ml 2185 ml 1974 ml Output Total 850 ml 1500 ml 950 ml Balance 176 ml 685 ml 1024 ml Result Diagram: 12/15/16 0350 12/15/16 0350 Other Results Laboratory Tests Test 12/14/16 12/15/16 11:40 09:47 Blood Gas Puncture Site RT RADIAL RT RADIAL Blood Gas Patient Temperature 98.6 98.6 Blood Gas HCO3 30 mmol/L 24 mmol/L (22-26) (22-26) Blood Gas Base Excess 6.9 mmol/L 1.0 mmol/L (-2-2) (-2-2) Blood Gas Oxygen Saturation 94 % (90-100) 94 % (90-100) Arterial Blood pH 7.51 7.47 (7.380-7.420) (7.380-7.420) Arterial Blood Partial 39 mmHg (38-42) 34 mmHg (38-42) Pressure CO2 Arterial Blood Partial 84 mmHg 84 mmHg Pressure O2 (61-120) (61-120) Arterial Blood Oxygen Content 11.7 Vol % 15.5 Vol % (12.0-20.0) (12.0-20.0) Arterial Blood 1.7 % (0-4) 1.4 % (0-4) Carboxyhemoglobin Arterial Blood Methemoglobin 1.2 % (0-2) 1.0 % (0-2) Blood Gas Hemoglobin 8.8 G/DL 11.6 G/DL (12.0-16.0) (12.0-16.0) Oxygen Delivery Device VENTILATOR VENTILATOR Blood Gas Ventilator Setting CPAP+5/PS+5 CPAP5/PS 5 Blood Gas Inspired Oxygen 40 % 35 % Imaging Last Impressions Chest X-Ray 12/12/16 0000 Signed Impressions: Service Date/Time: Monday, December 12, 2016 08:08 - CONCLUSION: 1. Persistent severe diffuse bilateral airspace consolidation that appears slightly improved in the right lower lung zone but worsened in the left upper lung zone. 2. Left pleural effusion remains present. 3. Endotracheal tube tip measures only approximately 11 mm in the kaitlynn. Consider retraction. Bakari Charles MD Lung Scan-V Nuclear Medicine 12/09/16 0000 Signed Impressions: Service Date/Time: Friday, December 09, 2016 14:54 - CONCLUSION: Low probability for pulmonary embolism. Chaparro Baig MD Lumbar Puncture Fluoroscopy 12/08/16 0000 Signed Impressions: Service Date/Time: December 16:10 - CONCLUSION: Uncomplicated fluoroscopically guided lumbar puncture with pressures as above. Dustin Hand MD Lower Extremity Ultrasound 12/08/16 0000 Signed Impressions: Service Date/Time: December 14:46 - CONCLUSION: Normal examination. Jamel Stevenson MD Abdomen Ultrasound 12/08/16 0000 Signed Impressions: Service Date/Time: December 14:15 - CONCLUSION: 1. No evidence of abdominal mass 2. Echogenic kidneys bilaterally compatible with medical renal disease. 3. Small bilateral effusions Dustin Hand MD Head CT 12/07/16 0000 Signed Impressions: Service Date/Time: Wednesday, December 07, 2016 12:10 - CONCLUSION: Negative for acute process.. Gurwinder Hernandez MD FACR Brain MRI 12/07/16 0000 Signed Impressions: Service Date/Time: Wednesday, December 07, 2016 15:03 - CONCLUSION: 1. Negative MRI of the brain. I do not see an etiology for the patient's metastatic disease. 2. I do not see obvious findings of a meningeal carcinomatosis either. Gurwinder Hernandez MD FACR Abdomen/Pelvis CT 12/07/16 0000 Signed Impressions: Service Date/Time: Wednesday, December 07, 2016 16:45 - CONCLUSION: 1. Abnormal lung bases with coarse interstitial changes suggesting fibrosis. 2. Abnormal left kidney. Pyelonephritis cannot be excluded without contrast. 3. The gallbladder appears prominent but unremarkable. 4. I do not see any etiology for the patient's abdominal pain. Gurwinder Hernandez MD FACR Objective Remarks GENERAL: Patient is 51 yo critically ill appearing intubated and sedated, wakes up easily follows command SKIN: Warm and dry. HEAD: Normocephalic. EYES: No scleral icterus. No injection or drainage. NECK: Supple, trachea midline. No JVD or lymphadenopathy. Orally intubated CARDIOVASCULAR: Tachycardic without murmurs, gallops, or rubs. RESPIRATORY: Breath sounds equal bilaterally. Bilateral expiratory wheezing GASTROINTESTINAL: Abdomen soft, mild tenderness on palpation. MUSCULOSKELETAL: No cyanosis, or edema. Neuro: Awake alert. Follows commands all 4 extremities Urinary Catheter: Yes Assessment to: Continue A/P Assessment and Plan ASSESSMENT: Acute respiratory failure Possible aspiration pneumonia Bacterial Meningitis Severe sepsis Anemia, thrombocytopenia Acute kidney injury Encephalopathy Small cell lung cancer status post chemotherapy Chronic hyponatremia. 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 Hyperglycemia Elevated AST Hypertension. GERD. History of bronchial asthma. PLAN: Neuro: On Precedex infusion. Monitor neuro status closely CT brain and MRI brain negative for acute process EEG showed diffuse encephalopathy- on Keppra IV Q12, Decadron 10mg Q6 s/p LP 12/08 - clear CSF, WBC 978, TP:179, nl Glc, 96 Neutrophils. Continue with abx, taper steroids- had been on Decadron 10mg BID reduce to 5mg BID from 12/16/16 Neuro: Dr. Howe Pulm: Continue with vent support and maintain sats above 90%. On AC RR 20, TV 500, PEEP:8, FIO2 40%. SBT for possible extubation Bronchodilators , ICU vent bundle. SBT as lazaro when appropriate. CXR improving. Pulm is following- Dr. Sparrow. V/Q scan- Low prob PE CV: On Lopressor 25mg Q12. monitor HR and BP and maintain MAP > 65 mmHg. Lactic acid: 1.8 Echo showed diffuse hypokinesis EF 25-30% IV Bumex 1 gm x1 : Monitor renal function, Is and Os and electrolyte replacement per protocol. Cr: 1.1 today. 3.3L UO in 24 hours Off Bumex 12/13/16 CT abd/pelvis : Pyelonephritis could not be excluded . US abdomen: No masses, medical renal disease GI: On Protonix 40 mg IV daily for GI prophylaxis. TF-Glucerna 1.5 @ 45ml/hr on Reglan 5mg Q8 PRN high residuals. Colace/Senna for bowel regimen. ID: Continue with abx per ID (Cefepime, Flagyl, Diflucan) Strep pneumonia and Legionella urinary antigen negative. s/p LP 12/07-studies consistent with bacterial meningitis, follow up on LP results- NGTD BC from 12/07: GNR x2 bottles. follow up on BC from 12/10 .WBC trending down Heme: Monitor CBC, coags, s/p transfusion 2 units of PRBC on arrival. Heme-Onc is following- Dr. Gama. Follow up on Cytology of CSF ( pending ) s/p transfusion 1u PLT and 2u FFP 12/11. Further transfusion per heme. PLT 38 this morning. H/H stable. Endo: SSI with Accu-Cheks for glycemic control. GI prophylaxis with Protonix 40 mg daily and DVT prophylaxis with SCDs. Not on chemical anticoagulation prophylaxis due to anemia requiring blood transfusions and thrombocytopenia 3/ Doppler US LE negative for DVT 12/09 V/Q scan low prob PE Lines: Right Infuse A port Dr. Ortiz Consulted palliative care to asses with goals of care CCT 30 mins . Tracy Villegas MD Dec 15, 2016 10:34
[2016-12-15] MEDS: RESP: ALBUTEROL 2.5 MG/IPRATROPIUM 0.5 MG NEB (SCH) NEB ×4 (11:07→23:13)
--- NOTE | 2016-12-15 11:35 | HHI.IDPN ---
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 Patient undergoes chemotherapy last session on Nov 11 with last dose of Neulasta on Nov 11 (per Oncology). Admitted with severe sepsis. Also has meningitis based on LP, but C/S negative Growing GNB from BC from 12/07 11/10 - no ID yet, sent to [facility] for ID On the vent and has tommie infiltrates WBC is ok, not neutropenic Notes reviewed Extubated overnight. Temps 99 F Awake and following commands. Oriented to place and person. No seizures. No rash Still no ID on GNR in BC from 12/07: sent to [facility]. Followup BC negative so far Antibiotics Cefepime Flagyl Fluconazole Lines Port R upper chest Past Medical History reviewed Allergies: Coded Allergies: Lipitor (Verified Adverse Reaction, Severe, Myalgia, 12/07/16) Codeine (Verified Adverse Reaction, Intermediate, Sedation, 12/07/16) Uncoded Allergies: SEASONAL ALLERGIES (Allergy, Mild, 03/13/08) estroven (Adverse Reaction, Intermediate, raised BP, 06/12/15) Objective . Vital Signs Date Time Temp Pulse Resp B/P Pulse Ox O2 Delivery O2 Flow Rate FiO2 12/15/16 10:00 73 12/15/16 08:54 100 35 12/15/16 08:00 35 12/15/16 08:00 97 12/15/16 08:00 97.0 97 22 134/79 100 12/15/16 06:00 71 12/15/16 04:23 96 12/15/16 04:05 100 35 12/15/16 04:00 116 12/15/16 04:00 35 12/15/16 04:00 98.9 116 24 119/79 100 12/15/16 02:00 74 12/15/16 01:06 99 40 12/15/16 01:00 172/105 12/15/16 00:00 40 12/15/16 00:00 99.9 74 20 158/100 100 12/15/16 00:00 74 12/14/16 23:50 100 40 12/14/16 22:09 100 40 12/14/16 22:00 71 12/14/16 20:00 70 12/14/16 20:00 99.9 72 21 125/77 98 12/14/16 20:00 40 12/14/16 19:43 100 40 12/14/16 18:00 74 12/14/16 16:00 72 12/14/16 16:00 97.9 72 20 145/63 95 12/14/16 16:00 40 12/14/16 15:31 100 40 12/14/16 14:00 74 12/14/16 12:15 97 40 12/14/16 12:00 40 12/14/16 12:00 75 12/14/16 12:00 98.7 89 21 138/85 100 12/14/16 12/14/16 12/15/16 15:00 23:00 07:00 Intake Total 2185 ml 1974 ml 1892 ml Output Total 1500 ml 950 ml 1500 ml Balance 685 ml 1024 ml 392 ml Intake Oral 0 ml 0 ml IV Total 1776 ml 1472 ml 1348 ml Tube Feeding 349 ml 302 ml 344 ml Other 60 ml 200 ml 200 ml Output Urine Total 1500 ml 950 ml 900 ml Stool Total 600 ml # Bowel Movements 1 1 2 . Laboratory Tests Test 12/14/16 12/15/16 02:20 03:50 White Blood Count 10.9 TH/MM3 8.8 TH/MM3 Red Blood Count 2.96 MIL/MM3 2.94 MIL/MM3 Hemoglobin 9.3 GM/DL 9.1 GM/DL Hematocrit 26.5 % 26.8 % Mean Corpuscular Volume 89.5 FL 91.1 FL Mean Corpuscular Hemoglobin 31.4 PG 31.1 PG Mean Corpuscular Hemoglobin 35.1 % 34.1 % Concent Red Cell Distribution Width 16.9 % 17.4 % Platelet Count 38 TH/MM3 54 TH/MM3 Mean Platelet Volume 13.0 FL 13.0 FL Neutrophils (%) (Auto) 57.1 % Lymphocytes (%) (Auto) 32.7 % Monocytes (%) (Auto) 9.8 % Eosinophils (%) (Auto) 0.2 % Basophils (%) (Auto) 0.2 % Neutrophils # (Auto) 6.3 TH/MM3 Lymphocytes # (Auto) 3.6 TH/MM3 Monocytes # (Auto) 1.1 TH/MM3 Eosinophils # (Auto) 0.0 TH/MM3 Basophils # (Auto) 0.0 TH/MM3 CBC Comment AUTO DIFF Differential Comment AUTO DIFF CONFIRMED Platelet Estimate LOW Platelet Morphology Comment ENLARGED Target Cells 1+ [place] Bodies PRESENT Acanthocytes OCC Keratocytes OCC Laboratory Tests Test 12/13/16 12/14/16 12/14/16 12/15/16 21:52 02:20 16:45 03:50 Potassium Level 2.6 MEQ/L 2.6 MEQ/L 3.2 MEQ/L 4.1 MEQ/L Calcium Level 7.2 MG/DL 7.4 MG/DL 7.4 MG/DL Magnesium Level 1.3 MG/DL 1.3 MG/DL 2.1 MG/DL 1.6 MG/DL Sodium Level 148 MEQ/L 154 MEQ/L Chloride Level 104 MEQ/L 117 MEQ/L Carbon Dioxide Level 35.3 MEQ/L 26.1 MEQ/L Anion Gap 9 MEQ/L 11 MEQ/L Blood Urea Nitrogen 54 MG/DL 44 MG/DL Creatinine 1.29 MG/DL 1.06 MG/DL Estimat Glomerular Filtration 43 ML/MIN 54 ML/MIN Rate Random Glucose 132 MG/DL 151 MG/DL Protein Corrected Calcium 8.2 MG/DL 8.1 MG/DL Phosphorus Level 2.1 MG/DL 4.2 MG/DL 3.1 MG/DL Total Protein 5.7 GM/DL 5.8 GM/DL Microbiology Date/Time Procedure Status Source Growth 12/13/16 18:40 Aerobic Blood Culture - Preliminary Resulted Blood Peripheral NO GROWTH IN 2 DAYS 12/13/16 18:40 Anaerobic Blood Culture - Preliminary Resulted Blood Peripheral NO GROWTH IN 2 DAYS 12/13/16 21:52 Aerobic Blood Culture - Preliminary Resulted Blood Line NO GROWTH IN 1 DAY 12/13/16 21:52 Anaerobic Blood Culture - Preliminary Resulted Blood Line NO GROWTH IN 1 DAY Imaging Last Impressio Last Impressions Lung Scan-VQ Nuclear Medicine 12/09/16 0000 Signed Impressions: Service Date/Time: Friday, December 09, 2016 14:54 - CONCLUSION: Low probability for pulmonary embolism. Chaparro Baig MD Chest X-Ray 12/09/16 0000 Signed Impressions: Service Date/Time: Friday, December 09, 2016 10:12 - CONCLUSION: 1. Endotracheal tube 8 mm above the kaitlynn and could be retracted 3 cm. 2. Slight worsening airspace disease greater in the right lung. Chaparro Baig MD Lumbar Puncture Fluoroscopy 12/08/16 Signed Impressions: Service Date/Time: December 16:10 - CONCLUSION: Uncomplicated fluoroscopically guided lumbar puncture with pressures as above. Dustin Hand MD Lower Extremity Ultrasound 12/08/16 Signed Impressions: Service Date/Time: December 14:46 - CONCLUSION: Normal examination. Jamel Stevenson MD Abdomen Ultrasound 12/08/16 Signed Impressions: Service Date/Time: December 14:15 - CONCLUSION: 1. No evidence of abdominal mass 2. Echogenic kidneys bilaterally compatible with medical renal disease. 3. Small bilateral effusions Dustin Hand MD Head CT 12/07/16 Signed Impressions: Service Date/Time: Wednesday, December 07, 2016 12:10 - CONCLUSION: Negative for acute process.. Gurwinder Hernandez MD FACR Brain MRI 12/07/16 Signed Impressions: Service Date/Time: Wednesday, December 07, 2016 15:03 - CONCLUSION: 1. Negative MRI of the brain. I do not see an etiology for the patient's metastatic disease. 2. I do not see obvious findings of a meningeal carcinomatosis either. Gurwinder Hernandez MD FACR Abdomen/Pelvis CT 12/07/16 Signed Impressions: Service Date/Time: Wednesday, December 07, 2016 16:45 - CONCLUSION: 1. Abnormal lung bases with coarse interstitial changes suggesting fibrosis. 2. Abnormal left kidney. Pyelonephritis cannot be excluded without contrast. 3. The gallbladder appears prominent but unremarkable. 4. I do not see any etiology for the patient's abdominal pain. Gurwinder Hernandez MD FACR Physical Exam GENERAL: Awake, following, has alopecia. SKIN: No rashes. Has dark reddish color all distal fingers and toes (baseline) HEAD: Atraumatic. Normocephalic. No temporal or scalp tenderness. Alopecia EYES: No petechia, no hemorrhage. No scleral icterus. No injection or drainage. ENT: No nasal discharge NECK: Trachea midline. Supple, nontender, no meningeal signs. CARDIOVASCULAR: HS audible. Port no evidence of infection RESPIRATORY: Breath sounds equal bilaterally. Coarse BS tommie GASTROINTESTINAL: Abdomen soft,non tender, non distended. MUSCULOSKELETAL: Extremities without clubbing, cyanosis, or edema. No joint effusion. ) NEUROLOGICAL: Awake and following Psych: could not be assessed. LINE: IV line sites, port with no evidence of infection : Noriega in place, urine looks clear Assessment & Plan Remarks IMPRESSION GNR sepsis - ID pending; not growing well, growing in aerobic bottle Septic Shock with Multiorgan dysfunction syndrome (MODS) - BP better, off pressors Meningitis: bacterial. - CSF C/S negative Aspiration pneumonia. Acute metabolic encephalopathy: Meningitis, Sepsis, SIADH Acute renal failure likely prerenal or sepsis Immune compromised, Small cell lung cancer with metastasis Anemia acute onset. Low grade temps Recommendations: Continue Cefepime Continue Oral Diflucan Continue Flagyl UA and C/S Follow C/S Follow temps Monitor progress Leena Fletcher MD Dec 15, 2016 11:35
--- NOTE | 2016-12-15 12:41 | HHI.PR ---
Subjective Remarks She is extubated , but now on Bipap . No fever. Good output. ABG adequate. Objective Vital Signs Date Time Temp Pulse Resp B/P Pulse Ox O2 Delivery O2 Flow Rate FiO2 12/15/16 11:50 97 40 12/15/16 10:00 73 12/15/16 08:54 100 35 12/15/16 08:00 35 12/15/16 08:00 97 12/15/16 08:00 97.0 97 22 134/79 100 12/15/16 06:00 71 12/15/16 04:23 96 12/15/16 04:05 100 35 12/15/16 04:00 116 12/15/16 04:00 35 12/15/16 04:00 98.9 116 24 119/79 100 12/15/16 02:00 74 12/15/16 01:06 99 40 12/15/16 01:00 172/105 12/15/16 00:00 40 12/15/16 00:00 99.9 74 20 158/100 100 12/15/16 00:00 74 12/14/16 23:50 100 40 12/14/16 22:09 100 40 12/14/16 22:00 71 12/14/16 20:00 70 12/14/16 20:00 99.9 72 21 125/77 98 12/14/16 20:00 40 12/14/16 19:43 100 40 12/14/16 18:00 74 12/14/16 16:00 72 12/14/16 16:00 97.9 72 20 145/63 95 12/14/16 16:00 40 12/14/16 15:31 100 40 12/14/16 14:00 74 I/O 12/14/16 12/14/16 12/14/16 12/15/16 12/15/16 12/15/16 07:00 15:00 23:00 07:00 15:00 23:00 Intake Total 1026 ml 2185 ml 1974 ml 1892 ml Output Total 850 ml 1500 ml 950 ml 1500 ml Balance 176 ml 685 ml 1024 ml 392 ml Intake Oral 0 ml 0 ml IV Total 694 ml 1776 ml 1472 ml 1348 ml Tube Feeding 272 ml 349 ml 302 ml 344 ml Other 60 ml 60 ml 200 ml 200 ml Output Urine Total 850 ml 1500 ml 950 ml 900 ml Stool Total 600 ml # Bowel Movements 1 1 1 2 Result Diagram: 12/15/1634912/15/16349 Objective Remarks This is an averagely built middle-aged lady who is alert on Bipap. HEENT: Head normocephalic. EYES: Pupils are reactive. Tongue is moist. Throat clear. Ears no inflammation. NECK: Supple. No bruits or thyroid enlargement. CHEST: Equal movements with scattered coarse wheezes throughout both lung butler with basal crackles. HEART: The heart sounds are regular S1-S2 with no murmur. No S3. ABDOMEN: Soft and protuberant without masses. No organomegaly. Bowel sounds are faint. EXTREMITIES: No lesions. Peripheral pulses are diminished. Reflexes not elicited. The patient is sedated. Skin was dry and cool. Assessment and Plan Assessment and Plan IMPRESSION 1. Ventilator dependent respiratory failure.resolved 2. Bilateral pneumonia and ARDS 3. Has severe anemia 4. Acute kidney injury, resolving. 5. Small-cell lung cancer status post chemotherapy. 6. Meningitis 7. History of asthma and chronic bronchitis 8. Hypertension Plan : 1. Bipap 10/5 , 35 %.and wean to N/C 5 L in am 2. Nebs qid , albuterol. 3. Antibiotics per ID. 4. PO diet 5. Chest X miki in am. 6. ABG in am 7. Decadron 10 mg IV bid Ronel Sparrow MD Dec 15, 2016 12:40
--- NOTE | 2016-12-15 16:09 | HHI.HCPN ---
Reason for visit a. To assist with evaluation and management of symptoms including: pain, dyspnea, anxiety b. To assist medical decision maker(s) with: better understanding of current medical conditions; weighing benefits/burdens of medical treatment options; making medical treatment decisions. . Subjective/Interval History Patient seen and assessed in room 515. Patient having increased lethargy today. She was extubated earlier this morning, but is now on BiPAP. = T-max overnight 99.9 = WBC 8.8, trending downward; hemoglobin 9.1, hematocrit 26.8, platelets 54 = Sodium: 154, potassium 4.1, chloride 117, carbon dioxide 26.1, calcium 7.4, phosphorus 3.1, magnesium 1.6 = BUN 44, creatinine 1.06, GFR 54 Chest x-ray on 12/14/16 stable with small left pleural effusion and bilateral lower lung zone airspace opacity. Follow-up chest x-ray today showing improved aeration of the lung bases with residual mild consolidation in the right lower lung zone. Patient remains on Cefepime, Fluconazole and Flagyl. Hematology/oncology, infectious disease and pulmonology continue to follow. . Family/friend interactions Patient was extubated earlier today, now on BiPAP. Contacted patient's (Vish) and siblings (José and Natalee) at [phone] with concerns the patient may require reintubation secondary to progressively worsening respiratory distress. Per spouse goals remain aggressive at this time, including cardiopulmonary resuscitation with intubation/mech vent if necessary. Patient's brother, José, confirmed the patient had verbalized aggressive goals in previous conversations. Later spoke with patient's brother (José) and SOLITARIO (Ilda) privately in conference room. Both José and Ana Maria have worked in the healthcare field and understand the patient is critically ill with an underlining terminal condition. They had many questions about disease progression how they would know it was time to transition to hospice focused care. Requesting family meeting tomorrow, if patient's is amenable.. Advance Directives Advance Directive Specifics Documented care wishes: None available at this time. . Objective Vital Signs Date Time Temp Pulse Resp B/P Pulse Ox O2 Delivery O2 Flow Rate FiO2 12/15/16 14:00 74 12/15/16 12:00 97.5 94 19 139/96 100 12/15/16 12:00 94 12/15/16 11:50 97 40 12/15/16 11:00 99 Nasal Cannula 3 32 12/15/16 10:00 73 12/15/16 08:54 100 35 12/15/16 08:00 35 12/15/16 08:00 97 12/15/16 08:00 97.0 97 22 134/79 100 12/15/16 06:00 71 12/15/16 04:23 96 12/15/16 04:05 100 35 12/15/16 04:00 116 12/15/16 04:00 35 12/15/16 04:00 98.9 116 24 119/79 100 12/15/16 02:00 74 12/15/16 01:06 99 40 12/15/16 01:00 172/105 12/15/16 00:00 40 12/15/16 00:00 99.9 74 20 158/100 100 12/15/16 00:00 74 12/14/16 23:50 100 40 12/14/16 22:09 100 40 12/14/16 22:00 71 12/14/16 20:00 70 12/14/16 20:00 99.9 72 21 125/77 98 12/14/16 20:00 40 12/14/16 19:43 100 40 12/14/16 18:00 74 12/14/16 16:00 72 12/14/16 16:00 97.9 72 20 145/63 95 12/14/16 16:00 40 12/14/16 15:31 100 40 Intake & Output 12/15/16 12/15/16 07:00 19:00 Intake Total 3866 ml Output Total 2450 ml Balance 1416 ml Intake Oral 0 ml IV Total 2820 ml Tube Feeding 646 ml Other 400 ml Output Urine Total 1850 ml Stool Total 600 ml # Bowel Movements 3 . Physical Exam CONSTITUTIONAL/GENERAL: This is an adequately nourished, middle aged female patient on BiPAP TUBES/LINES/DRAINS: Noriega, OG tube, ETT, Port, PIV, rectal tube SKIN: No jaundice, rashes, or lesions. No wounds seen anteriorly. Skin temperature WNL HEAD: Atraumatic. Normocephalic. EYES: Pupils equal and round and sluggish. No injection or drainage. No scleral icterus. ENT: Nose without bleeding or purulent drainage. BiPAP mask in place. NECK: Trachea midline. CARDIOVASCULAR: Regular rate and rhythm without murmurs, gallops, or rubs. No JVD. Peripheral pulses symmetric. RESPIRATORY/CHEST: On BiPAP s/p extubation this morning. Scattered coarse wheezing bilaterally. Tachypneic. GASTROINTESTINAL: Abdomen soft, non-tender, nondistended. No guarding. Bowel sounds present. GENITOURINARY: Without palpable bladder distension. Noriega catheter in place. MUSCULOSKELETAL: Extremities without clubbing or cyanosis. Trace edema. LYMPHATICS: No palpable cervical or supraclavicular adenopathy. NEUROLOGICAL: Increased lethargy today. PSYCHIATRIC: Unable to assess given patient's current clinical condition. . Diagnostic Tests Laboratory Laboratory Tests Test 12/12/16 12/13/16 12/13/16 12/14/16 18:35 06:30 21:52 02:20 Potassium Level 3.0 MEQ/L 3.4 MEQ/L 2.6 MEQ/L 2.6 MEQ/L (3.5-5.1) (3.5-5.1) (3.5-5.1) (3.5-5.1) White Blood Count 6.7 TH/MM3 10.9 TH/MM3 (4.0-11.0) (4.0-11.0) Red Blood Count 3.13 MIL/MM3 2.96 MIL/MM3 (4.00-5.30) (4.00-5.30) Hemoglobin 9.7 GM/DL 9.3 GM/DL (11.6-15.3) (11.6-15.3) Hematocrit 27.6 % 26.5 % (35.0-46.0) (35.0-46.0) Mean Corpuscular Volume 88.2 FL 89.5 FL (80.0-100.0) (80.0-100.0) Mean Corpuscular Hemoglobin 31.0 PG 31.4 PG (27.0-34.0) (27.0-34.0) Mean Corpuscular Hemoglobin 35.1 % 35.1 % Concent (32.0-36.0) (32.0-36.0) Red Cell Distribution Width 16.5 % 16.9 % (11.6-17.2) (11.6-17.2) Platelet Count 26 TH/MM3 38 TH/MM3 (150-450) (150-450) Mean Platelet Volume 12.1 FL 13.0 FL (7.0-11.0) (7.0-11.0) Neutrophils (%) (Auto) 65.7 % 57.1 % (16.0-70.0) (16.0-70.0) Lymphocytes (%) (Auto) 24.2 % 32.7 % (9.0-44.0) (9.0-44.0) Monocytes (%) (Auto) 9.7 % (0.0-8.0) 9.8 % (0.0-8.0) Eosinophils (%) (Auto) 0.1 % (0.0-4.0) 0.2 % (0.0-4.0) Basophils (%) (Auto) 0.3 % (0.0-2.0) 0.2 % (0.0-2.0) Neutrophils # (Auto) 4.4 TH/MM3 6.3 TH/MM3 (1.8-7.7) (1.8-7.7) Lymphocytes # (Auto) 1.6 TH/MM3 3.6 TH/MM3 (1.0-4.8) (1.0-4.8) Monocytes # (Auto) 0.7 TH/MM3 1.1 TH/MM3 (0-0.9) (0-0.9) Eosinophils # (Auto) 0.0 TH/MM3 0.0 TH/MM3 (0-0.4) (0-0.4) Basophils # (Auto) 0.0 TH/MM3 0.0 TH/MM3 (0-0.2) (0-0.2) CBC Comment AUTO DIFF AUTO DIFF Differential Comment AUTO DIFF AUTO DIFF CONFIRMED CONFIRMED Platelet Estimate LOW (NORMAL) LOW (NORMAL) Platelet Morphology Comment ENLARGED ENLARGED (NORMAL) (NORMAL) Target Cells 2+ (NORMAL) 1+ (NORMAL) Helmet Cells OCC (NORMAL) [place] Bodies PRESENT (NONE PRESENT (NONE SEEN) SEEN) Acanthocytes OCC (NORMAL) OCC (NORMAL) Sodium Level 144 MEQ/L 148 MEQ/L (136-145) (136-145) Chloride Level 100 MEQ/L 104 MEQ/L (98-107) (98-107) Carbon Dioxide Level 34.4 MEQ/L 35.3 MEQ/L (21.0-32.0) (21.0-32.0) Anion Gap 10 MEQ/L (5-15) 9 MEQ/L (5-15) Blood Urea Nitrogen 49 MG/DL (7-18) 54 MG/DL (7-18) Creatinine 1.59 MG/DL 1.29 MG/DL (0.50-1.00) (0.50-1.00) Estimat Glomerular Filtration 34 ML/MIN (>89) 43 ML/MIN (>89) Rate Random Glucose 144 MG/DL 132 MG/DL (74-106) (74-106) Calcium Level 7.4 MG/DL 7.2 MG/DL 7.4 MG/DL (8.5-10.1) (8.5-10.1) (8.5-10.1) Protein Corrected Calcium 8.1 MG/DL 8.2 MG/DL (8.5-10.1) (8.5-10.1) Phosphorus Level 2.1 MG/DL 2.1 MG/DL (2.5-4.9) (2.5-4.9) Magnesium Level 1.2 MG/DL 1.3 MG/DL 1.3 MG/DL (1.5-2.5) (1.5-2.5) (1.5-2.5) Total Protein 5.9 GM/DL 5.7 GM/DL (6.4-8.2) (6.4-8.2) Keratocytes OCC (NORMAL) Prothrombin Time 14.0 SEC (9.8-11.6) Prothromb Time International 1.3 RATIO Ratio Activated Partial 25.5 SEC Thromboplast Time (24.3-30.1) Fibrinogen 296 mg/dL (181-393) Test 12/14/16 12/14/16 12/14/16 12/14/16 04:35 11:40 16:45 21:50 Blood Gas Puncture Site RT RADIAL RT RADIAL Blood Gas Patient Temperature 98.6 98.6 Blood Gas HCO3 31 mmol/L 30 mmol/L (22-26) (22-26) Blood Gas Base Excess 8.0 mmol/L 6.9 mmol/L (-2-2) (-2-2) Blood Gas Oxygen Saturation 92 % (90-100) 94 % (90-100) Arterial Blood pH 7.55 7.51 (7.380-7.420) (7.380-7.420) Arterial Blood Partial 35 mmHg (38-42) 39 mmHg (38-42) Pressure CO2 Arterial Blood Partial 68 mmHg 84 mmHg Pressure O2 (61-120) (61-120) Arterial Blood Oxygen Content 11.3 Vol % 11.7 Vol % (12.0-20.0) (12.0-20.0) Arterial Blood 1.7 % (0-4) 1.7 % (0-4) Carboxyhemoglobin Arterial Blood Methemoglobin 1.0 % (0-2) 1.2 % (0-2) Blood Gas Hemoglobin 8.8 G/DL 8.8 G/DL (12.0-16.0) (12.0-16.0) Oxygen Delivery Device VENTILATOR VENTILATOR Blood Gas Ventilator Setting PRVC/AC CPAP+5/PS+5 Blood Gas Inspired Oxygen 40 % 40 % Potassium Level 3.2 MEQ/L (3.5-5.1) Phosphorus Level 4.2 MG/DL (2.5-4.9) Magnesium Level 2.1 MG/DL (1.5-2.5) Urine Color YELLOW (YELLW/STRAW) Urine Turbidity CLEAR (CLEAR) Urine pH 7.0 (5.0-8.5) Urine Specific [place] 1.015 (1.002-1.035) Urine Protein 30 mg/dL (NEG-TRACE) Urine Glucose (UA) TRACE mg/dL (NEG) Urine Ketones NEG mg/dL (NEG) Urine Occult Blood MOD (NEG) Urine Nitrite NEG (NEG) Urine Bilirubin NEG (NEG) Urine Urobilinogen LESS THAN 2.0 MG/DL (LESS THAN 2.0) Urine Leukocyte Esterase NEG (NEG) Urine RBC LESS THAN 1 /hpf (0-3) Urine WBC 2 /hpf (0-5) Urine Squamous Epithelial <1 /hpf (0-5) Cells Urine Mucus FEW /lpf (OCC) Microscopic Urinalysis Comment CATH-CULT NOT IND Test 12/15/16 12/15/16 03:50 09:47 White Blood Count 8.8 TH/MM3 (4.0-11.0) Red Blood Count 2.94 MIL/MM3 (4.00-5.30) Hemoglobin 9.1 GM/DL (11.6-15.3) Hematocrit 26.8 % (35.0-46.0) Mean Corpuscular Volume 91.1 FL (80.0-100.0) Mean Corpuscular Hemoglobin 31.1 PG (27.0-34.0) Mean Corpuscular Hemoglobin 34.1 % Concent (32.0-36.0) Red Cell Distribution Width 17.4 % (11.6-17.2) Platelet Count 54 TH/MM3 (150-450) Mean Platelet Volume 13.0 FL (7.0-11.0) Sodium Level 154 MEQ/L (136-145) Potassium Level 4.1 MEQ/L (3.5-5.1) Chloride Level 117 MEQ/L (98-107) Carbon Dioxide Level 26.1 MEQ/L (21.0-32.0) Anion Gap 11 MEQ/L (5-15) Blood Urea Nitrogen 44 MG/DL (7-18) Creatinine 1.06 MG/DL (0.50-1.00) Estimat Glomerular Filtration 54 ML/MIN (>89) Rate Random Glucose 151 MG/DL (74-106) Calcium Level 7.4 MG/DL (8.5-10.1) Protein Corrected Calcium 8.1 MG/DL (8.5-10.1) Phosphorus Level 3.1 MG/DL (2.5-4.9) Magnesium Level 1.6 MG/DL (1.5-2.5) Total Protein 5.8 GM/DL (6.4-8.2) Blood Gas Puncture Site RT RADIAL Blood Gas Patient Temperature 98.6 Blood Gas HCO3 24 mmol/L (22-26) Blood Gas Base Excess 1.0 mmol/L (-2-2) Blood Gas Oxygen Saturation 94 % (90-100) Arterial Blood pH 7.47 (7.380-7.420) Arterial Blood Partial 34 mmHg (38-42) Pressure CO2 Arterial Blood Partial 84 mmHg Pressure O2 (61-120) Arterial Blood Oxygen Content 15.5 Vol % (12.0-20.0) Arterial Blood 1.4 % (0-4) Carboxyhemoglobin Arterial Blood Methemoglobin 1.0 % (0-2) Blood Gas Hemoglobin 11.6 G/DL (12.0-16.0) Oxygen Delivery Device VENTILATOR Blood Gas Ventilator Setting CPAP5/PS 5 Blood Gas Inspired Oxygen 35 % . Result Diagram: 12/15/16 0350 12/15/16 0350 Microbiology Microbiology Date/Time Procedure Status Source Growth 12/13/16 18:40 Aerobic Blood Culture - Preliminary Resulted Blood Peripheral NO GROWTH IN 2 DAYS 12/13/16 18:40 Anaerobic Blood Culture - Preliminary Resulted Blood Peripheral NO GROWTH IN 2 DAYS 12/13/16 21:52 Aerobic Blood Culture - Preliminary Resulted Blood Line NO GROWTH IN 1 DAY 12/13/16 21:52 Anaerobic Blood Culture - Preliminary Resulted Blood Line NO GROWTH IN 1 DAY . Imaging Last 72 hours Impressions Chest X-Ray 12/15/16 0000 Signed Impressions: Service Date/Time: December 08:00 - CONCLUSION: Improved aeration at the lung bases with residual mild consolidation in the right lower lung zone. Bakari Charles MD Chest X-Ray 12/14/16 0000 Signed Impressions: Service Date/Time: Wednesday, December 14, 2016 10:35 - CONCLUSION: 1. Stable chest x-ray with small left pleural effusion and bilateral lower lung zone airspace opacity. 2. Endotracheal tube in stable position with tip measuring 14 mm from the kaitlynn. Bakari Charles MD Chest X-Ray 12/13/16 0000 Signed Impressions: Service Date/Time: Tuesday, December 13, 2016 07:26 - CONCLUSION: Significant interval improvement of the bilateral airspace consolidation. The bilateral consolidation is currently mild and lower lung zone predominant. Endotracheal tube tip remains 11 mm from the kaitlynn. Bakari Charles MD . Procedures 12/07/16: Lumbar puncture 12/08/16; Intubation 12/15/16: extubation . Assessment and Plan Disease Oriented Problem List: (1) Hyponatremia (2) Hypokalemia (3) SIADH (syndrome of inappropriate ADH production) (4) Lung cancer, primary, with metastasis from lung to other site (5) Acute renal failure (6) Thrombocytopenia (7) Sepsis (8) Elevated LFTs (9) SCLC (small cell lung carcinoma) (10) Altered mental status (11) Tobacco abuse (12) Asthma (13) HTN (hypertension) (14) Bacteremia Comment: Growing GNB from BC from 12/07 11/10 - no ID yet, sent to [place] for ID. Followup Blood culture negative to date. (15) Chronic obstructive pulmonary disease (16) Anemia Symptom Scale: (1) Anxiety 0-10 Scale: Unable to quantify Comment: On Precedex, attempting to wean. . (2) Dyspnea 0-10 Scale: Unable to quantify Comment: Patient was extubated this morning (12/15/16). Having progressively worsening respiratory distress, now on BiPAP. Patient may require reintubation if respiratory status continues to do to deteriorate. Spoke with patient's spouse who verbalized goal remain aggressive, including reintubation if necessary. Chest x-ray on 12/14/16 stable with small left pleural effusion and bilateral lower lung zone airspace opacity. Follow-up chest x-ray today 9 ) showing improved aeration of the lung bases with residual mild consolidation in the right lower lung zone. . (3) Pain 0-10 Scale: Unable to quantify Comment: Morphine 1 mg IV q4 hours PRN for pain, administered x 1 in the previous 24 hour time span. Pertinent Non-Medical Issues Psychosocial: Patient was born and raised in [place], [place]. She is , currently living in [place]. She has no children. The patient has a college degree but is unemployed at this time. Patient has 2 siblings, Natalee and José, who live locally. Spiritual: [employer] Legal: Per [place] statutes, in the absence of written advanced directives healthcare proxy decision making would fall to the patient's spouse, Bakari Galaviz. Ethical issues impacting care: None known at this time . Important Contacts Bakari Galaviz, spouse: [phone] Natalee Aponte, sister: [phone] José Cobianpablo: [phone] . Prognosis Patient was diagnosed with extensive stage small cell lung cancer for which she was receiving chemotherapy consisting of cisplatin and etoposide. She has metastatic disease to the liver. A liver biopsy was completed on 10/14/16- results were consistent with small cell lung cancer. Patient has received 2 rounds of chemotherapy. 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 Patient has become progressively more weak per family who verbalized concern she is unable to tolerate further treatment. Overall prognosis is poor. . Code Status: Full Code Plan * FULL CODE * Decision making: Patient is currently intubated and does not have capacity to participate in health care decision making. It is unclear at this time if the patient will regain capacity. Per [place] statutes in the absence of written advanced directives healthcare proxy decision-making falls to the patient's , Bakari Galaviz. * Goals: Goals remain aggressive. Plan to continue chemotherapy when patient is discharged and regains her strength. * Spoke with patient's brother (José) and SOLITARIO (Ilda) in conference room this afternoon. Both José and Ana Maria have worked in the healthcare field and understand the patient is critically ill with an underlining terminal condition. They had many questions about disease progression how they would know it was time to transition to hospice focused care. Requesting family meeting tomorrow, if patient's is amenable. Tentative family meeting tomorrow to further clarify medical treatment goals - specifically the process of cardiopulmonary resuscitation. * Symptom managementpain: Possible causes of pain may include disease progression, comorbid conditions, invasiveness lines, immobility, bedbound status etc. On Precedex infusion. Morphine 1 mg IV is available q4 hours PRN for pain, administered x 1 over the previous 24 hours. Palliative care will monitor PRN requirements and make recommendations as indicated. * Symptom managementdyspnea: Patient was extubated this morning (12/15/16). Having progressively worsening respiratory distress, now on BiPAP. Patient may require reintubation if respiratory status continues to do to deteriorate. Spoke with patient's spouse who verbalized goal remain aggressive, including reintubation if necessary. Chest x-ray on 12/14/16 stable with small left pleural effusion and bilateral lower lung zone airspace opacity. Follow-up chest x-ray today 9 12/15/16) showing improved aeration of the lung bases with residual mild consolidation in the right lower lung zone. * Symptom managementanxiety: Patient is lethargic today. Having intermittent anxiety likely secondary to respiratory distress/BiPAP. Other potential causes for anxiety secondary to cancer diagnosis, invasiveness lines, immobility etc. Patient remains on Precedex infusion, attempting to wean. * Palliative care will continue to follow this patient throughout her hospitalization to establish trust, assist with symptom management and clarification of medical treatment goals. . Attestation To help prompt me to consider important information that might be impacting today's encounter and assessment, information from prior notes written by myself or my colleagues may have been "brought forward" into today's note. My signature on this note, however, is an attestation that I personally performed the exam, history, and/or decision-making noted today, and, unless otherwise indicated, the interactions with patient, family, and staff as well as the review of records all occurred today. I also attest that the listed assessment and stated plan reflect my best clinical judgment today based on the combination of historical information, prior notes, and today's exam/ interactions. When time spent is documented, it refers only to time spent today by the signer, or if indicated, combined time spent today by collaborating physician/nurse practitioner. . Jordana Jc Dec 15, 2016 16:09
--- NOTE | 2016-12-15 23:20 | PD.ONC.PN ---
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 at bedside answered questions Objective Data Date Time Temp Pulse Resp B/P Pulse Ox O2 Delivery O2 Flow Rate FiO2 12/15/16 22:00 85 12/15/16 20:54 100 40 12/15/16 20:00 98.8 97 20 151/91 100 12/15/16 20:00 100 12/15/16 19:00 100 Bi-Pap 40 12/15/16 18:45 99 Nasal Cannula 4.00 12/15/16 18:00 84 12/15/16 16:00 84 12/15/16 16:00 98.1 84 22 136/87 99 12/15/16 15:43 40 12/15/16 14:00 74 12/15/16 12:00 100 Bi-Pap 40 12/15/16 12:00 97.5 94 19 139/96 100 12/15/16 12:00 94 12/15/16 11:50 97 40 12/15/16 11:00 99 Nasal Cannula 3 32 12/15/16 10:00 73 12/15/16 08:54 100 35 12/15/16 08:00 35 12/15/16 08:00 97 12/15/16 08:00 97.0 97 22 134/79 100 12/15/16 06:00 71 12/15/16 04:23 96 12/15/16 04:05 100 35 12/15/16 04:00 116 12/15/16 04:00 35 12/15/16 04:00 98.9 116 24 119/79 100 12/15/16 02:00 74 12/15/16 01:06 99 40 12/15/16 01:00 172/105 12/15/16 00:00 40 12/15/16 00:00 99.9 74 20 158/100 100 12/15/16 00:00 74 12/14/16 23:50 100 40 12/15/16 12/15/16 12/15/16 07:00 15:00 23:00 Intake Total 1892 ml 1115 ml 722 ml Output Total 1500 ml 1700 ml 700 ml Balance 392 ml -585 ml 22 ml Result Diagram: 12/15/16 0350 12/15/16 1710 Laboratory Results Laboratory Tests Test 12/15/16 12/15/16 12/15/16 03:50 09:47 17:10 White Blood Count 8.8 TH/MM3 Red Blood Count 2.94 MIL/MM3 Hemoglobin 9.1 GM/DL Hematocrit 26.8 % Mean Corpuscular Volume 91.1 FL Mean Corpuscular Hemoglobin 31.1 PG Mean Corpuscular Hemoglobin 34.1 % Concent Red Cell Distribution Width 17.4 % Platelet Count 54 TH/MM3 Mean Platelet Volume 13.0 FL Sodium Level 154 MEQ/L Potassium Level 4.1 MEQ/L 3.8 MEQ/L Chloride Level 117 MEQ/L Carbon Dioxide Level 26.1 MEQ/L Anion Gap 11 MEQ/L Blood Urea Nitrogen 44 MG/DL Creatinine 1.06 MG/DL Estimat Glomerular Filtration 54 ML/MIN Rate Random Glucose 151 MG/DL Calcium Level 7.4 MG/DL Protein Corrected Calcium 8.1 MG/DL Phosphorus Level 3.1 MG/DL Magnesium Level 1.6 MG/DL Total Protein 5.8 GM/DL Blood Gas Puncture Site RT RADIAL Blood Gas Patient Temperature 98.6 Blood Gas HCO3 24 mmol/L Blood Gas Base Excess 1.0 mmol/L Blood Gas Oxygen Saturation 94 % Arterial Blood pH 7.47 Arterial Blood Partial 34 mmHg Pressure CO2 Arterial Blood Partial 84 mmHg Pressure O2 Arterial Blood Oxygen Content 15.5 Vol % Arterial Blood 1.4 % Carboxyhemoglobin Arterial Blood Methemoglobin 1.0 % Blood Gas Hemoglobin 11.6 G/DL Oxygen Delivery Device VENTILATOR Blood Gas Ventilator Setting CPAP5/PS 5 Blood Gas Inspired Oxygen 35 % Culture Results Microbiology Date/Time Procedure Status Source Growth 12/13/16 18:40 Aerobic Blood Culture - Preliminary Resulted Blood Peripheral NO GROWTH IN 2 DAYS 12/13/16 18:40 Anaerobic Blood Culture - Preliminary Resulted Blood Peripheral NO GROWTH IN 2 DAYS 12/13/16 21:52 Aerobic Blood Culture - Preliminary Resulted Blood Line NO GROWTH IN 1 DAY 12/13/16 21:52 Anaerobic Blood Culture - Preliminary Resulted Blood Line NO GROWTH IN 1 DAY Imaging Studies Last 24 hours Impressions Chest X-Ray 12/15/16 0000 Signed Impressions: Service Date/Time: December 08:00 - CONCLUSION: Improved aeration at the lung bases with residual mild consolidation in the right lower lung zone. Bakari Charles MD Administered Medications Medications (Trade) Dose Ordered Sig/Ermias Route PRN Reason Start Time Stop Time Status Last Admin Dose Admin Pantoprazole Sodium (Protonix Inj) 40 mg DAILY IV 12/07/16 16:15 12/15/16 08:18 Chlorhexidine Gluconate (Chlorhexidine 2% Cloth) Taper DAILY@04 TOP 12/08/16 04:00 12/04/17 03:59 12/14/16 02:31 Insulin Human Regular (NovoLIN R SUPPLEMENTAL SCALE) 1 Q6H SQ 12/07/16 18:00 12/13/16 17:34 Fentanyl Citrate (fentaNYL INJ) 25 mcg Q2H PRN IV PUSH PAIN 1-4 12/07/16 21:45 12/15/16 08:19 Fentanyl Citrate 50 mcg 50 mcg Q1H PRN IV PUSH PAIN 5-10 12/07/16 21:45 12/15/16 20:57 Phenylephrine HCl 40 mg/Dextrose 500 ml @ 0 mls/hr TITRATE IV 12/08/16 02:00 12/09/16 05:11 Potassium Chloride 100 ml @ 50 mls/hr Q2H PRN IV For Potassium 2.8 - 3.2 mEq/L 12/08/16 01:00 12/14/16 20:11 Potassium Chloride 100 ml @ 25 mls/hr UNSCH PRN IV For Potassium 3.3 - 3.5 mEq/L 12/08/16 01:00 12/10/16 10:50 Magnesium Sulfate 2 gm/Sodium Chloride 100 ml @ 50 mls/hr UNSCH PRN IV For Magnesium 1.2 - 1.6 mg/dL 12/08/16 01:00 12/14/16 02:53 Potassium Phosphate/Sodium Chloride (Potassium Phosphate Inj/NS 250 ml Inj) 260 ml @ 42 mls/hr UNSCH PRN IV SEE LABEL COMMENTS 12/08/16 01:00 12/12/16 05:51 Acetaminophen (Tylenol 650 Mg/ 20 ml Liq) 650 mg Q4H PRN TUBE TEMP >101 12/08/16 03:30 12/14/16 01:12 Chlorhexidine Gluconate 15 ml 15 ml BID@08,20 MT 12/08/16 08:00 12/15/16 08:19 Levetriacetam 1000 mg/Sodium Chloride 110 ml @ 420 mls/hr Q12H IV 12/09/16 03:00 12/15/16 15:16 Propofol (Diprivan 1000 Mg/100ml Inj) 100 ml @ 0 mls/hr TITRATE IV 12/09/16 00:45 12/12/16 10:16 Fluconazole (Diflucan) 100 mg DAILY PO 12/09/16 11:00 12/15/16 08:28 Metoclopramide HCl (Reglan Inj) 5 mg Q8H PRN IV PUSH high residuals 12/10/16 07:15 12/11/16 20:44 Metoprolol Tartrate (Lopressor) 25 mg Q12HR PO 12/11/16 09:00 12/15/16 20:56 Morphine Sulfate (Morphine Inj) 1 mg Q4H PRN IV PUSH pain 12/11/16 11:15 12/15/16 00:47 Diphenhydramine HCl 25 mg 25 mg Q4H PRN PO BLOOD PRODUCT ADMINISTRATION 12/11/16 20:15 12/11/16 20:21 Dexmedetomidine HCl 50 ml @ 0 mls/hr TITRATE IV 12/12/16 08:30 12/15/16 16:04 Cefepime HCl/ Sodium Chloride (Maxipime Inj/NS Inj) 100 ml @ 200 mls/hr Q8H IV 12/12/16 16:00 12/15/16 15:16 Dexamethasone Sodium Phosphate (Decadron Inj) 10 mg BID IV PUSH 12/13/16 09:00 12/15/16 20:55 Sennosides (Senna Liq) 8.8 mg DAILY PO 12/13/16 09:00 12/13/16 09:07 Docusate Sodium (Colace Liq) 100 mg Q12HR PO 12/13/16 09:00 12/14/16 20:10 Hydralazine HCl (Apresoline Inj) 10 mg Q4H PRN IV SEE LABEL COMMENTS 12/15/16 02:15 12/15/16 02:18 Objective Remarks GENERAL: on bipap, awake SKIN: Warm and dry. NECK: Supple, trachea midline. No JVD or lymphadenopathy. LYMPHATIC: No adenopathy. CARDIOVASCULAR: Regular rate and rhythm without murmurs. RESPIRATORY: faint wheezes GASTROINTESTINAL: Abdomen soft, non-tender, nondistended. EXTREMITIES: No cyanosis, or edema. Assessment/Plan Problem List: (1) Sepsis Status: Acute Plan: --likely bacterial meningitis -- CSF gram stain shows no growth --on multiple abx as above, per ID. --U/A neg --CXR: small left pleural effusion. last Neulasta shot was given on 11/16. (2) SCLC (small cell lung carcinoma) Status: Acute Plan: --s/p Carboplatin/SEARCH LEAD 16, last chemo given in early November (3) Normocytic anemia Status: Acute Plan: --transfuse as needed --monitor for bleeding (4) Thrombocytopenia Status: Acute Plan: -- Likely consumptive due to acute illness. -- Fibrinogen OK. -- Transfuse for bleeding or platelets less than 20K. (5) Acute renal failure Status: Acute Plan: --on IVF (6) Elevated LFTs Status: Acute Plan: --Abnormal LFTs likely secondary to acute illness. ++does have metastatic disease to the liver. Assessment 51y/o admitted with hypotension, lethargy, leukocytosis, now critically ill in IMC, intubated and on pressor support h/o metastatic SCLC Plan clinical improvement today Thrombocytopenia due to sepsis/acute illnes/consumption and chemotherapy effect. Platelet count coming up. Check daily fibrinogen and give cryo to keep fibrinogen >150. ADAMTS 13 activity normal, HIT negative Anemia--Hb stable --dark stool. stool heme-occult PENDING Leukocytosis- resolved. Replace calcium Small cell lung cancer--further treatment on hold for now discussed with family d/w Dr. Villegas Problem Qualifiers (1) Sepsis: Qualified Code: A41.9 - Sepsis, due to unspecified organism Aakash Gama MD Dec 15, 2016 23:20
[2016-12-16] VITALS (17 sets, daily range): BP systolic 124–150; BP diastolic 76–93; PULSE 84–114; RESP 18–30; TEMP 97.9–98.9; O2SAT 95–100
[2016-12-16] MEDS: RESP: ALBUTEROL 2.5 MG/IPRATROPIUM 0.5 MG NEB (SCH) NEB ×6 (03:36→23:15)
[2016-12-16] MEDS: CHLORHEXIDINE GLUCONATE 2 % 1 PACK (2 CLOTHS) TOP SCH (04:00)
[2016-12-16 04:23] LABS: HEMATOCRIT 24.9 % (35.0-46.0); MEAN CELL VOLUME 91.8 FL (80.0-100.0); MEAN CORPUSCULAR HEMOGLOBIN 30.7 PG (27.0-34.0); MEAN CORPUSCULAR HGB CONC 33.4 % (32.0-36.0); PLATELET COUNT 62 TH/MM3 (150-450); RED BLOOD COUNT 2.71 MIL/MM3 (4.00-5.30); WHITE BLOOD COUNT 13.1 TH/MM3 (4.0-11.0)
[2016-12-16 04:27] LABS: REVIEW FLAG FINAL
[2016-12-16 04:59] LABS: BICARBONATE 26.1 MEQ/L (21.0-32.0); MAGNESIUM 1.3 MG/DL (1.5-2.5); POTASSIUM 3.7 MEQ/L (3.5-5.1)
[2016-12-16] MEDS: DEXMEDETOMIDINE INJ 50 ML IV SCH ×3 (04:59→17:41)
[2016-12-16] MEDS: levETIRAcetam INJ 1,000 MG in SODIUM CHLORIDE 0.9% INJ 100 ML IV SCH ×2 (04:59→15:14)
[2016-12-16] MEDS: INSULIN NovoLIN REGULAR SUPPLEMENTAL SCALE SQ SCH ×4 (05:54→23:45)
[2016-12-16] MEDS: CEFEPIME INJ 2,000 MG in SODIUM CHLORIDE 0.9% INJ 100 ML IV SCH ×3 (07:59→23:44)
[2016-12-16] MEDS: CHLORHEXIDINE 0.12% (ORAL KIT) 15 ML CUP MT SCH ×2 (08:00→19:32)
[2016-12-16] MEDS: SENNOSIDES SYRUP 8.8 MG/5 ML CUP PO SCH (08:00)
[2016-12-16] MEDS: FLUCONAZOLE 100 MG TAB PO SCH (08:00)
[2016-12-16] MEDS: METOPROLOL TARTRATE 25 MG TAB PO SCH ×2 (08:00→20:37)
[2016-12-16] MEDS: DOCUSATE SODIUM 100 MG/10 ML UDC PO SCH ×2 (08:00→20:35)
[2016-12-16] MEDS: PANTOPRAZOLE SODIUM 40 MG VIAL IV SCH (08:00)
[2016-12-16] MEDS: DEXAMETHASONE SOD PHOS 20 MG/5 ML VIAL IV PUSH SCH ×2 (08:00→20:37)
--- NOTE | 2016-12-16 09:32 | HHI.CCPN ---
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 She presented to [facility] ED with altered mental status, lethargy and fever for the past couple days. Her last chemotherapy was two days ago however when the patient went to receive another session yesterday it was not given due to her condition and instead she was given IV hydration. On arrival to the ED, the patient was tachycardic with a heart rate of 110-120s and initially she was hypotensive with a systolic blood pressure 80s-90s. She also was found to have a temperature of 100.7 rectally. In the ED she was given 2 liter boluses of normal saline with improvement of her blood pressure to 141/ 86. Her laboratory data showed mild acute kidney injury with a creatinine level of 1.31 and hyponatremia with a sodium level of 131. In addition, the patient had significant leukocytosis with a WBC of 71.4 associated with bandemia 28. Also, her hemoglobin was 6.8 with hematocrit of 20.2. Two units of packed RBCs have been ordered by the ED physician. The patient received a Neulasta injection post her chemotherapy. Due to her altered mental status, a CT scan of the brain was obtained which was negative for acute process. The patient also had MRI of the brain which was negative for any metastatic disease. A chest x-ray in the ED showed Infusaport in good position and mild interstitial prominence. The patient received Vancomycin and cefepime in the ED , and a CT scan of the abdomen and pelvis has been ordered. Overall, history is limited as the patient is a poor historian. However, she is not complaining of any pain. 3/ Last night patient became tachycardic, hypoxic and worsening mental status she was subsequently intubated and placed on mechanical ventilation. She received additional 2L NS for hypotension and started on Neosyn 50 mics. s/p transfusion 2u PRBC yesterday for Hgb 6.8 her Hgb 11.2 this morning. 12/09 Patient remains sedated with Diprivan and intubated. On Neosyn 40 mics and bicarb drip. T:99.9 last night WBC trending down 24 today from 55. s/p LP showed clear CSF, WBC 978, TP:179 , nl glc 12/10 Patient is sedated with Diprivan and intubated. Off Neosyn. Afebrile. V/Q scaln yesterday low prob. BC from 12/07 GNR. 12/11 No acute events overnight. Sedated with Diprivan and intubated. Afebrile. WBC trending down. PLT 18 this morning. Tolerated CPAP x 4 hrs yesterday 12/12 Patient remains sedated and intubated. On ACV RR20, TV 500, PEEP:5, FIO2 55% . Afebrile. s/p transfusion 1u PLT and FFP yesterday per heme. 12/13 No acute events overnight. On Precedex infusion . CXR overall better today. Off Bumex drip. Afebrile. 12/14: Remains intubated, awake. UO adequate off Bumex drip. CXR stable to improving. Plt count 38. 12/15: Remains intubated, wide awake and following commands. CXR today improved. Bilateral wheezing 12/16 Patient is on Precedex drip 0.5 extubated yesterday and now on BIPAP 07/13 with 30% FIO2. Afebrile. Objective Vital Signs Date Time Temp Pulse Resp B/P Pulse Ox O2 Delivery O2 Flow Rate FiO2 12/16/16 08:00 98.5 88 22 142/86 100 12/16/16 07:52 35 12/16/16 07:00 Bi-Pap 12/15/16 18:45 4.00 Intake and Output 12/15/16 12/15/16 12/16/16 08:00 16:00 00:00 Intake Total 1892 ml 1115 ml 722 ml Output Total 1500 ml 1700 ml 700 ml Balance 392 ml -585 ml 22 ml Result Diagram: 12/16/16 0400 12/16/16 0400 Other Results Laboratory Tests Test 12/15/16 12/15/16 12/16/16 09:47 17:10 04:00 Blood Gas Puncture Site RT RADIAL Blood Gas Patient Temperature 98.6 Blood Gas HCO3 24 mmol/L Blood Gas Base Excess 1.0 mmol/L Blood Gas Oxygen Saturation 94 % Arterial Blood pH 7.47 Arterial Blood Partial 34 mmHg Pressure CO2 Arterial Blood Partial 84 mmHg Pressure O2 Arterial Blood Oxygen Content 15.5 Vol % Arterial Blood 1.4 % Carboxyhemoglobin Arterial Blood Methemoglobin 1.0 % Blood Gas Hemoglobin 11.6 G/DL Oxygen Delivery Device VENTILATOR Blood Gas Ventilator Setting CPAP5/PS 5 Blood Gas Inspired Oxygen 35 % Potassium Level 3.8 MEQ/L 3.7 MEQ/L White Blood Count 13.1 TH/MM3 Red Blood Count 2.71 MIL/MM3 Hemoglobin 8.3 GM/DL Hematocrit 24.9 % Mean Corpuscular Volume 91.8 FL Mean Corpuscular Hemoglobin 30.7 PG Mean Corpuscular Hemoglobin 33.4 % Concent Red Cell Distribution Width 17.0 % Platelet Count 62 TH/MM3 Mean Platelet Volume 13.1 FL Fibrinogen 241 mg/dL Sodium Level 151 MEQ/L Chloride Level 115 MEQ/L Carbon Dioxide Level 26.1 MEQ/L Anion Gap 10 MEQ/L Blood Urea Nitrogen 39 MG/DL Creatinine 0.92 MG/DL Estimat Glomerular Filtration 64 ML/MIN Rate Random Glucose 101 MG/DL Calcium Level 8.3 MG/DL Phosphorus Level 3.3 MG/DL Magnesium Level 1.3 MG/DL Imaging Last Impressions Chest X-Ray 12/15/16 0000 Signed Impressions: Service Date/Time: December 08:00 - CONCLUSION: Improved aeration at the lung bases with residual mild consolidation in the right lower lung zone. Bakari Charles MD Lung Scan- Nuclear Medicine 12/09/16 0000 Signed Impressions: Service Date/Time: Friday, December 09, 2016 14:54 - CONCLUSION: Low probability for pulmonary embolism. Chaparro Baig MD Lumbar Puncture Fluoroscopy 12/08/16 0000 Signed Impressions: Service Date/Time: December 16:10 - CONCLUSION: Uncomplicated fluoroscopically guided lumbar puncture with pressures as above. Dustin Hand MD Lower Extremity Ultrasound 12/08/16 0000 Signed Impressions: Service Date/Time: December 14:46 - CONCLUSION: Normal examination. Jamel Stevenson MD Abdomen Ultrasound 12/08/16 0000 Signed Impressions: Service Date/Time: December 14:15 - CONCLUSION: 1. No evidence of abdominal mass 2. Echogenic kidneys bilaterally compatible with medical renal disease. 3. Small bilateral effusions Dustin Hand MD Head CT 12/07/16 0000 Signed Impressions: Service Date/Time: Wednesday, December 07, 2016 12:10 - CONCLUSION: Negative for acute process.. Gurwinder Hernandez MD FACR Brain MRI 12/07/16 0000 Signed Impressions: Service Date/Time: Wednesday, December 07, 2016 15:03 - CONCLUSION: 1. Negative MRI of the brain. I do not see an etiology for the patient's metastatic disease. 2. I do not see obvious findings of a meningeal carcinomatosis either. Gurwinder Hernandez MD FACR Abdomen/Pelvis CT 12/07/16 0000 Signed Impressions: Service Date/Time: Wednesday, December 07, 2016 16:45 - CONCLUSION: 1. Abnormal lung bases with coarse interstitial changes suggesting fibrosis. 2. Abnormal left kidney. Pyelonephritis cannot be excluded without contrast. 3. The gallbladder appears prominent but unremarkable. 4. I do not see any etiology for the patient's abdominal pain. Gurwinder Hernandez MD FACR Objective Remarks GENERAL: Patient is 51 yo critically ill appearing on BIPAP SKIN: Warm and dry. HEAD: Normocephalic. EYES: No scleral icterus. No injection or drainage. NECK: Supple, trachea midline. No JVD or lymphadenopathy. CARDIOVASCULAR: RRR without murmurs, gallops, or rubs. RESPIRATORY: Breath sounds equal bilaterally. Bilateral expiratory wheezing GASTROINTESTINAL: Abdomen soft, mild tenderness on palpation. MUSCULOSKELETAL: No cyanosis, or edema. Neuro: Awake alert. Follows commands all 4 extremities A/P Assessment and Plan ASSESSMENT: Acute respiratory failure- Extubated 12/15 Possible aspiration pneumonia Bacterial Meningitis Severe sepsis Anemia, thrombocytopenia Acute kidney injury- resolved Hypernatremia Encephalopathy- improving Small cell lung cancer status post chemotherapy Chronic hyponatremia. 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 Hyperglycemia Elevated AST Hypertension. GERD. History of bronchial asthma. PLAN: Neuro: Wean off Precedex infusion. Monitor neuro status closely CT brain and MRI brain negative for acute process EEG showed diffuse encephalopathy- on Keppra IV Q12, Decadron 10mg Q6 s/p LP 12/08 - clear CSF, WBC 978, TP:179, nl Glc, 96 Neutrophils. Continue with abx, taper steroids- taper Decadron 5mg BID Neuro: Dr. Howe Pulm: Continue with oxygen and maintain sats above 90%.Extubated 12/15 Bronchodilators, IS, NIPPV PRN Pulm is following- Dr. Sparrow. V/Q scan- Low prob PE CV: On Lopressor 25mg Q12. monitor HR and BP and maintain MAP > 65 mmHg. Lactic acid: 1.8 Echo showed diffuse hypokinesis EF 25-30% : Monitor renal function, Is and Os and electrolyte replacement per protocol. Diurese with Bumex 1mg x1 CT abd/pelvis : Pyelonephritis could not be excluded . US abdomen: No masses, medical renal disease GI: On Protonix 40 mg IV daily for GI prophylaxis. On clear liquid diet Colace/Senna for bowel regimen. ID: Continue with abx per ID (Cefepime, Flagyl, Diflucan) Strep pneumonia and Legionella urinary antigen negative. s/p LP 12/07-studies consistent with bacterial meningitis, follow up on LP results- NGTD BC from 12/07: GNR x2 bottles. follow up on BC from 12/10 .WBC trending down Heme: Monitor CBC, coags, s/p transfusion 2 units of PRBC on arrival. Heme-Onc is following- Dr. Gama. Follow up on Cytology of CSF ( pending ) s/p transfusion 1u PLT and 2u FFP 12/11. Further transfusion per heme. PLT 62 this morning. H/H stable. Endo: SSI with Accu-Cheks for glycemic control. GI prophylaxis with Protonix 40 mg daily and DVT prophylaxis with SCDs. Not on chemical anticoagulation prophylaxis due to anemia requiring blood transfusions and thrombocytopenia 12/08 Doppler US LE negative for DVT 12/09 V/Q scan low prob PE Lines: Right Infuse A port Palliative care is following Level 3 . Ryan Nunn MD Dec 16, 2016 09:32
[2016-12-16] MEDS: MAGNESIUM SULFATE INJ 2 GM in SODIUM CHLORIDE 0.9% INJ 96 ML IV PRN (10:26)
--- NOTE | 2016-12-16 11:19 | PD.ONC.PN ---
Subjective Subjective Remarks Afebrile overnight. Extubated yesterday, tolerated 6L O2 this AM. She is awake and alert. Objective Data Date Time Temp Pulse Resp B/P Pulse Ox O2 Delivery O2 Flow Rate FiO2 12/16/16 10:00 99 12/16/16 08:00 98.5 88 22 142/86 100 12/16/16 08:00 88 12/16/16 07:52 99 35 12/16/16 07:00 100 Bi-Pap 30 12/16/16 04:00 108 25 136/86 99 12/16/16 04:00 90 12/16/16 03:35 100 30 12/16/16 02:00 84 12/16/16 00:00 88 12/16/16 00:00 98.9 85 18 150/84 100 12/15/16 23:13 100 35 12/15/16 22:00 85 12/15/16 20:54 100 40 12/15/16 20:00 98.8 97 20 151/91 100 12/15/16 20:00 100 12/15/16 19:00 100 Bi-Pap 40 12/15/16 18:45 99 Nasal Cannula 4.00 12/15/16 18:00 84 12/15/16 16:00 84 12/15/16 16:00 98.1 84 22 136/87 99 12/15/16 15:43 40 12/15/16 14:00 74 12/15/16 12:00 100 Bi-Pap 40 12/15/16 12:00 97.5 94 19 139/96 100 12/15/16 12:00 94 12/15/16 11:50 97 40 12/16/16 12/16/16 12/16/16 07:00 15:00 23:00 Intake Total 600 ml Output Total 651 ml Balance -51 ml Result Diagram: 12/16/16 0400 12/16/16 040 Laboratory Results Laboratory Tests Test 12/15/16 12/16/16 17:10 04:00 Potassium Level 3.8 MEQ/L 3.7 MEQ/L White Blood Count 13.1 TH/MM3 Red Blood Count 2.71 MIL/MM3 Hemoglobin 8.3 GM/DL Hematocrit 24.9 % Mean Corpuscular Volume 91.8 FL Mean Corpuscular Hemoglobin 30.7 PG Mean Corpuscular Hemoglobin 33.4 % Concent Red Cell Distribution Width 17.0 % Platelet Count 62 TH/MM3 Mean Platelet Volume 13.1 FL Fibrinogen 241 mg/dL Sodium Level 151 MEQ/L Chloride Level 115 MEQ/L Carbon Dioxide Level 26.1 MEQ/L Anion Gap 10 MEQ/L Blood Urea Nitrogen 39 MG/DL Creatinine 0.92 MG/DL Estimat Glomerular Filtration 64 ML/MIN Rate Random Glucose 101 MG/DL Calcium Level 8.3 MG/DL Phosphorus Level 3.3 MG/DL Magnesium Level 1.3 MG/DL Culture Results Microbiology Date/Time Procedure Status Source Growth 12/13/16 18:40 Aerobic Blood Culture - Preliminary Resulted Blood Peripheral NO GROWTH IN 3 DAYS 12/13/16 18:40 Anaerobic Blood Culture - Preliminary Resulted Blood Peripheral NO GROWTH IN 3 DAYS 12/13/16 21:52 Aerobic Blood Culture - Preliminary Resulted Blood Line NO GROWTH IN 1 DAY 12/13/16 21:52 Anaerobic Blood Culture - Preliminary Resulted Blood Line NO GROWTH IN 1 DAY Administered Medications Medications (Trade) Dose Ordered Sig/Ermias Route PRN Reason Start Time Stop Time Status Last Admin Dose Admin Pantoprazole Sodium (Protonix Inj) 40 mg DAILY IV 12/07/16 16:15 12/16/16 08:00 Chlorhexidine Gluconate (Chlorhexidine 2% Cloth) Taper DAILY@04 TOP 12/08/16 04:00 12/04/17 03:59 12/14/16 02:31 Insulin Human Regular (NovoLIN R SUPPLEMENTAL SCALE) 1 Q6H SQ 12/07/16 18:00 12/13/16 17:34 Fentanyl Citrate (fentaNYL INJ) 25 mcg Q2H PRN IV PUSH PAIN 1-4 12/07/16 21:45 12/15/16 08:19 Fentanyl Citrate 50 mcg 50 mcg Q1H PRN IV PUSH PAIN 5-10 12/07/16 21:45 12/16/16 02:27 Phenylephrine HCl 40 mg/Dextrose 500 ml @ 0 mls/hr TITRATE IV 12/08/16 02:00 12/09/16 05:11 Potassium Chloride 100 ml @ 50 mls/hr Q2H PRN IV For Potassium 2.8 - 3.2 mEq/L 12/08/16 01:00 12/14/16 20:11 Potassium Chloride 100 ml @ 25 mls/hr UNSCH PRN IV For Potassium 3.3 - 3.5 mEq/L 12/08/16 01:00 12/10/16 10:50 Magnesium Sulfate 2 gm/Sodium Chloride 100 ml @ 50 mls/hr UNSCH PRN IV For Magnesium 1.2 - 1.6 mg/dL 12/08/16 01:00 12/16/16 10:26 Potassium Phosphate/Sodium Chloride (Potassium Phosphate Inj/NS 250 ml Inj) 260 ml @ 42 mls/hr UNSCH PRN IV SEE LABEL COMMENTS 12/08/16 01:00 12/12/16 05:51 Acetaminophen (Tylenol 650 Mg/ 20 ml Liq) 650 mg Q4H PRN TUBE TEMP >101 12/08/16 03:30 12/14/16 01:12 Chlorhexidine Gluconate 15 ml 15 ml BID@08,20 MT 12/08/16 08:00 12/15/16 08:19 Levetriacetam 1000 mg/Sodium Chloride 110 ml @ 420 mls/hr Q12H IV 12/09/16 03:00 12/16/16 04:59 Propofol (Diprivan 1000 Mg/100ml Inj) 100 ml @ 0 mls/hr TITRATE IV 12/09/16 00:45 12/12/16 10:16 Fluconazole (Diflucan) 100 mg DAILY PO 12/09/16 11:00 12/16/16 08:00 Metoclopramide HCl (Reglan Inj) 5 mg Q8H PRN IV PUSH high residuals 12/10/16 07:15 12/11/16 20:44 Metoprolol Tartrate (Lopressor) 25 mg Q12HR PO 12/11/16 09:00 12/16/16 08:00 Morphine Sulfate (Morphine Inj) 1 mg Q4H PRN IV PUSH pain 12/11/16 11:15 12/15/16 00:47 Diphenhydramine HCl 25 mg 25 mg Q4H PRN PO BLOOD PRODUCT ADMINISTRATION 12/11/16 20:15 12/11/16 20:21 Dexmedetomidine HCl 50 ml @ 0 mls/hr TITRATE IV 12/12/16 08:30 12/16/16 08:00 Cefepime HCl/ Sodium Chloride (Maxipime Inj/NS Inj) 100 ml @ 200 mls/hr Q8H IV 12/12/16 16:00 12/16/16 07:59 Sennosides (Senna Liq) 8.8 mg DAILY PO 12/13/16 09:00 12/13/16 09:07 Docusate Sodium (Colace Liq) 100 mg Q12HR PO 12/13/16 09:00 12/14/16 20:10 Hydralazine HCl (Apresoline Inj) 10 mg Q4H PRN IV SEE LABEL COMMENTS 12/15/16 02:15 12/15/16 02:18 Objective Remarks GENERAL: Middle aged female, sitting up in bed on 6L O2 via NC. SKIN: Warm and dry. HEAD: Normocephalic. EYES: No injection or drainage. NECK: Supple, trachea midline. CARDIOVASCULAR: +S1/S2 RESPIRATORY: anterior butler with occasional rhonchi. GASTROINTESTINAL: Abdomen soft, non-tender, nondistended. EXTREMITIES: No cyanosis. MUSCULOSKELETAL: Adequate muscle tone. NEUROLOGICAL: awake and alert, normal speech. able to move all extremities. Assessment/Plan Problem List: (1) Sepsis Status: Acute Plan: --likely bacterial meningitis -- CSF gram stain shows no growth --on multiple abx as above, per ID--will need to remain on abx for ~21 days per ID --U/A neg --CXR: small left pleural effusion. (2) SCLC (small cell lung carcinoma) Status: Acute Plan: --s/p Carboplatin/[employer] 16, last chemo given in early November (3) Normocytic anemia Status: Acute Plan: --transfuse as needed --monitor for bleeding (4) Thrombocytopenia Status: Acute Plan: --improving -- Likely consumptive due to acute illness. -- Fibrinogen OK. -- Transfuse for bleeding or platelets less than 20K. Assessment 51y/o admitted with hypotension, lethargy, leukocytosis, now critically ill in [facility], intubated and on pressor support h/o metastatic SCLC Plan 1. continue supportive care 2. monitor CBC, expect platelets to improve as acute illness resolves 3. continue abx per ID. Attending Statement The exam, history, and the medical decision-making described in the above note were completed with the assistance of the mid-level provider. I reviewed and agree with the findings presented. I attest that I had a [id number] encounter with the patient on the same day, and personally performed and documented my assessment and findings in the medical record. Thrombocytopenia due to sepsis/consumption/chemotherapy effect--trending up Hb 8.3. 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 d/w RN Problem Qualifiers (1) Sepsis: Qualified Code: A41.9 - Sepsis, due to unspecified organism Johanna Orozco Dec 16, 2016 11:19 Aakash Gama MD Dec 16, 2016 23:13
[2016-12-16] MEDS: LORazepam 2 MG/ML VIAL IV PUSH PRN ×3 (11:43→22:33)
--- NOTE | 2016-12-16 12:37 | HHI.PR ---
Subjective Remarks She is extubated , but still on Bipap . No fever. Good output. Failed Nasal cannula this am. Anxious Objective Vital Signs Date Time Temp Pulse Resp B/P Pulse Ox O2 Delivery O2 Flow Rate FiO2 12/16/16 11:53 99 50 12/16/16 10:00 99 12/16/16 08:00 98.5 88 22 142/86 100 12/16/16 08:00 88 12/16/16 07:52 99 35 12/16/16 07:00 100 Bi-Pap 30 12/16/16 04:00 108 25 136/86 99 12/16/16 04:00 90 12/16/16 03:35 100 30 12/16/16 02:00 84 12/16/16 00:00 88 12/16/16 00:00 98.9 85 18 150/84 100 12/15/16 23:13 100 35 12/15/16 22:00 85 12/15/16 20:54 100 40 12/15/16 20:00 98.8 97 20 151/91 100 12/15/16 20:00 100 12/15/16 19:00 100 Bi-Pap 40 12/15/16 18:45 99 Nasal Cannula 4.00 12/15/16 18:00 84 12/15/16 16:00 84 12/15/16 16:00 98.1 84 22 136/87 99 12/15/16 15:43 40 12/15/16 14:00 74 I/O 12/15/16 12/15/16 12/15/16 12/16/16 12/16/16 12/16/16 07:00 15:00 23:00 07:00 15:00 23:00 Intake Total 1892 ml 1115 ml 722 ml 600 ml Output Total 1500 ml 1700 ml 700 ml 651 ml Balance 392 ml -585 ml 22 ml -51 ml Intake Oral 0 ml 240 ml 200 ml IV Total 1348 ml 1015 ml 482 ml 400 ml Tube Feeding 344 ml 0 ml Other 200 ml 100 ml Output Urine Total 900 ml 1700 ml 700 ml 650 ml Stool Total 600 ml 0 ml 1 ml # Bowel Movements 2 0 0 Result Diagram: 12/16/1639912/16/16399 Objective Remarks This is an averagely built middle-aged lady who is alert on Bipap. HEENT: Head normocephalic. EYES: Pupils are reactive. Tongue is moist. Throat clear. Ears no inflammation. NECK: Supple. No bruits or thyroid enlargement. CHEST: Equal movements with scattered coarse wheezes throughout both lung butler with few basal crackles. HEART: The heart sounds are regular S1-S2 with no murmur. No S3. ABDOMEN: Soft and protuberant without masses. No organomegaly. Bowel sounds are faint. EXTREMITIES: No lesions. Peripheral pulses are diminished. Reflexes not elicited. The patient is sedated. Skin was dry and cool. Assessment and Plan Assessment and Plan IMPRESSION 1. Ventilator dependent respiratory failure.resolved 2. Bilateral pneumonia and ARDS 3. Has severe anemia 4. Acute kidney injury, resolving. 5. Small-cell lung cancer status post chemotherapy. 6. Meningitis 7. History of asthma and chronic bronchitis 8. Hypertension Plan : 1. Bipap 12/5 , 35 %.and wean to N/C 5 L in am 2. Nebs qid , albuterol. 3. Antibiotics per ID. 4. Soft diet as tolerated 5. Chest X ray,BMP in am. 6. Decadron 10 mg IV bid. 7. Precedex /Fentanyl for agitation Ronel Sparrow MD Dec 16, 2016 12:37
--- NOTE | 2016-12-16 14:31 | HHI.IDPN ---
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 Patient undergoes chemotherapy last session on Nov 11 with last dose of Neulasta on Nov 11 (per Oncology). Admitted with severe sepsis. Also has meningitis based on LP, but C/S negative Growing GNB from [facility] from 12/07 11/10 - no ID yet, sent to [facility] for ID On the vent and has tommie infiltrates WBC is ok, not neutropenic Delayed entry pt seen at 10 am. Notes reviewed Had to be placed on BiPap overnight. Tmax 99.9 F Awake and following commands. Oriented to place and person. No seizures. No rash Still no ID on GNR in [facility] from 12/07: sent to [facility]. Followup [facility] negative so far Antibiotics Cefepime Flagyl Fluconazole Lines Port R upper chest Past Medical History reviewed Allergies: Coded Allergies: Lipitor (Verified Adverse Reaction, Severe, Myalgia, 12/07/16) Codeine (Verified Adverse Reaction, Intermediate, Sedation, 12/07/16) Uncoded Allergies: SEASONAL ALLERGIES (Allergy, Mild, 03/13/08) estroven (Adverse Reaction, Intermediate, raised BP, 06/12/15) Objective . Vital Signs Date Time Temp Pulse Resp B/P Pulse Ox O2 Delivery O2 Flow Rate FiO2 12/16/16 14:00 86 12/16/16 12:00 114 12/16/16 12:00 97.9 114 30 147/93 98 12/16/16 11:53 99 50 12/16/16 10:00 99 12/16/16 08:00 98.5 88 22 142/86 100 12/16/16 08:00 88 12/16/16 07:52 99 35 12/16/16 07:00 100 Bi-Pap 30 12/16/16 04:00 108 25 136/86 99 12/16/16 04:00 90 12/16/16 03:35 100 30 12/16/16 02:00 84 12/16/16 00:00 88 12/16/16 00:00 98.9 85 18 150/84 100 12/15/16 23:13 100 35 12/15/16 22:00 85 12/15/16 20:54 100 40 12/15/16 20:00 98.8 97 20 151/91 100 12/15/16 20:00 100 12/15/16 19:00 100 Bi-Pap 40 12/15/16 18:45 99 Nasal Cannula 4.00 12/15/16 18:00 84 12/15/16 16:00 84 12/15/16 16:00 98.1 84 22 136/87 99 12/15/16 15:43 40 12/15/16 12/15/16 12/16/16 15:00 23:00 07:00 Intake Total 1115 ml 722 ml 600 ml Output Total 1700 ml 700 ml 651 ml Balance -585 ml 22 ml -51 ml Intake Oral 240 ml 200 ml IV Total 1015 ml 482 ml 400 ml Tube Feeding 0 ml Other 100 ml Output Urine Total 1700 ml 700 ml 650 ml Stool Total 0 ml 1 ml # Bowel Movements 0 0 . Laboratory Tests Test 12/15/16 12/16/16 03:50 04:00 White Blood Count 8.8 TH/MM3 13.1 TH/MM3 Red Blood Count 2.94 MIL/MM3 2.71 MIL/MM3 Hemoglobin 9.1 GM/DL 8.3 GM/DL Hematocrit 26.8 % 24.9 % Mean Corpuscular Volume 91.1 FL 91.8 FL Mean Corpuscular Hemoglobin 31.1 PG 30.7 PG Mean Corpuscular Hemoglobin 34.1 % 33.4 % Concent Red Cell Distribution Width 17.4 % 17.0 % Platelet Count 54 TH/MM3 62 TH/MM3 Mean Platelet Volume 13.0 FL 13.1 FL Laboratory Tests Test 12/14/16 12/15/16 12/15/16 12/16/16 16:45 03:50 17:10 04:00 Potassium Level 3.2 MEQ/L 4.1 MEQ/L 3.8 MEQ/L 3.7 MEQ/L Phosphorus Level 4.2 MG/DL 3.1 MG/DL 3.3 MG/DL Magnesium Level 2.1 MG/DL 1.6 MG/DL 1.3 MG/DL Sodium Level 154 MEQ/L 151 MEQ/L Chloride Level 117 MEQ/L 115 MEQ/L Carbon Dioxide Level 26.1 MEQ/L 26.1 MEQ/L Anion Gap 11 MEQ/L 10 MEQ/L Blood Urea Nitrogen 44 MG/DL 39 MG/DL Creatinine 1.06 MG/DL 0.92 MG/DL Estimat Glomerular Filtration 54 ML/MIN 64 ML/MIN Rate Random Glucose 151 MG/DL 101 MG/DL Calcium Level 7.4 MG/DL 8.3 MG/DL Protein Corrected Calcium 8.1 MG/DL Total Protein 5.8 GM/DL Microbiology Date/Time Procedure Status Source Growth 12/13/16 18:40 Aerobic Blood Culture - Preliminary Resulted Blood Peripheral NO GROWTH IN 3 DAYS 12/13/16 18:40 Anaerobic Blood Culture - Preliminary Resulted Blood Peripheral NO GROWTH IN 3 DAYS 12/13/16 21:52 Aerobic Blood Culture - Preliminary Resulted Blood Line NO GROWTH IN 2 DAYS 12/13/16 21:52 Anaerobic Blood Culture - Preliminary Resulted Blood Line NO GROWTH IN 2 DAYS Imaging Last Impressio Last Impressions Lung Scan-VQ Nuclear Medicine 12/09/16 0000 Signed Impressions: Service Date/Time: Friday, December 09, 2016 14:54 - CONCLUSION: Low probability for pulmonary embolism. Chaparro Baig MD Chest X-Ray 12/09/16 Signed Impressions: Service Date/Time: Friday, December 09, 2016 10:12 - CONCLUSION: 1. Endotracheal tube 8 mm above the kaitlynn and could be retracted 3 cm. 2. Slight worsening airspace disease greater in the right lung. Chaparro Baig MD Lumbar Puncture Fluoroscopy 12/08/16 0000 Signed Impressions: Service Date/Time: December 16:10 - CONCLUSION: Uncomplicated fluoroscopically guided lumbar puncture with pressures as above. Dustin Hand MD Lower Extremity Ultrasound 12/08/16 Signed Impressions: Service Date/Time: December 14:46 - CONCLUSION: Normal examination. Jamel Stevenson MD Abdomen Ultrasound 12/08/16 Signed Impressions: Service Date/Time: December 14:15 - CONCLUSION: 1. No evidence of abdominal mass 2. Echogenic kidneys bilaterally compatible with medical renal disease. 3. Small bilateral effusions Dustin Hand MD Head CT 12/07/16 0000 Signed Impressions: Service Date/Time: Wednesday, December 07, 2016 12:10 - CONCLUSION: Negative for acute process.. Gurwinder Hernandez MD FACR Brain MRI 12/07/16 0000 Signed Impressions: Service Date/Time: Wednesday, December 07, 2016 15:03 - CONCLUSION: 1. Negative MRI of the brain. I do not see an etiology for the patient's metastatic disease. 2. I do not see obvious findings of a meningeal carcinomatosis either. Gurwinder Hernandez MD FACR Abdomen/Pelvis CT 12/07/16 0000 Signed Impressions: Service Date/Time: Wednesday, December 07, 2016 16:45 - CONCLUSION: 1. Abnormal lung bases with coarse interstitial changes suggesting fibrosis. 2. Abnormal left kidney. Pyelonephritis cannot be excluded without contrast. 3. The gallbladder appears prominent but unremarkable. 4. I do not see any etiology for the patient's abdominal pain. Gurwinder Hernandez MD FACR Physical Exam GENERAL: Awake, following, has alopecia, NAD. SKIN: No rashes. Has dark reddish color all distal fingers and toes (baseline) HEAD: Atraumatic. Normocephalic. No temporal or scalp tenderness. Alopecia EYES: No petechia, no hemorrhage. No scleral icterus. No injection or drainage. ENT: no nasal discharge NECK: Trachea midline. Supple, nontender, no meningeal signs. CARDIOVASCULAR: HS audible. Port no evidence of infection RESPIRATORY: Breath sounds equal bilaterally. Coarse BS tommie GASTROINTESTINAL: Abdomen soft,non tender, non distended. MUSCULOSKELETAL: Extremities without clubbing, cyanosis, or edema. No joint effusion. ) NEUROLOGICAL: Awake and following Psych: could not be assessed. LINE: IV line sites, port with no evidence of infection : Noriega in place, urine looks clear Assessment & Plan Remarks IMPRESSION GNR sepsis - ID pending; not growing well, growing in aerobic bottle Port in place. Septic Shock with Multiorgan dysfunction syndrome (MODS) - BP better, off pressors Meningitis: bacterial. - CSF C/S negative Aspiration pneumonia. Acute metabolic encephalopathy: Meningitis, Sepsis, SIADH Acute renal failure likely prerenal or sepsis Immune compromised, Small cell lung cancer with metastasis Anemia acute onset. Low grade temps Recommendations: Continue Cefepime Continue Oral Diflucan Continue Flagyl UA and C/S Follow C/S Follow temps Monitor progress Pts family meeting with palliative care today to address goals of therapy. Patient is still not capable of making decisions she is being treated for meningitis. covering for me this weekend. Leena Fletcher MD Dec 16, 2016 14:31
[2016-12-16] MEDS ORDERED: BUMETANIDE INJ 1 MG/4 ML VIAL IV PUSH ONE (16:00)
--- NOTE | 2016-12-16 17:46 | HHI.HCPN ---
Reason for visit a. To assist with evaluation and management of symptoms including: pain, dyspnea, anxiety b. To assist medical decision maker(s) with: better understanding of current medical conditions; weighing benefits/burdens of medical treatment options; making medical treatment decisions. . Subjective/Interval History Patient seen and assessed in room 515. Patient tolerated oxygen via nasal cannula for approximately 4 hours this morning before becoming quite agitated and tachypneic. Patient was subsequently placed on BiPAP. Received PRN Lorazepam and Fentanyl; remains on Precedex drip. Bumex 1mg administered x 1 for pulmonary edema. Afebrile over night. Patient remains on cefepime, oral Diflucan and Flagyl. = Blood cultures showing no growth in 2 days = Sputum culture showing no growth in 48 hours = WBC increased to 13.1, hemoglobin 8.3, hematocrit 24.9, platelets 62 ( increased from 54 12/15/16) = Sodium: 151, potassium 3.7, chloride 1:15, carbon dioxide 26.1, glucose 101, calcium 8.3, magnesium 1.3 = Kidney functioning improving; BUN 39, creatinine 0.92, GFR 64 Follow-up chest x-ray 12/15/16 showing improved aeration of the lung bases with residual mild consolidation in the right lower lung zone. Swallow evaluation completed. Diet advance to mechanically soft with thin liquids. . Family/friend interactions Met with patient's spouse (Vish) and siblings (Natalee and José) in the family conference room. We discussed patient current clinical condition and overall health since being diagnosed with cancer. Patient is currently being treated for septic shock with multi-organ dysfunction. Family spoke with oncology earlier this week, and they remain hopeful that the patient will survive this hospitalization and be able to resume chemotherapy in the future. Patient's , Vish, states he spoke with the patient earlier and she clearly indicated her goals remain aggressive at this time. Patient's siblings appear to be more accepting of the patient's overall prognosis is quite poor but will remain supportive of the patient's/spouse's medical treatment goals. . Advance Directives Advance Directive Specifics Documented care wishes: None available at this time. . Objective Vital Signs Date Time Temp Pulse Resp B/P Pulse Ox O2 Delivery O2 Flow Rate FiO2 12/16/16 16:00 98.1 96 21 124/82 95 12/16/16 16:00 96 12/16/16 15:39 98 40 12/16/16 14:00 86 12/16/16 12:00 114 12/16/16 12:00 97.9 114 30 147/93 98 12/16/16 11:53 99 50 12/16/16 10:00 99 12/16/16 08:00 98.5 88 22 142/86 100 12/16/16 08:00 88 12/16/16 07:52 99 35 12/16/16 07:00 100 Bi-Pap 30 12/16/16 04:00 108 25 136/86 99 12/16/16 04:00 90 12/16/16 03:35 100 30 12/16/16 02:00 84 12/16/16 00:00 88 12/16/16 00:00 98.9 85 18 150/84 100 12/15/16 23:13 100 35 12/15/16 22:00 85 12/15/16 20:54 100 40 12/15/16 20:00 98.8 97 20 151/91 100 12/15/16 20:00 100 12/15/16 19:00 100 Bi-Pap 40 12/15/16 18:45 99 Nasal Cannula 4.00 12/15/16 18:00 84 Intake & Output 12/16/16 12/16/16 07:00 19:00 Intake Total 1322 ml 590 ml Output Total 1351 ml 500 ml Balance -29 ml 90 ml Intake Oral 440 ml 240 ml IV Total 882 ml 350 ml Output Urine Total 1350 ml 500 ml Stool Total 1 ml # Bowel Movements 0 0 . Physical Exam CONSTITUTIONAL/GENERAL: This is an adequately nourished, middle aged female patient on BiPAP TUBES/LINES/DRAINS: Noriega, OG tube, BiPAP and, Port, PIV, rectal tube SKIN: No jaundice, rashes, or lesions. No wounds seen anteriorly. Skin temperature WNL HEAD: Atraumatic. Normocephalic. EYES: Pupils equal and round and sluggish. ENT: Nose without bleeding or purulent drainage. BiPAP mask in place. NECK: Trachea midline. CARDIOVASCULAR: Regular rate and rhythm without murmurs, gallops, or rubs. RESPIRATORY/CHEST: On BiPAP. Course breath sounds bilaterally. Intermittent tachypnea. GASTROINTESTINAL: Abdomen soft, non-tender, nondistended. GENITOURINARY: Without palpable bladder distension. Noriega in place MUSCULOSKELETAL: Extremities without clubbing or cyanosis. LYMPHATICS: No palpable cervical or supraclavicular adenopathy. NEUROLOGICAL: Lethargic. Arouses to verbal stimuli. PSYCHIATRIC: Unable to assess given patient's current clinical condition. . Diagnostic Tests Laboratory Laboratory Tests Test 12/13/16 12/14/16 12/14/16 12/14/16 21:52 02:20 04:35 11:40 Potassium Level 2.6 MEQ/L 2.6 MEQ/L (3.5-5.1) (3.5-5.1) Calcium Level 7.2 MG/DL 7.4 MG/DL (8.5-10.1) (8.5-10.1) Magnesium Level 1.3 MG/DL 1.3 MG/DL (1.5-2.5) (1.5-2.5) White Blood Count 10.9 TH/MM3 (4.0-11.0) Red Blood Count 2.96 MIL/MM3 (4.00-5.30) Hemoglobin 9.3 GM/DL (11.6-15.3) Hematocrit 26.5 % (35.0-46.0) Mean Corpuscular Volume 89.5 FL (80.0-100.0) Mean Corpuscular Hemoglobin 31.4 PG (27.0-34.0) Mean Corpuscular Hemoglobin 35.1 % Concent (32.0-36.0) Red Cell Distribution Width 16.9 % (11.6-17.2) Platelet Count 38 TH/MM3 (150-450) Mean Platelet Volume 13.0 FL (7.0-11.0) Neutrophils (%) (Auto) 57.1 % (16.0-70.0) Lymphocytes (%) (Auto) 32.7 % (9.0-44.0) Monocytes (%) (Auto) 9.8 % (0.0-8.0) Eosinophils (%) (Auto) 0.2 % (0.0-4.0) Basophils (%) (Auto) 0.2 % (0.0-2.0) Neutrophils # (Auto) 6.3 TH/MM3 (1.8-7.7) Lymphocytes # (Auto) 3.6 TH/MM3 (1.0-4.8) Monocytes # (Auto) 1.1 TH/MM3 (0-0.9) Eosinophils # (Auto) 0.0 TH/MM3 (0-0.4) Basophils # (Auto) 0.0 TH/MM3 (0-0.2) CBC Comment AUTO DIFF Differential Comment AUTO DIFF CONFIRMED Platelet Estimate LOW (NORMAL) Platelet Morphology Comment ENLARGED (NORMAL) Target Cells 1+ (NORMAL) [place] Bodies PRESENT (NONE SEEN) Acanthocytes OCC (NORMAL) Keratocytes OCC (NORMAL) Prothrombin Time 14.0 SEC (9.8-11.6) Prothromb Time International 1.3 RATIO Ratio Activated Partial 25.5 SEC Thromboplast Time (24.3-30.1) Fibrinogen 296 mg/dL (181-393) Sodium Level 148 MEQ/L (136-145) Chloride Level 104 MEQ/L (98-107) Carbon Dioxide Level 35.3 MEQ/L (21.0-32.0) Anion Gap 9 MEQ/L (5-15) Blood Urea Nitrogen 54 MG/DL (7-18) Creatinine 1.29 MG/DL (0.50-1.00) Estimat Glomerular Filtration 43 ML/MIN (>89) Rate Random Glucose 132 MG/DL (74-106) Protein Corrected Calcium 8.2 MG/DL (8.5-10.1) Phosphorus Level 2.1 MG/DL (2.5-4.9) Total Protein 5.7 GM/DL (6.4-8.2) Blood Gas Puncture Site RT RADIAL RT RADIAL Blood Gas Patient Temperature 98.6 98.6 Blood Gas HCO3 31 mmol/L 30 mmol/L (22-26) (22-26) Blood Gas Base Excess 8.0 mmol/L 6.9 mmol/L (-2-2) (-2-2) Blood Gas Oxygen Saturation 92 % (90-100) 94 % (90-100) Arterial Blood pH 7.55 7.51 (7.380-7.420) (7.380-7.420) Arterial Blood Partial 35 mmHg (38-42) 39 mmHg (38-42) Pressure CO2 Arterial Blood Partial 68 mmHg 84 mmHg Pressure O2 (61-120) (61-120) Arterial Blood Oxygen Content 11.3 Vol % 11.7 Vol % (12.0-20.0) (12.0-20.0) Arterial Blood 1.7 % (0-4) 1.7 % (0-4) Carboxyhemoglobin Arterial Blood Methemoglobin 1.0 % (0-2) 1.2 % (0-2) Blood Gas Hemoglobin 8.8 G/DL 8.8 G/DL (12.0-16.0) (12.0-16.0) Oxygen Delivery Device VENTILATOR VENTILATOR Blood Gas Ventilator Setting PRVC/AC CPAP+5/PS+5 Blood Gas Inspired Oxygen 40 % 40 % Test 12/14/16 12/14/16 12/15/16 12/15/16 16:45 21:50 03:50 09:47 Potassium Level 3.2 MEQ/L 4.1 MEQ/L (3.5-5.1) (3.5-5.1) Phosphorus Level 4.2 MG/DL 3.1 MG/DL (2.5-4.9) (2.5-4.9) Magnesium Level 2.1 MG/DL 1.6 MG/DL (1.5-2.5) (1.5-2.5) Urine Color YELLOW (YELLW/STRAW) Urine Turbidity CLEAR (CLEAR) Urine pH 7.0 (5.0-8.5) Urine Specific [place] 1.015 (1.002-1.035) Urine Protein 30 mg/dL (NEG-TRACE) Urine Glucose (UA) TRACE mg/dL (NEG) Urine Ketones NEG mg/dL (NEG) Urine Occult Blood MOD (NEG) Urine Nitrite NEG (NEG) Urine Bilirubin NEG (NEG) Urine Urobilinogen LESS THAN 2.0 MG/DL (LESS THAN 2.0) Urine Leukocyte Esterase NEG (NEG) Urine RBC LESS THAN 1 /hpf (0-3) Urine WBC 2 /hpf (0-5) Urine Squamous Epithelial <1 /hpf (0-5) Cells Urine Mucus FEW /lpf (OCC) Microscopic Urinalysis Comment CATH-CULT NOT IND White Blood Count 8.8 TH/MM3 (4.0-11.0) Red Blood Count 2.94 MIL/MM3 (4.00-5.30) Hemoglobin 9.1 GM/DL (11.6-15.3) Hematocrit 26.8 % (35.0-46.0) Mean Corpuscular Volume 91.1 FL (80.0-100.0) Mean Corpuscular Hemoglobin 31.1 PG (27.0-34.0) Mean Corpuscular Hemoglobin 34.1 % Concent (32.0-36.0) Red Cell Distribution Width 17.4 % (11.6-17.2) Platelet Count 54 TH/MM3 (150-450) Mean Platelet Volume 13.0 FL (7.0-11.0) Sodium Level 154 MEQ/L (136-145) Chloride Level 117 MEQ/L (98-107) Carbon Dioxide Level 26.1 MEQ/L (21.0-32.0) Anion Gap 11 MEQ/L (5-15) Blood Urea Nitrogen 44 MG/DL (7-18) Creatinine 1.06 MG/DL (0.50-1.00) Estimat Glomerular Filtration 54 ML/MIN (>89) Rate Random Glucose 151 MG/DL (74-106) Calcium Level 7.4 MG/DL (8.5-10.1) Protein Corrected Calcium 8.1 MG/DL (8.5-10.1) Total Protein 5.8 GM/DL (6.4-8.2) Blood Gas Puncture Site RT RADIAL Blood Gas Patient Temperature 98.6 Blood Gas HCO3 24 mmol/L (22-26) Blood Gas Base Excess 1.0 mmol/L (-2-2) Blood Gas Oxygen Saturation 94 % (90-100) Arterial Blood pH 7.47 (7.380-7.420) Arterial Blood Partial 34 mmHg (38-42) Pressure CO2 Arterial Blood Partial 84 mmHg Pressure O2 (61-120) Arterial Blood Oxygen Content 15.5 Vol % (12.0-20.0) Arterial Blood 1.4 % (0-4) Carboxyhemoglobin Arterial Blood Methemoglobin 1.0 % (0-2) Blood Gas Hemoglobin 11.6 G/DL (12.0-16.0) Oxygen Delivery Device VENTILATOR Blood Gas Ventilator Setting CPAP5/PS 5 Blood Gas Inspired Oxygen 35 % Test 12/15/16 12/16/16 17:10 04:00 Potassium Level 3.8 MEQ/L 3.7 MEQ/L (3.5-5.1) (3.5-5.1) White Blood Count 13.1 TH/MM3 (4.0-11.0) Red Blood Count 2.71 MIL/MM3 (4.00-5.30) Hemoglobin 8.3 GM/DL (11.6-15.3) Hematocrit 24.9 % (35.0-46.0) Mean Corpuscular Volume 91.8 FL (80.0-100.0) Mean Corpuscular Hemoglobin 30.7 PG (27.0-34.0) Mean Corpuscular Hemoglobin 33.4 % Concent (32.0-36.0) Red Cell Distribution Width 17.0 % (11.6-17.2) Platelet Count 62 TH/MM3 (150-450) Mean Platelet Volume 13.1 FL (7.0-11.0) Fibrinogen 241 mg/dL (181-393) Sodium Level 151 MEQ/L (136-145) Chloride Level 115 MEQ/L (98-107) Carbon Dioxide Level 26.1 MEQ/L (21.0-32.0) Anion Gap 10 MEQ/L (5-15) Blood Urea Nitrogen 39 MG/DL (7-18) Creatinine 0.92 MG/DL (0.50-1.00) Estimat Glomerular Filtration 64 ML/MIN (>89) Rate Random Glucose 101 MG/DL (74-106) Calcium Level 8.3 MG/DL (8.5-10.1) Phosphorus Level 3.3 MG/DL (2.5-4.9) Magnesium Level 1.3 MG/DL (1.5-2.5) . Result Diagram: 12/16/160 12/16/160 Microbiology Microbiology Date/Time Procedure Status Source Growth 12/13/16 18:40 Aerobic Blood Culture - Preliminary Resulted Blood Peripheral NO GROWTH IN 3 DAYS 12/13/16 18:40 Anaerobic Blood Culture - Preliminary Resulted Blood Peripheral NO GROWTH IN 3 DAYS 12/13/16 21:52 Aerobic Blood Culture - Preliminary Resulted Blood Line NO GROWTH IN 2 DAYS 12/13/16 21:52 Anaerobic Blood Culture - Preliminary Resulted Blood Line NO GROWTH IN 2 DAYS . Imaging Last 72 hours Impressions Chest X-Ray 12/15/16 0000 Signed Impressions: Service Date/Time: December 08:00 - CONCLUSION: Improved aeration at the lung bases with residual mild consolidation in the right lower lung zone. Bakari Charles MD Chest X-Ray 12/14/16 0000 Signed Impressions: Service Date/Time: Wednesday, December 14, 2016 10:35 - CONCLUSION: 1. Stable chest x-ray with small left pleural effusion and bilateral lower lung zone airspace opacity. 2. Endotracheal tube in stable position with tip measuring 14 mm from the kaitlynn. Bakari Charles MD . Procedures 12/07/16: Lumbar puncture 12/08/16; Intubation 12/15/16: extubation . Assessment and Plan Disease Oriented Problem List: (1) Hyponatremia (2) Hypokalemia (3) SIADH (syndrome of inappropriate ADH production) (4) Lung cancer, primary, with metastasis from lung to other site (5) Acute renal failure (6) Thrombocytopenia (7) Sepsis (8) Elevated LFTs (9) SCLC (small cell lung carcinoma) (10) Altered mental status (11) Tobacco abuse (12) Asthma (13) HTN (hypertension) (14) Bacteremia Comment: Growing GNB from [facility] from 12/07 11/10 - no ID yet, sent to [facility] for ID. Followup Blood culture negative to date. (15) Chronic obstructive pulmonary disease (16) Anemia Symptom Scale: (1) Anxiety 0-10 Scale: Unable to quantify Comment: On Precedex, new orders for PRN lorazepam. . (2) Dyspnea 0-10 Scale: Unable to quantify Comment: Patient tolerated oxygen via nasal cannula for approximately 4 hours this morning before becoming quite agitated and tachypneic. Patient was subsequently placed on BiPAP. Received PRN Lorazepam and Fentanyl; remains on Precedex drip. Bumex 1mg administered x 1 for pulmonary edema. Chest x-ray on 12/14/16 stable with small left pleural effusion and bilateral lower lung zone airspace opacity. Follow-up chest x-ray today on 12/15/16 showing improved aeration of the lung bases with residual mild consolidation in the right lower lung zone. . (3) Pain 0-10 Scale: Unable to quantify Comment: PRN morphine and fentanyl available. Patient has received fentanyl 50 g 3 in the past 24 hours. No morphine administered. Pertinent Non-Medical Issues Psychosocial: Patient was born and raised in [place], [place]. She is , currently living in [place]. She has no children. The patient has a college degree but is unemployed at this time. Patient has 2 siblings, Natalee and José, who live locally. Spiritual: Taoist teofilo Legal: Per [place] statutes, in the absence of written advanced directives healthcare proxy decision making would fall to the patient's spouse, Bakari Galaviz. Ethical issues impacting care: None known at this time . Important Contacts Bakari Galaviz, spouse: [phone] Natalee Aponte, sister: [phone] José Henderson: [phone] . Prognosis Patient was diagnosed with extensive stage small cell lung cancer for which she was receiving chemotherapy consisting of cisplatin and etoposide. She has metastatic disease to the liver. A liver biopsy was completed on 10/14/16- results were consistent with small cell lung cancer. Patient has received 2 rounds of chemotherapy. 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 Patient has become progressively more weak per family who verbalized concern she is unable to tolerate further treatment. Overall prognosis is poor. . Code Status: Full Code Plan * FULL CODE * Decision making: Patient is currently intubated and does not have capacity to participate in health care decision making. It is unclear at this time if the patient will regain capacity. Per [place] statutes in the absence of written advanced directives healthcare proxy decision-making falls to the patient's , Bakari Galaviz. * Goals: Patient's , Vish, states he spoke with the patient earlier and she clearly indicated to him earlier today that her goals remain aggressive at this time. However, the family states they would not want to cause the patient further pain unnecessarily. They are amenable to reevaluating medical treatment goals again on Monday12/19/16. * Family spoke with oncology earlier this week, and they remain hopeful that the patient will survive this hospitalization and be able to resume chemotherapy in the future. * Patient's siblings appear to be more accepting that the patient's overall prognosis is quite poor, but remain supportive of the patient's/spouse's medical treatment goals. Appreciative of continued palliative care support. * Symptom managementpain: Possible causes of pain may include disease progression, comorbid conditions, invasiveness lines, immobility, bedbound status etc. Palliative care will monitor PRN requirements and make recommendations as indicated. PRN morphine and fentanyl available. Patient has received fentanyl 50 g 3 in the past 24 hours. No morphine administered. * Symptom managementdyspnea: Patient tolerated oxygen via nasal cannula for approximately 4 hours this morning before becoming quite agitated and tachypneic. Patient was subsequently placed on BiPAP. Received PRN Lorazepam and Fentanyl; remains on Precedex drip. Bumex 1mg administered x 1 for pulmonary edema. Chest x-ray on 12/14/16 stable with small left pleural effusion and bilateral lower lung zone airspace opacity. Follow-up chest x-ray today on 12/15/16 showing improved aeration of the lung bases with residual mild consolidation in the right lower lung zone. * Symptom managementanxiety: Anxiety appears to be secondary to respiratory distress. Remains on Precedex infusion, new orders for PRN lorazepam. * Palliative care will continue to follow this patient throughout her hospitalization to establish trust, assist with symptom management and clarification of medical treatment goals. . Attestation To help prompt me to consider important information that might be impacting today's encounter and assessment, information from prior notes written by myself or my colleagues may have been "brought forward" into today's note. My signature on this note, however, is an attestation that I personally performed the exam, history, and/or decision-making noted today, and, unless otherwise indicated, the interactions with patient, family, and staff as well as the review of records all occurred today. I also attest that the listed assessment and stated plan reflect my best clinical judgment today based on the combination of historical information, prior notes, and today's exam/ interactions. When time spent is documented, it refers only to time spent today by the signer, or if indicated, combined time spent today by collaborating physician/nurse practitioner. . Jordana Jc Dec 16, 2016 17:46
[2016-12-16] MEDS ORDERED: MAGNESIUM SULFATE 1 GM PREMIX 100 ML IV ONE (23:15)
[2016-12-17] VITALS (17 sets, daily range): BP systolic 122–142; BP diastolic 80–91; PULSE 71–133; RESP 16–33; TEMP 98.1–99.6; O2SAT 40–100
[2016-12-17] MEDS: DEXMEDETOMIDINE INJ 50 ML IV SCH ×5 (01:40→23:01)
[2016-12-17] MEDS: MORPHINE SULFATE 4 MG/ML INJ IV PUSH PRN ×3 (02:12→19:15)
[2016-12-17] MEDS: levETIRAcetam INJ 1,000 MG in SODIUM CHLORIDE 0.9% INJ 100 ML IV SCH ×2 (03:00→15:27)
[2016-12-17] MEDS: CHLORHEXIDINE GLUCONATE 2 % 1 PACK (2 CLOTHS) TOP SCH ×2 (03:02→19:31)
[2016-12-17] MEDS: RESP: ALBUTEROL 2.5 MG/IPRATROPIUM 0.5 MG NEB (SCH) NEB ×4 (03:17→15:39)
[2016-12-17] MEDS: LORazepam 2 MG/ML VIAL IV PUSH PRN ×2 (03:24→20:18)
--- NOTE | 2016-12-17 03:40 | RADRPT ---
EXAM DATE/TIME: 12/17/2016 03:00 [facility] COMPARISON: CHEST SINGLE AP, December 15, 2016, 8:00. INDICATIONS : Shortness of breath, possible pulmonary disease MEDICAL HISTORY : Hypertension. Emphysema. Carcinoma, lung. SURGICAL HISTORY : None. ENCOUNTER: Subsequent ACUITY: 1 week PAIN SCORE: 5/10 LOCATION: Bilateral chest FINDINGS: [id number] catheter tip projects over the distal superior vena cava. Interval extubation. Interv al development of bilateral lower lung infiltrates, patchy throughout the right mid and lower lung an d with consolidation medial left lower lung causing loss of delineation of the medial left hemidiaphr agm. CONCLUSION: Interval development of bilateral lower lung infiltrates and consolidation in the left lower lobe. Baron Gar MD on December 17, 2016 at 3:38 Board Certified Radiologist. This report was verified electronically.
[2016-12-17 04:13] LABS: AUTOMATED NEUTROPHIL # 8.4 TH/MM3 (1.8-7.7); BASOPHIL % 0.4 % (0.0-2.0); LYMPH % 14.3 % (9.0-44.0); LYMPHOCYTE # 1.8 TH/MM3 (1.0-4.8); MEAN CELL VOLUME 92.2 FL (80.0-100.0); MEAN CORPUSCULAR HEMOGLOBIN 30.7 PG (27.0-34.0); MEAN CORPUSCULAR HGB CONC 33.4 % (32.0-36.0); MONO % 20.5 % (0.0-8.0); NEUT % 64.8 % (16.0-70.0); PLATELET COUNT 73 TH/MM3 (150-450); RED BLOOD COUNT 2.49 MIL/MM3 (4.00-5.30); RED CELL DISTRIBUTION WIDTH 16.9 % (11.6-17.2); WHITE BLOOD COUNT 12.9 TH/MM3 (4.0-11.0)
[2016-12-17 04:18] LABS: HEMO FLAGS AUTO DIFF
[2016-12-17 05:11] LABS: BICARBONATE 27.7 MEQ/L (21.0-32.0); MAGNESIUM 1.8 MG/DL (1.5-2.5)
[2016-12-17] MEDS: INSULIN NovoLIN REGULAR SUPPLEMENTAL SCALE SQ SCH ×3 (05:24→18:00)
[2016-12-17 05:35] LABS: POTASSIUM 2.7 MEQ/L (3.5-5.1)
[2016-12-17] MEDS: POTASSIUM CHLOR 40 MEQ PREMIX 100 ML IV PRN ×2 (05:41→05:42)
[2016-12-17] MEDS: CEFEPIME INJ 2,000 MG in SODIUM CHLORIDE 0.9% INJ 100 ML IV SCH ×2 (07:39→15:26)
[2016-12-17] MEDS: PANTOPRAZOLE SODIUM 40 MG VIAL IV SCH (07:40)
[2016-12-17] MEDS: DEXAMETHASONE SOD PHOS 20 MG/5 ML VIAL IV PUSH SCH ×2 (07:42→19:18)
[2016-12-17] MEDS: DOCUSATE SODIUM 100 MG/10 ML UDC PO SCH ×2 (07:42→19:30)
[2016-12-17] MEDS: METOPROLOL TARTRATE 25 MG TAB PO SCH ×2 (07:43→19:30)
[2016-12-17] MEDS: FLUCONAZOLE 100 MG TAB PO SCH (07:43)
[2016-12-17] MEDS: SENNOSIDES SYRUP 8.8 MG/5 ML CUP PO SCH (07:43)
[2016-12-17] MEDS: CHLORHEXIDINE 0.12% (ORAL KIT) 15 ML CUP MT SCH ×2 (08:00→19:30)
[2016-12-17] MEDS ORDERED: BUMETANIDE INJ 1 MG/4 ML VIAL IV PUSH ONE (08:45)
--- NOTE | 2016-12-17 09:03 | HHI.CCPN ---
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 She presented to [facility] ED with altered mental status, lethargy and fever for the past couple days. Her last chemotherapy was two days ago however when the patient went to receive another session yesterday it was not given due to her condition and instead she was given IV hydration. On arrival to the ED, the patient was tachycardic with a heart rate of 110-120s and initially she was hypotensive with a systolic blood pressure 80s-90s. She also was found to have a temperature of 100.7 rectally. In the ED she was given 2 liter boluses of normal saline with improvement of her blood pressure to 141/ 86. Her laboratory data showed mild acute kidney injury with a creatinine level of 1.31 and hyponatremia with a sodium level of 131. In addition, the patient had significant leukocytosis with a WBC of 71.4 associated with bandemia 28. Also, her hemoglobin was 6.8 with hematocrit of 20.2. Two units of packed RBCs have been ordered by the ED physician. The patient received a Neulasta injection post her chemotherapy. Due to her altered mental status, a CT scan of the brain was obtained which was negative for acute process. The patient also had MRI of the brain which was negative for any metastatic disease. A chest x-ray in the ED showed Infusaport in good position and mild interstitial prominence. The patient received Vancomycin and cefepime in the ED , and a CT scan of the abdomen and pelvis has been ordered. Overall, history is limited as the patient is a poor historian. However, she is not complaining of any pain. 3/ Last night patient became tachycardic, hypoxic and worsening mental status she was subsequently intubated and placed on mechanical ventilation. She received additional 2L NS for hypotension and started on Neosyn 50 mics. s/p transfusion 2u PRBC yesterday for Hgb 6.8 her Hgb 11.2 this morning. 12/09 Patient remains sedated with Diprivan and intubated. On Neosyn 40 mics and bicarb drip. T:99.9 last night WBC trending down 24 today from 55. s/p LP showed clear CSF, WBC 978, TP:179 , nl glc 12/10 Patient is sedated with Diprivan and intubated. Off Neosyn. Afebrile. V/Q scaln yesterday low prob. BC from 12/07 GNR. 12/11 No acute events overnight. Sedated with Diprivan and intubated. Afebrile. WBC trending down. PLT 18 this morning. Tolerated CPAP x 4 hrs yesterday 12/12 Patient remains sedated and intubated. On ACV RR20, TV 500, PEEP:5, FIO2 55% . Afebrile. s/p transfusion 1u PLT and FFP yesterday per heme. 12/13 No acute events overnight. On Precedex infusion . CXR overall better today. Off Bumex drip. Afebrile. 12/14: Remains intubated, awake. UO adequate off Bumex drip. CXR stable to improving. Plt count 38. 12/15: Remains intubated, wide awake and following commands. CXR today improved. Bilateral wheezing 12/16 Patient is on Precedex drip 0.5 extubated yesterday and now on BIPAP 07/13 with 30% FIO2. Afebrile. 12/17: worsening hypoxia overnight. placed back on BiPAP. this AM more dyspneic, not tolerating BiPAP well. still on precedex. tachypneic. leukocytosis persists. K 2.7 this AM, being replaced. Hgb slightly lower at 7.7 this AM. tachycardic, but likely related to agitation and anxiety and not secondary to anemia in the setting of ongoing volume overload. Objective Vital Signs Date Time Temp Pulse Resp B/P Pulse Ox O2 Delivery O2 Flow Rate FiO2 12/17/16 06:00 93 12/17/16 04:00 98.5 20 134/80 100 12/17/16 03:16 40 12/16/16 19:00 Bi-Pap 12/15/16 18:45 4.00 Intake and Output 12/16/16 12/16/16 12/17/16 08:00 16:00 00:00 Intake Total 600 ml 590 ml 353 ml Output Total 651 ml 500 ml 2000 ml Balance -51 ml 90 ml -1647 ml Result Diagram: 12/17/16 0338 12/17/16 0338 Imaging Last Impressions Chest X-Ray 12/15/16 0000 Signed Impressions: Service Date/Time: December 08:00 - CONCLUSION: Improved aeration at the lung bases with residual mild consolidation in the right lower lung zone. Bakari Charles MD Lung Scan-VQ Nuclear Medicine 12/09/16 0000 Signed Impressions: Service Date/Time: Friday, December 09, 2016 14:54 - CONCLUSION: Low probability for pulmonary embolism. Chaparro Baig MD Lumbar Puncture Fluoroscopy 12/08/16 Signed Impressions: Service Date/Time: December 16:10 - CONCLUSION: Uncomplicated fluoroscopically guided lumbar puncture with pressures as above. Dustin Hand MD Lower Extremity Ultrasound 12/08/16 0000 Signed Impressions: Service Date/Time: December 14:46 - CONCLUSION: Normal examination. Jamel Stevenson MD Abdomen Ultrasound 12/08/16 Signed Impressions: Service Date/Time: December 14:15 - CONCLUSION: 1. No evidence of abdominal mass 2. Echogenic kidneys bilaterally compatible with medical renal disease. 3. Small bilateral effusions Dustin Hand MD Head CT 12/07/16 0000 Signed Impressions: Service Date/Time: Wednesday, December 07, 2016 12:10 - CONCLUSION: Negative for acute process.. Gurwinder Hernandez MD FACR Brain MRI 12/07/16 0000 Signed Impressions: Service Date/Time: Wednesday, December 07, 2016 15:03 - CONCLUSION: 1. Negative MRI of the brain. I do not see an etiology for the patient's metastatic disease. 2. I do not see obvious findings of a meningeal carcinomatosis either. Gurwinder Hernandez MD FACR Abdomen/Pelvis CT 12/07/16 0000 Signed Impressions: Service Date/Time: Wednesday, December 07, 2016 16:45 - CONCLUSION: 1. Abnormal lung bases with coarse interstitial changes suggesting fibrosis. 2. Abnormal left kidney. Pyelonephritis cannot be excluded without contrast. 3. The gallbladder appears prominent but unremarkable. 4. I do not see any etiology for the patient's abdominal pain. Gurwinder Hernandez MD FACR Objective Remarks GENERAL: Patient is 51 yo critically ill appearing on BIPAP, in moderate respiratory distress SKIN: Warm and dry. HEAD: Normocephalic. EYES: No scleral icterus. No injection or drainage. NECK: Supple, trachea midline. No JVD or lymphadenopathy. CARDIOVASCULAR: tachycardic rate, regular rhythm without appreciable murmurs. RESPIRATORY: Breath sounds equal bilaterally. Bilateral expiratory wheezing. moderately tachypneic GASTROINTESTINAL: Abdomen soft, mild tenderness on palpation. MUSCULOSKELETAL: No cyanosis, or edema. Neuro: Awake alert. Follows commands all 4 extremities A/P Assessment and Plan ASSESSMENT: 51yF with widely metastatic small cell lung cancer, course complicated by sepsis, presumed bacterial meningitis, encephalopathy, hypoxic respiratory failure. She continues to downtrend and has worsening hypoxia today , likely multifactorial, including a large volume overload component. will proceed with forced diuresis and continue with NIPPV at this point. I have discussed her care with Heme/Onc as well as with her at bedside. I am concerned she may require re-intubation if her respiratory failure persists and does not improve. If this occurs, I do not think it will successfully get her out of the hospital with meaningful recovery. Despite this, the family continues to press for aggressive management. Very poor prognosis. Given her multiple medical problems and her worsening respiratory failure, she remains critically ill at this time. PLAN: Neuro: Bacterial Meningitis Encephalopathy- improving -continue precedex in the setting of severe anxiety associated with BiPAP use. -Monitor neuro status closely -CT brain and MRI brain negative for acute process -EEG showed diffuse encephalopathy- on Keppra IV Q12, Decadron 10mg Q6 -s/p LP 12/08 - clear CSF, WBC 978, TP:179, nl Glc, 96 Neutrophils. -Continue with abx, taper steroids- taper Decadron 5mg BID -Neuro: Dr. Howe Pulm: Acute respiratory failure- Extubated 12/15, persistent despite therapy, worsening today. Possible aspiration pneumonia History of bronchial asthma Small cell lung cancer status post chemotherapy -Continue with oxygen and maintain sats above 90%.Extubated 12/15 -Bronchodilators, IS, NIPPV PRN -back on BiPAP. will add bumex for forced diuresis today. may require reintubation. Given her overall clinical course, I am not sure if mechanical ventilation will succeed in getting her out of the hospital and in any meaningful recovery, but the family continues to want aggressive measures, and this may be our next option if her respiratory distress does not improve. -Pulm is following- Dr. Sparrow. -V/Q scan- Low prob PE CV: Hypertension Sinus Tachycardia Severe sepsis -On Lopressor 25mg Q12. monitor HR and BP and maintain MAP > 65 mmHg. Lactic acid: 1.8 -add lopressor 5mg iv q4h prn for HR > 110. -HR may be anxiety related. -Echo showed diffuse hypokinesis EF 25-30% : Acute kidney injury- resolved -Monitor renal function, Is and Os and electrolyte replacement per protocol. -Forced Diuresis with Bumex 1mg x1 -CT abd/pelvis : Pyelonephritis could not be excluded . -US abdomen: No masses, medical renal disease FEN/GI: Hyperglycemia Elevated AST Hypernatremia Chronic hyponatremia. 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 -On clear liquid diet -Colace/Senna for bowel regimen. ID: Sepsis Bacterial Meningitis Continue with abx per ID (Cefepime, Flagyl, Diflucan) Strep pneumonia and Legionella urinary antigen negative. s/p LP 12/07-studies consistent with bacterial meningitis, follow up on LP results- NGTD BC from 12/07: GNR x2 bottles. follow up on BC from 12/10 .WBC trending down Heme: Anemia, thrombocytopenia -Monitor CBC, coags, s/p transfusion 2 units of PRBC on arrival. - hgb 7.7 this AM. given her volume overload and respiratory distress, we will hold off on transfusion. -Heme-Onc is following- Dr. Gama. CSF cytology negative for malignancy. -s/p transfusion 1u PLT and 2u FFP 12/11. Endo: Hyperglycemia of Critical Illness -SSI with Accu-Cheks for glycemic control. GI prophylaxis with Protonix 40 mg daily and DVT prophylaxis with SCDs. Not on chemical anticoagulation prophylaxis due to anemia requiring blood transfusions and thrombocytopenia 12/08 Doppler US LE negative for DVT 12/09 V/Q scan low prob PE Lines: Right Infuse A port Palliative care is following Dispo: Remain in the ICU. Given her worsening hypoxic respiratory failure and respiratory distress, she remains critically ill. very poor prognosis. This patient remains critically ill with one or more organ systems which are or may become a threat to life. I have spent in excess of 55 minutes discontinuously in the care and management of this patient. This time is exclusive of procedures, and includes, but is not limited to, evaluation of the patient, review of the medical record, discussions with family, consultants, nursing staff, or respiratory therapy, and documentation in the medical record. Gideon Watkins MD Dec 17, 2016 09:03
[2016-12-17 09:43] LABS: NEUTROPHIL # MANUAL DIFF 9.5 TH/MM3 (1.8-7.7); POLYS (SEG NEUTROPHILS) 74 % (16-70); TARGET CELLS 1+ (NORMAL); WBC DIFF SAMPLE 100
[2016-12-17 09:45] LABS: ACANTHOCYTES OCC (NORMAL); CORRECTED NUCLEATED RBC 1 /100 WBC (0-0); HOWELL-JOLLY BODIES PRESENT (NONE SEEN); PLATELET ESTIMATE SMEAR LOW (NORMAL); PLATELET MORPHOLOGY ENLARGED (NORMAL); SCAN/DIFF FINAL DIFF MANUAL
[2016-12-17] MEDS ORDERED: METOPROLOL TARTRATE 5 MG/5 ML VIAL IV PUSH PRN (10:00)
--- NOTE | 2016-12-17 10:06 | PD.ONC.PN ---
Subjective Subjective Remarks Afebrile overnight. Patient back on bipap this AM. +concern for fluid overload. diuresis planned for this AM. at bedside. Objective Data Date Time Temp Pulse Resp B/P Pulse Ox O2 Delivery O2 Flow Rate FiO2 12/17/16 10:00 100 BiPAP 40 12/17/16 06:00 93 12/17/16 04:00 106 12/17/16 04:00 98.5 98 20 134/80 100 12/17/16 03:16 100 40 12/17/16 02:00 106 12/17/16 01:12 100 40 12/17/16 00:00 100 12/17/16 00:00 99.6 100 18 142/81 12/16/16 22:51 100 40 12/16/16 22:00 85 12/16/16 20:00 112 12/16/16 20:00 98.4 112 24 131/76 99 12/16/16 19:39 99 40 12/16/16 19:00 100 Bi-Pap 30 12/16/16 18:00 95 12/16/16 16:00 98.1 96 21 124/82 95 12/16/16 16:00 96 12/16/16 15:39 98 40 12/16/16 14:00 86 12/16/16 12:00 114 12/16/16 12:00 97.9 114 30 147/93 98 12/16/16 11:53 99 50 12/17/16 12/17/16 12/17/16 07:00 15:00 23:00 Intake Total 345 ml Output Total 700 ml Balance -355 ml Result Diagram: 12/17/16 0338 12/17/16 0338 Laboratory Results Laboratory Tests Test 12/17/16 03:38 White Blood Count 12.9 TH/MM3 Red Blood Count 2.49 MIL/MM3 Hemoglobin 7.7 GM/DL Hematocrit 23.0 % Mean Corpuscular Volume 92.2 FL Mean Corpuscular Hemoglobin 30.7 PG Mean Corpuscular Hemoglobin 33.4 % Concent Red Cell Distribution Width 16.9 % Platelet Count 73 TH/MM3 Mean Platelet Volume 13.8 FL Neutrophils (%) (Auto) 64.8 % Lymphocytes (%) (Auto) 14.3 % Monocytes (%) (Auto) 20.5 % Eosinophils (%) (Auto) 0.0 % Basophils (%) (Auto) 0.4 % Neutrophils # (Auto) 8.4 TH/MM3 Lymphocytes # (Auto) 1.8 TH/MM3 Monocytes # (Auto) 2.6 TH/MM3 Eosinophils # (Auto) 0.0 TH/MM3 Basophils # (Auto) 0.0 TH/MM3 CBC Comment AUTO DIFF Differential Total Cells 100 Counted Neutrophils % (Manual) 74 % Lymphocytes % 11 % Monocytes % 15 % Neutrophils # (Manual) 9.5 TH/MM3 Nucleated Red Blood Cells 1 /100 WBC Differential Comment FINAL DIFF MANUAL Platelet Estimate LOW Platelet Morphology Comment ENLARGED Target Cells 1+ Perera-[place] Bodies PRESENT Acanthocytes OCC Red Cell Morphology Comment Sodium Level 147 MEQ/L Potassium Level 2.7 MEQ/L Chloride Level 110 MEQ/L Carbon Dioxide Level 27.7 MEQ/L Anion Gap 9 MEQ/L Blood Urea Nitrogen 30 MG/DL Creatinine 0.92 MG/DL Estimat Glomerular Filtration 64 ML/MIN Rate Random Glucose 106 MG/DL Calcium Level 8.0 MG/DL Phosphorus Level 2.6 MG/DL Magnesium Level 1.8 MG/DL Albumin 2.2 GM/DL Administered Medications Medications (Trade) Dose Ordered Sig/Ermias Route PRN Reason Start Time Stop Time Status Last Admin Dose Admin Pantoprazole Sodium (Protonix Inj) 40 mg DAILY IV 12/07/16 16:15 12/17/16 07:40 Chlorhexidine Gluconate (Chlorhexidine 2% Cloth) Taper DAILY@04 TOP 12/08/16 04:00 12/04/17 03:59 12/17/16 03:02 Insulin Human Regular 1 1 Q6H SQ 12/07/16 18:00 12/13/16 17:34 Phenylephrine HCl 40 mg/Dextrose 500 ml @ 0 mls/hr TITRATE IV 12/08/16 02:00 12/09/16 05:11 Potassium Chloride 100 ml @ 50 mls/hr Q2H PRN IV For Potassium 2.8 - 3.2 mEq/L 12/08/16 01:00 12/17/16 05:42 Potassium Chloride 100 ml @ 25 mls/hr UNSCH PRN IV For Potassium 3.3 - 3.5 mEq/L 12/08/16 01:00 12/10/16 10:50 Magnesium Sulfate 2 gm/Sodium Chloride 100 ml @ 50 mls/hr UNSCH PRN IV For Magnesium 1.2 - 1.6 mg/dL 12/08/16 01:00 12/16/16 10:26 Potassium Phosphate/Sodium Chloride (Potassium Phosphate Inj/NS 250 ml Inj) 260 ml @ 42 mls/hr UNSCH PRN IV SEE LABEL COMMENTS 12/08/16 01:00 12/12/16 05:51 Acetaminophen (Tylenol 650 Mg/ 20 ml Liq) 650 mg Q4H PRN TUBE TEMP >101 12/08/16 03:30 12/14/16 01:12 Chlorhexidine Gluconate 15 ml 15 ml BID@08,20 MT 12/08/16 08:00 12/15/16 08:19 Levetriacetam/ Sodium Chloride (Keppra Inj/NS Inj) 110 ml @ 420 mls/hr Q12H IV 12/09/16 03:00 12/17/16 03:00 Fluconazole (Diflucan) 100 mg DAILY PO 12/09/16 11:00 12/17/16 07:43 Metoprolol Tartrate (Lopressor) 25 mg Q12HR PO 12/11/16 09:00 12/17/16 07:43 Morphine Sulfate 1 mg 1 mg Q4H PRN IV PUSH pain 12/11/16 11:15 12/17/16 08:52 Dexmedetomidine HCl 50 ml @ 0 mls/hr TITRATE IV 12/12/16 08:30 12/17/16 08:52 Cefepime HCl/ Sodium Chloride (Maxipime Inj/NS Inj) 100 ml @ 200 mls/hr Q8H IV 12/12/16 16:00 12/17/16 07:39 Sennosides (Senna Liq) 8.8 mg DAILY PO 12/13/16 09:00 12/17/16 07:43 Docusate Sodium (Colace Liq) 100 mg Q12HR PO 12/13/16 09:00 12/17/16 07:42 Hydralazine HCl (Apresoline Inj) 10 mg Q4H PRN IV SEE LABEL COMMENTS 12/15/16 02:15 12/15/16 02:18 Dexamethasone Sodium Phosphate (Decadron Inj) 5 mg BID IV PUSH 12/16/16 21:00 12/17/16 07:42 Objective Remarks GENERAL: Chronically ill appearing middle aged female, upright in bed, on bipap. at bedside. SKIN: Warm and dry. HEAD: Normocephalic. EYES: No injection or drainage. NECK: Supple, trachea midline. CARDIOVASCULAR: +S1/S2 RESPIRATORY: anterior butler with scattered ronchi. on bipap. GASTROINTESTINAL: Abdomen soft, non-tender, nondistended. EXTREMITIES: No cyanosis. SCD's in place. MUSCULOSKELETAL: Adequate muscle tone. NEUROLOGICAL: lethargic. PSYCHIATRIC: Appropriate mood and affect; insight and judgment normal. Assessment/Plan Problem List: (1) Sepsis Status: Acute Plan: --likely bacterial meningitis -- CSF gram stain shows no growth --on multiple abx as above, per ID--will need to remain on abx for ~21 days per ID --U/A neg --CXR: small left pleural effusion. (2) SCLC (small cell lung carcinoma) Status: Acute Plan: --s/p Carboplatin/PMO BUSINESS ANALY[employer] 16, last chemo given in early November (3) Normocytic anemia Status: Acute Plan: --transfuse as needed --monitor for bleeding (4) Thrombocytopenia Status: Acute Plan: --improving -- Likely consumptive due to acute illness. -- Fibrinogen OK. -- Transfuse for bleeding or platelets less than 20K. (5) Respiratory insufficiency Status: Acute Plan: --on bipap today --Chest x-ray shows bilateral lower lung infiltrates and consolidation in the left lower lobe. --on abx, steroids and diuresis. --pulmonology following Assessment 51y/o admitted with hypotension, lethargy, leukocytosis, now critically ill in [facility] [place] [facility], intubated and on pressor support h/o metastatic SCLC Plan 1. continue antibiotics, diuresis 2. monitor CBC 3. supportive care d/w patient's at bedside, patient's nurse and Dr. Watkins Problem Qualifiers (1) Sepsis: Qualified Code: A41.9 - Sepsis, due to unspecified organism Johanna Orozco Dec 17, 2016 10:06
--- NOTE | 2016-12-17 11:50 | HHI.IDPN ---
Note Infectious Disease Note ID coverage. Discussed with RN. is a 51-year-old female with past medical history significant for extensive small cell lung carcinoma with metastatic lesions in the liver diagnosed in September 2016. Patient undergoes chemotherapy last session on Nov 11 with last dose of Neulasta on Nov 11 (per Oncology). Admitted with severe sepsis. Growing GNB from BC from 12/07 11/10 - no ID yet, sent to [facility] for ID Repeat blood culture negative. Patient on BIPAP. Noted to desaturate without the BIPAP. Awake and following commands. Oriented to place and person. CXR shows interval development of bilateral lower lobe infiltrates. Being diuresed and having good UO. Antibiotics Cefepime Flagyl Fluconazole Lines Port R upper chest Past Medical History reviewed Allergies: Coded Allergies: Lipitor (Verified Adverse Reaction, Severe, Myalgia, 12/07/16) Codeine (Verified Adverse Reaction, Intermediate, Sedation, 12/07/16) Uncoded Allergies: SEASONAL ALLERGIES (Allergy, Mild, 03/13/08) estroven (Adverse Reaction, Intermediate, raised BP, 06/12/15) Objective . Vital Signs Date Time Temp Pulse Resp B/P Pulse Ox O2 Delivery O2 Flow Rate FiO2 12/17/16 10:00 100 BiPAP 40 12/17/16 07:00 100 Bi-Pap 40 12/17/16 06:00 93 12/17/16 04:00 106 12/17/16 04:00 98.5 98 20 134/80 100 12/17/16 03:16 100 40 12/17/16 02:00 106 12/17/16 01:12 100 40 12/17/16 00:00 100 12/17/16 00:00 99.6 100 18 142/81 12/16/16 22:51 100 40 12/16/16 22:00 85 12/16/16 20:00 112 12/16/16 20:00 98.4 112 24 131/76 99 12/16/16 19:39 99 40 12/16/16 19:00 100 Bi-Pap 30 12/16/16 18:00 95 12/16/16 16:00 98.1 96 21 124/82 95 12/16/16 16:00 96 12/16/16 15:39 98 40 12/16/16 14:00 86 12/16/16 12:00 114 12/16/16 12:00 97.9 114 30 147/93 98 12/16/16 11:53 99 50 Laboratory Tests Test 12/17/16 03:38 White Blood Count 12.9 TH/MM3 Red Blood Count 2.49 MIL/MM3 Hemoglobin 7.7 GM/DL Hematocrit 23.0 % Mean Corpuscular Volume 92.2 FL Mean Corpuscular Hemoglobin 30.7 PG Mean Corpuscular Hemoglobin 33.4 % Concent Red Cell Distribution Width 16.9 % Platelet Count 73 TH/MM3 Mean Platelet Volume 13.8 FL Neutrophils (%) (Auto) 64.8 % Lymphocytes (%) (Auto) 14.3 % Monocytes (%) (Auto) 20.5 % Eosinophils (%) (Auto) 0.0 % Basophils (%) (Auto) 0.4 % Neutrophils # (Auto) 8.4 TH/MM3 Lymphocytes # (Auto) 1.8 TH/MM3 Monocytes # (Auto) 2.6 TH/MM3 Eosinophils # (Auto) 0.0 TH/MM3 Basophils # (Auto) 0.0 TH/MM3 CBC Comment AUTO DIFF Differential Total Cells 100 Counted Neutrophils % (Manual) 74 % Lymphocytes % 11 % Monocytes % 15 % Neutrophils # (Manual) 9.5 TH/MM3 Nucleated Red Blood Cells 1 /100 WBC Differential Comment FINAL DIFF MANUAL Platelet Estimate LOW Platelet Morphology Comment ENLARGED Target Cells 1+ Perera-[place] Bodies PRESENT Acanthocytes OCC Red Cell Morphology Comment Sodium Level 147 MEQ/L Potassium Level 2.7 MEQ/L Chloride Level 110 MEQ/L Carbon Dioxide Level 27.7 MEQ/L Anion Gap 9 MEQ/L Blood Urea Nitrogen 30 MG/DL Creatinine 0.92 MG/DL Estimat Glomerular Filtration 64 ML/MIN Rate Random Glucose 106 MG/DL Calcium Level 8.0 MG/DL Phosphorus Level 2.6 MG/DL Magnesium Level 1.8 MG/DL Albumin 2.2 GM/DL Physical Exam GENERAL: Awake, following commands, has alopecia, NAD. SKIN: No rash. Has dark reddish color all distal fingers and toes (baseline) HEENT: No scleral icterus. No injection or drainage. Oral mucosa slightly dry. NECK: Trachea midline. Supple, nontender, no meningeal signs. CARDIOVASCULAR: HS audible. Port no evidence of infection RESPIRATORY: Breath sounds equal bilaterally. Coarse breath sounds. GASTROINTESTINAL: Abdomen soft,non tender, non distended. MUSCULOSKELETAL: Extremities without clubbing, cyanosis, or edema. NEUROLOGICAL: Awake and following Psych: could not be assessed. : Noriega in place, urine looks clear Assessment & Plan IMPRESSION GNR sepsis - ID pending; not growing well, growing in aerobic bottle Port in place. Septic Shock with Multiorgan dysfunction syndrome (MODS) - BP better, off pressors Meningitis: bacterial. - CSF C/S negative Aspiration pneumonia. Acute metabolic encephalopathy: Meningitis, Sepsis, SIADH Acute renal failure likely prerenal or sepsis Immune compromised, Small cell lung cancer with metastasis Anemia acute onset. Low grade temps. Temp lower. Lung infiltrates and desaturation. ? component of CHF. Recommendations: Continue Cefepime Continue Oral Diflucan Continue Flagyl UA and C/S Follow C/S Follow temps Monitor progress. Carlos Macias MD Dec 17, 2016 11:50
[2016-12-17] MEDS: NS + KCL 40 MEQ INJ 1,000 ML IV SCH ×2 (12:27→15:27)
--- NOTE | 2016-12-17 14:15 | HHI.PR ---
Subjective Remarks She was tachypneic this am. Got IV bumex . Now on a Ventimask 50 % Used bipap last PM. Good output. Anxious Objective Vital Signs Date Time Temp Pulse Resp B/P Pulse Ox O2 Delivery O2 Flow Rate FiO2 12/17/16 12:17 40 12/17/16 10:00 117 12/17/16 10:00 100 BiPAP 40 12/17/16 08:00 98.5 117 23 138/89 99 12/17/16 08:00 117 12/17/16 07:00 100 Bi-Pap 40 12/17/16 06:00 93 12/17/16 04:00 106 12/17/16 04:00 98.5 98 20 134/80 100 12/17/16 03:16 100 40 12/17/16 02:00 106 12/17/16 01:12 100 40 12/17/16 00:00 100 12/17/16 00:00 99.6 100 18 142/81 12/16/16 22:51 100 40 12/16/16 22:00 85 12/16/16 20:00 112 12/16/16 20:00 98.4 112 24 131/76 99 12/16/16 19:39 99 40 12/16/16 19:00 100 Bi-Pap 30 12/16/16 18:00 95 12/16/16 16:00 98.1 96 21 124/82 95 12/16/16 16:00 96 12/16/16 15:39 98 40 I/O 12/16/16 12/16/16 12/16/16 12/17/16 12/17/16 12/17/16 07:00 15:00 23:00 07:00 15:00 23:00 Intake Total 600 ml 590 ml 353 ml 345 ml Output Total 651 ml 500 ml 2000 ml 700 ml Balance -51 ml 90 ml -1647 ml -355 ml Intake Oral 200 ml 240 ml 353 ml IV Total 400 ml 350 ml 345 ml Output Urine Total 650 ml 500 ml 2000 ml 700 ml Stool Total 1 ml # Bowel Movements 0 Result Diagram: 12/17/1633712/17/16337 Objective Remarks This is an averagely built middle-aged lady who is alert on O2 HEENT: Head normocephalic. EYES: Pupils are reactive. Tongue is moist. Throat clear. Ears no inflammation. NECK: Supple. No bruits or thyroid enlargement. CHEST: Equal movements with scattered coarse wheezes throughout both lung butler with basal crackles. HEART: The heart sounds are regular S1-S2 with no murmur. No S3. ABDOMEN: Soft and protuberant without masses. No organomegaly. Bowel sounds are faint. Alert and moves all Extremities. EXTREMITIES: No lesions. Peripheral pulses are diminished. Skin was dry . Assessment and Plan Assessment and Plan IMPRESSION 1. Ventilator dependent respiratory failure.resolved 2. Bilateral pneumonia and ARDS 3. Has severe anemia 4. Acute kidney injury, resolving. 5. Small-cell lung cancer status post chemotherapy. 6. Meningitis 7. History of asthma and chronic bronchitis 8. Hypertension Plan : 1. Bipap 12/5 , 35 %.and wean FIO2 2. Nebs qid , albuterol. 3. Antibiotics per ID. 4. Soft diet as tolerated 5. Chest X ray,BMP in am. 6. Decadron 5 mgbid 7. Precedex /Fentanyl for agitation 8. Bumex 1 mg IV daily. Ronel Sparrow MD Dec 17, 2016 14:15
[2016-12-17] MEDS ORDERED: POTASSIUM CHLORIDE 20 MEQ CONTROLLED RELEASE TAB PO SCH (21:00)
[2016-12-18] VITALS: PULSE 70
[2016-12-18 02:00] VITALS: PULSE 72
[2016-12-18] MEDS: DEXMEDETOMIDINE INJ 50 ML IV SCH ×3 (02:00→08:17)
[2016-12-18 04:00] VITALS: PULSE 71
[2016-12-18] MEDS: CHLORHEXIDINE GLUCONATE 2 % 1 PACK (2 CLOTHS) TOP SCH (04:31)
[2016-12-18 06:00] VITALS: PULSE 72
--- NOTE | 2016-12-18 07:54 | HHI.CCPN ---
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 She presented to [facility] ED with altered mental status, lethargy and fever for the past couple days. Her last chemotherapy was two days ago however when the patient went to receive another session yesterday it was not given due to her condition and instead she was given IV hydration. On arrival to the ED, the patient was tachycardic with a heart rate of 110-120s and initially she was hypotensive with a systolic blood pressure 80s-90s. She also was found to have a temperature of 100.7 rectally. In the ED she was given 2 liter boluses of normal saline with improvement of her blood pressure to 141/ 86. Her laboratory data showed mild acute kidney injury with a creatinine level of 1.31 and hyponatremia with a sodium level of 131. In addition, the patient had significant leukocytosis with a WBC of 71.4 associated with bandemia 28. Also, her hemoglobin was 6.8 with hematocrit of 20.2. Two units of packed RBCs have been ordered by the ED physician. The patient received a Neulasta injection post her chemotherapy. Due to her altered mental status, a CT scan of the brain was obtained which was negative for acute process. The patient also had MRI of the brain which was negative for any metastatic disease. A chest x-ray in the ED showed Infusaport in good position and mild interstitial prominence. The patient received Vancomycin and cefepime in the ED , and a CT scan of the abdomen and pelvis has been ordered. Overall, history is limited as the patient is a poor historian. However, she is not complaining of any pain. 3/ Last night patient became tachycardic, hypoxic and worsening mental status she was subsequently intubated and placed on mechanical ventilation. She received additional 2L NS for hypotension and started on Neosyn 50 mics. s/p transfusion 2u PRBC yesterday for Hgb 6.8 her Hgb 11.2 this morning. 12/09 Patient remains sedated with Diprivan and intubated. On Neosyn 40 mics and bicarb drip. T:99.9 last night WBC trending down 24 today from 55. s/p LP showed clear CSF, WBC 978, TP:179 , nl glc 12/10 Patient is sedated with Diprivan and intubated. Off Neosyn. Afebrile. V/Q scaln yesterday low prob. BC from 12/07 GNR. 12/11 No acute events overnight. Sedated with Diprivan and intubated. Afebrile. WBC trending down. PLT 18 this morning. Tolerated CPAP x 4 hrs yesterday 12/12 Patient remains sedated and intubated. On ACV RR20, TV 500, PEEP:5, FIO2 55% . Afebrile. s/p transfusion 1u PLT and FFP yesterday per heme. 12/13 No acute events overnight. On Precedex infusion . CXR overall better today. Off Bumex drip. Afebrile. 12/14: Remains intubated, awake. UO adequate off Bumex drip. CXR stable to improving. Plt count 38. 12/15: Remains intubated, wide awake and following commands. CXR today improved. Bilateral wheezing 12/16 Patient is on Precedex drip 0.5 extubated yesterday and now on BIPAP 07/13 with 30% FIO2. Afebrile. 12/17: worsening hypoxia overnight. placed back on BiPAP. this AM more dyspneic, not tolerating BiPAP well. still on precedex. tachypneic. leukocytosis persists. K 2.7 this AM, being replaced. Hgb slightly lower at 7.7 this AM. tachycardic, but likely related to agitation and anxiety and not secondary to anemia in the setting of ongoing volume overload. 12/18: decision yesterday to transition to comfort measures. this morning, appears comfortable. resting peacefully. I talked with her family members today. plan to go towards hospice. Objective Vital Signs Date Time Temp Pulse Resp B/P Pulse Ox O2 Delivery O2 Flow Rate FiO2 12/18/16 06:00 72 12/17/16 20:48 Venturi Mask 6.00 50 12/17/16 20:00 142/90 91 12/17/16 19:29 33 12/17/16 16:00 98.1 Intake and Output 12/17/16 12/17/16 12/18/16 08:00 16:00 00:00 Intake Total 345 ml 940 ml 628 ml Output Total 700 ml 1700 ml 600 ml Balance -355 ml -760 ml 28 ml Result Diagram: 12/17/168 12/17/16337 Objective Remarks gen: middle-aged female, lying in bed, resting peacefully. chest: unlabored. A/P Assessment and Plan ASSESSMENT: 51yF with widely metastatic small cell lung cancer, course complicated by sepsis, presumed bacterial meningitis, encephalopathy, hypoxic respiratory failure. Yesterday transitioned to comfort measures. will attempt to get to Hospice today. PLAN: -- continue morphine 4mg iv q15min prn for pain/agitation/terminal delirium/air hunger -- continue ativan 4mg iv q15min prn for agitation/sedation/terminal delirium. -- hospice consult. -- vitals qShift -- no lab draws. Gideon Watkins MD Dec 18, 2016 07:54
[2016-12-18] MEDS: MORPHINE SULFATE 4 MG/ML INJ IV PUSH PRN ×2 (08:17→14:25)
[2016-12-18] MEDS ORDERED: BUMETANIDE INJ 1 MG/4 ML VIAL IV PUSH SCH (09:00)
[2016-12-18] MEDS: LORazepam 2 MG/ML VIAL IV PUSH PRN (10:25)
--- NOTE | 2016-12-18 10:35 | PD.ONC.PN ---
Subjective Subjective Remarks Afebrile overnight. Yesterday Ms. Galaviz decided she wanted to transition to comfort measures only. She is waiting to speak with hospice. at bedside. She tells me she wants to go home. Objective Data Date Time Temp Pulse Resp B/P Pulse Ox O2 Delivery O2 Flow Rate FiO2 12/18/16 07:00 100 Venturi Mask 50 12/18/16 06:00 72 12/18/16 04:00 71 12/18/16 04:00 71 12/18/16 02:00 72 12/18/16 00:00 70 12/18/16 00:00 70 12/17/16 22:00 71 12/17/16 20:48 Venturi Mask 6.00 50 12/17/16 20:00 133 12/17/16 20:00 133 142/90 91 12/17/16 19:29 33 12/17/16 19:00 100 Venturi Mask 40 12/17/16 18:00 80 12/17/16 16:00 78 12/17/16 16:00 98.1 78 16 122/91 100 12/17/16 15:40 100 40 12/17/16 14:00 92 12/17/16 12:17 40 12/17/16 12:00 98.5 117 23 138/89 99 12/17/16 12:00 91 12/18/16 12/18/16 12/18/16 07:00 15:00 23:00 Intake Total 156 ml Output Total 250 ml Balance -94 ml Result Diagram: 12/17/16 0338 12/17/16 0338 Administered Medications Medications (Trade) Dose Ordered Sig/Ermias Route PRN Reason Start Time Stop Time Status Last Admin Dose Admin Dexmedetomidine HCl (Precedex Inj) 50 ml @ 0 mls/hr TITRATE IV 12/12/16 08:30 12/18/16 08:17 Morphine Sulfate (Morphine Inj) 4 mg Q15M PRN IV PUSH see below 12/17/16 20:00 12/18/16 08:17 Lorazepam (Ativan Inj) 4 mg Q15M PRN IV PUSH see below 12/17/16 20:00 12/18/16 10:25 Objective Remarks GENERAL: Chronically ill female, sitting up in bed with at bedside. SKIN: Warm and dry. NEUROLOGICAL: awake and alert. Assessment/Plan Assessment 51y/o with metastatic SCLC, admitted in septic shock. Patient now asking for comfort measures only. Plan 1. comfort measures only per patient request 2. await hospice consult. Johanna Orozco Dec 18, 2016 10:35
--- NOTE | 2016-12-18 14:22 | HHI.PR ---
Subjective Remarks She is sleepy . Has decided on hospice. On Morphine /Ativan . Now on a Ventimask 50 % . Hospice will see her. Objective Vital Signs Date Time Temp Pulse Resp B/P Pulse Ox O2 Delivery O2 Flow Rate FiO2 12/18/16 07:00 100 Venturi Mask 50 12/18/16 06:00 72 12/18/16 04:00 71 12/18/16 04:00 71 12/18/16 02:00 72 12/18/16 00:00 70 12/18/16 00:00 70 12/17/16 22:00 71 12/17/16 20:48 Venturi Mask 6.00 50 12/17/16 20:00 133 12/17/16 20:00 133 142/90 91 12/17/16 19:29 33 12/17/16 19:00 100 Venturi Mask 40 12/17/16 18:00 80 12/17/16 16:00 78 12/17/16 16:00 98.1 78 16 122/91 100 12/17/16 15:40 100 40 I/O 12/17/16 12/17/16 12/17/16 12/18/16 12/18/16 12/18/16 07:00 15:00 23:00 07:00 15:00 23:00 Intake Total 345 ml 940 ml 628 ml 156 ml Output Total 700 ml 1700 ml 600 ml 250 ml Balance -355 ml -760 ml 28 ml -94 ml IV Total 345 ml 940 ml 628 ml 156 ml Output Urine Total 700 ml 1700 ml 600 ml 250 ml # Bowel Movements 1 Result Diagram: 12/17/16 0338 12/17/16 0338 Objective Remarks This is an averagely built middle-aged lady who is sleepy HEENT: Head normocephalic. EYES: closed NECK: Supple. No bruits or thyroid enlargement. CHEST: Equal movements with scattered wheezes throughout both lung butler with basal crackles. HEART: The heart sounds are regular S1-S2 with no murmur. No S3. ABDOMEN: Soft and protuberant without masses. No organomegaly. Bowel sounds are faint.Neuro with no deficits. EXTREMITIES: No lesions. Peripheral pulses are diminished. Skin was dry . Assessment and Plan Assessment and Plan IMPRESSION 1. Ventilator dependent respiratory failure.resolved 2. Bilateral pneumonia and ARDS 3. Has severe anemia 4. Acute kidney injury, resolving. 5. Small-cell lung cancer status post chemotherapy. 6. Meningitis 7. History of asthma and chronic bronchitis 8. Hypertension Plan : 1. O2 at 50 % ventimask 2. Nebs qid , PRN albuterol. 3. Antibiotics per ID. 4. PO diet 5. D/C IV meds. 6. Hospice to see . Will sign off . Ronel Sparrow MD Dec 18, 2016 14:22
--- NOTE | 2017-01-01 15:16 | HHI.DS ---
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 She presented to [facility] ED with altered mental status, lethargy and fever for the past couple days. Her last chemotherapy was two days ago however when the patient went to receive another session yesterday it was not given due to her condition and instead she was given IV hydration. On arrival to the ED, the patient was tachycardic with a heart rate of 110-120s and initially she was hypotensive with a systolic blood pressure 80s-90s. She also was found to have a temperature of 100.7 rectally. In the ED she was given 2 liter boluses of normal saline with improvement of her blood pressure to 141/ 86. Her laboratory data showed mild acute kidney injury with a creatinine level of 1.31 and hyponatremia with a sodium level of 131. In addition, the patient had significant leukocytosis with a WBC of 71.4 associated with bandemia 28. Also, her hemoglobin was 6.8 with hematocrit of 20.2. Two units of packed RBCs have been ordered by the ED physician. The patient received a Neulasta injection post her chemotherapy. Due to her altered mental status, a CT scan of the brain was obtained which was negative for acute process. The patient also had MRI of the brain which was negative for any metastatic disease. A chest x-ray in the ED showed Infusaport in good position and mild interstitial prominence. The patient received Vancomycin and cefepime in the ED , and a CT scan of the abdomen and pelvis has been ordered. Overall, history is limited as the patient is a poor historian. However, she is not complaining of any pain. 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 She presented to [facility] ED with altered mental status, lethargy and fever for the past couple days. Her last chemotherapy was two days ago however when the patient went to receive another session yesterday it was not given due to her condition and instead she was given IV hydration. On arrival to the ED, the patient was tachycardic with a heart rate of 110-120s and initially she was hypotensive with a systolic blood pressure 80s-90s. She also was found to have a temperature of 100.7 rectally. In the ED she was given 2 liter boluses of normal saline with improvement of her blood pressure to 141/ 86. Her laboratory data showed mild acute kidney injury with a creatinine level of 1.31 and hyponatremia with a sodium level of 131. In addition, the patient had significant leukocytosis with a WBC of 71.4 associated with bandemia 28. Also, her hemoglobin was 6.8 with hematocrit of 20.2. Two units of packed RBCs have been ordered by the ED physician. The patient received a Neulasta injection post her chemotherapy. Due to her altered mental status, a CT scan of the brain was obtained which was negative for acute process. The patient also had MRI of the brain which was negative for any metastatic disease. A chest x-ray in the ED showed Infusaport in good position and mild interstitial prominence. The patient received Vancomycin and cefepime in the ED , and a CT scan of the abdomen and pelvis has been ordered. Overall, history is limited as the patient is a poor historian. However, she is not complaining of any pain. 12/08 Last night patient became tachycardic, hypoxic and worsening mental status she was subsequently intubated and placed on mechanical ventilation. She received additional 2L NS for hypotension and started on Neosyn 50 mics. s/p transfusion 2u PRBC yesterday for Hgb 6.8 her Hgb 11.2 this morning. 12/09 Patient remains sedated with Diprivan and intubated. On Neosyn 40 mics and bicarb drip. T:99.9 last night WBC trending down 24 today from 55. s/p LP showed clear CSF, WBC 978, TP:179 , nl glc 12/10 Patient is sedated with Diprivan and intubated. Off Neosyn. Afebrile. V/Q scaln yesterday low prob. BC from 12/07 GNR. 12/11 No acute events overnight. Sedated with Diprivan and intubated. Afebrile. WBC trending down. PLT 18 this morning. Tolerated CPAP x 4 hrs yesterday 12/12 Patient remains sedated and intubated. On ACV RR20, TV 500, PEEP:5, FIO2 55% . Afebrile. s/p transfusion 1u PLT and FFP yesterday per heme. 12/13 No acute events overnight. On Precedex infusion . CXR overall better today. Off Bumex drip. Afebrile. 12/14: Remains intubated, awake. UO adequate off Bumex drip. CXR stable to improving. Plt count 38. 12/15: Remains intubated, wide awake and following commands. CXR today improved. Bilateral wheezing 12/16 Patient is on Precedex drip 0.5 extubated yesterday and now on BIPAP 10/ with 30% FIO2. Afebrile. 12/17: worsening hypoxia overnight. placed back on BiPAP. this AM more dyspneic, not tolerating BiPAP well. still on precedex. tachypneic. leukocytosis persists. K 2.7 this AM, being replaced. Hgb slightly lower at 7.7 this AM. tachycardic, but likely related to agitation and anxiety and not secondary to anemia in the setting of ongoing volume overload. 12/18: decision yesterday to transition to comfort measures. this morning, appears comfortable. resting peacefully. I talked with her family members today. plan to go towards hospice. She was transferred to Hospice in stable condition with a poor prognosis. Pt Condition on Discharge: Deteriorating Discharge Disposition: Hospice/Med Facility Discharge Instructions DIET: Follow Instructions for: As Tolerated, No Restrictions Activities you can perform: Regular-No Restrictions Gideon Watkins MD Jan 01, 2017 15:16
== END 2016-12-18 14:50 | disposition hospice, inpatient (51) | DRG 870 ==
LOC: NEPC 10:44 → NEDA 15:40 → HIME 18:40
PROVIDERS: ADMIT Internal Medicine Critical Care Medicine; ATTEND Internal Medicine Critical Care Medicine
PROC: 30233N1 Transfusion of Nonautologous Red Blood Cells into Peripheral Vein, Percutaneous Approach (ICD-10-PCS; 2016-12-07)
PROC: 5A1955Z Respiratory Ventilation, Greater than 96 Consecutive Hours (ICD-10-PCS; principal; 2016-12-08)
PROC: 0BH17EZ Insertion of Endotracheal Airway into Trachea, Via Natural or Artificial Opening (ICD-10-PCS; 2016-12-08)
PROC: 0CJS8ZZ Inspection of Larynx, Via Natural or Artificial Opening Endoscopic (ICD-10-PCS; 2016-12-08)
PROC: 009U3ZX Drainage of Spinal Canal, Percutaneous Approach, Diagnostic (ICD-10-PCS; 2016-12-08)
PROC: B01BZZZ Fluoroscopy of Spinal Cord (ICD-10-PCS; 2016-12-08)
PROC: 30233K1 Transfusion of Nonautologous Frozen Plasma into Peripheral Vein, Percutaneous Approach (ICD-10-PCS; 2016-12-11)
PROC: 30233R1 Transfusion of Nonautologous Platelets into Peripheral Vein, Percutaneous Approach (ICD-10-PCS; 2016-12-11)
DX: A41.50 Gram-negative sepsis, unspecified (principal); D65 Disseminated intravascular coagulation [defibrination syndrome]; J96.01 Acute respiratory failure with hypoxia; R65.21 Severe sepsis with septic shock; G93.41 Metabolic encephalopathy; G04.2 Bacterial meningoencephalitis and meningomyelitis, not elsewhere classified; J69.0 Pneumonitis due to inhalation of food and vomit; E22.2 Syndrome of inappropriate secretion of antidiuretic hormone; N17.9 Acute kidney failure, unspecified; E87.2 Acidosis; C78.7 Secondary malignant neoplasm of liver and intrahepatic bile duct; C79.51 Secondary malignant neoplasm of bone; C34.90 Malignant neoplasm of unspecified part of unspecified bronchus or lung; E46 Unspecified protein-calorie malnutrition; N12 Tubulo-interstitial nephritis, not specified as acute or chronic; E87.0 Hyperosmolality and hypernatremia; E83.42 Hypomagnesemia; E83.51 Hypocalcemia; J44.9 Chronic obstructive pulmonary disease, unspecified; I10 Essential (primary) hypertension; K21.9 Gastro-esophageal reflux disease without esophagitis; E86.0 Dehydration; I73.00 Raynaud's syndrome without gangrene; E87.6 Hypokalemia; I50.9 Heart failure, unspecified; D69.59 Other secondary thrombocytopenia; M54.2 Cervicalgia; R73.9 Hyperglycemia, unspecified; D64.9 Anemia, unspecified; J45.909 Unspecified asthma, uncomplicated; T45.1X5A Adverse effect of antineoplastic and immunosuppressive drugs, initial encounter; F41.9 Anxiety disorder, unspecified; Z51.5 Encounter for palliative care; Z66 Do not resuscitate; Z68.24 Body mass index [BMI] 24.0-24.9, adult; Z78.1 Physical restraint status; Z87.891 Personal history of nicotine dependence; Z88.5 Allergy status to narcotic agent
CPT/HCPCS: 31500; 36430; 36600; 62270; 70450; 70553; 71010; 74176; 76700; 76937; 77003; 78582; 80048; 80053; 81001; 82040; 82310; 82805; 82945; 82948; 83010; 83605; 83615; 83735; 84100; 84132; 84155; 84157; 85007; 85025; 85027; 85049; 85379; 85384; 85397; 85610; 85730; 86022; 86140; 86403; 86850; 86900; 86901; 86920; 86927; 87015; 87040; 87070; 87077; 87086; 87102; 87116; 87205; 87206; 87449; 87529; 87641; 87804; 89051; 93306; 93970; 94002; 94003; 94640; 94664; 95819; 96361; 96365; 96375; 99292; A9540; A9567; A9577; C9113; C9399; J0133; J0290; J0360; J0456; J0610; J0692; J0695; J0696; J1100; J1953; J2060; J2185; J2248; J2270; J2370; J2543; J2765; J2930; J3010; J3370; J3475; J3480; J7030; J7042; J7050; J7060; P9016; P9017; P9037